=== PATIENT | male | born 1945 | race Caucasian/White ===

== ENCOUNTER 2019-12-07 09:51 | Inpatient (IN) ==
[2019-12-07] MEDS ORDERED: NITROGLYCERIN 2% OINTMENT 30GM TUBE EXT STA (10:19)
[2019-12-07] MEDS ORDERED: MoRPHine SULFATE 2 MG/ML CARP IV STA (10:19)
--- NOTE | 2019-12-07 10:21 | Emergency Department Note ---
Impression & Plan Precordial chest pain, CHF (congestive heart failure), Elevated troponin ED Provider Note NAME: MATILDE HOOKS AGE: 74 SEX: M : 1945 ARRIVES VIA: Ambulance INFORMANT: [Patient] ED PROVIDER(S): [Tesfaye Elizondo MD] CHIEF COMPLAINT: Chest pain HISTORY OF PRESENT ILLNESS: Patient is a 74-year-old male presents to the ER with chest pressure. The patient states that around 2 hours ago during masturbation, he began to have substernal chest pain that he thinks may have gone slightly to his jaw. The pain was a 6/10. He was sweating, nauseated and short of breath. He took 1 nitro which helped some. EMS gave him 3 more additional nitroglycerin and 4 baby aspirin. The patient states the pain is now a 3. There has been no cough or cold or congestion. No urinary complaints. The patient was admitted to [facility] a few weeks ago for heart failure. He was doing well since discharge up until today. REVIEW OF SYSTEMS: See HPI for pertinent positives and negatives. A total of ten systems were reviewed and were otherwise negative. PMHx/PSHx: See Below SOCIAL HISTORY: See Below. PHYSICAL EXAM: GENERAL: Patient is in no acute distress. HEENT: No acute trauma, normocephalic atraumatic, mucous membranes moist, no nasal congestion, no scleral icterus. NECK: No stridor, no adenopathy, no meningismus, trachea is midline. LUNGS: Clear to auscultation bilaterally, no wheeze, no rhonchi, breath sounds equal. Increased respiratory rate. HEART: Without murmurs gallops or rubs, regular rate and rhythm. Chest: Nontender chest wall. ABDOMEN: Soft, nontender, bowel sounds positive, no hernias, no peritonitis. EXTREMITIES: No cyanosis, mild bilateral pedal edema, full range of motion of all the joints without pain or difficulty, no signs for acute trauma. NEUROLOGIC: Oriented x 3, no acute motor or sensory deficits, no focal weakness. SKIN: No rash, no jaundice, no diaphoresis. DIFFERENTIAL DIAGNOSIS: Cardiac ischemia, aortic dissection, pulmonary embolism, pneumothorax, pneumonia, pericarditis, myocarditis, esophageal rupture, GERD, cholecystitis, pancreatitis, musculoskeletal, as well as other pathologies. EMERGENCY DEPARTMENT COURSE/PROCEDURES: ECG: Indication was chest pain. The ECG shows a ventricularly paced rhythm with a rate of 77. There is no ST elevation, no PVCs. The QTc is 527. No old ECGs available for comparison. Continuous Cardiac Monitoring: An order was placed for continuous cardiac monitoring. The monitor shows a rate of 71 with a ventricular pacemaker. MEDICAL DECISION MAKING: There is no leukocytosis. The patient is anemic with a hemoglobin of 11.8. There is a normal platelet count. INR is elevated at 4, he is over anticoagulated on his Coumadin. There is some evidence for renal insufficiency/renal failure with a creatinine of 2.15. I do not really have any baseline creatinines to use for comparison. Glucose was elevated at 231. No concerning liver enzyme elevation. No evidence for pancreatitis. BNP was elevated consistent with fluid overload. Chest film does show some CHF, no pneumonia. ECG shows a ventricular pacemaker, no acute ischemia. Cardiac enzyme testing x1 is elevated. This troponin elevation could indicate some cardiac injury/strain. The patient was given Nitropaste, he received IV morphine, IV Phenergan. The patient was given IV Lasix. The patient is now pain-free. I do think the patient requires a hospital stay. He presents with chest pain concerning for cardiac ischemia. He does have an elevated troponin, he does appear to be in some heart failure. He was just in the hospital about 2 weeks ago with CHF and a non-ST elevation [place]. I spoke to the patient, I spoke with case management. The on-call hospitalist was consulted. Past Med/Surg History Medical History Arrhythmia Atrial fibrillation Chronic kidney disease Diabetes mellitus, type 2 GERD (gastroesophageal reflux disease) Hyperlipidemia Hypertension ICD (implantable cardioverter-defibrillator) in place Surgical History History of cardiac cath History of heart artery stent History of heart valve replacement Social History Smoking Status: Never smoker Second Hand Exposure: No; Hx Alcohol Use: No Hx Substance Use: No Preferred Language: Occitan Communication Ability: Effective Prosthetics Technician Required: No Beliefs That Will Affect Care: None Current Living Situation: Alone current occupation: retired Other Information That Helps Us Care for You: No Feels Safe at Home: Yes Safety Concerns: Feels Safe At This Time Allergies Allergies Allergy/AdvReac Type Severity Reaction Status Date / Time heparin Allergy Unknown Unknown Unverified 12/07/19 11:10 Home Meds Home Medications Medication Instructions Recorded Confirmed albuterol sulfate 2 puff INHALATION QID 12/07/19 12/07/19 amiodarone 200 mg PO QAM 12/07/19 12/07/19 amoxicillin 2,000 mg PO DIRECTED PRN 12/07/19 12/07/19 ascorbic acid (vitamin C) [Vitamin 500 mg PO BID 12/07/19 12/07/19 C] atorvastatin 40 mg PO QAM 12/07/19 12/07/19 clopidogrel 75 mg PO QAM 12/07/19 12/07/19 cyanocobalamin (vitamin B-12) 1,000 mcg PO QAM 12/07/19 12/07/19 [Vitamin B-12] docusate sodium 100 mg PO BID 12/07/19 12/07/19 furosemide 80 mg PO QAM 12/07/19 12/07/19 insulin aspart U-100 [Novolog 0 unit SUBCUT As Directed 12/07/19 12/07/19 Flexpen U-100 Insulin] insulin degludec [Tresiba 36 unit SUBCUT QAM 12/07/19 12/07/19 FlexTouch U-200] isosorbide mononitrate 30 mg PO QAM 12/07/19 12/07/19 lisinopril 5 mg PO QAM 12/07/19 12/07/19 metoprolol succinate 25 mg PO HS 12/07/19 12/07/19 metoprolol succinate 50 mg PO DAILY 12/07/19 12/07/19 nitroglycerin 0.4 mg SUBLINGUAL DIRECTED PRN 12/07/19 12/07/19 omeprazole 20 mg PO QAM PRN 12/07/19 12/07/19 warfarin 1.25 - 2.5 mg PO DAILY 12/07/19 12/07/19 Results & Data (ED) Vital Signs Vital Signs - 24 hr 12/07/19 09:52 12/07/19 10:01 12/07/19 10:47 Temperature 36.4 C L Temperature Source Oral Pulse Rate 76 Pulse Rate [Right] 72 Respiratory Rate 24 24 Blood Pressure 148/62 H Blood Pressure [Right Arm] 148/65 H Blood Pressure Mean 90 Blood Pressure Mean [Right Arm] 92 Pulse Oximetry 94 94 100 Oxygen Delivery Method Room Air Room Air Room Air Sepsis Recent Fever Within 48 Hours No Sepsis New/Unexplained Change in Mental Status N/A Sepsis Action Taken by Nursing No Action Required 12/07/19 11:16 12/07/19 12:20 Temperature Temperature Source Pulse Rate Pulse Rate [Right] 72 72 Respiratory Rate 24 24 Blood Pressure Blood Pressure [Right Arm] 152/65 H 166/72 H Blood Pressure Mean Blood Pressure Mean [Right Arm] 94 103 Pulse Oximetry 99 100 Oxygen Delivery Method Room Air Room Air Sepsis Recent Fever Within 48 Hours Sepsis New/Unexplained Change in Mental Status Sepsis Action Taken by Skilled Nursing Medications Current Medication List: was personally reviewed by me Laboratory Data Attestation: I reviewed the patient's lab results. Result diagrams: 12/07/19 11:14 12/07/19 11:14 Lab Results 12/07/19 12/07/19 12/07/19 Range/Units 11:14 11:14 11:14 WBC 8.56 (4.8-10.8) K/uL RBC 3.82 L (4.7-6.1) M/uL Hgb 11.8 L (14.0-18.0) g/dL Hct 37.2 L (42-52) % MCV 97.4 (80-100) fL MCH 30.9 (25-34) pg MCHC 31.7 L (32-36) g/dL RDW Std Deviation 48.3 H (36.4-46.3) fL RDW Coeff of Rosio 13.6 (11.5-14.5) % Plt Count 235 (130-400) K/uL MPV 10.8 H (7.4-10.4) fL Immature Gran % (Auto) 0.5 % Neut % (Auto) 77.7 % Lymph % (Auto) 12.0 % [place] % (Auto) 8.4 % Eos % (Auto) 1.2 % Baso % (Auto) 0.2 % Neut # (Auto) 6.65 H (1.4-6.5) K/uL Lymph # (Auto) 1.03 L (1.2-3.4) K/uL [place] # (Auto) 0.72 H (0.11-0.59) K/uL Eos # (Auto) 0.10 (0-0.5) K/uL Baso # (Auto) 0.02 (0-0.2) K/uL Immature Gran # (Auto) 0.04 H (0.00-0.02) K/uL PT 39.0 H (9.0-12.0) Seconds INR 4.0 H (0.9-1.1) APTT 47.4 H* (21.0-31.0) Seconds PTT Ratio 1.7 Sodium 139 (136-145) mmol/L Potassium 4.6 (3.5-5.1) mmol/L Chloride 106 (98-107) mmol/L Carbon Dioxide 23 (21-32) mmol/L Anion Gap 10.0 (3-11) BUN 34 H (7-18) mg/dl Creatinine 2.15 H (0.6-1.4) mg/dl Est Cr Clr Drug Dosing Not Reportable Est GFR ( Amer) 34.1 Est GFR (Non-Af Amer) 29.5 BUN/Creatinine Ratio 15.9 (10-20) Glucose 231 H (70-99) mg/dl Calcium 9.0 (8.5-10.1) mg/dl Total Bilirubin 0.4 (0.2-1) mg/dl AST 38 H (15-37) U/L ALT 39 (12-78) U/L Alkaline Phosphatase 100 (45-117) U/L Troponin I 0.409 H* (0-0.045) ng/ml NT-Pro-B Natriuret Pep 1886 H (0-900) pg/ml Total Protein 7.6 (6.4-8.2) gm/dl Albumin 3.5 (3.4-5.0) gm/dl Globulin 4.1 H (2.5-4.0) gm/dl Albumin/Globulin Ratio 0.8 L (0.9-2) Lipase 193 (73-393) U/L Administered Medications Discontinued Medications Furosemide (Furosemide 40 Mg/4 Ml Vial) 60 mg IV NOW STA Stop: 12/07/19 12:38 Last Admin: 12/07/19 12:59 Dose: 60 mg Documented by: [id number] Promethazine HCl (Phenergan) 6.25 mg in 50.25 mls @ 201 mls/hr IV NOW STA Stop: 12/07/19 12:58 Last Admin: 12/07/19 12:59 Dose: 201 mls/hr Documented by: [id number] Morphine Sulfate (Morphine Sulfate 2 Mg/Ml Carp) 2 mg IV NOW STA Stop: 12/07/19 10:20 Last Admin: 12/07/19 10:44 Dose: 2 mg Documented by: [id number] Nitroglycerin (Nitroglycerin 2% Ointment 30gm Tube) 1 inch EXT NOW STA Stop: 12/07/19 10:20 Last Admin: 12/07/19 10:44 Dose: 1 inch Documented by: [id number] Imaging Data Radiologist's Impression: SINGLE VIEW CHEST CLINICAL HISTORY: Atypical chest pain. FINDINGS: 2 AP, portable, upright chest radiographs are obtained. No prior studies are available for comparison at the time of dictation. The examination is degraded by portable technique and patient rotation. The patient is status post midline sternotomy and cardiac valve surgery. A 3-lead cardiac AICD partially obscures the left mid chest. The heart is enlarged noting atherosclerotic calcification of the thoracic aorta. There is pulmonary vascular congestion with mild interstitial edema. There are small pleural effusions with bibasilar atelectasis. No pneumothorax is seen. The skeletal structures are osteopenic. The bony thorax is grossly intact. IMPRESSION: 1. Cardiomegaly and AICD with evidence of congestive failure and interstitial edema. 2. There are small pleural effusions with bibasilar atelectasis. Blood Pressure Blood Pressure Findings: Elevated blood pressure Blood Pressure Disposition: further management by hospitalist Discharge Plan Visit Data Chief Complaint: Chest Pain ED Provider: Tesfaye Elizondo Discharge Problem: Precordial chest pain, CHF (congestive heart failure), Elevated troponin Patient Disposition: Admitted As Inpatient Condition: Good Forms Stand Alone Forms: My [facility] Prescriptions Prescriptions: No Action amoxicillin 500 mg capsule 2,000 mg PO DIRECTED PRN (Reason: premedication for dental appt) RF: 0 atorvastatin 40 mg tablet 40 mg PO QAM RF: 0 amiodarone 200 mg tablet 200 mg PO QAM RF: 0 metoprolol succinate 50 mg tablet extended release 24 hr 50 mg PO DAILY RF: 0 isosorbide mononitrate 30 mg tablet extended release 24 hr 30 mg PO QAM RF: 0 warfarin 2.5 mg tablet 1.25 - 2.5 mg PO DAILY RF: 0 clopidogrel 75 mg tablet 75 mg PO QAM RF: 0 furosemide 80 mg tablet 80 mg PO QAM RF: 0 nitroglycerin 0.4 mg tablet, sublingual 0.4 mg sublingual DIRECTED PRN (Reason: Chest Pain) RF: 0 omeprazole 20 mg capsule,delayed release(DR/EC) 20 mg PO QAM PRN (Reason: upset stomach/heartburn) RF: 0 lisinopril 5 mg tablet 5 mg PO QAM RF: 0 albuterol sulfate 90 mcg/actuation HFA aerosol inhaler 2 puff INHALATION QID RF: 0 insulin aspart U-100 [Novolog Flexpen U-100 Insulin] 100 unit/mL (3 mL) insulin pen 0 unit SUBCUT As Directed RF: 0 Tresiba FlexTouch U-200 200 unit/mL (3 mL) insulin pen 36 unit SUBCUT QAM RF: 0 cyanocobalamin (vitamin B-12) [Vitamin B-12] 1,000 mcg Tablet 1,000 mcg PO QAM RF: 0 ascorbic acid (vitamin C) [Vitamin C] 500 mg Tablet,Chewable 500 mg PO BID RF: 0 docusate sodium 100 mg Capsule 100 mg PO BID RF: 0 metoprolol succinate 50 mg Tablet Extended Release 24 Hr 25 mg PO HS RF: 0 Referrals Referrals: Glenn Payne PA-C [Primary Care Provider] - Discharge Problem: CHF (congestive heart failure) Qualifiers: Heart failure type: unspecified Heart failure chronicity: acute on chronic Qualified Code(s): I50.9 - Heart failure, unspecified
[2019-12-07 11:34] LABS: Basophils # (auto) 0.02 K/uL (0-0.2); Basophils % (auto) 0.2 %; Eosinophils % (auto) 1.2 %; Hematocrit (blood only) 37.2 % (42-52); Hemoglobin 11.8 g/dL (14.0-18.0); Immature Granulocytes # (auto) 0.04 K/uL (0.00-0.02); Immature Granulocytes % (auto) 0.5 %; Lymphocytes # (auto) 1.03 K/uL (1.2-3.4); Mean Corpuscular Hemoglobin 30.9 pg (25-34); Mean Corpuscular Hgb Conc 31.7 g/dL (32-36); Mean Corpuscular Volume 97.4 fL (80-100); Mean Platelet Volume 10.8 fL (7.4-10.4); Monocytes # (auto) 0.72 K/uL (0.11-0.59); Monocytes % (auto) 8.4 %; Neutrophils # (auto) 6.65 K/uL (1.4-6.5); Neutrophils % (auto) 77.7 %; Platelet Count 235 K/uL (130-400); RDW Coefficient of Variation 13.6 % (11.5-14.5); RDW Standard Deviation 48.3 fL (36.4-46.3); Red Blood Count 3.82 M/uL (4.7-6.1); White Blood Count 8.56 K/uL (4.8-10.8)
--- NOTE | 2019-12-07 11:53 | XRay Report ---
SINGLE VIEW CHEST CLINICAL HISTORY: Atypical chest pain. FINDINGS: 2 AP, portable, upright chest radiographs are obtained. No prior studies are available for comparison at the time of dictation. The examination is degraded by portable technique and patient ro tation. The patient is status post midline sternotomy and cardiac valve surgery. A 3-lead cardiac AIC D partially obscures the left mid chest. The heart is enlarged noting atherosclerotic calcification o f the thoracic aorta. There is pulmonary vascular congestion with mild interstitial edema. There are small pleural effusions with bibasilar atelectasis. No pneumothorax is seen. The skeletal structures are osteopenic. The bony thorax is grossly intact. IMPRESSION: 1. Cardiomegaly and AICD with evidence of congestive failure and interstitial edema. 2. There are small pleural effusions with bibasilar atelectasis. ACT 112: Negative or not required by law. Electronically signed by: Tesfaye Lock M.D. 12/07/2019 11:52 AM
[2019-12-07 11:54] LABS: Partial Thromboplastin Ratio 1.7
[2019-12-07 11:56] LABS: Alanine Aminotransferase 39 U/L (12-78); Albumin Level 3.5 gm/dl (3.4-5.0); Aspartate Aminotransferase 38 U/L (15-37); BUN Creatinine Ratio 15.9 (10-20); Blood Urea Nitrogen 34 mg/dl (7-18); Carbon Dioxide 23 mmol/L (21-32); Chloride 106 mmol/L (98-107); Est GFR (African American) 34.1; Est GFR (Non-African American) 29.5; Glucose 231 mg/dl (70-99); Lipase 193 U/L (73-393); Potassium 4.6 mmol/L (3.5-5.1); Sodium 139 mmol/L (136-145)
[2019-12-07 11:57] LABS: Partial Thromboplastin Time 47.4 Seconds (21.0-31.0)
[2019-12-07 12:19] LABS: Albumin Globulin Ratio 0.8 (0.9-2); Alkaline Phosphatase 100 U/L (45-117); Bilirubin,Total 0.4 mg/dl (0.2-1); Globulin 4.1 gm/dl (2.5-4.0); NT Pro B Type Natriuretic Pept 1886 pg/ml (0-900); Total Protein 7.6 gm/dl (6.4-8.2)
[2019-12-07 12:24] LABS: Troponin I 0.409 ng/ml (0-0.045)
[2019-12-07] MEDS ORDERED: FUROSEMIDE 40 MG/4 ML VIAL IV STA ×2 (12:37→15:31)
[2019-12-07] MEDS ORDERED: PROMETHAZINE 6.25 MG/50.25 ML BAG IV STA (12:44)
--- NOTE | 2019-12-07 13:25 | History & Physical Report ---
Date of Service December 07, 2019 Assessment & Plan (1) Precordial chest pain: (2) Elevated troponin: (3) Acute on chronic HFrEF (heart failure with reduced ejection fraction): (4) CAD (coronary artery disease): This is a 74-year-old male who has significant past medical history of Chronic HFrEF 2/2 to ischemic cardiomyopathy with AICD placement, CAD with history of CABG x1 SVG to RCA 2013, history of aortic valve replacement in 2005 with a redo in 2013 and subsequent mitral valve replacement both bioprosthetic in 2013, PCI to LAD 07/2018 secondary to abnormal stress test, insulin-dependent T2DM, HTN, HLD, LBBB, CKD stage IV who presents to ED secondary to acute onset chest pain 2 hours prior to arrival. In ED patient received IV morphine along with 1 inch nitroglycerin paste and 6.25 mg of IV promethazine. His chest pain subsequently completely resolved. Lab work revealed elevated troponin at 0.409, elevated proBNP at 1886, glucose 231, stable renal function at BUN 34, creatinine 2.15, supratherapeutic INR 4.0, H&H 11.8 and 37.2. EKG was paced without any ischemic changes. Chest x-ray consistent with Acute failure interstitial edema, small bilateral pleural effusions and bibasilar atelectasis. admit to PCU Continue IV diuresis Lasix 60mg IV BID strict I and O, daily weights, heart healthy low NA diet consult cardiology cycle troponins, ecg elevated trop possibly in setting of demand ischemia due to CHF - INR is supratherapeutic repeat echocardiogram (apparently done at [facility] 2 weeks ago will try to obtain records) (5) Supratherapeutic INR: INR 4.0, no s/sx of bleeding hold warfarin repeat INR in a.m. goal 2-3 (6) Diabetes mellitus, type 2: Last A1c 6.5 06/12, he is insulin-dependent obtain A1c in a.m. He did not take a.m. dose of tresiba this morning give 14 units lantus x 1 now Lantus SQ BID 0-14 units, Novolog per protocol consult glycemic pharmacy, appreciate their management (7) CKD (chronic kidney disease) stage 4, GFR 15-29 ml/min: baseline cr 2.2-2.7 bun/cr stable at 34 and 2.15 Monitor closely in setting of IV diuresis (8) OBED on CPAP: CPAP at bedtime (9) Hypertension: Blood pressure elevated in ED, 166/72 Continue metoprolol, lisinopril, Imdur Monitor (10) Hyperlipidemia: Continue statin (11) Pernicious anemia: H&H stable at 11.8 and 37.2 Likely anemia of chronic disease component On vitamin B12 injections as outpatient (12) DVT prophylaxis: Warfarin currently supratherapeutic, INR 4.0 no signs or symptoms of bleeding hold warfarin, repeat INR in a.m. Disposition: admit to PCU Follow up: PCP Glenn Payne PA-C upon discharge Pt was seen and examined in collaboration with Dr. Paredes, please see addendum History of Present Illness Chief Complaint: Chest pain 2 hours prior to arrival. Primary Care Provider: Glenn Payne PA-C This is a 74-year-old male who has significant past medical history of Chronic HFrEF 2/2 to ischemic cardiomyopathy with AICD placement, CAD with history of CABG x1 SVG to RCA 2013, history of aortic valve replacement in 2005 with a redo in 2013 and subsequent mitral valve replacement both bioprosthetic in 2013, PCI to LAD 07/2018 secondary to abnormal stress test, insulin-dependent T2DM, HTN, HLD, LBBB, CKD stage IV who presents to ED secondary to acute onset chest pain 2 hours prior to arrival. Patient elicits he was masturbating when he developed substernal chest pain that radiated to his jaw. Pain was 6/10 and was associated with diaphoresis, shortness of breath and nausea. He took 1 nitro with minimal improvement in symptoms. He called EMS and subsequently had 3 additional sublingual nitroglycerin and received 4 baby aspirin. His pain did improve to 3/10 but did not resolve. He describes similar symptoms to angina equivalent in the past. He denies any lightheadedness, dizziness, fever, chills, syncope, palpitations, cough, emesis, abdominal pain, dysuria, increased urgency or frequency with urination, melena, hematochezia. Denies any lower ex tremity swelling, orthopnea or PND. Of significance patient was recently hospitalized at [facility] as a transfer from [facility] for CHF and NSTEMI. Spell stay was 11/23 to 11/25. He did undergo transthoracic echo at that time which revealed EF 55 to 60% per PCP visit. He was treated with IV Lasix during his hospital stay. His hospital course was otherwise uncomplicated and he was discharged to home. He had been doing well until 2 hours prior to arrival today. He admits to not monitoring his weights at home, but he feels his baseline weight is around 316. He has not been doing well with his diet although he has been trying to limit salt intake. He does not monitor his fluid intake. Has been compliant with his 80 mg of Lasix daily. In ED patient received IV morphine along with 1 inch nitroglycerin paste and 6.25 mg of IV promethazine. His chest pain subsequently completely resolved. Lab work revealed elevated troponin at 0.409, elevated proBNP at 1886, glucose 231, stable renal function at BUN 34, creatinine 2.15, supratherapeutic INR 4.0, H&H 11.8 and 37.2. EKG was paced without any ischemic changes. Chest x-ray consistent with Acute failure interstitial edema, small bilateral pleural effusions and bibasilar atelectasis. Allergies Allergy/AdvReac Type Severity Reaction Status Date / Time heparin Allergy Unknown Unknown Unverified 12/07/19 11:10 Home Medications Home Medications Medication Instructions Recorded Confirmed Type albuterol sulfate 2 puff INHALATION QID 12/07/19 12/07/19 History amiodarone 200 mg PO QAM 12/07/19 12/07/19 History amoxicillin 2,000 mg PO DIRECTED PRN 12/07/19 12/07/19 History ascorbic acid (vitamin C) [Vitamin 500 mg PO BID 12/07/19 12/07/19 History C] atorvastatin 40 mg PO QAM 12/07/19 12/07/19 History clopidogrel 75 mg PO QAM 12/07/19 12/07/19 History cyanocobalamin (vitamin B-12) 1,000 mcg PO QAM 12/07/19 12/07/19 History [Vitamin B-12] docusate sodium 100 mg PO BID 12/07/19 12/07/19 History furosemide 80 mg PO QAM 12/07/19 12/07/19 History insulin aspart U-100 [Novolog 0 unit SUBCUT As Directed 12/07/19 12/07/19 History Flexpen U-100 Insulin] insulin degludec [Tresiba 36 unit SUBCUT QAM 12/07/19 12/07/19 History FlexTouch U-200] isosorbide mononitrate 30 mg PO QAM 12/07/19 12/07/19 History lisinopril 5 mg PO QAM 12/07/19 12/07/19 History metoprolol succinate 25 mg PO HS 12/07/19 12/07/19 History metoprolol succinate 50 mg PO DAILY 12/07/19 12/07/19 History nitroglycerin 0.4 mg SUBLINGUAL DIRECTED PRN 12/07/19 12/07/19 History omeprazole 20 mg PO QAM PRN 12/07/19 12/07/19 History warfarin 1.25 - 2.5 mg PO DAILY 12/07/19 12/07/19 History Past Med/Surg History Medical History (Updated 12/07/19 @ 14:14 by Ariela Otero PA-C) Arrhythmia Atrial fibrillation CAD (coronary artery disease) coronary artery bypass grafting x1 with reverse saphenous vein from aorta to right coronary artery via endoscopic saphenous vein harvesting. Chronic HFrEF (heart failure with reduced ejection fraction) Chronic kidney disease CKD (chronic kidney disease) stage 4, GFR 15-29 ml/min Diabetes mellitus, type 2 GERD (gastroesophageal reflux disease) Hyperlipidemia Hypertension OBED on CPAP PAF (paroxysmal atrial fibrillation) Pernicious anemia Surgical History (Updated 12/07/19 @ 14:04 by Ariela Otero PA-C) H/O aortic valve replacement Status post bioprosthetic AVR in 2004 Aortic valve prosthesis stenosis and mitral regurgitation requiring redo sternotomy jul 21 2013 with redo AVR and subsequent MVR. H/O mitral valve replacement History of appendectomy History of cardiac cath History of colonoscopy History of coronary artery bypass graft x 1 coronary artery bypass grafting x1 with reverse saphenous vein from aorta to right coronary artery via endoscopic saphenous vein harvesting. History of heart artery stent History of heart valve replacement ICD (implantable cardioverter-defibrillator) in place Family History Father Heart disease [place] @ age 64 Mother , age 34, stomach ca Cancer Social History Smoking Status: Never smoker Second Hand Exposure: No; Hx Alcohol Use: No Hx Substance Use: No Preferred Language: Taiwanese Communication Ability: Effective Field Counsel Required: No Beliefs That Will Affect Care: None Current Living Situation: Alone current occupation: retired Other Information That Helps Us Care for You: No Feels Safe at Home: Yes Safety Concerns: Feels Safe At This Time Review of Systems Review of Systems: All systems reviewed & are unremarkable except as noted in HPI & below Physical Exam Physical Exam: Constitutional: Morbidly obese, M, lying in bed, WD/WN, vitals as above, NAD, dyspneic with conversation, answers questions appropriately Head: Normocephalic, Atraumatic Eyes: PERRL, conjunctivae normal, anicteric sclerae ENMT: external ear and nose normal, oropharynx normal Neck: trachea midline, no thyromegaly normal visual inspection Respiratory: normal respiratory effort, lungs clear to auscultation, no wheeze, rales, bibasilar rhonchi. Normal insp/exp effort, no accessory muscle use Cardiovascular: RRR, no murmur, trace pretibial edema , b/l pedal pulse +2 Vessels: no JVD or carotid bruit Chest: normal inspection of chest Abdomen: protuberant abd, normal bowel sounds, soft, nontender, no hepatosplenomegaly Musculoskeletal: no cyanosis or clubbing, extremities motor strength 5/5 Skin: no rashes, warm and dry normal turgor Neurologic: PERRL, EOMI, accommodation nl, no face palsy, no dysarthria CN's II-XI intact bilaterally and moves all extremities Psychiatric: A+Ox3, euthymic affect Lymphatic: no cervical or axillary lymphadenopathy : deferred Results & Data Results & Data ([facility]) Vital Signs (Past 12 Hours) Vital Signs Temp Pulse Pulse Resp BP BP Pulse Ox 12/07/19 12:20 72 24 166/72 H 100 12/07/19 11:16 72 24 152/65 H 99 12/07/19 10:47 72 24 148/65 H 100 12/07/19 10:01 94 12/07/19 09:52 36.4 C L 76 24 148/62 H 94 Laboratory Results Short CBC 12/07/19 12/07/19 Range/Units 11:14 11:14 WBC 8.56 (4.8-10.8) K/uL Hgb 11.8 L (14.0-18.0) g/dL Hct 37.2 L (42-52) % Plt Count 235 (130-400) K/uL Creatinine 2.15 H (0.6-1.4) mg/dl NT-Pro-B Natriuret Pep 1886 H (0-900) pg/ml BMP 12/07/19 11:14 Sodium 139 Potassium 4.6 Chloride 106 Carbon Dioxide 23 BUN 34 H Creatinine 2.15 H Glucose 231 H Calcium 9.0 Cardiac Enzymes 12/07/19 Range/Units 11:14 Troponin I 0.409 H* (0-0.045) ng/ml Liver Function 12/07/19 Range/Units 11:14 Total Bilirubin 0.4 (0.2-1) mg/dl AST 38 H (15-37) U/L ALT 39 (12-78) U/L Alkaline Phosphatase 100 (45-117) U/L Albumin 3.5 (3.4-5.0) gm/dl Diagnostic Findings CXR: IMPRESSION: 1. Cardiomegaly and AICD with evidence of congestive failure and interstitial edema. 2. There are small pleural effusions with bibasilar atelectasis. Medications Administered Discontinued Medications Furosemide (Furosemide 40 Mg/4 Ml Vial) 60 mg IV NOW STA Stop: 12/07/19 12:38 Last Admin: 12/07/19 12:59 Dose: 60 mg Documented by: [id number] Promethazine HCl (Phenergan) 6.25 mg in 50.25 mls @ 201 mls/hr IV NOW STA Stop: 12/07/19 12:58 Last Admin: 12/07/19 12:59 Dose: 201 mls/hr Documented by: [id number] Morphine Sulfate (Morphine Sulfate 2 Mg/Ml Carp) 2 mg IV NOW STA Stop: 12/07/19 10:20 Last Admin: 12/07/19 10:44 Dose: 2 mg Documented by: [id number] Nitroglycerin (Nitroglycerin 2% Ointment 30gm Tube) 1 inch EXT NOW STA Stop: 12/07/19 10:20 Last Admin: 12/07/19 10:44 Dose: 1 inch Documented by: [id number] ECG Findings: + paced rhythm Code Status & VTE Plan Code Status Full Code VTE Prophylaxis Plan VTE Prophylaxis will be ordered: Yes Supervising Physician Co-Signing Physician Notes I saw this patient with the physician medical staff assistant, I participated in the history, physical, review of systems, and physical exam. I reviewed the medications with the patient and the physician medical staff assistant and helped reconcile the medications. I helped take a detailed family and social history as well. I formulated the assessment and plan personally with the physician medical staff assistant and went over it with the patient. Physical Exam Gen-AAO x 3, NAD, Afebrile Head-NCAT, EOMI, PERRLA, Anicteric Sclera, No Posterior Pharyngeal Erythema Neck-Supple, No JVD, No Thyromegaly, No Masses, No LAD, No Bruits Lungs-Clear to Auscultation Bilaterally, No Rales, No Rhonchi, No Wheezing, No Crepitus Chest-No S4, +S1, +S2, No S3, No Murmurs, No Rubs, No Gallops, No Ectopy Abdomen-Soft, Bowel Sounds Present, Non Tender, Non Distended, No Hepatomegaly, No Splenomegaly, No Palpable Masses, No Rebound, No Rigidity, No Guarding Musculoskeletal-Full Range of Motion Bilaterally, No CVAT Extremities-No Cyanosis, No Clubbing, No Edema Nuero-Cranial Nerves II-XII grossly intact, Motor WNL, DTRs WNL, Strength WNL, Non Focal Psych-Normal Mood
--- NOTE | 2019-12-07 15:18 | Electrocardiogram Report ---
Test Reason : Blood Pressure : / mmHG Vent. Rate : 077 BPM Atrial Rate : 077 BPM P-R Int : 154 ms QRS Dur : 146 ms QT Int : 466 ms P-R-T Axes : -09 -65 039 degrees QTc Int : 527 ms Atrial-sensed ventricular-paced rhythm Biventricular pacemaker detected Abnormal ECG No previous ECGs available Confirmed by Feliz Alvarado ([id number]) on 12/07/2019 3:18:20 PM Referred By: REFERRED SELF Confirmed By:Feliz Alvarado
[2019-12-07] MEDS ORDERED: DEXTROSE 50% 50 ML SYRINGE IV PRN (15:31)
[2019-12-07] MEDS ORDERED: GLUCOSE 40% GEL 15 GM TUBE PO PRN (15:31)
[2019-12-07] MEDS ORDERED: ONDANSETRON INJ 2 MG/ML 2 ML VIAL IV PRN (15:31)
[2019-12-07] MEDS ORDERED: GLUCOSE 10 TABS/TUBE PO PRN (15:31)
[2019-12-07] MEDS ORDERED: POLYETHYLENE (MIRALAX) 17 GM PACK PO PRN (15:31)
[2019-12-07] MEDS ORDERED: ACETAMINOPHEN 325 MG TAB PO PRN (15:31)
[2019-12-07] MEDS ORDERED: CARBOHYDRATES FOR HYPOGLYCEMIA PO PRN (15:31)
[2019-12-07] MEDS ORDERED: GLUCAGON FOR INJ 1 MG VIAL SQ PRN (15:31)
[2019-12-07] MEDS ORDERED: PHARMACY GLYCEMIC MGMT CONSULT PRN (15:34)
[2019-12-07] MEDS ORDERED: PANTOprazole 40 MG TAB PO PRN (15:38)
[2019-12-07] MEDS ORDERED: INSULIN GLARGINE SOLOSTAR 100 UNITS/ML 3 ML PEN SC ONE ×2 (15:45→16:00)
--- NOTE | 2019-12-07 15:48 | Cardiology Consultation ---
Date of Consultation December 07, 2019 Assessment & Plan (1) Acute on chronic HFrEF (heart failure with reduced ejection fraction): (2) Non-ST elevation (NSTEMI) myocardial infarction: (3) Syncope: (4) CKD (chronic kidney disease) stage 4, GFR 15-29 ml/min: (5) Supratherapeutic INR: (6) H/O mitral valve replacement: (7) H/O aortic valve replacement: (8) PAF (paroxysmal atrial fibrillation): 74-year-old male admitted with chest discomfort and shortness of breath secondary to acute decompensated heart failure. Most recent echocardiogram performed at outside hospital suggested normal systolic function, however, patient's ejection fraction has typically range between 35 -44% over the past 2 years. Evidence of pulmonary edema and pleural effusion on chest x-ray. Agree with IV diuretic therapy, Lasix 60 mg every 12 hours. INR is supratherapeutic. No indication for IV heparin currently. Repeat INR in a.m. Elevated troponin likely secondary to demand ischemia in the setting of acute decompensated heart failure however, plaque rupture event not excluded. Trend cardiac enzymes x3 sets. Repeat resting 2D transthoracic echocardiogram. Follow daily weight, GFR, fluid balance, and electrolytes. ICD interrogation ordered for assessment of paroxysmal dysrhythmias and/or therapies/shocks delivered. Possible syncopal episode noted. Normal biventricular pacing noted on telemetry. Continue other cardiovascular medications including metoprolol succinate, amiodarone, topical nitrates, clopidogrel, and atorvastatin. 40 minutes critical care time spent evaluating patient, reviewing complex medical history, reviewing studies and lab data, formulating plan of care, and discussion with patient at bedside. History of Present Illness Reason for Consultation: CP, CHF, elevated troponin Requesting Physician: Dr. Paredes Attending Physician: Corwin Paredes DO History of Present Illness Complex 74-year-old patient presented to the emergency department via EMS secondary to chest discomfort and shortness of breath. Complex history noted below. Patient recently hospitalized in [facility] and then [place] due to acute decompensated heart failure. Discharge approximately 10 days ago. This morning, patient awoke in his usual state of health. Developed chest discomfort after masturbation. Wearing CPAP. Describes a tightness which was 5/10 in intensity. +associated shortness of breath as well as diaphoresis. Discomfort unrelieved with one sublingual nitroglycerin at home. After taking nitroglycerin, patient laid back on his bed. States he felt quite weak. Unsure if he suffered a syncopal episode. EMS was summoned and he was brought to the emergency department for further evaluation and treatment. Patient treated with IV Lasix, topical nitrates, sublingual and nitroglycerin. Chest discomfort relieved in the ER. 500 cc diuresis recorded. Troponin mildly elevated with supratherapeutic INR. Denies any ICD shocks or therapies, however, asymptomatic with prior ICD shock in 2019. Currently, patient is resting comfortably. Chest pain has resolved. Denies shortness of breath, orthopnea, or PND. No lower extremity today, however, states typically occurs while ambulating and then resolves overnight. No palpitations, lightheadedness, dizziness, syncope, or near syncope. Telemetry monitoring demonstrates ventricular paced rhythm. ECG on admission demonstrates atrial sensed, biventricular paced rhythm. Problem List: 1. Bicuspid aortic valve, severe aortic valve stenosis 2. Status post bioprosthetic AVR in 2004. 3. 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 Status post July 21, 2013 redo sternotomy, redo AVR (23 mm Trifecta), chordal sparing mitral valve replacement with a 31 mm Magna ease valve, and coronary artery bypass grafting x1 with reverse saphenous vein from aorta to right coronary artery via endoscopic saphenous vein harvesting. 5. Postoperative course complicated by a return to the operating room for bleeding which required repair of a hole at the aortic valve suture line, paroxysmal atrial fibrillation postoperatively, and a left bundle branch block 6. Moderate LV systolic dysfunction, NYHA Class III congestive heart failure 7. Status post August 31, 2014 biventricular ICD implantation by Dr. Sorensen. 8. Paroxysmal atrial fibrillation and flutter. [id number] score is 5 points. 9. Chronic coumadin anticoagulation. 10. Ventricular fibrillation leading to ICD discharges on March 30, 2018 and May 21, 2018. 11. Chronic renal insufficiency 12. Obstructive sleep apnea 13. Pernicious anemia 14. Hypertension 15. Dyslipidemia 16. Obesity 17. OBED, CPAP therapy 18. Appendectomy 2D echocardiogram report summary 11/25/2019, [facility]: 1. This study is technically difficult, technically difficult and improved to adequate with the use of Definity. 2. Normal global function of the left ventricle. 3. LV ejection fraction is 55 - 60%. 4. No left ventricular regional wall motion abnormalities. 5. Normal right ventricular size and systolic function. 6. No pericardial effusion is seen. 7. No prior study was available for comparison. July 15, 2018 TTE Interpretation Summary (as per Dr. Iglesias): The qualitative LV ejection fraction is 35-39% (moderately reduced). The LV wall thickness is moderately increased (concentric). The base and mid posterior wall is severely hypokinetic. The inferior wall is severely hypokinetic. The remaining left ventricular myocardial wall segments are mildly hypokinetic. The left atrium is severely enlarged. There is an aortic valve bioprosthetic present. The aortic valve prosthesis systolic gradients are normal for this type prosthesis. There is a mitral valve bioprosthesis present. The mitral valve prosthesis systolic gradients are normal for this type prosthesis. The proximal ascending thoracic aorta is mildly enlarged. Compared to last available study changes are noted as follows: Left ventricular ejection fraction has declined Diagnostic cardiac catheterization at [facility] on August 02, 2018 revealed a culprit lesion in the mid LAD that was successfully treated with one 2.75 x 16 mm Synergy Monorail Everolimuis-eluting Romney Chromium stent. The ostial [place] RCA was occluded. The SVG to RCA was patent and filled anterograde and retrograde back to the ostium of the RCA (with no efflux into aorta) and distally to the distal rPLs and rPDA. The LCx had moderate disease. The LVEDP was 17 mmHg. Allergies Allergy/AdvReac Type Severity Reaction Status Date / Time heparin Allergy Unknown Unknown Unverified 12/07/19 11:10 Home Medications Home Medications Medication Instructions Recorded Confirmed Type albuterol sulfate 2 puff INHALATION QID 12/07/19 12/07/19 History amiodarone 200 mg PO QAM 12/07/19 12/07/19 History amoxicillin 2,000 mg PO DIRECTED PRN 12/07/19 12/07/19 History ascorbic acid (vitamin C) [Vitamin 500 mg PO BID 12/07/19 12/07/19 History C] atorvastatin 40 mg PO QAM 12/07/19 12/07/19 History clopidogrel 75 mg PO QAM 12/07/19 12/07/19 History cyanocobalamin (vitamin B-12) 1,000 mcg PO QAM 12/07/19 12/07/19 History [Vitamin B-12] docusate sodium 100 mg PO BID 12/07/19 12/07/19 History furosemide 80 mg PO QAM 12/07/19 12/07/19 History insulin aspart U-100 [Novolog 0 unit SUBCUT As Directed 12/07/19 12/07/19 History Flexpen U-100 Insulin] insulin degludec [Tresiba 36 unit SUBCUT QAM 12/07/19 12/07/19 History FlexTouch U-200] isosorbide mononitrate 30 mg PO QAM 12/07/19 12/07/19 History lisinopril 5 mg PO QAM 12/07/19 12/07/19 History metoprolol succinate 25 mg PO HS 12/07/19 12/07/19 History metoprolol succinate 50 mg PO DAILY 12/07/19 12/07/19 History nitroglycerin 0.4 mg SUBLINGUAL DIRECTED PRN 12/07/19 12/07/19 History omeprazole 20 mg PO QAM PRN 12/07/19 12/07/19 History warfarin 1.25 - 2.5 mg PO DAILY 12/07/19 12/07/19 History Patient History Medical History (Updated 12/08/19 @ 10:34 by Bryan Iglesias DO) Arrhythmia Atrial fibrillation CAD (coronary artery disease) coronary artery bypass grafting x1 with reverse saphenous vein from aorta to right coronary artery via endoscopic saphenous vein harvesting. Chronic HFrEF (heart failure with reduced ejection fraction) Chronic kidney disease CKD (chronic kidney disease) stage 4, GFR 15-29 ml/min Diabetes mellitus, type 2 GERD (gastroesophageal reflux disease) Hyperlipidemia Hypertension OBED on CPAP PAF (paroxysmal atrial fibrillation) Pernicious anemia Surgical History (Updated 12/07/19 @ 14:04 by Ariela Otero PA-C) H/O aortic valve replacement Status post bioprosthetic AVR in 2004 Aortic valve prosthesis stenosis and mitral regurgitation requiring redo sternotomy jul 21 2013 with redo AVR and subsequent MVR. H/O mitral valve replacement History of appendectomy History of cardiac cath History of colonoscopy History of coronary artery bypass graft x 1 coronary artery bypass grafting x1 with reverse saphenous vein from aorta to right coronary artery via endoscopic saphenous vein harvesting. History of heart artery stent History of heart valve replacement ICD (implantable cardioverter-defibrillator) in place Family History Father Heart disease [place] @ age 64 Mother , age 34, stomach ca Cancer Social History Smoking Status: Never smoker Second Hand Exposure: No; Hx Alcohol Use: No Hx Substance Use: No Preferred Language: Djiboutian Communication Ability: Effective Range Management Specialist Required: No Beliefs That Will Affect Care: None Current Living Situation: Alone current occupation: retired Other Information That Helps Us Care for You: No Feels Safe at Home: Yes Safety Concerns: Feels Safe At This Time Review of Systems Review of Systems: All systems reviewed & are unremarkable except as noted in HPI & below Physical Exam Constitutional: well nourished and + morbidly obese; no acute distress Respiratory: no respiratory distress and no labored breathing Auscultation: + diminished lung sounds (Right base) and + rales (Right base); no rhonchi and no wheezes Cardiovascular: Rate/Rhythm: regular rate and regular rhythm Heart Sounds: normal S1, normal S2 and + murmur (2/6 systolic murmur heard best at the cardiac base.) Vessels: + JVD; + radial pulses abnormal Extremities: no edema Skin: no rashes, warm and dry Neurologic: moves all extremities; no focal motor deficits Speech / Cognition: normal speech Motor/Sensory: no tremor Psychiatric: A+Ox3, euthymic affect Results & Data ([facility]) Vital Signs (Past 12 Hours) Vital Signs Temp Pulse Pulse Resp BP BP Pulse Ox 12/07/19 15:18 36.6 C 87 16 169/80 H 96 12/07/19 15:02 96 12/07/19 14:45 80 20 172/82 H 96 12/07/19 12:20 72 24 166/72 H 100 12/07/19 11:16 72 24 152/65 H 99 12/07/19 10:47 72 24 148/65 H 100 12/07/19 10:01 94 12/07/19 09:52 36.4 C L 76 24 148/62 H 94 (1) Syncope Syncope type: unspecified Qualified Code(s): R55 - Syncope and collapse
[2019-12-07] MEDS: FUROSEMIDE 60 MG in SYRINGE 0 ML IV SCH (16:16)
[2019-12-07] MEDS: INSULIN ASPART 100 UNITS/ML 3 ML PEN SC SCH ×2 (17:54→20:41)
[2019-12-07] MEDS: NITROGLYCERIN 2% OINTMENT 30GM TUBE EXT SCH ×2 (17:57→23:33)
[2019-12-07] MEDS: ALBUTEROL HFA 8 GM INHALER INH SCH (19:18)
[2019-12-07] MEDS: DOCUSATE SODIUM 100 MG CAP PO SCH (20:40)
[2019-12-07] MEDS: ASCORBIC ACID 500 MG TAB PO SCH (20:42)
[2019-12-07] MEDS ORDERED: METOPROLOL SUCC 25MG EXT REL TAB PO SCH (21:00)
[2019-12-08 06:00] LABS: Hematocrit (blood only) 40.4 % (42-52); Hemoglobin 13.1 g/dL (14.0-18.0); Mean Corpuscular Hemoglobin 31.5 pg (25-34); Mean Corpuscular Hgb Conc 32.4 g/dL (32-36); Mean Corpuscular Volume 97.1 fL (80-100); Platelet Count 264 K/uL (130-400); RDW Coefficient of Variation 13.7 % (11.5-14.5); RDW Standard Deviation 49.1 fL (36.4-46.3); Red Blood Count 4.16 M/uL (4.7-6.1); White Blood Count 9.85 K/uL (4.8-10.8)
[2019-12-08 06:06] LABS: INR 3.4 (0.9-1.1)
[2019-12-08 06:34] LABS: Albumin Globulin Ratio 0.8 (0.9-2); Albumin Level 3.7 gm/dl (3.4-5.0); BUN Creatinine Ratio 16.1 (10-20); Bilirubin,Total 0.7 mg/dl (0.2-1); Calcium 9.1 mg/dl (8.5-10.1); Creatinine Clr Calc Pharmacy 37.1 ml/min; Est GFR (Non-African American) 25.9; Globulin 4.5 gm/dl (2.5-4.0); Potassium 4.5 mmol/L (3.5-5.1); Total Protein 8.2 gm/dl (6.4-8.2)
[2019-12-08] MEDS: NITROGLYCERIN 2% OINTMENT 30GM TUBE EXT SCH ×3 (06:40→17:11)
[2019-12-08] MEDS: ALBUTEROL HFA 8 GM INHALER INH SCH ×4 (07:15→19:09)
[2019-12-08 07:45] LABS: Estimated Average Glucose 163 mg/dl; Hemoglobin A1C 7.3 % (4.5-5.6)
[2019-12-08] MEDS: FUROSEMIDE 60 MG in SYRINGE 0 ML IV SCH (07:53)
[2019-12-08] MEDS: INSULIN ASPART 100 UNITS/ML 3 ML PEN SC SCH ×3 (07:53→17:11)
[2019-12-08] MEDS: ASCORBIC ACID 500 MG TAB PO SCH (07:54)
[2019-12-08] MEDS: DOCUSATE SODIUM 100 MG CAP PO SCH (07:55)
[2019-12-08] MEDS ORDERED: AMIODARONE 200 MG TAB PO SCH (09:00)
[2019-12-08] MEDS ORDERED: lisinopriL 5 MG TAB PO SCH (09:00)
[2019-12-08] MEDS ORDERED: METOPROLOL SUCC 50MG EXT REL TAB PO SCH (09:00)
[2019-12-08] MEDS ORDERED: ATORVASTATIN 40 MG TAB PO SCH (09:00)
[2019-12-08] MEDS ORDERED: CYANOCOBALAMIN 500 MCG TABLET (VITAMIN B-12) PO SCH (09:00)
[2019-12-08] MEDS ORDERED: CLOPIDOGREL BISULFATE 75 MG TAB PO SCH (09:00)
[2019-12-08] MEDS ORDERED: ISOSORBIDE MONO EXTENDED REL 30 MG TABCR PO SCH (09:00)
--- NOTE | 2019-12-08 10:43 | Pharmacy Report ---
Glycemic Control Consultation - Date of Service December 08, 2019 - Scope Scope: Glycemic Pharmacist consulted for glycemic control and to write orders per [facility] inpatient glycemic control protocol. - Objective Weight: 139.2 kg Accuchecks BSG (last 24hrs): Laboratory Data (last 24hrs): 12/07/19 12/08/19 11:14 05:17 Potassium 4.6 4.5 Carbon Dioxide 23 30 Anion Gap 10.0 5.0 Creatinine 2.15 H 2.39 H Est Cr Clr Drug Dosing Not Reportable 37.1 HbA1c: Hemoglobin A1c 7.3 % (4.5-5.6) H 12/08/19 05:17 - Recent Pertinent Medications Outpatient Anti-diabetic Regimen: * Tresiba 36 units SQ qAM + Novolog 28 units SQ w/ Breakfast, 50 units SQ w/ lunch, 56 units SQ w/ supper, 7 units SQ at bedtime * A1c = 7.3% (12/08/2019) The patient is currently receiving: * Basal insulin: Lantus 30 units SQ x 1 * Correctional Insulin: Novolog Correction per scale ACHS Goal Range: Low 110 mg/dL - High 140 mg/dL Correction Factor: 20 mg/dL/unit * Prandial insulin: Per carb ratio of 1 unit per 5 grams CHO consumed Risk Factors for Insulin Resistance: * Diet: * T2DM/Heart Healthy/Low Na+ - Assessment & Plan Assessment & Plan: ASSESSMENT: * 74 yo M admitted secondary to chest pain. Pharmacy is consulted for inpatient glycemic management. * BSGs yesterday were uncontrolled: 231-201-174 mg/dL * Received 69 units of insulin yesterday: 30 basal + 39 bolus * Fasting BSG was 187 mg/dL this AM - uncontrolled * Likely due to basal deficiency - will give 30 units of Lantus with lunch today (plan to transition back to qAM tomorrow) * Lunchtime BSG was 207 mg/dL - uncontrolled * Tightened CF with lunch PLAN FOR INPATIENT GLYCEMIC CONTROL: * Basal insulin * Lantus 30 units SQ x 1 with lunch * Bolus insulin - tightened CF * NovoLog per scale ACHS or Q6hrs while NPO * Goal Range: Low 110 mg/dL - High 140 mg/dL * Correction Factor: 15 mg/dL/unit * Nutritional / Prandial insulin per carb ratio of 1 unit per 5 grams CHO consumed * Please note that the plan above was derived based on current level of insulin resistance and hospital stress. These recommendations are appropriate for inpatient admission only. Plan of care upon discharge will need to be reassessed to avoid potential outpatient hypo/hyperglycemia. Thank you.
--- NOTE | 2019-12-08 10:45 | Cardiology Progress Note ---
Date of Service December 08, 2019 Assessment & Plan (1) Cardiac arrest with ventricular fibrillation: (2) Acute on chronic HFrEF (heart failure with reduced ejection fraction): (3) Non-ST elevation (NSTEMI) myocardial infarction: (4) Syncope: (5) CKD (chronic kidney disease) stage 4, GFR 15-29 ml/min: (6) Supratherapeutic INR: (7) H/O mitral valve replacement: (8) H/O aortic valve replacement: (9) PAF (paroxysmal atrial fibrillation): ICD interrogation reviewed revealing ventricular fibrillation arrest with ICD shock x2. In the setting of NSTEMI and ADHF high risk cardiac catheterization recommended. Patient renal function appears stable at baseline (creatinine 2.2-2.7) although stage IV CKD noted. Volume status improved with IV diuretic therapy. Will place IV Lasix on hold at this time. INR remains supratherapeutic, although trending downward. Repeat 2D transthoracic echocardiogram performed 12/07/2019 demonstrates a decline in LV systolic function when compared to most recent study performed at OSH, however, systolic function is consistent with prior echocardiograms available for review in the [facility] medical record. After long discussion with the patient he is agreeable to transfer to [facility] and dental to consider high risk cardiac catheterization. Patient accepted by Dr. Ch for transfer to [facility]. Admission and Anticipated Discharge Date Admission Date: December 07, 2019 Subjective Patient seen and examined at the bedside. Fluid balance -2.6 L overnight. Telemetry demonstrates sinus rhythm with biventricular pacing. Mild chest soreness reported this morning. Denies pressure or tightness. No orthopnea or paroxysmal nocturnal dyspnea overnight. Lower extremity edema controlled. ICD interrogation reveals 2 episodes of ventricular fibrillation treated with ICD shock 12/07/19 in AM. Review of Systems Review of Systems: All systems reviewed & are unremarkable except as noted in HPI & below Physical Exam Constitutional: well nourished and + morbidly obese; no acute distress Respiratory: no respiratory distress and no labored breathing Auscultation: + diminished lung sounds (Right base) and + rales (Scant Rales at the right base); no rhonchi and no wheezes Cardiovascular: Rate/Rhythm: regular rate and regular rhythm Heart Sounds: normal S1, normal S2 and + murmur (2/6 systolic murmur heard best at the cardiac base.) Vessels: + JVD; + radial pulses abnormal Extremities: no edema Gastrointestinal (Abdomen): Inspection/Auscultation: abdomen normal to inspection and normal bowel sounds; abdomen not distended Percussion/Palpation: abdomen soft; abdomen nontender, no guarding and abdomen not rigid Skin: no rashes, warm and dry Neurologic: moves all extremities; no focal motor deficits Speech / Cognition: normal speech Motor/Sensory: no tremor Psychiatric: A+Ox3, euthymic affect Results & Data ([facility]) Vital Signs (Past 12 Hours) Vital Signs Temp Pulse Pulse Resp BP Pulse Ox 12/08/19 09:30 77 12/08/19 08:02 36.8 C 66 18 149/68 H 96 12/08/19 07:15 68 16 98 12/08/19 03:43 36.7 C 66 18 143/82 H 97 12/08/19 03:12 77 18 95 12/07/19 23:27 36.9 C 74 20 161/77 H 94 (1) Syncope Syncope type: unspecified Qualified Code(s): R55 - Syncope and collapse
--- NOTE | 2019-12-08 11:17 | Hospitalist Progress Note ---
Date of Service December 08, 2019 Assessment & Plan (1) Precordial chest pain: (2) Elevated troponin: (3) Acute on chronic HFrEF (heart failure with reduced ejection fraction): (4) CAD (coronary artery disease): Cardiac arrest with ventricular fibrillation: Acute on chronic HFrEF (heart failure with reduced ejection fraction): Non-ST elevation (NSTEMI) myocardial infarction: Syncope: H/O mitral valve replacement: H/O aortic valve replacement: as per admisson notes on 12/07/2019 "This is a 74-year-old male who has significant past medical history of Chronic HFrEF 2/2 to ischemic cardiomyopathy with AICD placement, CAD with history of CABG x1 SVG to RCA 2013, history of aortic valve replacement in 2005 with a redo in 2013 and subsequent mitral valve replacement both bioprosthetic in 2013, PCI to LAD 07/2018 secondary to abnormal stress test, insulin-dependent T2DM, HTN, HLD, LBBB, CKD stage IV who presents to ED secondary to acute onset chest pain 2 hours prior to arrival. In ED patient received IV morphine along with 1 inch nitroglycerin paste and 6.25 mg of IV promethazine. His chest pain subsequently completely resolved. Lab work revealed elevated troponin at 0.409, elevated proBNP at 1886, glucose 231, stable renal function at BUN 34, creatinine 2.15, supratherapeutic INR 4.0, H&H 11.8 and 37.2. EKG was paced without any ischemic changes. Chest x-ray consistent with Acute failure interstitial edema, small bilateral pleural effusions and bibasilar atelectasis. admit to PCU Continue IV diuresis Lasix 60mg IV BID strict I and O, daily weights, heart healthy low NA diet consult cardiology cycle troponins, ecg elevated trop possibly in setting of demand ischemia due to CHF - INR is supratherapeutic repeat echocardiogram (apparently done at [facility] 2 weeks ago will try to obtain records)" 12/08/2019: Patient in no acute distress on 12/08/2019 and is asymptomatic. However, cardiology Dr. Iglesias when reviewing the patient's ICD that patient had VF arrest and ICD shock x 2 before patient came to hospital. Dr. Iglesias called [facility] in [place] to transfer the patient there for high risk cardiac cath. The accepting doctor is Dr. Ch "ICD interrogation reviewed revealing ventricular fibrillation arrest with ICD shock x2. In the setting of NSTEMI and ADHF high risk cardiac catheterization recommended. Patient renal function appears stable at baseline (creatinine 2.2- 2.7) although stage IV CKD noted. Volume status improved with IV diuretic therapy. Will place IV Lasix on hold at this time. INR remains supratherapeutic, although trending downward. Repeat 2D transthoracic echocardiogram performed 12/07/2019 demonstrates a dec line in LV systolic function when compared to most recent study performed at OSH, however, systolic function is consistent with prior echocardiograms available for review in the [facility] medical record. After long discussion with the patient he is agreeable to transfer to [facility] and dental to consider high risk cardiac catheterization." (5) Supratherapeutic INR: PAF (paroxysmal atrial fibrillation) admission INR 4.0 and no signs of symptoms of bleeding, warfarin was held INR is 3.4 in the AM of 12/08/2019 (6) Diabetes mellitus, type 2: HbA1c is 7.3 on this admission on insulin (7) CKD (chronic kidney disease) stage 4, GFR 15-29 ml/min: baseline cr 2.2-2.7 admission bun/cr stable at 34 and 2.15 creatinine is 2.39 on 12/08/2019 (8) OBED on CPAP: CPAP at bedtime (9) Hypertension: on metoprolol, lisinopril, Imdur (10) Hyperlipidemia: on statin (11) Pernicious anemia: admission H&H stable at 11.8 and 37.2 Likely anemia of chronic disease component On vitamin B12 injections as outpatient (12) DVT prophylaxis: -warfarin held because of supratherapeutic INR Admission and Anticipated Discharge Date Admission Date: December 07, 2019 Subjective Patient in no acute distress on 12/08/2019 and is asymptomatic. However, cardiology Dr. Iglesias when reviewing the patient's ICD that patient had VF arrest and ICD shock x 2 before patient came to hospital. Dr. Iglesias called [facility] in [place] to transfer the patient there for high risk cardiac cath. The accepting doctor is Dr. Ch Patient is agreeable for the the transfer to [facility] Review of Systems Review of Systems: All systems reviewed & are unremarkable except as noted in Subjective Physical Exam Constitutional: + obese Eyes: PERRL, conjunctivae normal, anicteric sclerae EOM intact bilaterally ENMT: external ear and nose normal, oropharynx normal Neck: trachea midline, no thyromegaly normal visual inspection Respiratory: normal respiratory effort, lungs clear to auscultation Cardiovascular: Rate/Rhythm: regular rate Gastrointestinal (Abdomen): normal bowel sounds, soft, nontender, no hepatosplenomegaly Musculoskeletal: Head/Neck/Chest: normocephalic and head atraumatic Neurologic: PERRL, EOMI, accommodation nl, no face palsy, no dysarthria CN's II-XI intact bilaterally Psychiatric: A+Ox3, euthymic affect Results & Data Results & Data ([facility]) Vital Signs (Past 12 Hours) Vital Signs Temp Pulse Pulse Resp BP Pulse Ox 12/08/19 09:30 77 12/08/19 08:02 36.8 C 66 18 149/68 H 96 12/08/19 07:15 68 16 98 12/08/19 03:43 36.7 C 66 18 143/82 H 97 12/08/19 03:12 77 18 95 12/07/19 23:27 36.9 C 74 20 161/77 H 94
--- NOTE | 2019-12-08 11:21 | Discharge Summary ---
Date of Service December 08, 2019 Admission HPI Per Admitting Provider This is a 74-year-old male who has significant past medical history of Chronic HFrEF 2/2 to ischemic cardiomyopathy with AICD placement, CAD with history of CABG x1 SVG to RCA 2013, history of aortic valve replacement in 2005 with a redo in 2013 and subsequent mitral valve replacement both bioprosthetic in 2013, PCI to LAD 07/2018 secondary to abnormal stress test, insulin-dependent T2DM, HTN, HLD, LBBB, CKD stage IV who presents to ED secondary to acute onset chest pain 2 hours prior to arrival. Patient elicits he was masturbating when he developed substernal chest pain that radiated to his jaw. Pain was 6/10 and was associated with diaphoresis, shortness of breath and nausea. He took 1 nitro with minimal improvement in symptoms. He called EMS and subsequently had 3 additional sublingual nitroglycerin and received 4 baby aspirin. His pain did improve to 3/10 but did not resolve. He describes similar symptoms to angina equivalent in the past. He denies any lightheadedness, dizziness, fever, chi lls, syncope, palpitations, cough, emesis, abdominal pain, dysuria, increased urgency or frequency with urination, melena, hematochezia. Denies any lower extremity swelling, orthopnea or PND. Of significance patient was recently hospitalized at [facility] as a transfer from [facility] for CHF and NSTEMI. Spell stay was 11/23 to 11/25. He did undergo transthoracic echo at that time which revealed EF 55 to 60% per PCP visit. He was treated with IV Lasix during his hospital stay. His hospital course was otherwise uncomplicated and he was discharged to home. He had been doing well until 2 hours prior to arrival today. He admits to not monitoring his weights at home, but he feels his baseline weight is around 316. He has not been doing well with his diet although he has been trying to limit salt intake. He does not monitor his fluid intake. Has been compliant with his 80 mg of Lasix daily. In ED patient received IV morphine along with 1 inch nitroglycerin paste and 6.25 mg of IV promethazine. His chest pain subsequently completely resolved. Lab work revealed elevated troponin at 0.409, elevated proBNP at 1886, glucose 231, stable renal function at BUN 34, creatinine 2.15, supratherapeutic INR 4.0, H&H 11.8 and 37.2. EKG was paced without any ischemic changes. Chest x-ray consistent with Acute failure interstitial edema, small bilateral pleural effusions and bibasilar atelectasis. Principal Diagnosis Cardiac arrest with ventricular fibrillation: Acute on chronic HFrEF (heart failure with reduced ejection fraction): Non-ST elevation (NSTEMI) myocardial infarction: Syncope: CKD (chronic kidney disease) stage 4, GFR 15-29 ml/min: Supratherapeutic INR H/O mitral valve replacement H/O aortic valve replacement PAF (paroxysmal atrial fibrillation) Diabetes mellitus, type 2 OBED on CPAP: Pernicious anemia Discharge Exam Constitutional + obese Eyes PERRL, conjunctivae normal, anicteric sclerae EOM intact bilaterally ENMT external ear and nose normal, oropharynx normal Neck trachea midline, no thyromegaly normal visual inspection Respiratory normal respiratory effort, lungs clear to auscultation Cardiovascular Rate/Rhythm: regular rate Gastrointestinal (Abdomen) normal bowel sounds, soft, nontender, no hepatosplenomegaly Musculoskeletal Head/Neck/Chest: normocephalic and head atraumatic Neurologic PERRL, EOMI, accommodation nl, no face palsy, no dysarthria CN's II-XI intact bilaterally Psychiatric A+Ox3, euthymic affect Discharge Data Allergies Allergy/AdvReac Type Severity Reaction Status Date / Time heparin Allergy Unknown Unknown Unverified 12/07/19 11:10 Consultations 12/07/19 13:06 ED Decision to Admit Stat 12/07/19 13:22 Consult Cardiology Routine 12/07/19 15:31 Consult Case Management - Discharge Planning Routine Hospital Course (1) Precordial chest pain: (2) Elevated troponin: (3) Acute on chronic HFrEF (heart failure with reduced ejection fraction): (4) CAD (coronary artery disease): Cardiac arrest with ventricular fibrillation: Acute on chronic HFrEF (heart failure with reduced ejection fraction): Non-ST elevation (NSTEMI) myocardial infarction: Syncope: H/O mitral valve replacement: H/O aortic valve replacement: as per admisson notes on 12/07/2019 "This is a 74-year-old male who has significant past medical history of Chronic HFrEF 2/2 to ischemic cardiomyopathy with AICD placement, CAD with history of CABG x1 SVG to RCA 2013, history of aortic valve replacement in 2005 with a redo in 2013 and subsequent mitral valve replacement both bioprosthetic in 2013, PCI to LAD 07/2018 secondary to abnormal stress test, insulin-dependent T2DM, HTN, HLD, LBBB, CKD stage IV who presents to ED secondary to acute onset chest pain 2 hours prior to arrival. In ED patient received IV morphine along with 1 inch nitroglycerin paste and 6.25 mg of IV promethazine. His chest pain subsequently completely resolved. Lab work revealed elevated troponin at 0.409, elevated proBNP at 1886, glucose 231, stable renal function at BUN 34, creatinine 2.15, supratherapeutic INR 4.0, H&H 11.8 and 37.2. EKG was paced without any ischemic changes. Chest x-ray consistent with Acute failure interstitial edema, small bilateral pleural effusions and bibasilar atelectasis. admit to PCU Continue IV diuresis Lasix 60mg IV BID strict I and O, daily weights, heart healthy low NA diet consult cardiology cycle troponins, ecg elevated trop possibly in setting of demand ischemia due to CHF - INR is supratherapeutic repeat echocardiogram (apparently done at [facility] 2 weeks ago will try to obtain records)" 12/08/2019: Patient in no acute distress on 12/08/2019 and is asymptomatic. However, cardiology Dr. Iglesias when reviewing the patient's ICD that patient had VF arrest and ICD shock x 2 before patient came to hospital. Dr. Iglesias called [facility] in [place] to transfer the patient there for high risk cardiac cath. The accepting doctor is Dr. Ch "ICD interrogation reviewed revealing ventricular fibrillation arrest with ICD shock x2. In the setting of NSTEMI and ADHF high risk cardiac catheterization recommended. Patient renal function appears stable at baseline (creatinine 2.2- 2.7) although stage IV CKD noted. Volume status improved with IV diuretic therapy. Will place IV Lasix on hold at this time. INR remains supratherapeutic, although trending downward. Repeat 2D transthoracic echocardiogram performed 12/07/2019 demonstrates a decline in LV systolic function when compared to most recent study performed at OSH, however, systolic function is consistent with prior echocardiograms available for review in the [facility] medical record. After long discussion with the patient he is agreeable to transfer to [facility] and dental to consider high risk cardiac catheterization." (5) Supratherapeutic INR: PAF (paroxysmal atrial fibrillation) admission INR 4.0 and no signs of symptoms of bleeding, warfarin was held INR is 3.4 in the AM of 12/08/2019 (6) Diabetes mellitus, type 2: HbA1c is 7.3 on this admission on insulin (7) CKD (chronic kidney disease) stage 4, GFR 15-29 ml/min: baseline cr 2.2-2.7 admission bun/cr stable at 34 and 2.15 creatinine is 2.39 on 12/08/2019 (8) OBED on CPAP: CPAP at bedtime (9) Hypertension: on metoprolol, lisinopril, Imdur (10) Hyperlipidemia: on statin (11) Pernicious anemia: admission H&H stable at 11.8 and 37.2 Likely anemia of chronic disease component On vitamin B12 injections as outpatient (12) DVT prophylaxis: -warfarin held because of supratherapeutic INR Total Time Total Time Spent Total Time Spent (In Minutes): 40 minutes Total Time Includes: Examination of the Patient, Discharge Planning, Medication Reconciliation and Communication With Other Providers Discharge Plan Discharge Items Patient Disposition: Transfer Acute Care Hospital Reason For Visit: ATYPICAL CHEST PAIN, ACUTE/CHRONIC HFREF Discharge Diagnosis: Cardiac arrest with ventricular fibrillation: Acute on chronic HFrEF (heart failure with reduced ejection fraction): Non-ST elevation (NSTEMI) myocardial infarction: Syncope: CKD (chronic kidney disease) stage 4, GFR 15-29 ml/min: Supratherapeutic INR H/O mitral valve replacement H/O aortic valve replacement PAF (paroxysmal atrial fibrillation) Diabetes mellitus, type 2 OBED on CPAP: Pernicious anemia Condition on Discharge: Good Activity: Per Instructions section Non-emergency contact: Primary Care Provider and 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 However, cardiology Dr. Iglesias when reviewing the patient's ICD that patient had VF arrest and ICD shock x 2 before patient came to hospital. Dr. Iglesias called [facility] in [place] to transfer the patient there for high risk cardiac cath. The accepting doctor is Dr. Ch "ICD interrogation reviewed revealing ventricular fibrillation arrest with ICD shock x2. In the setting of NSTEMI and ADHF high risk cardiac catheterization recommended. Patient renal function appears stable at baseline (creatinine 2.2- 2.7) although stage IV CKD noted. Volume status improved with IV diuretic therapy. Will place IV Lasix on hold at this time. INR remains supratherapeutic, although trending downward. Repeat 2D transthoracic echocardiogram performed 12/07/2019 demonstrates a decline in LV systolic function when compared to most recent study performed at OSH, however, systolic function is consistent with prior echocardiograms available for review in the [facility] medical record. After long discussion with the patient he is agreeable to transfer to [facility] and dental to consider high risk cardiac catheterization." Pending Studies at Discharge: No Stand-Alone Forms: My [facility] Skilled Items Patient informed of condition?: Yes DNR: No Discharge Level of Care: Other Communicable Disease: No Discharge Prognosis: Stable Lines: None Urinary Catheter: No Medications and DC Order Prescriptions: Continued atorvastatin 40 mg tablet 40 mg PO QAM RF: 0 amiodarone 200 mg tablet 200 mg PO QAM RF: 0 metoprolol succinate 50 mg tablet extended release 24 hr 50 mg PO DAILY RF: 0 isosorbide mononitrate 30 mg tablet extended release 24 hr 30 mg PO QAM RF: 0 clopidogrel 75 mg tablet 75 mg PO QAM RF: 0 furosemide 80 mg tablet 80 mg PO QAM RF: 0 nitroglycerin 0.4 mg tablet, sublingual 0.4 mg sublingual DIRECTED PRN (Reason: Chest Pain) RF: 0 omeprazole 20 mg capsule,delayed release(DR/EC) 20 mg PO QAM PRN (Reason: upset stomach/heartburn) RF: 0 lisinopril 5 mg tablet 5 mg PO QAM RF: 0 albuterol sulfate 90 mcg/actuation HFA aerosol inhaler 2 puff INHALATION QID RF: 0 insulin aspart U-100 [Novolog Flexpen U-100 Insulin] 100 unit/mL (3 mL) insulin pen 0 unit SUBCUT As Directed RF: 0 Tresiba FlexTouch U-200 200 unit/mL (3 mL) insulin pen 36 unit SUBCUT QAM RF: 0 cyanocobalamin (vitamin B-12) [Vitamin B-12] 1,000 mcg Tablet 1,000 mcg PO QAM RF: 0 ascorbic acid (vitamin C) [Vitamin C] 500 mg Tablet,Chewable 500 mg PO BID RF: 0 docusate sodium 100 mg Capsule 100 mg PO BID RF: 0 metoprolol succinate 50 mg Tablet Extended Release 24 Hr 25 mg PO HS RF: 0 Discontinued amoxicillin 500 mg capsule 2,000 mg PO DIRECTED PRN (Reason: premedication for dental appt) RF: 0 warfarin 2.5 mg tablet 1.25 - 2.5 mg PO DAILY RF: 0 Discharge Orders: Discharge Order (Routine); Ordered 12/08/19 Ordered By: Corwin Rosenthal/Other Patient Handouts: Managing Type 2 Diabetes Admission Data Admit Date/Time: 12/07/19 13:22 Attending Provider: Corwin Chow Admit Provider: Corwin Paredes Primary Care Provider: Glenn Payne Other Providers: Corwin Paredes ; Bryan Iglesias
[2019-12-08] MEDS ORDERED: INSULIN GLARGINE SOLOSTAR 100 UNITS/ML 3 ML PEN SC ONE (11:30)
--- NOTE | 2019-12-08 20:03 | Electrocardiogram Report ---
Test Reason : Blood Pressure : / mmHG Vent. Rate : 068 BPM Atrial Rate : 068 BPM P-R Int : 188 ms QRS Dur : 144 ms QT Int : 476 ms P-R-T Axes : 041 268 044 degrees QTc Int : 506 ms Atrial-sensed ventricular-paced rhythm Abnormal ECG When compared with ECG of 07-DEC-2019 10:01, Vent. rate has decreased BY 9 BPM Confirmed by Chu Baxter ([id number]) on 12/08/2019 8:03:08 PM Referred By: REFERRED SELF Confirmed By:Chu Baxter
== END 2019-12-08 19:30 | disposition short-term general hospital (02) | DRG 280 ==
LOC: ED 09:51 → SUATTDRO 13:22 → 2S 13:22

== ENCOUNTER 2019-12-30 11:57 | Inpatient (IN) ==
--- NOTE | 2019-12-30 12:42 | Emergency Department Note ---
History of Present Illness General Chief Complaint: Chest Pain Time Seen by Provider: 12/30/19 12:28 Source: patient Mode of arrival: EMS Limitations: no limitations History of Present Illness Maximum Pain Intensity: 8 This is a 74-year-old male who presents to the ED with a chief complaint of chest pain and shortness of breath associated with a little nausea started at 10:30 AM. The patient also reported some sweating. He does report a new cough related to phlegm in his throat. The patient has a history of UT and CABG x1 as well as aortic valve replacement and type 2 diabetes. He describes the chest pain as a dull pain. The patient did take 2 nitroglycerin without improvement. He also states that EMS gave him 3 aspirin and transported him here. Home Medications Home Medications Medication Instructions Recorded Confirmed Type Tresiba FlexTouch U-200 36 unit SUBCUT QAM 12/07/19 12/30/19 History albuterol sulfate 2 puff INHALATION QID 12/07/19 12/30/19 History amiodarone 200 mg PO BID 12/07/19 12/30/19 History ascorbic acid (vitamin C) [Vitamin 500 mg PO BID 12/07/19 12/30/19 History C] clopidogrel 75 mg PO QAM 12/07/19 12/30/19 History cyanocobalamin (vitamin B-12) 1,000 mcg PO QAM 12/07/19 12/30/19 History [Vitamin B-12] docusate sodium 100 mg PO BID 12/07/19 12/30/19 History furosemide 80 mg PO QAM 12/07/19 12/30/19 History insulin aspart U-100 [Novolog 0 unit SUBCUT As Directed 12/07/19 12/30/19 History Flexpen U-100 Insulin] isosorbide mononitrate 30 mg PO QAM 12/07/19 12/30/19 History lisinopril 5 mg PO QAM 12/07/19 12/30/19 History nitroglycerin 0.4 mg SUBLINGUAL DIRECTED PRN 12/07/19 12/30/19 History omeprazole 20 mg PO QAM PRN 12/07/19 12/30/19 History atorvastatin 80 mg PO DAILY 12/30/19 12/30/19 History cyanocobalamin (vitamin B-12) 1,000 mcg IM MO 12/30/19 12/30/19 History [Vitamin B-12] ferrous sulfate 325 mg PO BID 12/30/19 12/30/19 History magnesium oxide 400 mg PO DAILY 12/30/19 12/30/19 History metoprolol succinate 100 mg PO DAILY 12/30/19 12/30/19 History potassium chloride [Klor-Con M10] 10 meq PO DAILY 12/30/19 12/30/19 History warfarin 2.5 mg PO UD 12/30/19 12/30/19 History Allergies Allergy/AdvReac Type Severity Reaction Status Date / Time heparin Allergy Unknown Unknown Unverified 12/30/19 13:19 Past Med/Surg History Medical History Arrhythmia Atrial fibrillation CAD (coronary artery disease) coronary artery bypass grafting x1 with reverse saphenous vein from aorta to right coronary artery via endoscopic saphenous vein harvesting. Chronic HFrEF (heart failure with reduced ejection fraction) Chronic kidney disease CKD (chronic kidney disease) stage 4, GFR 15-29 ml/min Diabetes mellitus, type 2 GERD (gastroesophageal reflux disease) Hyperlipidemia Hypertension OBED on CPAP PAF (paroxysmal atrial fibrillation) Pernicious anemia Surgical History H/O aortic valve replacement Status post bioprosthetic AVR in 2004 Aortic valve prosthesis stenosis and mitral regurgitation requiring redo sternotomy jul 21 2013 with redo AVR and subsequent MVR. H/O mitral valve replacement History of appendectomy History of cardiac cath History of colonoscopy History of coronary artery bypass graft x 1 coronary artery bypass grafting x1 with reverse saphenous vein from aorta to right coronary artery via endoscopic saphenous vein harvesting. History of heart artery stent History of heart valve replacement ICD (implantable cardioverter-defibrillator) in place Family History Father Heart disease UT @ age 64 Mother , age 34, stomach ca Cancer Social History Smoking Status: Never smoker Second Hand Exposure: No; Hx Alcohol Use: No Hx Substance Use: No Preferred Language: [place]ian Communication Ability: Effective Soap Press Feeder Required: No Beliefs That Will Affect Care: None Current Living Situation: Alone current occupation: retired Feels Safe at Home: Yes Assistive Devices: None Review of Systems A total of 10 systems reviewed and were otherwise negative Physical Exam Vital Signs Vital Signs - 24 hr 12/30/19 12:03 12/30/19 12:06 12/30/19 12:14 Temperature 36.8 C Temperature Source Oral Pulse Rate 88 96 H 88 Pulse Rate [Apical] Pulse Rate from SpO2 Sensor 88 96 H 88 Pulse Rhythm Respiratory Rate 27 H 25 H 24 Respiratory Effort / Characteristics Grunting Respiratory Pattern Blood Pressure 122/62 116/61 Blood Pressure [Left Arm] Blood Pressure Mean 76 70 Blood Pressure Mean [Left Arm] Blood Pressure Position Sitting Blood Pressure Position [Left Arm] Pulse Oximetry 97 97 96 Oxygen Delivery Method Room Air Fraction of Inspired Oxygen Sepsis Recent Fever Within 48 Hours No Sepsis New/Unexplained Change in Mental Status No Sepsis Action Taken by Nursing No Action Required 12/30/19 12:20 12/30/19 12:30 12/30/19 12:40 Temperature Temperature Source Pulse Rate 87 83 84 Pulse Rate [Apical] 82 Pulse Rate from SpO2 Sensor 87 84 84 Pulse Rhythm Respiratory Rate 16 26 H 30 H Respiratory Effort / Characteristics Grunting Short of Breath Respiratory Pattern Blood Pressure 121/60 Blood Pressure [Left Arm] 141/75 H Blood Pressure Mean 80 Blood Pressure Mean [Left Arm] 97 Blood Pressure Position Blood Pressure Position [Left Arm] Lying Pulse Oximetry 98 94 93 Oxygen Delivery Method Room Air Fraction of Inspired Oxygen Sepsis Recent Fever Within 48 Hours Sepsis New/Unexplained Change in Mental Status Sepsis Action Taken by Nursing 12/30/19 12:50 12/30/19 13:00 12/30/19 13:10 Temperature Temperature Source Pulse Rate Pulse Rate [Apical] 82 Pulse Rate from SpO2 Sensor 83 81 80 Pulse Rhythm Respiratory Rate 30 H Respiratory Effort / Characteristics Grunting Short of Breath Respiratory Pattern Blood Pressure Blood Pressure [Left Arm] 138/77 Blood Pressure Mean Blood Pressure Mean [Left Arm] 97 Blood Pressure Position Blood Pressure Position [Left Arm] Lying Pulse Oximetry 93 93 94 Oxygen Delivery Method Room Air Fraction of Inspired Oxygen Sepsis Recent Fever Within 48 Hours Sepsis New/Unexplained Change in Mental Status Sepsis Action Taken by Nursing 12/30/19 13:20 12/30/19 13:30 12/30/19 13:31 Temperature Temperature Source Pulse Rate 78 81 80 Pulse Rate [Apical] 86 Pulse Rate from SpO2 Sensor 81 80 81 Pulse Rhythm Regular Respiratory Rate 29 H 30 H Respiratory Effort / Characteristics Grunting Short of Breath Respiratory Pattern Blood Pressure 147/78 H Blood Pressure [Left Arm] 141/77 H Blood Pressure Mean 86 Blood Pressure Mean [Left Arm] 98 Blood Pressure Position Blood Pressure Position [Left Arm] Lying Pulse Oximetry 93 93 94 Oxygen Delivery Method Room Air Fraction of Inspired Oxygen Sepsis Recent Fever Within 48 Hours Sepsis New/Unexplained Change in Mental Status Sepsis Action Taken by Nursing 12/30/19 13:40 12/30/19 13:50 12/30/19 14:00 Temperature Temperature Source Pulse Rate 82 84 85 Pulse Rate [Apical] Pulse Rate from SpO2 Sensor 82 85 84 Pulse Rhythm Respiratory Rate 30 H 22 32 H Respiratory Effort / Characteristics Respiratory Pattern Blood Pressure Blood Pressure [Left Arm] Blood Pressure Mean Blood Pressure Mean [Left Arm] Blood Pressure Position Blood Pressure Position [Left Arm] Pulse Oximetry 94 93 Oxygen Delivery Method Fraction of Inspired Oxygen Sepsis Recent Fever Within 48 Hours Sepsis New/Unexplained Change in Mental Status Sepsis Action Taken by Nursing 12/30/19 14:01 12/30/19 14:02 12/30/19 14:10 Temperature Temperature Source Pulse Rate 88 85 86 Pulse Rate [Apical] Pulse Rate from SpO2 Sensor 85 84 86 Pulse Rhythm Respiratory Rate 33 H 33 H 33 H Respiratory Effort / Characteristics Respiratory Pattern Blood Pressure 148/91 H Blood Pressure [Left Arm] Blood Pressure Mean 97 Blood Pressure Mean [Left Arm] Blood Pressure Position Blood Pressure Position [Left Arm] Pulse Oximetry 94 95 94 Oxygen Delivery Method Fraction of Inspired Oxygen Sepsis Recent Fever Within 48 Hours Sepsis New/Unexplained Change in Mental Status Sepsis Action Taken by Nursing 12/30/19 14:20 12/30/19 14:32 12/30/19 14:34 Temperature Temperature Source Pulse Rate Pulse Rate [Apical] Pulse Rate from SpO2 Sensor 92 H 105 H 105 H Pulse Rhythm Respiratory Rate 24 24 Respiratory Effort / Characteristics Respiratory Pattern Blood Pressure 191/116 H Blood Pressure [Left Arm] Blood Pressure Mean 150 Blood Pressure Mean [Left Arm] Blood Pressure Position Blood Pressure Position [Left Arm] Pulse Oximetry 93 91 93 Oxygen Delivery Method Fraction of Inspired Oxygen Sepsis Recent Fever Within 48 Hours Sepsis New/Unexplained Change in Mental Status Sepsis Action Taken by Nursing 12/30/19 14:40 12/30/19 14:41 12/30/19 14:47 Temperature Temperature Source Pulse Rate 67 96 H 147 H Pulse Rate [Apical] Pulse Rate from SpO2 Sensor 102 H 92 H Pulse Rhythm Respiratory Rate 27 H 34 H 26 H Respiratory Effort / Characteristics Spontaneous Respiratory Pattern Tachypnea Blood Pressure 152/100 H Blood Pressure [Left Arm] Blood Pressure Mean 119 Blood Pressure Mean [Left Arm] Blood Pressure Position Blood Pressure Position [Left Arm] Pulse Oximetry 96 100 99 Oxygen Delivery Method Fraction of Inspired Oxygen 40 Sepsis Recent Fever Within 48 Hours Sepsis New/Unexplained Change in Mental Status Sepsis Action Taken by Nursing 12/30/19 14:50 Temperature Temperature Source Pulse Rate 91 H Pulse Rate [Apical] Pulse Rate from SpO2 Sensor 91 H Pulse Rhythm Respiratory Rate 26 H Respiratory Effort / Characteristics Respiratory Pattern Blood Pressure Blood Pressure [Left Arm] Blood Pressure Mean Blood Pressure Mean [Left Arm] Blood Pressure Position Blood Pressure Position [Left Arm] Pulse Oximetry 99 Oxygen Delivery Method Fraction of Inspired Oxygen Sepsis Recent Fever Within 48 Hours Sepsis New/Unexplained Change in Mental Status Sepsis Action Taken by Nursing CONSTITUTIONAL/VITAL SIGNS: Reviewed / noted above. GENERAL: Non-toxic in appearance. INTEGUMENTARY: Warm, dry, and [place]. HEAD: Normocephalic. EYES: without scleral icterus or trauma. ENT/OROPHARYNX: clear and moist. LYMPHADENOPATHY/NECK: Is supple without lymphadenopathy or meningismus. RESPIRATORY: Lungs reveal minimal scattered wheeze. He does have some upper airway rhonchi related to phlegm in his throat CARDIOVASCULAR: Regular rate and rhythm. GI/ABDOMEN: Soft and nontender. No organomegaly or pulsatile mass. No rebound or guarding. Normal bowel sounds. EXTREMITIES: Warm and well perfused. BACK: No CVA tenderness. NEUROLOGICAL: Intact without focal deficits. PSYCHIATRIC: normal affect. MUSCULOSKELETAL: Normally developed with good muscle tone. TRIAGE NURSING DOCUMENTATION REVIEWED. Course Administered Medications Nitroglycerin/Dextrose (Nitroglycerin/D5w 100 Mcg/Ml) 250 mls @ 3 mls/hr IV . Q24H [facility]; Protocol Stop: 01/29/20 14:44 Last Titration: 12/30/19 15:06 Dose: 10 mcg/min, 6 mls/hr Documented by: [id number] Admin: 12/30/19 14:48 Dose: 5 mcg/min, 3 mls/hr Documented by: [id number] Cosigned by: [id number] Discontinued Medications Furosemide (Furosemide 40 Mg/4 Ml Vial) 40 mg IV NOW STA Stop: 12/30/19 14:33 Last Admin: 12/30/19 14:43 Dose: 40 mg Documented by: [id number] Miscellaneous (Stat Iv Infusion Titration Per Protocol) 1 ea N/A NOW STA Stop: 12/30/19 14:36 Last Admin: 12/30/19 15:15 Dose: Not Given Documented by: [id number] Medical Decision Making Differential Diagnosis + pneumothorax, + unstable angina pectoris, + cardiac ischemia, + myocarditis, + aortic dissection, + pulmonary embolism, + pneumonia, + infections and + cholecystitis Medical Records Attestation: I reviewed the patient's medical records. Home Medications Current Medication List: was personally reviewed by me Laboratory Data Attestation: I reviewed the patient's lab results. Result diagrams: 12/30/19 13:25 12/30/19 13:25 Labs: Lab Results 12/30/19 12/30/19 12/30/19 Range/Units 13:25 13:25 13:25 WBC 11.72 H (4.8-10.8) K/uL RBC 3.89 L (4.7-6.1) M/uL Hgb 12.1 L (14.0-18.0) g/dL Hct 38.3 L (42-52) % MCV 98.5 (80-100) fL MCH 31.1 (25-34) pg MCHC 31.6 L (32-36) g/dL RDW Std Deviation 49.4 H (36.4-46.3) fL RDW Coeff of Rosio 13.9 (11.5-14.5) % Plt Count 182 (130-400) K/uL MPV 11.1 H (7.4-10.4) fL Immature Gran % (Auto) 0.4 % Neut % (Auto) 79.3 % Lymph % (Auto) 11.1 % Woodward % (Auto) 7.8 % Eos % (Auto) 1.1 % Baso % (Auto) 0.3 % Neut # (Auto) 9.29 H (1.4-6.5) K/uL Lymph # (Auto) 1.30 (1.2-3.4) K/uL Woodward # (Auto) 0.92 H (0.11-0.59) K/uL Eos # (Auto) 0.13 (0-0.5) K/uL Baso # (Auto) 0.03 (0-0.2) K/uL Immature Gran # (Auto) 0.05 H (0.00-0.02) K/uL PT 27.7 H (9.0-12.0) Seconds INR 2.8 H (0.9-1.1) APTT 40.7 H (21.0-31.0) Seconds PTT Ratio 1.5 VBG pH (7.36-7.41) VBG pCO2 (38-50) mmHg VBG pO2 mmHg VBG HCO3 mmol/L VBG O2 Saturation % VBG Base Excess mEq/L Barometric Pressure mm/Hg Sodium 138 (136-145) mmol/L Potassium 5.8 H (3.5-5.1) mmol/L Chloride 107 (98-107) mmol/L Carbon Dioxide 24 (21-32) mmol/L Anion Gap 7.0 (3-11) BUN 37 H (7-18) mg/dl Creatinine 2.57 H (0.6-1.4) mg/dl Est Cr Clr Drug Dosing 36.0 ml/min Est GFR ( Amer) 27.5 Est GFR (Non-Af Amer) 23.7 BUN/Creatinine Ratio 14.6 (10-20) Glucose 209 H (70-99) mg/dl Calcium 8.7 (8.5-10.1) mg/dl Total Bilirubin 0.5 (0.2-1) mg/dl AST 400 H (15-37) U/L ALT 53 (12-78) U/L Alkaline Phosphatase 110 (45-117) U/L Troponin I 91.300 H* (0-0.045) ng/ml NT-Pro-B Natriuret Pep 1945 H (0-900) pg/ml Total Protein 7.9 (6.4-8.2) gm/dl Albumin 3.6 (3.4-5.0) gm/dl Globulin 4.3 H (2.5-4.0) gm/dl Albumin/Globulin Ratio 0.8 L (0.9-2) 12/30/19 Range/Units 13:25 WBC (4.8-10.8) K/uL RBC (4.7-6.1) M/uL Hgb (14.0-18.0) g/dL Hct (42-52) % MCV (80-100) fL MCH (25-34) pg MCHC (32-36) g/dL RDW Std Deviation (36.4-46.3) fL RDW Coeff of Rosio (11.5-14.5) % Plt Count (130-400) K/uL MPV (7.4-10.4) fL Immature Gran % (Auto) % Neut % (Auto) % Lymph % (Auto) % Woodward % (Auto) % Eos % (Auto) % Baso % (Auto) % Neut # (Auto) (1.4-6.5) K/uL Lymph # (Auto) (1.2-3.4) K/uL Woodward # (Auto) (0.11-0.59) K/uL Eos # (Auto) (0-0.5) K/uL Baso # (Auto) (0-0.2) K/uL Immature Gran # (Auto) (0.00-0.02) K/uL PT (9.0-12.0) Seconds INR (0.9-1.1) APTT (21.0-31.0) Seconds PTT Ratio VBG pH 7.35 L (7.36-7.41) VBG pCO2 41 (38-50) mmHg VBG pO2 37 mmHg VBG HCO3 22 mmol/L VBG O2 Saturation 65.9 % VBG Base Excess -3.0 mEq/L Barometric Pressure 735.6 mm/Hg Sodium (136-145) mmol/L Potassium (3.5-5.1) mmol/L Chloride (98-107) mmol/L Carbon Dioxide (21-32) mmol/L Anion Gap (3-11) BUN (7-18) mg/dl Creatinine (0.6-1.4) mg/dl Est Cr Clr Drug Dosing ml/min Est GFR ( Amer) Est GFR (Non-Af Amer) BUN/Creatinine Ratio (10-20) Glucose (70-99) mg/dl Calcium (8.5-10.1) mg/dl Total Bilirubin (0.2-1) mg/dl AST (15-37) U/L ALT (12-78) U/L Alkaline Phosphatase (45-117) U/L Troponin I (0-0.045) ng/ml NT-Pro-B Natriuret Pep (0-900) pg/ml Total Protein (6.4-8.2) gm/dl Albumin (3.4-5.0) gm/dl Globulin (2.5-4.0) gm/dl Albumin/Globulin Ratio (0.9-2) Imaging Data Chest x-ray: Radiologist's impression: Chest x-ray: IMPRESSION: 1. Cardiomegaly with pulmonary edema. 2. Small right and trace left pleural effusions. 3. Right lung base opacities suggest atelectasis versus pneumonitis. MDM Narrative This is a 74-year-old male who presents to the ED with a chief complaint of chest pain and shortness of breath associated with a little nausea started at 10:30 AM. The patient also reported some sweating. He does report a new cough related to phlegm in his throat. The patient has a history of UT and CABG x1 as well as aortic valve replacement and type 2 diabetes. He describes the chest pain as a dull pain. The patient did take 2 nitroglycerin without improvement. He also states that EMS gave him 3 aspirin and transported him here.The patient's exam reveals some upper airway rhonchi. His vital signs reveal tachypnea the patient's twelve-lead EKG. This does appear different than a previous EKG dated December 07, 2019. His chest x-ray is suggestive of congestive heart failure and pulmonary edema. His creatinine is 2.57. This appears to be baseline for the patient. The patient was given IV Lasix, IV nitroglycerin as well as placed on BiPAP. He initially was on 3 L saturating in the low to mid 90s. His breathing seems to be getting slightly worse and therefore the BiPAP was used. I did speak with Dr. Harmon about the patient. He will see the patient in the ED. I will speak with the hospitalist about the pat ie as well. Impression & Plan Acute CHF (congestive heart failure), Acute UT Critical Care Time Critical Care Time: Yes Total Critical Care Time: 30 I have personally spent 30 minutes of critical care time in the direct management of this patient. This includes bedside care, interpretation of diagnostic studies, and testing, discussion with consultants, patient, and family members, and other required patient management activities. This 30 breanna alvin is in excess of all separately billable procedures. Discharge Plan Visit Data Chief Complaint: Chest Pain ED Provider: Lauro Florentino Discharge Problem: Acute CHF (congestive heart failure), Acute UT Patient Disposition: Being Evaluated by Hospitalist Forms Stand Alone Forms: My [facility] Prescriptions Prescriptions: No Action amiodarone 200 mg tablet 200 mg PO BID RF: 0 isosorbide mononitrate 30 mg tablet extended release 24 hr 30 mg PO QAM RF: 0 clopidogrel 75 mg tablet 75 mg PO QAM RF: 0 furosemide 80 mg tablet 80 mg PO QAM RF: 0 nitroglycerin 0.4 mg tablet, sublingual 0.4 mg sublingual DIRECTED PRN (Reason: Chest Pain) RF: 0 omeprazole 20 mg capsule,delayed release(DR/EC) 20 mg PO QAM PRN (Reason: upset stomach/heartburn) RF: 0 lisinopril 5 mg tablet 5 mg PO QAM RF: 0 albuterol sulfate 90 mcg/actuation HFA aerosol inhaler 2 puff INHALATION QID RF: 0 insulin aspart U-100 [Novolog Flexpen U-100 Insulin] 100 unit/mL (3 mL) insulin pen 0 unit SUBCUT As Directed RF: 0 Tresiba FlexTouch U-200 200 unit/mL (3 mL) insulin pen 36 unit SUBCUT QAM RF: 0 cyanocobalamin (vitamin B-12) [Vitamin B-12] 1,000 mcg Tablet 1,000 mcg PO QAM RF: 0 ascorbic acid (vitamin C) [Vitamin C] 500 mg Tablet,Chewable 500 mg PO BID RF: 0 docusate sodium 100 mg Capsule 100 mg PO BID RF: 0 atorvastatin 80 mg tablet 80 mg PO DAILY RF: 0 metoprolol succinate 100 mg tablet extended release 24 hr 100 mg PO DAILY RF: 0 warfarin 2.5 mg tablet 2.5 mg PO UD RF: 0 cyanocobalamin (vitamin B-12) [Vitamin B-12] 1,000 mcg/mL Solution 1,000 mcg IM MO RF: 0 ferrous sulfate 325 mg (65 mg iron) Tablet 325 mg PO BID RF: 0 potassium chloride [Klor-Con M10] 10 mEq Tablet,Er Particles/Crystals 10 meq PO DAILY RF: 0 magnesium oxide 400 mg magnesium Tablet 400 mg PO DAILY RF: 0 Referrals Referrals: Glenn Payne PA-C [Primary Care Provider] - Discharge Problem: Acute CHF (congestive heart failure) Qualifiers: Heart failure type: unspecified Qualified Code(s): I50.9 - Heart failure, unspecified Acute UT Qualifiers: Myocardial infarction type: unspecified Involved coronary artery: unspecified coronary artery Qualified Code(s): I21.9 - Acute myocardial infarction, unspecified
--- NOTE | 2019-12-30 13:01 | XRay Report ---
XR chest 1V portable HISTORY: 74 years-old Male Dyspnea acute shortness of breath COMPARISON: Chest radiograph 12/07/2019 TECHNIQUE: Portable AP view of the chest FINDINGS: Cardiac silhouette is enlarged, unchanged. Prior median sternotomy. Left subclavian pacer/AICD. Cardi ac valvular prosthesis. No pneumothorax. Small right pleural effusion is unchanged. Probable trace le ft pleural effusion. Right basilar opacities. Coronary vascular congestion with interstitial coarseni ng. Degenerative changes of the shoulders and spine. Healed remote fracture deformity of the right cl avicle. IMPRESSION: 1. Cardiomegaly with pulmonary edema. 2. Small right and trace left pleural effusions. 3. Right lung base opacities suggest atelectasis versus pneumonitis. ACT 112: Negative or not required by law. The above report was generated using voice recognition software. It may contain grammatical, syntax o r spelling errors. Electronically signed by: Lisandro Dela Cruz M.D. 12/30/2019 12:59 PM
[2019-12-30 13:40] LABS: Basophils # (auto) 0.03 K/uL (0-0.2); Basophils % (auto) 0.3 %; Eosinophils # (auto) 0.13 K/uL (0-0.5); Eosinophils % (auto) 1.1 %; Hematocrit (blood only) 38.3 % (42-52); Hemoglobin 12.1 g/dL (14.0-18.0); Immature Granulocytes # (auto) 0.05 K/uL (0.00-0.02); Immature Granulocytes % (auto) 0.4 %; Lymphocytes % (auto) 11.1 %; Mean Corpuscular Hemoglobin 31.1 pg (25-34); Mean Corpuscular Hgb Conc 31.6 g/dL (32-36); Mean Corpuscular Volume 98.5 fL (80-100); Mean Platelet Volume 11.1 fL (7.4-10.4); Monocytes # (auto) 0.92 K/uL (0.11-0.59); Monocytes % (auto) 7.8 %; Neutrophils # (auto) 9.29 K/uL (1.4-6.5); Neutrophils % (auto) 79.3 %; Platelet Count 182 K/uL (130-400); RDW Coefficient of Variation 13.9 % (11.5-14.5); RDW Standard Deviation 49.4 fL (36.4-46.3); Red Blood Count 3.89 M/uL (4.7-6.1); White Blood Count 11.72 K/uL (4.8-10.8)
[2019-12-30 13:44] LABS: Oxygen Saturation VBG 65.9 %; pH VBG 7.35 (7.36-7.41)
[2019-12-30 13:56] LABS: Albumin Level 3.6 gm/dl (3.4-5.0); BUN Creatinine Ratio 14.6 (10-20); Calcium 8.7 mg/dl (8.5-10.1); Est GFR (African American) 27.5; Est GFR (Non-African American) 23.7; Potassium 5.8 mmol/L (3.5-5.1)
[2019-12-30 13:59] LABS: INR 2.8 (0.9-1.1); Partial Thromboplastin Ratio 1.5; Partial Thromboplastin Time 40.7 Seconds (21.0-31.0); Prothrombin Time 27.7 Seconds (9.0-12.0)
[2019-12-30 14:18] LABS: Albumin Globulin Ratio 0.8 (0.9-2); Bilirubin,Total 0.5 mg/dl (0.2-1); Globulin 4.3 gm/dl (2.5-4.0); Total Protein 7.9 gm/dl (6.4-8.2); Troponin I 91.3 ng/ml (0-0.045)
[2019-12-30] MEDS ORDERED: FUROSEMIDE 40 MG/4 ML VIAL IV STA (14:32)
[2019-12-30] MEDS ORDERED: STAT IV Infusion **Titration per Protocol STA (14:35)
[2019-12-30] MEDS ORDERED: NITROGLYCERIN/D5W 100MCG/ML 250 ML IV SCH (14:45)
--- NOTE | 2019-12-30 15:10 | Cardiology Consultation ---
Date of Consultation December 30, 2019 Assessment & Plan (1) Acute CHF (congestive heart failure): (2) Acute DC: (3) Elevated troponin I level: (4) Acute on chronic HFrEF (heart failure with reduced ejection fraction): (5) CKD (chronic kidney disease) stage 4, GFR 15-29 ml/min: (6) PAF (paroxysmal atrial fibrillation): (7) H/O mitral valve replacement: (8) H/O aortic valve replacement: (9) History of coronary artery bypass graft x 1: This patient has a complex history as outlined. He presented recently after a syncopal event and was noted to have had a ventricular fibrillation arrest rescued by his ICD. He was transferred to [facility] due to his complex heart disease and stage IV kidney disease for cardiac catheterization. He was noted to have nonobstructive coronary disease and his solitary bypass graft was patent. He was started on amiodarone and discharged home. He now presents with congestive heart failure and and chest pain which started sometime this morning. His cardiac troponins have already elevated to 90 which I believe is a combination of both a late presentation and his chronic kidney disease. He is currently hemodynamically stable and found improvement with BiPAP and IV nitroglycerin. He now describes his chest pain as 1/10. I th ink at this time we should continue with medical therapy to improve his congestive heart failure and unless he becomes medically unstable, hold off on an invasive route. I think he is best served with admission to the ICU. If his clinical course changes, then he is also best served with a transfer back to [facility] for evaluation and possible repeat cardiac catheterization. History of Present Illness History of Present Illness This is a very complex cardiac patient, in brief, he is a 74-year-old male with the previous history as listed below but more recently he had a syncopal event while at home and was admitted to the hospital. He had his ICD interrogated that showed an episode of ventricular fibrillation with 2 therapies delivered. The patient has chronic kidney disease and with his complex history was transferred to [facility] where he underwent a cardiac catheterization that showed nonobstructive coronary artery disease and his previous single bypass graft to be patent. He was started on amiodarone and discharged. He was seen in follow-up on December 15 by Bryson Michelle and at that time he was clinically stable. He now presents with chest discomfort that started sometime early this morning and shortness of breath. He is noted to be in congestive heart failure by chest x-ray. His cardiac troponins have already elevated to 90 and suggest a late presentation. The patient's EKG is a paced rhythm unreliable for acute coronary syndrome. He is currently on BiPAP and received IV diuretics as well as IV nitroglycerin. His chest pain is currently at a 1 out of 10. Problem List: 1.Bicuspid aortic valve, severe aortic valve stenosis 2.Status post bioprosthetic AVR in 2004. 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 5.Postoperative course complicated by a return to the operating room for bleeding which required repair of a hole at the aortic valve suture line, paroxysmal atrial fibrillation postoperatively, and a left bundle branch block 6.Moderate LV systolic dysfunction, NYHA Class III congestive heart failure 7.Status post August 31, 2014 bivent[address] ICD implantation by Dr. Sorensen. 8.Paroxysmal atrial fibrillation and flutter. [id number] score is 5 points. 9.Chronic coumadin anticoagulation. 10.Ventricular fibrillation leading to ICD discharges on March 30, 2018, May 21, 2018 and November 2019 11.Chronic renal insufficiency 12.Obstructive sleep apnea 13.Pernicious anemia 14.Hypertension 15.Dyslipidemia 16.Obesity 17.OBED, CPAP therapy 18.Appendectomy Allergies Allergy/AdvReac Type Severity Reaction Status Date / Time heparin Allergy Unknown Unknown Unverified 12/30/19 13:19 Home Medications Home Medications Medication Instructions Recorded Confirmed Type Tresiba FlexTouch U-200 36 unit SUBCUT QAM 12/07/19 12/30/19 History albuterol sulfate 2 puff INHALATION QID 12/07/19 12/30/19 History amiodarone 200 mg PO BID 12/07/19 12/30/19 History ascorbic acid (vitamin C) [Vitamin 500 mg PO BID 12/07/19 12/30/19 History C] clopidogrel 75 mg PO QAM 12/07/19 12/30/19 History cyanocobalamin (vitamin B-12) 1,000 mcg PO QAM 12/07/19 12/30/19 History [Vitamin B-12] docusate sodium 100 mg PO BID 12/07/19 12/30/19 History furosemide 80 mg PO QAM 12/07/19 12/30/19 History insulin aspart U-100 [Novolog 0 unit SUBCUT As Directed 12/07/19 12/30/19 History Flexpen U-100 Insulin] isosorbide mononitrate 30 mg PO QAM 12/07/19 12/30/19 History lisinopril 5 mg PO QAM 12/07/19 12/30/19 History nitroglycerin 0.4 mg SUBLINGUAL DIRECTED PRN 12/07/19 12/30/19 History omeprazole 20 mg PO QAM PRN 12/07/19 12/30/19 History atorvastatin 80 mg PO DAILY 12/30/19 12/30/19 History cyanocobalamin (vitamin B-12) 1,000 mcg IM MO 12/30/19 12/30/19 History [Vitamin B-12] ferrous sulfate 325 mg PO BID 12/30/19 12/30/19 History magnesium oxide 400 mg PO DAILY 12/30/19 12/30/19 History metoprolol succinate 100 mg PO DAILY 12/30/19 12/30/19 History potassium chloride [Klor-Con M10] 10 meq PO DAILY 12/30/19 12/30/19 History warfarin 2.5 mg PO UD 12/30/19 12/30/19 History Patient History Medical History Arrhythmia Atrial fibrillation CAD (coronary artery disease) coronary artery bypass grafting x1 with reverse saphenous vein from aorta to right coronary artery via endoscopic saphenous vein harvesting. Chronic HFrEF (heart failure with reduced ejection fraction) Chronic kidney disease CKD (chronic kidney disease) stage 4, GFR 15-29 ml/min Diabetes mellitus, type 2 GERD (gastroesophageal reflux disease) Hyperlipidemia Hypertension OBED on CPAP PAF (paroxysmal atrial fibrillation) Pernicious anemia Surgical History H/O aortic valve replacement Status post bioprosthetic AVR in 2004 Aortic valve prosthesis stenosis and mitral regurgitation requiring redo sternotomy jul 21 2013 with redo AVR and subsequent MVR. H/O mitral valve replacement History of appendectomy History of cardiac cath History of colonoscopy History of coronary artery bypass graft x 1 coronary artery bypass grafting x1 with reverse saphenous vein from aorta to right coronary artery via endoscopic saphenous vein harvesting. History of heart artery stent History of heart valve replacement ICD (implantable cardioverter-defibrillator) in place Family History Father Heart disease DC @ age 64 Mother , age 34, stomach ca Cancer Social History Smoking Status: Never smoker Second Hand Exposure: No; Hx Alcohol Use: No Hx Substance Use: No Preferred Language: Citizen Of [place] Communication Ability: Effective Section Hand Helper Required: No Beliefs That Will Affect Care: None Current Living Situation: Alone current occupation: retired Feels Safe at Home: Yes Assistive Devices: None Review of Systems Review of Systems: Unobtainable due to endotracheal tube Physical Exam Physical Exam: General: no acute distress and stated age Head: normocephalic, no masses, lesions, tenderness or abnormalities Eyes: conjunctiva are pink and non-injected, sclera clear Neck: supple, no adenopathy, no bruits, normal jugular venous pulse, no hepatojugular reflux Chest: normal shape and normal respiratory effort Lungs: Rales and rhonchi throughout Cardiac Exam: - regular rate & rhythm, no murmurs or rubs - normal S1, normal S2, summation gallop is present. Pulses: 2(+) throughout Abdomen: abdomen soft, non-tender, no abnormal masses and no hepatosplenomegaly Musculoskeletal: no gait disturbance, no joint inflammation, no deforming arthritis Extremities: no edema and no cyanosis Neuro: grossly normal exam Results & Data ([facility]) Vital Signs (Past 12 Hours) Vital Signs Temp Pulse Pulse Resp BP BP Pulse Ox 12/30/19 14:50 91 H 26 H 99 12/30/19 14:47 147 H 26 H 152/100 H 99 12/30/19 14:41 96 H 34 H 100 12/30/19 14:40 67 27 H 96 12/30/19 14:34 24 191/116 H 93 12/30/19 14:32 24 91 12/30/19 14:20 93 12/30/19 14:10 86 33 H 94 12/30/19 14:02 85 33 H 95 12/30/19 14:01 88 33 H 148/91 H 94 12/30/19 14:00 85 32 H 12/30/19 13:50 84 22 93 12/30/19 13:40 82 30 H 94 12/30/19 13:31 80 30 H 147/78 H 94 12/30/19 13:30 81 86 29 H 141/77 H 93 12/30/19 13:20 78 93 12/30/19 13:10 94 12/30/19 13:00 82 30 H 138/77 93 12/30/19 12:50 93 12/30/19 12:40 84 30 H 93 12/30/19 12:30 83 82 26 H 121/60 141/75 H 94 12/30/19 12:20 87 16 98 12/30/19 12:14 88 24 96 12/30/19 12:06 96 H 25 H 116/61 97 12/30/19 12:03 36.8 C 88 27 H 122/62 97 Laboratory Results Laboratory Results - last 24 hr 12/30/19 12/30/19 12/30/19 13:25 13:25 13:25 WBC 11.72 H RBC 3.89 L Hgb 12.1 L Hct 38.3 L MCV 98.5 MCH 31.1 MCHC 31.6 L RDW Std Deviation 49.4 H RDW Coeff of Rosio 13.9 Plt Count 182 MPV 11.1 H Immature Gran % (Auto) 0.4 Neut % (Auto) 79.3 Lymph % (Auto) 11.1 [place] % (Auto) 7.8 Eos % (Auto) 1.1 Baso % (Auto) 0.3 Neut # (Auto) 9.29 H Lymph # (Auto) 1.30 [place] # (Auto) 0.92 H Eos # (Auto) 0.13 Baso # (Auto) 0.03 Immature Gran # (Auto) 0.05 H PT 27.7 H INR 2.8 H APTT 40.7 H PTT Ratio 1.5 VBG pH VBG pCO2 VBG pO2 VBG HCO3 VBG O2 Saturation VBG Base Excess Barometric Pressure Sodium 138 Potassium 5.8 H Chloride 107 Carbon Dioxide 24 Anion Gap 7.0 BUN 37 H Creatinine 2.57 H Est Cr Clr Drug Dosing 36.0 Est GFR ( Amer) 27.5 Est GFR (Non-Af Amer) 23.7 BUN/Creatinine Ratio 14.6 Glucose 209 H Calcium 8.7 Total Bilirubin 0.5 AST 400 H ALT 53 Alkaline Phosphatase 110 Troponin I 91.300 H* NT-Pro-B Natriuret Pep 1945 H Total Protein 7.9 Albumin 3.6 Globulin 4.3 H Albumin/Globulin Ratio 0.8 L 12/30/19 13:25 WBC RBC Hgb Hct MCV MCH MCHC RDW Std Deviation RDW Coeff of Rosio Plt Count MPV Immature Gran % (Auto) Neut % (Auto) Lymph % (Auto) [place] % (Auto) Eos % (Auto) Baso % (Auto) Neut # (Auto) Lymph # (Auto) [place] # (Auto) Eos # (Auto) Baso # (Auto) Immature Gran # (Auto) PT INR APTT PTT Ratio VBG pH 7.35 L VBG pCO2 41 VBG pO2 37 VBG HCO3 22 VBG O2 Saturation 65.9 VBG Base Excess -3.0 Barometric Pressure 735.6 Sodium Potassium Chloride Carbon Dioxide Anion Gap BUN Creatinine Est Cr Clr Drug Dosing Est GFR ( Amer) Est GFR (Non-Af Amer) BUN/Creatinine Ratio Glucose Calcium Total Bilirubin AST ALT Alkaline Phosphatase Troponin I NT-Pro-B Natriuret Pep Total Protein Albumin Globulin Albumin/Globulin Ratio Medications Administered Current Inpatient Medications Nitroglycerin/Dextrose (Nitroglycerin/D5w 100 Mcg/Ml) 250 mls @ 3 mls/hr IV .Q24H [facility]; Protocol Stop: 01/29/20 14:44 Last Titration: 12/30/19 15:06 Dose: 10 mcg/min, 6 mls/hr Documented by: (1) Acute DC Involved coronary artery: unspecified coronary artery Myocardial infarction type: unspecified Qualified Code(s): I21.9 - Acute myocardial infarction, unspecified (2) Acute CHF (congestive heart failure) Heart failure type: unspecified Qualified Code(s): I50.9 - Heart failure, unspecified
--- NOTE | 2019-12-30 16:27 | Critical Care Consultation ---
Date of Consultation December 30, 2019 Assessment & Plan (1) Acute on chronic HFrEF (heart failure with reduced ejection fraction): Reason Critically Ill: 74M with complex medical history presenting with chest pain, SOB, elevated troponin, and signs concerning for acute CHF exacer bation. NEURO: CAM ICU: Negative CARDIAC: Acute on Chronic HFrEF -Last echo on 12/07/19 with EF 35-40% and moderate to severely reduced L ventricular systolic function. -Patient examines with B/L LE edema and crackles in lungs b/l, no JVD at this time. -CXR appearing fluid overloaded with patchy infiltrate on R ?pulmonary edema vs PNA vs atelectasis -Troponin elevated 91 and Pro-BNP 194 -EKG with ventricular paced rhythm -Given 40 IV lasix in the ED -Will continue diuresis as tolerable with IV lasix -Echo pending NSTEMI -Troponin elevated 91, continue to trend -Had 2 nitro at home, currently on nitro gtt and chest pain free -Cardiac cath 12/09/19 nonobstructive CAD and patent bypass graft and stents -No heparin gtt at this time, will continue with Warfarin -If patient should become medically unstable then consider transfer back to [facility] [place] for cardiac catheterization -Continue Lipitor -Continue Metoprolol Succinate -Continue Plavix -Continue nitro gtt -Will attempt aggressive blood pressure control with goal 125/75 -Hydralazine as needed PRN History of Ventricular Fibrillation -Admitted 1 month ago after discharge of ICD x2 for VF arrest and syncopal episode -At that time transferred to [facility] [place] for cardiac cath and found to have nonobstructive CAD and patent solitary bypass graft and started on amiodarone -Continue Amiodarone 200mg BID -Continue to monitor on telemetry -Pacemaker interrogation Paroxysmal Afib, Hx Aortic and Mitral valve replacement -Continue Warfarin 1.25mg , , -Continue Warfarin 2.5mg , , , -Patient therapeutic at INR 2.8 RESPIRATORY: Respiratory Distress -While saturating in the low 90's in the ED, started on Bipap -Patient uses CPAP at home -Will transition to CPAP at this time OBED -CPAP ?PNA -Low suspicion though R sided patchy infiltrates -Will send for biofire and pro calcitonin -Hold on antibiotics at this time GI: -HH diet RENAL/LYTES: CKD stage 4 -Creatinine baseline ~2-2.4 -Continue to monitor while diuresing Hyperkalemia -Elevated at 5.8 -will hold lisinopril at this time -Suspect improvement with aggressive diuresis : -Strict I/O's ENDO: Diabetes Mellitus -ICU hyperglycemia protocol HEME: -No concerns at this time ID: -White count slightly elevated -Low suspicion for PNA, though will run biofire and pro calcitonin -Hold Abx therapy at this time LINES/IV ACCESS: L US guided, R peripheral CODE STATUS: Full DVT PROPHYLAXIS: Therapeutic Warfarin DISPO: ICU Thank you for allowing us to participate in the care of this patient. Please refer to my attending physician's documentation for any further recommendations. (2) Hypertension: (3) Hyperlipidemia: (4) Diabetes mellitus, type 2: (5) OBED on CPAP: (6) H/O mitral valve replacement: (7) H/O aortic valve replacement: (8) CKD (chronic kidney disease) stage 4, GFR 15-29 ml/min: (9) History of coronary artery bypass graft x 1: (10) CAD (coronary artery disease): Supervising Physician Co-Signing Physician Notes Patient seen and examined. EMR reviewed. Films were independently reviewed. Discussed with family practice resident as well as with consulting measurement operator. 74 with complex medical history including reduced ejection fraction, coronary disease, and arrhythmias. Recently admitted for discharge of his AICD. He underwent cardiac cath at [facility] and reportedly had nonobstructive coronary disease that time. He presented to the emergency room with chest discomfort was found to have an elevated troponin. He was placed on nitro. He appears to be in heart failure. Lasix was also ordered. Due to his complexity, cardiology felt he was best served by admission to the ICU. Will plan on continued afterload reduction and diuretics as tolerated. If the patient's kidney function should decline with diuretics would have a low threshold for involving nephrology in his care and consideration for renal replacement therapy. We will check a bio fire as well as pro calcitonin given his elevated white count although certainly his non-ST elevation myocardial infarction could cause the leukocytosis. We will hold on antibiotics pending th at [facility]. Amiodarone could also potentially contribute to the patient's underlying lung disease however risk-benefit ratio appears to favor continuing that medication for now. Pulmonary hemorrhage would also be on the differential especially given his elevated INR however would prefer to see how he does with diuretics rather than pursuing invasive evaluation such as bronchoscopy at this point time. The patient is critically ill with significant possibility of clinical deterioration. We will see how he responds to conservative therapy. Agree with cardiology that if the patient's condition should deteriorate from a cardiac perspective, would have a low threshold for transferring him back to [facility] for additional evaluation. History of Present Illness Reason for Consultation: chest pain History of Present Illness Patient is a 74 year old male with PMHx CAD s/p bypass graft x1, HFrEF EF 35- 40%, s/p AICD, HTN, HLD, OBED on CPAP, CKD stage 4, h/o mitral and aortic valve replacement, DM2, V fib who presented to the ED secondary to chest pain, SOB, and diaphoresis. Patient notes that he was driving around 10:30AM when he experienced sudden onset of chest pain, SOB, diaphoresis, and nausea. He stated that he took 2 nitro at home which did not improve his symptoms. On transport via EMS he was given 4 ASA. Upon arrival to the ED patient was found to have symptoms consistent with an acute exacerbation of congestive heart failure. His cardiac troponins were elevated to 90 and his CXR demonstrated pulmonary edema. He continued to have slight chest pain and hypertension as high as 191/116 and was started on a nitroglycerin drip. He was also given 40mg of lasix. While his O2 saturations remained in the low 90's, he was felt to be working harder for his work of breathing and was placed on BiPAP which improved his saturations and lessened his work of breathing. Upon examining the patient in the room he is currently breathing comfortably on Bipap at 14/5 40%. He notes that he is no longer having chest pain and that it had already started to resolve by the time the nitroglycerin drip was started. He notes that he still is having some shortness of breath, primarily with deep inspiration. He notes that he had been "feeling fine" prior to this current episode, but does note a fairly extensive cardiac history that required hospitalization roughly 1 month ago when his defibrillator went off. He notes that he has not taken any of his home medications today. Allergies Allergy/AdvReac Type Severity Reaction Status Date / Time heparin Allergy Unknown Unknown Unverified 12/30/19 13:19 Home Medications Home Medications Medication Instructions Recorded Confirmed Type Tresiba FlexTouch U-200 36 unit SUBCUT QAM 12/07/19 12/30/19 History albuterol sulfate 2 puff INHALATION QID 12/07/19 12/30/19 History amiodarone 200 mg PO BID 12/07/19 12/30/19 History ascorbic acid (vitamin C) [Vitamin 500 mg PO BID 12/07/19 12/30/19 History C] clopidogrel 75 mg PO QAM 12/07/19 12/30/19 History cyanocobalamin (vitamin B-12) 1,000 mcg PO QAM 12/07/19 12/30/19 History [Vitamin B-12] docusate sodium 100 mg PO BID 12/07/19 12/30/19 History furosemide 80 mg PO QAM 12/07/19 12/30/19 History insulin aspart U-100 [Novolog See Rx Instructions .ROUTE .COMPLEX 12/07/19 12/30/19 History Flexpen U-100 Insulin] isosorbide mononitrate 30 mg PO QAM 12/07/19 12/30/19 History lisinopril 5 mg PO QAM 12/07/19 12/30/19 History nitroglycerin 0.4 mg SUBLINGUAL DIRECTED PRN 12/07/19 12/30/19 History omeprazole 20 mg PO QAM PRN 12/07/19 12/30/19 History atorvastatin 80 mg PO DAILY 12/30/19 12/30/19 History cyanocobalamin (vitamin B-12) 1,000 mcg IM MO 12/30/19 12/30/19 History [Vitamin B-12] ferrous sulfate 325 mg PO BID 12/30/19 12/30/19 History magnesium oxide 400 mg PO DAILY 12/30/19 12/30/19 History metoprolol succinate 100 mg PO DAILY 12/30/19 12/30/19 History potassium chloride [Klor-Con M10] 10 meq PO DAILY 12/30/19 12/30/19 History warfarin 1.25 mg PO MOWEFR 12/30/19 12/30/19 History warfarin 2.5 mg PO SUTUTHSA 12/30/19 12/30/19 History Patient History Medical History (Updated 12/30/19 @ 17:23 by CHARIS Reza) CAD (coronary artery disease) 07/2018: coronary artery bypass grafting x1 with reverse saphenous vein from aorta to right coronary artery via endoscopic saphenous vein harvesting; PCI to mid LAD with RIZWAN Chronic HFrEF (heart failure with reduced ejection fraction) Chronic kidney disease CKD (chronic kidney disease) stage 4, GFR 15-29 ml/min Diabetes mellitus, type 2 GERD (gastroesophageal reflux disease) History of ventricular fibrillation Hyperlipidemia Hypertension OBED on CPAP PAF (paroxysmal atrial fibrillation) Pernicious anemia Surgical History H/O aortic valve replacement Status post bioprosthetic AVR in 2004 Aortic valve prosthesis stenosis and mitral regurgitation requiring redo sternotomy jul 21 2013 with redo AVR and subsequent MVR. H/O mitral valve replacement History of appendectomy History of cardiac cath History of colonoscopy History of coronary artery bypass graft x 1 coronary artery bypass grafting x1 with reverse saphenous vein from aorta to right coronary artery via endoscopic saphenous vein harvesting. History of heart artery stent History of heart valve replacement ICD (implantable cardioverter-defibrillator) in place Family History Father Heart disease [place] @ age 64 Mother , age 34, stomach ca Cancer Social History Smoking Status: Never smoker Second Hand Exposure: No; Hx Alcohol Use: No Hx Substance Use: No Preferred Language: Kinyarwanda Communication Ability: Effective Making Department Preparer Required: No Beliefs That Will Affect Care: None Current Living Situation: Alone current occupation: retired Feels Safe at Home: Yes Assistive Devices: None Review of Systems Constitutional: + weakness; no fever and no chills Eyes: no worsening vision Ear, Nose, Mouth, Throat: no dizziness Respiratory: + chest congestion and + dyspnea; no cough Cardiovascular: + chest pain, + dyspnea, + dyspnea on exertion and + edema; no palpitations and no calf pain Gastrointestinal: no abdominal pain, no nausea and no vomiting Genitourinary: no dysuria Musculoskeletal: + back pain (low back pain ) Neurologic: no headache(s) Physical Exam Constitutional: well developed, well nourished, + ill appearing, + morbidly obese and cooperative Eyes: normal visual [place]roy by confrontation, + conjunctival abnormality (Small R medial conjunctival hemorrhage), PERRL and reactive pupils; no EOM movement deficit ENMT: external ear and nose normal, oropharynx normal Neck: normal visual inspection Respiratory: normal respiratory effort and able to speak in complete sentences ; no respiratory distress and no audible wheezes Auscultation: + crackles (in bases bilateral ); no wheezes On bipap 14/5 40% Cardiovascular: Rate/Rhythm: regular rate and regular rhythm Heart Sounds: no murmur Vessels: no JVD Extremities: + edema (+1); no calf tenderness Chest (Breasts): Chest: + pacemaker Gastrointestinal (Abdomen): Inspection/Auscultation: abdomen normal to inspection and normal bowel sounds; abdomen not distended Percussion/Palpation: abdomen soft; abdomen nontender Musculoskeletal: no cyanosis or clubbing, extremities motor strength 5/5 Head/Neck/Chest: normocephalic and head atraumatic Skin: no jaundice Trauma: + hematoma (RUE ) Neurologic: PERRL, EOMI, accommodation nl, no face palsy, no dysarthria Psychiatric: A+Ox3, euthymic affect Results & Data Results & Data ([place]) Vital Signs (Past 12 Hours) Vital Signs Temp Pulse Pulse Resp BP BP Pulse Ox 12/30/19 16:10 79 28 H 99 12/30/19 16:00 78 28 H 145/76 H 99 12/30/19 15:50 78 27 H 99 12/30/19 15:40 79 10 L 99 12/30/19 15:30 81 28 H 156/75 H 100 12/30/19 15:20 82 29 H 99 12/30/19 15:10 85 97 12/30/19 15:01 89 35 H 155/91 H 100 12/30/19 15:00 90 28 H 98 12/30/19 14:50 91 H 26 H 99 12/30/19 14:47 147 H 26 H 152/100 H 99 12/30/19 14:41 96 H 34 H 100 12/30/19 14:40 67 27 H 96 12/30/19 14:34 24 191/116 H 93 12/30/19 14:32 24 91 12/30/19 14:20 93 12/30/19 14:10 86 33 H 94 12/30/19 14:02 85 33 H 95 12/30/19 14:01 88 33 H 148/91 H 94 12/30/19 14:00 85 32 H 12/30/19 13:50 84 22 93 10/09/20 13:40 82 30 H 94 12/30/19 13:31 80 30 H 147/78 H 94 12/30/19 13:30 81 86 29 H 141/77 H 93 12/30/19 13:20 78 93 12/30/19 13:10 94 12/30/19 13:00 82 30 H 138/77 93 12/30/19 12:50 93 12/30/19 12:40 84 30 H 93 12/30/19 12:30 83 82 26 H 121/60 141/75 H 94 12/30/19 12:20 87 16 98 12/30/19 12:14 88 24 96 12/30/19 12:06 96 H 25 H 116/61 97 12/30/19 12:03 36.8 C 88 27 H 122/62 97 Resident Activity Tracking Resident Involvement: Resident Care Provided Care Provided: Adult [facility]
--- NOTE | 2019-12-30 16:34 | Electrocardiogram Report ---
Test Reason : Blood Pressure : / mmHG Vent. Rate : 086 BPM Atrial Rate : 086 BPM P-R Int : 130 ms QRS Dur : 172 ms QT Int : 450 ms P-R-T Axes : 007 254 077 degrees QTc Int : 538 ms Suspect unspecified pacemaker failure Ventricular paced rhythm Abnormal ECG When compared with ECG of 08-DEC-2019 06:47, Vent. rate has increased BY 18 BPM Confirmed by Justin Fish ([id number]) on 12/30/2019 4:33:56 PM Referred By: Confirmed By:Henry Fish
--- NOTE | 2019-12-30 16:56 | History & Physical Report ---
Date of Service December 30, 2019 Assessment & Plan (1) Acute MS: (2) Acute on chronic HFrEF (heart failure with reduced ejection fraction): -Admit to ICU -Patient presenting from home with reports of chest pain, shortness of breath, diaphoresis, nausea -2 recent hospitalizations as outlined in HPI for decompensated systolic CHF -Cardiac cath 12/09/2019 at [facility] demonstrated nonobstructive CAD and patent bypass graft and stents -Troponin 91.3, EKG demonstrating paced rhythm -CXR showing evidence of pulmonary edema -Placed on BiPAP, nitro drip, Lasix 40 mg IV -Case discussed with cardiology, Dr. Harmon. Given patient's CKD, medical complexity, and recent cardiac cath will treat medically with low threshold for transfer to [facility] if patient deteriorates. -Continue nitro drip, Lasix 80 mg IV twice daily, pulmonary support with BiPAP -On Coumadin with INR 2.8, no role for IV heparin at this time -Continue home medications of metoprolol, atorvastatin, clopidogrel. Holding isosorbide while on nitro drip, holding lisinopril due to hyperkalemia. (3) Hyperkalemia: -K+ 5.8 -Hold lisinopril -Should improve with diuresis, recheck BMP at 1900 (4) CKD (chronic kidney disease) stage 4, GFR 15-29 ml/min: -Baseline creatinine runs in the low 2's, mild elevation today with creatinine being 2.5 -Monitor renal function closely while receiving aggressive diuresis, low threshold for nephrology consult (5) History of ventricular fibrillation: -S/p AICD -On amiodarone (6) PAF (paroxysmal atrial fibrillation): -Rate controlled on metoprolol, rhythm controlled on amiodarone -Anticoagulated on Coumadin, INR 2.8 (7) Diabetes mellitus, type 2: -Hgb A1c 7.3 11/2019 -NovoLog per protocol while hospitalized (8) DVT prophylaxis: -On Coumadin with INR 2.8 History of Present Illness Chief Complaint: Chest pain Primary Care Provider: Glenn Payne PA-C 74-year-old male with complex medical history including DM type II, ischemic cardiomyopathy, paroxysmal atrial fibrillation, ventricular fibrillation s/p AICD, CKD stage IV, aortic and mitral valve replacements, and other problems listed below who presents the ED for evaluation of chest pain. Patient has had 2 hospitalizations recently, 11/23 through 12/02 at [facility] with transfer to [place] for acute systolic CHF and NSTEMI and then [facility] on 12/06 with transfer to [facility] for high risk cardiac cath. Cardiac cath demonstrated nonobstructive CAD. Device interrogation revealed V. fib arrest with ICD discharge x2. Patient was started on amiodarone and metoprolol succinate and atorvastatin were both titrated up. Patient reports he has been feeling well since his discharge until this morning when while he was driving, he developed chest pain. Patient reports the pain was located midsternally and rates the pain #7/10. He describes the pain as a pressure with some radiation to the jaw. He was also diaphoretic, short of breath, nauseated. Patient drove home and took 2 sublingual nitroglycerin without any relief in his symptoms. EMS was then called and patient was brought to the ED for further evaluation. Patient reports he does not weigh himself on a daily basis however denies any worsening lower extremity edema orthopnea. No syncopal events. Denies fevers and chills. No productive cough. Denies abdominal pain, vomiting, diarrhea. No urinary symptoms. In the ED, labs show troponin 91.3, CXR with evidence of pulmonary edema. EKG demonstrates a paced rhythm. Patient was placed on BiPAP. He was also given Lasix 40 mg IV and started on a nitro drip. At the time my exam, patient is resting in bed no acute distress. Currently rates his chest pain #1/10. Allergies Allergy/AdvReac Type Severity Reaction Status Date / Time heparin Allergy Unknown Unknown Unverified 12/30/19 13:19 Home Medications Home Medications Medication Instructions Recorded Confirmed Type Tresiba FlexTouch U-200 36 unit SUBCUT QAM 12/07/19 12/30/19 History albuterol sulfate 2 puff INHALATION QID 12/07/19 12/30/19 History amiodarone 200 mg PO BID 12/07/19 12/30/19 History ascorbic acid (vitamin C) [Vitamin 500 mg PO BID 12/07/19 12/30/19 History C] clopidogrel 75 mg PO QAM 12/07/19 12/30/19 History cyanocobalamin (vitamin B-12) 1,000 mcg PO QAM 12/07/19 12/30/19 History [Vitamin B-12] docusate sodium 100 mg PO BID 12/07/19 12/30/19 History furosemide 80 mg PO QAM 12/07/19 12/30/19 History insulin aspart U-100 [Novolog See Rx Instructions .ROUTE .COMPLEX 12/07/19 12/30/19 History Flexpen U-100 Insulin] isosorbide mononitrate 30 mg PO QAM 12/07/19 12/30/19 History lisinopril 5 mg PO QAM 12/07/19 12/30/19 History nitroglycerin 0.4 mg SUBLINGUAL DIRECTED PRN 12/07/19 12/30/19 History omeprazole 20 mg PO QAM PRN 12/07/19 12/30/19 History atorvastatin 80 mg PO DAILY 12/30/19 12/30/19 History cyanocobalamin (vitamin B-12) 1,000 mcg IM MO 12/30/19 12/30/19 History [Vitamin B-12] ferrous sulfate 325 mg PO BID 12/30/19 12/30/19 History magnesium oxide 400 mg PO DAILY 12/30/19 12/30/19 History metoprolol succinate 100 mg PO DAILY 12/30/19 12/30/19 History potassium chloride [Klor-Con M10] 10 meq PO DAILY 12/30/19 12/30/19 History warfarin 1.25 mg PO MOWEFR 12/30/19 12/30/19 History warfarin 2.5 mg PO SUTUTHSA 12/30/19 12/30/19 History Past Med/Surg History Medical History (Updated 12/30/19 @ 17:23 by CHARIS Reza) CAD (coronary artery disease) 07/2018: coronary artery bypass grafting x1 with reverse saphenous vein from aorta to right coronary artery via endoscopic saphenous vein harvesting; PCI to mid LAD with RIZWAN Chronic HFrEF (heart failure with reduced ejection fraction) Chronic kidney disease CKD (chronic kidney disease) stage 4, GFR 15-29 ml/min Diabetes mellitus, type 2 GERD (gastroesophageal reflux disease) History of ventricular fibrillation Hyperlipidemia Hypertension OBED on CPAP PAF (paroxysmal atrial fibrillation) Pernicious anemia Surgical History H/O aortic valve replacement Status post bioprosthetic AVR in 2004 Aortic valve prosthesis stenosis and mitral regurgitation requiring redo sternotomy jul 21 2013 with redo AVR and subsequent MVR. H/O mitral valve replacement History of appendectomy History of cardiac cath History of colonoscopy History of coronary artery bypass graft x 1 coronary artery bypass grafting x1 with reverse saphenous vein from aorta to right coronary artery via endoscopic saphenous vein harvesting. History of heart artery stent History of heart valve replacement ICD (implantable cardioverter-defibrillator) in place Family History Father Heart disease MS @ age 64 Mother , age 34, stomach ca Cancer Social History Smoking Status: Never smoker Second Hand Exposure: No; Hx Alcohol Use: No Hx Substance Use: No Preferred Language: Turkish Communication Ability: Effective Health Associate Required: No Beliefs That Will Affect Care: None Current Living Situation: Alone current occupation: retired Other Information That Helps Us Care for You: No Feels Safe at Home: Yes Safety Concerns: Feels Safe At This Time Assistive Devices: None Review of Systems Review of Systems: ROS per HPI, all other systems reviewed and negative Physical Exam Constitutional: WD/WN, vitals as above + obese Eyes: PERRL, conjunctivae normal, anicteric sclerae ENMT: external ear and nose normal, oropharynx normal Respiratory: normal respiratory effort; no respiratory distress Auscultation: + crackles (Bilateral) On BiPAP Cardiovascular: Rate/Rhythm: regular rate and regular rhythm Vessels: normal peripheral pulses Extremities: + edema (Trace edema BLE) Gastrointestinal (Abdomen): normal bowel sounds, soft, nontender, no hepatosplenomegaly Musculoskeletal: no cyanosis or clubbing, extremities motor strength 5/5 Skin: no rashes, warm and dry Neurologic: PERRL, EOMI, accommodation nl, no face palsy, no dysarthria Psychiatric: A+Ox3, euthymic affect Results & Data Results & Data ([facility]) Vital Signs (Past 12 Hours) Vital Signs Temp Pulse Pulse Resp BP BP Pulse Ox 12/30/19 16:30 78 24 144/78 H 100 12/30/19 16:10 79 28 H 99 12/30/19 16:00 78 28 H 145/76 H 99 12/30/19 15:50 78 27 H 99 12/30/19 15:40 79 10 L 99 12/30/19 15:30 81 28 H 156/75 H 100 12/30/19 15:20 82 29 H 99 12/30/19 15:10 85 97 12/30/19 15:01 89 35 H 155/91 H 100 12/30/19 15:00 90 28 H 98 12/30/19 14:50 91 H 26 H 99 12/30/19 14:47 147 H 26 H 152/100 H 99 12/30/19 14:41 96 H 34 H 100 12/30/19 14:40 67 27 H 96 12/30/19 14:34 24 191/116 H 93 12/30/19 14:32 24 91 12/30/19 14:20 93 12/30/19 14:10 86 33 H 94 12/30/19 14:02 85 33 H 95 12/30/19 14:01 88 33 H 148/91 H 94 12/30/19 14:00 85 32 H 12/30/19 13:50 84 22 93 12/30/19 13:40 82 30 H 94 12/30/19 13:31 80 30 H 147/78 H 94 12/30/19 13:30 81 86 29 H 141/77 H 93 12/30/19 13:20 78 93 12/30/19 13:10 94 12/30/19 13:00 82 30 H 138/77 93 12/30/19 12:50 93 12/30/19 12:40 84 30 H 93 12/30/19 12:30 83 82 26 H 121/60 141/75 H 94 12/30/19 12:20 87 16 98 12/30/19 12:14 88 24 96 12/30/19 12:06 96 H 25 H 116/61 97 12/30/19 12:03 36.8 C 88 27 H 122/62 97 Laboratory Results Short CBC 12/30/19 12/30/19 Range/Units 13:25 13:25 WBC 11.72 H (4.8-10.8) K/uL Hgb 12.1 L (14.0-18.0) g/dL Hct 38.3 L (42-52) % Plt Count 182 (130-400) K/uL Potassium 5.8 H (3.5-5.1) mmol/L Creatinine 2.57 H (0.6-1.4) mg/dl BMP 12/30/19 13:25 Sodium 138 Potassium 5.8 H Chloride 107 Carbon Dioxide 24 BUN 37 H Creatinine 2.57 H Glucose 209 H Calcium 8.7 Cardiac Enzymes 12/30/19 Range/Units 13:25 Troponin I 91.300 H* (0-0.045) ng/ml Liver Function 12/30/19 Range/Units 13:25 Total Bilirubin 0.5 (0.2-1) mg/dl AST 400 H (15-37) U/L ALT 53 (12-78) U/L Alkaline Phosphatase 110 (45-117) U/L Albumin 3.6 (3.4-5.0) gm/dl Diagnostic Findings CXR IMPRESSION: 1. Cardiomegaly with pulmonary edema. 2. Small right and trace left pleural effusions. 3. Right lung base opacities suggest atelectasis versus pneumonitis. Code Status & VTE Plan Code Status Patient is a full code as per my discussion with him. VTE Prophylaxis Plan VTE Prophylaxis will be ordered: No Supervising Physician Co-Signing Physician Notes Attending Addendum: care coordinated with CHARIS Hitchcock please refer to her notes for full details, I agree with her notes patient seen and examined, records reviewed by myself as well on exam, patient seen resting in bed, sitting up, comfortable on Bipap States breathing has since improved after BiPAP initiated Denies active chest pain, palpitations, nausea no other symptoms VS noted and reviewed oriented x 3, not in distress, speaks in sentences with no effort nor accessory muscle use normal rate, regular rhythm, no murmurs Positive crackles bilateral bases, no wheezing non distended, soft, nontender Positive grade 1 bilateral lower extremity edema, erythema, warmth no neuro deficits WBC 11.7 Hg 12.1 Crea 2.5 ASSESSMENT AND PLAN Acute CHF exacerbation Continue Lasix IV, nitroglycerin drip Market Director consulted Possible non-ST elevation MS Already on Coumadin, with therapeutic INR Also on Plavix, metoprolol Monitor troponin other diagnoses and plan of care as per CHARIS Casas MD
[2019-12-30 18:00] LABS: Adenovirus PCR Not Detected (NotDetected); Bordetella parapertussis PCR Not Detected (NotDetected); Bordetella pertussis PCR Not Detected (NotDetected); Chlamydia pneumoniae PCR Not Detected (NotDetected); Coronavirus 229E PCR Not Detected (NotDetected); Coronavirus CoV-2 (COVID19)PCR Not Detected (NotDetected); Coronavirus HKU1 PCR Not Detected (NotDetected); Coronavirus NL63 PCR Not Detected (NotDetected); Coronavirus OC43PCR Not Detected (NotDetected); Human Metapneumovirus PCR Not Detected (NotDetected); Influenza A PCR Not Detected (NotDetected); Influenza B PCR Not Detected (NotDetected); Mycoplasma pneumoniae PCR Not Detected (NotDetected); Parainfluenza Virus 1 PCR Not Detected (NotDetected); Parainfluenza Virus 2 PCR Not Detected (NotDetected); Parainfluenza Virus 3 PCR Not Detected (NotDetected); Parainfluenza Virus 4 PCR Not Detected (NotDetected); Respiratory Syncytial VirusPCR Not Detected (NotDetected); Rhinovirus/Enterovirus PCR Not Detected (NotDetected)
[2019-12-30] MEDS ORDERED: hydrALAZINE HCL 20 MG/ML VIAL IV PRN (18:12)
[2019-12-30] MEDS ORDERED: ICU PROTOCOL FOR HYPERGLYCEMIA PRN (18:12)
[2019-12-30] MEDS ORDERED: GLUCOSE 10 TABS/TUBE PO PRN (18:12)
[2019-12-30] MEDS ORDERED: GLUCAGON FOR INJ 1 MG VIAL SQ PRN (18:12)
[2019-12-30] MEDS ORDERED: GLUCOSE 40% GEL 15 GM TUBE PO PRN (18:12)
[2019-12-30] MEDS ORDERED: DEXTROSE 50% 50 ML SYRINGE IV PRN (18:12)
[2019-12-30] MEDS ORDERED: CARBOHYDRATES FOR HYPOGLYCEMIA PO PRN (18:12)
[2019-12-30] MEDS ORDERED: ICU ELECTROLYTE REPLACEMENT PROTOCOL PRN (18:56)
[2019-12-30] MEDS ORDERED: FUROSEMIDE 40 MG/4 ML VIAL IV SCH (21:00)
[2019-12-30 21:25] LABS: BUN Creatinine Ratio 16.4 (10-20); Blood Urea Nitrogen 44 mg/dl (7-18); Calcium 8.5 mg/dl (8.5-10.1); Carbon Dioxide 21 mmol/L (21-32); Chloride 110 mmol/L (98-107); Creatinine Clr Calc Pharmacy 33.9 ml/min; Est GFR (African American) 26.5; Est GFR (Non-African American) 22.9; Glucose 151 mg/dl (70-99); Sodium 139 mmol/L (136-145); Troponin I > 200.000 ng/ml (0-0.045)
[2019-12-30] MEDS: FUROSEMIDE 40 MG in SYRINGE 0 ML IV SCH (22:03)
[2019-12-30] MEDS: WARFARIN SOD 1.25 MG TAB PO SCH (22:03)
[2019-12-30] MEDS: INSULIN ASPART 100 UNITS/ML 3 ML PEN SC SCH (22:04)
[2019-12-30] MEDS: FERROUS SULFATE 325 MG TAB PO SCH (22:04)
[2019-12-30] MEDS: AMIODARONE 200 MG TAB PO SCH (22:05)
--- NOTE | 2019-12-30 22:19 | XRay Report ---
SINGLE VIEW CHEST CLINICAL HISTORY: Atypical chest pain. FINDINGS: 2 AP, portable, upright chest radiographs are compared to study performed earlier the same day 12/30/2019. The examination is degraded by portable technique and patient rotation. The patient is status post midline sternotomy and cardiac valve surgery. A 3-lead cardiac AICD is unchanged in posi tion and partially obscures the left mid chest. The heart is enlarged noting atherosclerotic calcific ation of the thoracic aorta. There is pulmonary vascular congestion with mild interstitial edema. The re are small pleural effusions with bibasilar atelectasis. No pneumothorax is seen. The skeletal stru ctures are osteopenic. The bony thorax is grossly intact. IMPRESSION: 1. Cardiomegaly and AICD with evidence of congestive failure and interstitial edema. This is unchange d from today's earlier examination. 2. There are small pleural effusions with bibasilar atelectasis. ACT 112: Negative or not required by law. Electronically signed by: Tesfaye Lock M.D. 12/30/2019 10:17 PM
[2019-12-30] MEDS ORDERED: SODIUM POLYSTYRENE SULFONATE 15G/60ML SUSP PO STA (23:10)
[2019-12-30] MEDS ORDERED: DEXTROSE 50% 50 ML SYRINGE IV ONE (23:49)
[2019-12-30] MEDS ORDERED: CALCIUM GLUCONATE 10% 1,000 MG in SODIUM CHLORIDE 0.9% 50 ML IV STA (23:53)
[2019-12-30] MEDS ORDERED: INSULIN HUMAN REGULAR PER UNIT 10 UNITS in SYRINGE 9.9 ML IV STA (23:54)
[2019-12-31 04:53] LABS: Hematocrit (blood only) 34.9 % (42-52); Hemoglobin 11.2 g/dL (14.0-18.0); Mean Corpuscular Hemoglobin 31.4 pg (25-34); Mean Corpuscular Hgb Conc 32.1 g/dL (32-36); Mean Corpuscular Volume 97.8 fL (80-100); Mean Platelet Volume 11.1 fL (7.4-10.4); Platelet Count 156 K/uL (130-400); RDW Coefficient of Variation 13.6 % (11.5-14.5); RDW Standard Deviation 48.3 fL (36.4-46.3); Red Blood Count 3.57 M/uL (4.7-6.1); White Blood Count 12.72 K/uL (4.8-10.8)
[2019-12-31 05:06] LABS: INR 2.7 (0.9-1.1); Prothrombin Time 26.8 Seconds (9.0-12.0)
[2019-12-31 05:31] LABS: BUN Creatinine Ratio 17.6 (10-20); Blood Urea Nitrogen 45 mg/dl (7-18); Calcium 8.4 mg/dl (8.5-10.1); Carbon Dioxide 24 mmol/L (21-32); Chloride 108 mmol/L (98-107); Creatinine Clr Calc Pharmacy 35.4 ml/min; Est GFR (African American) 27.9; Est GFR (Non-African American) 24.1; Glucose 155 mg/dl (70-99); Magnesium 1.9 mg/dl (1.8-2.4); Potassium 4.9 mmol/L (3.5-5.1); Sodium 138 mmol/L (136-145)
[2019-12-31 05:58] LABS: Phosphorus 4.6 mg/dl (2.5-4.9)
[2019-12-31] MEDS ORDERED: MAGNESIUM SULFATE / D5W 1 GM/100 ML BAG IV ONE (06:19)
[2019-12-31 06:49] LABS: Troponin I > 200.000 ng/ml (0-0.045)
--- NOTE | 2019-12-31 07:16 | Billing Data ---
Date of Service December 30, 2019 Coding Level of Care Code 33663 Inpt Consult Level 4
[2019-12-31] MEDS: FUROSEMIDE 40 MG in SYRINGE 0 ML IV SCH (07:53)
--- NOTE | 2019-12-31 07:57 | XRay Report ---
XR chest 1V portable CLINICAL HISTORY: chf exacerbation COMPARISON STUDY: Chest radiograph December 30, 2019 at 9:53 PM. FINDINGS: Note is made of a left biventricular pacer/AICD, prosthetic cardiac valve and median sterno jaswant wires. Marked cardiomegaly is noted. There is no pneumothorax. Small bilateral pleural effusions persist. Interstitial thickening and bilateral opacities are similar to prior exam. IMPRESSION: 1. No significant change in interstitial thickening and bilateral opacities which favor pulmonary juan daniel ma however an infectious process could appear similar. 2. Small bilateral pleural effusions. ACT 112: Negative or not required by law. Electronically signed by: Ayo Sage M.D. 12/31/2019 7:56 AM
--- NOTE | 2019-12-31 08:21 | Cardiology Progress Note ---
Date of Service December 31, 2019 Assessment & Plan (1) Acute SC: Repeat EKG this morning reveals ventricular paced rhythm. Although J-point elevation is noted in the precordial leads, I am not certain that this is reflective of an SC, as the morphology is not much different than his previous EKG tracings performed at time of presentation last month. Troponin was 90 on presentation yesterday, and trended up to greater than 200 ng/ ml overnight. Fortunately he is free of angina at present. Continue antiplatelet therapy with clopidogrel. Continue warfarin for anticoagulation given SC and his history of PAF. Patient underwent cardiac catheterization after V. fib arrest with successful defibrillation by his AICD last month. Moderate nonobstructive disease noted without coronary culprit. Has known moderate to severe left ventricular systolic dysfunction, LVEF graded as 30 to 35% prior admission a month ago. At present, medical management recommended. We will to reserve cardiac catheterization for if the patient develops recurrent angina refractory to medical therapy, cardiogenic shock (hypotension), or incessant ventricular arrhythmias. Currently nitroglycerin infusion is at 10 mcg/min, a relatively low dose. We will discontinue this and transition him to topical nitroglycerin. (2) Hyperkalemia: Potassium improved this morning. Change diet to low potassium diet. Continue to follow. (3) Acute on chronic HFrEF (heart failure with reduced ejection fraction): Continue cautious diuresis with furosemide 40 mg IV twice daily. Creatinine relatively stable compared to admission. However worse compared to previous baseline. (4) H/O mitral valve replacement: (5) H/O aortic valve replacement: Status post July 21, 2013 redo sternotomy, redo AVR (23 mm Trifecta), chordal sparing mitral valve replacement with a 31 mm Magna ease valve, and coronary artery bypass grafting x1 with reverse saphenous vein from aorta to right coronary artery via endoscopic saphenous vein harvesting. -History of bioprosthetic aortic valve replacement, bioprosthetic mitral valve replacement, with stable function on recent echo performed 12/07/2019. We will repeat echo. (6) CKD (chronic kidney disease) stage 4, GFR 15-29 ml/min: -Continue to follow. Recommend patient remains in the intensive care unit especially because of his history of intraocular arrhythmias. No arrhythmias overnight, no ICD discharges. Admission and Anticipated Discharge Date Admission Date: December 30, 2019 Subjective Patient seen in cardiology follow-up today with initial consultation having been performed in the emergency department by Dr. Harmon yesterday. Patient had been transitioned off of BiPAP to oxygen mask this morning and is tolerating it well. Hyperkalemia noted overnight for which she received calcium gluconate, IV insulin, and Kayexalate with interval improvement. Troponin I has trended up to >200 ng/ml x last two measurements. He denies chest discomfort at present and denies shortness of breath and states he is feeling much improved. He describes that he was feeling well up until in the morning yesterday when he had sudden onset of chest discomfort then developed progressive shortness of breath after arrival in the emergency room. Review of Systems Review of Systems: All systems reviewed & are unremarkable except as noted in HPI & below Physical Exam Physical Exam: Temp Pulse Resp BP Pulse Ox 36.5 C 80 18 156/79 H 92 12/30/19 18:14 12/31/19 05:27 12/31/19 05:27 12/31/19 03:26 12/31/19 05:27 Constitutional: + morbidly obese Chronically ill, no acute distress Respiratory: Mildly decreased breath sounds bilaterally at the bases Cardiovascular: Rate/Rhythm: regular rhythm Heart Sounds: no murmur Vessels: + JVD (JVD is difficult to assess due to his body habitus) Extremities: + edema (Trivial lower extremity edema) Gastrointestinal (Abdomen): normal bowel sounds, soft, nontender, no hepatosplenomegaly Neurologic: PERRL, EOMI, accommodation nl, no face palsy, no dysarthria Results & Data ([facility]) Vital Signs (Past 12 Hours) Vital Signs Pulse Resp BP Pulse Ox 12/31/19 05:27 80 18 92 12/31/19 03:26 70 28 H 156/79 H 95 12/31/19 02:56 80 29 H 151/79 H 95 12/31/19 02:26 77 26 H 149/81 H 96 12/31/19 01:56 76 24 148/76 H 94 12/31/19 01:48 77 16 94 12/31/19 01:26 76 33 H 138/77 95 12/31/19 00:56 75 26 H 139/79 94 12/31/19 00:26 75 30 H 138/91 96 12/30/19 23:56 76 22 141/79 H 95 12/30/19 23:26 72 27 H 146/82 H 95 12/30/19 22:56 76 27 H 138/76 94 12/30/19 22:37 82 22 96 12/30/19 22:26 81 27 H 166/95 H 96 12/30/19 21:56 83 38 H 165/125 H 97 12/30/19 21:26 83 30 H 175/121 H 98 12/30/19 20:56 81 28 H 183/106 H 98 12/30/19 20:26 82 29 H 156/90 H 99 12/30/19 20:23 82 29 H 131/71 99 Laboratory Results INR this morning is 2.7. Cardiac Enzymes 12/30/19 12/30/19 12/30/19 Range/Units 13:25 19:07 20:33 AST 400 H (15-37) U/L Troponin I 91.300 H* Cancelled > 200.000 H* (0-0.045) ng/ml 12/31/19 12/31/19 Range/Units 00:57 04:36 AST (15-37) U/L Troponin I > 200.000 H* > 200.000 H* (0-0.045) ng/ml Coagulation 12/30/19 12/31/19 Range/Units 13:25 04:36 PT 27.7 H 26.8 H (9.0-12.0) Seconds APTT 40.7 H (21.0-31.0) Seconds CBC 12/30/19 12/31/19 Range/Units 13:25 04:36 WBC 11.72 H 12.72 H (4.8-10.8) K/uL RBC 3.89 L 3.57 L (4.7-6.1) M/uL Hgb 12.1 L 11.2 L (14.0-18.0) g/dL Hct 38.3 L 34.9 L (42-52) % Plt Count 182 156 (130-400) K/uL Neut # (Auto) 9.29 H (1.4-6.5) K/uL Lymph # (Auto) 1.30 (1.2-3.4) K/uL [place] # (Auto) 0.92 H (0.11-0.59) K/uL Eos # (Auto) 0.13 (0-0.5) K/uL Baso # (Auto) 0.03 (0-0.2) K/uL Comprehensive Metabolic Panel 12/30/19 12/30/19 12/30/19 Range/Units 13:25 19:07 20:33 Sodium 138 Cancelled 139 (136-145) mmol/L Potassium 5.8 H Cancelled (3.5-5.1) mmol/L Chloride 107 Cancelled 110 H (98-107) mmol/L Carbon Dioxide 24 Cancelled 21 (21-32) mmol/L BUN 37 H Cancelled 44 H (7-18) mg/dl Creatinine 2.57 H Cancelled 2.65 H (0.6-1.4) mg/dl Glucose 209 H Cancelled 151 H (70-99) mg/dl Calcium 8.7 Cancelled 8.5 (8.5-10.1) mg/dl AST 400 H (15-37) U/L ALT 53 (12-78) U/L Alkaline Phosphatase 110 (45-117) U/L Total Protein 7.9 (6.4-8.2) gm/dl Albumin 3.6 (3.4-5.0) gm/dl 12/30/19 12/31/19 Range/Units 21:20 04:36 Sodium 138 (136-145) mmol/L Potassium 6.3 H* 4.9 D (3.5-5.1) mmol/L Chloride 108 H (98-107) mmol/L Carbon Dioxide 24 (21-32) mmol/L BUN 45 H (7-18) mg/dl Creatinine 2.54 H (0.6-1.4) mg/dl Glucose 155 H (70-99) mg/dl Calcium 8.4 L (8.5-10.1) mg/dl AST (15-37) U/L ALT (12-78) U/L Alkaline Phosphatase (45-117) U/L Total Protein (6.4-8.2) gm/dl Albumin (3.4-5.0) gm/dl Intake and Output 12/30/19 12/31/19 12/31/19 22:59 06:59 14:59 Intake Total 240.9 / 350.9 110 / 350.9 96.3 / 96.3 Output Total 450 / 1000 550 / 1000 Balance -209.1 / -649.1 -440 / -649.1 96.3 / 96.3 Intake: IV 0.9 / 60.9 60 / 60.9 96.3 / 96.3 Calcium Gluconate 10% 1,000 mg 60 / 60 In Nss 50 ml @ 240 mls/hr IV NOW [facility] Rx#:[id number] NITROGLYCERIN/D5w 100 Mcg/Ml 0.9 / 0.9 96.3 / 96.3 250 ML @ 10 MCG/MIN 6 mls/hr IV .Q24H [facility] Rx#:[id number] Oral 240 / 290 50 / 290 Output: Urine Amount (Catheter) 450 / 1000 550 / 1000 Matthews/Indwelling 450 / 1000 550 / 1000 Other: Weight 137 kg 139.7 kg Weight Measurement Method Built in [facility]
[2019-12-31] MEDS: NITROGLYCERIN 2% OINTMENT 30GM TUBE EXT SCH ×3 (08:52→19:50)
[2019-12-31] MEDS: CLOPIDOGREL BISULFATE 75 MG TAB PO SCH (08:53)
[2019-12-31] MEDS: CYANOCOBALAMIN 500 MCG TABLET (VITAMIN B-12) PO SCH (08:53)
[2019-12-31] MEDS: AMIODARONE 200 MG TAB PO SCH ×2 (08:53→19:50)
[2019-12-31] MEDS: METOPROLOL SUCC 50MG EXT REL TAB PO SCH (08:54)
[2019-12-31] MEDS: ATORVASTATIN 40 MG TAB PO SCH (08:54)
[2019-12-31] MEDS: FERROUS SULFATE 325 MG TAB PO SCH ×2 (08:54→19:51)
[2019-12-31] MEDS: INSULIN ASPART 100 UNITS/ML 3 ML PEN SC SCH ×4 (09:00→19:56)
--- NOTE | 2019-12-31 11:15 | Critical Care Progress Note ---
Date of Service December 31, 2019 Assessment & Plan (1) Acute MA: Impression: 74-year-old male with extensive cardiac history admitted with chest pain, elevated troponins, and suspicion for acute coronary syndrome. He recently underwent cardiac catheterization in [facility] and has been elected to be managed medically at this point in time. 24-hour events: Patient mated to the ICU. Transitioned off the IV nitroglycerin to Nitropaste. Chest pain-free. No arrhythmias. Patient was diuresed about 700 cc since yesterday Recommendations: 1. Acute MA: Continue medical management per cardiology. The patient is currently receiving beta-varsha, Coumadin, and Plavix as well as Lipitor. Discussed with cardiology again today. Plan to continue medical management in hopes of avoiding cardiac catheterization especially given his kidney function. Chest x-ray consistent with fluid overload and continuing Lasix. Oxygenation improved. 2. History of ventricular fibrillation: AICD in place. Continue amiodarone. 3. History of sleep disordered breathing: Continue nightly CPAP 4. Acute on chronic kidney disease: Nephrology consultation today. Discussed with nephrology. Appreciate their input. Will avoid potassium in patient's diet. Continue diuretics. Follow renal numbers. 5. Morbid obesity: Weight loss recommended. 6. Leukocytosis: Suspect related to the acute MA. Chest x-ray abnormal but likely secondary to pulmonary edema. Cannot exclude pulmonary hemorrhage. Bio fire and procalcitonin negative. No indication for antimicrobial agents currently. 7. Diabetes: Continue glycemic management. 8. Elevated AST likely secondary to acute MA. Other liver function tests unremarkable. No indication for additional work-up. Discussed with cardiology. We will continue to monitor in ICU for today. (2) Acute on chronic HFrEF (heart failure with reduced ejection fraction): (3) OBED on CPAP: (4) Hyperkalemia: Admission and Anticipated Discharge Date Admission Date: December 30, 2019 Subjective Patient seen and examined. EMR reviewed. The patient reports that he is feeli ng reasonably well. He is not having any chest pain. He does complain of a mild headache. He has been transitioned off the nitroglycerin drip and is currently on Nitropaste. He has not had any syncope or presyncope or sustained arrhythmias. His blood pressure is been adequate. Review of Systems Review of Systems: All systems reviewed & are unremarkable except as noted in HPI & below Physical Exam Constitutional: WD/WN, vitals as above + morbidly obese Neck: trachea midline, no thyromegaly Respiratory: normal respiratory effort, lungs clear to auscultation Cardiovascular: RRR, no murmur, no edema Gastrointestinal (Abdomen): normal bowel sounds, soft, nontender, no hepatosplenomegaly Musculoskeletal: Extremities: extremities normal to inspection Skin: no rashes, warm and dry Neurologic: Nonfocal exam Lymphatic: no cervical lymphadenopathy Results & Data Results & Data ([facility]) Vital Signs (Past 12 Hours) Vital Signs Temp Pulse Resp BP Pulse Ox 12/31/19 08:30 78 23 94 12/31/19 08:26 78 23 139/70 94 12/31/19 08:00 36.7 C 78 21 94 12/31/19 07:56 76 26 H 141/71 H 96 12/31/19 07:30 75 24 95 12/31/19 07:26 75 25 H 139/80 95 12/31/19 07:00 76 22 95 12/31/19 06:56 75 20 133/73 95 12/31/19 06:30 77 26 H 94 12/31/19 06:26 77 24 140/74 95 12/31/19 06:00 76 20 95 12/31/19 05:27 80 18 92 12/31/19 03:26 70 28 H 156/79 H 95 12/31/19 02:56 80 29 H 151/79 H 95 12/31/19 02:26 77 26 H 149/81 H 96 12/31/19 01:56 76 24 148/76 H 94 12/31/19 01:48 77 16 94 12/31/19 01:26 76 33 H 138/77 95 12/31/19 00:56 75 26 H 139/79 94 12/31/19 00:26 75 30 H 138/91 96 12/30/19 23:56 76 22 141/79 H 95 12/30/19 23:26 72 27 H 146/82 H 95 Laboratory Results 12/31/19 04:36 12/31/19 04:36 Bio fire negative Procalcitonin negative INR 2.7 Diagnostic Findings No new imaging Coding Level of Care Code 43139 Subseq Hosp Care Lvl 3 Diagnoses Acute MA I21.9 Acute on chronic HFrEF (heart failure with reduced ejection fraction) I50.23 OBED on CPAP G47.33; Z99.89 Hyperkalemia E87.5
--- NOTE | 2019-12-31 11:15 | Nephrology Consultation ---
Date of Consultation December 31, 2019 Assessment & Plan (1) CKD (chronic kidney disease) stage 4, GFR 15-29 ml/min: Patient with acute kidney injury on CKD. Baseline creatinine in the lower twos. Creatinine now 2.5. Electrolytes are stable except for hyperkalemia yesterday. No indication for dialysis. -Continue Lasix for volume management -Monitor input output and daily BMP. (2) Acute on chronic HFrEF (heart failure with reduced ejection fraction): Patient is improving with Lasix 40 mg IV twice daily. He was net -0.5 L yesterday. -Fluid restriction of 1.2 L daily. -Low-sodium diet and monitor daily standing weight. (3) Hyperkalemia: Potassium is better today at 4.9. Patient should be on a low potassium diet when eating. Will monitor potassium daily. No indication for dialysis. History of Present Illness Reason for Consultation: JUAN on CKD Requesting Physician: John Paul Casas MD Attending Physician: John Paul Casas MD History of Present Illness 74-year-old male with complex medical history including DM type II, ischemic cardiomyopathy, paroxysmal atrial fibrillation, ventricular fibrillation s/p AICD, CKD stage IV with baseline creatinine in the lower twos, aortic and mitral valve replacements who was admitted on 12/30/2019 with chest pain. Patient with recent hospitalization for similar symptoms. He was transferred to [facility] and status post cardiac catheterization which showed nonobstructive coronary disease. On admission patient was managed conservatively with nitroglycerin. He denies any chest pain this morning. No shortness of breath. Chest x-ray yesterday showed pulmonary edema. Patient is getting Lasix 40 mg IV twice daily. He was net -500 mL. Creatinine is up to 2.5 today. Patient also had hyperkalemia of 6.3 but has improved 4.9 today. He denies any vomiting or diarrhea. No leg swelling. Allergies Allergy/AdvReac Type Severity Reaction Status Date / Time heparin Allergy Unknown Unknown Unverified 12/30/19 13:19 Home Medications Home Medications Medication Instructions Recorded Confirmed Type Tresiba FlexTouch U-200 36 unit SUBCUT QAM 12/07/19 12/30/19 History albuterol sulfate 2 puff INHALATION QID 12/07/19 12/30/19 History amiodarone 200 mg PO BID 12/07/19 12/30/19 History ascorbic acid (vitamin C) [Vitamin 500 mg PO BID 12/07/19 12/30/19 History C] clopidogrel 75 mg PO QAM 12/07/19 12/30/19 History cyanocobalamin (vitamin B-12) 1,000 mcg PO QAM 12/07/19 12/30/19 History [Vitamin B-12] docusate sodium 100 mg PO BID 12/07/19 12/30/19 History furosemide 80 mg PO QAM 12/07/19 12/30/19 History insulin aspart U-100 [Novolog See Rx Instructions .ROUTE .COMPLEX 12/07/19 12/30/19 History Flexpen U-100 Insulin] isosorbide mononitrate 30 mg PO QAM 12/07/19 12/30/19 History lisinopril 5 mg PO QAM 12/07/19 12/30/19 History nitroglycerin 0.4 mg SUBLINGUAL DIRECTED PRN 12/07/19 12/30/19 History omeprazole 20 mg PO QAM PRN 12/07/19 12/30/19 History atorvastatin 80 mg PO DAILY 12/30/19 12/30/19 History cyanocobalamin (vitamin B-12) 1,000 mcg IM MO 12/30/19 12/30/19 History [Vitamin B-12] ferrous sulfate 325 mg PO BID 12/30/19 12/30/19 History magnesium oxide 400 mg PO DAILY 12/30/19 12/30/19 History metoprolol succinate 100 mg PO DAILY 12/30/19 12/30/19 History potassium chloride [Klor-Con M10] 10 meq PO DAILY 12/30/19 12/30/19 History warfarin 1.25 mg PO MOWEFR 12/30/19 12/30/19 History warfarin 2.5 mg PO SUTUTHSA 12/30/19 12/30/19 History Patient History Medical History (Updated 12/30/19 @ 17:23 by CHARIS Reza) CAD (coronary artery disease) 07/2018: coronary artery bypass grafting x1 with reverse saphenous vein from aorta to right coronary artery via endoscopic saphenous vein harvesting; PCI to mid LAD with RIZWAN Chronic HFrEF (heart failure with reduced ejection fraction) Chronic kidney disease CKD (chronic kidney disease) stage 4, GFR 15-29 ml/min Diabetes mellitus, type 2 GERD (gastroesophageal reflux disease) History of ventricular fibrillation Hyperlipidemia Hypertension OBED on CPAP PAF (paroxysmal atrial fibrillation) Pernicious anemia Surgical History H/O aortic valve replacement Status post bioprosthetic AVR in 2004 Aortic valve prosthesis stenosis and mitral regurgitation requiring redo sternotomy jul 21 2013 with redo AVR and subsequent MVR. H/O mitral valve replacement History of appendectomy History of cardiac cath History of colonoscopy History of coronary artery bypass graft x 1 coronary artery bypass grafting x1 with reverse saphenous vein from aorta to right coronary artery via endoscopic saphenous vein harvesting. History of heart artery stent History of heart valve replacement ICD (implantable cardioverter-defibrillator) in place Family History Father Heart disease [place] @ age 64 Mother , age 34, stomach ca Cancer Social History Smoking Status: Never smoker Second Hand Exposure: No; Hx Alcohol Use: No Hx Substance Use: No Preferred Language: Tajik Communication Ability: Effective Urban Renewal Manager Required: No Beliefs That Will Affect Care: None Current Living Situation: Alone current occupation: retired Other Information That Helps Us Care for You: No Feels Safe at Home: Yes Safety Concerns: Feels Safe At This Time Assistive Devices: None Review of Systems Review of Systems: All systems reviewed & are unremarkable except as noted in HPI & below Physical Exam Physical Exam: General exam: Appears comfortable, no acute distress HEENT: Pupils are equal and reactive to light Neck: No JVD, neck is supple trachea is midline Respiratory system: Clear breath sounds bilaterally. Gastrointestinal: Abdomen is soft, non distended, non tender, bowel sounds are present CVS: Regular rate and rhythm. No murmurs, rubs or gallops Musculoskeletal: No joint or muscle tenderness Extremities: Non tender, no edema, peripheral pulses are present Neuro: Oriented, no tremors, no focal neurological deficits Skin: No rashes Results & Data ([facility]) Vital Signs (Past 12 Hours) Vital Signs Temp Pulse Resp BP Pulse Ox 12/31/19 08:30 78 23 94 12/31/19 08:26 78 23 139/70 94 12/31/19 08:00 36.7 C 78 21 94 12/31/19 07:56 76 26 H 141/71 H 96 12/31/19 07:30 75 24 95 12/31/19 07:26 75 25 H 139/80 95 12/31/19 07:00 76 22 95 12/31/19 06:56 75 20 133/73 95 12/31/19 06:30 77 26 H 94 12/31/19 06:26 77 24 140/74 95 12/31/19 06:00 76 20 95 12/31/19 05:27 80 18 92 12/31/19 03:26 70 28 H 156/79 H 95 12/31/19 02:56 80 29 H 151/79 H 95 12/31/19 02:26 77 26 H 149/81 H 96 12/31/19 01:56 76 24 148/76 H 94 12/31/19 01:48 77 16 94 12/31/19 01:26 76 33 H 138/77 95 12/31/19 00:56 75 26 H 139/79 94 12/31/19 00:26 75 30 H 138/91 96 12/30/19 23:56 76 22 141/79 H 95 12/30/19 23:26 72 27 H 146/82 H 95 Laboratory Results 12/31/19 04:36 12/30/19 12/30/19 12/31/19 13:25 13:25 04:36 WBC 11.72 H 12.72 H RBC 3.89 L 3.57 L MCV 98.5 97.8 MCH 31.1 31.4 MCHC 31.6 L 32.1 RDW Std Deviation 49.4 H 48.3 H RDW Coeff of Rosio 13.9 13.6 Plt Count 182 156 MPV 11.1 H 11.1 H Phosphorus Albumin 3.6 12/31/19 04:36 WBC RBC MCV MCH MCHC RDW Std Deviation RDW Coeff of Rosio Plt Count MPV Phosphorus 4.6 Albumin
--- NOTE | 2019-12-31 12:12 | Electrocardiogram Report ---
Test Reason : Blood Pressure : / mmHG Vent. Rate : 084 BPM Atrial Rate : 084 BPM P-R Int : 130 ms QRS Dur : 152 ms QT Int : 422 ms P-R-T Axes : -09 239 038 degrees QTc Int : 498 ms Atrial-sensed ventricular-paced rhythm Biventricular pacemaker detected Abnormal ECG When compared with ECG of 30-DEC-2019 12:03, No significant change Confirmed by Feliz Alvarado ([id number]) on 12/31/2019 12:12:24 PM Referred By: REFERRED SELF Confirmed By:Feliz Alvarado
[2019-12-31 12:48] LABS: BUN Creatinine Ratio 18.3 (10-20); Blood Urea Nitrogen 49 mg/dl (7-18); Calcium 8.9 mg/dl (8.5-10.1); Carbon Dioxide 26 mmol/L (21-32); Chloride 104 mmol/L (98-107); Creatinine Clr Calc Pharmacy 33.9 ml/min; Est GFR (African American) 26.4; Est GFR (Non-African American) 22.8; Glucose 184 mg/dl (70-99); Potassium 4.2 mmol/L (3.5-5.1); Sodium 137 mmol/L (136-145)
[2019-12-31 13:22] LABS: Troponin I > 200.000 ng/ml (0-0.045)
--- NOTE | 2019-12-31 14:21 | Communication Note ---
Date of Service: December 31, 2019 Patient reassessed. Had troponin at 12:14 pm that remained elevated at > 200 ng/ml. Pt feeling well. He is on 3 L NC oxygen without recent chest pain or shortness of breath. No arrhythmias noted. Echo, LVEF decreased to 25-29% from 35-40% last month. Will repeat troponin in am. Continue supportive care.
[2019-12-31] MEDS ORDERED: WARFARIN SOD 2.5 MG TAB PO SCH (16:00)
--- NOTE | 2019-12-31 17:15 | Hospitalist Progress Note ---
Date of Service December 31, 2019 Assessment & Plan (1) Acute MD: (1) Acute MD: (2) Acute on chronic HFrEF (heart failure with reduced ejection fraction): -Patient presenting from home with reports of chest pain, shortness of breath, diaphoresis, nausea -2 recent hospitalizations as outlined in HPI for decompensated systolic CHF -Cardiac cath 12/09/2019 at [facility] demonstrated nonobstructive CAD and patent bypass graft and stents -Troponin 91.3 --> >200 EKG demonstrating paced rhythm Echo: EF 25 to 30%, basal inferior and basal posterior segments are severely hypokinetic to akinetic -CXR showing evidence of pulmonary edema -Placed on BiPAP, nitro drip, Lasix 40 mg IV -Chest pain-free today Continue Coumadin, Plavix, metoprolol Hold Lasix for increasing creatinine, now 2.6 from 2.1 last month (3) Hyperkalemia: -K+ 5.8 Resolved (4) CKD (chronic kidney disease) stage 4, GFR 15-29 ml/min: -Baseline creatinine runs in the low 2's, mild elevation today with creatinine being 2.6 -[employer] consulted (5) History of ventricular fibrillation: -S/p AICD -On amiodarone (6) PAF (paroxysmal atrial fibrillation): -Rate controlled on metoprolol, rhythm controlled on amiodarone -Anticoagulated on Coumadin, INR 2.7 (7) Diabetes mellitus, type 2: -Hgb A1c 7.3 11/2019 -NovoLog per protocol while hospitalized (8) DVT prophylaxis: -On Coumadin with INR 2.7 Admission and Anticipated Discharge Date Admission Date: December 30, 2019 Subjective Follow-up for acute MD, CHF Seen sitting up in bed, on 2 L of nasal cannula, not in distress Comfortable No chest pain States breathing is better compared to yesterday Has intermittent dry cough No fevers or chills Denies other symptoms Review of Systems Review of Systems: All systems reviewed & are unremarkable except as noted in Subjective Physical Exam Physical Exam: General- oriented x 3, not in distress, speaks in sentences with no effort or accessory muscle use Eyes- anicteric Neck- no JVD Lungs-mild rales bilateral bases, no rales or wheezing Heart- normal rate, regular rhythm; no murmurs Abdomen- normal bowel sounds, nondistended, soft, nontender Extremities- mild lower leg edema, no calf tenderness Neuro- alert, oriented x 3; no gross focal neurologic deficits Skin- warm & dry Results & Data Results & Data ([facility]) Vital Signs (Past 12 Hours) Vital Signs Temp Pulse Resp BP Pulse Ox 12/31/19 08:30 78 23 94 12/31/19 08:26 78 23 139/70 94 12/31/19 08:00 36.7 C 78 21 94 12/31/19 07:56 76 26 H 141/71 H 96 12/31/19 07:30 75 24 95 12/31/19 07:26 75 25 H 139/80 95 12/31/19 07:00 76 22 95 12/31/19 06:56 75 20 133/73 95 12/31/19 06:30 77 26 H 94 12/31/19 06:26 77 24 140/74 95 12/31/19 06:00 76 20 95 12/31/19 05:27 80 18 92 Laboratory Results Laboratory Results - last 24 hr 12/30/19 12/30/19 12/30/19 13:30 16:50 18:00 WBC RBC Hgb Hct MCV MCH MCHC RDW Std Deviation RDW Coeff of Rosio Plt Count MPV PT INR Sodium Potassium Chloride Carbon Dioxide Anion Gap BUN Creatinine Est Cr Clr Drug Dosing Est GFR ( Amer) Est GFR (Non-Af Amer) BUN/Creatinine Ratio Glucose POC Glucose Calcium Phosphorus Magnesium Troponin I Procalcitonin 0.09 Nasal Screen MRSA (PCR) Negative Adenovirus (PCR) Not Detected B. pertussis DNA (PCR) Not Detected B.parapertussis DNA PCR Not Detected C. pneumoniae DNA (PCR) Not Detected Coronavirus OC43 (PCR) Not Detected Coronavirus HKU1 (PCR) Not Detected Coronavirus 229E (PCR) Not Detected COVID-19 PCR Not Detected Coronavirus NL63 (PCR) Not Detected Human Metapneumovir PCR Not Detected Influenza Type A (PCR) Not Detected Influenza Type B (PCR) Not Detected M. pneumoniae (PCR) Not Detected Parainfluenza 1 (PCR) Not Detected Parainfluenza 2 (PCR) Not Detected Parainfluenza 3 (PCR) Not Detected Parainfluenza 4 (PCR) Not Detected RSV (PCR) Not Detected Entero/Rhino (PCR) Not Detected 12/30/19 12/30/19 12/30/19 19:07 20:33 21:20 WBC RBC Hgb Hct MCV MCH MCHC RDW Std Deviation RDW Coeff of Rosio Plt Count MPV PT INR Sodium Cancelled 139 Potassium Cancelled 6.3 H* Chloride Cancelled 110 H Carbon Dioxide Cancelled 21 Anion Gap Cancelled 8.0 BUN Cancelled 44 H Creatinine Cancelled 2.65 H Est Cr Clr Drug Dosing Cancelled 33.9 Est GFR ( Amer) Cancelled 26.5 Est GFR (Non-Af Amer) Cancelled 22.9 BUN/Creatinine Ratio Cancelled 16.4 Glucose Cancelled 151 H POC Glucose Calcium Cancelled 8.5 Phosphorus Magnesium Troponin I Cancelled > 200.000 H* Procalcitonin Nasal Screen MRSA (PCR) Adenovirus (PCR) B. pertussis DNA (PCR) B.parapertussis DNA PCR C. pneumoniae DNA (PCR) Coronavirus OC43 (PCR) Coronavirus HKU1 (PCR) Coronavirus 229E (PCR) COVID-19 PCR Coronavirus NL63 (PCR) Human Metapneumovir PCR Influenza Type A (PCR) Influenza Type B (PCR) M. pneumoniae (PCR) Parainfluenza 1 (PCR) Parainfluenza 2 (PCR) Parainfluenza 3 (PCR) Parainfluenza 4 (PCR) RSV (PCR) Entero/Rhino (PCR) 12/30/19 12/31/19 12/31/19 22:01 00:57 04:36 WBC 12.72 H RBC 3.57 L Hgb 11.2 L Hct 34.9 L MCV 97.8 MCH 31.4 MCHC 32.1 RDW Std Deviation 48.3 H RDW Coeff of Rosio 13.6 Plt Count 156 MPV 11.1 H PT INR Sodium Potassium Chloride Carbon Dioxide Anion Gap BUN Creatinine Est Cr Clr Drug Dosing Est GFR ( Amer) Est GFR (Non-Af Amer) BUN/Creatinine Ratio Glucose POC Glucose 168 H Calcium Phosphorus Magnesium Troponin I > 200.000 H* Procalcitonin Nasal Screen MRSA (PCR) Adenovirus (PCR) B. pertussis DNA (PCR) B.parapertussis DNA PCR C. pneumoniae DNA (PCR) Coronavirus OC43 (PCR) Coronavirus HKU1 (PCR) Coronavirus 229E (PCR) COVID-19 PCR Coronavirus NL63 (PCR) Human Metapneumovir PCR Influenza Type A (PCR) Influenza Type B (PCR) M. pneumoniae (PCR) Parainfluenza 1 (PCR) Parainfluenza 2 (PCR) Parainfluenza 3 (PCR) Parainfluenza 4 (PCR) RSV (PCR) Entero/Rhino (PCR) 12/31/19 12/31/19 12/31/19 04:36 04:36 07:26 WBC RBC Hgb Hct MCV MCH MCHC RDW Std Deviation RDW Coeff of Rosio Plt Count MPV PT 26.8 H INR 2.7 H Sodium 138 Potassium 4.9 D Chloride 108 H Carbon Dioxide 24 Anion Gap 6.0 BUN 45 H Creatinine 2.54 H Est Cr Clr Drug Dosing 35.4 Est GFR ( Amer) 27.9 Est GFR (Non-Af Amer) 24.1 BUN/Creatinine Ratio 17.6 Glucose 155 H POC Glucose 162 H Calcium 8.4 L Phosphorus 4.6 Magnesium 1.9 Troponin I > 200.000 H* Procalcitonin Nasal Screen MRSA (PCR) Adenovirus (PCR) B. pertussis DNA (PCR) B.parapertussis DNA PCR C. pneumoniae DNA (PCR) Coronavirus OC43 (PCR) Coronavirus HKU1 (PCR) Coronavirus 229E (PCR) COVID-19 PCR Coronavirus NL63 (PCR) Human Metapneumovir PCR Influenza Type A (PCR) Influenza Type B (PCR) M. pneumoniae (PCR) Parainfluenza 1 (PCR) Parainfluenza 2 (PCR) Parainfluenza 3 (PCR) Parainfluenza 4 (PCR) RSV (PCR) Entero/Rhino (PCR) 12/31/19 12/31/19 12/31/19 11:48 12:14 16:28 WBC RBC Hgb Hct MCV MCH MCHC RDW Std Deviation RDW Coeff of Rosio Plt Count MPV PT INR Sodium 137 Potassium 4.2 Chloride 104 Carbon Dioxide 26 Anion Gap 7.0 BUN 49 H Creatinine 2.66 H Est Cr Clr Drug Dosing 33.9 Est GFR ( Amer) 26.4 Est GFR (Non-Af Amer) 22.8 BUN/Creatinine Ratio 18.3 Glucose 184 H POC Glucose 183 H 166 H Calcium 8.9 Phosphorus Magnesium Troponin I > 200.000 H* Procalcitonin Nasal Screen MRSA (PCR) Adenovirus (PCR) B. pertussis DNA (PCR) B.parapertussis DNA PCR C. pneumoniae DNA (PCR) Coronavirus OC43 (PCR) Coronavirus HKU1 (PCR) Coronavirus 229E (PCR) COVID-19 PCR Coronavirus NL63 (PCR) Human Metapneumovir PCR Influenza Type A (PCR) Influenza Type B (PCR) M. pneumoniae (PCR) Parainfluenza 1 (PCR) Parainfluenza 2 (PCR) Parainfluenza 3 (PCR) Parainfluenza 4 (PCR) RSV (PCR) Entero/Rhino (PCR)
[2019-12-31] MEDS ORDERED: ACETAMINOPHEN 500 MG TAB PO PRN (18:23)
[2020-01-01] MEDS: NITROGLYCERIN 2% OINTMENT 30GM TUBE EXT SCH ×2 (02:47→09:03)
[2020-01-01 05:14] LABS: Basophils # (auto) 0.02 K/uL (0-0.2); Basophils % (auto) 0.2 %; Eosinophils # (auto) 0.16 K/uL (0-0.5); Eosinophils % (auto) 1.6 %; Hematocrit (blood only) 34.7 % (42-52); Hemoglobin 10.8 g/dL (14.0-18.0); Immature Granulocytes # (auto) 0.02 K/uL (0.00-0.02); Immature Granulocytes % (auto) 0.2 %; Lymphocytes # (auto) 1.61 K/uL (1.2-3.4); Lymphocytes % (auto) 16.5 %; Mean Corpuscular Hemoglobin 30.3 pg (25-34); Mean Corpuscular Hgb Conc 31.1 g/dL (32-36); Mean Corpuscular Volume 97.5 fL (80-100); Mean Platelet Volume 11.1 fL (7.4-10.4); Monocytes # (auto) 1.07 K/uL (0.11-0.59); Neutrophils # (auto) 6.87 K/uL (1.4-6.5); Neutrophils % (auto) 70.5 %; Platelet Count 163 K/uL (130-400); RDW Coefficient of Variation 13.7 % (11.5-14.5); RDW Standard Deviation 49.2 fL (36.4-46.3); Red Blood Count 3.56 M/uL (4.7-6.1); White Blood Count 9.75 K/uL (4.8-10.8)
[2020-01-01 05:26] LABS: INR 2.7 (0.9-1.1); Prothrombin Time 27.2 Seconds (9.0-12.0)
[2020-01-01 05:40] LABS: BUN Creatinine Ratio 21.3 (10-20); Calcium 8.6 mg/dl (8.5-10.1); Creatinine Clr Calc Pharmacy 37.6 ml/min; Est GFR (African American) 29.9; Est GFR (Non-African American) 25.8; Potassium 3.9 mmol/L (3.5-5.1)
[2020-01-01 06:29] LABS: Phosphorus 3.9 mg/dl (2.5-4.9)
--- NOTE | 2020-01-01 07:25 | XRay Report ---
XR chest 1V portable CLINICAL HISTORY: chf exacerbation COMPARISON STUDY: Chest radiograph December 31, 2019. FINDINGS: Left subclavian biventricular pacer/AICD, median sternotomy wires and prosthetic cardiac va lve are noted. Marked cardiomegaly is unchanged. There is no pneumothorax. Small bilateral pleural ef fusions are unchanged. Interstitial thickening and bilateral opacities persist. IMPRESSION: 1. Persistent interstitial thickening and bilateral opacities which favor pulmonary edema. An infecti ous process could appear similar although is considered less likely. 2. Small bilateral pleural effusions. ACT 112: Negative or not required by law. Electronically signed by: Ayo Sage M.D. 01/01/2020 7:24 AM
--- NOTE | 2020-01-01 07:52 | Critical Care Progress Note ---
Date of Service January 01, 2020 Assessment & Plan (1) Acute NC: Impression: 74-year-old male with extensive cardiac history admitted with chest pain, elevated troponins, and suspicion for acute coronary syndrome. He recently underwent cardiac catheterization in [facility] and has been elected to be managed medically at this point in time. 24-hour events: Patient continues to improve. He was transitioned off nitro to Nitropaste. He is remained pain-free. No palpitations or arrhythmias noted. He is tolerating a diet. He has been hemodynamically stable. Low-grade fever overnight. Recommendations: 1. Acute NC: Continue medical management per cardiology. The patient is currently receiving beta-varsha, Coumadin, and Plavix as well as Lipitor. Discussed with cardiology again today. Plan to continue medical management in hopes of avoiding cardiac catheterization especially given his kidney function. Chest x-ray consistent with fluid overload and continuing Lasix. Oxygenation improved. Do not see much utility in continuing to measure troponins but will defer to cardiology 2. History of ventricular fibrillation: AICD in place. Continue amiodarone. 3. History of sleep disordered breathing: Continue nightly CPAP 4. Acute on chronic kidney disease: Nephrology consultation today. Discussed with nephrology. Appreciate their input. Will avoid potassium in patient's diet. Continue diuretics. Follow renal numbers. 5. Morbid obesity: Weight loss recommended. 6. Leukocytosis: Resolving today 7. Diabetes: Continue glycemic management. 8. Elevated AST likely secondary to acute NC. Other liver function tests unremarkable. No indication for additional work-up. 9. Pulmonary edema: Much better. X-ray improving. Continue gentle diuresis as tolerated by renal 10. Low-grade fever: May be related to NC. No obvious signs of infection. Hold antibiotics and follow clinically at this point time. Okay to transfer to the floor from my perspective. Ultimate disposition per cardiology and primary service. We will sign off when leaves the ICU (2) Acute on chronic HFrEF (heart failure with reduced ejection fraction): (3) OBED on CPAP: (4) Hyperkalemia: Admission and Anticipated Discharge Date Admission Date: December 30, 2019 Subjective Patient seen and examined. He sitting up at the bedside eating breakfast. He reports that he feels well. No chest pain or palpitations. Has been hemodynamically stable. He is tolerating the Nitropaste. His headache is resolved. Review of Systems Review of Systems: All systems reviewed & are unremarkable except as noted in HPI & below Physical Exam Constitutional: WD/WN, vitals as above + morbidly obese Neck: trachea midline, no thyromegaly Respiratory: normal respiratory effort, lungs clear to auscultation Cardiovascular: RRR, no murmur, no edema Gastrointestinal (Abdomen): normal bowel sounds, soft, nontender, no hepatosplenomegaly Musculoskeletal: Extremities: extremities normal to inspection Skin: no rashes, warm and dry Lymphatic: no cervical lymphadenopathy Results & Data Results & Data ([facility]) Vital Signs (Past 12 Hours) Vital Signs Temp Pulse Resp BP Pulse Ox 01/01/20 07:41 74 01/01/20 06:27 36.7 C 74 15 126/77 94 01/01/20 05:57 74 14 129/65 94 01/01/20 05:27 76 24 130/76 94 01/01/20 05:21 72 16 94 01/01/20 04:57 73 12 137/77 94 01/01/20 04:27 36.7 C 73 21 138/70 94 01/01/20 03:57 78 23 143/73 H 96 01/01/20 03:27 71 23 139/69 93 01/01/20 02:57 67 22 122/65 94 01/01/20 02:27 68 21 117/60 95 01/01/20 01:57 70 23 126/68 96 01/01/20 01:27 70 22 127/65 92 01/01/20 00:57 71 16 131/65 95 01/01/20 00:27 72 13 122/65 93 12/31/19 23:57 37.2 C 73 19 122/65 95 12/31/19 23:27 73 15 131/59 L 95 12/31/19 22:57 74 22 126/62 95 12/31/19 22:27 75 17 116/58 L 94 12/31/19 21:57 77 18 121/59 L 94 12/31/19 21:39 84 20 93 12/31/19 21:27 84 29 H 119/71 90 12/31/19 20:57 37.6 C H 85 20 116/68 91 12/31/19 20:27 87 18 125/63 91 12/31/19 19:57 38.4 C H 87 19 121/66 91 Laboratory Results 01/01/20 04:39 01/01/20 04:39 Intake and output last 24 hours: -622 mL's Diagnostic Findings Chest x-ray from today was independently reviewed. Cardiomegaly again noted. There is some mild persistent pulmonary edema but overall it appears better from presentation. Continued clearing of the left lung field compared to yesterday. Coding Level of Care Code [address] [facility] 2 Diagnoses Acute NC I21.9 Acute on chronic HFrEF (heart failure with reduced ejection fraction) I50.23 OBED on CPAP G47.33; Z99.89 Hyperkalemia E87.5
[2020-01-01] MEDS: INSULIN ASPART 100 UNITS/ML 3 ML PEN SC SCH ×4 (08:53→20:14)
[2020-01-01] MEDS: AMIODARONE 200 MG TAB PO SCH ×2 (08:55→20:13)
[2020-01-01] MEDS: CLOPIDOGREL BISULFATE 75 MG TAB PO SCH (08:55)
[2020-01-01] MEDS: CYANOCOBALAMIN 500 MCG TABLET (VITAMIN B-12) PO SCH (08:55)
[2020-01-01] MEDS: FERROUS SULFATE 325 MG TAB PO SCH ×2 (08:55→20:14)
[2020-01-01] MEDS: METOPROLOL SUCC 50MG EXT REL TAB PO SCH (08:55)
[2020-01-01] MEDS: ATORVASTATIN 40 MG TAB PO SCH (08:55)
[2020-01-01] MEDS: FUROSEMIDE 40 MG in SYRINGE 0 ML IV SCH ×2 (10:11→20:13)
--- NOTE | 2020-01-01 10:16 | Nephrology Progress Note ---
Date of Service January 01, 2020 Assessment & Plan (1) CKD (chronic kidney disease) stage 4, GFR 15-29 ml/min: Patient with acute kidney injury on CKD. Baseline creatinine in the lower twos. Creatinine now 2.4. Electrolytes are stable. No indication for dialysis. -Continue Lasix for volume management -Monitor input output and daily BMP. (2) Acute on chronic HFrEF (heart failure with reduced ejection fraction): Patient with worsening CHF likely due to ischemic cardiomyopathy. Cardiology planning cardiac cath after optimizing volume status. Patient is improving with Lasix 40 mg IV twice daily. He was net -0.8 L yesterday. -Fluid restriction of 1.2 L daily. -Low-sodium diet and monitor daily standing weight. -Continue Lasix (3) Hyperkalemia: Potassium is better today at 3.9. Patient should be on a low potassium diet when eating. Will monitor potassium daily. Admission and Anticipated Discharge Date Admission Date: December 30, 2019 Subjective . Breathing is improved.Patient feels better today He was net -800 mL. Chest x-ray still showing pulmonary edema. Creatinine 2.4 today. Review of Systems Review of Systems: All systems reviewed & are unremarkable except as noted in HPI & below Physical Exam Physical Exam: General exam: Appears comfortable on oxygen nasal cannula, no acute distress HEENT: Pupils are equal and reactive to light Neck: No JVD, neck is supple trachea is midline Respiratory system: Clear breath sounds bilaterally. Gastrointestinal: Abdomen is soft, non distended, non tender, bowel sounds are present CVS: Regular rate and rhythm. No murmurs, rubs or gallops Musculoskeletal: No joint or muscle tenderness Extremities: Non tender, no edema, peripheral pulses are present Neuro: Oriented, no tremors, no focal neurological deficits Skin: No rashes Results & Data ([facility]) Vital Signs (Past 12 Hours) Vital Signs Temp Pulse Resp BP Pulse Ox 01/01/20 07:41 74 01/01/20 06:27 36.7 C 74 15 126/77 94 01/01/20 05:57 74 14 129/65 94 01/01/20 05:27 76 24 130/76 94 01/01/20 05:21 72 16 94 01/01/20 04:57 73 12 137/77 94 01/01/20 04:27 36.7 C 73 21 138/70 94 01/01/20 03:57 78 23 143/73 H 96 01/01/20 03:27 71 23 139/69 93 01/01/20 02:57 67 22 122/65 94 01/01/20 02:27 68 21 117/60 95 01/01/20 01:57 70 23 126/68 96 01/01/20 01:27 70 22 127/65 92 01/01/20 00:57 71 16 131/65 95 01/01/20 00:27 72 13 122/65 93 12/31/19 23:57 37.2 C 73 19 122/65 95 12/31/19 23:27 73 15 131/59 L 95 12/31/19 22:57 74 22 126/62 95 12/31/19 22:27 75 17 116/58 L 94 Laboratory Results 01/01/20 04:39 01/01/20 01/01/20 04:39 04:39 WBC 9.75 RBC 3.56 L MCV 97.5 MCH 30.3 MCHC 31.1 L RDW Std Deviation 49.2 H RDW Coeff of Rosio 13.7 Plt Count 163 MPV 11.1 H Phosphorus 3.9
[2020-01-01] MEDS: ISOSORBIDE MONO EXTENDED REL 60 MG TABCR PO SCH (12:12)
--- NOTE | 2020-01-01 12:16 | Cardiology Progress Note ---
Date of Service January 01, 2020 Assessment & Plan (1) Acute PA: EKG remains of limited diagnostic utility due to ventricular paced rhythm. Patient free of angina, troponin I has trended down to 101 ng/ml has been greater than 200 ng/ml on several measurements. Echocardiogram performed 12/31/2019 with findings of severe left ventricular systolic dysfunction, LVEF in the range of 25 to 29%, compared to 35 to 40% in November 2019 with suggestion of new apical wall motion abnormality. No LV thrombus. Continue medical therapy with clopidogrel plus warfarin, metoprolol, isosorbide mononitrate 60 mg daily added, had been on 30 mg as an outpatient. Glycerin infusion and he successfully weaned. Patient is not on aspirin due to coexistent anemia, hemoglobin relatively stable at 10.8. Remains on iron supplement. (2) Hyperkalemia: Hyperkalemia noted on admission, down to 3.9 today. (3) Acute on chronic HFrEF (heart failure with reduced ejection fraction): Furosemide held last evening due to creatinine of 2.6, creatinine was down to 2.4 this morning, he is now back on furosemide 40 mg IV twice a day. Not on ASIA / ARB or Entresto due to renal insufficiency. (4) H/O mitral valve replacement: (5) H/O aortic valve replacement: Status post July 21, 2013 redo sternotomy, redo AVR (23 mm Trifecta), chordal sparing mitral valve replacement with a 31 mm Magna ease valve, and coronary artery bypass grafting x1 with reverse saphenous vein from aorta to right coronary artery via endoscopic saphenous vein harvesting. -Stable prosthetic valve function noted on echocardiogram. (6) CKD (chronic kidney disease) stage 4, GFR 15-29 ml/min: -Creatinine down to 2.4. Continue to monitor (7) History of ventricular fibrillation: Recent appropriate ICD discharge November, for ventricular fibrillation. Patient remains on metoprolol and amiodarone. No arrhythmias noted thus far on telemetry. Stable from a cardiology standpoint for transfer from the first floor intensive care unit, to second floor, PCU. Admission and Anticipated Discharge Date Admission Date: December 30, 2019 Subjective Patient seen in follow-up. He was still in ICU room 103. He had done well yesterday and overnight and thus far today. He is on nasal cannula oxygen, and has not required any additional BiPAP support. He denies chest pressure or shor tness of breath with rest. Telemetry reveals sinus rhythm with atrial ventricular pacing. Physical Exam Physical Exam: Temp Pulse Resp BP Pulse Ox 36.7 C 74 15 126/77 94 01/01/20 06:27 01/01/20 07:41 01/01/20 06:27 01/01/20 06:27 01/01/20 06:27 Constitutional: WD/WN, vitals as above Respiratory: normal respiratory effort, lungs clear to auscultation Cardiovascular: RRR, no murmur, no edema Vessels: + JVD (Jugular venous distention difficult to assess given body habitus) Extremities: no edema Gastrointestinal (Abdomen): normal bowel sounds, soft, nontender, no hepatosplenomegaly Neurologic: PERRL, EOMI, accommodation nl, no face palsy, no dysarthria Results & Data ([facility]) Vital Signs (Past 12 Hours) Vital Signs Temp Pulse Resp BP Pulse Ox 01/01/20 07:41 74 01/01/20 06:27 36.7 C 74 15 126/77 94 01/01/20 05:57 74 14 129/65 94 01/01/20 05:27 76 24 130/76 94 01/01/20 05:21 72 16 94 01/01/20 04:57 73 12 137/77 94 01/01/20 04:27 36.7 C 73 21 138/70 94 01/01/20 03:57 78 23 143/73 H 96 01/01/20 03:27 71 23 139/69 93 01/01/20 02:57 67 22 122/65 94 01/01/20 02:27 68 21 117/60 95 01/01/20 01:57 70 23 126/68 96 01/01/20 01:27 70 22 127/65 92 01/01/20 00:57 71 16 131/65 95 01/01/20 00:27 72 13 122/65 93 Laboratory Results Cardiac Enzymes 12/31/19 01/01/20 Range/Units 12:14 04:39 Troponin I > 200.000 H* 101.000 H* (0-0.045) ng/ml Coagulation: INR today 01/01/2020 is 2.7 01/01/20 Range/Units 04:39 PT 27.2 H (9.0-12.0) Seconds CBC 01/01/20 Range/Units 04:39 WBC 9.75 (4.8-10.8) K/uL RBC 3.56 L (4.7-6.1) M/uL Hgb 10.8 L (14.0-18.0) g/dL Hct 34.7 L (42-52) % Plt Count 163 (130-400) K/uL Neut # (Auto) 6.87 H (1.4-6.5) K/uL Lymph # (Auto) 1.61 (1.2-3.4) K/uL Mckinley # (Auto) 1.07 H (0.11-0.59) K/uL Eos # (Auto) 0.16 (0-0.5) K/uL Baso # (Auto) 0.02 (0-0.2) K/uL Comprehensive Metabolic Panel 12/31/19 01/01/20 Range/Units 12:14 04:39 Sodium 137 138 (136-145) mmol/L Potassium 4.2 3.9 (3.5-5.1) mmol/L Chloride 104 103 (98-107) mmol/L Carbon Dioxide 26 27 (21-32) mmol/L BUN 49 H 51 H (7-18) mg/dl Creatinine 2.66 H 2.40 H (0.6-1.4) mg/dl Glucose 184 H 140 H (70-99) mg/dl Calcium 8.9 8.6 (8.5-10.1) mg/dl Intake and Output 12/31/19 01/01/20 01/01/20 22:59 06:59 14:59 Intake Total 330 / 1137.3 420 / 420 Output Total 310 / 1760 350 / 1760 Balance 20 / -622.7 -350 / -622.7 420 / 420 Intake: Oral 330 / 930 420 / 420 Output: Urine Amount (Catheter) 310 1760 350 / 1760 Matthews/Indwelling 310 176 350 / 1760 Other: Weight 142.4 kg 142.4 kg Weight Measurement Method Built in [facility] Patient Weight 01/02/20 06:59 Weight 142.4 kg
[2020-01-01] MEDS ORDERED: NITROGLYCERIN SL 0.4 MG/TAB TAB SL PRN (12:27)
--- NOTE | 2020-01-01 12:28 | Electrocardiogram Report ---
Test Reason : Blood Pressure : / mmHG Vent. Rate : 081 BPM Atrial Rate : 081 BPM P-R Int : 096 ms QRS Dur : 080 ms QT Int : 370 ms P-R-T Axes : 000 269 055 degrees QTc Int : 429 ms Atrial-sensed ventricular-paced rhythm Biventricular pacemaker detected Abnormal ECG When compared with ECG of 30-DEC-2019 22:10, Vent. rate has decreased BY 3 BPM Confirmed by Feliz Alvarado ([id number]) on 01/01/2020 12:27:42 PM Referred By: REFERRED SELF Confirmed By:Feliz Alvarado
[2020-01-01] MEDS: WARFARIN SOD 2.5 MG TAB PO SCH (17:34)
--- NOTE | 2020-01-01 20:15 | Hospitalist Progress Note ---
Date of Service January 01, 2020 Assessment & Plan (1) Acute NJ: (1) Acute NJ: (2) Acute on chronic systolic CHF (heart failure with reduced ejection fraction): -Patient presenting from home with reports of chest pain, shortness of breath, diaphoresis, nausea -2 recent hospitalizations as outlined in HPI for decompensated systolic CHF -Cardiac cath 12/09/2019 at [facility] [place] demonstrated nonobstructive CAD and patent bypass graft and stents -Troponin 91.3 --> >200 EKG demonstrating paced rhythm Echo: EF 25 to 30%, basal inferior and basal posterior segments are severely hypokinetic to akinetic -CXR showing evidence of pulmonary edema -Placed on BiPAP, nitro drip, Lasix 40 mg IV -Remains chest pain-free Troponin now 100 from more than 200 Continue Coumadin, Plavix, metoprolol Lasix resumed Monitor creatinine (3) Hyperkalemia: Resolved (4) CKD (chronic kidney disease) stage 4, GFR 15-29 ml/min: -Baseline creatinine runs in the low 2's - crea 2.4 monitor while on Lasix -[employer] Experience Expert consulted (5) History of ventricular fibrillation: -S/p AICD -On amiodarone (6) PAF (paroxysmal atrial fibrillation): -Rate controlled on metoprolol, rhythm controlled on amiodarone -Anticoagulated on Coumadin, INR 2.7 (7) Diabetes mellitus, type 2: -Hgb A1c 7.3 11/2019 -NovoLog per protocol while hospitalized (8) DVT prophylaxis: -On Coumadin with INR 2.7 Admission and Anticipated Discharge Date Admission Date: December 30, 2019 Subjective Follow-up for acute NJ, CHF exacerbation Seen resting in bedside chair, comfortable, not in distress States breathing continues to improve Currently on 3 L of oxygen via nasal cannula Denies chest pain since admission No other symptoms Review of Systems Review of Systems: All systems reviewed & are unremarkable except as noted in Subjective Physical Exam Physical Exam: General- oriented x 3, not in distress, speaks in sentences with no effort or accessory muscle use Eyes- anicteric Neck- no JVD Lungs-decreased breath sounds at the bases bilaterally, no crackles or wheezing Heart- normal rate, regular rhythm; no murmurs Abdomen- normal bowel sounds, nondistended, soft, nontender Extremities-mild lower leg edema, no calf tenderness Neuro- alert, oriented x 3; no gross focal neurologic deficits Skin- warm & dry Results & Data Results & Data ([facility]) Vital Signs (Past 12 Hours) Vital Signs Temp Pulse Resp BP Pulse Ox 01/01/20 17:30 79 18 01/01/20 17:00 79 24 01/01/20 16:30 73 20 94 01/01/20 16:28 73 22 123/67 94 01/01/20 16:00 37.3 C 73 25 H 96 01/01/20 15:57 72 25 H 134/75 95 01/01/20 15:30 72 24 96 01/01/20 15:28 72 24 117/69 96 01/01/20 15:00 74 26 H 95 01/01/20 14:58 75 21 124/65 95 01/01/20 14:30 74 26 H 95 01/01/20 14:27 73 24 133/69 94 01/01/20 14:00 72 18 94 01/01/20 13:57 72 25 H 129/65 95 01/01/20 13:30 72 25 H 95 01/01/20 13:27 72 26 H 119/65 95 01/01/20 13:00 77 23 93 01/01/20 12:58 82 25 H 122/60 93 01/01/20 12:30 75 14 93 01/01/20 12:28 74 18 132/75 96 01/01/20 12:00 78 16 93 01/01/20 11:58 78 24 136/71 94 01/01/20 11:30 83 24 91 01/01/20 11:28 76 25 H 132/78 92 01/01/20 11:00 75 28 H 94 01/01/20 10:57 74 20 131/76 93 01/01/20 10:30 73 23 93 01/01/20 10:27 73 26 H 129/67 93 01/01/20 10:00 79 29 H 95 01/01/20 09:57 78 27 H 137/65 96 01/01/20 09:30 78 24 94 01/01/20 09:27 77 26 H 134/65 94 01/01/20 09:00 79 26 H 94 01/01/20 08:57 80 21 137/70 94 01/01/20 08:30 80 23 94 01/01/20 08:27 81 28 H 132/66 94 Laboratory Results Laboratory Results - last 24 hr 01/01/20 01/01/20 01/01/20 04:39 04:39 04:39 WBC 9.75 RBC 3.56 L Hgb 10.8 L Hct 34.7 L MCV 97.5 MCH 30.3 MCHC 31.1 L RDW Std Deviation 49.2 H RDW Coeff of Rosio 13.7 Plt Count 163 MPV 11.1 H Immature Gran % (Auto) 0.2 Neut % (Auto) 70.5 Lymph % (Auto) 16.5 Childress % (Auto) 11.0 Eos % (Auto) 1.6 Baso % (Auto) 0.2 Neut # (Auto) 6.87 H Lymph # (Auto) 1.61 Childress # (Auto) 1.07 H Eos # (Auto) 0.16 Baso # (Auto) 0.02 Immature Gran # (Auto) 0.02 PT 27.2 H INR 2.7 H Sodium 138 Potassium 3.9 Chloride 103 Carbon Dioxide 27 Anion Gap 8.0 BUN 51 H Creatinine 2.40 H Est Cr Clr Drug Dosing 37.6 Est GFR ( Amer) 29.9 Est GFR (Non-Af Amer) 25.8 BUN/Creatinine Ratio 21.3 H Glucose 140 H POC Glucose Calcium 8.6 Phosphorus 3.9 Magnesium 2.0 Troponin I 101.000 H* 01/01/20 01/01/20 01/01/20 07:30 11:26 16:08 WBC RBC Hgb Hct MCV MCH MCHC RDW Std Deviation RDW Coeff of Rosio Plt Count MPV Immature Gran % (Auto) Neut % (Auto) Lymph % (Auto) Childress % (Auto) Eos % (Auto) Baso % (Auto) Neut # (Auto) Lymph # (Auto) Childress # (Auto) Eos # (Auto) Baso # (Auto) Immature Gran # (Auto) PT INR Sodium Potassium Chloride Carbon Dioxide Anion Gap BUN Creatinine Est Cr Clr Drug Dosing Est GFR ( Amer) Est GFR (Non-Af Amer) BUN/Creatinine Ratio Glucose POC Glucose 156 H 214 H 163 H Calcium Phosphorus Magnesium Troponin I
--- NOTE | 2020-01-02 07:57 | XRay Report ---
XR chest 1V portable HISTORY: Shortness of breath. chf exacerbation COMPARISON: Chest 1120. FINDINGS: No pneumothorax. Small bilateral pleural effusions and bibasilar densities persist. Mild in terstitial pulmonary edema has slightly improved. The heart remains enlarged. Poststernotomy changes, left-sided pacemaker, and a cardiac valve prosthesis are again noted. IMPRESSION: 1. Slight improvement in the mild pulmonary edema. 2. Cardiomegaly, small bilateral pleural effusions, and bibasilar densities persist. ACT 112: Negative or not required by law. Electronically signed by: Everett Bell M.D. 01/02/2020 7:55 AM
[2020-01-02] MEDS: INSULIN ASPART 100 UNITS/ML 3 ML PEN SC SCH ×4 (08:24→20:54)
[2020-01-02] MEDS: FERROUS SULFATE 325 MG TAB PO SCH ×2 (08:27→20:53)
[2020-01-02] MEDS: ATORVASTATIN 40 MG TAB PO SCH (08:28)
[2020-01-02] MEDS: METOPROLOL SUCC 50MG EXT REL TAB PO SCH (08:28)
[2020-01-02] MEDS: CLOPIDOGREL BISULFATE 75 MG TAB PO SCH (08:28)
[2020-01-02] MEDS: CYANOCOBALAMIN 500 MCG TABLET (VITAMIN B-12) PO SCH (08:28)
[2020-01-02] MEDS: ISOSORBIDE MONO EXTENDED REL 60 MG TABCR PO SCH (08:29)
[2020-01-02] MEDS: AMIODARONE 200 MG TAB PO SCH ×2 (08:29→20:53)
[2020-01-02] MEDS: CYANOCOBALAMIN 1000 MCG/ML VIAL IM SCH (08:30)
[2020-01-02] MEDS: FUROSEMIDE 40 MG in SYRINGE 0 ML IV SCH ×2 (09:14→16:19)
[2020-01-02 09:58] LABS: INR 3.1 (0.9-1.1); Prothrombin Time 30.8 Seconds (9.0-12.0)
[2020-01-02 10:09] LABS: BUN Creatinine Ratio 21.9 (10-20); Calcium 8.5 mg/dl (8.5-10.1); Creatinine Clr Calc Pharmacy 38.5 ml/min; Est GFR (African American) 30.8; Est GFR (Non-African American) 26.6; Potassium 3.7 mmol/L (3.5-5.1)
--- NOTE | 2020-01-02 12:37 | Cardiology Progress Note ---
Date of Service January 02, 2020 Assessment & Plan (1) Acute MO: Continue Coumadin, Plavix, metoprolol, atorvastatin, isosorbide mononitrate. (2) Acute on chronic HFrEF (heart failure with reduced ejection fraction): 2.1 L of urine output noted yesterday. Remove Matthews catheter today, change IV furosemide dose to 40 mg twice daily, with afternoon dose at 1700 as compared to 2100 since the catheter will be removed. Creatinine has trended down to 2.3. Potassium 3.7, stable having had hyperkalemia earlier this hospital stay. Continue metoprolol. Entresto on hold at present given JUAN. (3) History of ventricular fibrillation: Continue amiodarone 200 mg p.o. twice daily, metoprolol succinate 100 mg daily. Admission and Anticipated Discharge Date Admission Date: December 30, 2019 Subjective Patient seen and examined in follow-up. He feels well. Denies chest discomfort or shortness of breath. He was eating his noontime meal at the time of my assessment. He had been out of bed to the chair yesterday and has been using the commode without any symptoms. Telemetry reveals sinus rhythm with ventricular pacing, no significant arrhythmias. Review of Systems Review of Systems: All systems reviewed & are unremarkable except as noted in HPI & below Physical Exam Physical Exam: Temp Pulse Resp BP Pulse Ox 36.9 C 75 24 124/65 92 01/02/20 11:50 01/02/20 11:50 01/02/20 11:50 01/02/20 11:50 01/02/20 11:50 Constitutional: WD/WN, vitals as above Respiratory: normal respiratory effort, lungs clear to auscultation Cardiovascular: RRR, no murmur, no edema Gastrointestinal (Abdomen): normal bowel sounds, soft, nontender, no hepatosplenomegaly Neurologic: PERRL, EOMI, accommodation nl, no face palsy, no dysarthria Results & Data ([facility]) Vital Signs (Past 12 Hours) Vital Signs Temp Pulse Pulse Resp BP Pulse Ox 01/02/20 11:50 36.9 C 75 24 124/65 92 01/02/20 11:03 94 01/02/20 07:48 37.1 C 82 20 170/76 H 97 01/02/20 05:35 71 22 98 01/02/20 04:00 36.8 C 70 16 141/69 H 97 01/02/20 01:54 72 17 97 Laboratory Results Coagulation INR : 3.1 01/02/20 Range/Units 09:10 PT 30.8 H (9.0-12.0) Seconds Comprehensive Metabolic Panel 01/02/20 Range/Units 09:10 Sodium 136 (136-145) mmol/L Potassium 3.7 (3.5-5.1) mmol/L Chloride 102 (98-107) mmol/L Carbon Dioxide 26 (21-32) mmol/L BUN 51 H (7-18) mg/dl Creatinine 2.34 H (0.6-1.4) mg/dl Glucose 204 H (70-99) mg/dl Calcium 8.5 (8.5-10.1) mg/dl Intake and Output 01/01/20 01/02/20 01/02/20 22:59 06:59 14:59 Intake Total 620 / 1190 150 / 1190 Output Total 600 / 2100 800 / 2100 Balance - / -91 Intake: Oral 620 / 1190 150 / 1190 Output: Urine Amount (Catheter) 600 / 2099 800 / 2100 Matthews/Indwelling 600 / 2099 800 / 2100 Other: Weight 139.7 kg Weight Measurement Method Built in [facility]
[2020-01-02] MEDS: WARFARIN SOD 1.25 MG TAB PO SCH (16:19)
--- NOTE | 2020-01-02 20:24 | Nephrology Progress Note ---
Date of Service January 02, 2020 Assessment & Plan (1) CKD (chronic kidney disease) stage 4, GFR 15-29 ml/min: improving acute kidney injury on CKD4. Baseline creatinine in the lower twos. Creatinine now 2.3, slight improvement from yesterday. Electrolytes are stable. No indication for dialysis. hyperkalemia improved/resolved w/ dialysis diet and diuresis -Continue Lasix for volume management > agree w/ plan to change to po, to remove cordova -Monitor input output and daily BMP. (2) Acute on chronic HFrEF (heart failure with reduced ejection fraction): Patient with worsening CHF likely due to ischemic cardiomyopathy. Cardiology planning cardiac cath after optimizing volume status. Patient is improving with Lasix 40 mg IV twice daily. He was net -2 L yesterday. -Fluid restriction of 1.5 L daily ordered -Low-sodium diet and monitor daily standing weight. -lasix changd to po Admission and Anticipated Discharge Date Admission Date: December 30, 2019 Subjective pt seen on rounds this am at 0915; on 02nc; had been out of bed and walked to commode this am per nursing; no sob, no uncontrolled pain Review of Systems Review of Systems: All systems reviewed & are unremarkable except as noted in HPI & below Physical Exam Constitutional: well developed, well nourished and + obese; no acute distress Eyes: EOM intact bilaterally ENMT: Ears: no external ear abnormality Nose: no external nose abnormality Mouth: + dry oral mucous membranes Neck: no nuchal rigidity Respiratory: normal respiratory effort Auscultation: + diminished lung soun ds and + crackles (bibasilar) Cardiovascular: Rate/Rhythm: regular rate and regular rhythm Extremities: + edema (trace) Gastrointestinal (Abdomen): Inspection/Auscultation: normal bowel sounds Percussion/Palpation: abdomen soft; abdomen nontender Musculoskeletal: Extremities: strength 5/5 throughout Skin: no rashes, warm and dry Neurologic: rivera, fluent speech, no tremor Genitourinary: cordova w/ some urine Results & Data ([facility]) Vital Signs (Past 12 Hours) Vital Signs Temp Pulse Resp BP Pulse Ox 01/02/20 16:29 37.1 C 82 18 122/69 92 01/02/20 11:50 36.9 C 75 24 124/65 92 01/02/20 11:03 94 Laboratory Results 01/01/20 04:39 10/12/20 09:10
--- NOTE | 2020-01-02 21:45 | Hospitalist Progress Note ---
Date of Service Delayed entry Date of service noted below January 02, 2020 Assessment & Plan (1) Acute MO: (1) Acute MO: (2) Acute on chronic systolic CHF (heart failure with reduced ejection fraction): -Patient presenting from home with reports of chest pain, shortness of breath, diaphoresis, nausea -2 recent hospitalizations as outlined in HPI for decompensated systolic CHF -Cardiac cath 12/09/2019 at [facility] [place] demonstrated nonobstructive CAD and patent bypass graft and stents -Troponin 91.3 --> >200 EKG demonstrating paced rhythm Echo: EF 25 to 30%, basal inferior and basal posterior segments are severely hypokinetic to akinetic -CXR showing evidence of pulmonary edema -Placed on BiPAP, nitro drip, Lasix 40 mg IV -Remains chest pain-free Troponin now 100 from more than 200 Remains stable overall Continue Coumadin, Plavix, metoprolol Plan Lasix IV, diuresing well Monitor creatinine (3) Hyperkalemia: Resolved (4) CKD (chronic kidney disease) stage 4, GFR 15-29 ml/min: -Baseline creatinine runs in the low 2's - crea 2.4 monitor while on Lasix -General Production Laborer consulted (5) History of ventricular fibrillation: -S/p AICD -On amiodarone (6) PAF (paroxysmal atrial fibrillation): -Rate controlled on metoprolol, rhythm controlled on amiodarone -Anticoagulated on Coumadin, INR 2.7 (7) Diabetes mellitus, type 2: -Hgb A1c 7.3 11/2019 -NovoLog per protocol while hospitalized (8) DVT prophylaxis: -On Coumadin with INR 2.7 Admission and Anticipated Discharge Date Admission Date: December 30, 2019 Subjective Follow-up for ST elevation MO, CHF exacerbation Seen resting in bed, sitting up, comfortable, not in distress States breathing is okay, on 2 L of nasal cannula Denies recurrence of chest pain No abdominal pain, nausea vomiting, palpitations, dizziness No other symptoms Review of Systems Review of Systems: All systems reviewed & are unremarkable except as noted in Subjective Physical Exam Physical Exam: General- oriented x 3, not in distress, speaks in sentences wit h no effort or accessory muscle use Eyes- anicteric Neck- no JVD Lungs-mild crackles bilateral bases, no wheezing Heart- normal rate, regular rhythm; no murmurs Abdomen- normal bowel sounds, nondistended, soft, nontender Extremities-grade 1-2 lower leg edema, no calf tenderness Neuro- alert, oriented x 3; no gross focal neurologic deficits Skin- warm & dry Results & Data Results & Data ([facility]) Vital Signs (Past 12 Hours) Vital Signs Temp Pulse Resp BP Pulse Ox 01/02/20 21:01 36.9 C 80 20 126/61 98 01/02/20 16:29 37.1 C 82 18 122/69 92 01/02/20 11:50 36.9 C 75 24 124/65 92 01/02/20 11:03 94 Laboratory Results Coagulation 01/03/20 Range/Units 04:06 PT 31.4 H (9.0-12.0) Seconds Comprehensive Metabolic Panel 01/03/20 Range/Units 04:06 Sodium 135 L (136-145) mmol/L Potassium 3.8 (3.5-5.1) mmol/L Chloride 101 (98-107) mmol/L Carbon Dioxide 27 (21-32) mmol/L BUN 56 H (7-18) mg/dl Creatinine 2.36 H (0.6-1.4) mg/dl Glucose 154 H (70-99) mg/dl Calcium 8.4 L (8.5-10.1) mg/dl Intake and Output 01/03/20 01/03/20 01/03/20 06:59 14:59 22:59 Intake Total 100 / 700 395 / 695 300 / 695 Output Total 475 / 1850 300 / 300 Balance -375 / -1150 395 / 395 0 / 395 Intake: Oral 100 / 700 395 / 695 300 / 695 Output: Urine 475 / 675 300 / 300 Other: Weight 137.1 kg Weight Measurement Method Built in [facility]
[2020-01-03 05:01] LABS: INR 3.2 (0.9-1.1); Prothrombin Time 31.4 Seconds (9.0-12.0)
[2020-01-03 05:04] LABS: BUN Creatinine Ratio 23.7 (10-20); Calcium 8.4 mg/dl (8.5-10.1); Creatinine Clr Calc Pharmacy 38.2 ml/min; Est GFR (African American) 30.5; Est GFR (Non-African American) 26.3; Potassium 3.8 mmol/L (3.5-5.1)
--- NOTE | 2020-01-03 08:12 | Nephrology Progress Note ---
Date of Service January 03, 2020 Assessment & Plan (1) CKD (chronic kidney disease) stage 4, GFR 15-29 ml/min: improving/resolving acute kidney injury on CKD4. Baseline creatinine in the lower twos. Creatinine now 2.4, plateau'd for several days. Electrolytes are stable. No indication for dialysis. hyperkalemia improved/resolved w/ dialysis diet and diuresis -Continue current po Lasix for volume management -Monitor input output and daily BMP. (2) Acute on chronic HFrEF (heart failure with reduced ejection fraction): Patient with worsening CHF likely due to ischemic cardiomyopathy. Cardiology planning cardiac cath after optimizing volume status. Patient is improving with Lasix 40 mg IV twice daily. He was net -2 L yesterday. -Fluid restriction of 1.5 L daily to cont -Low-sodium diet and monitor daily standing weight. -lasix now to cont po Admission and Anticipated Discharge Date Admission Date: December 30, 2019 Subjective 1.2 L negative on the day yesterday. sitting up in chair on RA this am at 0845 on rounds. tolerating po; edema ok; marked exertional sob; c/o L knee and BL foot pain Review of Systems Review of Systems: All systems reviewed & are unremarkable except as noted in HPI & below Physical Exam Constitutional: well developed, well nourished and + obese; no acute distress Eyes: EOM intact bilaterally ENMT: Ears: no external ear abnormality Nose: no external nose abnormality Mouth: + dry oral mucous membranes Neck: no nuchal rigidity Respiratory: normal respiratory effort Auscultation: lungs clear to auscult ation bilaterally and + diminished lung sounds Cardiovascular: Rate/Rhythm: regular rate and regular rhythm Extremities: + edema (trace) Gastrointestinal (Abdomen): Inspection/Auscultation: normal bowel sounds Percussion/Palpation: abdomen soft; abdomen nontender Musculoskeletal: Extremities: strength 5/5 throughout Skin: no rashes, warm and dry Neurologic: no tremor, rivera, fluent speech Psychiatric: Orientation: alert and oriented x 3 Speech: normal rate/rhythm/volume of speech Results & Data ([facility]) Vital Signs (Past 12 Hours) Vital Signs Temp Pulse Pulse Resp BP BP Pulse Ox 01/03/20 07:55 36.7 C 83 20 130/72 94 01/03/20 05:58 77 24 156/64 H 91 01/03/20 04:55 82 22 93 10/13/20 04:00 36.8 C 80 20 154/76 H 95 01/03/20 02:16 77 14 96 01/03/20 00:26 78 19 146/68 H 92 01/03/20 00:15 36.9 C 78 18 140/70 96 01/02/20 21:49 81 24 93 01/02/20 21:01 36.9 C 80 20 126/61 98 01/02/20 20:59 80 25 H 126/61 95 Laboratory Results 01/01/20 04:39 01/03/20 04:06 Diagnostic Findings cxr 1. Slight improvement in the mild pulmonary edema. 2. Cardiomegaly, small bilateral pleural effusions, and bibasilar densities persist.
[2020-01-03] MEDS: CYANOCOBALAMIN 500 MCG TABLET (VITAMIN B-12) PO SCH (08:18)
[2020-01-03] MEDS: ATORVASTATIN 40 MG TAB PO SCH (08:18)
[2020-01-03] MEDS: METOPROLOL SUCC 50MG EXT REL TAB PO SCH (08:18)
[2020-01-03] MEDS: CLOPIDOGREL BISULFATE 75 MG TAB PO SCH (08:19)
[2020-01-03] MEDS: ISOSORBIDE MONO EXTENDED REL 60 MG TABCR PO SCH (08:19)
[2020-01-03] MEDS: FUROSEMIDE 40 MG in SYRINGE 0 ML IV SCH ×2 (08:20→16:06)
[2020-01-03] MEDS: INSULIN ASPART 100 UNITS/ML 3 ML PEN SC SCH ×4 (08:27→20:30)
[2020-01-03] MEDS: AMIODARONE 200 MG TAB PO SCH ×2 (08:45→20:30)
[2020-01-03] MEDS: FERROUS SULFATE 325 MG TAB PO SCH ×2 (08:45→20:30)
--- NOTE | 2020-01-03 15:06 | Cardiology Progress Note ---
Date of Service January 03, 2020 Assessment & Plan (1) Acute [place]: (2) History of ventricular fibrillation: (3) Acute on chronic HFrEF (heart failure with reduced ejection fraction): Continue current medication, continue current dose of furosemide. Agree with physical therapy, Occupational Therapy assessment. INR acceptable 3.2. Admission and Anticipated Discharge Date Admission Date: December 30, 2019 Subjective Patient seen in follow-up. He denies any chest discomfort or shortness of breath. His most significant complaint is pain in his feet and ankles when he tries to stand and he feels unsteady. Telemetry reveals stable sinus rhythm with ventricular paced QRS complexes, no ventricular arrhythmias. Review of Systems Review of Systems: All systems reviewed & are unremarkable except as noted in HPI & below Physical Exam Physical Exam: Temp Pulse Resp BP Pulse Ox 37.7 C H 80 16 133/61 95 01/03/20 12:04 01/03/20 12:04 01/03/20 12:04 01/03/20 12:04 01/03/20 12:04 Constitutional: WD/WN, vitals as above Respiratory: normal respiratory effort, lungs clear to auscultation Chest (Breasts): Additional Comments: Left infraclavicular pacemaker pocket clean dry and intact Gastrointestinal (Abdomen): normal bowel sounds, soft, nontender, no hepatosplenomegaly Neurologic: PERRL, EOMI, accommodation nl, no face palsy, no dysarthria Results & Data ([facility]) Vital Signs (Past 12 Hours) Vital Signs Temp Pulse Pulse Resp BP BP Pulse Ox 01/03/20 12:04 37.7 C H 80 16 133/61 95 01/03/20 09:00 77 01/03/20 08:00 77 01/03/20 07:55 36.7 C 83 20 130/72 94 01/03/20 05:58 77 24 156/64 H 91 01/03/20 04:55 82 22 93 01/03/20 04:00 36.8 C 80 20 154/76 H 95 Laboratory Results Coagulation 01/03/20 Range/Units 04:06 PT 31.4 H (9.0-12.0) Seconds Comprehensive Metabolic Panel 01/03/20 Range/Units 04:06 Sodium 135 L (136-145) mmol/L Potassium 3.8 (3.5-5.1) mmol/L Chloride 101 (98-107) mmol/L Carbon Dioxide 27 (21-32) mmol/L BUN 56 H (7-18) mg/dl Creatinine 2.36 H (0.6-1.4) mg/dl Glucose 154 H (70-99) mg/dl Calcium 8.4 L (8.5-10.1) mg/dl Intake and Output 01/03/20 01/03/20 01/03/20 06:59 14:59 22:59 Intake Total 100 / 700 395 / 395 Output Total 475 / 1850 Balance -375 / -1150 395 / 395 Intake: Oral 100 / 700 395 / 395 Output: Urine 475 / 675 Other: Weight 137.1 kg [facility]
[2020-01-03] MEDS: WARFARIN SOD 2.5 MG TAB PO SCH (15:20)
--- NOTE | 2020-01-03 21:32 | Hospitalist Progress Note ---
Date of Service January 03, 2020 Assessment & Plan (1) Acute OR: (1) Acute OR: (2) Acute on chronic systolic CHF (heart failure with reduced ejection fraction): -Patient presenting from home with reports of chest pain, shortness of breath, diaphoresis, nausea -2 recent hospitalizations as outlined in HPI for decompensated systolic CHF -[place] [facility] [place] nonobstructive CAD and patent bypass graft and stents -Troponin 91.3 --> >200 EKG demonstrating paced rhythm Echo: EF 25 to 30%, basal inferior and basal posterior segments are severely hypokinetic to akinetic -CXR showing evidence of pulmonary edema -Placed on BiPAP, nitro drip, Lasix 40 mg IV -Remains chest pain-free since admission Troponin now 100 from more than 200 Continue Coumadin, Plavix, metoprolol diuresing well now off O2 supplement continue IV Lasix Monitor creatinine (3) Hyperkalemia: Resolved (4) CKD (chronic kidney disease) stage 4, GFR 15-29 ml/min: -Baseline creatinine runs in the low 2's - crea 2.4 monitor while on Lasix -School Laboratory Technician consulted (5) History of ventricular fibrillation: -S/p AICD -On amiodarone (6) PAF (paroxysmal atrial fibrillation): -Rate controlled on metoprolol, rhythm controlled on amiodarone -Anticoagulated on Coumadin, INR 3.2 (7) Diabetes mellitus, type 2: -Hgb A1c 7.3 11/2019 -NovoLog per protocol while hospitalized (8) DVT prophylaxis: -On Coumadin with INR 3.2 Disposition lives alone continue PT/OT may need Rehab Admission and Anticipated Discharge Date Admission Date: December 30, 2019 Subjective ff up for acute OR, CHF exacerbation seen sitting up in bed, comfortable, watching TV, in good spirits States he continues to feel improved Off oxygen supplement, comfortable Had sharp left chest wall pain, localized with one finger near the axillary region No other symptoms Review of Systems Review of Systems: All systems reviewed & are unremarkable except as noted in Subjective Physical Exam Physical Exam: General- oriented x 3, not in distress, speaks in sentences with no effort or accessory muscle use Eyes- anicteric Neck- no JVD Lungs-mild crackles at the bases, no wheezing Heart- normal rate, regular rhythm; no murmurs Abdomen- normal bowel sounds, nondistended, soft, nontender Extremities-grade 1 lower leg edema, no erythema or tenderness Neuro- alert, oriented x 3; no gross focal neurologic deficits Skin- warm & dry Results & Data Results & Data ([facility]) Vital Signs (Past 12 Hours) Vital Signs Temp Pulse Pulse Resp BP BP Pulse Ox 01/03/20 20:21 37.1 C 77 18 100/68 95 01/03/20 16:00 77 01/03/20 15:42 37.0 C 76 23 134/76 94 01/03/20 12:04 37.7 C H 80 16 133/61 95 Laboratory Results Laboratory Results - last 24 hr 01/03/20 01/03/20 01/03/20 04:06 04:06 07:28 PT 31.4 H INR 3.2 H Sodium 135 L Potassium 3.8 Chloride 101 Carbon Dioxide 27 Anion Gap 7.0 BUN 56 H Creatinine 2.36 H Est Cr Clr Drug Dosing 38.2 Est GFR ( Amer) 30.5 Est GFR (Non-Af Amer) 26.3 BUN/Creatinine Ratio 23.7 H Glucose 154 H POC Glucose 168 H Calcium 8.4 L 01/03/20 01/03/20 01/03/20 11:16 16:14 20:28 PT INR Sodium Potassium Chloride Carbon Dioxide Anion Gap BUN Creatinine Est Cr Clr Drug Dosing Est GFR ( Amer) Est GFR (Non-Af Amer) BUN/Creatinine Ratio Glucose POC Glucose 222 H 206 H 183 H Calcium
[2020-01-04 05:25] LABS: INR 3.5 (0.9-1.1); Prothrombin Time 34.5 Seconds (9.0-12.0)
[2020-01-04 05:31] LABS: BUN Creatinine Ratio 23.8 (10-20); Calcium 8.5 mg/dl (8.5-10.1); Creatinine Clr Calc Pharmacy 40.2 ml/min; Est GFR (African American) 32.9; Est GFR (Non-African American) 28.3; Potassium 3.5 mmol/L (3.5-5.1)
--- NOTE | 2020-01-04 07:42 | Nephrology Progress Note ---
Date of Service January 04, 2020 Assessment & Plan (1) CKD (chronic kidney disease) stage 4, GFR 15-29 ml/min: improving/resolving acute kidney injury on CKD4. Baseline creatinine in the lower twos, now back to baseline after had been plateau'd for several days. Electrolytes are stable though K on lower side and will replete. No indication for dialysis. hyperkalemia improved/resolved w/ dialysis diet and diuresis -Continue current IV Lasix for volume management >K supplemented >> started standing K 40 mEq po daily -Monitor input output and daily BMP. (2) Acute on chronic HFrEF (heart failure with reduced ejection fraction): acute on chronic HFrEF after recent ischemic VT and with concern for/hx of v fib. no current plan for cardiac cath but follow for this changing plan. Patient is stable with Lasix 40 mg IV twice daily. He was net -1.2 L yesterday (and again reading incomplete). -Fluid restriction of 1.5 L daily to cont -Low-sodium diet and monitor daily standing weight. -lasix now to cont iv -01/03 was first STANDING wt recently > 138.3 kg Admission and Anticipated Discharge Date Admission Date: December 30, 2019 Subjective some incontinence, so I/O incomplete. no acute interval events. c/o ongoing foot/knee pain, worse w/ getting up to ambulate; no sob worsening; no cp; pt denies voiding concerns to me though nursing comments that pt may have some retention Review of Systems Review of Systems: All systems reviewed & are unremarkable except as noted in HPI & below Physical Exam Constitutional: well developed, well nourished and + obese; no acute distress resting comfortably in bed Eyes: EOM intact bilaterally ENMT: Ears: no external ear abnormality Nose: no external nose abnormality Mouth: + dry oral mucous membranes Neck: no nuchal rigidity Respiratory: normal respiratory effort Auscultation: lungs clear to auscultation bilaterally and + diminished lung sounds Cardiovascular: Rate/Rhythm: regular rate and regular rhythm Extremities: no edema Gastrointestinal (Abdomen): Inspection/Auscultation: normal bowel sounds Percussion/Palpation: abdomen soft; abdomen nontender Musculoskeletal: Extremities: strength 5/5 throughout Skin: no rashes, warm and dry Neurologic: rivera, fluent speech, no tremor Psychiatric: Orientation: alert and oriented x 3 Speech: normal rate/rhythm/volume of speech Results & Data ([facility]) Vital Signs (Past 12 Hours) Vital Signs Temp Pulse Pulse Resp BP BP Pulse Ox 01/04/20 04:00 36.9 C 73 20 135/68 96 01/04/20 03:05 75 18 96 01/04/20 00:16 36.8 C 72 20 132/65 97 01/03/20 23:00 77 18 96 01/03/20 20:21 37.1 C 77 18 100/68 95 Laboratory Results 01/01/20 04:39 01/04/20 04:46
[2020-01-04] MEDS: INSULIN ASPART 100 UNITS/ML 3 ML PEN SC SCH ×4 (08:00→20:33)
[2020-01-04] MEDS: ISOSORBIDE MONO EXTENDED REL 60 MG TABCR PO SCH (08:01)
[2020-01-04] MEDS: AMIODARONE 200 MG TAB PO SCH ×2 (08:01→21:06)
[2020-01-04] MEDS: FERROUS SULFATE 325 MG TAB PO SCH ×2 (08:01→20:32)
[2020-01-04] MEDS: ATORVASTATIN 40 MG TAB PO SCH (08:02)
[2020-01-04] MEDS: CLOPIDOGREL BISULFATE 75 MG TAB PO SCH (08:02)
[2020-01-04] MEDS: CYANOCOBALAMIN 500 MCG TABLET (VITAMIN B-12) PO SCH (08:02)
[2020-01-04] MEDS: METOPROLOL SUCC 50MG EXT REL TAB PO SCH (08:02)
[2020-01-04] MEDS: FUROSEMIDE 40 MG in SYRINGE 0 ML IV SCH ×2 (08:04→17:55)
[2020-01-04] MEDS: POTASSIUM CHLORIDE 20 MEQ TABCR PO SCH (08:04)
[2020-01-04] MEDS ORDERED: POLYETHYLENE (MIRALAX) 17 GM PACK PO PRN (11:55)
--- NOTE | 2020-01-04 12:07 | Cardiology Progress Note ---
Date of Service January 04, 2020 Assessment & Plan (1) Acute on chronic HFrEF (heart failure with reduced ejection fraction): (2) Acute [place]: (3) PAF (paroxysmal atrial fibrillation): Coumadin for INR of 3.5 today. Potassium level of 3.5 today, creatinine 2.2. Agree with cautious potassium supplementation, with noted hyperkalemia earlier this hospital stay. Continue current dose of IV diuretics. Continue physical therapy advance activity as tolerated. Admission and Anticipated Discharge Date Admission Date: December 30, 2019 Subjective Patient seen in follow-up. Denies chest discomfort or shortness of breath, ongoing foot pain. Progressing with therapy. Telemetry reveals sinus rhythm with ventricular pacing. Review of Systems Review of Systems: All systems reviewed & are unremarkable except as noted in HPI & below Physical Exam 2 Physical Exam: Temp Pulse Resp BP Pulse Ox 37.6 C H 77 25 H 157/77 H 95 01/04/20 07:39 01/04/20 09:54 01/04/20 07:39 01/04/20 07:39 01/04/20 09:29 Constitutional: WD/WN, vitals as above Respiratory: Mildly decreased breath sounds at the bases bilaterally Cardiovascular: RRR, no murmur, no edema Gastrointestinal (Abdomen): normal bowel sounds, soft, nontender, no hepatosplenomegaly Neurologic: PERRL, EOMI, accommodation nl, no face palsy, no dysarthria Results & Data ([facility]) Vital Signs (Past 12 Hours) Vital Signs Temp Pulse Pulse Resp BP BP BP 01/04/20 09:54 77 01/04/20 09:29 01/04/20 07:39 37.6 C H 77 25 H 157/77 H 01/04/20 04:00 36.9 C 73 20 135/68 01/04/20 03:05 75 18 01/04/20 00:16 36.8 C 72 20 132/65 Pulse Ox Pulse Ox Pulse Ox 01/04/20 09:54 01/04/20 09:29 91 95 01/04/20 07:39 100 01/04/20 04:00 96 01/04/20 03:05 96 01/04/20 00:16 97 Laboratory Results Coagulation 01/04/20 Range/Units 04:46 PT 34.5 H (9.0-12.0) Seconds Comprehensive Metabolic Panel 01/04/20 Range/Units 04:46 Sodium 137 (136-145) mmol/L Potassium 3.5 (3.5-5.1) mmol/L Chloride 102 (98-107) mmol/L Carbon Dioxide 28 (21-32) mmol/L BUN 53 H (7-18) mg/dl Creatinine 2.22 H (0.6-1.4) mg/dl Glucose 148 H (70-99) mg/dl Calcium 8.5 (8.5-10.1) mg/dl Intake and Output 01/03/20 01/04/20 01/04/20 22:59 06:59 14:59 Intake Total 300 / 695 Output Total 300 / 300 Balance 0 / 395 Intake: Oral 300 / 695 Output: Urine 300 / 300 Other: Weight 138.3 kg Weight Measurement Method Standing Scale
[2020-01-04] MEDS: DOCUSATE SODIUM 100 MG CAP PO SCH (12:18)
[2020-01-04] MEDS ORDERED: INSULIN GLARGINE SOLOSTAR 100 UNITS/ML 3 ML PEN SC ONE (12:30)
--- NOTE | 2020-01-04 20:56 | Hospitalist Progress Note ---
Date of Service January 04, 2020 Assessment & Plan (1) Acute UT: (1) Acute UT: (2) Acute on chronic systolic CHF (heart failure with reduced ejection fraction): -admitted with complain of chest pain, shortness of breath, diaphoresis, nausea -Cardiac cath 12/09/2019 at [facility] [place] demonstrated nonobstructive CAD and patent bypass graft and stents -Troponin 91.3 --> >200 EKG demonstrating paced rhythm Echo: EF 25 to 30%, basal inferior and basal posterior segments are severely hypokinetic to akinetic cardiology following , appreciate input -Remains chest pain-free since admission Troponin now 100 from more than 200 Continue Coumadin, Plavix, metoprolol (4) CKD (chronic kidney disease) stage 4, GFR 15-29 ml/min: -Baseline creatinine runs in the low 2's - crea 2.4 monitor while on Lasix -Ceo [employer] consulted (5) History of ventricular fibrillation: -S/p AICD -On amiodarone (6) PAF (paroxysmal atrial fibrillation): -Rate controlled on metoprolol, rhythm controlled on amiodarone -Anticoagulated on Coumadin, (7) Diabetes mellitus, type 2: -Hgb A1c 7.3 11/2019 -NovoLog per protocol while hospitalized (8) DVT prophylaxis: -On Coumadin Disposition lives alone Pt/OT eval Admission and Anticipated Discharge Date Admission Date: December 30, 2019 Subjective Patient seen in follow-up. Denies chest discomfort or shortness of breath, appears comfortable Physical Exam Constitutional: WD/WN, vitals as above Eyes: PERRL, conjunctivae normal, anicteric sclerae ENMT: external ear and nose normal, oropharynx normal Neck: trachea midline, no thyromegaly Respiratory: normal respiratory effort, lungs clear to auscultation Cardiovascular: RRR, no murmur, no edema Gastrointestinal (Abdomen): normal bowel sounds, soft, nontender, no hepatosplenomegaly Musculoskeletal: no cyanosis or clubbing, extremities motor strength 5/5 Skin: no rashes, warm and dry Neurologic: PERRL, EOMI, accommodation nl, no face palsy, no dysarthria Psychiatric: A+Ox3, euthymic affect Results & Data Results & Data ([facility]) Vital Signs (Past 12 Hours) Vital Signs Temp Pulse Resp BP Pulse Ox Pulse Ox Pulse Ox 01/04/20 16:27 36.9 C 69 24 126/68 97 01/04/20 15:56 77 01/04/20 12:26 36.7 C 80 22 131/73 94 01/04/20 09:54 77 01/04/20 09:29 91 95
[2020-01-05 07:44] LABS: INR 4.4 (0.9-1.1); Prothrombin Time 42.7 Seconds (9.0-12.0)
[2020-01-05 08:00] LABS: Calcium 9.2 mg/dl (8.5-10.1); Creatinine Clr Calc Pharmacy 41.6 ml/min; Est GFR (African American) 33.8; Est GFR (Non-African American) 29.1; Potassium 3.8 mmol/L (3.5-5.1)
[2020-01-05] MEDS: AMIODARONE 200 MG TAB PO SCH ×2 (08:02→20:30)
[2020-01-05] MEDS: METOPROLOL SUCC 50MG EXT REL TAB PO SCH (08:02)
[2020-01-05] MEDS: FERROUS SULFATE 325 MG TAB PO SCH ×2 (08:02→20:30)
[2020-01-05] MEDS: CLOPIDOGREL BISULFATE 75 MG TAB PO SCH (08:02)
[2020-01-05] MEDS: ISOSORBIDE MONO EXTENDED REL 60 MG TABCR PO SCH (08:02)
[2020-01-05] MEDS: INSULIN GLARGINE SOLOSTAR 100 UNITS/ML 3 ML PEN SC SCH (08:02)
[2020-01-05] MEDS: POTASSIUM CHLORIDE 20 MEQ TABCR PO SCH (08:02)
[2020-01-05] MEDS: DOCUSATE SODIUM 100 MG CAP PO SCH (08:02)
[2020-01-05] MEDS: FUROSEMIDE 40 MG in SYRINGE 0 ML IV SCH ×2 (08:03→17:20)
[2020-01-05] MEDS: ATORVASTATIN 40 MG TAB PO SCH (08:03)
[2020-01-05] MEDS: CYANOCOBALAMIN 500 MCG TABLET (VITAMIN B-12) PO SCH (08:04)
[2020-01-05] MEDS: INSULIN ASPART 100 UNITS/ML 3 ML PEN SC SCH ×4 (08:05→20:32)
--- NOTE | 2020-01-05 10:17 | Nephrology Progress Note ---
Date of Service January 05, 2020 Assessment & Plan (1) CKD (chronic kidney disease) stage 4, GFR 15-29 ml/min: improving/resolving acute kidney injury on CKD4. Baseline creatinine in the lower twos, remains at baseline after had been plateau'd for several days. Electrolytes are stable though K on lower side and will replete. No indication for dialysis. hyperkalemia improved/resolved w/ dialysis diet and diuresis -Continue current IV Lasix for volume management >> cont standing K 40 mEq po daily -Monitor input output and daily BMP. (2) Acute on chronic HFrEF (heart failure with reduced ejection fraction): acute on chronic HFrEF after recent ischemic PA and with concern for/hx of v fib. no current plan for cardiac cath but follow for this changing plan. Patient is stable with Lasix 40 mg IV twice daily. He was net -1.2 L yesterday (and again reading incomplete). -Fluid restriction of 1.5 L daily to cont -Low-sodium diet and monitor daily standing weight. -lasix now to cont iv -01/03 was first STANDING wt recently > 138.3 kg; will ask again for standing wts; I and o incomplete Admission and Anticipated Discharge Date Admission Date: December 30, 2019 Subjective moved out of ICU; seen on rounds 0720; no worsening sob but still much exertional sob; tolerating po Review of Systems Review of Systems: All systems reviewed & are unremarkable except as noted in HPI & below Physical Exam Constitutional: well developed, well nourished and + obese; no acute distress sitting on side of bed on RA Eyes: EOM intact bilaterally ENMT: Ears: no external ear abnormality Nose: no external nose abnormality Mouth: + dry oral mucous membranes Neck: no nuchal rigidity Respiratory: normal respiratory effort Auscultation: lungs clear to auscultation bilaterally and + diminished lung sounds Cardiovascular: Rate/Rhythm: regular rate and regular rhythm Extremities: + edema (trace BL edema) Gastrointestinal (Abdomen): Inspection/Auscultation: normal bowel sounds Percussion/Palpation: abdomen soft; abdomen nontender Musculoskeletal: Extremities: strength 5/5 throughout Skin: no rashes, warm and dry Psychiatric: Orientation: alert and oriented x 3 Speech: normal rate/rhythm/volume of speech Genitourinary: no cordova Results & Data ([facility]) Vital Signs (Past 12 Hours) Vital Signs Temp Pulse Pulse Resp BP BP Pulse Ox 01/05/20 07:07 36.7 C 73 19 127/79 95 01/05/20 03:53 36.4 C L 70 18 129/77 96 01/05/20 03:08 71 20 98 01/05/20 00:15 36.6 C 71 18 140/84 96 01/04/20 23:23 74 16 96 01/04/20 23:00 71 01/04/20 22:47 82 Laboratory Results 01/01/20 04:39 01/05/20 07:09
--- NOTE | 2020-01-05 12:27 | Cardiology Progress Note ---
Date of Service January 05, 2020 Assessment & Plan (1) Acute HI: (2) Acute on chronic HFrEF (heart failure with reduced ejection fraction): (3) PAF (paroxysmal atrial fibrillation): (4) History of ventricular fibrillation: Creatinine improved to 2.17, potassium 3.8, INR 4.4 today. Discontinue IV furosemide after this afternoon's dose, and transition him to his outpatient dose of furosemide 80 mg daily in the morning to start tomorrow. Continue cautious potassium supplementation given presentation with hyperkalemia earlier this hospital stay. We will consider reinitiating his lisinopril tomorrow. Continue clopidogrel. Coumadin on hold for elevated INR. Start Cymbalta 20 mg daily for suspected neuropathic/neuropathy foot pain. This does not interact with his amiodarone or other cardiac medications, it is typically not implicated in fluid retention to the degree that gabapentin is associated with fluid retention. Admission and Anticipated Discharge Date Admission Date: December 30, 2019 Subjective Patient seen in cardiology follow-up. He denies chest discomfort or shortness of breath. Telemetry reveals sinus rhythm with ventricular pacing in the range of 67 bpm. No ventricular arrhythmias noted. Review of Systems Review of Systems: All systems reviewed & are unremarkable except as noted in HPI & below Physical Exam Physical Exam: Temp Pulse Resp BP Pulse Ox 37.0 C 75 18 125/77 97 01/05/20 11:50 01/05/20 11:50 01/05/20 11:50 01/05/20 11:50 01/05/20 11:50 Constitutional: WD/WN, vitals as above Respiratory: normal respiratory effort, lungs clear to auscultation Cardiovascular: RRR, no murmur, no edema Neurologic: PERRL, EOMI, accommodation nl, no face palsy, no dysarthria Results & Data ([facility]) Vital Signs (Past 12 Hours) Vital Signs Temp Pulse Pulse Resp BP BP Pulse Ox 01/05/20 11:50 37.0 C 75 18 125/77 97 01/05/20 07:07 36.7 C 73 19 127/79 95 01/05/20 03:53 36.4 C L 70 18 129/77 96 01/05/20 03:08 71 20 98
[2020-01-05] MEDS: DULoxetine HCL 20 MG CAP PO SCH (13:39)
--- NOTE | 2020-01-05 19:27 | Hospitalist Progress Note ---
Date of Service January 05, 2020 Assessment & Plan (1) Acute WV: (1) Acute WV: (2) Acute on chronic systolic CHF (heart failure with reduced ejection fraction): -admitted with complain of chest pain, shortness of breath, diaphoresis, nausea -Cardiac cath 12/09/2019 at [facility] [place] demonstrated nonobstructive CAD and patent bypass graft and stents -Troponin 91.3 --> >200 EKG demonstrating paced rhythm Echo: EF 25 to 30%, basal inferior and basal posterior segments are severely hypokinetic to akinetic cardiology following , appreciate input pt is continued with Aspirin , Plavix , beta varsha coumadin on hold for elevated INR (4) CKD (chronic kidney disease) stage 4, GFR 15-29 ml/min: cr improved to approx baseline -Nephrology recommends : -continue lasix 80 mg daily and potassium 10 mEQ daily at discharge -hold lisinopril at discharge -bmp within a week of hospital discharge -continue fluid limit 1.5L/50 oz daily at discharge (5) History of ventricular fibrillation: -S/p AICD -On amiodarone (6) PAF (paroxysmal atrial fibrillation): -Rate controlled on metoprolol, rhythm controlled on amiodarone -Anticoagulated on Coumadin-on hold for elevated INR (7) Diabetes mellitus, type 2: -Hgb A1c 7.3 11/2019 -NovoLog per protocol while hospitalized (8) DVT prophylaxis: -INR elevated Admission and Anticipated Discharge Date Admission Date: December 30, 2019 Subjective doing very well sitting up on edge of bed ambulating independently , no complain of sob , no fever or chills Physical Exam Constitutional: WD/WN, vitals as above Eyes: PERRL, conjunctivae normal, anicteric sclerae ENMT: external ear and nose normal, oropharynx normal Neck: trachea midline, no thyromegaly Respiratory: normal respiratory effort, lungs clear to auscultation Cardiovascular: RRR, no murmur, no edema Gastrointestinal (Abdomen): normal bowel sounds, soft, nontender, no hepatosplenomegaly Musculoskeletal: no cyanosis or clubbing, extremities motor strength 5/5 Skin: no rashes, warm and dry Neurologic: PERRL, EOMI, accommodation nl, no face palsy, no dysarthria Psychiatric: A+Ox3, euthymic affect Results & Data Results & Data ([facility]) Vital Signs (Past 12 Hours) Vital Signs Temp Pulse Pulse Resp BP Pulse Ox 01/05/20 16:00 36.5 C 78 01/05/20 15:35 36.6 C 75 24 127/78 96 01/05/20 11:50 37.0 C 75 18 125/77 97
[2020-01-06 07:58] LABS: INR 3.9 (0.9-1.1); Prothrombin Time 37.9 Seconds (9.0-12.0)
[2020-01-06 08:11] LABS: BUN Creatinine Ratio 28.1 (10-20); Calcium 9.4 mg/dl (8.5-10.1); Creatinine Clr Calc Pharmacy 42.9 ml/min; Est GFR (African American) 35.5; Est GFR (Non-African American) 30.7; Potassium 3.8 mmol/L (3.5-5.1)
[2020-01-06] MEDS: AMIODARONE 200 MG TAB PO SCH ×2 (08:15→20:20)
[2020-01-06] MEDS: ISOSORBIDE MONO EXTENDED REL 60 MG TABCR PO SCH (08:15)
[2020-01-06] MEDS: FERROUS SULFATE 325 MG TAB PO SCH ×2 (08:15→20:21)
[2020-01-06] MEDS: FUROSEMIDE 80 MG TAB PO SCH (08:16)
[2020-01-06] MEDS: CYANOCOBALAMIN 500 MCG TABLET (VITAMIN B-12) PO SCH (08:16)
[2020-01-06] MEDS: INSULIN GLARGINE SOLOSTAR 100 UNITS/ML 3 ML PEN SC SCH (08:16)
[2020-01-06] MEDS: DULoxetine HCL 20 MG CAP PO SCH (08:16)
[2020-01-06] MEDS: METOPROLOL SUCC 50MG EXT REL TAB PO SCH (08:16)
[2020-01-06] MEDS: ATORVASTATIN 40 MG TAB PO SCH (08:16)
[2020-01-06] MEDS: CLOPIDOGREL BISULFATE 75 MG TAB PO SCH (08:16)
[2020-01-06] MEDS: POTASSIUM CHLORIDE 20 MEQ TABCR PO SCH (08:16)
[2020-01-06] MEDS: INSULIN ASPART 100 UNITS/ML 3 ML PEN SC SCH ×4 (08:26→21:45)
[2020-01-06] MEDS: DOCUSATE SODIUM 100 MG CAP PO SCH (08:37)
--- NOTE | 2020-01-06 09:31 | Nephrology Progress Note ---
Date of Service January 06, 2020 Assessment & Plan (1) CKD (chronic kidney disease) stage 4, GFR 15-29 ml/min: h/o acute kidney injury on CKD4, now resolved. Baseline creatinine in the lower twos, remains at baseline after had been plateau'd for several days; peak creatinine 2.7 on 12/28-12/30. Electrolytes remain acceptable. No indication for dialysis. hyperkalemia improved/resolved w/ dialysis diet and diuresis -pt starting today on po lasix 80 mg daily, his prior OP dose >now that he's on lower dose lasix, lowered K to prior OP dose as well 10 mEq daily >will sign off; pls call if ? DISCHARGE RECS -keep kidney clinic appt with BALJEET Fong in [place] on 01/19/20 -continue lasix 80 mg daily and potassium 10 mEQ daily at discharge -hold lisinopril at discharge -bmp within a week of hospital discharge -continue fluid limit 1.5L/50 oz daily at discharge (2) Acute on chronic HFrEF (heart failure with reduced ejection fraction): acute on chronic HFrEF after recent ischemic AK and with concern for/hx of v fib. no current plan for cardiac cath but follow for this changing plan. Patient is stable with Lasix 40 mg IV twice daily. He was net -1.2 L yesterday (and again reading incomplete). -Fluid restriction of 1.5 L daily to cont -Low-sodium diet and monitor daily standing weight. -lasix now to cont iv -01/03 was first STANDING wt recently > 138.3 kg; 137 kg today Admission and Anticipated Discharge Date Admission Date: December 30, 2019 Subjective seen on rounds this am at approx 1015. he was in bed, tired out from walking on unit w/ walker. else no cc/o. change dot po diuretics today; feels edema remains controlled Review of Systems Review of Systems: All systems reviewed & are unremarkable except as noted in HPI & below Physical Exam Constitutional: well developed, well nourished and + obese; no acute distress lying near flat on RA slightly increased wob Eyes: EOM intact bilaterally ENMT: Ears: no external ear abnormality Nose: no external nose abnormality Mouth: + dry oral mucous membranes Neck: no nuchal rigidity Respiratory: normal respiratory effort Auscultation: lungs clear to auscultation bilaterally and + diminished lung sounds Cardiovascular: Rate/Rhythm: regular rate and regular rhythm Extremities: + edema (trace BL edema) Gastrointestinal (Abdomen): Inspection/Auscultation: normal bowel sounds Percussion/Palpation: abdomen soft; abdomen nontender Musculoskeletal: Extremities: strength 5/5 throughout Skin: no rashes, warm and dry Psychiatric: Orientation: alert and oriented x 3 Speech: normal rate/rhythm/volume of speech Results & Data ([facility]) Vital Signs (Past 12 Hours) Vital Signs Temp Pulse Pulse Resp BP BP Pulse Ox 01/06/20 08:04 36.3 C L 81 20 138/82 93 01/06/20 03:49 36.4 C L 79 19 150/79 H 94 01/06/20 03:20 70 18 96 01/06/20 00:00 80 01/05/20 23:36 36.4 C L 73 18 128/66 96 01/05/20 23:07 73 18 96 Laboratory Results 01/01/20 04:39 01/06/20 07:17
--- NOTE | 2020-01-06 16:08 | Cardiology Progress Note ---
Date of Service January 06, 2020 Assessment & Plan (1) Acute [place]: (2) Acute on chronic HFrEF (heart failure with reduced ejection fraction): (3) History of ventricular fibrillation: (4) PAF (paroxysmal atrial fibrillation): (5) H/O mitral valve replacement: (6) H/O aortic valve replacement: Volume status stable, creatinine improved. History of coronary heart disease, with single-vessel CABG to the RCA territory, no culprit stenosis found on recent cardiac catheterization 12/09/2019, subsequently presented with an acute myocardial infarction, significant troponin elevation greater than 200 NG per mL, worsening LV systolic dysfunction. He has a history of past bioprosthetic aortic valve replacement bioprosthetic mitral valve replacement, and ventricular arrhythmias with past appropriate ICD discharges most recently in November 2019. Continue clopidogrel plus Coumadin (Coumadin currently on hold for INR 3.9, on Coumadin due to history of paroxysmal atrial fibrillation). He is not on aspirin due to chronic iron deficiency anemia. Continue metoprolol, furosemide 80 mg daily, amiodarone 200 mg twice daily, atorvastatin. Increase activity as tolerated. Await rehab bed. Admission and Anticipated Discharge Date Admission Date: December 30, 2019 Subjective Patient seen in follow-up today. Denies chest discomfort. It is first dose of duloxetine yesterday, and has not had a chance to do a great deal of walking, but did walk a little bit in the hallway yesterday. Review of Systems Review of Systems: All systems reviewed & are unremarkable except as noted in HPI & below Physical Exam Physical Exam: Temp Pulse Resp BP Pulse Ox 36.5 C 76 20 121/72 94 01/06/20 11:05 01/06/20 11:05 01/06/20 11:05 01/06/20 11:05 01/06/20 11:05 Constitutional: WD/WN, vitals as above Respiratory: normal respiratory effort, lungs clear to auscultation Cardiovascular: RRR, no murmur, no edema Gastrointestinal (Abdomen): normal bowel sounds, soft, nontender, no hepatosplenomegaly Neurologic: PERRL, EOMI, accommodation nl, no face palsy, no dysarthria Results & Data ([facility]) Vital Signs (Past 12 Hours) Vital Signs Temp Pulse Resp BP Pulse Ox 01/06/20 11:05 36.5 C 76 20 121/72 94 01/06/20 08:04 36.3 C L 81 20 138/82 93 Laboratory Results Coagulation 01/06/20 Range/Units 07:17 PT 37.9 H (9.0-12.0) Seconds Comprehensive Metabolic Panel 01/06/20 Range/Units 07:17 Sodium 137 (136-145) mmol/L Potassium 3.8 (3.5-5.1) mmol/L Chloride 104 (98-107) mmol/L Carbon Dioxide 25 (21-32) mmol/L BUN 59 H (7-18) mg/dl Creatinine 2.08 H (0.6-1.4) mg/dl Glucose 140 H (70-99) mg/dl Calcium 9.4 (8.5-10.1) mg/dl Intake and Output 01/06/20 01/06/20 01/06/20 06:59 14:59 22:59 Intake Total 50 / 1365 475 / 475 Output Total 200 / 200 Balance 50 / 1365 275 / 275 Intake: Oral 50 / 1365 475 / 475 Output: Urine 200 / 200 Other: Other Intake Source NPO Weight 137 kg 137 kg Weight Measurement Method Standing Scale Patient Weight 01/07/20 06:59 Weight 137 kg
[2020-01-06] MEDS ORDERED: ONDANSETRON INJ 2 MG/ML 2 ML VIAL IV PRN (20:27)
[2020-01-06] MEDS ORDERED: ACETAMINOPHEN 500 MG TAB PO PRN (20:28)
--- NOTE | 2020-01-06 21:32 | Hospitalist Progress Note ---
Date of Service January 06, 2020 Assessment & Plan (1) Acute AR: (1) Acute AR: (2) Acute on chronic systolic CHF (heart failure with reduced ejection fraction): -admitted with complain of chest pain, shortness of breath, diaphoresis, nausea -Cardiac cath 12/09/2019 [place] [facility] [place] demonstrated nonobstructive CAD and patent bypass graft and stents -Troponin 91.3 --> >200 EKG demonstrating paced rhythm Echo: EF 25 to 30%, basal inferior and basal posterior segments are severely hypokinetic to akinetic cardiology following , appreciate input pt is continued with Aspirin , Plavix , beta varsha coumadin on hold for elevated INR (4) CKD (chronic kidney disease) stage 4, GFR 15-29 ml/min: cr improved to approx baseline -Nephrology recommends : -pt is started on lasix 80 mg daily and potassium 10 mEQ daily at discharge -hold lisinopril at discharge -bmp within a week of hospital discharge -continue fluid limit 1.5L/50 oz daily at discharge (5) History of ventricular fibrillation: -S/p AICD -On amiodarone (6) PAF (paroxysmal atrial fibrillation): -Rate controlled on metoprolol, rhythm controlled on amiodarone -Anticoagulated on Coumadin-on hold for elevated INR (7) Diabetes mellitus, type 2: -Hgb A1c 7.3 11/2019 -NovoLog per protocol while hospitalized (8) DVT prophylaxis: -INR elevated apptreciate PT OT rehab recommends [facility] will be discharged to rehab when bed available Admission and Anticipated Discharge Date Admission Date: December 30, 2019 Subjective no recurrence of chest pain no sob Physical Exam Constitutional: WD/WN, vitals as above Eyes: PERRL, conjunctivae normal, anicteric sclerae ENMT: external ear and nose normal, oropharynx normal Neck: trachea midline, no thyromegaly Respiratory: normal respiratory effort, lungs clear to auscultation Cardiovascular: RRR, no murmur, no edema Gastrointestinal (Abdomen): normal bowel sounds, soft, nontender, no hepatosplenomegaly Musculoskeletal: no cyanosis or clubbing, extremities motor strength 5/5 Skin: no rashes, warm and dry Neurologic: PERRL, EOMI, accommodation nl, no face palsy, no dysarthria Psychiatric: A+Ox3, euthymic affect Results & Data Results & Data ([facility]) Vital Signs (Past 12 Hours) Vital Signs Temp Pulse Resp BP Pulse Ox 01/06/20 20:06 36.6 C 74 18 139/83 95 01/06/20 16:30 36.4 C L 71 16 128/74 95 01/06/20 11:05 36.5 C 76 20 121/72 94
[2020-01-07] MEDS: DULoxetine HCL 20 MG CAP PO SCH (07:35)
[2020-01-07] MEDS: ATORVASTATIN 40 MG TAB PO SCH (07:35)
[2020-01-07] MEDS: FUROSEMIDE 80 MG TAB PO SCH (07:35)
[2020-01-07] MEDS: CLOPIDOGREL BISULFATE 75 MG TAB PO SCH (07:35)
[2020-01-07] MEDS: POTASSIUM CHLORIDE 10 MEQ TABCR PO SCH (07:36)
[2020-01-07] MEDS: ISOSORBIDE MONO EXTENDED REL 60 MG TABCR PO SCH (07:36)
[2020-01-07] MEDS: METOPROLOL SUCC 50MG EXT REL TAB PO SCH (07:36)
[2020-01-07] MEDS: AMIODARONE 200 MG TAB PO SCH ×2 (07:37→21:49)
[2020-01-07] MEDS: CYANOCOBALAMIN 500 MCG TABLET (VITAMIN B-12) PO SCH (07:37)
[2020-01-07] MEDS: FERROUS SULFATE 325 MG TAB PO SCH ×2 (07:37→21:50)
[2020-01-07 07:50] LABS: INR 3.5 (0.9-1.1); Prothrombin Time 34.6 Seconds (9.0-12.0)
[2020-01-07 07:53] LABS: BUN Creatinine Ratio 26.6 (10-20); Creatinine Clr Calc Pharmacy 42.1 ml/min; Est GFR (African American) 34.9; Est GFR (Non-African American) 30.1; Potassium 4.1 mmol/L (3.5-5.1)
[2020-01-07] MEDS: DOCUSATE SODIUM 100 MG CAP PO SCH (08:05)
[2020-01-07] MEDS: INSULIN GLARGINE SOLOSTAR 100 UNITS/ML 3 ML PEN SC SCH (08:06)
[2020-01-07] MEDS: INSULIN ASPART 100 UNITS/ML 3 ML PEN SC SCH ×4 (08:06→21:49)
--- NOTE | 2020-01-07 17:17 | Hospitalist Progress Note ---
Date of Service January 07, 2020 Assessment & Plan (1) Acute CO: (1) Acute CO: (2) Acute on chronic systolic CHF (heart failure with reduced ejection fraction): -admitted with complain of chest pain, shortness of breath, diaphoresis, nausea -Cardiac cath 12/09/2019 at [facility] [place] demonstrated nonobstructive CAD and patent bypass graft and stents -Troponin 91.3 --> >200 EKG demonstrating paced rhythm Echo: EF 25 to 30%, basal inferior and basal posterior segments are severely hypokinetic to akinetic cardiology following , appreciate input pt is continued with Aspirin , Plavix , beta varsha coumadin on hold for elevated INR Will be resumed as INR less than 3 (4) CKD (chronic kidney disease) stage 4, GFR 15-29 ml/min: cr improved to approx baseline - -pt is started on lasix 80 mg daily and potassium 10 mEQ daily at discharge As per nephrology recommendation -hold lisinopril at discharge -bmp within a week of hospital discharge -continue fluid limit 1.5L/50 oz daily at discharge (5) History of ventricular fibrillation: -S/p AICD -On amiodarone (6) PAF (paroxysmal atrial fibrillation): -Rate controlled on metoprolol, rhythm controlled on amiodarone -Anticoagulated on Coumadin-on hold for elevated INR (7) Diabetes mellitus, type 2: -Hgb A1c 7.3 11/2019 -NovoLog per protocol while hospitalized (8) DVT prophylaxis: -INR elevated apptreciate PT OT rehab recommends [facility] will be discharged to rehab when bed available Admission and Anticipated Discharge Date Admission Date: December 30, 2019 Subjective Feeling fine, no complaint of shortness of breath no chest pain No fever or chills Physical Exam Constitutional: WD/WN, vitals as above Eyes: PERRL, conjunctivae normal, anicteric sclerae ENMT: external ear and nose normal, oropharynx normal Neck: trachea midline, no thyromegaly Respiratory: normal respiratory effort, lungs clear to auscultation Cardiovascular: RRR, no murmur, no edema Gastrointestinal (Abdomen): normal bowel sounds, soft, nontender, no hepatosplenomegaly Musculoskeletal: no cyanosis or clubbing, extremities motor strength 5/5 Skin: no rashes, warm and dry Neurologic: PERRL, EOMI, accommodation nl, no face palsy, no dysarthria Psychiatric: A+Ox3, euthymic affect Results & Data Results & Data ([facility]) Vital Signs (Past 12 Hours) Vital Signs Temp Pulse Resp BP Pulse Ox 01/07/20 11:07 36.5 C 74 121/74 98 01/07/20 08:16 36.7 C 70 16 127/77 95
[2020-01-08 07:07] LABS: INR 3.7 (0.9-1.1); Prothrombin Time 36.2 Seconds (9.0-12.0)
[2020-01-08 07:17] LABS: BUN Creatinine Ratio 28.2 (10-20); Calcium 8.9 mg/dl (8.5-10.1); Creatinine Clr Calc Pharmacy 41.4 ml/min; Est GFR (African American) 37.3; Est GFR (Non-African American) 32.2; Potassium 4.2 mmol/L (3.5-5.1)
[2020-01-08] MEDS: ISOSORBIDE MONO EXTENDED REL 60 MG TABCR PO SCH (08:40)
[2020-01-08] MEDS: CLOPIDOGREL BISULFATE 75 MG TAB PO SCH (08:40)
[2020-01-08] MEDS: AMIODARONE 200 MG TAB PO SCH ×2 (08:40→20:12)
[2020-01-08] MEDS: POTASSIUM CHLORIDE 10 MEQ TABCR PO SCH (08:40)
[2020-01-08] MEDS: FUROSEMIDE 80 MG TAB PO SCH (08:40)
[2020-01-08] MEDS: FERROUS SULFATE 325 MG TAB PO SCH ×2 (08:40→20:12)
[2020-01-08] MEDS: METOPROLOL SUCC 50MG EXT REL TAB PO SCH (08:40)
[2020-01-08] MEDS: DULoxetine HCL 20 MG CAP PO SCH (08:40)
[2020-01-08] MEDS: ATORVASTATIN 40 MG TAB PO SCH (08:40)
[2020-01-08] MEDS: INSULIN GLARGINE SOLOSTAR 100 UNITS/ML 3 ML PEN SC SCH (08:41)
[2020-01-08] MEDS: INSULIN ASPART 100 UNITS/ML 3 ML PEN SC SCH ×4 (08:41→20:12)
[2020-01-08] MEDS: CYANOCOBALAMIN 500 MCG TABLET (VITAMIN B-12) PO SCH (08:44)
[2020-01-08] MEDS: DOCUSATE SODIUM 100 MG CAP PO SCH (08:59)
--- NOTE | 2020-01-08 17:01 | Hospitalist Progress Note ---
Date of Service January 08, 2020 Assessment & Plan (1) Acute MS: (1) Acute MS: (2) Acute on chronic systolic CHF (heart failure with reduced ejection fraction): -admitted with complain of chest pain, shortness of breath, diaphoresis, nausea -Cardiac cath 12/09/2019 at [facility] [place] demonstrated nonobstructive CAD and patent bypass graft and stents -Troponin 91.3 --> >200 EKG demonstrating paced rhythm Echo: EF 25 to 30%, basal inferior and basal posterior segments are severely hypokinetic to akinetic cardiology following , appreciate input pt is continued with Aspirin , Plavix , beta varsha coumadin on hold for elevated INR Will be resumed as INR less than 3 (4) CKD (chronic kidney disease) stage 4, GFR 15-29 ml/min: cr improved to approx baseline - -pt is started on lasix 80 mg daily and potassium 10 mEQ daily at discharge As per nephrology recommendation -hold lisinopril at discharge -bmp within a week of hospital discharge -continue fluid limit 1.5L/50 oz daily at discharge (5) History of ventricular fibrillation: -S/p AICD -On amiodarone (6) PAF (paroxysmal atrial fibrillation): -Rate controlled on metoprolol, rhythm controlled on amiodarone -Anticoagulated on Coumadin-on hold for elevated INR (7) Diabetes mellitus, type 2: -Hgb A1c 7.3 11/2019 -NovoLog per protocol while hospitalized (8) DVT prophylaxis: -INR elevated apptreciate PT OT rehab recommends [facility] will be discharged to rehab when bed available Admission and Anticipated Discharge Date Admission Date: December 30, 2019 Subjective offers no new complain waiting to be transferred to rehab Physical Exam Constitutional: WD/WN, vitals as above Eyes: PERRL, conjunctivae normal, anicteric sclerae ENMT: external ear and nose normal, oropharynx normal Neck: trachea midline, no thyromegaly Respiratory: normal respiratory effort, lungs clear to auscultation Cardiovascular: RRR, no murmur, no edema Gastrointestinal (Abdomen): normal bowel sounds, soft, nontender, no hepatosplenomegaly Musculoskeletal: no cyanosis or clubbing, extremities motor strength 5/5 Skin: no rashes, warm and dry Neurologic: PERRL, EOMI, accommodation nl, no face palsy, no dysarthria Psychiatric: A+Ox3, euthymic affect Results & Data Results & Data ([facility]) Vital Signs (Past 12 Hours) Vital Signs Temp Pulse Pulse Resp BP BP Pulse Ox 01/08/20 15:09 37.2 C 66 18 121/69 94 01/08/20 11:39 36.8 C 70 18 114/67 91 01/08/20 07:45 36.8 C 69 18 128/76 95 01/08/20 07:26 74
[2020-01-09] MEDS: ISOSORBIDE MONO EXTENDED REL 60 MG TABCR PO SCH (08:33)
[2020-01-09] MEDS: CLOPIDOGREL BISULFATE 75 MG TAB PO SCH (08:33)
[2020-01-09] MEDS: DULoxetine HCL 20 MG CAP PO SCH (08:33)
[2020-01-09] MEDS: POTASSIUM CHLORIDE 10 MEQ TABCR PO SCH (08:33)
[2020-01-09] MEDS: METOPROLOL SUCC 50MG EXT REL TAB PO SCH (08:33)
[2020-01-09] MEDS: CYANOCOBALAMIN 500 MCG TABLET (VITAMIN B-12) PO SCH (08:33)
[2020-01-09] MEDS: FUROSEMIDE 80 MG TAB PO SCH (08:33)
[2020-01-09] MEDS: FERROUS SULFATE 325 MG TAB PO SCH ×2 (08:33→21:06)
[2020-01-09] MEDS: ATORVASTATIN 40 MG TAB PO SCH (08:33)
[2020-01-09] MEDS: AMIODARONE 200 MG TAB PO SCH ×2 (08:33→21:06)
[2020-01-09] MEDS: INSULIN ASPART 100 UNITS/ML 3 ML PEN SC SCH ×4 (08:34→21:06)
[2020-01-09] MEDS: INSULIN GLARGINE SOLOSTAR 100 UNITS/ML 3 ML PEN SC SCH (08:36)
[2020-01-09] MEDS: CYANOCOBALAMIN 1000 MCG/ML VIAL IM SCH (08:45)
[2020-01-09] MEDS: DOCUSATE SODIUM 100 MG CAP PO SCH (08:46)
[2020-01-09 11:04] LABS: INR 3.5 (0.9-1.1); Prothrombin Time 34.7 Seconds (9.0-12.0)
--- NOTE | 2020-01-09 18:44 | Hospitalist Progress Note ---
Date of Service January 09, 2020 Assessment & Plan (1) Acute [place]: (1) Acute [place]: (2) Acute on chronic systolic CHF (heart failure with reduced ejection fraction): -admitted with complain of chest pain, shortness of breath, diaphoresis, nausea -Cardiac cath 12/09/2019 at [facility] [place] demonstrated nonobstructive CAD and patent bypass graft and stents -Troponin 91.3 --> >200 EKG demonstrating paced rhythm Echo: EF 25 to 30%, basal inferior and basal posterior segments are severely hypokinetic to akinetic cardiology following , appreciate input pt is continued with Aspirin , Plavix , beta varhsa coumadin on hold for elevated INR Will be resumed as INR less than 3 (4) CKD (chronic kidney disease) stage 4, GFR 15-29 ml/min: cr improved to approx baseline - -Continue on lasix 80 mg daily and potassium 10 mEQ daily at discharge As per nephrology recommendation -hold lisinopril at discharge -bmp within a week of hospital discharge Follow-up as scheduled with nephrology clinic already -continue fluid limit 1.5L/50 oz daily at discharge (5) History of ventricular fibrillation: -S/p AICD -On amiodarone (6) PAF (paroxysmal atrial fibrillation): -Rate controlled on metoprolol, rhythm controlled on amiodarone -Anticoagulated on Coumadin-on hold for elevated INR (7) Diabetes mellitus, type 2: -Hgb A1c 7.3 11/2019 -NovoLog per protocol while hospitalized (8) DVT prophylaxis: -INR elevated apptreciate PT OT rehab recommends rehab referral made to [facility] Plan to discharge to rehab tomorrow if bed available Admission and Anticipated Discharge Date Admission Date: December 30, 2019 Subjective no chest pain no shortness of breath no cough no fever or chills No new complaint, waiting to be discharged to rehab, Physical Exam Constitutional: WD/WN, vitals as above Eyes: PERRL, conjunctivae normal, anicteric sclerae ENMT: external ear and nose normal, oropharynx normal Neck: trachea midline, no thyromegaly Respiratory: normal respiratory effort, lungs clear to auscultation Cardiovascular: RRR, no murmur, no edema Gastrointestinal (Abdomen): normal bowel sounds, soft, nontender, no hepatosplenomegaly Musculoskeletal: no cyanosis or clubbing, extremities motor strength 5/5 Skin: no rashes, warm and dry Neurologic: PERRL, EOMI, accommodation nl, no face palsy, no dysarthria Psychiatric: A+Ox3, euthymic affect Results & Data Results & Data ([facility]) Vital Signs (Past 12 Hours) Vital Signs Temp Pulse Pulse Resp BP BP Pulse Ox 01/09/20 15:55 36.4 C L 67 18 127/80 95 01/09/20 11:30 36.9 C 69 18 123/66 94 01/09/20 08:00 71 01/09/20 07:36 36.6 C 67 16 122/69 95
[2020-01-10] MEDS: FUROSEMIDE 80 MG TAB PO SCH (08:02)
[2020-01-10] MEDS: ATORVASTATIN 40 MG TAB PO SCH (08:02)
[2020-01-10] MEDS: FERROUS SULFATE 325 MG TAB PO SCH (08:02)
[2020-01-10] MEDS: AMIODARONE 200 MG TAB PO SCH (08:02)
[2020-01-10] MEDS: POTASSIUM CHLORIDE 10 MEQ TABCR PO SCH (08:03)
[2020-01-10] MEDS: METOPROLOL SUCC 50MG EXT REL TAB PO SCH (08:03)
[2020-01-10] MEDS: CYANOCOBALAMIN 500 MCG TABLET (VITAMIN B-12) PO SCH (08:03)
[2020-01-10] MEDS: ISOSORBIDE MONO EXTENDED REL 60 MG TABCR PO SCH (08:03)
[2020-01-10] MEDS: DULoxetine HCL 20 MG CAP PO SCH (08:04)
[2020-01-10] MEDS: CLOPIDOGREL BISULFATE 75 MG TAB PO SCH (08:04)
[2020-01-10] MEDS: DOCUSATE SODIUM 100 MG CAP PO SCH (08:05)
[2020-01-10] MEDS: INSULIN GLARGINE SOLOSTAR 100 UNITS/ML 3 ML PEN SC SCH (08:37)
[2020-01-10] MEDS: INSULIN ASPART 100 UNITS/ML 3 ML PEN SC SCH ×2 (08:38→13:04)
--- NOTE | 2020-01-10 13:10 | Discharge Summary ---
Date of Service January 10, 2020 Admission HPI Per Admitting Provider 74-year-old male with complex medical history including DM type II, ischemic cardiomyopathy, paroxysmal atrial fibrillation, ventricular fibrillation s/p AICD, CKD stage IV, aortic and mitral valve replacements, and other problems listed below who presents the ED for evaluation of chest pain. Patient has had 2 hospitalizations recently, 11/23 through 12/02 at [facility] with transfer to [place] for acute systolic CHF and NSTEMI and then [facility] on 12/06 with transfer to [facility] for high risk cardiac cath. Cardiac cath demonstrated nonobstructive CAD. Device interrogation revealed V. fib arrest with ICD di scharge x2. Patient was started on amiodarone and metoprolol succinate and atorvastatin were both titrated up. Patient reports he has been feeling well since his discharge until this morning when while he was driving, he developed chest pain. Patient reports the pain was located midsternally and rates the pain #7/10. He describes the pain as a pressure with some radiation to the jaw. He was also diaphoretic, short of breath, nauseated. Patient drove home and took 2 sublingual nitroglycerin without any relief in his symptoms. EMS was then called and patient was brought to the ED for further evaluation. Patient reports he does not weigh himself on a daily basis however denies any worsening lower extremity edema orthopnea. No syncopal events. Denies fevers and chills. No productive cough. Denies abdominal pain, vomiting, diarrhea. No urinary symptoms. In the ED, labs show troponin 91.3, CXR with evidence of pulmonary edema. EKG demonstrates a paced rhythm. Patient was placed on BiPAP. He was also given Lasix 40 mg IV and started on a nitro drip. At the time my exam, patient is resting in bed no acute distress. Currently rates his chest pain #1/10. Principal Diagnosis ACUTE MD HYPERKALEMIA ACUTE RENAL FAILURE ON CKD STAGE 3 RESOLVED ATRIAL FIBRILLATION Discharge Exam Constitutional WD/WN, vitals as above Eyes PERRL, conjunctivae normal, anicteric sclerae ENMT external ear and nose normal, oropharynx normal Neck trachea midline, no thyromegaly Respiratory normal respiratory effort, lungs clear to auscultation Cardiovascular RRR, no murmur, no edema Gastrointestinal (Abdomen) normal bowel sounds, soft, nontender, no hepatosplenomegaly Musculoskeletal no cyanosis or clubbing, extremities motor strength 5/5 Skin no rashes, warm and dry Neurologic PERRL, EOMI, accommodation nl, no face palsy, no dysarthria Psychiatric A+Ox3, euthymic affect Discharge Data Allergies Allergy/AdvReac Type Severity Reaction Status Date / Time heparin Allergy Unknown Unknown Unverified 12/30/19 13:19 Consultations 12/30/19 15:25 ED Decision to Admit Stat 12/30/19 18:12 Consult Case Management - Discharge Planning Routine Consult Asphalt Machine Operator Routine 12/31/19 06:42 Consult Nephrology Routine 12/31/19 14:21 Consult Cardiology Routine Hospital Course (1) Acute MD: (1) Acute MD: (2) Acute on chronic systolic CHF (heart failure with reduced ejection fraction): -admitted with complain of chest pain, shortness of breath, diaphoresis, nausea -Cardiac cath 12/09/2019 at [facility] demonstrated nonobstructive CAD and patent bypass graft and stents -Troponin 91.3 --> >200 EKG demonstrating paced rhythm Echo: EF 25 to 30%, basal inferior and basal posterior segments are severely hypokinetic to akinetic cardiology following , appreciate input pt is continued with Aspirin , Plavix , beta varsha coumadin on hold for elevated INR Will be resumed as INR less than 3 (4) CKD (chronic kidney disease) stage 4, GFR 15-29 ml/min: cr improved to approx baseline - -Continue on lasix 80 mg daily and potassium 10 mEQ daily at discharge As per nephrology recommendation -hold lisinopril at discharge -bmp within a week of hospital discharge Follow-up as scheduled with nephrology clinic already -continue fluid limit 1.5L/50 oz daily at discharge (5) History of ventricular fibrillation: -S/p AICD -On amiodarone (6) PAF (paroxysmal atrial fibrillation): -Rate controlled on metoprolol, rhythm controlled on amiodarone -Anticoagulated on Coumadin-on hold for elevated INR (7) Diabetes mellitus, type 2: -Hgb A1c 7.3 11/2019 -NovoLog per protocol while hospitalized (8) DVT prophylaxis: -INR elevated apptreciate PT OT rehab recommends [facility] Plan to discharge to rehab tomorrow if bed available Total Time Total Time Spent Total Time Spent (In Minutes): 3 5 minutes Total Time Includes: Discharge Planning Discharge Plan Discharge Items Patient Disposition: Transfer [facility] Reason For Visit: CHF, NSTEMI Discharge Diagnosis: ACUTE MD HYPERKALEMIA ACUTE RENAL FAILURE ON CKD STAGE 3 RESOLVED ATRIAL FIBRILLATION Activity: Resume your previous activity Non-emergency contact: Primary Care Provider Call non-emergency contact if: you have any medication questions Follow-up/Referrals: Arya Isaacs DO [Chief Hydroelectric Station Operator] - Glenn Payne PA-C [Primary Care Provider] - Diet: Heart Healthy Fluids: 1500ml (6 cups) Dalytl Attending Provider Instructions: Call your Primary Care doctor if any of the following symptoms or problems start or get worse: * Shortness of breath or difficulty breathing * Wake up at night short of breath * Chest pain * Cough * Swelling of your hands, feet, or legs * More fatigued or tired with your normal activity * Palpitations - sudden fast heart beats WEIGHT * Weigh yourself every morning after using the bathroom. * Use the same scale. * Wear the same amount of clothing. * Write your weight down on a chart. * Call your Primary Care doctor if you gain more than 2-3 pounds in 1-2 days. MEDICATIONS * Use this discharge instruction sheet for medication instructions. * Take your medications at the time your doctor ordered. * Do not skip a dose of your medicines. * If you miss a dose of medicine, take it as soon as possible, but DO NOT DOUBLE A DOSE. * Read your medicine information when you get home. * Know all of the side effects of your medicine. If in doubt, ask your pharmacist * Call your Primary Care doctor's office if you have any side effects. * Be sure all of your doctors know what medicine and herbs you take (including cold, flu, and herbal medicine). Take the following with you to your follow-up doctor appointments: * Weight Chart * Medication List * List of questions Do not drink excessive alcohol, beer or wine. Add Molder Operator Provider Instructions: -keep kidney clinic appointment with BALJEET Fong in [place] on 01/19/20 -continue lasix 80 mg daily and potassium 10 mEQ daily at discharge -hold lisinopril at discharge -bmp within a week of hospital discharge -continue fluid limit 1.5L/50 oz daily at discharge HOLD COUMADIN DOSE FOR TOMORROW CHECK PT /INR ON THURSDAY , RESUME COUMADIN IF INR LESS THAN 3 Pending Studies at Discharge: Yes Studies:: LAB : BASIC METABOLIC PANEL IN A WEEK PT/INR ON FRIDAY 01/12 Stand-Alone Forms: Smoking Cessation Skilled Items Patient informed of condition?: Yes DNR: No Discharge Level of Care: Skilled Communicable Disease: No Discharge Prognosis: Stable Lines: None Urinary Catheter: No Medications and DC Order Prescriptions: New duloxetine 20 mg Capsule,Delayed Release(Dr/Ec) 20 mg PO QAM 30 Days Qty: 30 RF: 0 Continued amiodarone 200 mg tablet 200 mg PO BID RF: 0 clopidogrel 75 mg tablet 75 mg PO QAM RF: 0 furosemide 80 mg tablet 80 mg PO QAM RF: 0 nitroglycerin 0.4 mg tablet, sublingual 0.4 mg sublingual DIRECTED PRN (Reason: Chest Pain) RF: 0 omeprazole 20 mg capsule,delayed release(DR/EC) 20 mg PO QAM PRN (Reason: upset stomach/heartburn) RF: 0 albuterol sulfate 90 mcg/actuation HFA aerosol inhaler 2 puff INHALATION QID RF: 0 insulin aspart U-100 [Novolog Flexpen U-100 Insulin] 100 unit/mL (3 mL) insulin pen See Rx Instructions .ROUTE .COMPLEX RF: 0 Tresiba FlexTouch U-200 200 unit/mL (3 mL) insulin pen 36 unit SUBCUT QAM RF: 0 cyanocobalamin (vitamin B-12) [Vitamin B-12] 1,000 mcg Tablet 1,000 mcg PO QAM RF: 0 ascorbic acid (vitamin C) [Vitamin C] 500 mg Tablet,Chewable 500 mg PO BID RF: 0 docusate sodium 100 mg Capsule 100 mg PO BID RF: 0 atorvastatin 80 mg tablet 80 mg PO DAILY RF: 0 metoprolol succinate 100 mg tablet extended release 24 hr 100 mg PO DAILY RF: 0 warfarin 2.5 mg tablet 2.5 mg PO SUTUTHSA RF: 0 cyanocobalamin (vitamin B-12) [Vitamin B-12] 1,000 mcg/mL Solution 1,000 mcg IM MO RF: 0 ferrous sulfate 325 mg (65 mg iron) Tablet 325 mg PO BID RF: 0 potassium chloride [Klor-Con M10] 10 mEq Tablet,Er Particles/Crystals 10 meq PO DAILY RF: 0 magnesium oxide 400 mg magnesium Tablet 400 mg PO DAILY RF: 0 warfarin 2.5 mg tablet 1.25 mg PO MOWEFR RF: 0 Changed isosorbide mononitrate 30 mg tablet extended release 24 hr 60 mg PO QAM 30 Days Qty: 60 RF: 0 Discontinued lisinopril 5 mg tablet 5 mg PO QAM RF: 0 Discharge Orders: Discharge Order (Routine); Ordered 01/10/20 Ordered By: Rocio Steel Admission Data Admit Date/Time: 12/30/19 15:34 Attending Provider: Rocio Steel Admit Provider: John Paul Casas Primary Care Provider: Glenn Payne Other Providers: [place] ; Fabricio Aj at [place] ; John Paul Casas ; Bubba Barreto ; Khalif Lomeli ; Arya Isaacs
[2020-01-10 13:40] LABS: INR 3.3 (0.9-1.1); Prothrombin Time 32.7 Seconds (9.0-12.0)
== END 2020-01-10 14:46 | DRG 280 ==
LOC: ED 11:57 → 1E 15:34 → SUATTDRO 15:34 → 1E 17:24 → 2S 01-04 20:11 → 2N 01-07 13:09

== ENCOUNTER 2020-02-12 14:34 | Observation (INO) ==
[2020-02-12] MEDS ORDERED: SODIUM CHLORIDE 0.9% 1000ML 500 ML IV ONE (14:43)
--- NOTE | 2020-02-12 14:47 | Emergency Department Note ---
Impression & Plan CHF (congestive heart failure), Pacemaker malfunction, Elevated troponin ED Provider Note NAME: MATILDE HOOKS AGE: 74 SEX: M : 1945 ARRIVES VIA: Ambulance INFORMANT: Patient ED PROVIDER(S): Aaron Jaffe DO CHIEF COMPLAINT: Pacemaker beeping HPI: Patient is a 74-year-old male who presents to the ER for pacemaker beeping. Beeped twice today. Consequently called EMS. He was feeling fine otherwise. Just shortly after he arrived he felt dizzy and a little nauseated. He was unable to walk and was lowered to the ground by nursing staff due to weakness. He questions if riding in the back at the ambulance because of this. He denies any headache, change in vision, chest pain, shortness of breath, vomiting, diarrhea, dysuria, urgency or frequency. ROS: See above HPI for pertinent positives & negatives. A total of 10 systems reviewed and were otherwise negative. PAST MEDICAL HISTORY:See Below PAST SURGICAL HISTORY:See Below FAMILY HISTORY:See Below SOCIAL HISTORY:See Below HOME MEDICATIONS:See Below ALLERGIES:See Below VITALS:See Below PHYSICAL EXAMINATION: GENERAL: Sitting up in bed, alert, well appearing, well nourished, no distress, non-toxic EYE EXAM: normal conjunctiva. PERRL and EOM's intact. OROPHARYNX: no exudate, no erythema, lips, buccal mucosa, and tongue normal and mucous membranes are moist NECK: supple, no nuchal rigidity, no adenopathy, non-tender LUNGS: Clear to auscultation. Normal chest wall mechanics HEART: no murmurs, S1 normal and S2 normal ABDOMEN: abdomen soft, non-tender, normo-active bowel sounds, no masses, no rebound or guarding. BACK: Back is symmetrical on inspection and there is no deformity, no midline tenderness, no CVA tenderness. SKIN: no rashes and no bruising UPPER EXTREMITIES: upper extremities are grossly normal. LOWER EXTREMITIES: Pitting edema in the lower extremities NEURO EXAM: Normal sensorium, cranial nerves II-XII intact, normal speech, no weakness of arms, no weakness of legs. No drift. Finger to nose intact. Gross sensation intact. MEDICAL DECISION MAKING: Patient is a 74-year-old gentleman that presents ER as his pacemaker was beeping today. IV was established blood work was obtained. Labs show mild anemia at 10. No significant leukocytosis. INR was significantly elevated 6.5. BMP with a creatinine of 1.8 which is actually better than previous. LFTs bilirubin was unremarkable. Troponin was elevated 0.087. Previous troponins were above 100. Uncertain if this is his new baseline or not. He denies any chest pain shortness of breath at this time. Lipase was unremarkable. Pulse ox was about 91 to 92%. Covid was negative. He does have pitting edema in the lower extremities. CT of the head was negative. Pacemaker was interrogated by [employer] rep who notes he is uncertain of the malfunction at this point but will come in to evaluate. He does appear to be pacing on EKG. Patient was given Lasix and discussed with the hospitalist for further evaluation. Chest x- ray does support pleural effusions. Triage Nursing notes reviewed. Prior medical records reviewed Vital Signs: reviewed and remarkable for HTN Differential diagnosis: Differential diagnoses includes but is not limited to acute coronary syndrome, myocardial infarction, pericarditis, pulmonary embolus, aortic dissection, pneumonia, pneumothorax, musculoskeletal, shingles, esophageal. ER treatment provided: See below Diagnostics interpreted by me: ECG: Ventricularly paced rate of [address] segment elevations in the septal leads Depressions in the septal leads No significant change from EKG performed in December Cardiac Monitoring: An order was placed for continuous cardiac monitoring. The monitor shows a rate of 70 with sinus rhythm. Laboratory studies: As stated above and show below. Imaging studies: CT head was negative Portable AP upright 1 view of the chest shows bilateral pleural effusions with cephalization Consultation(s): Discussed with hospitalist for further evaluation Discussed with Allen from [employer] will evaluate the patient from the inpatient standpoint. ED COURSE: Procedures: none Critical Care: None Past Med/Surg History Medical History (Updated 02/12/20 @ 19:54 by Aaron Jaffe DO) CAD (coronary artery disease) 07/2018: coronary artery bypass grafting x1 with reverse saphenous vein from aorta to right coronary artery via endoscopic saphenous vein harvesting; PCI to mid LAD with RIZWAN Chronic HFrEF (heart failure with reduced ejection fraction) Chronic kidney disease CKD (chronic kidney disease) stage 4, GFR 15-29 ml/min Diabetes mellitus, type 2 GERD (gastroesophageal reflux disease) History of ventricular fibrillation Hyperlipidemia Hypertension OBED on CPAP PAF (paroxysmal atrial fibrillation) Pernicious anemia Surgical History H/O aortic valve replacement Status post bioprosthetic AVR in 2004 Aortic valve prosthesis stenosis and mitral regurgitation requiring redo sternotomy jul 21 2013 with redo AVR and subsequent MVR. H/O mitral valve replacement History of appendectomy History of cardiac cath History of colonoscopy History of coronary artery bypass graft x 1 coronary artery bypass grafting x1 with reverse saphenous vein from aorta to right coronary artery via endoscopic saphenous vein harvesting. History of heart artery stent History of heart valve replacement ICD (implantable cardioverter-defibrillator) in place Family History Father Heart disease [place] @ age 64 Mother , age 34, stomach ca Cancer Social History Smoking Status: Never smoker Second Hand Exposure: No; Hx Alcohol Use: No Hx Substance Use: No Preferred Language: Romansh Communication Ability: Effective Terrazzo Grinder Required: No Beliefs That Will Affect Care: None Current Living Situation: Alone current occupation: retired Other Information That Helps Us Care for You: No Feels Safe at Home: Yes Safety Concerns: Feels Safe At This Time Assistive Devices: Glasses and Walker Allergies Allergies Allergy/AdvReac Type Severity Reaction Status Date / Time No Known Allergies Allergy Unverified 02/12/20 18:24 Home Meds Home Medications Medication Instructions Recorded Confirmed Tresiba FlexTouch U-200 36 unit SUBCUT QAM 12/07/19 02/12/20 albuterol sulfate 2 puff INHALATION QID PRN 12/07/19 02/12/20 amiodarone 200 mg PO BID 12/07/19 02/12/20 ascorbic acid (vitamin C) [Vitamin 500 mg PO BID 12/07/19 02/12/20 C] clopidogrel 75 mg PO QAM 12/07/19 02/12/20 cyanocobalamin (vitamin B-12) 1,000 mcg PO QAM 12/07/19 02/12/20 [Vitamin B-12] docusate sodium 100 mg PO BID 12/07/19 02/12/20 furosemide 80 mg PO QAM 12/07/19 02/12/20 insulin aspart U-100 [Novolog 0 unit SUBCUT AC 12/07/19 02/12/20 Flexpen U-100 Insulin] nitroglycerin 0.4 mg SUBLINGUAL DIRECTED PRN 12/07/19 02/12/20 omeprazole 20 mg PO QAM PRN 12/07/19 02/12/20 atorvastatin 80 mg PO QPM 12/30/19 02/12/20 cyanocobalamin (vitamin B-12) 1,000 mcg IM MO 12/30/19 02/12/20 ferrous sulfate 325 mg PO BID 12/30/19 02/12/20 magnesium oxide 400 mg PO DAILY 12/30/19 02/12/20 metoprolol succinate 100 mg PO DAILY 12/30/19 02/12/20 warfarin 1.25 mg PO 3XWK 12/30/19 02/12/20 warfarin 2.5 mg PO 4XWK 12/30/19 02/12/20 duloxetine 20 mg PO QAM 02/12/20 02/12/20 lisinopril 5 mg PO DAILY 02/12/20 02/12/20 Previous Rx's Medication Instructions Recorded isosorbide mononitrate 60 mg PO QAM 30 Days #60 tab 01/06/20 Results & Data (ED) Vital Signs Vital Signs - 24 hr 02/12/20 15:01 02/12/20 15:02 02/12/20 15:30 Temperature 36.4 C L Temperature Source Oral Pulse Rate 68 67 66 Pulse Rate from SpO2 Sensor 68 65 Respiratory Rate 20 15 24 Respiratory Effort / Characteristics Non-Labored Spontaneous Respiratory Depth Normal Blood Pressure 150/85 H Blood Pressure Mean 106 Pulse Oximetry 95 95 95 Oxygen Delivery Method Room Air Sepsis Recent Fever Within 48 Hours No Sepsis New/Unexplained Change in Mental Status N/A Sepsis Action Taken by Nursing No Action Required 02/12/20 15:31 02/12/20 16:00 02/12/20 16:01 Temperature Temperature Source Pulse Rate 66 67 67 Pulse Rate from SpO2 Sensor 66 67 67 Respiratory Rate 22 21 26 H Respiratory Effort / Characteristics Respiratory Depth Blood Pressure 163/80 H 167/79 H Blood Pressure Mean 118 101 Pulse Oximetry 95 94 Oxygen Delivery Method Sepsis Recent Fever Within 48 Hours Sepsis New/Unexplained Change in Mental Status Sepsis Action Taken by Nursing 02/12/20 16:33 02/12/20 16:34 02/12/20 17:00 Temperature Temperature Source Pulse Rate 72 70 68 Pulse Rate from SpO2 Sensor 71 70 68 Respiratory Rate 19 21 22 Respiratory Effort / Characteristics Respiratory Depth Blood Pressure 150/83 H 143/79 H Blood Pressure Mean 123 100 Pulse Oximetry 95 95 95 Oxygen Delivery Method Sepsis Recent Fever Within 48 Hours Sepsis New/Unexplained Change in Mental Status Sepsis Action Taken by Nursing 02/12/20 17:01 02/12/20 17:30 02/12/20 18:00 Temperature Temperature Source Pulse Rate 68 68 73 Pulse Rate from SpO2 Sensor 68 69 73 Respiratory Rate 21 21 25 H Respiratory Effort / Characteristics Respiratory Depth Blood Pressure 155/85 H Blood Pressure Mean 115 Pulse Oximetry 96 95 94 Oxygen Delivery Method Sepsis Recent Fever Within 48 Hours Sepsis New/Unexplained Change in Mental Status Sepsis Action Taken by Nursing 02/12/20 18:01 02/12/20 18:30 02/12/20 18:31 Temperature Temperature Source Pulse Rate 72 68 69 Pulse Rate from SpO2 Sensor 72 68 69 Respiratory Rate 24 22 25 H Respiratory Effort / Characteristics Respiratory Depth Blood Pressure 148/106 H 165/82 H Blood Pressure Mean 129 112 Pulse Oximetry 95 95 94 Oxygen Delivery Method Sepsis Recent Fever Within 48 Hours Sepsis New/Unexplained Change in Mental Status Sepsis Action Taken by Nursing 02/12/20 19:00 02/12/20 19:01 02/12/20 19:10 Temperature Temperature Source Pulse Rate 75 75 68 Pulse Rate from SpO2 Sensor Respiratory Rate 24 29 H 22 Respiratory Effort / Characteristics Respiratory Depth Blood Pressure 125/71 Blood Pressure Mean 96 Pulse Oximetry Oxygen Delivery Method Sepsis Recent Fever Within 48 Hours Sepsis New/Unexplained Change in Mental Status Sepsis Action Taken by Nursing 02/12/20 19:32 Temperature Temperature Source Pulse Rate 68 Pulse Rate from SpO2 Sensor Respiratory Rate 22 Respiratory Effort / Characteristics Respiratory Depth Blood Pressure 150/79 H Blood Pressure Mean Pulse Oximetry 98 Oxygen Delivery Method Room Air Sepsis Recent Fever Within 48 Hours Sepsis New/Unexplained Change in Mental Status Sepsis Action Taken by Nursing Laboratory Data Result diagrams: 02/12/20 14:53 02/12/20 14:53 Lab Results 02/12/20 02/12/20 02/12/20 Range/Units 14:53 14:53 14:53 WBC 8.44 (4.8-10.8) K/uL RBC 3.29 L (4.7-6.1) M/uL Hgb 10.2 L (14.0-18.0) g/dL Hct 32.2 L (42-52) % MCV 97.9 (80-100) fL MCH 31.0 (25-34) pg MCHC 31.7 L (32-36) g/dL RDW Std Deviation 51.5 H (36.4-46.3) fL RDW Coeff of Rosio 14.3 (11.5-14.5) % Plt Count 221 (130-400) K/uL MPV 11.9 H (7.4-10.4) fL Immature Gran % (Auto) 0.2 % Neut % (Auto) 69.5 % Lymph % (Auto) 19.1 % [place] % (Auto) 7.7 % Eos % (Auto) 3.1 % Baso % (Auto) 0.4 % Neut # (Auto) 5.87 (1.4-6.5) K/uL Lymph # (Auto) 1.61 (1.2-3.4) K/uL [place] # (Auto) 0.65 H (0.11-0.59) K/uL Eos # (Auto) 0.26 (0-0.5) K/uL Baso # (Auto) 0.03 (0-0.2) K/uL Immature Gran # (Auto) 0.02 (0.00-0.02) K/uL PT 62.0 H (9.0-12.0) Seconds INR 6.5 H* (0.9-1.1) APTT 56.0 H* (21.0-31.0) Seconds PTT Ratio 2.0 Sodium 142 (136-145) mmol/L Potassium 3.5 (3.5-5.1) mmol/L Chloride 106 (98-107) mmol/L Carbon Dioxide 28 (21-32) mmol/L Anion Gap 8.0 (3-11) BUN 18 (7-18) mg/dl Creatinine 1.87 H (0.6-1.4) mg/dl Est Cr Clr Drug Dosing 48.2 ml/min Est GFR ( Amer) 40.4 Est GFR (Non-Af Amer) 34.9 BUN/Creatinine Ratio 9.7 L (10-20) Glucose 167 H (70-99) mg/dl Calcium 8.6 (8.5-10.1) mg/dl Total Bilirubin 0.5 (0.2-1) mg/dl AST 17 (15-37) U/L ALT 19 (12-78) U/L Alkaline Phosphatase 86 (45-117) U/L Troponin I 0.087 H* (0-0.045) ng/ml Total Protein 7.2 (6.4-8.2) gm/dl Albumin 3.2 L (3.4-5.0) gm/dl Globulin 4.0 (2.5-4.0) gm/dl Albumin/Globulin Ratio 0.8 L (0.9-2) Lipase 93 (73-393) U/L SARS-CoV-2 Ag (Rapid) (Negative) 02/12/20 Range/Units 17:07 WBC (4.8-10.8) K/uL RBC (4.7-6.1) M/uL Hgb (14.0-18.0) g/dL Hct (42-52) % MCV (80-100) fL MCH (25-34) pg MCHC (32-36) g/dL RDW Std Deviation (36.4-46.3) fL RDW Coeff of Rosio (11.5-14.5) % Plt Count (130-400) K/uL MPV (7.4-10.4) fL Immature Gran % (Auto) % Neut % (Auto) % Lymph % (Auto) % [place] % (Auto) % Eos % (Auto) % Baso % (Auto) % Neut # (Auto) (1.4-6.5) K/uL Lymph # (Auto) (1.2-3.4) K/uL [place] # (Auto) (0.11-0.59) K/uL Eos # (Auto) (0-0.5) K/uL Baso # (Auto) (0-0.2) K/uL Immature Gran # (Auto) (0.00-0.02) K/uL PT (9.0-12.0) Seconds INR (0.9-1.1) APTT (21.0-31.0) Seconds PTT Ratio Sodium (136-145) mmol/L Potassium (3.5-5.1) mmol/L Chloride (98-107) mmol/L Carbon Dioxide (21-32) mmol/L Anion Gap (3-11) BUN (7-18) mg/dl Creatinine (0.6-1.4) mg/dl Est Cr Clr Drug Dosing ml/min Est GFR ( Amer) Est GFR (Non-Af Amer) BUN/Creatinine Ratio (10-20) Glucose (70-99) mg/dl Calcium (8.5-10.1) mg/dl Total Bilirubin (0.2-1) mg/dl AST (15-37) U/L ALT (12-78) U/L Alkaline Phosphatase (45-117) U/L Troponin I (0-0.045) ng/ml Total Protein (6.4-8.2) gm/dl Albumin (3.4-5.0) gm/dl Globulin (2.5-4.0) gm/dl Albumin/Globulin Ratio (0.9-2) Lipase (73-393) U/L SARS-CoV-2 Ag (Rapid) Negative (Negative) Administered Medications Discontinued Medications Furosemide (Furosemide 40 Mg/4 Ml Vial) 40 mg IV NOW STA Stop: 02/12/20 17:21 Last Admin: 02/12/20 18:02 Dose: 40 mg Documented by: [id number] Sodium Chloride (Nss 1000ml) 500 mls @ 999 mls/hr IV .Q31M ONE Stop: 02/12/20 15:13 Last Admin: 02/12/20 15:32 Dose: 999 mls/hr Documented by: [id number] Discharge Plan Visit Data Chief Complaint: Cardiac Assessment ED Provider: Aaron Jaffe Discharge Problem: CHF (congestive heart failure), Pacemaker malfunction, Elevated troponin Discharge Instructions Interventions: ED Discharge Assessment Last Done: 02/12/20 19:32 Forms Stand Alone Forms: My [facility] Prescriptions Prescriptions: No Action amiodarone 200 mg tablet 200 mg PO BID RF: 0 clopidogrel 75 mg tablet 75 mg PO QAM RF: 0 furosemide 80 mg tablet 80 mg PO QAM RF: 0 nitroglycerin 0.4 mg tablet, sublingual 0.4 mg sublingual DIRECTED PRN (Reason: Chest Pain) RF: 0 omeprazole 20 mg capsule,delayed release(DR/EC) 20 mg PO QAM PRN (Reason: Gi Upset) RF: 0 albuterol sulfate 90 mcg/actuation HFA aerosol inhaler 2 puff INHALATION QID PRN (Reason: Shortness Of Breath Or Wheezing) RF: 0 insulin aspart U-100 [Novolog Flexpen U-100 Insulin] 100 unit/mL (3 mL) insulin pen 0 unit subcut AC RF: 0 Tresiba FlexTouch U-200 200 unit/mL (3 mL) insulin pen 36 unit SUBCUT QAM RF: 0 cyanocobalamin (vitamin B-12) [Vitamin B-12] 1,000 mcg Tablet 1,000 mcg PO QAM RF: 0 ascorbic acid (vitamin C) [Vitamin C] 500 mg Tablet,Chewable 500 mg PO BID RF: 0 docusate sodium 100 mg Capsule 100 mg PO BID RF: 0 atorvastatin 80 mg tablet 80 mg PO QPM RF: 0 metoprolol succinate 100 mg tablet extended release 24 hr 100 mg PO DAILY RF: 0 warfarin 2.5 mg tablet 2.5 mg PO 4XWK RF: 0 cyanocobalamin (vitamin B-12) 1,000 mcg/mL Solution 1,000 mcg IM MO RF: 0 ferrous sulfate 325 mg (65 mg iron) Tablet 325 mg PO BID RF: 0 magnesium oxide 400 mg magnesium Tablet 400 mg PO DAILY RF: 0 warfarin 2.5 mg tablet 1.25 mg PO 3XWK RF: 0 isosorbide mononitrate 30 mg tablet extended release 24 hr 60 mg PO QAM 30 Days Qty: 60 RF: 0 duloxetine 20 mg capsule,delayed release(DR/EC) 20 mg PO QAM RF: 0 lisinopril 5 mg tablet 5 mg PO DAILY RF: 0 Discharge Problem: CHF (congestive heart failure) Qualifiers: Heart failure type: unspecified Heart failure chronicity: unspecified Qualified Code(s): I50.9 - Heart failure, unspecified Pacemaker malfunction Qualifiers: Encounter type: initial encounter Qualified Code(s): T82.111A - Breakdown (mechanical) of cardiac pulse generator (battery), initial encounter
[2020-02-12 15:04] LABS: Basophils # (auto) 0.03 K/uL (0-0.2); Basophils % (auto) 0.4 %; Eosinophils # (auto) 0.26 K/uL (0-0.5); Eosinophils % (auto) 3.1 %; Hematocrit (blood only) 32.2 % (42-52); Hemoglobin 10.2 g/dL (14.0-18.0); Immature Granulocytes # (auto) 0.02 K/uL (0.00-0.02); Immature Granulocytes % (auto) 0.2 %; Lymphocytes # (auto) 1.61 K/uL (1.2-3.4); Lymphocytes % (auto) 19.1 %; Mean Corpuscular Hgb Conc 31.7 g/dL (32-36); Mean Corpuscular Volume 97.9 fL (80-100); Mean Platelet Volume 11.9 fL (7.4-10.4); Monocytes # (auto) 0.65 K/uL (0.11-0.59); Monocytes % (auto) 7.7 %; Neutrophils # (auto) 5.87 K/uL (1.4-6.5); Neutrophils % (auto) 69.5 %; Platelet Count 221 K/uL (130-400); RDW Coefficient of Variation 14.3 % (11.5-14.5); RDW Standard Deviation 51.5 fL (36.4-46.3); Red Blood Count 3.29 M/uL (4.7-6.1); White Blood Count 8.44 K/uL (4.8-10.8)
[2020-02-12 15:26] LABS: Albumin Level 3.2 gm/dl (3.4-5.0); BUN Creatinine Ratio 9.7 (10-20); Calcium 8.6 mg/dl (8.5-10.1); Creatinine Clr Calc Pharmacy 48.2 ml/min; Est GFR (African American) 40.4; Est GFR (Non-African American) 34.9; Potassium 3.5 mmol/L (3.5-5.1)
--- NOTE | 2020-02-12 15:28 | XRay Report ---
XR chest 1V portable CLINICAL HISTORY: Atypical chest pain COMPARISON STUDY: 01/02/2020 FINDINGS: The heart is enlarged. There are postsurgical changes of midline sternotomy and valvular re placement. There is a left subclavian pacer/defibrillator. There are bilateral pleural effusions. The re is radiographic evidence of congestive failure with interstitial edema. There is no lobar consolid ation.[ IMPRESSION: 1. Radiographic evidence of congestive failure with cardiomegaly, bilateral pleural effusions, and in terstitial edema 2. No evidence of lobar consolidation ACT 112: Negative or not required by law. Electronically signed by: Adrien Cruz M.D. 02/12/2020 3:27 PM
[2020-02-12 15:29] LABS: INR 6.5 (0.9-1.1)
[2020-02-12 15:46] LABS: Albumin Globulin Ratio 0.8 (0.9-2); Bilirubin,Total 0.5 mg/dl (0.2-1); Total Protein 7.2 gm/dl (6.4-8.2); Troponin I 0.087 ng/ml (0-0.045)
--- NOTE | 2020-02-12 16:34 | CT Scan Report ---
CT head/brain wo con CLINICAL HISTORY: Dizziness COMPARISON STUDY: No previous studies for comparison. TECHNIQUE: Axial CT of the brain is performed from the vertex to the skull base. IV contrast was not administered for this examination. A dose lowering technique was utilized adhering to the principles of ALARA. CT DOSE: 846.15 mGy.cm FINDINGS: No intra or extra-axial mass lesions are visualized. There is no CT evidence of acute cortical infarc tion. There is no evidence of midline shift. There is no acute hemorrhage. No calvarial fractures ar e visualized. There are patchy white matter hypodensities likely on a small vessel basis. 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 There is no evidence of pathologic ventricular dilatation. There is no evidence of acute sinusitis IMPRESSION: No acute intracranial findings ACT 112: Negative or not required by law. Electronically signed by: Adrien Cruz M.D. 02/12/2020 4:33 PM
[2020-02-12] MEDS ORDERED: FUROSEMIDE 40 MG/4 ML VIAL IV STA (17:20)
--- NOTE | 2020-02-12 17:20 | History & Physical Report ---
Date of Service February 12, 2020 Assessment & Plan (1) CHF (congestive heart failure): 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 Hold PO diuretics Start IV Lasix 40mg BID Daily weight, I/Os, fluid restriction Oxygen support PRN Monitor renal function/electrolytes Cardiology consulted Continue lisinopril, metoprolol Pacemaker malfunction Pacemaker interrogation requested Cardiology consulted Monitor on Tele Supratherapeutic INR Secondary to Coumadin use No acute bleeding issues INR 6.4 Home Coumadin Chronic anemia Baseline hemoglobin ~10 Monitor CBC Mild troponin elevation Likely secondary to type II NE in setting of acute CHF/CKD Trend cardiac enzymes Repeat EKG in a.m. Denies chest pain CKD stage IV Baseline creatinine 2.2-2.4 Creatinine 1.87 Monitor renal function while on diuretics Avoid nephrotoxic agents as able Valvular heart disease S/P aortic, mitral valve replacement ventricular fibrillation S/P AICD Continue home medication Paroxysmal atrial fibrillation Coumadin on hold secondary to supratherapeutic INR Continue amiodarone, metoprolol CAD S/P CABG Continue Plavix, atorvastatin, metoprolol GERD Continue PPI Morbid obesity BMI 45 DVT prophylaxis SCDs Supratherapeutic INR CODE STATUS Full code Disposition PT OT prior to discharge History of Present Illness Chief Complaint: Pacemaker Beeping Primary Care Provider: Glenn Payne PA-C Patient is a 74-year-old male with history of valvular heart disease S/P aortic, mitral valve replacement, CKD stage IV, DM II, paroxysmal atrial fibrillation, CAD S/P CABG, ventricular fibrillation S/P AICD, anemia of chronic disease, GERD, morbid obesity, hypertension, dyslipidemia, pernicious anemia, obstructive sleep apnea and other medical problems presents with history of pacemaker problem. Patient states he noticed his pacemaker to be beeping at about 9 AM this morning and again at about 11:15 AM. Patient is a poor historian. He states having nausea and dizziness but no vomiting while in ED. Pacemaker interrogation was done in ED which is suggestive of RV lead problem and consistent with volume overload. He had difficulty ambulation while in ED. Denies any history of chest pain, SOB, palpitations, orthopnea, diaphoresis, cough, wheezing, hemoptysis, fever, chills, fall, head trauma, LOC, headache, change in vision, vomiting, abdominal pain, blood in stools, diarrhea, dysuria, hematuria. Admits to taking his medications regularly. Chest x-ray showed findings suggestive of congestive heart failure with cardiomegaly, bilateral pleural effusions and interstitial edema. Allergies Allergy/AdvReac Type Severity Reaction Status Date / Time No Known Allergies Allergy Unverified 02/12/20 18:24 Home Medications Medication Instructions Recorded Confirmed Type Tresiba FlexTouch U-200 36 unit SUBCUT QAM 12/07/19 02/12/20 History albuterol sulfate 2 puff INHALATION QID PRN 12/07/19 02/12/20 History amiodarone 200 mg PO BID 12/07/19 02/12/20 History ascorbic acid (vitamin C) [Vitamin 500 mg PO BID 12/07/19 02/12/20 History C] clopidogrel 75 mg PO QAM 12/07/19 02/12/20 History cyanocobalamin (vitamin B-12) 1,000 mcg PO QAM 12/07/19 02/12/20 History [Vitamin B-12] docusate sodium 100 mg PO BID 12/07/19 02/12/20 History furosemide 80 mg PO QAM 12/07/19 02/12/20 History insulin aspart U-100 [Novolog 0 unit SUBCUT AC 12/07/19 02/12/20 History Flexpen U-100 Insulin] nitroglycerin 0.4 mg SUBLINGUAL DIRECTED PRN 12/07/19 02/12/20 History omeprazole 20 mg PO QAM PRN 12/07/19 02/12/20 History atorvastatin 80 mg PO QPM 12/30/19 02/12/20 History cyanocobalamin (vitamin B-12) 1,000 mcg IM MO 12/30/19 02/12/20 History ferrous sulfate 325 mg PO BID 12/30/19 02/12/20 History magnesium oxide 400 mg PO DAILY 12/30/19 02/12/20 History metoprolol succinate 100 mg PO DAILY 12/30/19 02/12/20 History warfarin 1.25 mg PO 3XWK 12/30/19 02/12/20 History warfarin 2.5 mg PO 4XWK 12/30/19 02/12/20 History isosorbide mononitrate 60 mg PO QAM 30 Days #60 tab 01/06/20 02/12/20 Rx duloxetine 20 mg PO QAM 02/12/20 02/12/20 History lisinopril 5 mg PO DAILY 02/12/20 02/12/20 History Past Med/Surg History Medical History CAD (coronary artery disease) 07/2018: coronary artery bypass grafting x1 with reverse saphenous vein from aorta to right coronary artery via endoscopic saphenous vein harvesting; PCI to mid LAD with RIZWAN Chronic HFrEF (heart failure with reduced ejection fraction) Chronic kidney disease CKD (chronic kidney disease) stage 4, GFR 15-29 ml/min Diabetes mellitus, type 2 GERD (gastroesophageal reflux disease) History of ventricular fibrillation Hyperlipidemia Hypertension OBED on CPAP PAF (paroxysmal atrial fibrillation) Pernicious anemia Surgical History H/O aortic valve replacement Status post bioprosthetic AVR in 2004 Aortic valve prosthesis stenosis and mitral regurgitation requiring redo sternotomy jul 21 2013 with redo AVR and subsequent MVR. H/O mitral valve replacement History of appendectomy History of cardiac cath History of colonoscopy History of coronary artery bypass graft x 1 coronary artery bypass grafting x1 with reverse saphenous vein from aorta to right coronary artery via endoscopic saphenous vein harvesting. 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 Beliefs That Will Affect Care: None Current Living Situation: Alone current occupation: retired Other Information That Helps Us Care for You: No Feels Safe at Home: Yes Safety Concerns: Feels Safe At This Time Assistive Devices: Glasses and Walker Review of Systems Review of Systems: All systems reviewed & are unremarkable except as noted in HPI & below Physical Exam Physical Exam: Physical Exam: Vitals signs as noted above General Appearance:Morbid Obesity, no apparent distress Head: normocephalic, Atraumatic Eyes: normal inspection, EOMI Neck: supple, Trachea midline Respiratory/Chest: Decreased breath sounds, + Basal Crackles, No accessory muscle use Cardiovascular: S1, S2, No murmur, +Pacer Abdomen/GI:Soft, Non tender, Bowel sounds present Extremities/Musculoskelatal:normal inspection, + B/L LE edema Neurologic/Psych:AAOX3, grossly no focal neurological deficits Skin: normal color, warm Results & Data Results & Data ([facility]) Vital Signs (Past 12 Hours) Vital Signs Temp Pulse Resp BP Pulse Ox 02/12/20 17:01 68 21 96 02/12/20 17:00 68 22 143/79 H 95 02/12/20 16:34 70 21 150/83 H 95 02/12/20 16:33 72 19 95 02/12/20 16:01 67 26 H 167/79 H 94 02/12/20 16:00 67 21 02/12/20 15:31 66 22 163/80 H 95 02/12/20 15:30 66 24 95 02/12/20 15:02 67 15 95 02/12/20 15:01 36.4 C L 68 20 150/85 H 95 Laboratory Results Short CBC 02/12/20 Range/Units 14:53 WBC 8.44 (4.8-10.8) K/uL Hgb 10.2 L (14.0-18.0) g/dL Hct 32.2 L (42-52) % Plt Count 221 (130-400) K/uL BMP 02/12/20 14:53 Sodium 142 Potassium 3.5 Chloride 106 Carbon Dioxide 28 BUN 18 Creatinine 1.87 H Glucose 167 H Calcium 8.6 Cardiac Enzymes 02/12/20 Range/Units 14:53 Troponin I 0.087 H* (0-0.045) ng/ml Liver Function 02/12/20 Range/Units 14:53 Total Bilirubin 0.5 (0.2-1) mg/dl AST 17 (15-37) U/L ALT 19 (12-78) U/L Alkaline Phosphatase 86 (45-117) U/L Albumin 3.2 L (3.4-5.0) gm/dl Diagnostic Findings CT head: No acute intracranial findings CXR: Radiographic evidence of congestive failure with cardiomegaly, bilateral pleural effusions, and interstitial edema No evidence of lobar consolidation ECG Additional Comments: EKG: Ventricular paced rhythm QTC 444 ? Unspecified pacemaker failure (1) CHF (congestive heart failure) Heart failure chronicity: unspecified Heart failure type: unspecified Qualified Code(s): I50.9 - Heart failure, unspecified
[2020-02-12] MEDS ORDERED: CARBOHYDRATES FOR HYPOGLYCEMIA PO PRN (20:24)
[2020-02-12] MEDS ORDERED: ALBUTEROL HFA 8 GM INHALER INH PRN (20:24)
[2020-02-12] MEDS ORDERED: ACETAMINOPHEN 325 MG TAB PO PRN (20:24)
[2020-02-12] MEDS ORDERED: GLUCOSE 40% GEL 15 GM TUBE PO PRN (20:24)
[2020-02-12] MEDS ORDERED: GLUCAGON FOR INJ 1 MG VIAL SQ PRN (20:24)
[2020-02-12] MEDS ORDERED: POLYETHYLENE (MIRALAX) 17 GM PACK PO PRN (20:24)
[2020-02-12] MEDS ORDERED: GLUCOSE 10 TABS/TUBE PO PRN (20:24)
[2020-02-12] MEDS ORDERED: PROMETHAZINE HCL 6.25 MG in SODIUM CHLORIDE 0.9% 50 ML IV PRN (20:24)
[2020-02-12] MEDS ORDERED: DEXTROSE 50% 50 ML SYRINGE IV PRN (20:24)
[2020-02-12] MEDS ORDERED: PANTOprazole 40 MG TAB PO PRN (20:36)
[2020-02-12] MEDS ORDERED: POTASSIUM CHLORIDE CRTAB 20 MEQ TABCR PO ONE (20:45)
[2020-02-12] MEDS ORDERED: FUROSEMIDE 40 MG/4 ML VIAL IV SCH (21:00)
[2020-02-12] MEDS: INSULIN ASPART 100 UNITS/ML 3 ML PEN SC SCH (21:20)
[2020-02-12] MEDS: DOCUSATE SODIUM 100 MG CAP PO SCH (21:24)
[2020-02-12] MEDS: AMIODARONE 200 MG TAB PO SCH (21:25)
[2020-02-12] MEDS: FERROUS SULFATE 325 MG TAB PO SCH (21:25)
[2020-02-12] MEDS: ATORVASTATIN 40 MG TAB PO SCH (21:26)
[2020-02-12] MEDS: FUROSEMIDE 40 MG in SYRINGE 0 ML IV SCH (21:26)
[2020-02-12] MEDS: ASCORBIC ACID 500 MG TAB PO SCH (21:27)
[2020-02-12] MEDS: INSULIN GLARGINE SOLOSTAR 100 UNITS/ML 3 ML PEN SC SCH (21:29)
[2020-02-12] MEDS ORDERED: ALUMINUM/MAGNESIUM/SIMETH (MAALOX MAX) 30 ML UDC PO PRN (22:26)
--- NOTE | 2020-02-12 22:45 | Electrocardiogram Report ---
Test Reason : Blood Pressure : / mmHG Vent. Rate : 070 BPM Atrial Rate : 070 BPM P-R Int : 000 ms QRS Dur : 144 ms QT Int : 504 ms P-R-T Axes : 019 -79 041 degrees QTc Int : 544 ms Ventricular-paced rhythm Abnormal ECG When compared with ECG of 01-JAN-2020 08:29, Vent. rate has decreased BY 11 BPM Confirmed by Chu Baxter ([id number]) on 02/12/2020 10:45:12 PM Referred By: REFERRED SELF Confirmed By:Chu Baxter
[2020-02-13 06:53] LABS: Basophils # (auto) 0.03 K/uL (0-0.2); Basophils % (auto) 0.4 %; Eosinophils # (auto) 0.28 K/uL (0-0.5); Eosinophils % (auto) 3.6 %; Hematocrit (blood only) 32.5 % (42-52); Hemoglobin 10.1 g/dL (14.0-18.0); Immature Granulocytes # (auto) 0.01 K/uL (0.00-0.02); Immature Granulocytes % (auto) 0.1 %; Lymphocytes # (auto) 1.58 K/uL (1.2-3.4); Lymphocytes % (auto) 20.2 %; Mean Corpuscular Hgb Conc 31.1 g/dL (32-36); Mean Corpuscular Volume 96.4 fL (80-100); Monocytes # (auto) 0.63 K/uL (0.11-0.59); Monocytes % (auto) 8.1 %; Neutrophils # (auto) 5.28 K/uL (1.4-6.5); Neutrophils % (auto) 67.6 %; Platelet Count 204 K/uL (130-400); RDW Coefficient of Variation 14.4 % (11.5-14.5); Red Blood Count 3.37 M/uL (4.7-6.1); White Blood Count 7.81 K/uL (4.8-10.8)
[2020-02-13 07:23] LABS: Prothrombin Time 65.3 Seconds (9.0-12.0)
[2020-02-13 07:28] LABS: BUN Creatinine Ratio 10.3 (10-20); Calcium 8.3 mg/dl (8.5-10.1); Creatinine Clr Calc Pharmacy 52.4 ml/min; Est GFR (Non-African American) 39.7; Magnesium 1.9 mg/dl (1.8-2.4); Potassium 3.4 mmol/L (3.5-5.1)
[2020-02-13 07:31] LABS: INR 6.9 (0.9-1.1)
[2020-02-13 07:34] LABS: Troponin I 0.095 ng/ml (0-0.045)
[2020-02-13 07:35] LABS: Estimated Average Glucose 163 mg/dl; Hemoglobin A1C 7.3 % (4.5-5.6)
[2020-02-13] MEDS ORDERED: POTASSIUM CHLORIDE CRTAB 20 MEQ TABCR PO STA (07:50)
--- NOTE | 2020-02-13 07:50 | Hospitalist Progress Note ---
Date of Service February 13, 2020 Assessment & Plan (1) CHF (congestive heart failure): 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 Held PO diuretics while inpt IV Lasix 40mg BID while inpt Daily weight, I/Os, fluid restriction Oxygen support PRN, pt is on RA Monitor renal function/electrolytes Cardiology consulted Continue lisinopril, metoprolol Concern for pacemaker malfunction Pacemaker interrogation requested - ICD interrogation reveals a transient elevation of lead impedance. Currently within normal limits. Cardiology consulted, recommend No further intervention at this time. Continue ICD interrogations as scheduled. Monitored on Tele while inpt Supratherapeutic INR Secondary to Coumadin use No acute bleeding issues INR 6.9 Hold Coumadin and have INR re-checked in 2-3 days Chronic anemia Baseline hemoglobin ~10 Monitor CBC Mild troponin elevation Likely secondary to type II PA in setting of acute CHF/CKD Trend cardiac enzymes Repeat EKG in a.m. Denies chest pain Cardiology consulted CKD stage IV Baseline creatinine 2.2-2.4 Creatinine 1.87 Monitor renal function while on diuretics Avoid nephrotoxic agents as able Valvular heart disease S/P aortic, mitral valve replacement ventricular fibrillation S/P AICD Continue home medication Paroxysmal atrial fibrillation Coumadin on hold secondary to supratherapeutic INR INR 6.9 Continue amiodarone, metoprolol CAD S/P CABG Continue Plavix, atorvastatin, metoprolol GERD: Continue PPI Morbid obesity BMI 45, counseling on lifestyle modification, diet DVT prophylaxis SCDs Supratherapeutic INR CODE STATUS: Full code Disposition: PT OT prior to discharge Admission and Anticipated Discharge Date Admission Date: February 12, 2020 Subjective Patient is seen in follow-up for possible ICD malfunction, mild CHF. Pt is laying in bed, in NAD. Denies any chest pain, palpitations, shortness of breath. Although feels comfortable right now. Review of Systems Review of Systems: All systems reviewed & are unremarkable except as noted in HPI & below Constitutional: no fever and no chills Respiratory: no cough and no dyspnea Cardiovascular: no chest pain and no palpitations Gastrointestinal: no abdominal pain, no nausea and no vomiting Physical Exam Physical Exam: General Appearance: Morbid Obesity, laying in bed, no apparent distress Head: normocephalic, atraumatic Eyes: normal inspection, EOMI Neck: supple, Trachea midline Respiratory/Chest: Decreased breath sounds, no crackles, no wheezing, no rhonchi, No accessory muscle use Cardiovascular: S1, S2, No murmur, +Pacer Abdomen/GI:Soft, Non tender, Bowel sounds present Extremities/MSK:normal inspection, + trace b/l LE edema Neurologic/Psych:AAOX3, speech fluent, no facial asymmetry, moves extremities spontaneously Skin: normal color, warm Results & Data Results & Data ([facility]) Vital Signs (Past 12 Hours) Vital Signs Temp Pulse Pulse Resp BP Pulse Ox 02/13/20 04:00 36.7 C 65 18 118/73 93 02/13/20 03:46 66 18 93 02/12/20 23:38 36.9 C 67 19 131/78 92 02/12/20 22:43 71 16 92 02/12/20 20:10 37.1 C 70 19 144/83 H 94 Laboratory Results 02/13/20 02/13/20 02/13/20 Range/Units 07:43 06:34 06:34 WBC (4.8-10.8) K/uL RBC (4.7-6.1) M/uL Hgb (14.0-18.0) g/dL Hct (42-52) % MCV (80-100) fL MCH (25-34) pg MCHC (32-36) g/dL RDW Std Deviation (36.4-46.3) fL RDW Coeff of Rosio (11.5-14.5) % Plt Count (130-400) K/uL MPV (7.4-10.4) fL Immature Gran % (Auto) % Neut % (Auto) % Lymph % (Auto) % [place] % (Auto) % Eos % (Auto) % Baso % (Auto) % Neut # (Auto) (1.4-6.5) K/uL Lymph # (Auto) (1.2-3.4) K/uL [place] # (Auto) (0.11-0.59) K/uL Eos # (Auto) (0-0.5) K/uL Baso # (Auto) (0-0.2) K/uL Immature Gran # (Auto) (0.00-0.02) K/uL PT (9.0-12.0) Seconds INR (0.9-1.1) APTT (21.0-31.0) Seconds PTT Ratio Sodium 143 (136-145) mmol/L Potassium 3.4 L (3.5-5.1) mmol/L Chloride 106 (98-107) mmol/L Carbon Dioxide 33 H (21-32) mmol/L Anion Gap 4.0 (3-11) BUN 17 (7-18) mg/dl Creatinine 1.68 H (0.6-1.4) mg/dl Est Cr Clr Drug Dosing 52.4 ml/min Est GFR ( Amer) 46.0 Est GFR (Non-Af Amer) 39.7 BUN/Creatinine Ratio 10.3 (10-20) Glucose 96 (70-99) mg/dl POC Glucose 110 H (70-99) mg/dl Estimat Average Glucose mg/dl Hemoglobin A1c (4.5-5.6) % Calcium 8.3 L (8.5-10.1) mg/dl Magnesium 1.9 (1.8-2.4) mg/dl Total Bilirubin (0.2-1) mg/dl AST (15-37) U/L ALT (12-78) U/L Alkaline Phosphatase (45-117) U/L Troponin I 0.095 H* Cancelled (0-0.045) ng/ml Total Protein (6.4-8.2) gm/dl Albumin (3.4-5.0) gm/dl Globulin (2.5-4.0) gm/dl Albumin/Globulin Ratio (0.9-2) Lipase (73-393) U/L SARS-CoV-2 Ag (Rapid) (Negative) 02/13/20 02/13/20 02/13/20 Range/Units 06:34 06:34 06:34 WBC 7.81 (4.8-10.8) K/uL RBC 3.37 L (4.7-6.1) M/uL Hgb 10.1 L (14.0-18.0) g/dL Hct 32.5 L (42-52) % MCV 96.4 (80-100) fL MCH 30.0 (25-34) pg MCHC 31.1 L (32-36) g/dL RDW Std Deviation 51.0 H (36.4-46.3) fL RDW Coeff of Rosio 14.4 (11.5-14.5) % Plt Count 204 (130-400) K/uL MPV 12.0 H (7.4-10.4) fL Immature Gran % (Auto) 0.1 % Neut % (Auto) 67.6 % Lymph % (Auto) 20.2 % [place] % (Auto) 8.1 % Eos % (Auto) 3.6 % Baso % (Auto) 0.4 % Neut # (Auto) 5.28 (1.4-6.5) K/uL Lymph # (Auto) 1.58 (1.2-3.4) K/uL [place] # (Auto) 0.63 H (0.11-0.59) K/uL Eos # (Auto) 0.28 (0-0.5) K/uL Baso # (Auto) 0.03 (0-0.2) K/uL Immature Gran # (Auto) 0.01 (0.00-0.02) K/uL PT 65.3 H (9.0-12.0) Seconds INR 6.9 H* (0.9-1.1) APTT (21.0-31.0) Seconds PTT Ratio Sodium (136-145) mmol/L Potassium (3.5-5.1) mmol/L Chloride (98-107) mmol/L Carbon Dioxide (21-32) mmol/L Anion Gap (3-11) BUN (7-18) mg/dl Creatinine (0.6-1.4) mg/dl Est Cr Clr Drug Dosing ml/min Est GFR ( Amer) Est GFR (Non-Af Amer) BUN/Creatinine Ratio (10-20) Glucose (70-99) mg/dl POC Glucose (70-99) mg/dl Estimat Average Glucose 163 mg/dl Hemoglobin A1c 7.3 H (4.5-5.6) % Calcium (8.5-10.1) mg/dl Magnesium (1.8-2.4) mg/dl Total Bilirubin (0.2-1) mg/dl AST (15-37) U/L ALT (12-78) U/L Alkaline Phosphatase (45-117) U/L Troponin I (0-0.045) ng/ml Total Protein (6.4-8.2) gm/dl Albumin (3.4-5.0) gm/dl Globulin (2.5-4.0) gm/dl Albumin/Globulin Ratio (0.9-2) Lipase (73-393) U/L SARS-CoV-2 Ag (Rapid) (Negative) 02/12/20 02/12/20 02/12/20 Range/Units 21:36 20:54 17:07 WBC (4.8-10.8) K/uL RBC (4.7-6.1) M/uL Hgb (14.0-18.0) g/dL Hct (42-52) % MCV (80-100) fL MCH (25-34) pg MCHC (32-36) g/dL RDW Std Deviation (36.4-46.3) fL RDW Coeff of Rosio (11.5-14.5) % Plt Count (130-400) K/uL MPV (7.4-10.4) fL Immature Gran % (Auto) % Neut % (Auto) % Lymph % (Auto) % [place] % (Auto) % Eos % (Auto) % Baso % (Auto) % Neut # (Auto) (1.4-6.5) K/uL Lymph # (Auto) (1.2-3.4) K/uL [place] # (Auto) (0.11-0.59) K/uL Eos # (Auto) (0-0.5) K/uL Baso # (Auto) (0-0.2) K/uL Immature Gran # (Auto) (0.00-0.02) K/uL PT (9.0-12.0) Seconds INR (0.9-1.1) APTT (21.0-31.0) Seconds PTT Ratio Sodium (136-145) mmol/L Potassium (3.5-5.1) mmol/L Chloride (98-107) mmol/L Carbon Dioxide (21-32) mmol/L Anion Gap (3-11) BUN (7-18) mg/dl Creatinine (0.6-1.4) mg/dl Est Cr Clr Drug Dosing ml/min Est GFR ( Amer) Est GFR (Non-Af Amer) BUN/Creatinine Ratio (10-20) Glucose (70-99) mg/dl POC Glucose 110 H (70-99) mg/dl Estimat Average Glucose mg/dl Hemoglobin A1c (4.5-5.6) % Calcium (8.5-10.1) mg/dl Magnesium (1.8-2.4) mg/dl Total Bilirubin (0.2-1) mg/dl AST (15-37) U/L ALT (12-78) U/L Alkaline Phosphatase (45-117) U/L Troponin I 0.119 H* (0-0.045) ng/ml Total Protein (6.4-8.2) gm/dl Albumin (3.4-5.0) gm/dl Globulin (2.5-4.0) gm/dl Albumin/Globulin Ratio (0.9-2) Lipase (73-393) U/L SARS-CoV-2 Ag (Rapid) Negative (Negative) 02/12/20 02/12/20 02/12/20 Range/Units 14:53 14:53 14:53 WBC 8.44 (4.8-10.8) K/uL RBC 3.29 L (4.7-6.1) M/uL Hgb 10.2 L (14.0-18.0) g/dL Hct 32.2 L (42-52) % MCV 97.9 (80-100) fL MCH 31.0 (25-34) pg MCHC 31.7 L (32-36) g/dL RDW Std Deviation 51.5 H (36.4-46.3) fL RDW Coeff of Rosio 14.3 (11.5-14.5) % Plt Count 221 (130-400) K/uL MPV 11.9 H (7.4-10.4) fL Immature Gran % (Auto) 0.2 % Neut % (Auto) 69.5 % Lymph % (Auto) 19.1 % [place] % (Auto) 7.7 % Eos % (Auto) 3.1 % Baso % (Auto) 0.4 % Neut # (Auto) 5.87 (1.4-6.5) K/uL Lymph # (Auto) 1.61 (1.2-3.4) K/uL [place] # (Auto) 0.65 H (0.11-0.59) K/uL Eos # (Auto) 0.26 (0-0.5) K/uL Baso # (Auto) 0.03 (0-0.2) K/uL Immature Gran # (Auto) 0.02 (0.00-0.02) K/uL PT 62.0 H (9.0-12.0) Seconds INR 6.5 H* (0.9-1.1) APTT 56.0 H* (21.0-31.0) Seconds PTT Ratio 2.0 Sodium 142 (136-145) mmol/L Potassium 3.5 (3.5-5.1) mmol/L Chloride 106 (98-107) mmol/L Carbon Dioxide 28 (21-32) mmol/L Anion Gap 8.0 (3-11) BUN 18 (7-18) mg/dl Creatinine 1.87 H (0.6-1.4) mg/dl Est Cr Clr Drug Dosing 48.2 ml/min Est GFR ( Amer) 40.4 Est GFR (Non-Af Amer) 34.9 BUN/Creatinine Ratio 9.7 L (10-20) Glucose 167 H (70-99) mg/dl POC Glucose (70-99) mg/dl Estimat Average Glucose mg/dl Hemoglobin A1c (4.5-5.6) % Calcium 8.6 (8.5-10.1) mg/dl Magnesium (1.8-2.4) mg/dl Total Bilirubin 0.5 (0.2-1) mg/dl AST 17 (15-37) U/L ALT 19 (12-78) U/L Alkaline Phosphatase 86 (45-117) U/L Troponin I 0.087 H* (0-0.045) ng/ml Total Protein 7.2 (6.4-8.2) gm/dl Albumin 3.2 L (3.4-5.0) gm/dl Globulin 4.0 (2.5-4.0) gm/dl Albumin/Globulin Ratio 0.8 L (0.9-2) Lipase 93 (73-393) U/L SARS-CoV-2 Ag (Rapid) (Negative) Medications Administered Current Inpatient Medications Acetaminophen (Acetaminophen 325 Mg Tab) 650 mg PO Q4H PRN PRN Reason: Pain or Fever Stop: 03/13/20 20:23 Al Hydrox/Mg Hydrox/Simethicone (Aluminum/Magnesium/Simeth (Maalox Max) 30 Ml Udc) 15 ml PO Q6H PRN PRN Reason: Dyspepsia Stop: 03/13/20 22:25 Last Admin: 02/12/20 22:37 Dose: 15 ml Documented by: Albuterol (Albuterol Hfa 8 Gm Inhaler) 2 puffs INH QIDR PRN PRN Reason: Shortness Of Breath Or Wheezin Stop: 03/13/20 20:23 Amiodarone HCl (Amiodarone 200 Mg Tab) 200 mg PO BID DYLAN Stop: 03/13/20 20:59 Last Admin: 02/12/20 21:25 Dose: 200 mg Documented by: Ascorbic Acid (Ascorbic Acid 500 Mg Tab) 500 mg PO BID DYLAN Stop: 03/13/20 20:59 Last Admin: 02/12/20 21:27 Dose: 500 mg Documented by: Atorvastatin Calcium (Atorvastatin 40 Mg Tab) 80 mg PO QPM DYLAN Stop: 03/13/20 20:59 Last Admin: 02/12/20 21:26 Dose: 80 mg Documented by: Clopidogrel Bisulfate (Clopidogrel Bisulfate 75 Mg Tab) 75 mg PO QAM [facility] Stop: 03/14/20 08:59 Cyanocobalamin (Cyanocobalamin 500 Mcg Tablet (Vitamin B-12)) 1,000 mcg PO QAM [facility] Stop: 03/14/20 08:59 Dextrose (Dextrose 50% 50 Ml Syringe) 25 - 50 ml IV UD PRN; Protocol PRN Reason: Hypoglycemia Protocol Stop: 03/13/20 20:23 Docusate Sodium (Docusate Sodium 100 Mg Cap) 100 mg PO BID DYLAN Stop: 03/13/20 20:59 Last Admin: 02/12/20 21:24 Dose: 100 mg Documented by: Duloxetine HCl (Duloxetine Hcl 20 Mg Cap) 20 mg PO QAM [facility] Stop: 03/14/20 08:59 Ferrous Sulfate (Ferrous Sulfate 325 Mg Tab) 325 mg PO BID DYLAN Stop: 03/13/20 20:59 Last Admin: 02/12/20 21:25 Dose: 325 mg Documented by: Glucagon (Glucagon For Inj 1 Mg Vial) 1 mg SQ UD PRN; Protocol PRN Reason: Hypoglycemia Protocol Stop: 03/13/20 20:23 Glucose (Glucose 10 Tabs/Tube) 4 - 8 tabs PO UD PRN; Protocol PRN Reason: Hypoglycemia Protocol Stop: 03/13/20 20:23 Glucose (Glucose 40% Gel 15 Gm Tube) 15 - 30 gm PO UD PRN; Protocol PRN Reason: Hypoglycemia Protocol Stop: 03/13/20 20:23 Promethazine HCl 6.25 mg/ (Sodium Chloride) 50.25 mls @ 201 mls/hr IV Q6H PRN PRN Reason: Nausea And Vomiting Stop: 03/13/20 20:23 Furosemide 40 mg/ Syringe 4 mls @ 4 mls/min IV BID DYLAN Stop: 03/13/20 20:59 Last Admin: 02/12/20 21:26 Dose: 4 mls/min Documented by: Insulin Aspart (Insulin Aspart 100 Units/Ml 3 Ml Pen) 0 units SC ACHS DYLAN Stop: 03/13/20 20:59 Last Admin: 02/12/20 21:20 Dose: 1 units Documented by: Insulin Glargine (Insulin Glargine Solostar 100 Units/Ml 3 Ml Pen) 10 units SC BID DYLAN Stop: 03/13/20 20:59 Last Admin: 02/12/20 21:29 Dose: 10 units Documented by: Isosorbide Mononitrate (Isosorbide [place] Extended Rel 60 Mg Tabcr) 60 mg PO QAM DYLAN Stop: 03/14/20 08:59 Lisinopril (Lisinopril 5 Mg Tab) 5 mg PO DAILY DYLAN Stop: 03/14/20 08:59 Magnesium Oxide (Magnesium Oxide 400 Mg Tab) 400 mg PO DAILY DYLAN Stop: 03/14/20 08:59 Metoprolol Succinate (Metoprolol Succ 50mg Ext Rel Tab) 100 mg PO DAILY DYLAN Stop: 03/14/20 08:59 Miscellaneous (Carbohydrates For Hypoglycemia ) 15 - 30 gm PO UD PRN PRN Reason: Hypoglycemia Protocol Stop: 03/13/20 20:23 Pantoprazole Sodium (Pantoprazole 40 Mg Tab) 40 mg PO QAM PRN; Protocol PRN Reason: Gi Upset Stop: 03/13/20 20:35 Polyethylene Glycol (Polyethylene (Miralax) 17 Gm Pack) 17 gm PO DAILY PRN PRN Reason: Constipation Stop: 03/13/20 20:23 (1) CHF (congestive heart failure) Heart failure chronicity: unspecified Heart failure type: unspecified Qualified Code(s): I50.9 - Heart failure, unspecified
[2020-02-13] MEDS: DULoxetine HCL 20 MG CAP PO SCH (08:27)
[2020-02-13] MEDS: FUROSEMIDE 40 MG in SYRINGE 0 ML IV SCH ×2 (08:27→21:42)
[2020-02-13] MEDS: FERROUS SULFATE 325 MG TAB PO SCH ×2 (08:27→20:30)
[2020-02-13] MEDS: lisinopril 5 MG TAB PO SCH (08:28)
[2020-02-13] MEDS: MAGNESIUM OXIDE 400 MG TAB PO SCH (08:28)
[2020-02-13] MEDS: CLOPIDOGREL BISULFATE 75 MG TAB PO SCH (08:28)
[2020-02-13] MEDS: ISOSORBIDE MONO EXTENDED REL 60 MG TABCR PO SCH (08:28)
[2020-02-13] MEDS: METOPROLOL SUCC 50MG EXT REL TAB PO SCH (08:29)
[2020-02-13] MEDS: DOCUSATE SODIUM 100 MG CAP PO SCH ×2 (08:29→20:30)
[2020-02-13] MEDS: CYANOCOBALAMIN 500 MCG TABLET (VITAMIN B-12) PO SCH (08:29)
[2020-02-13] MEDS: ASCORBIC ACID 500 MG TAB PO SCH ×2 (08:29→20:32)
[2020-02-13] MEDS: AMIODARONE 200 MG TAB PO SCH ×2 (08:29→20:29)
[2020-02-13] MEDS: INSULIN GLARGINE SOLOSTAR 100 UNITS/ML 3 ML PEN SC SCH ×2 (08:30→20:33)
[2020-02-13] MEDS: INSULIN ASPART 100 UNITS/ML 3 ML PEN SC SCH ×4 (08:31→20:33)
--- NOTE | 2020-02-13 11:09 | Cardiology Consultation ---
Date of Consultation February 13, 2020 Assessment & Plan (1) Malfunction of implantable defibrillator ventricular (ICD) lead: (2) Acute on chronic HFrEF (heart failure with reduced ejection fraction): (3) Supratherapeutic INR: ICD interrogation pending for assessment of RV lead malfunction. Further recommendations pending review. Warfarin will remain on hold at this time. In regard to patient's elevated OptiVol fluid index. I will continue IV Lasix today with plans to transition back to oral diuretic therapy in the next 24 to 48 hours. Other cardiovascular medications will be continued as previously ordered. Addendum: ICD interrogation reveals a transient elevation of lead impedance. Currently within normal limits. No further intervention recommended at this time. Continue ICD interrogations as scheduled. Patient may be discharged to home and resume his regular oral diuretic regimen. History of Present Illness Reason for Consultation: ICD lead malfunction Requesting Physician: Dr. Espinoza Attending Physician: Isidoro Espinoza MD History of Present Illness 74-year-old patient presented to the ER due to "abnormal tone" coming from ICD. Initial interrogation suggesting possible RV lead elevated impedance. Patient denies chest pain or shortness of breath. OptiVol fluid index suggest mild volume overload. He was subsequently prescribed 40 mg IV Lasix twice daily. Fluid balance -150 cc since admission. Weight loss noted. Denies any recent noncompliance with diuretic therapy. Telemetry reveals ventricular paced rhythm. No sustained dysrhythmias. Patient denies any recent chest discomfort, lightheadedness, dizziness, syncope, near syncope, or ICD shocks. Recent history significant for acute myocardial infarction 12/2019 with worsening LV systolic function and troponin greater than 200. Other pertinent history includes a bioprosthetic aortic and mitral valve replacement with ventricular arrhythmias requiring ICD discharges most recently 11/2019. Allergies Allergy/AdvReac Type Severity Reaction Status Date / Time No Known Allergies Allergy Unverified 02/12/20 18:24 Home Medications Medication Instructions Recorded Confirmed Type Tresiba FlexTouch U-200 36 unit SUBCUT QAM 12/07/19 02/12/20 History albuterol sulfate 2 puff INHALATION QID PRN 12/07/19 02/12/20 History amiodarone 200 mg PO BID 12/07/19 02/12/20 History ascorbic acid (vitamin C) [Vitamin 500 mg PO BID 12/07/19 02/12/20 History C] clopidogrel 75 mg PO QAM 12/07/19 02/12/20 History cyanocobalamin (vitamin B-12) 1,000 mcg PO QAM 12/07/19 02/12/20 History [Vitamin B-12] docusate sodium 100 mg PO BID 12/07/19 02/12/20 History furosemide 80 mg PO QAM 12/07/19 02/12/20 History insulin aspart U-100 [Novolog 0 unit SUBCUT AC 12/07/19 02/12/20 History Flexpen U-100 Insulin] nitroglycerin 0.4 mg SUBLINGUAL DIRECTED PRN 12/07/19 02/12/20 History omeprazole 20 mg PO QAM PRN 12/07/19 02/12/20 History atorvastatin 80 mg PO QPM 12/30/19 02/12/20 History cyanocobalamin (vitamin B-12) 1,000 mcg IM MO 12/30/19 02/12/20 History ferrous sulfate 325 mg PO BID 12/30/19 02/12/20 History magnesium oxide 400 mg PO DAILY 12/30/19 02/12/20 History metoprolol succinate 100 mg PO DAILY 12/30/19 02/12/20 History warfarin 1.25 mg PO 3XWK 12/30/19 02/12/20 History warfarin 2.5 mg PO 4XWK 12/30/19 02/12/20 History isosorbide mononitrate 60 mg PO QAM 30 Days #60 tab 01/06/20 02/12/20 Rx duloxetine 20 mg PO QAM 02/12/20 02/12/20 History lisinopril 5 mg PO DAILY 02/12/20 02/12/20 History Patient History Medical History CAD (coronary artery disease) 07/2018: coronary artery bypass grafting x1 with reverse saphenous vein from aorta to right coronary artery via endoscopic saphenous vein harvesting; PCI to mid LAD with RIZWAN Chronic HFrEF (heart failure with reduced ejection fraction) Chronic kidney disease CKD (chronic kidney disease) stage 4, GFR 15-29 ml/min Diabetes mellitus, type 2 GERD (gastroesophageal reflux disease) History of ventricular fibrillation Hyperlipidemia Hypertension OBED on CPAP PAF (paroxysmal atrial fibrillation) Pernicious anemia Surgical History H/O aortic valve replacement Status post bioprosthetic AVR in 2004 Aortic valve prosthesis stenosis and mitral regurgitation requiring redo sternotomy jul 21 2013 with redo AVR and subsequent MVR. H/O mitral valve replacement History of appendectomy History of cardiac cath History of colonoscopy History of coronary artery bypass graft x 1 coronary artery bypass grafting x1 with reverse saphenous vein from aorta to right coronary artery via endoscopic saphenous vein harvesting. History of heart artery stent History of heart valve replacement ICD (implantable cardioverter-defibrillator) in place Family History Father Heart disease [place] @ age 64 Mother , age 34, stomach ca Cancer Social History Smoking Status: Never smoker Second Hand Exposure: No; Hx Alcohol Use: No Hx Substance Use: No Preferred Language: Setswana Communication Ability: Effective Recoverer Required: No Beliefs That Will Affect Care: None Current Living Situation: Alone current occupation: retired Other Information That Helps Us Care for You: No Feels Safe at Home: Yes Safety Concerns: Feels Safe At This Time Assistive Devices: Glasses and Walker Review of Systems Review of Systems: All systems reviewed & are unremarkable except as noted in HPI & below Physical Exam Constitutional: well developed, well nourished and + obese Respiratory: normal respiratory effort; no respiratory distress, no labored breathing and no retractions Auscultation: lungs clear to auscultation bilaterally; no crackles, no rales, no rhonchi and no wheezes Cardiovascular: Rate/Rhythm: regular rate and regular rhythm Heart Sounds: normal S1 and normal S2; no murmur Vessels: no JVD and no carotid bruit Extremities: no edema Gastrointestinal (Abdomen): Inspection/Auscultation: abdomen normal to inspection and normal bowel sounds; abdomen not distended Percussion/Palpation: abdomen soft; abdomen nontender, no guarding and abdomen not rigid Skin: no rashes, warm and dry Neurologic: CN's II-XI intact bilaterally and moves all extremities; no focal motor deficits Psychiatric: A+Ox3, euthymic affect Results & Data ([facility]) Vital Signs (Past 12 Hours) Vital Signs Temp Pulse Pulse Resp BP Pulse Ox 02/13/20 08:13 36.4 C L 63 18 149/84 H 92 02/13/20 04:00 36.7 C 65 18 118/73 93 02/13/20 03:46 66 18 93 02/12/20 23:38 36.9 C 67 19 131/78 92
[2020-02-13] MEDS: ATORVASTATIN 40 MG TAB PO SCH (20:32)
--- NOTE | 2020-02-14 05:45 | Electrocardiogram Report ---
Test Reason : Blood Pressure : / mmHG Vent. Rate : 067 BPM Atrial Rate : 067 BPM P-R Int : 000 ms QRS Dur : 140 ms QT Int : 466 ms P-R-T Axes : 069 -63 044 degrees QTc Int : 492 ms Ventricular-paced rhythm Abnormal ECG When compared with ECG of 12-FEB-2020 14:49, Vent. rate has decreased BY 3 BPM Confirmed by Chu Baxter ([id number]) on 02/14/2020 5:45:00 AM Referred By: REFERRED SELF Confirmed By:Chu Baxter
[2020-02-14 06:52] LABS: Mean Corpuscular Hemoglobin 30.5 pg (25-34); Mean Corpuscular Hgb Conc 31.3 g/dL (32-36); Mean Corpuscular Volume 97.6 fL (80-100); Platelet Count 194 K/uL (130-400); RDW Coefficient of Variation 14.4 % (11.5-14.5); RDW Standard Deviation 51.1 fL (36.4-46.3); Red Blood Count 3.28 M/uL (4.7-6.1)
[2020-02-14 07:09] LABS: Prothrombin Time 56.3 Seconds (9.0-12.0)
[2020-02-14 07:18] LABS: BUN Creatinine Ratio 10.4 (10-20); Calcium 8.5 mg/dl (8.5-10.1); Creatinine Clr Calc Pharmacy 50.4 ml/min; Est GFR (African American) 44.4; Est GFR (Non-African American) 38.3; Potassium 3.4 mmol/L (3.5-5.1)
[2020-02-14] MEDS: DOCUSATE SODIUM 100 MG CAP PO SCH (08:02)
[2020-02-14] MEDS: ASCORBIC ACID 500 MG TAB PO SCH (08:02)
[2020-02-14] MEDS: CLOPIDOGREL BISULFATE 75 MG TAB PO SCH (08:02)
[2020-02-14] MEDS: FERROUS SULFATE 325 MG TAB PO SCH (08:02)
[2020-02-14] MEDS: ISOSORBIDE MONO EXTENDED REL 60 MG TABCR PO SCH (08:02)
[2020-02-14] MEDS: AMIODARONE 200 MG TAB PO SCH (08:02)
[2020-02-14] MEDS: CYANOCOBALAMIN 500 MCG TABLET (VITAMIN B-12) PO SCH (08:03)
[2020-02-14] MEDS: lisinopril 5 MG TAB PO SCH (08:03)
[2020-02-14] MEDS: MAGNESIUM OXIDE 400 MG TAB PO SCH (08:03)
[2020-02-14] MEDS: FUROSEMIDE 40 MG in SYRINGE 0 ML IV SCH (08:03)
[2020-02-14] MEDS: METOPROLOL SUCC 50MG EXT REL TAB PO SCH (08:03)
[2020-02-14] MEDS: DULoxetine HCL 20 MG CAP PO SCH (08:03)
[2020-02-14] MEDS: INSULIN ASPART 100 UNITS/ML 3 ML PEN SC SCH ×2 (08:31→12:12)
[2020-02-14] MEDS: INSULIN GLARGINE SOLOSTAR 100 UNITS/ML 3 ML PEN SC SCH (08:32)
[2020-02-14 08:37] LABS: INR 5.9 (0.9-1.1)
--- NOTE | 2020-02-14 09:25 | Hospitalist Progress Note ---
Date of Service February 14, 2020 Assessment & Plan (1) CHF (congestive heart failure): 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 Held PO diuretics while inpt IV Lasix 40mg BID while inpt Daily weight, I/Os, fluid restriction Oxygen support PRN, pt is on RA Monitor renal function/electrolytes Cardiology consulted - ok to dc home and resume home po lasix Continue lisinopril, metoprolol Concern for pacemaker malfunction Pacemaker interrogation requested - ICD interrogation reveals a transient elevation of lead impedance. Currently within normal limits. Cardiology consulted, recommend No further intervention at this time. Continue ICD interrogations as scheduled. Monitored on Tele while inpt Supratherapeutic INR Secondary to Coumadin use No acute bleeding issues INR 5.9 Hold Coumadin and have INR re-checked in 2-3 days Chronic anemia Baseline hemoglobin ~10 Monitor CBC Mild troponin elevation Likely secondary to type II MN in setting of acute CHF/CKD Trend cardiac enzymes Denies chest pain Cardiology consulted CKD stage IV Baseline creatinine 2.2-2.4 Creatinine 1.7-1.8 now Monitor renal function while on diuretics Avoid nephrotoxic agents as able Valvular heart disease S/P aortic, mitral valve replacement ventricular fibrillation S/P AICD Continue home medication Paroxysmal atrial fibrillation Coumadin on hold secondary to supratherapeutic INR INR 5.9 Continue amiodarone, metoprolol CAD S/P CABG Continue Plavix, atorvastatin, metoprolol GERD: Continue PPI Morbid obesity BMI 45, counseling on lifestyle modification, diet DVT prophylaxis SCDs Supratherapeutic INR CODE STATUS: Full code Disposition: home Admission and Anticipated Discharge Date Admission Date: February 12, 2020 Subjective Patient is seen in follow-up for possible ICD malfunction, mild CHF exacerbation. Pt is sitting up in bed, in NAD. Denies any chest pain, palpitations, shortness of breath. Feels comfortable right now. Planned to dc yesterday evening but there was a problem w/ transportation. INR still elevated - discussed with pt to hold warfarin and have INR re-checked - pt reports that he has anticoagulation clinic appointment for Thursday, will confirm. Review of Systems Review of Systems: All systems reviewed & are unremarkable except as noted in HPI & below Constitutional: no fever and no chills Respiratory: no cough and no dyspnea Cardiovascular: no chest pain and no palpitations Gastrointestinal: no abdominal pain, no nausea and no vomiting Physical Exam Physical Exam: General Appearance: Morbid Obesity, laying in bed, no apparent distress Head: normocephalic, atraumatic Eyes: normal inspection, EOMI Neck: supple, Trachea midline Respiratory/Chest: Decreased breath sounds, no crackles, no wheezing, no rhonchi, No accessory muscle use Cardiovascular: S1, S2, No murmur, +Pacer Abdomen/GI:Soft, Non tender, Bowel sounds present Extremities/MSK:normal inspection, + trace b/l LE edema Neurologic/Psych:AAOX3, speech fluent, no facial asymmetry, moves extremities spontaneously Skin: normal color, warm Results & Data Results & Data ([facility]) Vital Signs (Past 12 Hours) Vital Signs Temp Pulse Pulse Resp BP Pulse Ox 02/14/20 07:22 64 02/14/20 07:16 36.9 C 67 18 128/76 93 02/14/20 02:57 37 C 67 16 145/75 H 92 02/14/20 02:15 70 18 92 02/13/20 22:15 74 18 90 02/13/20 22:00 37 C 68 16 130/64 91 Laboratory Results 02/14/20 02/14/20 02/14/20 Range/Units 07:34 06:22 06:22 WBC 6.90 (4.8-10.8) K/uL RBC 3.28 L (4.7-6.1) M/uL Hgb 10.0 L (14.0-18.0) g/dL Hct 32.0 L (42-52) % MCV 97.6 (80-100) fL MCH 30.5 (25-34) pg MCHC 31.3 L (32-36) g/dL RDW Std Deviation 51.1 H (36.4-46.3) fL RDW Coeff of Rosio 14.4 (11.5-14.5) % Plt Count 194 (130-400) K/uL MPV 12.0 H (7.4-10.4) fL PT (9.0-12.0) Seconds INR (0.9-1.1) Sodium 142 (136-145) mmol/L Potassium 3.4 L (3.5-5.1) mmol/L Chloride 106 (98-107) mmol/L Carbon Dioxide 33 H (21-32) mmol/L Anion Gap 4.0 (3-11) BUN 18 (7-18) mg/dl Creatinine 1.73 H (0.6-1.4) mg/dl Est Cr Clr Drug Dosing 50.4 ml/min Est GFR ( Amer) 44.4 Est GFR (Non-Af Amer) 38.3 BUN/Creatinine Ratio 10.4 (10-20) Glucose 72 (70-99) mg/dl POC Glucose 90 (70-99) mg/dl Calcium 8.5 (8.5-10.1) mg/dl Troponin I (0-0.045) ng/ml 02/14/20 02/13/20 02/13/20 Range/Units 06:22 20:31 16:38 WBC (4.8-10.8) K/uL RBC (4.7-6.1) M/uL Hgb (14.0-18.0) g/dL Hct (42-52) % MCV (80-100) fL MCH (25-34) pg MCHC (32-36) g/dL RDW Std Deviation (36.4-46.3) fL RDW Coeff of Rosio (11.5-14.5) % Plt Count (130-400) K/uL MPV (7.4-10.4) fL PT 56.3 H (9.0-12.0) Seconds INR 5.9 H* (0.9-1.1) Sodium (136-145) mmol/L Potassium (3.5-5.1) mmol/L Chloride (98-107) mmol/L Carbon Dioxide (21-32) mmol/L Anion Gap (3-11) BUN (7-18) mg/dl Creatinine (0.6-1.4) mg/dl Est Cr Clr Drug Dosing ml/min Est GFR ( Amer) Est GFR (Non-Af Amer) BUN/Creatinine Ratio (10-20) Glucose (70-99) mg/dl POC Glucose 119 H 131 H (70-99) mg/dl Calcium (8.5-10.1) mg/dl Troponin I (0-0.045) ng/ml 02/13/20 02/13/20 Range/Units 13:55 11:42 WBC (4.8-10.8) K/uL RBC (4.7-6.1) M/uL Hgb (14.0-18.0) g/dL Hct (42-52) % MCV (80-100) fL MCH (25-34) pg MCHC (32-36) g/dL RDW Std Deviation (36.4-46.3) fL RDW Coeff of Rosio (11.5-14.5) % Plt Count (130-400) K/uL MPV (7.4-10.4) fL PT (9.0-12.0) Seconds INR (0.9-1.1) Sodium (136-145) mmol/L Potassium (3.5-5.1) mmol/L Chloride (98-107) mmol/L Carbon Dioxide (21-32) mmol/L Anion Gap (3-11) BUN (7-18) mg/dl Creatinine (0.6-1.4) mg/dl Est Cr Clr Drug Dosing ml/min Est GFR ( Amer) Est GFR (Non-Af Amer) BUN/Creatinine Ratio (10-20) Glucose (70-99) mg/dl POC Glucose 105 H (70-99) mg/dl Calcium (8.5-10.1) mg/dl Troponin I 0.075 H* (0-0.045) ng/ml Medications Administered Current Inpatient Medications Acetaminophen (Acetaminophen 325 Mg Tab) 650 mg PO Q4H PRN PRN Reason: Pain or Fever Stop: 03/13/20 20:23 Al Hydrox/Mg Hydrox/Simethicone (Aluminum/Magnesium/Simeth (Maalox Max) 30 Ml Udc) 15 ml PO Q6H PRN PRN Reason: Dyspepsia Stop: 03/13/20 22:25 Last Admin: 02/12/20 22:37 Dose: 15 ml Documented by: Albuterol (Albuterol Hfa 8 Gm Inhaler) 2 puffs INH QIDR PRN PRN Reason: Shortness Of Breath Or Wheezin Stop: 03/13/20 20:23 Amiodarone HCl (Amiodarone 200 Mg Tab) 200 mg PO BID DYLAN Stop: 03/13/20 20:59 Last Admin: 02/14/20 08:02 Dose: 200 mg Documented by: Ascorbic Acid (Ascorbic Acid 500 Mg Tab) 500 mg PO BID [facility] Stop: 03/13/20 20:59 Last Admin: 02/14/20 08:02 Dose: 500 mg Documented by: Atorvastatin Calcium (Atorvastatin 40 Mg Tab) 80 mg PO QPM [facility] Stop: 03/13/20 20:59 Last Admin: 02/13/20 20:32 Dose: 80 mg Documented by: Clopidogrel Bisulfate (Clopidogrel Bisulfate 75 Mg Tab) 75 mg PO QAM [facility] Stop: 03/14/20 08:59 Last Admin: 02/14/20 08:02 Dose: 75 mg Documented by: Cyanocobalamin (Cyanocobalamin 500 Mcg Tablet (Vitamin B-12)) 1,000 mcg PO QAM [facility] Stop: 03/14/20 08:59 Last Admin: 02/14/20 08:03 Dose: 1,000 mcg Documented by: Dextrose (Dextrose 50% 50 Ml Syringe) 25 - 50 ml IV UD PRN; Protocol PRN Reason: Hypoglycemia Protocol Stop: 03/13/20 20:23 Docusate Sodium (Docusate Sodium 100 Mg Cap) 100 mg PO BID [facility] Stop: 03/13/20 20:59 Last Admin: 02/14/20 08:02 Dose: 100 mg Documented by: Duloxetine HCl (Duloxetine Hcl 20 Mg Cap) 20 mg PO QAM [facility] Stop: 03/14/20 08:59 Last Admin: 02/14/20 08:03 Dose: 20 mg Documented by: Ferrous Sulfate (Ferrous Sulfate 325 Mg Tab) 325 mg PO BID [facility] Stop: 03/13/20 20:59 Last Admin: 02/14/20 08:02 Dose: 325 mg Documented by: Glucagon (Glucagon For Inj 1 Mg Vial) 1 mg SQ UD PRN; Protocol PRN Reason: Hypoglycemia Protocol Stop: 03/13/20 20:23 Glucose (Glucose 10 Tabs/Tube) 4 - 8 tabs PO UD PRN; Protocol PRN Reason: Hypoglycemia Protocol Stop: 03/13/20 20:23 Glucose (Glucose 40% Gel 15 Gm Tube) 15 - 30 gm PO UD PRN; Protocol PRN Reason: Hypoglycemia Protocol Stop: 03/13/20 20:23 Promethazine HCl 6.25 mg/ (Sodium Chloride) 50.25 mls @ 201 mls/hr IV Q6H PRN PRN Reason: Nausea And Vomiting Stop: 03/13/20 20:23 Furosemide 40 mg/ Syringe 4 mls @ 4 mls/min IV BID DYLAN Stop: 03/13/20 20:59 Last Admin: 02/14/20 08:03 Dose: 4 mls/min Documented by: Insulin Aspart (Insulin Aspart 100 Units/Ml 3 Ml Pen) 0 units SC ACHS [facility]YLAN Stop: 03/13/20 20:59 Last Admin: 02/14/20 08:31 Dose: 2 units Documented by: Insulin Glargine (Insulin Glargine Solostar 100 Units/Ml 3 Ml Pen) 10 units SC BID [facility] Stop: 03/13/20 20:59 Last Admin: 02/14/20 08:32 Dose: 10 units Documented by: Isosorbide Mononitrate (Isosorbide Martin Extended Rel 60 Mg Tabcr) 60 mg PO QAM [facility] Stop: 03/14/20 08:59 Last Admin: 02/14/20 08:02 Dose: 60 mg Documented by: Lisinopril (Lisinopril 5 Mg Tab) 5 mg PO DAILY [facility] Stop: 03/14/20 08:59 Last Admin: 02/14/20 08:03 Dose: 5 mg Documented by: Magnesium Oxide (Magnesium Oxide 400 Mg Tab) 400 mg PO DAILY [facility] Stop: 03/14/20 08:59 Last Admin: 02/14/20 08:03 Dose: 400 mg Documented by: Metoprolol Succinate (Metoprolol Succ 50mg Ext Rel Tab) 100 mg PO DAILY [facility] Stop: 03/14/20 08:59 Last Admin: 02/14/20 08:03 Dose: 100 mg Documented by: Miscellaneous (Carbohydrates For Hypoglycemia ) 15 - 30 gm PO UD PRN PRN Reason: Hypoglycemia Protocol Stop: 03/13/20 20:23 Pantoprazole Sodium (Pantoprazole 40 Mg Tab) 40 mg PO QAM PRN; Protocol PRN Reason: Gi Upset Stop: 03/13/20 20:35 Last Admin: 02/13/20 08:28 Dose: 40 mg Documented by: Polyethylene Glycol (Polyethylene (Miralax) 17 Gm Pack) 17 gm PO DAILY PRN PRN Reason: Constipation Stop: 03/13/20 20:23 (1) CHF (congestive heart failure) Heart failure chronicity: unspecified Heart failure type: unspecified Qualified Code(s): I50.9 - Heart failure, unspecified
[2020-02-14] MEDS ORDERED: POTASSIUM CHLORIDE CRTAB 20 MEQ TABCR PO STA (09:33)
--- NOTE | 2020-02-14 09:41 | Discharge Summary ---
Date of Service February 14, 2020 Admission HPI Per Admitting Provider Patient is a 74-year-old male with history of valvular heart disease S/P aortic, mitral valve replacement, CKD stage IV, DM II, paroxysmal atrial fibrillation, CAD S/P CABG, ventricular fibrillation S/P AICD, anemia of chronic disease, GERD, morbid obesity, hypertension, dyslipidemia, pernicious anemia, obstructive sleep apnea and other medical problems presents with history of pacemaker problem. Patient states he noticed his pacemaker to be beeping at about 9 AM this morning and again at about 11:15 AM. Patient is a poor historian. He states having nausea and dizziness but no vomiting while in ED. Pacemaker interrogation was done in ED which is suggestive of RV lead problem and consistent with volume overload. He had difficulty ambulation while in ED. Denies any history of chest pain, SOB, palpitations, orthopnea, diaphoresis, cough, wheezing, hemoptysis, fever, chills, fall, head trauma, LOC, headache, change in vision, vomiting, abdominal pain, blood in stools, diarrhea, dysuria, hematuria. Admits to taking his medications regularly. Chest x-ray showed findings suggestive of congestive heart failure with cardiomegaly, bilateral pleural effusions and interstitial edema. Admission Exam Per Admitting Provider General Appearance:Morbid Obesity, no apparent distress Head: normocephalic, Atraumatic Eyes: normal inspection, EOMI Neck: supple, Trachea midline Respiratory/Chest: Decreased breath sounds, + Basal Crackles, No accessory muscle use Cardiovascular: S1, S2, No murmur, +Pacer Abdomen/GI:Soft, Non tender, Bowel sounds present Extremities/Musculoskelatal:normal inspection, + B/L LE edema Neurologic/Psych:AAOX3, grossly no focal neurological deficits Skin: normal color, warm Principal Diagnosis Mild acute on chronic heart failure with reduced ejection fraction Concern for malfunction of ICD Supratherapeutic INR Discharge Exam General Appearance: Morbid Obesity, laying in bed, no apparent distress Head: normocephalic, atraumatic Eyes: normal inspection, EOMI Neck: supple, Trachea midline Respiratory/Chest: Decreased breath sounds, no crackles, no wheezing, no rhonchi, No accessory muscle use Cardiovascular: S1, S2, No murmur, +Pacer Abdomen/GI:Soft, Non tender, Bowel sounds present Extremities/MSK:normal inspection, + trace b/l LE edema Neurologic/Psych:AAOX3, speech fluent, no facial asymmetry, moves extremities spontaneously Skin: normal color, warm Discharge Data Allergies Allergy/AdvReac Type Severity Reaction Status Date / Time No Known Allergies Allergy Unverified 02/12/20 18:24 Consultations 02/12/20 17:19 ED Decision to Admit Stat 02/12/20 20:24 Consult Cardiology Routine Consult Case Management - Discharge Planning Routine Ordered Studies 02/12/20 14:43 CT head/brain wo con Stat IMPRESSION: No acute intracranial findings Hospital Course (1) CHF (congestive heart failure): 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 Held PO diuretics while inpt IV Lasix 40mg BID while inpt Daily weight, I/Os, fluid restriction Oxygen support PRN, pt is on RA Monitor renal function/electrolytes Cardiology consulted - ok to dc home and resume home po lasix Continue lisinopril, metoprolol Concern for pacemaker malfunction Pacemaker interrogation requested - ICD interrogation reveals a transient elevation of lead impedance. Currently within normal limits. Cardiology consulted, recommend No further intervention at this time. Continue ICD interrogations as scheduled. Monitored on Tele while inpt Supratherapeutic INR Secondary to Coumadin use No acute bleeding issues INR 5.9 Hold Coumadin and have INR re-checked in 2-3 days Chronic anemia Baseline hemoglobin ~10 Monitor CBC Mild troponin elevation Likely secondary to type II WA in setting of acute CHF/CKD Trend cardiac enzymes Denies chest pain Cardiology consulted CKD stage IV Baseline creatinine 2.2-2.4 Creatinine 1.7-1.8 now Monitor renal function while on diuretics Avoid nephrotoxic agents as able Valvular heart disease S/P aortic, mitral valve replacement ventricular fibrillation S/P AICD Continue home medication Paroxysmal atrial fibrillation Coumadin on hold secondary to supratherapeutic INR INR 5.9 Continue amiodarone, metoprolol CAD S/P CABG Continue Plavix, atorvastatin, metoprolol GERD: Continue PPI Morbid obesity BMI 45, counseling on lifestyle modification, diet Dispo: home Follow up w/ PCP on 02/16 INR check in 2-3 days Total Time Total Time Spent Total Time Spent (In Minutes): 40 Total Time Includes: Examination of the Patient, Discharge Planning, Medication Reconciliation and Communication With Other Providers Discharge Plan Discharge Items Patient Disposition: Home - Self-Care Reason For Visit: PACEMAKER MALFUNCTION Discharge Diagnosis: Mild acute on chronic heart failure with reduced ejection fraction Concern for malfunction of ICD Supratherapeutic INR Activity: Per Instructions section Non-emergency contact: Primary Care Provider and Copywriter Call non-emergency contact if: you have any medication questions and your symptoms worsen Follow-up/Referrals: Glenn Payne PA-C [Primary Care Provider] - (Date & Time 02/17/2020 9:00 AM Provider Miguel Ángel Norris PA-C Department [facility] ) Diet: Low Sodium (2gm) Fluids: 1800ml (7 cups) Addtl Attending Provider Instructions: Your ICD was checked, and revealed transient elevation of lead impedance, which is within normal limits, and so you are safe to go home. Do not take your warfarin today or tomorrow as your INR is elevated. You should have your INR checked by the end of this week. This can either be done with the pharmacy/anticoagulation clinic, or your primary care doctor. Follow-up with primary care provider is recommended, the appointment was scheduled for you for February 16. Addtl [employer] Provider Instructions: Call your Primary Care doctor if any of the following symptoms or problems start or get worse: * Shortness of breath or difficulty breathing * Wake up at night short of breath * Chest pain * Cough * Swelling of your hands, feet, or legs * More fatigued or tired with your normal activity * Palpitations - sudden fast heart beats WEIGHT * Weigh yourself every morning after using the bathroom. * Use the same scale. * Wear the same amount of clothing. * Write your weight down on a chart. * Call your Primary Care doctor if you gain more than 2-3 pounds in 1-2 days. MEDICATIONS * Use this discharge instruction sheet for medication instructions. * Take your medications at the time your doctor ordered. * Do not skip a dose of your medicines. * If you miss a dose of medicine, take it as soon as possible, but DO NOT DOUBLE A DOSE. * Read your medicine information when you get home. * Know all of the side effects of your medicine. If in doubt, ask your pharmacist * Call your Primary Care doctor's office if you have any side effects. * Be sure all of your doctors know what medicine and herbs you take (including cold, flu, and herbal medicine). Take the following with you to your follow-up doctor appointments: * Weight Chart * Medication List * List of questions Do not drink excessive alcohol, beer or wine. Pending Studies at Discharge: No Stand-Alone Forms: My [facility] [address], Smoking Cessation Medications and DC Order Prescriptions: Continued amiodarone 200 mg tablet 200 mg PO BID RF: 0 clopidogrel 75 mg tablet 75 mg PO QAM RF: 0 furosemide 80 mg tablet 80 mg PO QAM RF: 0 nitroglycerin 0.4 mg tablet, sublingual 0.4 mg sublingual DIRECTED PRN (Reason: Chest Pain) RF: 0 omeprazole 20 mg capsule,delayed release(DR/EC) 20 mg PO QAM PRN (Reason: Gi Upset) RF: 0 albuterol sulfate 90 mcg/actuation HFA aerosol inhaler 2 puff INHALATION QID PRN (Reason: Shortness Of Breath Or Wheezing) RF: 0 insulin aspart U-100 [Novolog Flexpen U-100 Insulin] 100 unit/mL (3 mL) insulin pen 0 unit subcut AC RF: 0 Tresiba FlexTouch U-200 200 unit/mL (3 mL) insulin pen 36 unit SUBCUT QAM RF: 0 cyanocobalamin (vitamin B-12) [Vitamin B-12] 1,000 mcg Tablet 1,000 mcg PO QAM RF: 0 ascorbic acid (vitamin C) [Vitamin C] 500 mg Tablet,Chewable 500 mg PO BID RF: 0 docusate sodium 100 mg Capsule 100 mg PO BID RF: 0 atorvastatin 80 mg tablet 80 mg PO QPM RF: 0 metoprolol succinate 100 mg tablet extended release 24 hr 100 mg PO DAILY RF: 0 cyanocobalamin (vitamin B-12) 1,000 mcg/mL Solution 1,000 mcg IM MO RF: 0 ferrous sulfate 325 mg (65 mg iron) Tablet 325 mg PO BID RF: 0 magnesium oxide 400 mg magnesium Tablet 400 mg PO DAILY RF: 0 isosorbide mononitrate 30 mg tablet extended release 24 hr 60 mg PO QAM 30 Days Qty: 60 RF: 0 duloxetine 20 mg capsule,delayed release(DR/EC) 20 mg PO QAM RF: 0 lisinopril 5 mg tablet 5 mg PO DAILY RF: 0 Discontinued warfarin 2.5 mg tablet 2.5 mg PO 4XWK RF: 0 warfarin 2.5 mg tablet 1.25 mg PO 3XWK RF: 0 Discharge Orders: Discharge Order (Routine); Ordered 02/14/20 Ordered By: Isidoro Rosenthal/Other Patient Handouts: Managing Type 2 Diabetes Admission Data Admit Date/Time: 02/12/20 18:50 Attending Provider: Isidoro Espinoza Admit Provider: Delta Benedict Primary Care Provider: Glenn Payne Other Providers: Arya Isaacs ; Delta Benedict
--- NOTE | 2020-02-15 04:54 | Electrocardiogram Report ---
Test Reason : Blood Pressure : / mmHG Vent. Rate : 068 BPM Atrial Rate : 068 BPM P-R Int : 112 ms QRS Dur : 140 ms QT Int : 490 ms P-R-T Axes : -19 -81 040 degrees QTc Int : 521 ms Atrial-sensed ventricular-paced rhythm Abnormal ECG When compared with ECG of 13-FEB-2020 06:34, No significant change was found Confirmed by Chu Baxter ([id number]) on 02/15/2020 4:53:58 AM Referred By: REFERRED SELF Confirmed By:Chu Baxter
== END 2020-02-14 13:26 | disposition home health service (06) ==
LOC: ED 14:34 → INTOOBSV 18:50 → SUATTDRO 18:50 → 2S 18:50 → 2N 02-13 20:18

== ENCOUNTER 2020-07-14 11:32 | Inpatient (IN) ==
[2020-07-14 12:23] LABS: Basophils # (auto) 0.02 K/uL (0-0.2); Basophils % (auto) 0.2 %; Eosinophils # (auto) 0.19 K/uL (0-0.5); Eosinophils % (auto) 1.9 %; Hematocrit (blood only) 29.9 % (42-52); Immature Granulocytes # (auto) 0.01 K/uL (0.00-0.02); Immature Granulocytes % (auto) 0.1 %; Lymphocytes # (auto) 1.11 K/uL (1.2-3.4); Lymphocytes % (auto) 11.2 %; Mean Corpuscular Hemoglobin 31.3 pg (25-34); Mean Corpuscular Hgb Conc 33.4 g/dL (32-36); Mean Corpuscular Volume 93.4 fL (80-100); Mean Platelet Volume 12.1 fL (7.4-10.4); Monocytes # (auto) 0.75 K/uL (0.11-0.59); Monocytes % (auto) 7.6 %; Neutrophils # (auto) 7.81 K/uL (1.4-6.5); Platelet Count 301 K/uL (130-400); RDW Coefficient of Variation 14.5 % (11.5-14.5); RDW Standard Deviation 49.9 fL (36.4-46.3); White Blood Count 9.89 K/uL (4.8-10.8)
--- NOTE | 2020-07-14 12:39 | Emergency Department Note ---
Impression & Plan Hypoxia, CHF (congestive heart failure), SOB (shortness of breath), Cardiomegaly ED Provider Note NAME: MATILDE HOOKS AGE: 74 SEX: M : 1945 ARRIVES VIA: Ambulance INFORMANT: [Patient] ED PROVIDER(S): [Tesfaye Elizonod MD] CHIEF COMPLAINT: Shortness of breath HISTORY OF PRESENT ILLNESS: The patient is a 74-year-old male who has had a few days of shortness of breath that worsened significantly this morning. The patient was noted to be 85% on room air and was placed on oxygen by EMS. The patient does not wear oxygen typically. He has inhalers that he uses o ccasionally. He has noticed some slight increased cough. He has not had any chest pain. The patient states that he has had issues like this with his breathing before. The patient does have a pacer/defibrillator. He has a history of heart failure. He is on diuretics. No known Covid exposures, no fever. No vomiting or diarrhea. REVIEW OF SYSTEMS: See HPI for pertinent positives and negatives. A total of ten systems were reviewed and were otherwise negative. PMHx/PSHx: See Below SOCIAL HISTORY: See Below. PHYSICAL EXAM: GENERAL: Patient is in no acute distress. HEENT: No acute trauma, normocephalic atraumatic, mucous membranes moist, no nasal congestion, no scleral icterus. NECK: No stridor, no adenopathy, no meningismus, trachea is midline. LUNGS: He has some scattered crackles throughout the lung [place] bilaterally, especially at the bases. There is no wheezing. No respiratory distress. Breath sounds are diminished bilaterally. HEART: Heart tones are distant, the rhythm does seem regular. I hear no obvious murmur. ABDOMEN: Soft, nontender, bowel sounds positive, no hernias, no peritonitis. EXTREMITIES: No cyanosis, mild bilateral pedal edema, full range of motion of all the joints without pain or difficulty, no signs for acute trauma. NEUROLOGIC: Oriented x 3, no acute motor or sensory deficits, no focal weakness. SKIN: No rash, no jaundice, no diaphoresis. DIFFERENTIAL DIAGNOSIS: Reactive airway disease, pneumonia, pneumothorax, COPD, CHF, COVID-19, infection, cardiac ischemia, pulmonary embolism, bronchitis, musculoskeletal, gastrointestinal, as well as other pathologies. EMERGENCY DEPARTMENT COURSE/PROCEDURES: ECG: Indication was shortness of breath. The ECG shows an AV pacemaker. The rate is 77. There are no PVCs. No ST elevation. The QTc is 674. Continuous Cardiac Monitoring: An order was placed for continuous cardiac monitoring. The monitor shows a rate of 76 with an AV pacemaker. Critical Care Note: I have personally spent 52 minutes of critical care time in the direct management of this patient. This includes bedside care, interpretation of diagnostic studies, and testing, discussion with consultants, patient, and family members, and other required patient management activities. This 52 minutes is in excess of all separately billable procedures. MEDICAL DECISION MAKING: There is no leukocytosis. The patient is anemic however, he has a history of the same. There is a normal platelet count. INR is elevated at 6.6, he is over anticoagulated however, not actively bleeding. ABG shows a mild alkalosis. No significant CO2 retention. A mild hypoxia was noted. Renal panel testing shows some renal insufficiency with a creatinine of 1.81. His creatinine elevation is consistent with the patient's previous values. There was no worrisome liver enzyme elevation. BNP was significantly elevated at over 21,000, consistent with fluid overload/CHF. Chest film shows cardiomegaly and CHF. Covid testing and influenza testing were negative. ECG shows an AV pacemaker, no acute ischemia. Cardiac enzyme testing x1 is not consistent with acute cardiac injury. The patient presented hypoxic. He was maintained on nasal cannula O2 with an adequate saturation. He received IV Lasix, 80 mg while here in the ED. The patient presents with dyspnea. He was hypoxic. He has a history of CHF and is in heart failure again today. Hospitalization is warranted. I spoke to the patient and case management. The on-call hospitalist was consulted. Past Med/Surg History Medical History CAD (coronary artery disease) 07/2018: coronary artery bypass grafting x1 with reverse saphenous vein from aorta to right coronary artery via endoscopic saphenous vein harvesting; PCI to mid LAD with RIZWAN Chronic HFrEF (heart failure with reduced ejection fraction) Chronic kidney disease CKD (chronic kidney disease) stage 4, GFR 15-29 ml/min Diabetes mellitus, type 2 GERD (gastroesophageal reflux disease) History of ventricular fibrillation Hyperlipidemia Hypertension OBED on CPAP PAF (paroxysmal atrial fibrillation) Pernicious anemia Surgical History H/O aortic valve replacement Status post bioprosthetic AVR in 2004 Aortic valve prosthesis stenosis and mitral regurgitation requiring redo sternotomy jul 21 2013 with redo AVR and subsequent MVR. H/O mitral valve replacement History of appendectomy History of cardiac cath History of colonoscopy History of coronary artery bypass graft x 1 coronary artery bypass grafting x1 with reverse saphenous vein from aorta to right coronary artery via endoscopic saphenous vein harvesting. History of heart artery stent History of heart valve replacement ICD (implantable cardioverter-defibrillator) in place Family History Father Heart disease PA @ age 64 Mother , age 34, stomach ca Cancer Social History Smoking Status: Never smoker Second Hand Exposure: No; Do You Dip or Chew Tobacco: No; Tobacco Cessation Education Requested by Patient: No Hx Alcohol Use: No Hx Substance Use: No Preferred Language: Citizen Of [place] Communication Ability: Effective Transition Assistant Required: No Beliefs That Will Affect Care: None Current Living Situation: Alone current occupation: retired Other Information That Helps Us Care for You: No Feels Safe at Home: Yes Safety Concerns: Feels Safe At This Time Assistive Devices: None Allergies Allergies Allergy/AdvReac Type Severity Reaction Status Date / Time No Known Allergies Allergy Unverified 02/12/20 18:24 Home Meds Home Medications Medication Instructions Recorded Confirmed Tresiba FlexTouch U-200 36 unit SUBCUT QAM 12/07/19 07/14/20 albuterol sulfate 2 puff INHALATION QID PRN 12/07/19 07/14/20 amiodarone 200 mg PO DAILY 12/07/19 07/14/20 ascorbic acid (vitamin C) [Vitamin 500 mg PO BID 12/07/19 07/14/20 C] clopidogrel 75 mg PO QAM 12/07/19 07/14/20 docusate sodium 100 mg PO BID 12/07/19 07/14/20 furosemide 80 mg PO QAM 12/07/19 07/14/20 insulin aspart U-100 [Novolog 0 unit SUBCUT AC 12/07/19 07/14/20 Flexpen U-100 Insulin] nitroglycerin 0.4 mg SUBLINGUAL DIRECTED PRN 12/07/19 07/14/20 omeprazole 20 mg PO QAM PRN 12/07/19 07/14/20 atorvastatin 80 mg PO QPM 12/30/19 07/14/20 cyanocobalamin (vitamin B-12) 1,000 mcg IM MO 12/30/19 07/14/20 magnesium oxide 400 mg PO DAILY 12/30/19 07/14/20 metoprolol succinate 100 mg PO DAILY 12/30/19 07/14/20 duloxetine 20 mg PO QAM 02/12/20 07/14/20 amoxicillin 2,000 mg PO UD 07/14/20 07/14/20 cholecalciferol (vitamin D3) 125 mcg PO Q2D 07/14/20 07/14/20 [Vitamin D3] furosemide 40 mg PO DAILY@1300 07/14/20 07/14/20 warfarin 1.25 mg PO SUMOTUTHFRSA@1600 07/14/20 07/14/20 warfarin 2.5 mg PO We@1600 07/14/20 07/14/20 Previous Rx's Medication Instructions Recorded isosorbide mononitrate 60 mg PO QAM 30 Days #60 tab 01/06/20 Results & Data (ED) Vital Signs Vital Signs - 24 hr 07/14/20 11:40 07/14/20 11:41 07/14/20 11:50 Temperature Temperature Source Pulse Rate 73 73 70 Pulse Rate from SpO2 Sensor 73 73 70 Pulse Rhythm Pulse Strength Respiratory Rate 23 31 H 23 Respiratory Effort / Characteristics Respiratory Depth Respiratory Pattern Blood Pressure 122/69 Blood Pressure Mean 86 Blood Pressure Position Pulse Oximetry 99 99 99 Oxygen Delivery Method Nasal Cannula Nasal Cannula Nasal Cannula Oxygen Flow Rate 4 4 4 Sepsis Recent Fever Within 48 Hours Sepsis New/Unexplained Change in Mental Status Sepsis Action Taken by Nursing 07/14/20 11:53 07/14/20 12:00 07/14/20 12:01 Temperature 36.4 C L Temperature Source Oral Pulse Rate 76 69 69 Pulse Rate from SpO2 Sensor 69 Pulse Rhythm Regular Pulse Strength Normal Respiratory Rate 14 18 5 L Respiratory Effort / Characteristics Non-Labored Spontaneous Respiratory Depth Normal Respiratory Pattern Regular Blood Pressure 122/69 121/56 L Blood Pressure Mean 86 77 Blood Pressure Position Lying Pulse Oximetry 85 L 100 Oxygen Delivery Method Nasal Cannula Nasal Cannula Nasal Cannula Oxygen Flow Rate 4 4 4 Sepsis Recent Fever Within 48 Hours No Sepsis New/Unexplained Change in Mental Status N/A Sepsis Action Taken by Nursing No Action Required 07/14/20 12:10 07/14/20 12:15 07/14/20 12:20 Temperature Temperature Source Pulse Rate 70 68 Pulse Rate from SpO2 Sensor 70 69 Pulse Rhythm Pulse Strength Respiratory Rate 21 26 H Respiratory Effort / Characteristics Respiratory Depth Respiratory Pattern Blood Pressure Blood Pressure Mean Blood Pressure Position Pulse Oximetry 96 100 Oxygen Delivery Method Nasal Cannula Room Air Nasal Cannula Oxygen Flow Rate 4 4 Sepsis Recent Fever Within 48 Hours Sepsis New/Unexplained Change in Mental Status Sepsis Action Taken by Nursing 07/14/20 12:30 07/14/20 12:31 07/14/20 12:32 Temperature Temperature Source Pulse Rate 69 68 68 Pulse Rate from SpO2 Sensor 73 69 Pulse Rhythm Pulse Strength Respiratory Rate 18 17 25 H Respiratory Effort / Characteristics Respiratory Depth Respiratory Pattern Blood Pressure 109/72 Blood Pressure Mean 84 Blood Pressure Position Pulse Oximetry 92 91 Oxygen Delivery Method Nasal Cannula Nasal Cannula Nasal Cannula Oxygen Flow Rate 4 4 4 Sepsis Recent Fever Within 48 Hours Sepsis New/Unexplained Change in Mental Status Sepsis Action Taken by Nursing 07/14/20 12:40 07/14/20 12:50 07/14/20 13:00 Temperature Temperature Source Pulse Rate 69 69 67 Pulse Rate from SpO2 Sensor Pulse Rhythm Pulse Strength Respiratory Rate 31 H 23 15 Respiratory Effort / Characteristics Respiratory Depth Respiratory Pattern Blood Pressure Blood Pressure Mean Blood Pressure Position Pulse Oximetry Oxygen Delivery Method Nasal Cannula Nasal Cannula Nasal Cannula Oxygen Flow Rate 4 4 4 Sepsis Recent Fever Within 48 Hours Sepsis New/Unexplained Change in Mental Status Sepsis Action Taken by Nursing 07/14/20 13:01 07/14/20 13:10 07/14/20 13:20 Temperature Temperature Source Pulse Rate 68 75 67 Pulse Rate from SpO2 Sensor 179 H Pulse Rhythm Pulse Strength Respiratory Rate 17 24 24 Respiratory Effort / Characteristics Respiratory Depth Respiratory Pattern Blood Pressure 111/58 L Blood Pressure Mean 75 Blood Pressure Position Pulse Oximetry Oxygen Delivery Method Nasal Cannula Nasal Cannula Nasal Cannula Oxygen Flow Rate 4 4 4 Sepsis Recent Fever Within 48 Hours Sepsis New/Unexplained Change in Mental Status Sepsis Action Taken by Nursing 07/14/20 13:30 07/14/20 13:31 07/14/20 13:32 Temperature Temperature Source Pulse Rate 67 67 67 Pulse Rate from SpO2 Sensor Pulse Rhythm Pulse Strength Respiratory Rate 27 H 27 H 27 H Respiratory Effort / Characteristics Respiratory Depth Respiratory Pattern Blood Pressure 102/59 L Blood Pressure Mean 73 Blood Pressure Position Pulse Oximetry Oxygen Delivery Method Nasal Cannula Nasal Cannula Nasal Cannula Oxygen Flow Rate 4 4 4 Sepsis Recent Fever Within 48 Hours Sepsis New/Unexplained Change in Mental Status Sepsis Action Taken by Nursing 07/14/20 13:40 Temperature Temperature Source Pulse Rate 73 Pulse Rate from SpO2 Sensor Pulse Rhythm Pulse Strength Respiratory Rate 21 Respiratory Effort / Characteristics Respiratory Depth Respiratory Pattern Blood Pressure Blood Pressure Mean Blood Pressure Position Pulse Oximetry Oxygen Delivery Method Nasal Cannula Oxygen Flow Rate 4 Sepsis Recent Fever Within 48 Hours Sepsis New/Unexplained Change in Mental Status Sepsis Action Taken by [facility] Medications Current Medication List: was personally reviewed by me Laboratory Data Attestation: I reviewed the patient's lab results. Result diagrams: 07/14/20 11:45 07/14/20 11:45 Lab Results 07/14/20 07/14/20 07/14/20 Range/Units 11:45 11:45 11:45 WBC 9.89 (4.8-10.8) K/uL RBC 3.20 L (4.7-6.1) M/uL Hgb 10.0 L (14.0-18.0) g/dL Hct 29.9 L (42-52) % MCV 93.4 (80-100) fL MCH 31.3 (25-34) pg MCHC 33.4 (32-36) g/dL RDW Std Deviation 49.9 H (36.4-46.3) fL RDW Coeff of Rosio 14.5 (11.5-14.5) % Plt Count 301 (130-400) K/uL MPV 12.1 H (7.4-10.4) fL Immature Gran % (Auto) 0.1 % Neut % (Auto) 79.0 % Lymph % (Auto) 11.2 % [place] % (Auto) 7.6 % Eos % (Auto) 1.9 % Baso % (Auto) 0.2 % Neut # (Auto) 7.81 H (1.4-6.5) K/uL Lymph # (Auto) 1.11 L (1.2-3.4) K/uL [place] # (Auto) 0.75 H (0.11-0.59) K/uL Eos # (Auto) 0.19 (0-0.5) K/uL Baso # (Auto) 0.02 (0-0.2) K/uL Immature Gran # (Auto) 0.01 (0.00-0.02) K/uL PT 57.4 H (9.0-12.0) Seconds INR 6.6 H* (0.9-1.1) APTT 50.9 H* (21.0-31.0) Seconds PTT Ratio 1.9 ABG pH (7.35-7.45) ABG pCO2 (35-46) mmHg ABG pO2 (80-95) mmHg ABG HCO3 (19-24) mmol/L ABG O2 Saturation (90-95) % ABG Base Excess (-9-1.8) mEq/L Pedro Test (Pos) Barometric Pressure mm/Hg Oxygen Given Sodium 140 (136-145) mmol/L Potassium 3.3 L (3.5-5.1) mmol/L Chloride 104 (98-107) mmol/L Carbon Dioxide 29 (21-32) mmol/L Anion Gap 7.0 (3-11) BUN 24 H (7-18) mg/dl Creatinine 1.81 H (0.6-1.4) mg/dl Est Cr Clr Drug Dosing 45.9 ml/min Est GFR ( Amer) 42.0 Est GFR (Non-Af Amer) 36.3 BUN/Creatinine Ratio 13.3 (10-20) Glucose 148 H (70-99) mg/dl Calcium 8.6 (8.5-10.1) mg/dl Magnesium 2.2 (1.8-2.4) mg/dl Total Bilirubin 0.9 (0.2-1) mg/dl AST 23 (15-37) U/L ALT 18 (12-78) U/L Alkaline Phosphatase 77 (45-117) U/L Troponin I 0.035 (0-0.045) ng/ml NT-Pro-B Natriuret Pep 71672 H (0-900) pg/ml Total Protein 7.3 (6.4-8.2) gm/dl Albumin 2.7 L (3.4-5.0) gm/dl Globulin 4.6 H (2.5-4.0) gm/dl Albumin/Globulin Ratio 0.6 L (0.9-2) Specimen Hemolysis COVID-19 Eval Order SARS-CoV-2 (PCR) (Negative) Influenza Type A (PCR) (Neg) Influenza Type B (PCR) (Neg) RSV (RT-PCR) (Neg) 07/14/20 07/14/20 07/14/20 Range/Units 11:45 11:45 12:47 WBC (4.8-10.8) K/uL RBC (4.7-6.1) M/uL Hgb (14.0-18.0) g/dL Hct (42-52) % MCV (80-100) fL MCH (25-34) pg MCHC (32-36) g/dL RDW Std Deviation (36.4-46.3) fL RDW Coeff of Rosio (11.5-14.5) % Plt Count (130-400) K/uL MPV (7.4-10.4) fL Immature Gran % (Auto) % Neut % (Auto) % Lymph % (Auto) % [place] % (Auto) % Eos % (Auto) % Baso % (Auto) % Neut # (Auto) (1.4-6.5) K/uL Lymph # (Auto) (1.2-3.4) K/uL [place] # (Auto) (0.11-0.59) K/uL Eos # (Auto) (0-0.5) K/uL Baso # (Auto) (0-0.2) K/uL Immature Gran # (Auto) (0.00-0.02) K/uL PT (9.0-12.0) Seconds INR (0.9-1.1) APTT (21.0-31.0) Seconds PTT Ratio ABG pH 7.49 H (7.35-7.45) ABG pCO2 34 L (35-46) mmHg ABG pO2 78 L (80-95) mmHg ABG HCO3 25 H (19-24) mmol/L ABG O2 Saturation 96.0 H (90-95) % ABG Base Excess 1.9 H (-9-1.8) mEq/L Pedro Test Pos (Pos) Barometric Pressure 730.5 mm/Hg Oxygen Given 4L Sodium (136-145) mmol/L Potassium (3.5-5.1) mmol/L Chloride (98-107) mmol/L Carbon Dioxide (21-32) mmol/L Anion Gap (3-11) BUN (7-18) mg/dl Creatinine (0.6-1.4) mg/dl Est Cr Clr Drug Dosing ml/min Est GFR ( Amer) Est GFR (Non-Af Amer) BUN/Creatinine Ratio (10-20) Glucose (70-99) mg/dl Calcium (8.5-10.1) mg/dl Magnesium (1.8-2.4) mg/dl Total Bilirubin (0.2-1) mg/dl AST (15-37) U/L ALT (12-78) U/L Alkaline Phosphatase (45-117) U/L Troponin I (0-0.045) ng/ml NT-Pro-B Natriuret Pep (0-900) pg/ml Total Protein (6.4-8.2) gm/dl Albumin (3.4-5.0) gm/dl Globulin (2.5-4.0) gm/dl Albumin/Globulin Ratio (0.9-2) Specimen Hemolysis COVID-19 Eval Order CovFluRsv at [facility] SARS-CoV-2 (PCR) NEGATIVE (Negative) Influenza Type A (PCR) Negative (Neg) Influenza Type B (PCR) Negative (Neg) RSV (RT-PCR) Negative (Neg) Administered Medications Amiodarone HCl (Amiodarone 200 Mg Tab) 200 mg PO DAILY DYLAN Stop: 08/13/20 15:30 Last Admin: 07/14/20 16:40 Dose: 200 mg Documented by: [id number] Clopidogrel Bisulfate (Clopidogrel Bisulfate 75 Mg Tab) 75 mg PO QAM DYLAN Stop: 08/13/20 15:30 Last Admin: 07/14/20 16:40 Dose: 75 mg Documented by: [id number] Insulin Aspart (Insulin Aspart 100 Units/Ml 3 Ml Pen) 0 units SC ACHS DYLAN Stop: 08/13/20 16:29 Last Admin: 07/14/20 16:44 Dose: 8 units Documented by: [id number] Cosigned by: [id number] Metoprolol Succinate (Metoprolol Succ 50mg Ext Rel Tab) 100 mg PO DAILY DYLAN Stop: 08/13/20 15:30 Last Admin: 07/14/20 16:40 Dose: 100 mg Documented by: [id number] Discontinued Medications Furosemide (Furosemide 40 Mg/4 Ml Vial) 80 mg IV NOW STA Stop: 07/14/20 13:17 Last Admin: 07/14/20 13:38 Dose: 80 mg Documented by: [id number] Potassium Chloride (Potassium Chloride Crtab 20 Meq Tabcr) 40 meq PO ONE ONE Stop: 07/14/20 15:01 Last Admin: 07/14/20 15:08 Dose: 40 meq Documented by: [id number] Imaging Data Radiologist's Impression: Chest X-Ray 07/14/20 12:11 SINGLE VIEW CHEST CLINICAL HISTORY: Dyspnea. FINDINGS: An AP, portable, upright chest radiograph is compared to study performed dated 02/12/2020. The patient is status post midline sternotomy and cardiac valve surgery. A 3-lead cardiac AICD is unchanged in position and partially obscures the left mid chest. The heart is enlarged noting atherosclerotic calcification of the thoracic aorta. There is pulmonary vascular congestion. Asymmetric bilateral airspace opacities are noted, greatest in the left midlung. There are small pleural effusions with bibasilar consolidation. No pneumothorax is seen. The skeletal structures are osteopenic. The bony thorax is grossly intact. IMPRESSION: 1. Cardiomegaly and AICD with evidence of congestive failure. 2. Asymmetric bilateral airspace likely represent pulmonary edema. Correlate clinically for evidence of a superimposed infectious/inflammatory pneumonitis. 3. There are small pleural effusions with bibasilar consolidation. ACT 112: Negative or not required by law. Electronically signed by: Tesfaye Lock M.D. 07/14/2020 12:53 PM Discharge Plan Visit Data Chief Complaint: Shortness of Breath/Dyspnea ED Provider: Tesfaye Elizondo Discharge Problem: Hypoxia, CHF (congestive heart failure), SOB (shortness of breath), Cardiomegaly Patient Disposition: Admitted As Inpatient Condition: Fair Discharge Instructions Interventions: ED Discharge Assessment Last Done: 07/14/20 15:10 Discharge Problem: CHF (congestive heart failure) Qualifiers: Heart failure type: unspecified Heart failure chronicity: acute on chronic Qualified Code(s): I50.9 - Heart failure, unspecified
[2020-07-14 12:45] LABS: Albumin Globulin Ratio 0.6 (0.9-2); Albumin Level 2.7 gm/dl (3.4-5.0); BUN Creatinine Ratio 13.3 (10-20); Bilirubin,Total 0.9 mg/dl (0.2-1); Calcium 8.6 mg/dl (8.5-10.1); Creatinine Clr Calc Pharmacy 45.9 ml/min; Est GFR (Non-African American) 36.3; Globulin 4.6 gm/dl (2.5-4.0); Magnesium 2.2 mg/dl (1.8-2.4); Potassium 3.3 mmol/L (3.5-5.1); Total Protein 7.3 gm/dl (6.4-8.2); Troponin I 0.035 ng/ml (0-0.045)
[2020-07-14 12:47] LABS: Partial Thromboplastin Ratio 1.9; Prothrombin Time 57.4 Seconds (9.0-12.0)
[2020-07-14 12:52] LABS: INR 6.6 (0.9-1.1); Partial Thromboplastin Time 50.9 Seconds (21.0-31.0)
--- NOTE | 2020-07-14 12:54 | XRay Report ---
SINGLE VIEW CHEST CLINICAL HISTORY: Dyspnea. FINDINGS: An AP, portable, upright chest radiograph is compared to study performed dated 02/12/2020. The patient is status post midline sternotomy and cardiac valve surgery. A 3-lead cardiac AICD is unc hanged in position and partially obscures the left mid chest. The heart is enlarged noting atheroscle rotic calcification of the thoracic aorta. There is pulmonary vascular congestion. Asymmetric bilater al airspace opacities are noted, greatest in the left midlung. There are small pleural effusions with bibasilar consolidation. No pneumothorax is seen. The skeletal structures are osteopenic. The bony t horax is grossly intact. IMPRESSION: 1. Cardiomegaly and AICD with evidence of congestive failure. 2. Asymmetric bilateral airspace likely represent pulmonary edema. Correlate clinically for evidence of a superimposed infectious/inflammatory pneumonitis. 3. There are small pleural effusions with bibasilar consolidation. ACT 112: Negative or not required by law. Electronically signed by: Tesfaye Lock M.D. 07/14/2020 12:53 PM
[2020-07-14 13:01] LABS: Base Excess ABG 1.9 mEq/L (-9-1.8); HCO3 ABG 25 mmol/L (19-24); PCO2 ABG 34 mmHg (35-46); PO2 ABG 78 mmHg (80-95); pH ABG 7.49 (7.35-7.45)
[2020-07-14 13:02] LABS: Allen Test Pos (Pos)
[2020-07-14 13:10] LABS: Influenza A virus by PCR Negative (Neg); Influenza B virus by PCR Negative (Neg); RSV by PCR Negative (Neg); SARS CoV2 RNA(COVID-19) InHosp NEGATIVE (Negative)
[2020-07-14] MEDS ORDERED: FUROSEMIDE 40 MG/4 ML VIAL IV STA (13:16)
--- NOTE | 2020-07-14 14:31 | History & Physical Report ---
Date of Service July 14, 2020 Assessment & Plan (1) Acute on chronic HFrEF (heart failure with reduced ejection fraction): (2) Hypoxia: (3) Supratherapeutic INR: (4) Diabetes mellitus, type 2: (5) CAD (coronary artery disease): (6) H/O mitral valve replacement: (7) PAF (paroxysmal atrial fibrillation): (8) CKD (chronic kidney disease) stage 4, GFR 15-29 ml/min: (9) OBED on CPAP: This is a 74-year-old male who has significant past medical history of ischemic cardiomyopathy, CAD with history of CABG x1 and angioplasty, biventricular AICD in place, chronic HFrEF with diastolic dysfunction, history of aortic valve and mitral valve replacements, PAF anticoagulated on warfarin, HTN, HLD, OBED on CPAP, insulin-dependent T2DM, CKD stage IIIb4, depression, GERD who presents to ED secondary to shortness of breath x1 week. Acute on chronic systolic and diastolic CHF exacerbation CXR showed: 1. Cardiomegaly and AICD with evidence of congestive failure. 2. Asymmetric bilateral airspace likely represent pulmonary edema. 3. Small effusions proBNP elevated to 21,156, previously was 1945 on 12/30/2019 Last ECHO: EF 25 to 30%, grade 2 diastolic dysfunction 12/31/2019 Hold PO diuretics, received 80 mg oral as well as 80 mg IV Continue with 60 mg IV Lasix twice daily Daily weight, I/Os, fluid restriction Oxygen support Monitor renal function/electrolytes Cardiology consulted Obtain echocardiogram Recent pacemaker interrogation on 06/20/2020 Continue metoprolol, lisinopril recently discontinued Hypokalemia Replete, monitor closely with aggressive diuresis Biventricular AICD/pacemaker Last interrogated 06/20/2020 revealed normal functioning pacemaker, battery nearing elective replacement Following with Dr. Sorensen for possible exchange in near future Supratherapeutic INR Secondary to Coumadin use No acute bleeding issues INR 6.6 Home Coumadin Chronic anemia secondary to renal disease Baseline hemoglobin ~10 Monitor CBC CKD stage IV Baseline creatinine 2.2-2.4 Creatinine 1.81 Monitor renal function while on diuretics Avoid nephrotoxic agents as able Valvular heart disease S/P aortic, mitral valve replacement ventricular fibrillation S/P AICD Continue home medication Paroxysmal atrial fibrillation Coumadin on hold secondary to supratherapeutic INR Continue amiodarone, metoprolol CAD S/P CABG Continue Plavix, atorvastatin, metoprolol, Imdur IDDM 2 Last A1c 05/22/2020 6.9 Lantus/NovoLog per protocol Consult glycemic pharmacist in setting of high doses of NovoLog OBED CPAP @ HS GERD Continue PPI Morbid obesity BMI 40 DVT prophylaxis None in setting of Supratherapeutic INR CODE STATUS Full code Disposition PT OT prior to discharge History of Present Illness Chief Complaint: Shortness of breath x1 week. Primary Care Provider: Glenn Payne PA-C This is a 74-year-old male who has significant past medical history of ischemic cardiomyopathy, CAD with history of CABG x1 and angioplasty, biventricular AICD in place, chronic HFrEF with diastolic dysfunction, history of aortic valve and mitral valve replacements, PAF anticoagulated on warfarin, HTN, HLD, OBED on CPAP, insulin-dependent T2DM, CKD stage IIIb4, depression, GERD who presents to ED secondary to shortness of breath x1 week. He elicits over the past week he has been exhibiting increasing shortness of breath with exertion and when he woke up this morning developed shortness of breath at rest. This prompted him to seek ER evaluation. He admits to not being compliant with 1800 mL fluid restriction but is unsure how much he has been drinking. He does not feel he has had a change in diet and denies any increase in salt intake. He has been compliant with his Lasix and last took 80 mg first thing this morning. When he a rrived to ED he was noted to be 85% on room air requiring oxygen supplementation at 4 L to maintain good saturation. He does have history of decompensation of CHF in the past. He lives by himself and denies any recent illness. Denies any known Covid exposure. He denies any fever, chills, sweats, lightheadedness, chest pain, palpitations, hemoptysis, orthopnea, PND, abdominal pain, dysuria, increased urgency or frequency with urination, hematuria, melena or hematochezia. He does elicit to a dry cough that is worse with recumbency. He has been able to tolerate CPAP at bedtime without orthopnea. He does complain of occasional dull epigastric and right upper quadrant ache over the past week but currently this is absent. He denies any josh chest pain with exertion or at rest. His weight this morning was 263. He denies any lower extremity swelling except for his left foot. In ER patient remained hemodynamically stable. He was administered 80 mg of IV Lasix prior to my evaluation. He was noted to have a supratherapeutic INR at 6.6, respiratory alkalosis with a pH of 7.49 and PCO2 of 34. His BUN and his creatinine were stable at 24 and 1.81, potassium low at 3.3, troponin WNL, proBNP 21,156 which is a substantial increase from prior which was 1945. Chest x-ray consistent with pulmonary edema. Allergies Allergy/AdvReac Type Severity Reaction Status Date / Time No Known Allergies Allergy Unverified 02/12/20 18:24 Home Medications Medication Instructions Recorded Confirmed Type Tresiba FlexTouch U-200 36 unit SUBCUT QAM 12/07/19 07/14/20 History albuterol sulfate 2 puff INHALATION QID PRN 12/07/19 07/14/20 History amiodarone 200 mg PO DAILY 12/07/19 07/14/20 History ascorbic acid (vitamin C) [Vitamin 500 mg PO BID 12/07/19 07/14/20 History C] clopidogrel 75 mg PO QAM 12/07/19 07/14/20 History docusate sodium 100 mg PO BID 12/07/19 07/14/20 History furosemide 80 mg PO QAM 12/07/19 07/14/20 History insulin aspart U-100 [Novolog 0 unit SUBCUT AC 12/07/19 07/14/20 History Flexpen U-100 Insulin] nitroglycerin 0.4 mg SUBLINGUAL DIRECTED PRN 12/07/19 07/14/20 History omeprazole 20 mg PO QAM PRN 12/07/19 07/14/20 History atorvastatin 80 mg PO QPM 12/30/19 07/14/20 History cyanocobalamin (vitamin B-12) 1,000 mcg IM MO 12/30/19 07/14/20 History magnesium oxide 400 mg PO DAILY 12/30/19 07/14/20 History metoprolol succinate 100 mg PO DAILY 12/30/19 07/14/20 History isosorbide mononitrate 60 mg PO QAM 30 Days #60 tab 01/06/20 07/14/20 Rx duloxetine 20 mg PO QAM 02/12/20 07/14/20 History amoxicillin 2,000 mg PO UD 07/14/20 07/14/20 History cholecalciferol (vitamin D3) 125 mcg PO Q2D 07/14/20 07/14/20 History [Vitamin D3] furosemide 40 mg PO DAILY@1300 07/14/20 07/14/20 History warfarin 1.25 mg PO SUMOTUTHFRSA@1600 07/14/20 07/14/20 History warfarin 2.5 mg PO We@1600 07/14/20 07/14/20 History Past Med/Surg History Medical History CAD (coronary artery disease) 07/2018: coronary artery bypass grafting x1 with reverse saphenous vein from aorta to right coronary artery via endoscopic saphenous vein harvesting; PCI to mid LAD with RIZWAN Chronic HFrEF (heart failure with reduced ejection fraction) Chronic kidney disease CKD (chronic kidney disease) stage 4, GFR 15-29 ml/min Diabetes mellitus, type 2 GERD (gastroesophageal reflux disease) History of ventricular fibrillation Hyperlipidemia Hypertension OBED on CPAP PAF (paroxysmal atrial fibrillation) Pernicious anemia Surgical History H/O aortic valve replacement Status post bioprosthetic AVR in 2004 Aortic valve prosthesis stenosis and mitral regurgitation requiring redo sternotomy jul 21 2013 with redo AVR and subsequent MVR. H/O mitral valve replacement History of appendectomy History of cardiac cath History of colonoscopy History of coronary artery bypass graft x 1 coronary artery bypass grafting x1 with reverse saphenous vein from aorta to right coronary artery via endoscopic saphenous vein harvesting. 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 Beliefs That Will Affect Care: None Current Living Situation: Alone current occupation: retired Other Information That Helps Us Care for You: No Feels Safe at Home: Yes Safety Concerns: Feels Safe At This Time Assistive Devices: None Review of Systems Review of Systems: All systems reviewed & are unremarkable except as noted in HPI & below Physical Exam Physical Exam: Constitutional: WD/WN, appears older than stated age, vitals as above, NAD, sitting up in bed, pleasant, conversing easily Head: Normocephalic, Atraumatic Eyes: PERRL, conjunctivae normal, anicteric sclerae ENMT: external ear and nose normal, oropharynx normal Neck: trachea midline, no thyromegaly normal visual inspection Respiratory:On 4 L of O2, normal respiratory effort, lungs clear to auscultation, bibasilar rales noted, no wheeze or rhonchi. Normal insp/exp effort, no accessory muscle use Cardiovascular: RRR, aortic valve click noted, pacer site noted, trace lower extremity pretibial edema Vessels: no JVD or carotid bruit Chest: normal inspection of chest Abdomen: normal bowel sounds, soft, nontender, no hepatosplenomegaly Musculoskeletal: no cyanosis or clubbing, extremities motor strength 5/5 Skin: no rashes, warm and dry normal turgor Neurologic: PERRL, EOMI, accommodation nl, no face palsy, no dysarthria CN's II-XI intact bilaterally and moves all extremities Psychiatric: A+Ox3, euthymic affect Lymphatic: no cervical or axillary lymphadenopathy : deferred Results & Data Results & Data ([facility]) Vital Signs (Past 12 Hours) Vital Signs Temp Pulse Resp BP Pulse Ox 07/14/20 13:31 67 27 H 102/59 L 07/14/20 13:30 67 27 H 07/14/20 13:20 67 24 07/14/20 13:10 75 24 07/14/20 13:01 68 17 111/58 L 07/14/20 13:00 67 15 07/14/20 12:50 69 23 07/14/20 12:40 69 31 H 07/14/20 12:32 68 25 H 07/14/20 12:31 68 17 109/72 91 07/14/20 12:30 69 18 92 07/14/20 12:20 68 26 H 100 07/14/20 12:10 70 21 96 07/14/20 12:01 69 5 L 121/56 L 100 07/14/20 12:00 36.4 C L 69 18 07/14/20 11:53 76 14 122/69 85 L 07/14/20 11:50 70 23 99 07/14/20 11:41 73 31 H 99 07/14/20 11:40 73 23 122/69 99 Diagnostic Findings Chest X-Ray 07/14/20 12:11 SINGLE VIEW CHEST CLINICAL HISTORY: Dyspnea. FINDINGS: An AP, portable, upright chest radiograph is compared to study performed dated 02/12/2020. The patient is status post midline sternotomy and cardiac valve surgery. A 3-lead cardiac AICD is unchanged in position and partially obscures the left mid chest. The heart is enlarged noting atherosclerotic calcification of the thoracic aorta. There is pulmonary vascular congestion. Asymmetric bilateral airspace opacities are noted, greatest in the left midlung. There are small pleural effusions with bibasilar consolidation. No pneumothorax is seen. The skeletal structures are osteopenic. The bony thorax is grossly intact. IMPRESSION: 1. Cardiomegaly and AICD with evidence of congestive failure. 2. Asymmetric bilateral airspace likely represent pulmonary edema. Correlate clinically for evidence of a superimposed infectious/inflammatory pneumonitis. 3. There are small pleural effusions with bibasilar consolidation. ACT 112: Negative or not required by law. Electronically signed by: Tesfaye Lock M.D. 07/14/2020 12:53 PM Medications Administered Discontinued Medications Furosemide (Furosemide 40 Mg/4 Ml Vial) 80 mg IV NOW STA Stop: 07/14/20 13:17 Last Admin: 07/14/20 13:38 Dose: 80 mg Documented by: [id number] ECG Rate (beats per minute): 77 Findings: + paced rhythm COVID-19 Results Results COVID-19 Adm Lab Results: RBC 3.20 M/uL (4.7-6.1) L 07/14/20 WBC 9.89 K/uL (4.8-10.8) 07/14/20 Hgb 10.0 g/dL (14.0-18.0) L 07/14/20 Hct 29.9 % (42-52) L 07/14/20 Plt Count 301 K/uL (130-400) 07/14/20 Neutrophils (%) (Auto) 79.0 % 07/14/20 Lymphocytes (%) (Auto) 11.2 % 07/14/20 Monocytes # (Auto) 0.75 K/uL (0.11-0.59) H 07/14/20 Eosinophils # (Auto) 0.19 K/uL (0-0.5) 07/14/20 Immature Granulocyte % (Auto) 0.1 % 07/14/20 Neutrophils # (Auto) 7.81 K/uL (1.4-6.5) H 07/14/20 Lymphocytes # (Auto) 1.11 K/uL (1.2-3.4) L 07/14/20 Monocytes # (Auto) 0.75 K/uL (0.11-0.59) H 07/14/20 Eosinophils # (Auto) 0.19 K/uL (0-0.5) 07/14/20 Basophils # (Auto) 0.02 K/uL (0-0.2) 07/14/20 Immature Granulocyte # (Auto) 0.01 K/uL (0.00-0.02) 07/14/20 Na 140 mmol/L (136-145) 07/14/20 K 3.3 mmol/L (3.5-5.1) L 07/14/20 Cl 104 mmol/L (98-107) 07/14/20 CO2 29 mmol/L (21-32) 07/14/20 Anion Gap 7.0 (3-11) 07/14/20 BUN 24 mg/dl (7-18) H 07/14/20 Creatinine 1.81 mg/dl (0.6-1.4) H 07/14/20 BUN/Creatinine Ratio 13.3 (10-20) 07/14/20 Glucose Level 148 mg/dl (70-99) H 07/14/20 Ca 8.6 mg/dl (8.5-10.1) 07/14/20 Total Bilirubin 0.9 mg/dl (0.2-1) 07/14/20 AST/SGOT 23 U/L (15-37) 07/14/20 ALT/SGPT 18 U/L (12-78) 07/14/20 Alkaline Phosphatase 77 U/L (45-117) 07/14/20 Total Protein 7.3 gm/dl (6.4-8.2) 07/14/20 Albumin 2.7 gm/dl (3.4-5.0) L 07/14/20 Globulin 4.6 gm/dl (2.5-4.0) H 07/14/20 Albumin/Globulin Ratio 0.6 (0.9-2) L 07/14/20 Troponin I 0.035 ng/ml (0-0.045) 07/14/20 ZR-Lgl-Y-Type Natriuretic Pep 11384 pg/ml (0-900) H 07/14/20 PTT 50.9 Seconds (21.0-31.0) H* 07/14/20 INR 6.6 (0.9-1.1) H* 07/14/20 COVID-19 PCR NEGATIVE (Negative) 07/14/20 Influenza Virus Type A (PCR) Negative (Neg) 07/14/20 Influenza Virus Type B (PCR) Negative (Neg) 07/14/20 ABG pH 7.49 (7.35-7.45) H 07/14/20 ABG pCO2 34 mmHg (35-46) L 07/14/20 ABG pO2 78 mmHg (80-95) L 07/14/20 ABG HCO3 25 mmol/L (19-24) H 07/14/20 ABG O2 Saturation 96.0 % (90-95) H 07/14/20 ABG Base Excess 1.9 mEq/L (-9-1.8) H 07/14/20 Chest X-Ray 07/14/20 Code Status & VTE Plan Code Status Full code VTE Prophylaxis Plan VTE Prophylaxis will be ordered: No Reason for no VTE drug order: Contraindicated (Secondary to supratherapeutic INR) Supervising Physician Co-Signing Physician Notes Patient is a 74-year-old male with multiple comorbidities presents with history of worsening shortness of breath since 1 week duration. He admits to not following fluid restriction secondary to oral dryness. Has been taking his diuretics regularly. This found to be hypoxic in the 80s while in ED. Please review HPI for complete details of presentation. Found to have supratherapeutic INR at 6.6. Saturating well on 4 L of supplemental oxygen while in ED. Also has hypokalemia 3.3. Renal function at baseline. On exam patient is obese, no apparent distress, normocephalic atraumatic, lungs normal breath sounds, tyrell ateral crackles, no accessory muscle use, S1-S2, articulate, 1+ peripheral edema, no audible murmur, abdomen soft, nontender, normal bowel sounds, alert, awake, oriented, grossly no focal neurological deficits. Patient is admitted for management of acute respiratory failure with hypoxia secondary to acute systolic and diastolic CHF exacerbation. Will start on IV diuretics. Monitor I's and O's, daily weight, renal function, electrolytes. Cardiology consulted. Replace electrolytes as needed. Agree with holding Coumadin. No intervention needed currently for supratherapeutic INR unless patient develops bleeding. I personally reviewed the record. Patient is interviewed and examined at bedside. Patient's care is coordinated with Ariela Otero PA-C. Please refer to the documentation above for details of patient's presentation and for discussion of other issues.
[2020-07-14] MEDS ORDERED: POTASSIUM CHLORIDE CRTAB 20 MEQ TABCR PO ONE ×2 (15:00→20:00)
[2020-07-14] MEDS ORDERED: GLUCOSE 40% GEL 15 GM TUBE PO PRN (15:31)
[2020-07-14] MEDS ORDERED: ONDANSETRON INJ 2 MG/ML 2 ML VIAL IV PRN (15:31)
[2020-07-14] MEDS ORDERED: GLUCAGON FOR INJ 1 MG VIAL SQ PRN (15:31)
[2020-07-14] MEDS ORDERED: POLYETHYLENE (MIRALAX) 17 GM PACK PO PRN (15:31)
[2020-07-14] MEDS ORDERED: DEXTROSE 50% 50 ML SYRINGE IV PRN (15:31)
[2020-07-14] MEDS ORDERED: CARBOHYDRATES FOR HYPOGLYCEMIA PO PRN (15:31)
[2020-07-14] MEDS ORDERED: GLUCOSE 10 TABS/TUBE PO PRN (15:31)
[2020-07-14] MEDS ORDERED: ALBUTEROL HFA 8 GM INHALER INH PRN (15:31)
[2020-07-14] MEDS ORDERED: ACETAMINOPHEN 325 MG TAB PO PRN (15:31)
[2020-07-14] MEDS ORDERED: PANTOprazole 40 MG TAB PO PRN (15:44)
[2020-07-14] MEDS ORDERED: PHARMACY GLYCEMIC MGMT CONSULT PRN (15:47)
--- NOTE | 2020-07-14 16:19 | Pharmacy Report ---
Pharmacy Glycemic Short Note 2 - Date of Service July 14, 2020 - Glycemic Short BSG Results (Last 24 hours): 07/14/20 07/14/20 11:45 16:06 Glucose 148 H POC Glucose 129 H OUTPATIENT ANTIDIABETIC REGIMEN: * Tresiba (insulin degludec) 36 units SQ AM * NovoLog with meals: 28 units with breakfast + 50 units with lunch + 56 units with dinner + 7 units at HS * Total daily dose = 177 units/day * A1c = 7.3% on 02/13/20 ASSESSMENT: * 74yo T2DM male with unknown degree of outpatient control - last A1c in January was in range but now outdated * Pt is maintained on high dose SQ basal bolus insulin regimen. Regimen is heavily weighted towards prandial insulin * BSG on admit is 148 mg/dl. * Will continue outpatient dosing of basal insulin as long as fasting BSG is in range; slightl decrease or increase for above or below range * Will set aggressive CF/CR per outpatient regimen. Likely, CHO intake will be less inpatient as compared to outpatient so dosing per CHO ratio is preferred to set bolus dosing (outpatient dosing) PLAN FOR INPATIENT GLYCEMIC CONTROL: * Basal insulin * Use Lantus instead of non-formulary Tresiba; Lantus 26-36 units SQ Daily in AM; dose based on BSG (see MAR) * Bolus insulin * NovoLog per scale ACHS or Q6hrs while NPO * Goal Range: Low 110 mg/dL - High 140 mg/dL * Correction Factor: 10 mg/dL/unit * Nutritional / Prandial insulin per carb ratio of 1 unit per 3 grams CHO consumed PLAN FOR DISCHARGE: * A1c pending for 07/15/20. Recs to follow.
[2020-07-14] MEDS: AMIODARONE 200 MG TAB PO SCH (16:40)
[2020-07-14] MEDS: METOPROLOL SUCC 50MG EXT REL TAB PO SCH (16:40)
[2020-07-14] MEDS: CLOPIDOGREL BISULFATE 75 MG TAB PO SCH (16:40)
[2020-07-14] MEDS: INSULIN ASPART 100 UNITS/ML 3 ML PEN SC SCH ×2 (16:44→20:56)
[2020-07-14] MEDS ORDERED: INFLUENZA VACCINE HIGH DOSE 65+ 0.7 ML SYR IM ONE (18:15)
[2020-07-14] MEDS: DOCUSATE SODIUM 100 MG CAP PO SCH (19:33)
[2020-07-14] MEDS: ATORVASTATIN 40 MG TAB PO SCH (19:33)
[2020-07-14] MEDS: ASCORBIC ACID 500 MG TAB PO SCH (19:33)
[2020-07-15 06:04] LABS: Hematocrit (blood only) 30.2 % (42-52); Hemoglobin 9.7 g/dL (14.0-18.0); Mean Corpuscular Hemoglobin 30.3 pg (25-34); Mean Corpuscular Hgb Conc 32.1 g/dL (32-36); Mean Corpuscular Volume 94.4 fL (80-100); Mean Platelet Volume 11.7 fL (7.4-10.4); Platelet Count 307 K/uL (130-400); RDW Coefficient of Variation 14.7 % (11.5-14.5); RDW Standard Deviation 50.4 fL (36.4-46.3); White Blood Count 10.31 K/uL (4.8-10.8)
[2020-07-15 06:23] LABS: Prothrombin Time 58.3 Seconds (9.0-12.0)
[2020-07-15 06:34] LABS: INR 6.7 (0.9-1.1)
[2020-07-15] MEDS ORDERED: PHYTONADIONE 5 MG TAB PO STA (06:39)
[2020-07-15 06:41] LABS: BUN Creatinine Ratio 14.9 (10-20); Calcium 8.8 mg/dl (8.5-10.1); Creatinine Clr Calc Pharmacy 47.4 ml/min; Est GFR (African American) 44.4; Est GFR (Non-African American) 38.3; Magnesium 2.3 mg/dl (1.8-2.4); Potassium 3.3 mmol/L (3.5-5.1)
--- NOTE | 2020-07-15 07:47 | Electrocardiogram Report ---
Test Reason : Blood Pressure : / mmHG Vent. Rate : 077 BPM Atrial Rate : 077 BPM P-R Int : 216 ms QRS Dur : 156 ms QT Int : 596 ms P-R-T Axes : 000 -80 055 degrees QTc Int : 674 ms AV dual-paced rhythm with prolonged AV conduction Abnormal ECG When compared with ECG of 14-FEB-2020 07:00, Vent. rate has increased BY 9 BPM Confirmed by Chu Baxter ([id number]) on 07/15/2020 7:47:30 AM Referred By: REFERRED SELF Confirmed By:Chu Baxter
[2020-07-15] MEDS ORDERED: FUROSEMIDE 40 MG/4 ML VIAL IV SCH (08:00)
[2020-07-15] MEDS: ASCORBIC ACID 500 MG TAB PO SCH ×2 (08:25→19:35)
[2020-07-15] MEDS: DOCUSATE SODIUM 100 MG CAP PO SCH ×2 (08:25→19:35)
[2020-07-15] MEDS: AMIODARONE 200 MG TAB PO SCH (08:26)
[2020-07-15] MEDS: METOPROLOL SUCC 50MG EXT REL TAB PO SCH (08:26)
[2020-07-15] MEDS: CHOLECALCIFEROL 1,000 UNITS 25 MCG TAB PO SCH (08:26)
[2020-07-15] MEDS: ISOSORBIDE MONO EXTENDED REL 60 MG TABCR PO SCH (08:27)
[2020-07-15] MEDS: MAGNESIUM OXIDE 400 MG TAB PO SCH (08:27)
[2020-07-15] MEDS: DULoxetine HCL 20 MG CAP PO SCH (08:32)
[2020-07-15] MEDS: CLOPIDOGREL BISULFATE 75 MG TAB PO SCH (08:32)
[2020-07-15] MEDS: INSULIN ASPART 100 UNITS/ML 3 ML PEN SC SCH ×4 (08:55→21:09)
[2020-07-15] MEDS: INSULIN GLARGINE SOLOSTAR 100 UNITS/ML 3 ML PEN SC SCH (08:56)
[2020-07-15] MEDS ORDERED: FUROSEMIDE 60 MG in SYRINGE 0 ML IV SCH (09:00)
[2020-07-15] MEDS ORDERED: POTASSIUM CHLORIDE CRTAB 20 MEQ TABCR PO ONE (10:00)
[2020-07-15] MEDS: FAMOTIDINE 20 MG TAB PO PRN (11:31)
--- NOTE | 2020-07-15 12:44 | Cardiology Consultation ---
Date of Consultation July 15, 2020 Assessment & Plan (1) Hypoxia: (2) Acute on chronic HFrEF (heart failure with reduced ejection fraction): (3) Malfunction of implantable defibrillator ventricular (ICD) lead: (4) History of ventricular fibrillation: (5) Diabetes mellitus, type 2: (6) Hypertension: (7) OBED on CPAP: (8) CKD (chronic kidney disease) stage 4, GFR 15-29 ml/min: (9) PAF (paroxysmal atrial fibrillation): (10) H/O mitral valve replacement: (11) H/O aortic valve replacement: (12) CAD (coronary artery disease): (13) Pacemaker at end of battery life: Patient presents with 3 weeks of worsening dyspnea with exertion. Upon arrival did examine his volume overloaded with significant asymmetric bilateral airspace likely representing pulmonary edema with small effusions. Has been started on Lasix 60 mg IV twice daily due to renal function, will now increase to 80 mg twice daily. INR elevation likely due to passive congestion, no signs of active bleeding and Coumadin has held. Patient's creatinine currently below baseline with further supports of volume overload. We will start spironolactone 25 mg p.o. daily. Continue to follow electrolytes and replete as necessary. We will have his device interrogated in the a.m., most recent device check of June 20 at approximately 3 months of battery life. History of Present Illness Reason for Consultation: acute on chronic decompensated LV ischemic cardiomyopathy Requesting Physician: Dr. Benedict Attending Physician: Delta Benedict MD History of Present Illness It was my pleasure to see Mr. Durham in cardiac consultation today 07/15/2020. He is a very pleasant yet cardiovascularly complex 74-year-old gentleman who routinely follows with Dr. Sorensen and Bryson Michelle of our cardiology practice. He presented to the emergency department last p.m. at the advice of his neighbor after appearing significantly dyspneic. The patient states he has been having shortness of breath progressively for the last 3 weeks. He states he noted that he would be getting significantly short of breath with any activity and would then take several minutes to recover with rest. He denied any chest pain, palpitations, lightheadedness or dizziness. He states he has been compliant with his medical regimen including recent changes made by nephrology. He has had some abdominal bloating but denies lower extremity swelling. He states he has been compliant with his diet. Upon presentation he was found to be significantly volume overloaded and started on IV diuresis. Since admission he states he is feeling a little bit better but not significantly so. He states he has been actively diuresing. Past medical history as per most recent outpatient cardiology visit:1. Valvular heart disease 1. Bicuspid aortic valve, severe aortic valve stenosis, Status post bioprosthetic AVR in 2004. 2. Aortic valve prosthesis stenosis and significant mitral regurgitation (flail A2 segment of the anterior mitral valve leaflet), status post July 21, 2013 redo sternotomy, redo AVR (23 mm Trifecta), chordal sparing mitral valve replacement with a 31 mm Magna ease valve, and coronary artery bypass grafting x1 with reverse saphenous vein from aorta to right coronary artery via endoscopic saphenous vein harvesting. 3. Postoperative course complicated by bleeding requiring repair of a hole at the aortic valve suture line, paroxysmal atrial fibrillation, and a left bundle branch block 2. Moderately severe LV systolic dysfunction, NYHA Class III congestive heart failure 1. Status post August 31, 2014 biventricular ICD implantation by Dr. Sorensen. 2. Recurrent symptomatic ventricular fibrillation arrests 3. Paroxysmal atrial fibrillation and flutter. 4. [id number] score is 5 points.Chronic coumadin anticoagulation. 5. Chronic renal insufficiency 6. Obstructive sleep apnea 7. Pernicious anemia 8. Hypertension 9. Dyslipidemia 10. Obesity 11. OBED, CPAP therapy Allergies Allergy/AdvReac Type Severity Reaction Status Date / Time No Known Allergies Allergy Unverified 02/12/20 18:24 Home Medications Medication Instructions Recorded Confirmed Type Tresiba FlexTouch U-200 36 unit SUBCUT QAM 12/07/19 07/14/20 History albuterol sulfate 2 puff INHALATION QID PRN 12/07/19 07/14/20 History amiodarone 200 mg PO DAILY 12/07/19 07/14/20 History ascorbic acid (vitamin C) [Vitamin 500 mg PO BID 12/07/19 07/14/20 History C] clopidogrel 75 mg PO QAM 12/07/19 07/14/20 History docusate sodium 100 mg PO BID 12/07/19 07/14/20 History furosemide 80 mg PO QAM 12/07/19 07/14/20 History insulin aspart U-100 [Novolog 0 unit SUBCUT AC 12/07/19 07/14/20 History Flexpen U-100 Insulin] nitroglycerin 0.4 mg SUBLINGUAL DIRECTED PRN 12/07/19 07/14/20 History omeprazole 20 mg PO QAM PRN 12/07/19 07/14/20 History atorvastatin 80 mg PO QPM 12/30/19 07/14/20 History cyanocobalamin (vitamin B-12) 1,000 mcg IM MO 12/30/19 07/14/20 History magnesium oxide 400 mg PO DAILY 12/30/19 07/14/20 History metoprolol succinate 100 mg PO DAILY 12/30/19 07/14/20 History isosorbide mononitrate 60 mg PO QAM 30 Days #60 tab 01/06/20 07/14/20 Rx duloxetine 20 mg PO QAM 02/12/20 07/14/20 History amoxicillin 2,000 mg PO UD 07/14/20 07/14/20 History cholecalciferol (vitamin D3) 125 mcg PO Q2D 07/14/20 07/14/20 History [Vitamin D3] furosemide 40 mg PO DAILY@1300 07/14/20 07/14/20 History warfarin 1.25 mg PO SUMOTUTHFRSA@1600 07/14/20 07/14/20 History warfarin 2.5 mg PO We@1600 07/14/20 07/14/20 History Patient History Medical History CAD (coronary artery disease) 07/2018: coronary artery bypass grafting x1 with reverse saphenous vein from aorta to right coronary artery via endoscopic saphenous vein harvesting; PCI to mid LAD with RIZWAN Chronic HFrEF (heart failure with reduced ejection fraction) Chronic kidney disease CKD (chronic kidney disease) stage 4, GFR 15-29 ml/min Diabetes mellitus, type 2 GERD (gastroesophageal reflux disease) History of ventricular fibrillation Hyperlipidemia Hypertension OBED on CPAP PAF (paroxysmal atrial fibrillation) Pernicious anemia Surgical History H/O aortic valve replacement Status post bioprosthetic AVR in 2004 Aortic valve prosthesis stenosis and mitral regurgitation requiring redo sternotomy jul 21 2013 with redo AVR and subsequent MVR. H/O mitral valve replacement History of appendectomy History of cardiac cath History of colonoscopy History of coronary artery bypass graft x 1 coronary artery bypass grafting x1 with reverse saphenous vein from aorta to right coronary artery via endoscopic saphenous vein harvesting. History of heart artery stent History of heart valve replacement ICD (implantable cardioverter-defibrillator) in place Family History Father Heart disease [place] @ age 64 Mother , age 34, stomach ca Cancer Social History Smoking Status: Never smoker Second Hand Exposure: No; Do You Dip or Chew Tobacco: No; Tobacco Cessation Education Requested by Patient: No Hx Alcohol Use: No Hx Substance Use: No Preferred Language: Slovak Communication Ability: Effective Headstart Teacher Required: No Beliefs That Will Affect Care: None Current Living Situation: Alone current occupation: retired Other Information That Helps Us Care for You: No Feels Safe at Home: Yes Safety Concerns: Feels Safe At This Time Assistive Devices: Glasses, Oxygen - Continuous and Walker Review of Systems Review of Systems: All systems reviewed & are unremarkable except as noted in HPI & below Physical Exam Physical Exam: General: Awake, alert and oriented x 3. No acute distress. HEENT: Normocephalic, atraumatic. Pupils equal, round and reactive to light and accommodation. Extraocular muscles are intact. Anicteric sclera. Moist mucous membranes. Neck: No JVD. No bruit. Cardiovascular: Regular. Positive S-4. Normal S-1 and S-2. No S-3. 3/6 mid to late systolic ejection murmur, greatest at the right sternal border, second intercostal space with radiation to the bilateral carotids. No rubs. Pulmonary: Clear to auscultation bilaterally. No rales, rhonchi, or wheezing. Abdomen: Bowel sounds x 4, soft. No rebound, guarding or tenderness. No organomegaly. Extremities: No clubbing, cyanosis or edema. +2 pedal pulses bilaterally. Skin: Warm and dry. Results & Data ([facility]) Vital Signs (Past 12 Hours) Vital Signs Temp Pulse Pulse Resp BP BP Pulse Ox 07/15/20 10:48 36.4 C L 68 19 128/72 96 07/15/20 08:00 65 07/15/20 07:32 36.7 C 67 20 117/76 98 07/15/20 04:00 36.5 C 67 22 135/79 95 07/15/20 02:15 69 18 91
[2020-07-15] MEDS ORDERED: bisacodyL 10 MG SUPP PR PRN (16:12)
[2020-07-15] MEDS ORDERED: bisacodyL 10 MG SUPP PR ONE (16:13)
[2020-07-15] MEDS: SPIRONOLACTONE 25 MG TAB PO SCH (16:48)
[2020-07-15] MEDS ORDERED: FUROSEMIDE 80 MG in SYRINGE 0 ML IV SCH (17:00)
--- NOTE | 2020-07-15 18:40 | Hospitalist Progress Note ---
Date of Service July 15, 2020 Assessment & Plan (1) Acute on chronic HFrEF (heart failure with reduced ejection fraction): (2) Hypoxia: (3) Supratherapeutic INR: (4) Diabetes mellitus, type 2: (5) CAD (coronary artery disease): (6) H/O mitral valve replacement: (7) PAF (paroxysmal atrial fibrillation): (8) CKD (chronic kidney disease) stage 4, GFR 15-29 ml/min: (9) OBED on CPAP: This is a 74-year-old male who has significant past medical history of ischemic cardiomyopathy, CAD with history of CABG x1 and angioplasty, biventricular AICD in place, chronic HFrEF with diastolic dysfunction, history of aortic valve and mitral valve replacements, PAF anticoagulated on warfarin, HTN, HLD, OBED on CPAP, insulin-dependent T2DM, CKD stage IIIb4, depression, GERD who presents to ED secondary to shortness of breath x1 week. Acute respiratory failure with hypoxia Acute on chronic systolic and diastolic CHF exacerbation CXR: Cardiomegaly and AICD with evidence of congestive failure. Asymmetric bilateral airspace likely represent pulmonary edema. Small effusions -ECHO: EF 25 to 30%, grade 2 diastolic dysfunction based on inferior and posterior segments are severely hypokinetic to akinetic. The apex is severely hypokinetic to akinetic. Otherwise moderate global hypokinesis. Appropriately functioning aortic and mitral valve bioprosthesis. Significant pulmonary hypertension is present. -Continue Lasix 80 mg IV twice daily Started on spironolactone 25 mg daily Monitor Daily weight, I/Os Continue fluid restriction Oxygen support PRN Monitor renal function/electrolytes Appreciate Cardiology Input Plan for device interrogation tomorrow Hypokalemia Replete electrolytes as needed Biventricular AICD/pacemaker Planned for device interrogation tomorrow Supratherapeutic INR Secondary to Coumadin/Hepatic congestion No acute bleeding issues INR 6.6>6.7 Hold Coumadin Chronic anemia secondary to renal disease Baseline hemoglobin ~10 Monitor CBC CKD stage IV Baseline creatinine 2.2-2.4 Creatinine 1.73 Monitor renal function while on diuretics Avoid nephrotoxic agents as able Valvular heart disease S/P aortic, mitral valve replacement ventricular fibrillation S/P AICD Continue home medications Paroxysmal atrial fibrillation Coumadin on hold secondary to supratherapeutic INR Continue amiodarone, metoprolol CAD S/P CABG Continue Plavix, atorvastatin, metoprolol, Imdur IDDM 2 Last A1c 05/22/2020 6.9 Lantus/NovoLog per protocol Consult glycemic pharmacist in setting of high doses of NovoLog OBED CPAP @ HS GERD Continue PPI Morbid obesity BMI 40 DVT Px: Supratherapeutic INR CODE STATUS Full code Disposition PT OT prior to discharge Admission and Anticipated Discharge Date Admission Date: July 14, 2020 Subjective Patient is seen and examined at bedside Shortness of breath about the same as yesterday Reports nausea associated with constipation Denies chest pain, dizziness, abdominal pain Offers no other complaints Review of Systems Review of Systems: All systems reviewed & are unremarkable except as noted in HPI & below Physical Exam Physical Exam: Physical Exam: Vitals signs as noted above General Appearance:Obese, no apparent distress Head: normocephalic, Atraumatic Eyes: normal inspection, EOMI Neck: supple, Trachea midline Respiratory/Chest: Normal breath sounds, B/L scattered crackles Cardiovascular: S1, S2, + murmur Abdomen/GI:Soft, Non tender, Bowel sounds present Extremities/Musculoskeletal:normal inspection, Trace pedal edema Neurologic/Psych:AAOX3, grossly no focal neurological deficits Skin: normal color, warm Results & Data Results & Data ([facility]) Vital Signs (Past 12 Hours) Vital Signs Temp Pulse Pulse Resp BP BP Pulse Ox 07/15/20 10:48 36.4 C L 68 19 128/72 96 07/15/20 08:00 65 07/15/20 07:32 36.7 C 67 20 117/76 98 Laboratory Results Short CBC 07/15/20 Range/Units 05:26 WBC 10.31 (4.8-10.8) K/uL Hgb 9.7 L (14.0-18.0) g/dL Hct 30.2 L (42-52) % Plt Count 307 (130-400) K/uL BMP 07/15/20 05:26 Sodium 142 Potassium 3.3 L Chloride 106 Carbon Dioxide 30 BUN 26 H Creatinine 1.73 H Glucose 85 Calcium 8.8
[2020-07-15] MEDS: ATORVASTATIN 40 MG TAB PO SCH (19:34)
[2020-07-15] MEDS: POTASSIUM CHLORIDE 10 MEQ TABCR PO SCH (19:34)
[2020-07-16] MEDS ORDERED: ALBUT/IPRATROP 3MG/0.5MG NEB 3 ML VIAL NEB STA (05:04)
[2020-07-16] MEDS ORDERED: FUROSEMIDE 80 MG in SYRINGE 0 ML IV ONE (06:15)
[2020-07-16] MEDS ORDERED: ALBUMIN 25% 12.5 GM/50 ML VIAL IV ONE (06:15)
[2020-07-16 06:27] LABS: Base Excess ABG 2.5 mEq/L (-9-1.8); HCO3 ABG 26 mmol/L (19-24); Oxygen Saturation ABG 95.7 % (90-95); PCO2 ABG 35 mmHg (35-46); PO2 ABG 74 mmHg (80-95); pH ABG 7.49 (7.35-7.45)
[2020-07-16 06:31] LABS: Allen Test Pos (Pos)
[2020-07-16 06:40] LABS: INR 2.4 (0.9-1.1); Partial Thromboplastin Ratio 1.4; Prothrombin Time 22.8 Seconds (9.0-12.0)
[2020-07-16 06:43] LABS: Estimated Average Glucose 148 mg/dl; Hemoglobin A1C 6.8 % (4.5-5.6)
[2020-07-16 06:49] LABS: Hematocrit (blood only) 28.8 % (42-52); Hemoglobin 9.4 g/dL (14.0-18.0); Mean Corpuscular Hemoglobin 30.3 pg (25-34); Mean Corpuscular Hgb Conc 32.6 g/dL (32-36); Mean Corpuscular Volume 92.9 fL (80-100); Platelet Count 323 K/uL (130-400); White Blood Count 11.96 K/uL (4.8-10.8)
[2020-07-16 06:58] LABS: BUN Creatinine Ratio 15.6 (10-20); Calcium 8.5 mg/dl (8.5-10.1); Creatinine Clr Calc Pharmacy 46.9 ml/min; Est GFR (African American) 43.5; Est GFR (Non-African American) 37.5; Magnesium 2.2 mg/dl (1.8-2.4); Potassium 3.7 mmol/L (3.5-5.1)
--- NOTE | 2020-07-16 08:22 | XRay Report ---
XR chest 1V portable CLINICAL HISTORY: low o2 COMPARISON STUDY: Chest radiograph July 14, 2020. FINDINGS: A left subclavian biventricular pacer/AICD, median sternotomy wires and prosthetic cardiac valve are noted. Marked cardiomegaly is unchanged. Small bilateral pleural effusions are unchanged. T here is persistent pulmonary edema and asymmetric left lung airspace opacities. Findings slightly imp roved. There is no pneumothorax. IMPRESSION: 1. Interstitial thickening in bilateral airspace opacities which are slightly improved. The findings suggest pulmonary edema. Left lung and right basilar airspace opacity may reflect alveolar edema or a superimposed infectious process. 2. Small bilateral pleural effusions ACT 112: Negative or not required by law. Electronically signed by: Ayo Sage M.D. 07/16/2020 8:21 AM
[2020-07-16] MEDS: FAMOTIDINE 20 MG TAB PO PRN (08:37)
[2020-07-16] MEDS: SPIRONOLACTONE 25 MG TAB PO SCH (08:37)
[2020-07-16] MEDS: ASCORBIC ACID 500 MG TAB PO SCH ×2 (08:37→21:00)
[2020-07-16] MEDS: POTASSIUM CHLORIDE 10 MEQ TABCR PO SCH ×2 (08:37→21:00)
[2020-07-16] MEDS: METOPROLOL SUCC 50MG EXT REL TAB PO SCH (08:37)
[2020-07-16] MEDS: AMIODARONE 200 MG TAB PO SCH (08:37)
[2020-07-16] MEDS: DULoxetine HCL 20 MG CAP PO SCH (08:37)
[2020-07-16] MEDS: MAGNESIUM OXIDE 400 MG TAB PO SCH (08:37)
[2020-07-16] MEDS: DOCUSATE SODIUM 100 MG CAP PO SCH ×2 (08:37→21:32)
[2020-07-16] MEDS: CLOPIDOGREL BISULFATE 75 MG TAB PO SCH (08:38)
[2020-07-16] MEDS: ISOSORBIDE MONO EXTENDED REL 60 MG TABCR PO SCH (08:38)
[2020-07-16] MEDS: INSULIN GLARGINE SOLOSTAR 100 UNITS/ML 3 ML PEN SC SCH (08:38)
[2020-07-16] MEDS: INSULIN ASPART 100 UNITS/ML 3 ML PEN SC SCH ×4 (08:38→21:00)
--- NOTE | 2020-07-16 10:29 | Pharmacy Report ---
Pharmacy Glycemic Short Note 2 - Date of Service July 16, 2020 - Glycemic Short BSG Results (Last 24 hours): 07/15/20 07/15/20 07/15/20 11:20 16:02 20:26 Glucose POC Glucose 108 H 105 H 107 H 07/16/20 07/16/20 07/16/20 03:44 06:08 08:33 Glucose 95 POC Glucose 111 H 174 H OUTPATIENT ANTIDIABETIC REGIMEN: * Tresiba 36 units SQ AM * NovoLog with meals: 28 units with breakfast + 50 units with lunch + 56 units with dinner + 7 units at HS * Total daily dose = 177 units/day * A1c = 6.8% on 07/16/20 ASSESSMENT: 07/16: * Mr. Durham received a total of 35 units of insulin yesterday * 20 units basal + 15 units bolus * BSGs were well controlled: 23-175-481-107 mg/dL * Fasting BSG has increased to 174 mg/dL this AM * Will get double the dose of Lantus that he received yesterday per scale (likely basal deficient from not receiving enough Lantus yesterday) * No changes to Novolog as of now 07/14: * 74yo T2DM male with unknown degree of outpatient control - last A1c in January was in range but now outdated * Pt is maintained on high dose SQ basal bolus insulin regimen. Regimen is heavily weighted towards prandial insulin * BSG on admit is 148 mg/dl. * Will continue outpatient dosing of basal insulin as long as fasting BSG is in range; slightl decrease or increase for above or below range * Will set aggressive CF/CR per outpatient regimen. Likely, CHO intake will be less inpatient as compared to outpatient so dosing per CHO ratio is preferred to set bolus dosing (outpatient dosing) PLAN FOR INPATIENT GLYCEMIC CONTROL: * Basal insulin * Lantus 20-40 units SC AM * BSG < 110 mg/dL = 20 units; BSG 110-160 mg/dL = 30 units; BSG > 160 mg/dL = 40 units * Bolus insulin * NovoLog per scale ACHS or Q6hrs while NPO * Goal Range: Low 110 mg/dL - High 140 mg/dL * Correction Factor: 15 mg/dL/unit * Nutritional / Prandial insulin per carb ratio of 1 unit per 5 grams CHO consumed PLAN FOR DISCHARGE: * HbA1c = 6.8% from this admission. This is at goal for this patient. * Recommend continuing outpatient insulin regimen as long as patient is not experiencing any hypoglycemia at home.
[2020-07-16] MEDS ORDERED: CALCIUM CARBONATE 500 MG CHEWABLE TAB PO PRN (10:33)
[2020-07-16] MEDS: FAMOTIDINE 20 MG TAB PO SCH (11:59)
[2020-07-16] MEDS ORDERED: Nursing to Pharmacy Communication SCH (12:00)
--- NOTE | 2020-07-16 13:41 | Cardiology Progress Note ---
Date of Service July 16, 2020 Assessment & Plan (1) Hypoxia: (2) Acute on chronic HFrEF (heart failure with reduced ejection fraction): (3) Malfunction of implantable defibrillator ventricular (ICD) lead: (4) History of ventricular fibrillation: (5) Diabetes mellitus, type 2: (6) Hypertension: (7) OBED on CPAP: (8) CKD (chronic kidney disease) stage 4, GFR 15-29 ml/min: (9) PAF (paroxysmal atrial fibrillation): (10) H/O mitral valve replacement: (11) H/O aortic valve replacement: (12) CAD (coronary artery disease): (13) Pacemaker at end of battery life: Patient presents with 3 weeks of worsening dyspnea with exertion. Upon arrival did examine his volume overloaded with significant asymmetric bilateral airspace likely representing pulmonary edema with small effusions. To facilitate further diuresis we will change Lasix to 60 mg IV every 8 hours. Continue spironolactone 25 mg p.o. daily. Consideration may also be given to addition of metolazone for diuresis pending electrolytes. Continue to follow electrolytes and replete as necessary. We will have his device interrogated Admission and Anticipated Discharge Date Admission Date: July 14, 2020 Subjective Patient seen and examined, chart reviewed. States that he does not notice any improvement of his breathing since admission. Denies chest pain, palpitations, lightheadedness or dizziness. Telemetry reviewed: Normal sinus rhythm without arrhythmia. Review of Systems Review of Systems: All systems reviewed & are unremarkable except as noted in HPI & below Physical Exam Physical Exam: General: Awake, alert and oriented x 3. No acute distress. HEENT: Normocephalic, atraumatic. Pupils equal, round and reactive to light and accommodation. Extraocular muscles are intact. Anicteric sclera. Moist mucous membranes. Neck: No JVD. No bruit. Cardiovascular: Regular. Positive S-4. Normal S-1 and S-2. No S-3. 3/6 mid to late systolic ejection murmur, greatest at the right sternal border, second intercostal space with radiation to the bilateral carotids. No rubs. Pulmonary: Clear to auscultation bilaterally. No rales, rhonchi, or wheezing. Abdomen: Bowel sounds x 4, soft. No rebound, guarding or tenderness. No organomegaly. Extremities: No clubbing, cyanosis or edema. +2 pedal pulses bilaterally. Skin: Warm and dry. Results & Data ([facility]) Vital Signs (Past 12 Hours) Vital Signs Temp Pulse Resp BP BP Pulse Ox 07/16/20 11:09 36.9 C 73 18 119/77 92 07/16/20 08:08 36.7 C 75 22 138/73 92 07/16/20 05:23 78 18 87 L 07/16/20 03:38 36.4 C L 72 19 132/71 91
[2020-07-16] MEDS ORDERED: SODIUM CHLORIDE 0.65% NA SOLN 45 ML (OCEAN) PRN (14:16)
[2020-07-16] MEDS: FUROSEMIDE 60 MG in SYRINGE 0 ML IV SCH ×2 (14:18→20:58)
[2020-07-16] MEDS ORDERED: FUROSEMIDE 80 MG in SYRINGE 0 ML IV SCH (17:00)
--- NOTE | 2020-07-16 17:36 | Hospitalist Progress Note ---
Date of Service July 16, 2020 Assessment & Plan (1) Acute on chronic HFrEF (heart failure with reduced ejection fraction): (2) Hypoxia: (3) Supratherapeutic INR: (4) Diabetes mellitus, type 2: (5) CAD (coronary artery disease): (6) H/O mitral valve replacement: (7) PAF (paroxysmal atrial fibrillation): (8) CKD (chronic kidney disease) stage 4, GFR 15-29 ml/min: (9) OBED on CPAP: This is a 74-year-old male who has significant past medical history of ischemic cardiomyopathy, CAD with history of CABG x1 and angioplasty, biventricular AICD in place, chronic HFrEF with diastolic dysfunction, history of aortic valve and mitral valve replacements, PAF anticoagulated on warfarin, HTN, HLD, OBED on CPAP, insulin-dependent T2DM, CKD stage IIIb4, depression, GERD who presents to ED secondary to shortness of breath x1 week. Acute respiratory failure with hypoxia Acute on chronic systolic and diastolic CHF exacerbation CXR: Cardiomegaly and AICD with evidence of congestive failure. Asymmetric bilateral airspace likely represent pulmonary edema. Small effusions -ECHO: EF 25 to 30%, grade 2 diastolic dysfunction based on inferior and posterior segments are severely hypokinetic to akinetic. The apex is severely hypokinetic to akinetic. Otherwise moderate global hypokinesis. Appropriately functioning aortic and mitral valve bioprosthesis. Significant pulmonary hypertension is present. -Device interrogation completed Continue spironolactone 25 mg daily Monitor Daily weight, I/Os Continue fluid restriction Oxygen support PRN Monitor renal function/electrolytes Appreciate Cardiology Input IV Lasix increased to 60 mg every 8 hours Continue supplemental oxygen as needed Hypokalemia Replete electrolytes as needed Normal Mag levels Biventricular AICD/pacemaker Device interrogation done Supratherapeutic INR Secondary to Coumadin/Hepatic congestion No acute bleeding issues INR 6.6>6.7>2.4 Hold Coumadin today Plan to resume Coumadin tomorrow if INR remains in therapeutic range Chronic anemia secondary to renal disease Baseline hemoglobin ~10 Monitor CBC CKD stage IV Baseline creatinine 2.2-2.4 Creatinine 1.76 Monitor renal function while on diuretics Avoid nephrotoxic agents as able Valvular heart disease S/P aortic, mitral valve replacement ventricular fibrillation S/P AICD Continue home medications Paroxysmal atrial fibrillation Coumadin on hold secondary to supratherapeutic INR Continue amiodarone, metoprolol CAD S/P CABG Continue Plavix, atorvastatin, metoprolol, Imdur IDDM 2 Last A1c 05/22/2020 6.9 Lantus/NovoLog per protocol Consult glycemic pharmacist in setting of high doses of NovoLog OBED CPAP @ HS GERD Continue PPI Morbid obesity BMI 40 DVT Px: Therapeutic INR CODE STATUS Full code Disposition PT OT prior to discharge Admission and Anticipated Discharge Date Admission Date: July 14, 2020 Subjective Patient is seen and examined at bedside Dyspnea about the same as yesterday Less cough today States having some heartburn earlier today No other complaints Denies chest pain, dizziness, abdominal pain Review of Systems Review of Systems: All systems reviewed & are unremarkable except as noted in HPI & below Physical Exam Physical Exam: Physical Exam: Vitals signs as noted above General Appearance:Obese, no apparent distress Head: normocephalic, Atraumatic Eyes: normal inspection, EOMI Neck: supple, Trachea midline Respiratory/Chest: Normal breath sounds, B/L scattered crackles Cardiovascular: S1, S2, + murmur Abdomen/GI:Soft, Non tender, Bowel sounds present Extremities/Musculoskeletal:normal inspection, Trace pedal edema Neurologic/Psych:AAOX3, grossly no focal neurological deficits Skin: normal color, warm Results & Data Results & Data ([facility]) Vital Signs (Past 12 Hours) Vital Signs Temp Pulse Resp BP BP Pulse Ox 07/16/20 15:13 36.8 C 75 19 137/75 94 07/16/20 11:09 36.9 C 73 18 119/77 92 07/16/20 08:08 36.7 C 75 22 138/73 92 Laboratory Results Short CBC 07/16/20 Range/Units 06:08 WBC 11.96 H (4.8-10.8) K/uL Hgb 9.4 L (14.0-18.0) g/dL Hct 28.8 L (42-52) % Plt Count 323 (130-400) K/uL BMP 07/16/20 06:08 Sodium 143 Potassium 3.7 Chloride 107 Carbon Dioxide 28 BUN 28 H Creatinine 1.76 H Glucose 95 Calcium 8.5
[2020-07-16] MEDS ORDERED: ALBUTEROL 0.083% NEBU SOLN 3 ML VIAL NEB PRN (18:21)
--- NOTE | 2020-07-16 18:51 | XRay Report ---
XR chest 1V portable HISTORY: 74 years-old Male SOB acute shortness of breath COMPARISON: Chest radiograph of same day at 5:06 AM TECHNIQUE: Direct portable AP view the chest FINDINGS: Cardiac silhouette is enlarged. Prior median sternotomy with cardiac valvular prosthesis and pacer/AI CD. Calcified plaque of the thoracic aorta. No pneumothorax. Interstitial coarsening with bilateral a irspace opacities, left greater than right redemonstrated not really changed from comparison. Small b ilateral pleural effusions. Degenerative changes of the shoulders and spine. IMPRESSION: 1. Cardiomegaly with pulmonary edema and small pleural effusions. 2. Left greater than right bilateral airspace opacities are stable from comparison and may reflect as ymmetric alveolar pulmonary edema versus superimposed pneumonia. ACT 112: Negative or not required by law. The above report was generated using voice recognition software. It may contain grammatical, syntax o r spelling errors. Electronically signed by: Liasndro Dela Cruz M.D. 07/16/2020 6:50 PM
[2020-07-16] MEDS ORDERED: MICONAZOLE NITRATE POWDER 43 GM EXT PRN (18:54)
[2020-07-16 18:55] LABS: HCO3 ABG 26 mmol/L (19-24); Oxygen Saturation ABG 95.5 % (90-95); PCO2 ABG 30 mmHg (35-46); PO2 ABG 71 mmHg (80-95)
[2020-07-16 19:03] LABS: Allen Test Pos (Pos); pH ABG 7.55 (7.35-7.45)
[2020-07-16] MEDS: ATORVASTATIN 40 MG TAB PO SCH (21:00)
[2020-07-17 07:01] LABS: Basophils # (auto) 0.02 K/uL (0-0.2); Basophils % (auto) 0.1 %; Eosinophils # (auto) 0.02 K/uL (0-0.5); Eosinophils % (auto) 0.1 %; Hematocrit (blood only) 28.9 % (42-52); Hemoglobin 9.4 g/dL (14.0-18.0); Immature Granulocytes # (auto) 0.04 K/uL (0.00-0.02); Immature Granulocytes % (auto) 0.3 %; Lymphocytes # (auto) 1.42 K/uL (1.2-3.4); Lymphocytes % (auto) 10.3 %; Mean Corpuscular Hemoglobin 30.1 pg (25-34); Mean Corpuscular Hgb Conc 32.5 g/dL (32-36); Mean Corpuscular Volume 92.6 fL (80-100); Mean Platelet Volume 11.5 fL (7.4-10.4); Monocytes # (auto) 1.26 K/uL (0.11-0.59); Monocytes % (auto) 9.2 %; Platelet Count 342 K/uL (130-400); RDW Coefficient of Variation 14.7 % (11.5-14.5); RDW Standard Deviation 50.1 fL (36.4-46.3); Red Blood Count 3.12 M/uL (4.7-6.1); White Blood Count 13.76 K/uL (4.8-10.8)
[2020-07-17 07:03] LABS: Base Excess ABG 2.6 mEq/L (-9-1.8); HCO3 ABG 26 mmol/L (19-24); Oxygen Saturation ABG 96.1 % (90-95); PCO2 ABG 33 mmHg (35-46); PO2 ABG 78 mmHg (80-95)
[2020-07-17 07:08] LABS: Allen Test Pos (Pos)
[2020-07-17 07:10] LABS: INR 2.1 (0.9-1.1)
[2020-07-17 07:30] LABS: BUN Creatinine Ratio 15.1 (10-20); Calcium 9.1 mg/dl (8.5-10.1); Creatinine Clr Calc Pharmacy 34.4 ml/min; Est GFR (African American) 30.2; Est GFR (Non-African American) 26.1; Magnesium 2.1 mg/dl (1.8-2.4); Potassium 4.5 mmol/L (3.5-5.1)
[2020-07-17] MEDS: FUROSEMIDE 60 MG in SYRINGE 0 ML IV SCH ×3 (08:45→22:29)
[2020-07-17] MEDS: METOPROLOL SUCC 50MG EXT REL TAB PO SCH (08:53)
[2020-07-17] MEDS: DULoxetine HCL 20 MG CAP PO SCH (08:53)
[2020-07-17] MEDS: POTASSIUM CHLORIDE 10 MEQ TABCR PO SCH ×2 (08:53→21:38)
[2020-07-17] MEDS: ASCORBIC ACID 500 MG TAB PO SCH ×2 (08:53→21:37)
[2020-07-17] MEDS: CLOPIDOGREL BISULFATE 75 MG TAB PO SCH (08:53)
[2020-07-17] MEDS: ISOSORBIDE MONO EXTENDED REL 60 MG TABCR PO SCH (08:54)
[2020-07-17] MEDS: SPIRONOLACTONE 25 MG TAB PO SCH (08:54)
[2020-07-17] MEDS: CHOLECALCIFEROL 1,000 UNITS 25 MCG TAB PO SCH (08:54)
[2020-07-17] MEDS: FAMOTIDINE 20 MG TAB PO SCH (08:54)
[2020-07-17] MEDS: MAGNESIUM OXIDE 400 MG TAB PO SCH (08:54)
[2020-07-17] MEDS: AMIODARONE 200 MG TAB PO SCH (08:54)
[2020-07-17] MEDS: DOCUSATE SODIUM 100 MG CAP PO SCH ×2 (09:04→21:37)
[2020-07-17] MEDS: INSULIN GLARGINE SOLOSTAR 100 UNITS/ML 3 ML PEN SC SCH (09:10)
[2020-07-17] MEDS: INSULIN ASPART 100 UNITS/ML 3 ML PEN SC SCH ×4 (09:12→21:27)
--- NOTE | 2020-07-17 09:57 | XRay Report ---
XR chest 1V portable CLINICAL HISTORY: Congestive heart failure COMPARISON STUDY: 07/16/2020 FINDINGS: The heart remains enlarged. There are bilateral pleural effusions. There are bilateral pulm onary airspace opacities consistent with pulmonary edema. There are postsurgical changes of midline s ternotomy and valvular replacement. There is a left subclavian pacer/defibrillator present.[ IMPRESSION: No significant change from the preceding study. Continued radiographic evidence of pulmon carin edema with bilateral pleural effusions ACT 112: Negative or not required by law. Electronically signed by: Adrien Cruz M.D. 07/17/2020 9:55 AM
[2020-07-17] MEDS ORDERED: DOXYCYCLINE HYCLATE 100 MG CAP PO SCH (10:00)
[2020-07-17] MEDS ORDERED: FUROSEMIDE 80 MG in SYRINGE 0 ML IV ONE (10:09)
[2020-07-17] MEDS ORDERED: FUROSEMIDE 40 MG/4 ML VIAL IV ONE ×2 (10:15→14:05)
--- NOTE | 2020-07-17 10:20 | Cardiology Progress Note ---
Date of Service July 17, 2020 Assessment & Plan (1) Hypoxia: (2) Acute on chronic HFrEF (heart failure with reduced ejection fraction): (3) Malfunction of implantable defibrillator ventricular (ICD) lead: (4) History of ventricular fibrillation: (5) Diabetes mellitus, type 2: (6) Hypertension: (7) OBED on CPAP: (8) CKD (chronic kidney disease) stage 4, GFR 15-29 ml/min: (9) PAF (paroxysmal atrial fibrillation): (10) H/O mitral valve replacement: (11) H/O aortic valve replacement: (12) CAD (coronary artery disease): (13) Pacemaker at end of battery life: Patient presents with 3 weeks of worsening dyspnea with exertion. Upon arrival did examine his volume overloaded with significant asymmetric bilateral airspace likely representing pulmonary edema with small effusions. Unfortunately, his respiratory status has declined despite aggressive diuresis. He does not examine his volume overloaded at this time. His white count is now elevated with a left shift and pro calcitonin level is positive as well suggestive of infectious disease. Appreciate recommendations from our critical care team and will obviously defer oxygenation recommendations. I do not believe he is significantly volume overloaded at this point and his renal function is starting to bump, consideration can be given to decreasing Lasix to either 60 mg twice daily or daily depending on his course throughout the rest of the day. Device interrogation shows an appropriately performing BiV ICD with 100% BiV pacing which is obviously our goal of therapy. Continue current doses of aspirin, amiodarone, atorvastatin, Plavix, metoprolol Imdur, spironolactone and warfarin. There is a significant suspicion that he will lapse into atrial fibrillation during this event but we can deal with that medically once his pulmonary status improves. Admission and Anticipated Discharge Date Admission Date: July 14, 2020 Subjective Patient seen and examined, chart reviewed and case discussed with nursing, hospitalist service and critical care. Patient became significantly hypoxic overnight and required placement of BiPAP with significant amount of supplemental O2. Currently states he is feeling more comfortable on BiPAP but with moderate conversational dyspnea. Denies chest pain, palpitations, lightheadedness, or dizziness. States that he has been urinating overnight but not as much as he expected. Telemetry reviewed: AV sequential pacing in the 80s overnight. Remote device check reveals an appropriately functioning biventricular ICD, RV lead impedance is mildly impaired. Adequate battery life. 100% BiV pacing. No arrhythmias. Review of Systems Review of Systems: All systems reviewed & are unremarkable except as noted in HPI & below Physical Exam Physical Exam: General: Awake, alert and oriented x 3. Moderate respiratory distress on BiPAP. HEENT: Normocephalic, atraumatic. Pupils equal, round and reactive to light and accommodation. Extraocular muscles are intact. Anicteric sclera. Moist mucous membranes. Neck: No JVD. No bruit. Cardiovascular: Regular. Positive S-4. Normal S-1 and S-2. No S-3. 3/6 mid to late systolic ejection murmur, greatest at the right sternal border, second i ntercostal space with radiation to the bilateral carotids. No rubs. Pulmonary: Clear to auscultation bilaterally. No rales, rhonchi, or wheezing. Abdomen: Bowel sounds x 4, soft. No rebound, guarding or tenderness. No organomegaly. Extremities: No clubbing, cyanosis or edema. +2 pedal pulses bilaterally. Skin: Warm and dry. Results & Data ([facility]) Vital Signs (Past 12 Hours) Vital Signs Temp Pulse Pulse Resp BP Pulse Ox 07/17/20 09:28 77 77 36 H 94 07/17/20 07:06 36.8 C 81 20 112/66 90 07/17/20 04:35 37.3 C 86 24 117/70 90 07/17/20 02:47 88 35 H 94 07/16/20 23:47 37.3 C 95 H 18 137/82 90 07/16/20 22:36 95 H 36 H 88 L
[2020-07-17] MEDS ORDERED: FUROSEMIDE 40 MG in SYRINGE 0 ML IV ONE (10:30)
--- NOTE | 2020-07-17 12:43 | Ultrasound Report ---
RENAL ULTRASOUND CLINICAL HISTORY: Acute kidney injury. COMPARISON STUDY: None. TECHNIQUE: Sonography of the kidneys and the urinary bladder was performed. FINDINGS: There is no hydronephrosis. Left kidney is partially obscured. Right kidney measures 9.9 x 5.5 x 4.6 cm and the left kidney measures 9.6 x 5 x 5 cm. Moderate bilateral renal cortical thinning is noted. Bladder is collapsed, containing a Matthews balloon. There are gallstones and sludge within th e gallbladder. There is no gallbladder wall thickening. No pericholecystic fluid is present. IMPRESSION: 1. No hydronephrosis. 2. Moderate bilateral renal cortical thinning. 3. Cholelithiasis and sludge within the gallbladder. No gallbladder wall thickening. No pericholecyst ic fluid. ACT 112: Negative or not required by law. Electronically signed by: Ayo Sage M.D. 07/17/2020 12:42 PM
[2020-07-17 12:58] LABS: Appearance Urine Clear (Clear); Bacteria Urine Automated Negative (Negative); Bilirubin Urine Negative (Negative); Blood Urine 2+ (Negative); Color Urine Yellow; Glucose Urine UA Negative (Negative); Ketones Urine Negative (Negative); Leukocyte Esterase Urine 1+ (Negative); Nitrite Urine Negative (Negative); Protein Urine Negative (Negative); Specific Gravity Urine 1.011 (1.000-1.030); Urobilinogen Urine Negative (Negative)
[2020-07-17] MEDS: cefTRIAXone SODIUM 2,000 MG in DEXTROSE 5% 50 ML IV SCH (12:59)
[2020-07-17 13:10] LABS: Albumin Level 2.7 gm/dl (3.4-5.0); BUN Creatinine Ratio 16.9 (10-20); Calcium 9.1 mg/dl (8.5-10.1); Creatinine Clr Calc Pharmacy 33.5 ml/min; Est GFR (African American) 29.3; Est GFR (Non-African American) 25.3; Potassium 4.4 mmol/L (3.5-5.1)
[2020-07-17 13:12] LABS: Albumin Globulin Ratio 0.7 (0.9-2); Bilirubin,Total 1.5 mg/dl (0.2-1); Globulin 3.8 gm/dl (2.5-4.0); Total Protein 6.5 gm/dl (6.4-8.2)
--- NOTE | 2020-07-17 13:28 | Critical Care Consultation ---
Date of Consultation July 17, 2020 Assessment & Plan (1) Acute respiratory failure with hypoxia: Reason critically ill: Acute respiratory failure with hypoxia in the setting of congestive heart failure Neuro: - Patient currently A/O x3 - Delirium precautions Cardiac/Vascular: - Continue diuresis with Lasix 60mg IV q8h - Will hold spironolactone Respiratory: - Advanced patient to CPAP - Confirmed with patient that he would like to proceed with intubation if necessary - Respiratory status tenuous consider intubation GI/Nutrition: - Continue famotidine - NPO at this time as he is on CPAP - LFTs elevated, possibly related to hepatic congestion hepatopathy; will trend LFTs Renal/Lytes: - JUAN likely mutifactorial secondary to lasix use and cardiorenal syndrome - Avoid nephrotoxic agents - Renal US ordered - Continue to monitor and replete electrolytes as needed Genitourinary: - Cordova catheter in place - UA ordered as noted below - Monitor strict Is/Os Endo: - Hx of DM2 - Continue ICU glycemic protocol per pharmacy Heme: - Hgb and Hct 9.4 and 28.9 today - No current concerns of blood loss - Anticoagulated on warfarin at home; on admission, patient with supratherapeutic INR at 6.6; INR is 2.1 today - Continue to monitor ID: - Septic work up started - Labs pending including blood cultures, sputum cultures, UA, legionella antigen, mycoplasma, and MRSA nasal swab - Procal is elevated at 0.63 today; plan to repeat procal level in 48 hours - Continue doxycycline; started Rocephin as well Lines/IV Access: - 2 PIVs established DVT Prophylaxis: SCDs; Anticoagulated on Warfarin (2) CHF (congestive heart failure): (3) Diabetes mellitus, type 2: (4) Hypertension: (5) Hyperlipidemia: (6) CKD (chronic kidney disease) stage 4, GFR 15-29 ml/min: Supervising Physician Co-Signing Physician Notes Dr. Jay Was the resident-physician during care of patient. I separately evaluated patient for link portions of the history and the exam. I was present during the critical portion of medical decision making, and I discussed the case with the resident. I generally agree with the findings and plan except for any additions/exceptions noted. 74-year-old male with ischemic cardiomyopathy presenting with acute hypoxemic respiratory failure increased work of breathing. Patient was placed was intubated and placed on mechanical ventilator due to increased work of breathing and increasing lethargy. Continue lung protective ventilation strategy. Will obtain ABG 1 hour. Continue with IV diuresis with Lasix. Hold metoprolol, spironolactone and Imdur at this time. Sedation with propofol and fentanyl. Patient's niece was updated. Patient consented to the intubation verbally prior to intubation and understood the risks and benefits. He has severe cardiomyopathy. He may need inotropic support if he becomes hypotensive. He has ongoing JUAN likely due to cardiorenal disease. He also has elevated LFTs likely related to congestive hepatopathy. We will trend the LFTs. We will obtain a renal ultrasound. Prognosis is guarded at this time. I discussed the case with the patient's customer supply chain analyst, Dr. Guzmán. I have personally spent 63 minutes of critical care time in the direct management of this patient. This is a life/limb threatening event. This includes time spent evaluating patient, direct bedside care, chart review, placing orders, interpretation of diagnostic studies, discussion with consultants, patient, and/or family members regarding treatment decisions, as well as other required patient management activities. This time is exclusive of all separately billable procedures, and teaching time and separate from and in addition to any other critical care service time. History of Present Illness Reason for Consultation: acute hypoxic respiratory failure Attending Physician: Delta Benedict MD History of Present Illness Mynor Hooks is a 74 yo M with a significant PMHx including ischemic cardiomyopathy, CAD with history of CABG x1 and angioplasty, biventricular AICD in place, chronic HFrEF with diastolic dysfunction, history of aortic valve and mitral valve replacements, paroxysmal atrial fibrillation anticoagulated on warfarin, HTN, HLD, OBED on CPAP, insulin-dependent T2DM, CKD, depression, and GERD who was admitted for acute on chronic systolic and diastolic CHF exacerbation. Patient states that he has had progressively worsening SOB since Thursday (3 days ago). He denies any specific precipitating factors prior to this illness. Patient states that prior to Thursday, he overall felt well. He denies a significant pulmonary history but states that he does "use a puffer" at home as needed for SOB. Since admission, patient has had continued acute hypoxic respiratory failure in the setting of acute on chronic diastolic CHF. Patient do es report increased work of breathing, SOB, and some abdominal pain which he attributes to the increased work of breathing/accessory muscle use. He denies fever, chills, chest pain, nausea, vomiting, leg pain, or headache. Per chart review, it is noted that patient had been receiving lasix 80mg BID but this was increased to lasix 60mg TID yesterday. His oxygen requirement has increased from 4L via NC to currently with BiPap at 14 L/min, FiO2 8%. Patient continues to be tachypneic and with increased work of breathing. Patient denies a hx of tobacco use. Allergies Allergy/AdvReac Type Severity Reaction Status Date / Time No Known Allergies Allergy Unverified 02/12/20 18:24 Home Medications Medication Instructions Recorded Confirmed Type Tresiba FlexTouch U-200 36 unit SUBCUT QAM 12/07/19 07/14/20 History albuterol sulfate 2 puff INHALATION QID PRN 12/07/19 07/14/20 History amiodarone 200 mg PO DAILY 12/07/19 07/14/20 History ascorbic acid (vitamin C) [Vitamin 500 mg PO BID 12/07/19 07/14/20 History C] clopidogrel 75 mg PO QAM 12/07/19 07/14/20 History docusate sodium 100 mg PO BID 12/07/19 07/14/20 History furosemide 80 mg PO QAM 12/07/19 07/14/20 History insulin aspart U-100 [Novolog 0 unit SUBCUT AC 12/07/19 07/14/20 History Flexpen U-100 Insulin] nitroglycerin 0.4 mg SUBLINGUAL DIRECTED PRN 12/07/19 07/14/20 History omeprazole 20 mg PO QAM PRN 12/07/19 07/14/20 History atorvastatin 80 mg PO QPM 12/30/19 07/14/20 History cyanocobalamin (vitamin B-12) 1,000 mcg IM MO 12/30/19 07/14/20 History magnesium oxide 400 mg PO DAILY 12/30/19 07/14/20 History metoprolol succinate 100 mg PO DAILY 12/30/19 07/14/20 History isosorbide mononitrate 60 mg PO QAM 30 Days #60 tab 01/06/20 07/14/20 Rx duloxetine 20 mg PO QAM 02/12/20 07/14/20 History amoxicillin 2,000 mg PO UD 07/14/20 07/14/20 History cholecalciferol (vitamin D3) 125 mcg PO Q2D 07/14/20 07/14/20 History [Vitamin D3] furosemide 40 mg PO DAILY@1300 07/14/20 07/14/20 History warfarin 1.25 mg PO SUMOTUTHFRSA@1600 07/14/20 07/14/20 History warfarin 2.5 mg PO We@1600 07/14/20 07/14/20 History Patient History Medical History (Updated 07/17/20 @ 13:54 by Debi Jay DO) Acute respiratory failure with hypoxia CAD (coronary artery disease) 07/2018: coronary artery bypass grafting x1 with reverse saphenous vein from aorta to right coronary artery via endoscopic saphenous vein harvesting; PCI to mid LAD with RIZWAN Chronic HFrEF (heart failure with reduced ejection fraction) Chronic kidney disease CKD (chronic kidney disease) stage 4, GFR 15-29 ml/min Diabetes mellitus, type 2 GERD (gastroesophageal reflux disease) History of ventricular fibrillation Hyperlipidemia Hypertension OBED on CPAP PAF (paroxysmal atrial fibrillation) Pernicious anemia Surgical History H/O aortic valve replacement Status post bioprosthetic AVR in 2004 Aortic valve prosthesis stenosis and mitral regurgitation requiring redo sternotomy jul 21 2013 with redo AVR and subsequent MVR. H/O mitral valve replacement History of appendectomy History of cardiac cath History of colonoscopy History of coronary artery bypass graft x 1 coronary artery bypass grafting x1 with reverse saphenous vein from aorta to right coronary artery via endoscopic saphenous vein harvesting. History of heart artery stent History of heart valve replacement ICD (implantable cardioverter-defibrillator) in place Family History Father Heart disease VT @ age 64 Mother , age 34, stomach ca Cancer Social History Smoking Status: Never smoker Second Hand Exposure: No; Do You Dip or Chew Tobacco: No; Tobacco Cessation Education Requested by Patient: No Hx Alcohol Use: No Hx Substance Use: No Preferred Language: Nepali Communication Ability: Effective Roustabout Supervisor Required: No Beliefs That Will Affect Care: None marital status: Single Current Living Situation: Alone current occupation: retired Other Information That Helps Us Care for You: No Feels Safe at Home: Yes Safety Concerns: Feels Safe At This Time Assistive Devices: Oxygen - Continuous Review of Systems Constitutional: + fatigue; no fever and no chills Eyes: no problem reported Ear, Nose, Mouth, Throat: no nasal congestion and no sore throat Respiratory: + dyspnea Cardiovascular: + dyspnea and + orthopnea; no chest pain Gastrointestinal: + abdominal pain; no nausea and no vomiting Genitourinary: + problem reported (+ cordova) Musculoskeletal: Denies leg pain Integumentary: no rash Neurologic: no headache(s) Physical Exam Physical Exam: GENERAL: Mild distress secondary to increased respiratory effort. Obese. Appears stated age. EYES: PERRLA. EOMI. Anicteric sclerae. HENT: BiPap mask in place. RESPIRATORY: Tachypneic. Increased respiratory effort. Chest wall motion symmetric. Lungs with scattered crackles bilaterally, most prominent in lower lobes. + accessory muscle use. CARDIOVASCULAR: Regular rate and rhythm. 3/6 RUBY. ABDOMEN: Obese abdomen that is soft and non-tender. No palpable masses. Normal bowel sounds. EXTREMITIES: Non-tender. 1+ b/l LE edema. SKIN: Warm, dry. No rashes noted. NEUROLOGIC: Appears fatigued but A/O x3. PSYCHIATRIC: Cooperative. Appropriate mood and affect. Results & Data Results & Data ([facility]) Vital Signs (Past 12 Hours) Vital Signs Temp Pulse Pulse Resp BP BP Pulse Ox 07/17/20 12:34 36.9 C 07/17/20 12:30 78 35 H 94 07/17/20 12:05 79 31 H 103/76 94 07/17/20 12:00 79 30 H 91 07/17/20 11:48 80 38 H 95 07/17/20 11:36 79 35 H 106/69 92 07/17/20 11:35 82 39 H 94 07/17/20 10:57 79 40 H 99 07/17/20 10:22 118/46 L 07/17/20 09:28 77 77 36 H 94 07/17/20 07:06 36.8 C 81 20 112/66 90 07/17/20 04:35 37.3 C 86 24 117/70 90 07/17/20 02:47 88 35 H 94 Laboratory Results 07/17/20 07/17/20 07/17/20 Range/Units 12:35 12:35 12:33 WBC (4.8-10.8) K/uL RBC (4.7-6.1) M/uL Hgb (14.0-18.0) g/dL Hct (42-52) % MCV (80-100) fL MCH (25-34) pg MCHC (32-36) g/dL RDW Std Deviation (36.4-46.3) fL RDW Coeff of Rosio (11.5-14.5) % Plt Count (130-400) K/uL MPV (7.4-10.4) fL Immature Gran % (Auto) % Neut % (Auto) % Lymph % (Auto) % Sumner % (Auto) % Eos % (Auto) % Baso % (Auto) % Neut # (Auto) (1.4-6.5) K/uL Lymph # (Auto) (1.2-3.4) K/uL Sumner # (Auto) (0.11-0.59) K/uL Eos # (Auto) (0-0.5) K/uL Baso # (Auto) (0-0.2) K/uL Immature Gran # (Auto) (0.00-0.02) K/uL PT (9.0-12.0) Seconds INR (0.9-1.1) ABG pH (7.35-7.45) ABG pCO2 (35-46) mmHg ABG pO2 (80-95) mmHg ABG HCO3 (19-24) mmol/L ABG O2 Saturation (90-95) % ABG Base Excess (-9-1.8) mEq/L Pedro Test (Pos) Barometric Pressure mm/Hg Oxygen Given Sodium 138 (136-145) mmol/L Potassium 4.4 (3.5-5.1) mmol/L Chloride 102 (98-107) mmol/L Carbon Dioxide 24 (21-32) mmol/L Anion Gap 12.0 H (3-11) BUN 41 H (7-18) mg/dl Creatinine 2.44 H (0.6-1.4) mg/dl Est Cr Clr Drug Dosing 33.5 ml/min Est GFR ( Amer) 29.3 Est GFR (Non-Af Amer) 25.3 BUN/Creatinine Ratio 16.9 (10-20) Glucose 89 (70-99) mg/dl POC Glucose (70-99) mg/dl Lactate (0.4-2.0) mmol/L Calcium 9.1 (8.5-10.1) mg/dl Magnesium (1.8-2.4) mg/dl Total Bilirubin 1.5 H (0.2-1) mg/dl AST 344 H (15-37) U/L ALT 146 H (12-78) U/L Alkaline Phosphatase 136 H (45-117) U/L Total Protein 6.5 (6.4-8.2) gm/dl Albumin 2.7 L (3.4-5.0) gm/dl Globulin 3.8 (2.5-4.0) gm/dl Albumin/Globulin Ratio 0.7 L (0.9-2) Procalcitonin (0-0.5) ng/ml Urine Color Yellow Urine Appearance Clear (Clear) Urine pH 5.0 (4.5-7.5) Ur Specific [place] 1.011 (1.000-1.030) Urine Protein Negative (Negative) Urine Glucose (UA) Negative (Negative) Urine Ketones Negative (Negative) Urine Blood 2+ H (Negative) Urine Nitrite Negative (Negative) Urine Bilirubin Negative (Negative) Urine Urobilinogen Negative (Negative) Ur Leukocyte Esterase 1+ H (Negative) Urine WBC (Auto) 5-10 H (0-5) /hpf Urine RBC (Auto) 5-10 H (0-4) /hpf U Hyaline Cast (Auto) 5-10 H (0-5) /lpf U Epithel Cells (Auto) 5-10 H (0-5) /lpf Urine Bacteria (Auto) Negative (Negative) Urine Legionella Ag Pending Mycoplasma pneumon IgG Mycoplasma pneumon IgM 07/17/20 07/17/20 07/17/20 Range/Units 12:33 12:21 12:04 WBC (4.8-10.8) K/uL RBC (4.7-6.1) M/uL Hgb (14.0-18.0) g/dL Hct (42-52) % MCV (80-100) fL MCH (25-34) pg MCHC (32-36) g/dL RDW Std Deviation (36.4-46.3) fL RDW Coeff of Rosio (11.5-14.5) % Plt Count (130-400) K/uL MPV (7.4-10.4) fL Immature Gran % (Auto) % Neut % (Auto) % Lymph % (Auto) % Sumner % (Auto) % Eos % (Auto) % Baso % (Auto) % Neut # (Auto) (1.4-6.5) K/uL Lymph # (Auto) (1.2-3.4) K/uL Sumner # (Auto) (0.11-0.59) K/uL Eos # (Auto) (0-0.5) K/uL Baso # (Auto) (0-0.2) K/uL Immature Gran # (Auto) (0.00-0.02) K/uL PT (9.0-12.0) Seconds INR (0.9-1.1) ABG pH (7.35-7.45) ABG pCO2 (35-46) mmHg ABG pO2 (80-95) mmHg ABG HCO3 (19-24) mmol/L ABG O2 Saturation (90-95) % ABG Base Excess (-9-1.8) mEq/L Pedro Test (Pos) Barometric Pressure mm/Hg Oxygen Given Sodium (136-145) mmol/L Potassium (3.5-5.1) mmol/L Chloride (98-107) mmol/L Carbon Dioxide (21-32) mmol/L Anion Gap (3-11) BUN (7-18) mg/dl Creatinine (0.6-1.4) mg/dl Est Cr Clr Drug Dosing ml/min Est GFR ( Amer) Est GFR (Non-Af Amer) BUN/Creatinine Ratio (10-20) Glucose (70-99) mg/dl POC Glucose 127 H (70-99) mg/dl Lactate 1.7 (0.4-2.0) mmol/L Calcium (8.5-10.1) mg/dl Magnesium (1.8-2.4) mg/dl Total Bilirubin (0.2-1) mg/dl AST (15-37) U/L ALT (12-78) U/L Alkaline Phosphatase (45-117) U/L Total Protein (6.4-8.2) gm/dl Albumin (3.4-5.0) gm/dl Globulin (2.5-4.0) gm/dl Albumin/Globulin Ratio (0.9-2) Procalcitonin (0-0.5) ng/ml Urine Color Urine Appearance (Clear) Urine pH (4.5-7.5) Ur Specific [place] (1.000-1.030) Urine Protein (Negative) Urine Glucose (UA) (Negative) Urine Ketones (Negative) Urine Blood (Negative) Urine Nitrite (Negative) Urine Bilirubin (Negative) Urine Urobilinogen (Negative) Ur Leukocyte Esterase (Negative) Urine WBC (Auto) (0-5) /hpf Urine RBC (Auto) (0-4) /hpf U Hyaline Cast (Auto) (0-5) /lpf U Epithel Cells (Auto) (0-5) /lpf Urine Bacteria (Auto) (Negative) Urine Legionella Ag Mycoplasma pneumon IgG Pending Mycoplasma pneumon IgM Pending 07/17/20 07/17/20 07/17/20 Range/Units 07:38 06:51 06:51 WBC (4.8-10.8) K/uL RBC (4.7-6.1) M/uL Hgb (14.0-18.0) g/dL Hct (42-52) % MCV (80-100) fL MCH (25-34) pg MCHC (32-36) g/dL RDW Std Deviation (36.4-46.3) fL RDW Coeff of Rosio (11.5-14.5) % Plt Count (130-400) K/uL MPV (7.4-10.4) fL Immature Gran % (Auto) % Neut % (Auto) % Lymph % (Auto) % Sumner % (Auto) % Eos % (Auto) % Baso % (Auto) % Neut # (Auto) (1.4-6.5) K/uL Lymph # (Auto) (1.2-3.4) K/uL Sumner # (Auto) (0.11-0.59) K/uL Eos # (Auto) (0-0.5) K/uL Baso # (Auto) (0-0.2) K/uL Immature Gran # (Auto) (0.00-0.02) K/uL PT (9.0-12.0) Seconds INR (0.9-1.1) ABG pH (7.35-7.45) ABG pCO2 (35-46) mmHg ABG pO2 (80-95) mmHg ABG HCO3 (19-24) mmol/L ABG O2 Saturation (90-95) % ABG Base Excess (-9-1.8) mEq/L Pedro Test (Pos) Barometric Pressure mm/Hg Oxygen Given Sodium 139 (136-145) mmol/L Potassium 4.5 D (3.5-5.1) mmol/L Chloride 105 (98-107) mmol/L Carbon Dioxide 26 (21-32) mmol/L Anion Gap 9.0 (3-11) BUN 36 H (7-18) mg/dl Creatinine 2.38 H D (0.6-1.4) mg/dl Est Cr Clr Drug Dosing 34.4 ml/min Est GFR ( Amer) 30.2 Est GFR (Non-Af Amer) 26.1 BUN/Creatinine Ratio 15.1 (10-20) Glucose 77 (70-99) mg/dl POC Glucose 112 H (70-99) mg/dl Lactate (0.4-2.0) mmol/L Calcium 9.1 (8.5-10.1) mg/dl Magnesium 2.1 (1.8-2.4) mg/dl Total Bilirubin (0.2-1) mg/dl AST (15-37) U/L ALT (12-78) U/L Alkaline Phosphatase (45-117) U/L Total Protein (6.4-8.2) gm/dl Albumin (3.4-5.0) gm/dl Globulin (2.5-4.0) gm/dl Albumin/Globulin Ratio (0.9-2) Procalcitonin 0.63 H (0-0.5) ng/ml Urine Color Urine Appearance (Clear) Urine pH (4.5-7.5) Ur Specific [place] (1.000-1.030) Urine Protein (Negative) Urine Glucose (UA) (Negative) Urine Ketones (Negative) Urine Blood (Negative) Urine Nitrite (Negative) Urine Bilirubin (Negative) Urine Urobilinogen (Negative) Ur Leukocyte Esterase (Negative) Urine WBC (Auto) (0-5) /hpf Urine RBC (Auto) (0-4) /hpf U Hyaline Cast (Auto) (0-5) /lpf U Epithel Cells (Auto) (0-5) /lpf Urine Bacteria (Auto) (Negative) Urine Legionella Ag Mycoplasma pneumon IgG Mycoplasma pneumon IgM 07/17/20 07/17/20 07/17/20 Range/Units 06:51 06:51 06:51 WBC 13.76 H (4.8-10.8) K/uL RBC 3.12 L (4.7-6.1) M/uL Hgb 9.4 L (14.0-18.0) g/dL Hct 28.9 L (42-52) % MCV 92.6 (80-100) fL MCH 30.1 (25-34) pg MCHC 32.5 (32-36) g/dL RDW Std Deviation 50.1 H (36.4-46.3) fL RDW Coeff of Rosio 14.7 H (11.5-14.5) % Plt Count 342 (130-400) K/uL MPV 11.5 H (7.4-10.4) fL Immature Gran % (Auto) 0.3 % Neut % (Auto) 80.0 % Lymph % (Auto) 10.3 % Sumner % (Auto) 9.2 % Eos % (Auto) 0.1 % Baso % (Auto) 0.1 % Neut # (Auto) 11.00 H (1.4-6.5) K/uL Lymph # (Auto) 1.42 (1.2-3.4) K/uL Sumner # (Auto) 1.26 H (0.11-0.59) K/uL Eos # (Auto) 0.02 (0-0.5) K/uL Baso # (Auto) 0.02 (0-0.2) K/uL Immature Gran # (Auto) 0.04 H (0.00-0.02) K/uL PT 20.0 H (9.0-12.0) Seconds INR 2.1 H (0.9-1.1) ABG pH 7.50 H (7.35-7.45) ABG pCO2 33 L (35-46) mmHg ABG pO2 78 L (80-95) mmHg ABG HCO3 26 H (19-24) mmol/L ABG O2 Saturation 96.1 H (90-95) % ABG Base Excess 2.6 H (-9-1.8) mEq/L Pedro Test Pos (Pos) Barometric Pressure 733.3 mm/Hg Oxygen Given 10L Sodium (136-145) mmol/L Potassium (3.5-5.1) mmol/L Chloride (98-107) mmol/L Carbon Dioxide (21-32) mmol/L Anion Gap (3-11) BUN (7-18) mg/dl Creatinine (0.6-1.4) mg/dl Est Cr Clr Drug Dosing ml/min Est GFR ( Amer) Est GFR (Non-Af Amer) BUN/Creatinine Ratio (10-20) Glucose (70-99) mg/dl POC Glucose (70-99) mg/dl Lactate (0.4-2.0) mmol/L Calcium (8.5-10.1) mg/dl Magnesium (1.8-2.4) mg/dl Total Bilirubin (0.2-1) mg/dl AST (15-37) U/L ALT (12-78) U/L Alkaline Phosphatase (45-117) U/L Total Protein (6.4-8.2) gm/dl Albumin (3.4-5.0) gm/dl Globulin (2.5-4.0) gm/dl Albumin/Globulin Ratio (0.9-2) Procalcitonin (0-0.5) ng/ml Urine Color Urine Appearance (Clear) Urine pH (4.5-7.5) Ur Specific [place] (1.000-1.030) Urine Protein (Negative) Urine Glucose (UA) (Negative) Urine Ketones (Negative) Urine Blood (Negative) Urine Nitrite (Negative) Urine Bilirubin (Negative) Urine Urobilinogen (Negative) Ur Leukocyte Esterase (Negative) Urine WBC (Auto) (0-5) /hpf Urine RBC (Auto) (0-4) /hpf U Hyaline Cast (Auto) (0-5) /lpf U Epithel Cells (Auto) (0-5) /lpf Urine Bacteria (Auto) (Negative) Urine Legionella Ag Mycoplasma pneumon IgG Mycoplasma pneumon IgM 07/16/20 07/16/20 07/16/20 Range/Units 20:29 18:37 17:53 WBC (4.8-10.8) K/uL RBC (4.7-6.1) M/uL Hgb (14.0-18.0) g/dL Hct (42-52) % MCV (80-100) fL MCH (25-34) pg MCHC (32-36) g/dL RDW Std Deviation (36.4-46.3) fL RDW Coeff of Rosio (11.5-14.5) % Plt Count (130-400) K/uL MPV (7.4-10.4) fL Immature Gran % (Auto) % Neut % (Auto) % Lymph % (Auto) % Sumner % (Auto) % Eos % (Auto) % Baso % (Auto) % Neut # (Auto) (1.4-6.5) K/uL Lymph # (Auto) (1.2-3.4) K/uL Sumner # (Auto) (0.11-0.59) K/uL Eos # (Auto) (0-0.5) K/uL Baso # (Auto) (0-0.2) K/uL Immature Gran # (Auto) (0.00-0.02) K/uL PT (9.0-12.0) Seconds INR (0.9-1.1) ABG pH 7.55 H* (7.35-7.45) ABG pCO2 30 L (35-46) mmHg ABG pO2 71 L (80-95) mmHg ABG HCO3 26 H (19-24) mmol/L ABG O2 Saturation 95.5 H (90-95) % ABG Base Excess 4.0 H (-9-1.8) mEq/L Pedro Test Pos (Pos) Barometric Pressure 733.7 mm/Hg Oxygen Given 5 LITERS Sodium (136-145) mmol/L Potassium (3.5-5.1) mmol/L Chloride (98-107) mmol/L Carbon Dioxide (21-32) mmol/L Anion Gap (3-11) BUN (7-18) mg/dl Creatinine (0.6-1.4) mg/dl Est Cr Clr Drug Dosing ml/min Est GFR ( Amer) Est GFR (Non-Af Amer) BUN/Creatinine Ratio (10-20) Glucose (70-99) mg/dl POC Glucose 98 108 H (70-99) mg/dl Lactate (0.4-2.0) mmol/L Calcium (8.5-10.1) mg/dl Magnesium (1.8-2.4) mg/dl Total Bilirubin (0.2-1) mg/dl AST (15-37) U/L ALT (12-78) U/L Alkaline Phosphatase (45-117) U/L Total Protein (6.4-8.2) gm/dl Albumin (3.4-5.0) gm/dl Globulin (2.5-4.0) gm/dl Albumin/Globulin Ratio (0.9-2) Procalcitonin (0-0.5) ng/ml Urine Color Urine Appearance (Clear) Urine pH (4.5-7.5) Ur Specific [place] (1.000-1.030) Urine Protein (Negative) Urine Glucose (UA) (Negative) Urine Ketones (Negative) Urine Blood (Negative) Urine Nitrite (Negative) Urine Bilirubin (Negative) Urine Urobilinogen (Negative) Ur Leukocyte Esterase (Negative) Urine WBC (Auto) (0-5) /hpf Urine RBC (Auto) (0-4) /hpf U Hyaline Cast (Auto) (0-5) /lpf U Epithel Cells (Auto) (0-5) /lpf Urine Bacteria (Auto) (Negative) Urine Legionella Ag Mycoplasma pneumon IgG Mycoplasma pneumon IgM Diagnostic Findings CXR 07/17/20: [facility], [phone] XRay Report Patient: MYNOR HOOKSAdmit Date: 07/14/20MR#: [id number]: [id number] ID:[id number]: Date: 1945[facility] Zip: [place] [id number]: 74Location: 2SSex: MRoom/Bed: [id number] Phy: Delta Benedict, MDDiagnosis: ACUTE DECOMPENSATED SYSTOLIC CHFPri Phy: Glenn Payne PA-CService Date: 07/17/20Fam Phy:Interpreting Phy: Adrien Cruz MDAdmit Phy: Delta Benedict MD Ordering Phy: Delta Benedict MD cc: ~ XR chest 1V portable CLINICAL HISTORY: Congestive heart failure COMPARISON STUDY: 07/16/2020 FINDINGS: The heart remains enlarged. There are bilateral pleural effusions. There are bilateral pulmonary airspace opacities consistent with pulmonary edema. There are postsurgical changes of midline sternotomy and valvular replacement. There is a left subclavian pacer/defibrillator present.[ IMPRESSION: No significant change from the preceding study. Continued radiograp hic evidence of pulmonary edema with bilateral pleural effusions Renal US 07/17/20 [facility], [phone] Ultrasound Report Patient: MYNOR HOOKSAdmit Date: 07/14/20MR#: [id number]: [id number] ID:[id number]: Date: 1945ty Zip: [place] [id number]: 74Location: 1ESex: MRoom/Bed: [id number] Phy: Delta Benedict, HERNANDEZiagnosis: ACUTE DECOMPENSATED SYSTOLIC CHFPri Phy: Glenn Payne PA-CService Date: 07/17/20Fam Phy:Interpreting Phy: Ayo Sage MDAdmit Phy: Delta Benedict MD Ordering Phy: Owen Kelley MD cc: ~ RENAL ULTRASOUND CLINICAL HISTORY: Acute kidney injury. COMPARISON STUDY: None. TECHNIQUE: Sonography of the kidneys and the urinary bladder was performed. FINDINGS: There is no hydronephrosis. Left kidney is partially obscured. Right kidney measures 9.9 x 5.5 x 4.6 cm and the left kidney measures 9.6 x 5 x 5 cm. Moderate bilateral renal cortical thinning is noted. Bladder is collapsed, containing a Cordova balloon. There are gallstones and sludge within the gallbladder. There is no gallbladder wall thickening. No pericholecystic fluid is present. IMPRESSION: 1. No hydronephrosis. 2. Moderate bilateral renal cortical thinning. 3. Cholelithiasis and sludge within the gallbladder. No gallbladder wall thickening. No pericholecystic fluid. Resident Activity Tracking Resident Involvement: Resident Care Provided Care Provided: Adult Hospital Medicine (1) CHF (congestive heart failure) Heart failure chronicity: acute on chronic Heart failure type: unspecified Qualified Code(s): I50.9 - Heart failure, unspecified
[2020-07-17] MEDS ORDERED: metOLazone 2.5 MG TABLET PO ONE (13:49)
[2020-07-17] MEDS ORDERED: hydrALAZINE HCL 20 MG/ML VIAL IV ONE (14:03)
[2020-07-17] MEDS ORDERED: hydrALAZINE HCL 20 MG/ML VIAL ONE (14:05)
[2020-07-17] MEDS ORDERED: FUROSEMIDE 60 MG in SYRINGE 0 ML IV ONE (14:30)
--- NOTE | 2020-07-17 14:59 | Hospitalist Progress Note ---
Date of Service July 17, 2020 Assessment & Plan (1) Acute on chronic HFrEF (heart failure with reduced ejection fraction): (2) Hypoxia: (3) Supratherapeutic INR: (4) Diabetes mellitus, type 2: (5) CAD (coronary artery disease): (6) H/O mitral valve replacement: (7) PAF (paroxysmal atrial fibrillation): (8) CKD (chronic kidney disease) stage 4, GFR 15-29 ml/min: (9) OBED on CPAP: This is a 74-year-old male who has significant past medical history of ischemic cardiomyopathy, CAD with history of CABG x1 and angioplasty, biventricular AICD in place, chronic HFrEF with diastolic dysfunction, history of aortic valve and mitral valve replacements, PAF anticoagulated on warfarin, HTN, HLD, OBED on CPAP, insulin-dependent T2DM, CKD stage IIIb4, depression, GERD who presents to ED secondary to shortness of breath x1 week. Acute respiratory failure with hypoxia Acute on chronic systolic and diastolic CHF exacerbation CXR: Cardiomegaly and AICD with evidence of congestive failure. Asymmetric bilateral airspace likely represent pulmonary edema. Small effusions -ECHO: EF 25 to 30%, grade 2 diastolic dysfunction based on inferior and posterior segments are severely hypokinetic to akinetic. The apex is severely hypokinetic to akinetic. Otherwise moderate global hypokinesis. Appropriately functioning aortic and mitral valve bioprosthesis. Significant pulmonary hypertension is present. -Device interrogation completed Continue spironolactone 25 mg daily Monitor Daily weight, I/Os Continue fluid restriction Oxygen support PRN Monitor renal function/electrolytes Appreciate Cardiology/Critical Care Input Continue IV Lasix as per Cardiology Continue BiPAP Low threshold for intubation Consulted critical care Transfer to ICU for further care Possible HCAP Minimal elevation of procalcitonin Started on Rocephin, doxycycline empirically Hypokalemia Replete electrolytes as needed Normal Mag levels Biventricular AICD/pacemaker Device interrogation done Supratherapeutic INR Secondary to Coumadin/Hepatic congestion No acute bleeding issues INR 6.6>6.7>2.4>2.1 Resume Coumadin today Chronic anemia secondary to renal disease Baseline hemoglobin ~10 Monitor CBC CKD stage IV Baseline creatinine 2.2-2.4 Creatinine 2.4 Monitor renal function while on diuretics Avoid nephrotoxic agents as able Valvular heart disease S/P aortic, mitral valve replacement ventricular fibrillation S/P AICD Continue home medications Paroxysmal atrial fibrillation Coumadin on hold secondary to supratherapeutic INR Continue amiodarone, metoprolol CAD S/P CABG Continue Plavix, atorvastatin, metoprolol, Imdur IDDM 2 Last A1c 05/22/2020 6.9 Lantus/NovoLog per protocol Consult glycemic pharmacist in setting of high doses of NovoLog OBED CPAP @ HS GERD Continue PPI Morbid obesity BMI 40 DVT Px: Therapeutic INR Coumadin CODE STATUS Full code Disposition PT OT prior to discharge Admission and Anticipated Discharge Date Admission Date: July 14, 2020 Subjective Patient is seen and examined at bedside Patient was placed on BiPAP overnight for respiratory failure He continues to complain of shortness of breath while on BiPAP Chest x-ray showed pulmonary edema with bilateral pleural effusions Discussed with pulmonology today Patient will be transferred to ICU for further care Patient states having intermittent right upper quadrant discomfort Noted leukocytosis Also states having minimal cough Denies chest pain, dizziness, nausea, vomiting Review of Systems Review of Systems: All systems reviewed & are unremarkable except as noted in HPI & below Physical Exam Physical Exam: Physical Exam: Vitals signs as noted above General Appearance:Obese, no apparent distress Head: normocephalic, Atraumatic Eyes: normal inspection, EOMI Neck: supple, Trachea midline Respiratory/Chest: Normal breath sounds, B/L scattered crackles,+ accessory muscle use Cardiovascular: S1, S2, + murmur Abdomen/GI:Soft, Non tender, Bowel sounds present Extremities/Musculoskeletal:normal inspection, B/L LE Edema Neurologic/Psych:AAOX3, grossly no focal neurological deficits Skin: normal color, warm Results & Data Results & Data ([facility]) Vital Signs (Past 12 Hours) Vital Signs Temp Pulse Pulse Resp BP BP Pulse Ox 07/17/20 14:20 83 41 H 84 L 07/17/20 14:10 80 34 H 94 07/17/20 14:05 26 H 165/103 H 95 07/17/20 14:00 83 33 H 95 07/17/20 13:50 52 H 95 07/17/20 13:49 56 H 155/94 H 95 07/17/20 13:40 36 H 95 07/17/20 13:36 45 H 180/100 H 96 07/17/20 13:30 33 H 92 07/17/20 13:20 81 34 H 94 07/17/20 13:10 79 33 H 94 07/17/20 13:06 79 31 H 107/66 94 07/17/20 13:00 78 34 H 95 07/17/20 12:50 79 26 H 94 07/17/20 12:40 80 35 H 93 07/17/20 12:35 79 37 H 116/64 93 07/17/20 12:34 36.9 C 07/17/20 12:30 78 35 H 94 07/17/20 12:05 79 31 H 103/76 94 07/17/20 12:00 79 30 H 91 07/17/20 11:48 80 38 H 95 07/17/20 11:36 79 35 H 106/69 92 07/17/20 11:35 82 39 H 94 07/17/20 10:57 79 40 H 99 07/17/20 10:22 118/46 L 07/17/20 09:28 77 77 36 H 94 07/17/20 07:06 36.8 C 81 20 112/66 90 07/17/20 04:35 37.3 C 86 24 117/70 90 Laboratory Results Short CBC 07/17/20 Range/Units 06:51 WBC 13.76 H (4.8-10.8) K/uL Hgb 9.4 L (14.0-18.0) g/dL Hct 28.9 L (42-52) % Plt Count 342 (130-400) K/uL BMP 07/17/20 07/17/20 06:51 12:33 Sodium 139 138 Potassium 4.5 D 4.4 Chloride 105 102 Carbon Dioxide 26 24 BUN 36 H 41 H Creatinine 2.38 H D 2.44 H Glucose 77 89 Calcium 9.1 9.1 Liver Function 07/17/20 Range/Units 12:33 Total Bilirubin 1.5 H (0.2-1) mg/dl AST 344 H (15-37) U/L ALT 146 H (12-78) U/L Alkaline Phosphatase 136 H (45-117) U/L Albumin 2.7 L (3.4-5.0) gm/dl Urine 07/17/20 Range/Units 12:35 Urine Color Yellow Urine Appearance Clear (Clear) Urine pH 5.0 (4.5-7.5) Ur Specific [place] 1.011 (1.000-1.030) Urine Protein Negative (Negative) Urine Glucose (UA) Negative (Negative)
[2020-07-17] MEDS ORDERED: RAPID SEQUENCE INDUCTION BAG ONE (15:21)
[2020-07-17] MEDS ORDERED: PROPOFOL IV EMULSION 10 MG/ML 100 ML VIAL IV ONE (15:26)
[2020-07-17] MEDS: WARFARIN SOD 1.25 MG TAB PO SCH (16:28)
--- NOTE | 2020-07-17 16:31 | Billing Data ---
Date of Service July 17, 2020 Coding Level of Care Code Critical Care 1st 30-74 mins Time Spent (min) 63
[2020-07-17] MEDS ORDERED: STAT IV Infusion **Titration per Protocol STA (16:33)
[2020-07-17] MEDS ORDERED: PROPOFOL BOLUS FROM BAG IV PRN (16:33)
--- NOTE | 2020-07-17 16:33 | Procedure Note ---
Procedure Note Date of Service July 17, 2020 Note INTUBATION PROCEDURE NOTE: Dr. Owen Kelley A time-out was completed verifying correct patient, procedure, site, positioning. Patient was evaluated and required intubation for hypoxemic respiratory failure and increased work of breathing. Sedative agent used: 30 mg of etomidate Paralysis agent used: 75 mg of rocuronium Emergent consent was implied given patients rapidly declining clinical status and need for airway protection. Number of attempts: 1 The patient was prepared in the appropriate fashion. Sedation was achieved utilizing 20 mg of etomidate and and 75 mg rocuronium. The patient was easily ventilated using [id number] to achieve adequate oxygenation. A 8 [place] endotracheal tube was placed under glide scope guidance to 23 cm at the lip. The stylette was removed and balloon was inflated with 10mL of air. Appropriate Colorimetric change was appreciated. Bilateral breath sounds were heard without air sounds in the abdomen. Post Intubation Chest X-ray ordered Patient tolerated the procedure well and there were no immediate complications. Coding CPT Codes Resuscitation - Resuscitation: 82518 Endotracheal Intubation, emergency ([id number]) [facility] [place] Procedure Codes (Charges) Resuscitation Resuscitation: 21677 Endotracheal Intubation, emergency
[2020-07-17] MEDS ORDERED: fentaNYL DRIP 1,250 MCG/250 ML BAG IV SCH (16:45)
[2020-07-17] MEDS ORDERED: propofoL 1,000 MG/100 ML VIAL IV SCH (16:45)
[2020-07-17 16:56] LABS: iSTAT Arterial Blood Gas HCO3 27 meg/L (19-24); iSTAT Arterial Blood Gas pCO2 36 mmHg (35-46); iSTAT Arterial Blood Gas pH 7.49 (7.35-7.45); iSTAT Arterial Blood Gas pO2 115 mmHg (80-95); iSTAT Carbon Dioxide 28 mmol/L (24-31)
--- NOTE | 2020-07-17 17:07 | XRay Report ---
XR chest 1V portable HISTORY: Check tube placement. Postintubation. COMPARISON: Chest 07/17/2020. FINDINGS: The endotracheal tube terminates 3.1 cm and the myah. Left-sided pacemaker/defibrillator is again noted. The heart is enlarged. Interstitial and vascular thickening with bilateral hazy airsp naa opacities persist. There are small bilateral pleural fusions, unchanged. The heart is enlarged. T here are poststernotomy changes and a cardiac valve prosthesis. No pneumothorax. IMPRESSION: 1. The endotracheal tube terminates 3.1 cm from the myah. 2. No change in the moderate pulmonary edema and small bilateral pleural effusions. ACT 112: Negative or not required by law. Electronically signed by: Everett Bell M.D. 07/17/2020 5:05 PM
[2020-07-17] MEDS ORDERED: ETOMIDATE 2 MG/ML 20 ML VIAL IV ONE (18:53)
[2020-07-17] MEDS ORDERED: ROCURONIUM BROMIDE 10 MG/ML 5 ML VIAL IV ONE (18:53)
[2020-07-17] MEDS: ATORVASTATIN 40 MG TAB PO SCH (21:37)
[2020-07-17] MEDS: FAMOTIDINE 20 MG in SYRINGE 3 ML IV SCH (22:25)
[2020-07-17] MEDS: DOXYCYCLINE HYCLATE 100 MG in DEXTROSE 5% 100 ML IV SCH (22:25)
[2020-07-18] MEDS: INSULIN ASPART 100 UNITS/ML 3 ML PEN SC SCH ×6 (00:09→20:57)
[2020-07-18 04:50] LABS: iSTAT Arterial Blood Gas HCO3 29 meg/L (19-24); iSTAT Arterial Blood Gas pCO2 39 mmHg (35-46); iSTAT Arterial Blood Gas pH 7.48 (7.35-7.45); iSTAT Arterial Blood Gas pO2 103 mmHg (80-95); iSTAT Carbon Dioxide 30 mmol/L (24-31); iSTAT Hematocrit 35 % (42-52); iSTAT Hemoglobin 11.9 g/dl (14.0-18.0); iSTAT Potassium 4.2 mmol/L (3.3-5.0); iSTAT Sodium 138 mmol/L (135-144)
[2020-07-18 05:26] LABS: Hematocrit (blood only) 27.2 % (42-52); Mean Corpuscular Hemoglobin 30.6 pg (25-34); Mean Corpuscular Hgb Conc 33.1 g/dL (32-36); Mean Corpuscular Volume 92.5 fL (80-100); Mean Platelet Volume 11.6 fL (7.4-10.4); Platelet Count 324 K/uL (130-400); RDW Coefficient of Variation 14.7 % (11.5-14.5); Red Blood Count 2.94 M/uL (4.7-6.1); White Blood Count 10.18 K/uL (4.8-10.8)
[2020-07-18 05:38] LABS: INR 2.1 (0.9-1.1); Prothrombin Time 20.4 Seconds (9.0-12.0)
[2020-07-18 05:53] LABS: BUN Creatinine Ratio 20.4 (10-20); Calcium 8.4 mg/dl (8.5-10.1); Creatinine Clr Calc Pharmacy 32.2 ml/min; Est GFR (African American) 27.9; Est GFR (Non-African American) 24.1; Magnesium 2.4 mg/dl (1.8-2.4); Potassium 4.2 mmol/L (3.5-5.1)
[2020-07-18 05:54] LABS: Phosphorus 4.9 mg/dl (2.5-4.9)
--- NOTE | 2020-07-18 07:17 | XRay Report ---
XR chest 1V portable CLINICAL HISTORY: Infiltrates RESPIRATORY FAILURE COMPARISON STUDY: 07/17/2020 FINDINGS: The heart remains enlarged. There is an endotracheal tube positioned 32 mm above the myah . There are postsurgical changes of midline sternotomy and aortic valve replacement. There is a left subclavian pacer/defibrillator. There is continued radiographic evidence of congestive failure/fluid overload with bilateral pleural effusions airspace opacities, likely representing pulmonary edema. Th ro are equivocally improved.[ IMPRESSION: Equivocal slight improvement in the pulmonary edema pattern. ACT 112: Negative or not required by law. Electronically signed by: Adrien Cruz M.D. 07/18/2020 7:16 AM
[2020-07-18] MEDS: cefTRIAXone SODIUM 2,000 MG in DEXTROSE 5% 50 ML IV SCH (08:52)
[2020-07-18] MEDS: FUROSEMIDE 60 MG in SYRINGE 0 ML IV SCH ×2 (08:53→09:04)
[2020-07-18] MEDS: FAMOTIDINE 20 MG in SYRINGE 3 ML IV SCH (08:53)
[2020-07-18] MEDS: INSULIN GLARGINE SOLOSTAR 100 UNITS/ML 3 ML PEN SC SCH ×2 (08:54→20:58)
--- NOTE | 2020-07-18 09:08 | Hospitalist Progress Note ---
Date of Service July 18, 2020 Assessment & Plan (1) Acute on chronic HFrEF (heart failure with reduced ejection fraction): (2) Hypoxia: (3) Supratherapeutic INR: (4) Diabetes mellitus, type 2: (5) CAD (coronary artery disease): (6) H/O mitral valve replacement: (7) PAF (paroxysmal atrial fibrillation): (8) CKD (chronic kidney disease) stage 4, GFR 15-29 ml/min: (9) OBED on CPAP: This is a 74-year-old male who has significant past medical history of ischemic cardiomyopathy, CAD with history of CABG x1 and angioplasty, biventricular AICD in place, chronic HFrEF with diastolic dysfunction, history of aortic valve and mitral valve replacements, PAF anticoagulated on warfarin, HTN, HLD, OBED on CPAP, insulin-dependent T2DM, CKD stage IIIb4, depression, GERD who presents to ED secondary to shortness of breath x1 week. Acute Vent Dependent respiratory failure with hypoxia Acute on chronic systolic and diastolic CHF exacerbation CXR: Cardiomegaly and AICD with evidence of congestive failure. Asymmetric bilateral airspace likely represent pulmonary edema. Small effusions -ECHO: EF 25 to 30%, grade 2 diastolic dysfunction based on inferior and posterior segments are severely hypokinetic to akinetic. The apex is severely hypokinetic to akinetic. Otherwise moderate global hypokinesis. Appropriately functioning aortic and mitral valve bioprosthesis. Significant pulmonary hypertension is present. Device interrogation completed Continue spironolactone 25 mg daily Monitor Daily weight, I/Os Continue fluid restriction Monitor renal function/electrolytes Continue IV Lasix as per Cardiology Currently intubated Continue ICU, on CPAP now and Propofol at 5, possible extubation today Possible HCAP On Rocephin, doxycycline empirically Hypokalemia Replete electrolytes as needed Normal Mag levels Biventricular AICD/pacemaker Device interrogation done Supratherapeutic INR Secondary to Coumadin/Hepatic congestion No acute bleeding issues INR 6.6>6.7>2.4>2.1>2.1 Resumed Coumadin Chronic anemia secondary to renal disease Baseline hemoglobin ~10 Monitor CBC CKD stage IV Monitor renal function while on diuretics Avoid nephrotoxic agents as able Valvular heart disease S/P aortic, mitral valve replacement ventricular fibrillation S/P AICD Continue home medications Paroxysmal atrial fibrillation Coumadin on hold secondary to supratherapeutic INR Continue amiodarone, metoprolol CAD S/P CABG Continue Plavix, atorvastatin, metoprolol, Imdur IDDM 2 Last A1c 05/22/2020 6.9 Lantus/NovoLog per protocol Consult glycemic pharmacist in setting of high doses of NovoLog OBED On CPAP @ Home GERD Continue PPI Morbid obesity BMI 40 DVT Px: Therapeutic INR Coumadin CODE STATUS Full code Disposition PT OT prior to discharge labs Checked ROS-Sedated and vented Physical Exam Gen-NAD, Afebrile, VSS Head-NCAT, EOMI, PERRLA, Anicteric Sclera, +ETT Neck-Supple, No JVD, No Thyromegaly, No Masses, No LAD, No Bruits Lungs-Clear to Auscultation Bilaterally, No Rales, No Rhonchi, No Wheezing, No Crepitus Chest-No S4, +S1, +S2, No S3, No Murmurs, No Rubs, No Gallops, No Ectopy Abdomen-Soft, Bowel Sounds Present, Non Tender, Non Distended, Obese, No Hepatomegaly, No Splenomegaly, No Palpable Masses, No Rebound, No Rigidity, No Guarding Musculoskeletal-Nor assessed today Extremities-No Cyanosis, No Clubbing, No Edema Nuero-Not examined today Psych-Vented and sedated Admission and Anticipated Discharge Date Admission Date: July 14, 2020 Results & Data Results & Data ([facility]) Vital Signs (Past 12 Hours) Vital Signs Temp Pulse Resp BP Pulse Ox 07/18/20 08:30 37.3 C 65 96 07/18/20 08:20 37.3 C 63 96 07/18/20 08:10 37.3 C 63 07/18/20 08:00 37.2 C 62 07/18/20 07:58 37.2 C 63 111/66 07/18/20 07:50 37.2 C 62 07/18/20 07:40 37.2 C 63 96 07/18/20 07:30 37.2 C 62 07/18/20 07:20 37.2 C 62 07/18/20 07:15 53 L 21 07/18/20 07:10 37.2 C 63 07/18/20 07:00 37.3 C 63 07/18/20 06:58 37.3 C 64 120/69 95 07/18/20 06:50 37.3 C 64 95 07/18/20 06:40 37.3 C 64 95 07/18/20 06:30 37.3 C 63 95 07/18/20 06:20 37.3 C 62 96 07/18/20 06:10 37.3 C 62 95 07/18/20 06:00 37.3 C 61 95 07/18/20 05:58 37.3 C 61 111/62 95 07/18/20 05:50 37.3 C 61 94 07/18/20 05:40 37.3 C 62 95 07/18/20 05:30 37.3 C 63 94 07/18/20 05:20 37.3 C 61 95 07/18/20 05:10 37.3 C 62 95 07/18/20 05:00 37.3 C 62 93 07/18/20 04:58 37.3 C 62 102/60 94 07/18/20 04:50 37.4 C 62 95 07/18/20 04:40 37.4 C 63 95 07/18/20 04:31 37.4 C 62 95 07/18/20 04:29 37.4 C 63 107/78 95 07/18/20 04:22 63 20 97 07/18/20 04:20 37.4 C 62 97 07/18/20 04:10 37.4 C 62 98 07/18/20 04:00 37.4 C 61 97 07/18/20 03:58 37.4 C 61 102/61 98 07/18/20 03:50 37.3 C 61 97 07/18/20 03:40 37.4 C 61 97 07/18/20 03:30 37.3 C 61 97 07/18/20 03:20 37.3 C 61 98 07/18/20 03:10 37.3 C 62 98 07/18/20 03:00 37.3 C 63 99 07/18/20 02:57 37.3 C 62 110/64 98 07/18/20 02:50 37.3 C 62 98 07/18/20 02:40 37.3 C 61 98 07/18/20 02:34 60 07/18/20 02:30 37.3 C 60 98 07/18/20 02:20 37.3 C 60 98 07/18/20 02:10 37.3 C 60 98 07/18/20 02:00 37.3 C 61 97 07/18/20 01:58 37.3 C 60 103/61 97 07/18/20 01:50 37.3 C 60 97 07/18/20 01:40 37.3 C 60 97 07/18/20 01:30 37.3 C 61 97 07/18/20 01:20 37.3 C 61 97 07/18/20 01:10 37.3 C 62 97 07/18/20 01:00 37.3 C 62 97 07/18/20 00:57 37.3 C 62 102/62 97 07/18/20 00:50 37.3 C 63 97 07/18/20 00:45 62 17 98 07/18/20 00:40 37.3 C 63 98 07/18/20 00:30 37.3 C 62 98 07/18/20 00:20 37.3 C 62 98 07/18/20 00:10 37.3 C 62 98 07/18/20 00:00 37.3 C 62 98 07/17/20 23:58 37.3 C 62 100/63 98 07/17/20 23:50 37.3 C 63 97 07/17/20 23:40 37.3 C 65 98 07/17/20 23:30 37.3 C 61 98 07/17/20 23:20 37.3 C 63 98 07/17/20 23:10 37.3 C 64 98 07/17/20 23:00 37.3 C 64 98 07/17/20 22:57 37.3 C 64 120/73 98 07/17/20 22:50 37.3 C 64 99 07/17/20 22:40 37.3 C 64 99 07/17/20 22:30 37.4 C 64 99 07/17/20 22:20 37.4 C 64 99 07/17/20 22:10 37.5 C 65 99 07/17/20 22:00 37.4 C 65 99 07/17/20 21:57 37.4 C 65 121/68 99 07/17/20 21:50 37.5 C 65 99 07/17/20 21:40 37.5 C 65 99 07/17/20 21:30 37.5 C 66 99 07/17/20 21:20 37.5 C 65 98 07/17/20 21:10 37.5 C 66 98 07/17/20 21:00 37.5 C 60 18 98
[2020-07-18] MEDS: DOXYCYCLINE HYCLATE 100 MG in DEXTROSE 5% 100 ML IV SCH ×2 (09:40→21:19)
--- NOTE | 2020-07-18 10:41 | Critical Care Progress Note ---
Date of Service July 18, 2020 Assessment & Plan (1) Acute respiratory failure with hypoxia: Reason critically ill: Acute respiratory failure with hypoxia in the setting of congestive heart failure Neuro: - Delirium precautions Cardiac/Vascular: - ECHO 07/15: EF 25 to 30%. Basal inferior and posterior segments are severely hypokinetic to akinetic. [place] is severely hypokinetic to akinetic. Otherwise moderate global hypokinesis. Grade 2 diastolic dysfunction. Appropriately functioning aortic and mitral valve bioprosthesis. Significant pulmonary hypertension is present. Mildly dilated LV chamber size with mild concentric LVH. - CXR today (07/18): Equivocal slight improvement in the pulmonary edema pattern. - Will discontinue lasix diuresis - Continue to hold spironolactone, metoprolol, and Imdur Respiratory: - Patient intubated yesterday afternoon; successful SBT this AM. Extubated this morning and currently on CPAP - Will continue to monitor GI/Nutrition: - Continue famotidine - NPO at this time as he is on CPAP - Ongoing elevated LFTs elevated, possibly related to congestive hepatopathy; will continue to trend LFTs Renal/Lytes: - JUAN likely multifactorial secondary to lasix use and cardiorenal syndrome - Avoid nephrotoxic agents - Renal US 07/17/20: No hydronephrosis. Moderate bilateral renal cortical thinning. Cholelithiasis and sludge within the gallbladder. No gallbladder wall thickening. No pericholecystic fluid. - Continue to monitor and replete electrolytes as needed Genitourinary: - Matthews catheter in place - Monitor strict Is/Os Endo: - Hx of DM2 - Continue ICU glycemic protocol per pharmacy Heme: - No current concerns of blood loss - H&H 9.0/27.2 today (down slightly from yesterday but likely secondary to repeat blood draws) - Anticoagulated on warfarin at home; on admission, patient with supratherapeutic INR at 6.6; INR is 2.1 today (unchanged from yesterday) - Warfarin restarted yesterday afternoon - Continue to monitor ID: - Leukocytosis from yesterday has resolved; current WBC 10.18 - Labs pending including blood cultures, sputum cultures, UA, legionella antigen, mycoplasma - MRSA nasal screen negative 07/17/20 - Procal elevated at 0.63 on 07/17/20; plan to repeat procal level tomorrow AM (07/19/20) - Continue doxycycline and Rocephin Lines/IV Access: - 2 PIVs established DVT Prophylaxis: SCDs; Anticoagulated on Warfarin (2) CHF (congestive heart failure): (3) Diabetes mellitus, type 2: (4) Hypertension: (5) Hyperlipidemia: (6) CKD (chronic kidney disease) stage 4, GFR 15-29 ml/min: Admission and Anticipated Discharge Date Admission Date: July 14, 2020 Supervising Physician Co-Signing Physician Notes Dr. Jay Was the resident-physician during care of patient. I separately evaluated patient for link portions of the history and the exam. I was present during the critical portion of medical decision making, and I discussed the case with the resident. I generally agree with the findings and plan except for any additions/exceptions noted. Patient markedly improved today from a respiratory standpoint he was successfully extubated directly to BiPAP and now is currently on nasal cannula. We will hold Lasix and spironolactone due to his JUAN. Continue with Rocephin and doxycycline for possible community-acquired pneumonia. Blood cultures are pending. Recommend repeat procalcitonin tomorrow. Stable for transfer to the floor with telemetry. Subjective Patient seen and evaluated at bedside this morning. On initial evaluation, patient still intubated but undergoing SBT. He was responsive to verbal stimuli and followed commands. Denied any pain at this time. On re-evaluation, patient is now extubated and is on CPAP. He complains of a mild sore throat s/p extubation. States that he still feels as if he is SOB but that his SOB is slightly improved from yesterday. No cough. No specific pain including CP or abd pain. Review of Systems Constitutional: no chills and no sweats Ear, Nose, Mouth, Throat: + sore throat Respiratory: + dyspnea; no cough Cardiovascular: no chest pain Gastrointestinal: no abdominal pain, no nausea and no vomiting Neurologic: no headache(s) Physical Exam Physical Exam: GENERAL: No acute distress. Obese. Appears stated age. EYES: PERRLA. EOMI. Anicteric sclerae. HENT: Normocephalic. Atraumatic. Dry mucous membranes. CPAP mask in place. RESPIRATORY: Chest wall motion symmetric. Lungs CTAB. No wheezing. No crackles. + some accessory muscle use. CARDIOVASCULAR: Regular rate and rhythm. 3/6 RUBY. ABDOMEN: Obese abdomen that is soft and non-tender. No palpable masses. Hypoactive bowel sounds. EXTREMITIES: Non-tender. No edema. SKIN: Warm, dry. No rashes noted. NEUROLOGIC: A/O x3. 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 No focal neurological deficits appreciated. PSYCHIATRIC: Cooperative. Appropriate mood and affect. Results & Data Results & Data ([facility]) Vital Signs (Past 12 Hours) Vital Signs Temp Pulse Resp BP Pulse Ox 07/18/20 08:30 37.3 C 65 96 07/18/20 08:20 37.3 C 63 96 07/18/20 08:10 37.3 C 63 07/18/20 08:00 37.2 C 62 07/18/20 07:58 37.2 C 63 111/66 07/18/20 07:50 37.2 C 62 07/18/20 07:40 37.2 C 63 96 07/18/20 07:30 37.2 C 62 07/18/20 07:20 37.2 C 62 07/18/20 07:15 53 L 21 07/18/20 07:10 37.2 C 63 07/18/20 07:00 37.3 C 63 07/18/20 06:58 37.3 C 64 120/69 07/18/20 06:50 37.3 C 64 07/18/20 06:40 37.3 C 64 07/18/20 06:30 37.3 C 63 07/18/20 06:20 37.3 C 62 96 07/18/20 06:10 37.3 C 62 07/18/20 06:00 37.3 C 61 07/18/20 05:58 37.3 C 61 111/62 07/18/20 05:50 37.3 C 61 94 07/18/20 05:40 37.3 C 62 07/18/20 05:30 37.3 C 63 07/18/20 05:20 37.3 C 61 07/18/20 05:10 37.3 C 62 07/18/20 05:00 37.3 C 62 93 07/18/20 04:58 37.3 C 62 102/60 07/18/20 04:50 37.4 C 62 07/18/20 04:40 37.4 C 63 95 07/18/20 04:31 37.4 C 62 95 07/18/20 04:29 37.4 C 63 107/78 95 07/18/20 04:22 63 20 97 07/18/20 04:20 37.4 C 62 97 07/18/20 04:10 37.4 C 62 98 07/18/20 04:00 37.4 C 61 97 07/18/20 03:58 37.4 C 61 102/61 98 07/18/20 03:50 37.3 C 61 97 07/18/20 03:40 37.4 C 61 97 07/18/20 03:30 37.3 C 61 97 07/18/20 03:20 37.3 C 61 98 07/18/20 03:10 37.3 C 62 98 07/18/20 03:00 37.3 C 63 99 07/18/20 02:57 37.3 C 62 110/64 98 07/18/20 02:50 37.3 C 62 98 07/18/20 02:40 37.3 C 61 98 07/18/20 02:34 60 07/18/20 02:30 37.3 C 60 98 07/18/20 02:20 37.3 C 60 98 07/18/20 02:10 37.3 C 60 98 07/18/20 02:00 37.3 C 61 97 07/18/20 01:58 37.3 C 60 103/61 97 07/18/20 01:50 37.3 C 60 97 07/18/20 01:40 37.3 C 60 97 07/18/20 01:30 37.3 C 61 97 07/18/20 01:20 37.3 C 61 97 07/18/20 01:10 37.3 C 62 97 07/18/20 01:00 37.3 C 62 97 07/18/20 00:57 37.3 C 62 102/62 97 07/18/20 00:50 37.3 C 63 97 07/18/20 00:45 62 17 98 07/18/20 00:40 37.3 C 63 98 07/18/20 00:30 37.3 C 62 98 07/18/20 00:20 37.3 C 62 98 07/18/20 00:10 37.3 C 62 98 07/18/20 00:00 37.3 C 62 98 07/17/20 23:58 37.3 C 62 100/63 98 07/17/20 23:50 37.3 C 63 97 07/17/20 23:40 37.3 C 65 98 07/17/20 23:30 37.3 C 61 98 07/17/20 23:20 37.3 C 63 98 07/17/20 23:10 37.3 C 64 98 07/17/20 23:00 37.3 C 64 98 07/17/20 22:57 37.3 C 64 120/73 98 07/17/20 22:50 37.3 C 64 99 07/17/20 22:40 37.3 C 64 99 07/17/20 22:30 37.4 C 64 99 Resident Activity Tracking Resident Involvement: Resident Care Provided Care Provided: Adult Hospital Medicine (1) CHF (congestive heart failure) Heart failure chronicity: acute on chronic Heart failure type: unspecified Qualified Code(s): I50.9 - Heart failure, unspecified
[2020-07-18 10:44] LABS: Albumin Level 2.3 gm/dl (3.4-5.0); Bilirubin Direct 0.3 mg/dl (0-0.2); Bilirubin,Total 0.8 mg/dl (0.2-1); Total Protein 6.5 gm/dl (6.4-8.2)
[2020-07-18] MEDS: CLOPIDOGREL BISULFATE 75 MG TAB PO SCH (11:38)
[2020-07-18] MEDS: ASCORBIC ACID 500 MG TAB PO SCH ×2 (11:38→20:48)
[2020-07-18] MEDS: DULoxetine HCL 20 MG CAP PO SCH (11:38)
[2020-07-18] MEDS: ISOSORBIDE MONO EXTENDED REL 60 MG TABCR PO SCH (11:38)
[2020-07-18] MEDS: MAGNESIUM OXIDE 400 MG TAB PO SCH (11:40)
[2020-07-18] MEDS: POTASSIUM CHLORIDE 10 MEQ TABCR PO SCH ×2 (11:40→20:50)
[2020-07-18] MEDS: DOCUSATE SODIUM 100 MG CAP PO SCH ×2 (11:42→20:50)
--- NOTE | 2020-07-18 11:44 | Billing Data ---
Date of Service July 18, 2020 Coding Level of Care Code 22799 Subseq Hosp Care Lvl 3
[2020-07-18] MEDS: AMIODARONE 200 MG TAB PO SCH (11:45)
--- NOTE | 2020-07-18 11:56 | Pharmacy Report ---
Pharmacy Glycemic Short Note 2 - Date of Service July 18, 2020 - Glycemic Short BSG Results (Last 24 hours): 07/17/20 07/17/20 07/17/20 12:04 12:33 15:47 Glucose 89 POC Glucose 127 H 115 H 07/17/20 07/17/20 07/18/20 21:23 23:47 04:50 Glucose 109 H POC Glucose 145 H 137 H 07/18/20 07/18/20 07/18/20 05:29 07:50 11:33 Glucose POC Glucose 119 H 116 H 125 H OUTPATIENT ANTIDIABETIC REGIMEN: * Tresiba 36 units SQ AM * NovoLog with meals: 28 units with breakfast + 50 units with lunch + 56 units with dinner + 7 units at HS * Total daily dose = 177 units/day * A1c = 6.8% on 07/16/20 ASSESSMENT: 07/17 * Only 32 units SQ insulin given in last 24 hrs despite significant stressors. * Patient was transferred to ICU yesterday and was intubated * This AM patient passed SBT and was extubated * Swallow eval is pending, uncertain when this will be performed - could possibly be NPO until tomorrow AM * Will scale and divide Lantus dose BID given reduced PO intake and above NPO concerns * Novolog CF and CR will be based roughly on patient's reported out-pt total daily insulin dose 07/16: * Mr. Durham received a total of 35 units of insulin yesterday * 20 units basal + 15 units bolus * BSGs were well controlled: 44-431-840-107 mg/dL * Fasting BSG has increased to 174 mg/dL this AM * Will get double the dose of Lantus that he received yesterday per scale (likely basal deficient from not receiving enough Lantus yesterday) * No changes to Novolog as of now 07/14: * 74yo T2DM male with unknown degree of outpatient control - last A1c in January was in range but now outdated * Pt is maintained on high dose SQ basal bolus insulin regimen. Regimen is heavily weighted towards prandial insulin * BSG on admit is 148 mg/dl. * Will continue outpatient dosing of basal insulin as long as fasting BSG is in range; slightl decrease or increase for above or below range * Will set aggressive CF/CR per outpatient regimen. Likely, CHO intake will be less inpatient as compared to outpatient so dosing per CHO ratio is preferred to set bolus dosing (outpatient dosing) PLAN FOR INPATIENT GLYCEMIC CONTROL: * Basal insulin * Lantus BID per scale: * 0 units if BSG less than 110 * 10 units if BSG 110-180 * 18 units if BSG above 180 * Bolus insulin * NovoLog per scale ACHS or Q6hrs while NPO * Goal Range: Low 110 mg/dL - High 140 mg/dL * Correction Factor: 20 mg/dL/unit * Nutritional / Prandial insulin per carb ratio of 1 unit per 5 grams CHO consumed PLAN FOR DISCHARGE: * HbA1c = 6.8% from this admission. This is at goal for this patient. * Recommend continuing outpatient insulin regimen as long as patient is not experiencing any hypoglycemia at home.
--- NOTE | 2020-07-18 13:16 | Cardiology Progress Note ---
Date of Service July 18, 2020 Assessment & Plan (1) Hypoxia: (2) Acute on chronic HFrEF (heart failure with reduced ejection fraction): (3) Malfunction of implantable defibrillator ventricular (ICD) lead: (4) History of ventricular fibrillation: (5) Diabetes mellitus, type 2: (6) Hypertension: (7) OBED on CPAP: (8) CKD (chronic kidney disease) stage 4, GFR 15-29 ml/min: (9) PAF (paroxysmal atrial fibrillation): (10) H/O mitral valve replacement: (11) H/O aortic valve replacement: (12) CAD (coronary artery disease): (13) Pacemaker at end of battery life: Patient presents with 3 weeks of worsening dyspnea with exertion. Upon arrival did examine his volume overloaded with significant asymmetric bilateral airspace likely representing pulmonary edema with small effusions. Unfortunately, his respiratory status has declined despite aggressive diuresis. He does not examine his volume overloaded at this time. He is only diuresed 1800 mL despite aggressive diuresis. IV Lasix will not be restarted. We will continue to follow his volume status clinically prior to reinstituting his oral diuretics. His white count is now elevated with a left shift and pro calcitonin level is positive as well suggestive of infectious disease. Appreciate recommendations from our critical care team and will obviously defer oxygenation recommendations. Device interrogation shows an appropriately performing BiV ICD with 100% BiV pacing which is obviously our goal of therapy. Continue current doses of aspirin, amiodarone, atorvastatin, Plavix, metoprolol Imdur, spironolactone and warfarin. There is a significant suspicion that he will lapse into atrial fibrillation during this event but we can deal with that medically once his pulmonary status improves. Admission and Anticipated Discharge Date Admission Date: July 14, 2020 Subjective Patient seen and examined, chart reviewed. Patient was successfully extubated this a.m. and is currently tolerating BiPAP well. Clinically, appears more comfortable today on BiPAP. Little to no respiratory distress. States his breathing is better but his throat is a little sore. Denies chest pain, palpitations, lightheadedness or dizziness. Telemetry reviewed: AV paced rhythm without arrhythmias. Review of Systems Review of Systems: All systems reviewed & are unremarkable except as noted in HPI & below Physical Exam Physical Exam: General: Awake, alert and oriented x 3. No acute distress on BiPAP. HEENT: Normocephalic, atraumatic. Pupils equal, round and reactive to light and accommodation. Extraocular muscles are intact. Anicteric sclera. Moist mucous membranes. Neck: No JVD. No bruit. Cardiovascular: Regular. Positive S-4. Normal S-1 and S-2. No S-3. 3/6 mid to late systolic ejection murmur, greatest at the right sternal border, second intercostal space with radiation to the bilateral carotids. No rubs. Pulmonary: Clear to auscultation bilaterally. No rales, rhonchi, or wheezing. Abdomen: Bowel sounds x 4, soft. No rebound, guarding or tenderness. No organomegaly. Extremities: No clubbing, cyanosis or edema. +2 pedal pulses bilaterally. Skin: Warm and dry. Results & Data ([facility]) Vital Signs (Past 12 Hours) Vital Signs Temp Pulse Pulse Resp BP BP Pulse Ox 07/18/20 11:37 36.4 C L 66 18 99/62 L 98 07/18/20 11:20 37.2 C 64 100 07/18/20 11:10 37.3 C 65 99 07/18/20 11:00 37.3 C 65 99 07/18/20 10:58 37.3 C 65 115/63 99 07/18/20 10:50 37.3 C 65 99 07/18/20 10:40 37.3 C 65 100 07/18/20 10:30 37.2 C 65 98 07/18/20 10:20 37.2 C 66 100 07/18/20 10:10 37.3 C 65 98 07/18/20 10:00 37.3 C 65 98 07/18/20 09:58 37.3 C 65 99/69 L 99 07/18/20 09:50 37.2 C 66 100 07/18/20 09:40 37.3 C 65 98 07/18/20 09:30 37.3 C 64 19 100 07/18/20 09:20 37.3 C 66 95 07/18/20 09:10 37.3 C 66 96 07/18/20 09:00 37.3 C 66 96 07/18/20 08:58 37.3 C 66 120/68 96 07/18/20 08:50 37.3 C 66 96 07/18/20 08:40 37.3 C 66 07/18/20 08:30 37.3 C 65 96 07/18/20 08:20 37.3 C 63 96 07/18/20 08:10 37.3 C 63 95 07/18/20 08:00 37.2 C 62 95 07/18/20 07:58 37.2 C 63 111/66 07/18/20 07:50 37.2 C 62 95 07/18/20 07:40 37.2 C 63 96 07/18/20 07:30 37.2 C 62 07/18/20 07:20 37.2 C 62 95 07/18/20 07:15 53 L 21 07/18/20 07:10 37.2 C 63 07/18/20 07:00 37.3 C 63 95 07/18/20 06:58 37.3 C 64 120/69 07/18/20 06:50 37.3 C 64 07/18/20 06:40 37.3 C 64 07/18/20 06:30 37.3 C 63 07/18/20 06:20 37.3 C 62 96 07/18/20 06:10 37.3 C 62 07/18/20 06:00 37.3 C 61 95 07/18/20 05:58 37.3 C 61 111/62 07/18/20 05:50 37.3 C 61 94 07/18/20 05:40 37.3 C 62 95 07/18/20 05:30 37.3 C 63 94 07/18/20 05:20 37.3 C 61 07/18/20 05:10 37.3 C 62 95 07/18/20 05:00 37.3 C 62 93 07/18/20 04:58 37.3 C 62 102/60 94 07/18/20 04:50 37.4 C 62 95 07/18/20 04:40 37.4 C 63 95 07/18/20 04:31 37.4 C 62 95 07/18/20 04:29 37.4 C 63 107/78 95 07/18/20 04:22 63 20 97 07/18/20 04:20 37.4 C 62 97 07/18/20 04:10 37.4 C 62 98 07/18/20 04:00 37.4 C 61 97 07/18/20 03:58 37.4 C 61 102/61 98 07/18/20 03:50 37.3 C 61 97 07/18/20 03:40 37.4 C 61 97 07/18/20 03:30 37.3 C 61 97 07/18/20 03:20 37.3 C 61 98 07/18/20 03:10 37.3 C 62 98 07/18/20 03:00 37.3 C 63 99 07/18/20 02:57 37.3 C 62 110/64 98 07/18/20 02:50 37.3 C 62 98 07/18/20 02:40 37.3 C 61 98 07/18/20 02:34 60 07/18/20 02:30 37.3 C 60 98 07/18/20 02:20 37.3 C 60 98 07/18/20 02:10 37.3 C 60 98 07/18/20 02:00 37.3 C 61 97 07/18/20 01:58 37.3 C 60 103/61 97 07/18/20 01:50 37.3 C 60 97 07/18/20 01:40 37.3 C 60 97 07/18/20 01:30 37.3 C 61 97 07/18/20 01:20 37.3 C 61 97
[2020-07-18] MEDS: WARFARIN SOD 1.25 MG TAB PO SCH (17:03)
[2020-07-18] MEDS ORDERED: NITROGLYCERIN SL 0.4 MG/TAB TAB SL PRN (17:33)
[2020-07-18] MEDS: ATORVASTATIN 40 MG TAB PO SCH (20:48)
[2020-07-19] MEDS: INSULIN ASPART 100 UNITS/ML 3 ML PEN SC SCH ×6 (00:29→20:32)
[2020-07-19 05:52] LABS: INR 3.3 (0.9-1.1); Prothrombin Time 30.2 Seconds (9.0-12.0)
--- NOTE | 2020-07-19 08:27 | Hospitalist Progress Note ---
Date of Service July 19, 2020 Assessment & Plan (1) Acute on chronic HFrEF (heart failure with reduced ejection fraction): (2) Hypoxia: (3) Supratherapeutic INR: (4) Diabetes mellitus, type 2: (5) CAD (coronary artery disease): (6) H/O mitral valve replacement: (7) PAF (paroxysmal atrial fibrillation): (8) CKD (chronic kidney disease) stage 4, GFR 15-29 ml/min: (9) OBED on CPAP: This is a 74-year-old male who has significant past medical history of ischemic cardiomyopathy, CAD with history of CABG x1 and angioplasty, biventricular AICD in place, chronic HFrEF with diastolic dysfunction, history of aortic valve and mitral valve replacements, PAF anticoagulated on warfarin, HTN, HLD, OBED on CPAP, insulin-dependent T2DM, CKD stage IIIb4, depression, GERD who presents to ED secondary to shortness of breath x1 week. Acute Vent Dependent respiratory failure with hypoxia-Now Extubated Acute on chronic systolic and diastolic CHF exacerbation CXR: Cardiomegaly and AICD with evidence of congestive failure. Asymmetric bilateral airspace likely represent pulmonary edema. Small effusions -ECHO: EF 25 to 30%, grade 2 diastolic dysfunction based on inferior and posterior segments are severely hypokinetic to akinetic. The apex is severely hypokinetic to akinetic. Otherwise moderate global hypokinesis. Appropriately functioning aortic and mitral valve bioprosthesis. Significant pulmonary hypertension is present. Device interrogation completed Continue spironolactone 25 mg daily Monitor Daily weight, I/Os Continue fluid restriction Monitor renal function/electrolytes Continue IV Lasix as per Cardiology PCU status Possible HCAP On Rocephin, doxycycline empirically Hypokalemia Replete electrolytes as needed Normal Mag levels Biventricular AICD/pacemaker Device interrogation done Supratherapeutic INR Secondary to Coumadin/Hepatic congestion No acute bleeding issues INR 6.6>6.7>2.4>2.1>2.1>3.3 Coumadin Resumed Chronic anemia secondary to renal disease Baseline hemoglobin ~10 Monitor CBC CKD stage IV Monitor renal function while on diuretics Avoid nephrotoxic agents as able Valvular heart disease S/P aortic, mitral valve replacement ventricular fibrillation S/P AICD Continue home medications Paroxysmal atrial fibrillation Coumadin on hold secondary to supratherapeutic INR Continue amiodarone, metoprolol CAD S/P CABG Continue Plavix, atorvastatin, metoprolol, Imdur IDDM 2 Last A1c 05/22/2020 6.9 Lantus/NovoLog per protocol Consult glycemic pharmacist in setting of high doses of NovoLog OBED On CPAP @ Home GERD Continue PPI Morbid obesity BMI 40 DVT Px: Therapeutic INR Coumadin CODE STATUS Full code Disposition PT/OT labs Checked ROS-No Headache, No Visual Changes, No Nausea, No Vomiting, No Fever, No Chills, No Neck Pain or Stiffness, No Chest Pain, No Palpitations, No SOB, No SIERRA, No Cough, No Sputum, No Wheezing, No Abdominal Pain, No Diarrhea, No Hematemesis, No Hemoptysis, No Unexpected Weight Loss, No Flank pain, No Melena, No Hematochezia, No Frequency, No Urgency, No Burning, No Hematuria, No Rashes, No Diaphoresis. Appetite is Normal Physical Exam Gen-AAO x 3, NAD, Afebrile, obese Head-NCAT, EOMI, PERRLA, Anicteric Sclera, No Posterior Pharyngeal Erythema Neck-Supple, No JVD, No Thyromegaly, No Masses, No LAD, No Bruits Lungs-Clear to Auscultation Bilaterally, No Rales, No Rhonchi, No Wheezing, No Crepitus Chest-No S4, +S1, +S2, No S3, No Murmurs, No Rubs, No Gallops, No Ectopy Abdomen-Soft, Bowel Sounds Present, obese, Non Tender, Non Distended, No Hepatomegaly, No Splenomegaly, No Palpable Masses, No Rebound, No Rigidity, No Guarding Musculoskeletal-Full Range of Motion Bilaterally, No CVAT Extremities-No Cyanosis, No Clubbing, No Edema Nuero-Cranial Nerves II-XII grossly intact, Motor WNL, DTRs WNL, Strength WNL, Non Focal Psych-Normal Mood Admission and Anticipated Discharge Date Admission Date: July 14, 2020 Results & Data Results & Data ([facility]) Vital Signs (Past 12 Hours) Vital Signs Temp Pulse Pulse Resp BP Pulse Ox 07/19/20 08:08 36.6 C 77 16 122/61 95 07/19/20 06:02 69 21 95 07/19/20 04:00 36.4 C L 68 21 124/59 L 98 07/19/20 00:28 36.5 C 73 21 123/66 95 07/19/20 00:10 72 19 95
[2020-07-19] MEDS: CHOLECALCIFEROL 1,000 UNITS 25 MCG TAB PO SCH (08:31)
[2020-07-19] MEDS: cefTRIAXone SODIUM 2,000 MG in DEXTROSE 5% 50 ML IV SCH (08:31)
[2020-07-19] MEDS: CLOPIDOGREL BISULFATE 75 MG TAB PO SCH (08:31)
[2020-07-19] MEDS: ASCORBIC ACID 500 MG TAB PO SCH ×2 (08:31→20:38)
[2020-07-19] MEDS: DOCUSATE SODIUM 100 MG CAP PO SCH ×2 (08:32→20:38)
[2020-07-19] MEDS: DULoxetine HCL 20 MG CAP PO SCH (08:32)
[2020-07-19] MEDS: FAMOTIDINE 20 MG in SYRINGE 3 ML IV SCH (08:32)
[2020-07-19] MEDS: INSULIN GLARGINE SOLOSTAR 100 UNITS/ML 3 ML PEN SC SCH ×2 (08:32→20:33)
[2020-07-19] MEDS: POTASSIUM CHLORIDE 10 MEQ TABCR PO SCH ×2 (08:33→20:37)
[2020-07-19] MEDS: ISOSORBIDE MONO EXTENDED REL 60 MG TABCR PO SCH (08:33)
[2020-07-19] MEDS: MAGNESIUM OXIDE 400 MG TAB PO SCH (08:33)
[2020-07-19] MEDS: SPIRONOLACTONE 25 MG TAB PO SCH (09:12)
[2020-07-19] MEDS: METOPROLOL SUCC 50MG EXT REL TAB PO SCH (09:12)
[2020-07-19] MEDS: DOXYCYCLINE HYCLATE 100 MG in DEXTROSE 5% 100 ML IV SCH ×2 (09:18→21:49)
--- NOTE | 2020-07-19 12:40 | Pharmacy Report ---
Pharmacy Glycemic Short Note 2 - Date of Service July 19, 2020 - Glycemic Short BSG Results (Last 24 hours): 07/18/20 07/18/20 07/19/20 16:35 20:56 00:23 POC Glucose 155 H 161 H 134 H 07/19/20 07/19/20 07/19/20 03:55 07:30 11:21 POC Glucose 127 H 141 H 221 H OUTPATIENT ANTIDIABETIC REGIMEN: * Tresiba 36 units SQ AM * NovoLog with meals: 28 units with breakfast + 50 units with lunch + 56 units with dinner + 7 units at HS * Total daily dose = 177 units/day * A1c = 6.8% on 07/16/20 ASSESSMENT: 07/18 * 24 units SQ insulin given over last 24 hrs * BSGs at goal most of this time with the exception of pre-lunch hyperglycemia noted today * Fasting BSG 141 this AM with 20 units Lantus on board; will adjust dosing scale to allow for larger basal dose if elevated * Will not react to first post-prandial BSG elevation as the current CR had produced desirable results earlier this admission, that being said he requires substantial prandial insulin doses per his outpt med list - thus we may need to titrate the Novolog dose upwards if post-prandial hyperglycemia continues 07/17 * Only 32 units SQ insulin given in last 24 hrs despite significant stressors. * Patient was transferred to ICU yesterday and was intubated * This AM patient passed SBT and was extubated * Swallow eval is pending, uncertain when this will be performed - could possibly be NPO until tomorrow AM * Will scale and divide Lantus dose BID given reduced PO intake and above NPO concerns * Novolog CF and CR will be based roughly on patient's reported out-pt total daily insulin dose 07/16: * Mr. Durham received a total of 35 units of insulin yesterday * 20 units basal + 15 units bolus * BSGs were well controlled: 14-821-117-107 mg/dL * Fasting BSG has increased to 174 mg/dL this AM * Will get double the dose of Lantus that he received yesterday per scale (likely basal deficient from not receiving enough Lantus yesterday) * No changes to Novolog as of now PLAN FOR INPATIENT GLYCEMIC CONTROL: * Basal insulin * Lantus BID per scale: * 0 units if BSG less than 110 * 10 units if BSG 110-130 * 18 units if BSG above 130 * Bolus insulin * NovoLog per scale ACHS or Q6hrs while NPO * Goal Range: Low 110 mg/dL - High 140 mg/dL * Correction Factor: 20 mg/dL/unit * Nutritional / Prandial insulin per carb ratio of 1 unit per 5 grams CHO consumed PLAN FOR DISCHARGE: * HbA1c = 6.8% from this admission. This is at goal for this patient. * Recommend continuing outpatient insulin regimen as long as patient is not experiencing any hypoglycemia at home.
[2020-07-19] MEDS: WARFARIN SOD 1.25 MG TAB PO SCH (15:09)
[2020-07-19] MEDS: ATORVASTATIN 40 MG TAB PO SCH (20:38)
[2020-07-20 06:50] LABS: Hematocrit (blood only) 30.6 % (42-52); Hemoglobin 9.8 g/dL (14.0-18.0); Mean Corpuscular Hemoglobin 29.9 pg (25-34); Mean Corpuscular Volume 93.3 fL (80-100); Mean Platelet Volume 11.7 fL (7.4-10.4); Platelet Count 332 K/uL (130-400); RDW Coefficient of Variation 14.6 % (11.5-14.5); RDW Standard Deviation 49.6 fL (36.4-46.3); Red Blood Count 3.28 M/uL (4.7-6.1); White Blood Count 8.06 K/uL (4.8-10.8)
[2020-07-20 07:13] LABS: INR 4.2 (0.9-1.1); Prothrombin Time 37.7 Seconds (9.0-12.0)
[2020-07-20 07:16] LABS: BUN Creatinine Ratio 25.7 (10-20); Calcium 8.3 mg/dl (8.5-10.1); Creatinine Clr Calc Pharmacy 36.5 ml/min; Est GFR (Non-African American) 29.3; Potassium 3.9 mmol/L (3.5-5.1)
[2020-07-20] MEDS: ASCORBIC ACID 500 MG TAB PO SCH ×2 (07:43→20:05)
[2020-07-20] MEDS: CLOPIDOGREL BISULFATE 75 MG TAB PO SCH (07:43)
[2020-07-20] MEDS: DULoxetine HCL 20 MG CAP PO SCH (07:44)
[2020-07-20] MEDS: METOPROLOL SUCC 50MG EXT REL TAB PO SCH (07:45)
[2020-07-20] MEDS: ISOSORBIDE MONO EXTENDED REL 60 MG TABCR PO SCH (07:45)
[2020-07-20] MEDS: SPIRONOLACTONE 25 MG TAB PO SCH (07:46)
[2020-07-20] MEDS: POTASSIUM CHLORIDE 10 MEQ TABCR PO SCH ×2 (07:46→20:06)
[2020-07-20] MEDS: DOCUSATE SODIUM 100 MG CAP PO SCH ×2 (07:48→20:05)
[2020-07-20] MEDS: FAMOTIDINE 20 MG in SYRINGE 3 ML IV SCH (07:51)
[2020-07-20] MEDS: cefTRIAXone SODIUM 2,000 MG in DEXTROSE 5% 50 ML IV SCH (07:52)
[2020-07-20] MEDS: INSULIN ASPART 100 UNITS/ML 3 ML PEN SC SCH ×4 (08:00→20:42)
[2020-07-20] MEDS: INSULIN GLARGINE SOLOSTAR 100 UNITS/ML 3 ML PEN SC SCH (08:01)
[2020-07-20] MEDS: MAGNESIUM OXIDE 400 MG TAB PO SCH (08:16)
--- NOTE | 2020-07-20 08:53 | Hospitalist Progress Note ---
Date of Service July 20, 2020 Assessment & Plan (1) Acute on chronic HFrEF (heart failure with reduced ejection fraction): (2) Hypoxia: (3) Supratherapeutic INR: (4) Diabetes mellitus, type 2: (5) CAD (coronary artery disease): (6) H/O mitral valve replacement: (7) PAF (paroxysmal atrial fibrillation): (8) CKD (chronic kidney disease) stage 4, GFR 15-29 ml/min: (9) OBED on CPAP: This is a 74-year-old male who has significant past medical history of ischemic cardiomyopathy, CAD with history of CABG x1 and angioplasty, biventricular AICD in place, chronic HFrEF with diastolic dysfunction, history of aortic valve and mitral valve replacements, PAF anticoagulated on warfarin, HTN, HLD, OBED on CPAP, insulin-dependent T2DM, CKD stage IIIb4, depression, GERD who presents to ED secondary to shortness of breath x1 week. Acute Vent Dependent respiratory failure with hypoxia-Now Extubated Acute on chronic systolic and diastolic CHF exacerbation CXR: Cardiomegaly and AICD with evidence of congestive failure. Asymmetric bilateral airspace likely represent pulmonary edema. Small effusions -ECHO: EF 25 to 30%, grade 2 diastolic dysfunction based on inferior and posterior segments are severely hypokinetic to akinetic. The apex is severely hypokinetic to akinetic. Otherwise moderate global hypokinesis. Appropriately functioning aortic and mitral valve bioprosthesis. Significant pulmonary hypertension is present. Device interrogation completed Continue spironolactone 25 mg daily Monitor Daily weight, I/Os Continue fluid restriction Monitor renal function/electrolytes Continue IV Lasix as per Cardiology PCU status Possible HCAP On Rocephin, doxycycline Hypokalemia Replete electrolytes as needed Normal Mag levels Biventricular AICD/pacemaker Device interrogation done Supratherapeutic INR Secondary to Coumadin/Hepatic congestion No acute bleeding issues Coumadin Resumed Chronic anemia secondary to renal disease Baseline hemoglobin ~10 Monitor CBC CKD stage IV Monitor renal function while on diuretics Avoid nephrotoxic agents as able Valvular heart disease S/P aortic, mitral valve replacement ventricular fibrillation S/P AICD Continue home medications Paroxysmal atrial fibrillation Coumadin on hold secondary to supratherapeutic INR Continue amiodarone, metoprolol CAD S/P CABG Continue Plavix, atorvastatin, metoprolol, Imdur IDDM 2 Last A1c 05/22/2020 6.9 Lantus/NovoLog per protocol Consult glycemic pharmacist in setting of high doses of NovoLog OBED On CPAP @ Home GERD Continue PPI Morbid obesity BMI 40 DVT Px: Therapeutic INR Coumadin CODE STATUS Full code Disposition PT/OT labs Checked Feeling better each day ROS-No Headache, No Visual Changes, No Nausea, No Vomiting, No Fever, No Chills, No Neck Pain or Stiffness, No Chest Pain, No Palpitations, No SOB, No SIERRA, No Cough, No Sputum, No Wheezing, No Abdominal Pain, No Diarrhea, No Hematemesis, No Hemoptysis, No Unexpected Weight Loss, No Flank pain, No Melena, No Hematochezia, No Frequency, No Urgency, No Burning, No Hematuria, No Rashes, No Diaphoresis. Appetite is Normal Physical Exam Gen-AAO x 3, NAD, Afebrile, obese Head-NCAT, EOMI, PERRLA, Anicteric Sclera, No Posterior Pharyngeal Erythema Neck-Supple, No JVD, No Thyromegaly, No Masses, No LAD, No Bruits Lungs-Clear to Auscultation Bilaterally, No Rales, No Rhonchi, No Wheezing, No Crepitus Chest-No S4, +S1, +S2, No S3, No Murmurs, No Rubs, No Gallops, No Ectopy Abdomen-Soft, Bowel Sounds Present, obese, Non Tender, Non Distended, No Hepatomegaly, No Splenomegaly, No Palpable Masses, No Rebound, No Rigidity, No Guarding Musculoskeletal-Full Range of Motion Bilaterally, No CVAT Extremities-No Cyanosis, No Clubbing, No Edema Nuero-Cranial Nerves II-XII grossly intact, Motor WNL, DTRs WNL, Strength WNL, Non Focal Psych-Normal Mood Admission and Anticipated Discharge Date Admission Date: July 14, 2020 Results & Data Results & Data ([facility]) Vital Signs (Past 12 Hours) Vital Signs Temp Pulse Pulse Resp BP Pulse Ox 07/20/20 08:47 36.5 C 69 16 120/73 92 07/20/20 04:13 36.4 C L 68 16 110/73 94 07/19/20 23:52 36.8 C 69 14 119/68 97 07/19/20 23:15 70 20 97
[2020-07-20] MEDS ORDERED: INSULIN GLARGINE SOLOSTAR 100 UNITS/ML 3 ML PEN SC SCH ×2 (09:00→16:00)
[2020-07-20] MEDS: DOXYCYCLINE HYCLATE 100 MG in DEXTROSE 5% 100 ML IV SCH ×2 (09:09→22:08)
--- NOTE | 2020-07-20 10:09 | Pharmacy Report ---
Pharmacy Glycemic Short Note 2 - Date of Service July 20, 2020 - Glycemic Short BSG Results (Last 24 hours): 07/19/20 07/19/20 07/19/20 11:21 16:20 20:31 Glucose POC Glucose 221 H 185 H 180 H 07/20/20 07/20/20 06:22 07:23 Glucose 137 H POC Glucose 166 H OUTPATIENT ANTIDIABETIC REGIMEN: * Tresiba 36 units SQ AM * NovoLog with meals: 28 units with breakfast + 50 units with lunch + 56 units with dinner + 7 units at HS * Total daily dose = 177 units/day * A1c = 6.8% on 07/16/20 ASSESSMENT: 07/20: * Pt has received 55 units of insulin over the past 24hrs * 28 units of basal with Lantus * 27 units of bolus with NovoLog * BSGs [id number] mg/dl * Lantus is currently ordered as BID dosing but patient takes Lantus daily in AM as an outpatient. Lantus when changed to BID when patient intubated. Will work dosing back to Q24hrs in the AM * Post-prandial BSGs elevated yesterday - will tighten CF/CR. 07/18 * 24 units SQ insulin given over last 24 hrs * BSGs at goal most of this time with the exception of pre-lunch hyperglycemia noted today * Fasting BSG 141 this AM with 20 units Lantus on board; will adjust dosing scale to allow for larger basal dose if elevated * Will not react to first post-prandial BSG elevation as the current CR had produced desirable results earlier this admission, that being said he requires substantial prandial insulin doses per his outpt med list - thus we may need to titrate the Novolog dose upwards if post-prandial hyperglycemia continues 07/17 * Only 32 units SQ insulin given in last 24 hrs despite significant stressors. * Patient was transferred to ICU yesterday and was intubated * This AM patient passed SBT and was extubated * Swallow eval is pending, uncertain when this will be performed - could possibly be NPO until tomorrow AM * Will scale and divide Lantus dose BID given reduced PO intake and above NPO concerns * Novolog CF and CR will be based roughly on patient's reported out-pt total daily insulin dose 07/16: * Mr. Durham received a total of 35 units of insulin yesterday * 20 units basal + 15 units bolus * BSGs were well controlled: 35-325-774-107 mg/dL * Fasting BSG has increased to 174 mg/dL this AM * Will get double the dose of Lantus that he received yesterday per scale (likely basal deficient from not receiving enough Lantus yesterday) * No changes to Novolog as of now PLAN FOR INPATIENT GLYCEMIC CONTROL: * Basal insulin * Lantus change back to Q24hrs in AM dosing * Lantus 20 units SQ x 1 dose this AM then per scale starting 5 AM : * 20 units if BSG less than 140 * 30 units if BSG 140-180 * 40 units if BSG above 180 * Bolus insulin: tighten CF/CR * NovoLog per scale ACHS or Q6hrs while NPO * Goal Range: Low 110 mg/dL - High 140 mg/dL * Correction Factor: 15 mg/dL/unit * Nutritional / Prandial insulin per carb ratio of 1 unit per 4 grams CHO consumed PLAN FOR DISCHARGE: * HbA1c = 6.8% from this admission. This is at goal for this patient. * Recommend continuing outpatient insulin regimen as long as patient is not experiencing any hypoglycemia at home.
--- NOTE | 2020-07-20 15:00 | Cardiology Progress Note ---
Date of Service July 20, 2020 Assessment & Plan (1) Hypoxia: (2) Acute on chronic HFrEF (heart failure with reduced ejection fraction): (3) Malfunction of implantable defibrillator ventricular (ICD) lead: (4) History of ventricular fibrillation: (5) Diabetes mellitus, type 2: (6) Hypertension: (7) OBED on CPAP: (8) CKD (chronic kidney disease) stage 4, GFR 15-29 ml/min: (9) PAF (paroxysmal atrial fibrillation): (10) H/O mitral valve replacement: (11) H/O aortic valve replacement: (12) CAD (coronary artery disease): (13) Pacemaker at end of battery life: Patient presents with 3 weeks of worsening dyspnea with exertion. Upon arrival did examine his volume overloaded with significant asymmetric bilateral airspace likely representing pulmonary edema with small effusions. Unfortunately, his respiratory status has declined despite aggressive diuresis. Improved with antibiotic treatment for possible community-acquired pneumonia. Diuretics were held due to acute kidney injury and lack of volume overload. Renal function remains a little low and will continue to hold diuretics at this time and follow volume status clinically as an outpatient. Okay to DC to rehab from a cardiac standpoint. Device interrogation shows an appropriately performing BiV ICD with 100% BiV pa cing which is obviously our goal of therapy. Continue current doses of aspirin, amiodarone, atorvastatin, Plavix, metoprolol Imdur and warfarin. There is a significant suspicion that he will lapse into atrial fibrillation during this event but we can deal with that medically once his pulmonary status improves. Admission and Anticipated Discharge Date Admission Date: July 14, 2020 Subjective Patient seen and examined, out of bed in chair, chart reviewed. States his breathing is feeling much better today but feels very weak and tired. Denies any cardiac complaints of chest pain, palpitations, lightheadedness, dizziness or syncope. Telemetry reviewed: AV paced Review of Systems Review of Systems: All systems reviewed & are unremarkable except as noted in HPI & below Results & Data ([facility]) Vital Signs (Past 12 Hours) Vital Signs Temp Pulse Resp BP Pulse Ox Pulse Ox Pulse Ox 07/20/20 11:56 36.5 C 65 16 117/73 95 07/20/20 11:02 92 89 L 07/20/20 08:47 36.5 C 69 16 120/73 92 07/20/20 04:13 36.4 C L 68 16 110/73 94 Pulse Ox 07/20/20 11:56 07/20/20 11:02 87 L 07/20/20 08:47 07/20/20 04:13
[2020-07-20 18:33] LABS: Mycoplasma pneumoniae Ab, IgG 2.43 (<=0.90)
[2020-07-20] MEDS ORDERED: guaiFENesin/CODEINE 100MG/10MG 5ML UDC PO PRN (19:53)
[2020-07-20] MEDS: ATORVASTATIN 40 MG TAB PO SCH (20:05)
[2020-07-21] MEDS: INSULIN ASPART 100 UNITS/ML 3 ML PEN SC SCH ×6 (00:14→21:21)
[2020-07-21 07:15] LABS: Hematocrit (blood only) 30.7 % (42-52); Hemoglobin 9.7 g/dL (14.0-18.0); Mean Corpuscular Hemoglobin 29.8 pg (25-34); Mean Corpuscular Hgb Conc 31.6 g/dL (32-36); Mean Corpuscular Volume 94.5 fL (80-100); Mean Platelet Volume 11.5 fL (7.4-10.4); Platelet Count 302 K/uL (130-400); RDW Coefficient of Variation 14.5 % (11.5-14.5); RDW Standard Deviation 49.9 fL (36.4-46.3); Red Blood Count 3.25 M/uL (4.7-6.1)
[2020-07-21 07:31] LABS: BUN Creatinine Ratio 27.2 (10-20); Calcium 8.7 mg/dl (8.5-10.1); Creatinine Clr Calc Pharmacy 40.7 ml/min; Est GFR (African American) 39.4; Potassium 4.5 mmol/L (3.5-5.1)
[2020-07-21 07:37] LABS: INR 4.7 (0.9-1.1); Prothrombin Time 42.3 Seconds (9.0-12.0)
[2020-07-21] MEDS: CHOLECALCIFEROL 1,000 UNITS 25 MCG TAB PO SCH (07:50)
[2020-07-21] MEDS: ASCORBIC ACID 500 MG TAB PO SCH ×2 (07:50→20:23)
[2020-07-21] MEDS: CLOPIDOGREL BISULFATE 75 MG TAB PO SCH (07:51)
[2020-07-21] MEDS: DULoxetine HCL 20 MG CAP PO SCH (07:51)
[2020-07-21] MEDS: MAGNESIUM OXIDE 400 MG TAB PO SCH (07:52)
[2020-07-21] MEDS: ISOSORBIDE MONO EXTENDED REL 60 MG TABCR PO SCH (07:52)
[2020-07-21] MEDS: METOPROLOL SUCC 50MG EXT REL TAB PO SCH (07:52)
[2020-07-21] MEDS: SPIRONOLACTONE 25 MG TAB PO SCH (07:53)
[2020-07-21] MEDS: POTASSIUM CHLORIDE 10 MEQ TABCR PO SCH ×2 (07:53→20:26)
[2020-07-21] MEDS: cefTRIAXone SODIUM 2,000 MG in DEXTROSE 5% 50 ML IV SCH (07:58)
[2020-07-21] MEDS: DOCUSATE SODIUM 100 MG CAP PO SCH ×2 (07:58→20:30)
[2020-07-21] MEDS: FAMOTIDINE 20 MG in SYRINGE 3 ML IV SCH (07:59)
[2020-07-21] MEDS: INSULIN GLARGINE SOLOSTAR 100 UNITS/ML 3 ML PEN SC SCH (08:03)
[2020-07-21] MEDS: DOXYCYCLINE HYCLATE 100 MG in DEXTROSE 5% 100 ML IV SCH ×2 (08:47→20:30)
--- NOTE | 2020-07-21 09:15 | Hospitalist Progress Note ---
Date of Service July 21, 2020 Assessment & Plan (1) Acute on chronic HFrEF (heart failure with reduced ejection fraction): (2) Hypoxia: (3) Supratherapeutic INR: (4) Diabetes mellitus, type 2: (5) CAD (coronary artery disease): (6) H/O mitral valve replacement: (7) PAF (paroxysmal atrial fibrillation): (8) CKD (chronic kidney disease) stage 4, GFR 15-29 ml/min: (9) OBED on CPAP: This is a 74-year-old male who has significant past medical history of ischemic cardiomyopathy, CAD with history of CABG x1 and angioplasty, biventricular AICD in place, chronic HFrEF with diastolic dysfunction, history of aortic valve and mitral valve replacements, PAF anticoagulated on warfarin, HTN, HLD, OBED on CPAP, insulin-dependent T2DM, CKD stage IIIb4, depression, GERD who presents to ED secondary to shortness of breath x1 week. S/P Acute Vent Dependent respiratory failure with hypoxia Acute on chronic systolic and diastolic CHF exacerbation CXR: Cardiomegaly and AICD with evidence of congestive failure. Asymmetric bilateral airspace likely represent pulmonary edema. Small effusions -ECHO: EF 25 to 30%, grade 2 diastolic dysfunction based on inferior and posterior segments are severely hypokinetic to akinetic. The apex is severely hypokinetic to akinetic. Otherwise moderate global hypokinesis. Appropriately functioning aortic and mitral valve bioprosthesis. Significant pulmonary hypertension is present. Device interrogation completed Continue spironolactone 25 mg daily Monitor Daily weight, I/Os Continue fluid restriction Monitor renal function/electrolytes Continue IV Lasix as per Cardiology PCU status Possible HCAP On Rocephin, doxycycline Hypokalemia Replete electrolytes as needed Normal Mag levels Biventricular AICD/pacemaker Device interrogation done Supratherapeutic INR Secondary to Coumadin/Hepatic congestion No acute bleeding issues Coumadin Resumed Chronic anemia secondary to renal disease Baseline hemoglobin ~10 Monitor CBC CKD stage IV Monitor renal function while on diuretics Avoid nephrotoxic agents as able Valvular heart disease S/P aortic, mitral valve replacement ventricular fibrillation S/P AICD Continue home medications Paroxysmal atrial fibrillation Coumadin on hold secondary to supratherapeutic INR Continue amiodarone, metoprolol CAD S/P CABG Continue Plavix, atorvastatin, metoprolol, Imdur IDDM 2 Last A1c 05/22/2020 6.9 Lantus/NovoLog per protocol Consult glycemic pharmacist in setting of high doses of NovoLog OBED On CPAP @ Home GERD Continue PPI Morbid obesity BMI 40 DVT Px: Therapeutic INR Coumadin CODE STATUS Full code Disposition PT/OT labs Checked Feeling better each day, awaiting SNF bed ROS-No Headache, No Visual Changes, No Nausea, No Vomiting, No Fever, No Chills, No Neck Pain or Stiffness, No Chest Pain, No Palpitations, No SOB, No SIERRA, No Cough, No Sputum, No Wheezing, No Abdominal Pain, No Diarrhea, No Hematemesis, No Hemoptysis, No Unexpected Weight Loss, No Flank pain, No Melena, No Hematochezia, No Frequency, No Urgency, No Burning, No Hematuria, No Rashes, No Diaphoresis. Appetite is Normal Physical Exam Gen-AAO x 3, NAD, Afebrile, obese Head-NCAT, EOMI, PERRLA, Anicteric Sclera, No Posterior Pharyngeal Erythema Neck-Supple, No JVD, No Thyromegaly, No Masses, No LAD, No Bruits Lungs-Clear to Auscultation Bilaterally, No Rales, No Rhonchi, No Wheezing, No Crepitus Chest-No S4, +S1, +S2, No S3, No Murmurs, No Rubs, No Gallops, No Ectopy Abdomen-Soft, Bowel Sounds Present, obese, Non Tender, Non Distended, No Hepatomegaly, No Splenomegaly, No Palpable Masses, No Rebound, No Rigidity, No Guarding Musculoskeletal-Full Range of Motion Bilaterally, No CVAT Extremities-No Cyanosis, No Clubbing, No Edema Nuero-Cranial Nerves II-XII grossly intact, Motor WNL, DTRs WNL, Strength WNL, Non Focal Psych-Normal Mood Admission and Anticipated Discharge Date Admission Date: July 14, 2020 Results & Data Results & Data ([facility]) Vital Signs (Past 12 Hours) Vital Signs Temp Pulse Pulse Resp BP BP Pulse Ox 07/21/20 08:46 37.2 C 74 18 142/63 H 94 07/21/20 07:27 67 07/21/20 03:44 37.1 C 65 16 131/72 97 07/21/20 00:00 64 07/20/20 23:14 36.9 C 63 19 112/70 96
[2020-07-21] MEDS: ATORVASTATIN 40 MG TAB PO SCH (20:24)
[2020-07-22 07:13] LABS: Hematocrit (blood only) 31.2 % (42-52); Hemoglobin 9.8 g/dL (14.0-18.0); Mean Corpuscular Hemoglobin 29.9 pg (25-34); Mean Corpuscular Hgb Conc 31.4 g/dL (32-36); Mean Corpuscular Volume 95.1 fL (80-100); Mean Platelet Volume 11.8 fL (7.4-10.4); Platelet Count 325 K/uL (130-400); RDW Coefficient of Variation 14.8 % (11.5-14.5); RDW Standard Deviation 50.1 fL (36.4-46.3); Red Blood Count 3.28 M/uL (4.7-6.1); White Blood Count 8.83 K/uL (4.8-10.8)
[2020-07-22 07:35] LABS: Albumin Level 2.5 gm/dl (3.4-5.0); BUN Creatinine Ratio 24.2 (10-20); Calcium 8.9 mg/dl (8.5-10.1); Creatinine Clr Calc Pharmacy 42.1 ml/min; Est GFR (African American) 38.4; Est GFR (Non-African American) 33.2; Potassium 5.1 mmol/L (3.5-5.1)
[2020-07-22 07:37] LABS: Albumin Globulin Ratio 0.6 (0.9-2); Bilirubin,Total 0.6 mg/dl (0.2-1); Globulin 4.4 gm/dl (2.5-4.0); Total Protein 6.9 gm/dl (6.4-8.2)
[2020-07-22 07:39] LABS: Prothrombin Time 44.3 Seconds (9.0-12.0)
[2020-07-22] MEDS: INSULIN ASPART 100 UNITS/ML 3 ML PEN SC SCH ×4 (07:39→20:53)
[2020-07-22] MEDS: MAGNESIUM OXIDE 400 MG TAB PO SCH (07:40)
[2020-07-22] MEDS: SPIRONOLACTONE 25 MG TAB PO SCH (07:41)
[2020-07-22] MEDS: CLOPIDOGREL BISULFATE 75 MG TAB PO SCH (07:41)
[2020-07-22] MEDS: ISOSORBIDE MONO EXTENDED REL 60 MG TABCR PO SCH (07:41)
[2020-07-22] MEDS: DULoxetine HCL 20 MG CAP PO SCH (07:41)
[2020-07-22] MEDS: METOPROLOL SUCC 50MG EXT REL TAB PO SCH (07:41)
[2020-07-22] MEDS: ASCORBIC ACID 500 MG TAB PO SCH ×2 (07:42→21:20)
[2020-07-22] MEDS: POTASSIUM CHLORIDE 10 MEQ TABCR PO SCH ×2 (07:42→21:20)
[2020-07-22] MEDS: FAMOTIDINE 20 MG in SYRINGE 3 ML IV SCH (07:45)
[2020-07-22] MEDS: cefTRIAXone SODIUM 2,000 MG in DEXTROSE 5% 50 ML IV SCH (07:45)
[2020-07-22] MEDS: DOCUSATE SODIUM 100 MG CAP PO SCH ×2 (07:45→21:20)
--- NOTE | 2020-07-22 07:47 | Hospitalist Progress Note ---
Date of Service July 22, 2020 Assessment & Plan (1) Acute on chronic HFrEF (heart failure with reduced ejection fraction): (2) Hypoxia: (3) Supratherapeutic INR: (4) Diabetes mellitus, type 2: (5) CAD (coronary artery disease): (6) H/O mitral valve replacement: (7) PAF (paroxysmal atrial fibrillation): (8) CKD (chronic kidney disease) stage 4, GFR 15-29 ml/min: (9) OBED on CPAP: This is a 74-year-old male who has significant past medical history of ischemic cardiomyopathy, CAD with history of CABG x1 and angioplasty, biventricular AICD in place, chronic HFrEF with diastolic dysfunction, history of aortic valve and mitral valve replacements, PAF anticoagulated on warfarin, HTN, HLD, OBED on CPAP, insulin-dependent T2DM, CKD stage IIIb4, depression, GERD who presents to ED secondary to shortness of breath x1 week. S/P Acute Vent Dependent respiratory failure with hypoxia Acute on chronic systolic and diastolic CHF exacerbation CXR: Cardiomegaly and AICD with evidence of congestive failure. Asymmetric bilateral airspace likely represent pulmonary edema. Small effusions -ECHO: EF 25 to 30%, grade 2 diastolic dysfunction based on inferior and posterior segments are severely hypokinetic to akinetic. The apex is severely hypokinetic to akinetic. Otherwise moderate global hypokinesis. Appropriately functioning aortic and mitral valve bioprosthesis. Significant pulmonary hypertension is present. Device interrogation completed Continue spironolactone 25 mg daily Monitor Daily weight, I/Os Continue fluid restriction Monitor renal function/electrolytes Continue IV Lasix as per Cardiology PCU status Possible HCAP On Rocephin, Doxycycline Hypokalemia Replete electrolytes as needed Normal Mag levels Biventricular AICD/pacemaker Device interrogation done Supratherapeutic INR Secondary to Coumadin/Hepatic congestion No acute bleeding issues Coumadin Resumed Chronic anemia secondary to renal disease Baseline hemoglobin ~10 Monitor CBC CKD stage IV Monitor renal function while on diuretics Avoid nephrotoxic agents as able Valvular heart disease S/P aortic, mitral valve replacement ventricular fibrillation S/P AICD Continue home medications Paroxysmal atrial fibrillation Coumadin on hold secondary to supratherapeutic INR Continue amiodarone, metoprolol CAD S/P CABG Continue Plavix, atorvastatin, metoprolol, Imdur IDDM 2 Last A1c 05/22/2020 6.9 Lantus/NovoLog per protocol Consult glycemic pharmacist in setting of high doses of NovoLog OBED On CPAP @ Home GERD Continue PPI Morbid obesity BMI 40 DVT Px: Therapeutic INR Coumadin CODE STATUS Full code Disposition PT/OT labs Checked Feeling better each day, awaiting SNF bed, transfer to med/surg ROS-No Headache, No Visual Changes, No Nausea, No Vomiting, No Fever, No Chills, No Neck Pain or Stiffness, No Chest Pain, No Palpitations, No SOB, No SIERRA, No Cough, No Sputum, No Wheezing, No Abdominal Pain, No Diarrhea, No Hematemesis, No Hemoptysis, No Unexpected Weight Loss, No Flank pain, No Melena, No Hematochezia, No Frequency, No Urgency, No Burning, No Hematuria, No Rashes, No Diaphoresis. Appetite is Normal Physical Exam Gen-AAO x 3, NAD, Afebrile, obese Head-NCAT, EOMI, PERRLA, Anicteric Sclera, No Posterior Pharyngeal Erythema Neck-Supple, No JVD, No Thyromegaly, No Masses, No LAD, No Bruits Lungs-Clear to Auscultation Bilaterally, No Rales, No Rhonchi, No Wheezing, No Crepitus Chest-No S4, +S1, +S2, No S3, No Murmurs, No Rubs, No Gallops, No Ectopy Abdomen-Soft, Bowel Sounds Present, obese, Non Tender, Non Distended, No Hepatomegaly, No Splenomegaly, No Palpable Masses, No Rebound, No Rigidity, No Guarding Musculoskeletal-Full Range of Motion Bilaterally, No CVAT Extremities-No Cyanosis, No Clubbing, No Edema Nuero-Cranial Nerves II-XII grossly intact, Motor WNL, DTRs WNL, Strength WNL, Non Focal Psych-Normal Mood Admission and Anticipated Discharge Date Admission Date: July 14, 2020 Results & Data Results & Data ([facility]) Vital Signs (Past 12 Hours) Vital Signs Temp Pulse Pulse Resp BP Pulse Ox 07/22/20 07:25 36.6 C 67 20 129/79 95 07/22/20 03:36 36.7 C 69 19 117/89 98 07/22/20 03:05 64 22 94 07/22/20 00:00 60 07/21/20 22:51 36.5 C 63 19 149/77 H 95 07/21/20 22:19 90 20 95
[2020-07-22] MEDS: INSULIN GLARGINE SOLOSTAR 100 UNITS/ML 3 ML PEN SC SCH (09:50)
[2020-07-22] MEDS: DOXYCYCLINE HYCLATE 100 MG in DEXTROSE 5% 100 ML IV SCH ×2 (10:28→21:25)
--- NOTE | 2020-07-22 11:29 | Pharmacy Report ---
Pharmacy Glycemic Short Note 2 - Date of Service July 22, 2020 - Glycemic Short BSG Results (Last 24 hours): 07/21/20 07/21/20 07/22/20 16:35 21:02 07:00 Glucose 103 H POC Glucose 109 H 115 H 07/22/20 07:30 Glucose POC Glucose 109 H OUTPATIENT ANTIDIABETIC REGIMEN: * Tresiba 36 units SQ AM * NovoLog with meals: 28 units with breakfast + 50 units with lunch + 56 units with dinner + 7 units at HS * Total daily dose = 177 units/day * A1c = 6.8% on 07/16/20 ASSESSMENT: 07/22: * Pt has received 39 units of insulin over the past 24hrs * 20 units of basal with Lantus * 19 units of bolus with NovoLog * BSGs 109-159 mg/dl * No changes needed at this time 07/20: * Pt has received 55 units of insulin over the past 24hrs * 28 units of basal with Lantus * 27 units of bolus with NovoLog * BSGs [id number] mg/dl * Lantus is currently ordered as BID dosing but patient takes Lantus daily in AM as an outpatient. Lantus when changed to BID when patient intubated. Will work dosing back to Q24hrs in the AM * Post-prandial BSGs elevated yesterday - will tighten CF/CR. 07/18 * 24 units SQ insulin given over last 24 hrs * BSGs at goal most of this time with the exception of pre-lunch hyperglycemia noted today * Fasting BSG 141 this AM with 20 units Lantus on board; will adjust dosing scale to allow for larger basal dose if elevated * Will not react to first post-prandial BSG elevation as the current CR had produced desirable results earlier this admission, that being said he requires substantial prandial insulin doses per his outpt med list - thus we may need to titrate the Novolog dose upwards if post-prandial hyperglycemia continues 07/17 * Only 32 units SQ insulin given in last 24 hrs despite significant stressors. * Patient was transferred to ICU yesterday and was intubated * This AM patient passed SBT and was extubated * Swallow eval is pending, uncertain when this will be performed - could possibly be NPO until tomorrow AM * Will scale and divide Lantus dose BID given reduced PO intake and above NPO concerns * Novolog CF and CR will be based roughly on patient's reported out-pt total daily insulin dose 07/16: * Mr. Durham received a total of 35 units of insulin yesterday * 20 units basal + 15 units bolus * BSGs were well controlled: [id number] mg/dL * Fasting BSG has increased to 174 mg/dL this AM * Will get double the dose of Lantus that he received yesterday per scale (likely basal deficient from not receiving enough Lantus yesterday) * No changes to Novolog as of now PLAN FOR INPATIENT GLYCEMIC CONTROL: * Basal insulin * Lantus SQ QAM * 20 units if BSG less than 140 * 30 units if BSG 140-180 * 40 units if BSG above 180 * Bolus insulin: * NovoLog per scale ACHS or Q6hrs while NPO * Goal Range: Low 110 mg/dL - High 140 mg/dL * Correction Factor: 15 mg/dL/unit * Nutritional / Prandial insulin per carb ratio of 1 unit per 4 grams CHO consumed PLAN FOR DISCHARGE: * HbA1c = 6.8% from this admission. This is at goal for this patient. * Recommend continuing outpatient insulin regimen as long as patient is not experiencing any hypoglycemia at home.
[2020-07-22] MEDS: ATORVASTATIN 40 MG TAB PO SCH (21:20)
[2020-07-23 06:00] LABS: Hematocrit (blood only) 28.5 % (42-52); Hemoglobin 9.2 g/dL (14.0-18.0); Mean Corpuscular Hemoglobin 30.5 pg (25-34); Mean Corpuscular Hgb Conc 32.3 g/dL (32-36); Mean Corpuscular Volume 94.4 fL (80-100); Mean Platelet Volume 11.7 fL (7.4-10.4); Platelet Count 295 K/uL (130-400); RDW Standard Deviation 50.8 fL (36.4-46.3); Red Blood Count 3.02 M/uL (4.7-6.1); White Blood Count 8.77 K/uL (4.8-10.8)
[2020-07-23 06:17] LABS: INR 4.8 (0.9-1.1)
[2020-07-23 06:40] LABS: Albumin Level 2.4 gm/dl (3.4-5.0); BUN Creatinine Ratio 24.4 (10-20); Calcium 8.7 mg/dl (8.5-10.1); Creatinine Clr Calc Pharmacy 42.7 ml/min; Est GFR (African American) 39.2; Est GFR (Non-African American) 33.8; Potassium 4.8 mmol/L (3.5-5.1)
[2020-07-23 06:43] LABS: Albumin Globulin Ratio 0.6 (0.9-2); Bilirubin,Total 0.6 mg/dl (0.2-1); Globulin 3.8 gm/dl (2.5-4.0); Total Protein 6.2 gm/dl (6.4-8.2)
[2020-07-23] MEDS: MAGNESIUM OXIDE 400 MG TAB PO SCH (08:15)
[2020-07-23] MEDS: DULoxetine HCL 20 MG CAP PO SCH (08:15)
[2020-07-23] MEDS: ISOSORBIDE MONO EXTENDED REL 60 MG TABCR PO SCH (08:15)
[2020-07-23] MEDS: ASCORBIC ACID 500 MG TAB PO SCH ×2 (08:15→20:56)
[2020-07-23] MEDS: CHOLECALCIFEROL 1,000 UNITS 25 MCG TAB PO SCH (08:16)
[2020-07-23] MEDS: CLOPIDOGREL BISULFATE 75 MG TAB PO SCH (08:16)
[2020-07-23] MEDS: SPIRONOLACTONE 25 MG TAB PO SCH (08:17)
[2020-07-23] MEDS: METOPROLOL SUCC 50MG EXT REL TAB PO SCH (08:17)
[2020-07-23] MEDS: POTASSIUM CHLORIDE 10 MEQ TABCR PO SCH ×2 (08:17→20:57)
[2020-07-23] MEDS: DOCUSATE SODIUM 100 MG CAP PO SCH ×2 (08:18→20:56)
[2020-07-23] MEDS: FAMOTIDINE 20 MG in SYRINGE 3 ML IV SCH (08:21)
[2020-07-23] MEDS: INSULIN ASPART 100 UNITS/ML 3 ML PEN SC SCH ×4 (08:22→20:54)
[2020-07-23] MEDS: cefTRIAXone SODIUM 2,000 MG in DEXTROSE 5% 50 ML IV SCH (08:31)
[2020-07-23] MEDS ORDERED: INSULIN GLARGINE SOLOSTAR 100 UNITS/ML 3 ML PEN SC SCH (09:00)
[2020-07-23] MEDS: DOXYCYCLINE HYCLATE 100 MG in DEXTROSE 5% 100 ML IV SCH ×2 (09:03→22:47)
--- NOTE | 2020-07-23 09:34 | Hospitalist Progress Note ---
Date of Service July 23, 2020 Assessment & Plan (1) Acute on chronic HFrEF (heart failure with reduced ejection fraction): (2) Hypoxia: (3) Supratherapeutic INR: (4) Diabetes mellitus, type 2: (5) CAD (coronary artery disease): (6) H/O mitral valve replacement: (7) PAF (paroxysmal atrial fibrillation): (8) CKD (chronic kidney disease) stage 4, GFR 15-29 ml/min: (9) OBED on CPAP: This is a 74-year-old male who has significant past medical history of ischemic cardiomyopathy, CAD with history of CABG x1 and angioplasty, biventricular AICD in place, chronic HFrEF with diastolic dysfunction, history of aortic valve and mitral valve replacements, PAF anticoagulated on warfarin, HTN, HLD, OBED on CPAP, insulin-dependent T2DM, CKD stage IIIb4, depression, GERD who presents to ED secondary to shortness of breath x1 week. S/P Acute Vent Dependent respiratory failure with hypoxia Acute on chronic systolic and diastolic CHF exacerbation CXR: Cardiomegaly and AICD with evidence of congestive failure. Asymmetric bilateral airspace likely represent pulmonary edema. Small effusions -ECHO: EF 25 to 30%, grade 2 diastolic dysfunction based on inferior and posterior segments are severely hypokinetic to akinetic. The apex is severely hypokinetic to akinetic. Otherwise moderate global hypokinesis. Appropriately functioning aortic and mitral valve bioprosthesis. Significant pulmonary hypertension is present. Device interrogation completed Continue spironolactone 25 mg daily Monitor Daily weight, I/Os Continue fluid restriction Monitor renal function/electrolytes IV Lasix 80 mg x 1 dose GMF On Rocephin, Doxycycline SNF when accepted Hypokalemia Replete electrolytes as needed Normal Mag levels Biventricular AICD/pacemaker Device interrogation done Supratherapeutic INR Secondary to Coumadin/Hepatic congestion No acute bleeding issues Coumadin held Chronic anemia secondary to renal disease Baseline hemoglobin ~10 Monitor CBC CKD stage IV Monitor renal function while on diuretics Avoid nephrotoxic agents as able Valvular heart disease S/P aortic, mitral valve replacement ventricular fibrillation S/P AICD Continue home medications Paroxysmal atrial fibrillation Coumadin on hold secondary to supratherapeutic INR Continue amiodarone, metoprolol CAD S/P CABG Continue Plavix, atorvastatin, metoprolol, Imdur IDDM 2 Last A1c 05/22/2020 6.9 Lantus/NovoLog per protocol Consult glycemic pharmacist in setting of high doses of NovoLog OBED On CPAP @ Home GERD Continue PPI Morbid obesity BMI 40 DVT Px: Therapeutic INR Coumadin held CODE STATUS Full code Disposition PT/OT labs Checked Feeling better each day, awaiting SNF bed, on med/surg, one dose of lasix today, bladder training and DC cordova later today ROS-No Headache, No Visual Changes, No Nausea, No Vomiting, No Fever, No Chills, No Neck Pain or Stiffness, No Chest Pain, No Palpitations, No SOB, No SIERRA, No Cough, No Sputum, No Wheezing, No Abdominal Pain, No Diarrhea, No Hematemesis, No Hemoptysis, No Unexpected Weight Loss, No Flank pain, No Melena, No Hematochezia, No Frequency, No Urgency, No Burning, No Hematuria, No Rashes, No Diaphoresis. Appetite is Normal Physical Exam Gen-AAO x 3, NAD, Afebrile, obese Head-NCAT, EOMI, PERRLA, Anicteric Sclera, No Posterior Pharyngeal Erythema Neck-Supple, No JVD, No Thyromegaly, No Masses, No LAD, No Bruits Lungs-Clear to Auscultation Bilaterally, + Rales, No Rhonchi, No Wheezing, No Crepitus Chest-No S4, +S1, +S2, No S3, No Murmurs, No Rubs, No Gallops, No Ectopy Abdomen-Soft, Bowel Sounds Present, obese, Non Tender, Non Distended, No Hepatomegaly, No Splenomegaly, No Palpable Masses, No Rebound, No Rigidity, No Guarding Musculoskeletal-Full Range of Motion Bilaterally, No CVAT Extremities-No Cyanosis, No Clubbing, No Edema Nuero-Cranial Nerves II-XII grossly intact, Motor WNL, DTRs WNL, Strength WNL, Non Focal Psych-Normal Mood Admission and Anticipated Discharge Date Admission Date: July 14, 2020 Results & Data Results & Data ([facility]) Vital Signs (Past 12 Hours) Vital Signs Temp Pulse Pulse Resp BP Pulse Ox 07/23/20 06:57 18 108/62 98 07/22/20 22:10 36.8 C 64 20 130/79 93 07/22/20 22:05 66 22 96
--- NOTE | 2020-07-23 09:39 | Discharge Summary ---
Date of Service July 23, 2020 Admission HPI Per Admitting Provider This is a 74-year-old male who has significant past medical history of ischemic cardiomyopathy, CAD with history of CABG x1 and angioplasty, biventricular AICD in place, chronic HFrEF with diastolic dysfunction, history of aortic valve and mitral valve replacements, PAF anticoagulated on warfarin, HTN, HLD, OBED on CPAP, insulin-dependent T2DM, CKD stage IIIb4, depression, GERD who presents to ED secondary to shortness of breath x1 week. He elicits over the past week he has been exhibiting increasing shortness of breath with exertion and when he woke up this morning developed shortness of breath at rest. This prompted him to seek ER evaluation. He admits to not being compliant with 1800 mL fluid restriction but is unsure how much he has been drinking. He does not feel he has had a change in diet and denies any increase in salt intake. He has been compliant with his Lasix and last took 80 mg first thing this morning. When he arrived to ED he was noted to be 85% on room air requiring oxygen supplementation at 4 L to maintain good saturation. He does have history of decompensation of CHF in the past. He lives by himself and denies any recent illness. Denies any known Covid exposure. He denies any fever, chills, sweats, lightheadedness, chest pain, palpitations, hemoptysis, orthopnea, PND, abdominal pain, dysuria, increased urgency or frequency with urination, hematuria, melena or hematochezia. He does elicit to a dry cough that is worse with recumbency. He has been able to tolerate CPAP at bedtime without orthopnea. He does complain of occasional dull epigastric and right upper quadrant ache over the past week but currently this is absent. He denies any josh chest pain with exertion or at rest. His weight this morning was 263. He denies any lower extremity swelling except for his left foot. In ER patient remained hemodynamically stable. He was administered 80 mg of IV Lasix prior to my evaluation. He was noted to have a supratherapeutic INR at 6.6, respiratory alkalosis with a pH of 7.49 and PCO2 of 34. His BUN and his creatinine were stable at 24 and 1.81, potassium low at 3.3, troponin WNL, proBNP 21,156 which is a substantial increase from prior which was 1945. Chest x-ray consistent with pulmonary edema. Discharge Data Allergies Allergy/AdvReac Type Severity Reaction Status Date / Time No Known Allergies Allergy Unverified 02/12/20 18:24 Consultations 07/14/20 13:38 ED Decision to Admit Stat 07/14/20 13:44 Consult Cardiology Routine 07/17/20 09:09 Consult Pulmonology Routine 07/17/20 11:45 Consult Wellness Consultant Routine Ordered Studies 07/17/20 12:00 US renal/blad retro comp Urgent Hospital Course (1) Acute on chronic HFrEF (heart failure with reduced ejection fraction): (2) Hypoxia: (3) Supratherapeutic INR: (4) Diabetes mellitus, type 2: (5) CAD (coronary artery disease): (6) H/O mitral valve replacement: (7) PAF (paroxysmal atrial fibrillation): (8) CKD (chronic kidney disease) stage 4, GFR 15-29 ml/min: (9) OBED on CPAP: This is a 74-year-old male who has significant past medical history of ischemic cardiomyopathy, CAD with history of CABG x1 and angioplasty, biventricular AICD in place, chronic HFrEF with diastolic dysfunction, history of aortic valve and mitral valve replacements, PAF anticoagulated on warfarin, HTN, HLD, OBED on CPAP, insulin-dependent T2DM, CKD stage IIIb4, depression, GERD who presents to ED secondary to shortness of breath x1 week. S/P Acute Vent Dependent respiratory failure with hypoxia Acute on chronic systolic and diastolic CHF exacerbation CXR: Cardiomegaly and AICD with evidence of congestive failure. Asymmetric bilateral airspace likely represent pulmonary edema. Small effusions -ECHO: EF 25 to 30%, grade 2 diastolic dysfunction based on inferior and posterior segments are severely hypokinetic to akinetic. The apex is severely hypokinetic to akinetic. Otherwise moderate global hypokinesis. Appropriately functioning aortic and mitral valve bioprosthesis. Significant pulmonary hypertension is present. Device interrogation completed Continue spironolactone 25 mg daily Monitor Daily weight, I/Os Continue fluid restriction Monitor renal function/electrolytes IV Lasix 80 mg x 1 dose GMF On Rocephin, Doxycycline SNF when accepted Hypokalemia Replete electrolytes as needed Normal Mag levels Biventricular AICD/pacemaker Device interrogation done Supratherapeutic INR Secondary to Coumadin/Hepatic congestion No acute bleeding issues Coumadin held Chronic anemia secondary to renal disease Baseline hemoglobin ~10 Monitor CBC CKD stage IV Monitor renal function while on diuretics Avoid nephrotoxic agents as able Valvular heart disease S/P aortic, mitral valve replacement ventricular fibrillation S/P AICD Continue home medications Paroxysmal atrial fibrillation Coumadin on hold secondary to supratherapeutic INR Continue amiodarone, metoprolol CAD S/P CABG Continue Plavix, atorvastatin, metoprolol, Imdur IDDM 2 Last A1c 05/22/2020 6.9 Lantus/NovoLog per protocol Consult glycemic pharmacist in setting of high doses of NovoLog OBED On CPAP @ Home GERD Continue PPI Morbid obesity BMI 40 DVT Px: Therapeutic INR Coumadin held CODE STATUS Full code Disposition PT/OT labs Checked Feeling better each day, awaiting SNF bed, on med/surg, one dose of lasix today, bladder training and DC cordova later today ROS-No Headache, No Visual Changes, No Nausea, No Vomiting, No Fever, No Chills, No Neck Pain or Stiffness, No Chest Pain, No Palpitations, No SOB, No SIERRA, No Cough, No Sputum, No Wheezing, No Abdominal Pain, No Diarrhea, No Hematemesis, No Hemoptysis, No Unexpected Weight Loss, No Flank pain, No Melena, No Hematochezia, No Frequency, No Urgency, No Burning, No Hematuria, No Rashes, No Diaphoresis. Appetite is Normal Physical Exam Gen-AAO x 3, NAD, Afebrile, obese Head-NCAT, EOMI, PERRLA, Anicteric Sclera, No Posterior Pharyngeal Erythema Neck-Supple, No JVD, No Thyromegaly, No Masses, No LAD, No Bruits Lungs-Clear to Auscultation Bilaterally, + Rales, No Rhonchi, No Wheezing, No Crepitus Chest-No S4, +S1, +S2, No S3, No Murmurs, No Rubs, No Gallops, No Ectopy Abdomen-Soft, Bowel Sounds Present, obese, Non Tender, Non Distended, No Hepatomegaly, No Splenomegaly, No Palpable Masses, No Rebound, No Rigidity, No Guarding Musculoskeletal-Full Range of Motion Bilaterally, No CVAT Extremities-No Cyanosis, No Clubbing, No Edema Nuero-Cranial Nerves II-XII grossly intact, Motor WNL, DTRs WNL, Strength WNL, Non Focal Psych-Normal Mood Discharge Plan Discharge Items Reason For Visit: ACUTE DECOMPENSATED SYSTOLIC CHF Condition on Discharge: Fair Follow-up/Referrals: Glenn Payne PA-C [Primary Care Provider] - Medications and DC Order Prescriptions: No Action amiodarone 200 mg tablet 200 mg PO DAILY RF: 0 clopidogrel 75 mg tablet 75 mg PO QAM RF: 0 furosemide 80 mg tablet 80 mg PO QAM RF: 0 nitroglycerin 0.4 mg tablet, sublingual 0.4 mg sublingual DIRECTED PRN (Reason: Chest Pain) RF: 0 omeprazole 20 mg capsule,delayed release(DR/EC) 20 mg PO QAM PRN (Reason: Gi Upset) RF: 0 albuterol sulfate 90 mcg/actuation HFA aerosol inhaler 2 puff INHALATION QID PRN (Reason: Shortness Of Breath Or Wheezing) RF: 0 insulin aspart U-100 [Novolog Flexpen U-100 Insulin] 100 unit/mL (3 mL) insulin pen 0 unit subcut AC RF: 0 Tresiba FlexTouch U-200 200 unit/mL (3 mL) insulin pen 36 unit SUBCUT QAM RF: 0 ascorbic acid (vitamin C) [Vitamin C] 500 mg Tablet,Chewable 500 mg PO BID RF: 0 docusate sodium 100 mg Capsule 100 mg PO BID RF: 0 atorvastatin 80 mg tablet 80 mg PO QPM RF: 0 metoprolol succinate 100 mg tablet extended release 24 hr 100 mg PO DAILY RF: 0 cyanocobalamin (vitamin B-12) 1,000 mcg/mL Solution 1,000 mcg IM MO RF: 0 magnesium oxide 400 mg magnesium Tablet 400 mg PO DAILY RF: 0 isosorbide mononitrate 30 mg tablet extended release 24 hr 60 mg PO QAM 30 Days Qty: 60 RF: 0 duloxetine 20 mg capsule,delayed release(DR/EC) 20 mg PO QAM RF: 0 amoxicillin 500 mg Capsule 2,000 mg PO UD RF: 0 warfarin 2.5 mg Tablet 2.5 mg PO We@1600 RF: 0 warfarin 2.5 mg Tablet 1.25 mg PO SUMOTUTHFRSA@1600 RF: 0 furosemide 80 mg Tablet 40 mg PO DAILY@1300 RF: 0 cholecalciferol (vitamin D3) [Vitamin D3] 125 mcg (5,000 unit) Tablet 125 mcg PO Q2D RF: 0 Krames/Other Patient Handouts: Managing Type 2 Diabetes, Managing Diabetes: The A1C Test Admission Data Admit Date/Time: 07/14/20 13:44 Attending Provider: Corwin Paredes Admit Provider: Delta Benedict Primary Care Provider: Glenn Payne Other Providers: Owen Kelley ; [place] ; [facility] ; Delta Benedict ; Martell Guzmán
--- NOTE | 2020-07-23 10:31 | Pharmacy Report ---
Pharmacy Glycemic Short Note 2 - Date of Service July 23, 2020 - Glycemic Short BSG Results (Last 24 hours): 07/22/20 07/22/20 07/22/20 11:46 16:58 20:28 Glucose POC Glucose 123 H 129 H 104 H 07/23/20 07/23/20 05:28 07:47 Glucose 74 POC Glucose 108 H OUTPATIENT ANTIDIABETIC REGIMEN: * Tresiba 36 units SQ AM * NovoLog with meals: 28 units with breakfast + 50 units with lunch + 56 units with dinner + 7 units at HS * Total daily dose = 177 units/day * A1c = 6.8% on 07/16/20 ASSESSMENT: 07/23: * BSGs well controlled over last 24 hrs * 44 units SQ administered over last 24 hrs while tolerating diet * Fasting BSG 74-108 this AM w/ 20 units basal on board - will titrate down Lantus and follow fasting trend * Post-prandial BSGs well controlled w/ current Novolog CF/CR - no change 07/22: * Pt has received 39 units of insulin over the past 24hrs * 20 units of basal with Lantus * 19 units of bolus with NovoLog * BSGs 109-159 mg/dl * No changes needed at this time 07/20: * Pt has received 55 units of insulin over the past 24hrs * 28 units of basal with Lantus * 27 units of bolus with NovoLog * BSGs [phone] mg/dl * Lantus is currently ordered as BID dosing but patient takes Lantus daily in AM as an outpatient. Lantus when changed to BID when patient intubated. Will work dosing back to Q24hrs in the AM * Post-prandial BSGs elevated yesterday - will tighten CF/CR. PLAN FOR INPATIENT GLYCEMIC CONTROL: * Basal insulin * Lantus 15 units SQ QAM * Bolus insulin: * NovoLog per scale ACHS or Q6hrs while NPO * Goal Range: Low 110 mg/dL - High 140 mg/dL * Correction Factor: 15 mg/dL/unit * Nutritional / Prandial insulin per carb ratio of 1 unit per 4 grams CHO consumed
--- NOTE | 2020-07-23 10:45 | Cardiology Progress Note ---
Date of Service July 23, 2020 Assessment & Plan (1) Acute on chronic HFrEF (heart failure with reduced ejection fraction): Agree with transfer to rehab on [employer] furosemide 80 mg daily in am, 40 mg daily in pm. Hold coumadin today for INR of 4.8 Admission and Anticipated Discharge Date Admission Date: July 14, 2020 Subjective Pt seen in cardiology follow up. Well known to the undersigned. He was not utilizing supplemental O2 at the time of my evaluation. Notes generalized weakness with PT / OT on Thursday. Review of Systems Review of Systems: All systems reviewed & are unremarkable except as noted in HPI & below Physical Exam Physical Exam: Temp Pulse Resp BP Pulse Ox 36.8 C 64 18 108/62 98 07/22/20 22:10 07/22/20 22:10 07/23/20 06:57 07/23/20 06:57 07/23/20 06:57 Constitutional: WD/WN, vitals as above Respiratory: normal respiratory effort, lungs clear to auscultation Cardiovascular: RRR, no murmur, no edema Chest (Breasts): Additional Comments: left infraclavicular device site, clean , dry and intact. Gastrointestinal (Abdomen): normal bowel sounds, soft, nontender, no hepatosplenomegaly Neurologic: PERRL, EOMI, accommodation nl, no face palsy, no dysarthria Results & Data ([facility]) Vital Signs (Past 12 Hours) Vital Signs Resp BP Pulse Ox 07/23/20 06:57 18 108/62 98 Laboratory Results Cardiac Enzymes 07/23/20 Range/Units 05:28 AST 26 (15-37) U/L Coagulation 07/23/20 Range/Units 05:28 PT 43.0 H (9.0-12.0) Seconds CBC 07/23/20 Range/Units 05:28 WBC 8.77 (4.8-10.8) K/uL RBC 3.02 L (4.7-6.1) M/uL Hgb 9.2 L (14.0-18.0) g/dL Hct 28.5 L (42-52) % Plt Count 295 (130-400) K/uL Comprehensive Metabolic Panel 07/23/20 Range/Units 05:28 Sodium 138 (136-145) mmol/L Potassium 4.8 (3.5-5.1) mmol/L Chloride 106 (98-107) mmol/L Carbon Dioxide 27 (21-32) mmol/L BUN 47 H (7-18) mg/dl Creatinine 1.92 H (0.6-1.4) mg/dl Glucose 74 (70-99) mg/dl Calcium 8.7 (8.5-10.1) mg/dl AST 26 (15-37) U/L ALT 44 (12-78) U/L Alkaline Phosphatase 85 (45-117) U/L Total Protein 6.2 L (6.4-8.2) gm/dl Albumin 2.4 L (3.4-5.0) gm/dl Intake and Output 07/22/20 07/23/20 07/23/20 22:59 06:59 14:59 Intake Total 300 / 1290 110 / 1290 70 / 70 Output Total 450 / 675 225 / 675 100 / 100 Balance -150 / 615 -115 / 615 -30 / -30 Intake: IV 110 / 290 70 / 70 Doxycycline Hyclate 100 mg In 110 / 220 Dextrose 5% 100 ml @ 50 mls/hr IV Q12H [facility] Rx#:[id number] cefTRIAXone SODIUM 2,000 mg In 70 / 70 Dextrose 5% 50 ml @ 140 mls/hr IV DAILY [facility] Rx#:[id number] Oral 300 / 1000 Output: Urine Amount (Catheter) 450 / 675 225 / 675 100 / 100 Matthews/Indwelling 450 / 675 225 / 675 100 / 100 Other: Other Intake Source sips Diagnostic Findings Echo this admission: regional wall motion abnormalities compatible with known ischemic CM , LVEF 20-30%, aortic and mitral bioprosthetic valve function normal.
[2020-07-23] MEDS: ATORVASTATIN 40 MG TAB PO SCH (20:57)
[2020-07-24 07:03] LABS: Hematocrit (blood only) 30.2 % (42-52); Hemoglobin 9.5 g/dL (14.0-18.0); Mean Corpuscular Hemoglobin 29.9 pg (25-34); Mean Corpuscular Hgb Conc 31.5 g/dL (32-36); Mean Platelet Volume 11.8 fL (7.4-10.4); Platelet Count 333 K/uL (130-400); RDW Coefficient of Variation 15.3 % (11.5-14.5); RDW Standard Deviation 51.1 fL (36.4-46.3); Red Blood Count 3.18 M/uL (4.7-6.1); White Blood Count 9.02 K/uL (4.8-10.8)
[2020-07-24 07:29] LABS: INR 3.9 (0.9-1.1); Prothrombin Time 35.7 Seconds (9.0-12.0)
[2020-07-24 07:33] LABS: BUN Creatinine Ratio 23.1 (10-20); Creatinine Clr Calc Pharmacy 40.8 ml/min; Potassium 5.3 mmol/L (3.5-5.1)
[2020-07-24] MEDS: ASCORBIC ACID 500 MG TAB PO SCH ×2 (08:26→21:16)
[2020-07-24] MEDS: CLOPIDOGREL BISULFATE 75 MG TAB PO SCH (08:27)
[2020-07-24] MEDS: METOPROLOL SUCC 50MG EXT REL TAB PO SCH (08:27)
[2020-07-24] MEDS: MAGNESIUM OXIDE 400 MG TAB PO SCH (08:27)
[2020-07-24] MEDS: ISOSORBIDE MONO EXTENDED REL 60 MG TABCR PO SCH (08:27)
[2020-07-24] MEDS: SPIRONOLACTONE 25 MG TAB PO SCH (08:27)
[2020-07-24] MEDS: DULoxetine HCL 20 MG CAP PO SCH (08:27)
[2020-07-24] MEDS: FAMOTIDINE 20 MG in SYRINGE 3 ML IV SCH (08:39)
[2020-07-24] MEDS: cefTRIAXone SODIUM 2,000 MG in DEXTROSE 5% 50 ML IV SCH (08:39)
[2020-07-24] MEDS: DOCUSATE SODIUM 100 MG CAP PO SCH ×2 (08:39→21:16)
--- NOTE | 2020-07-24 09:00 | Pharmacy Report ---
Pharmacy Glycemic Short Note 2 - Date of Service July 24, 2020 - Glycemic Short BSG Results (Last 24 hours): 07/23/20 07/23/20 07/23/20 12:12 15:19 17:29 Glucose POC Glucose 127 H 75 141 H 07/23/20 07/24/20 07/24/20 20:35 06:35 08:17 Glucose 95 POC Glucose 171 H 121 H OUTPATIENT ANTIDIABETIC REGIMEN: * Tresiba 36 units SQ AM * NovoLog with meals: 28 units with breakfast + 50 units with lunch + 56 units with dinner + 7 units at HS * Total daily dose = 177 units/day * A1c = 6.8% on 07/16/20 ASSESSMENT: 07/24: * Pt has received 45 units of insulin over the past 24hrs * 15 units of basal with Lantus * 30 units of bolus with NovoLog * BSGs [phone]/121 mg/dl * AM fasting is slightly below goal range at 95 mg/dl - will decrease basal insulin slightly * Post-prandial BSGs are in goal range- no changes needed to CF/CR. * Regimen is weighted towards prandial insulin but this is acceptable; do not want to increase basal insulin to even out regimen because it would be covering CHO putting pt at risk for hypo when PO intake decreases. 07/23: * BSGs well controlled over last 24 hrs * 44 units SQ administered over last 24 hrs while tolerating diet * Fasting BSG 74-108 this AM w/ 20 units basal on board - will titrate down Lantus and follow fasting trend * Post-prandial BSGs well controlled w/ current Novolog CF/CR - no change 07/22: * Pt has received 39 units of insulin over the past 24hrs * 20 units of basal with Lantus * 19 units of bolus with NovoLog * BSGs 109-159 mg/dl * No changes needed at this time 07/20: * Pt has received 55 units of insulin over the past 24hrs * 28 units of basal with Lantus * 27 units of bolus with NovoLog * BSGs [id number] mg/dl * Lantus is currently ordered as BID dosing but patient takes Lantus daily in AM as an outpatient. Lantus when changed to BID when patient intubated. Will work dosing back to Q24hrs in the AM * Post-prandial BSGs elevated yesterday - will tighten CF/CR. PLAN FOR INPATIENT GLYCEMIC CONTROL: * Basal insulin: * Decrease Lantus from 15 to 12 units SQ QAM * Bolus insulin: no change * NovoLog per scale ACHS or Q6hrs while NPO * Goal Range: Low 110 mg/dL - High 140 mg/dL * Correction Factor: 15 mg/dL/unit * Nutritional / Prandial insulin per carb ratio of 1 unit per 4 grams CHO consumed
[2020-07-24] MEDS: INSULIN GLARGINE SOLOSTAR 100 UNITS/ML 3 ML PEN SC SCH (09:27)
[2020-07-24] MEDS: INSULIN ASPART 100 UNITS/ML 3 ML PEN SC SCH ×4 (09:29→21:19)
[2020-07-24] MEDS ORDERED: FUROSEMIDE 80 MG in SYRINGE 0 ML IV SCH (09:30)
--- NOTE | 2020-07-24 09:37 | Cardiology Progress Note ---
Date of Service July 24, 2020 Assessment & Plan (1) Acute on chronic HFrEF (heart failure with reduced ejection fraction): Hold spironolactone and potassium chloride for potassium level of 5.4 today. Consider transition to oral antibiotics and oral famotidine if ongoing treatment indicated. DC on furosemide 80 mg PO q am, 40 mg PO q pm. Continue chronic clopidogrel. INR remains supratherapeutic , 3.9 today down from 4.8 yesterday. Admission and Anticipated Discharge Date Admission Date: July 14, 2020 Subjective Patient without acute complaints. Eating breakfast. He is not on telemetry. Review of Systems Review of Systems: All systems reviewed & are unremarkable except as noted in HPI & below Physical Exam Physical Exam: Temp Pulse Resp BP Pulse Ox 36.5 C 64 16 105/66 97 07/24/20 07:38 07/24/20 07:38 07/24/20 07:38 07/24/20 07:38 07/24/20 07:38 Constitutional: WD/WN, vitals as above Cardiovascular: RRR, no murmur, no edema Neurologic: PERRL, EOMI, accommodation nl, no face palsy, no dysarthria Results & Data ([facility]) Vital Signs (Past 12 Hours) Vital Signs Temp Pulse Pulse Resp BP BP Pulse Ox 07/24/20 07:38 36.5 C 64 16 105/66 97 07/23/20 23:04 36.1 C L 66 18 103/69 94 07/23/20 22:22 65 19 98 Laboratory Results Coagulation 07/24/20 Range/Units 06:35 PT 35.7 H (9.0-12.0) Seconds CBC 07/24/20 Range/Units 06:35 WBC 9.02 (4.8-10.8) K/uL RBC 3.18 L (4.7-6.1) M/uL Hgb 9.5 L (14.0-18.0) g/dL Hct 30.2 L (42-52) % Plt Count 333 (130-400) K/uL Comprehensive Metabolic Panel 07/24/20 Range/Units 06:35 Sodium 138 (136-145) mmol/L Potassium 5.3 H (3.5-5.1) mmol/L Chloride 106 (98-107) mmol/L Carbon Dioxide 25 (21-32) mmol/L BUN 46 H (7-18) mg/dl Creatinine 2.01 H (0.6-1.4) mg/dl Glucose 95 (70-99) mg/dl Calcium 9.0 (8.5-10.1) mg/dl Intake and Output 07/23/20 07/24/20 07/24/20 22:59 06:59 14:59 Intake Total 375 / 1015 460 / 1015 70 / 70 Output Total 150 / 525 275 / 525 Balance 225 / 490 185 / 490 70 / 70 Intake: IV 110 / 290 70 / 70 Doxycycline Hyclate 100 mg In 110 / 220 Dextrose 5% 100 ml @ 50 mls/hr IV Q12H [facility] Rx#:[id number] cefTRIAXone SODIUM 2,000 mg In 70 / 70 Dextrose 5% 50 ml @ 140 mls/hr IV DAILY [facility] Rx#:[id number] Oral 375 / 725 350 / 725 Output: Urine 150 / 425 275 / 425 Other: # Unmeasured Voids 1 Weight 117.9 kg
[2020-07-24] MEDS: POTASSIUM CHLORIDE 10 MEQ TABCR PO SCH (09:42)
[2020-07-24] MEDS: DOXYCYCLINE HYCLATE 100 MG in DEXTROSE 5% 100 ML IV SCH (10:46)
--- NOTE | 2020-07-24 11:35 | Discharge Summary ---
Date of Service July 24, 2020 Admission HPI Per Admitting Provider 74-year-old male who has significant past medical history of ischemic cardiomyopathy, CAD with history of CABG x1 and angioplasty, biventricular AICD in place, chronic HFrEF with diastolic dysfunction, history of aortic valve and mitral valve replacements, PAF anticoagulated on warfarin, HTN, HLD, OBED on CPAP, insulin-dependent T2DM, CKD stage IIIb4, depression, GERD who presents to ED secondary to shortness of breath x1 week. He elicits over the past week he has been exhibiting increasing shortness of breath with exertion and when he woke up this morning developed shortness of breath at rest. This prompted him to seek ER evaluation. He admits to not being compliant with 1800 mL fluid restriction but is unsure how much he has been drinking. He does not feel he has had a change in diet and denies any increase in salt intake. He has been compliant with his Lasix and last took 80 mg first thing this morning. When he arrived to ED he was noted to be 85% on room air requiring oxygen supplementation at 4 L to maintain good saturation. He does have history of decompensation of CHF in the past. He lives by himself and denies any recent illness. Denies any known Covid exposure. He denies any fever, chills, sweats, lightheadedness, chest pain, palpitations, hemoptysis, orthopnea, PND, abdominal pain, dysuria, increased urgency or frequency with urination, hematuria, melena or hematochezia. He does elicit to a dry cough that is worse with recumbency. He has been able to tolerate CPAP at bedtime without orthopnea. He does complain of occasional dull epigastric and right upper quadrant ache over the past week but currently this is absent. He denies any josh chest pain with exertion or at rest. His weight this morning was 263. He denies any lower extremity swelling except for his left foot. In ER patient remained hemodynamically stable. He was administered 80 mg of IV Lasix prior to my evaluation. He was noted to have a supratherapeutic INR at 6.6, respiratory alkalosis with a pH of 7.49 and PCO2 of 34. His BUN and his creatinine were stable at 24 and 1.81, potassium low at 3.3, troponin WNL, proBNP 21,156 which is a substantial increase from prior which was 1945. Chest x-ray consistent with pulmonary edema. Admission Exam Per Admitting Provider Constitutional: WD/WN, appears older than stated age, vitals as above, NAD, sitting up in bed, pleasant, conversing easily Head: Normocephalic, Atraumatic Eyes: PERRL, conjunctivae normal, anicteric sclerae ENMT: external ear and nose normal, oropharynx normal Neck: trachea midline, no thyromegaly normal visual inspection Respiratory:On 4 L of O2, normal respiratory effort, lungs clear to auscultation, bibasilar rales noted, no wheeze or rhonchi. Normal insp/exp effort, no accessory muscle use Cardiovascular: RRR, aortic valve click noted, pacer site noted, trace lower extremity pretibial edema Vessels: no JVD or carotid bruit Chest: normal inspection of chest Abdomen: normal bowel sounds, soft, nontender, no hepatosplenomegaly Musculoskeletal: no cyanosis or clubbing, extremities motor strength 5/5 Skin: no rashes, warm and dry normal turgor Neurologic: PERRL, EOMI, accommodation nl, no face palsy, no dysarthria CN's II-XI intact bilaterally and moves all extremities Psychiatric: A+Ox3, euthymic affect Lymphatic: no cervical or axillary lymphadenopathy : deferred Principal Diagnosis (1) Acute on chronic HFrEF (heart failure with reduced ejection fraction): (2) Hypoxia: (3) Supratherapeutic INR: (4) Diabetes mellitus, type 2: (5) CAD (coronary artery disease): (6) H/O mitral valve replacement: (7) PAF (paroxysmal atrial fibrillation): (8) CKD (chronic kidney disease) stage 4, GFR 15-29 ml/min: (9) OBED on CPAP: Discharge Exam see below Discharge Data Allergies Allergy/AdvReac Type Severity Reaction Status Date / Time No Known Allergies Allergy Unverified 02/12/20 18:24 Consultations 07/14/20 13:38 ED Decision to Admit Stat 07/14/20 13:44 Consult Cardiology Routine 07/17/20 09:09 Consult Pulmonology Routine 07/17/20 11:45 Consult [employer] Services In[employer] Routine Ordered Studies 07/17/20 12:00 US renal/blad retro comp Urgent Current Diagnoses Type 2 diabetes mellitus without complications (07/14/20) Hyperlipidemia, unspecified (07/14/20) Obstructive sleep apnea (adult) (pediatric) (07/14/20) Essential (primary) hypertension (07/14/20) Atherosclerotic heart disease of [place] coronary artery without angina pectoris (07/14/20) Paroxysmal atrial fibrillation (07/14/20) Acute on chronic systolic (congestive) heart failure (07/14/20) Heart failure, unspecified (07/14/20) Acute respiratory failure with hypoxia (07/14/20) Chronic kidney disease, stage 4 (severe) (07/14/20) Hypoxemia (07/14/20) Abnormal coagulation profile (07/14/20) Other mechanical complication of other cardiac electronic device, initial encounter (07/14/20) Encounter for checking and testing of cardiac pacemaker pulse generator [battery] (07/14/20) Personal history of other diseases of the circulatory system (07/14/20) Presence of prosthetic heart valve (07/14/20) Dependence on other enabling machines and devices (07/14/20) Allergies No Known Allergies Allergy (Unverified 02/12/20 18:24) Height/Weight/Isolation Height 5 ft 8 in Weight 117.9 kg Chemistry 07/23/20 07/24/20 05:28 06:35 Sodium 138 138 Potassium 4.8 5.3 H Chloride 106 106 Carbon Dioxide 27 25 Anion Gap 5.0 7.0 BUN 47 H 46 H Creatinine 1.92 H 2.01 H Glucose 74 95 Microbiology 07/17/20 12:21 Blood Aerobic Blood Culture - Final No growth in Aerobic bottle after 5 days. 07/17/20 12:21 Blood Anaerobic Blood Culture - Final No growth in Anaerobic bottle after 5 days. 07/17/20 12:33 Blood Aerobic Blood Culture - Final No growth in Aerobic bottle after 5 days. 07/17/20 12:33 Blood Anaerobic Blood Culture - Final Hospital Course (1) Acute on chronic HFrEF (heart failure with reduced ejection fraction): (2) Hypoxia: (3) Supratherapeutic INR: (4) Diabetes mellitus, type 2: (5) CAD (coronary artery disease): (6) H/O mitral valve replacement: (7) PAF (paroxysmal atrial fibrillation): (8) CKD (chronic kidney disease) stage 4, GFR 15-29 ml/min: (9) OBED on CPAP: This is a 74-year-old male who has significant past medical history of ischemic cardiomyopathy, CAD with history of CABG x1 and angioplasty, biventricular AICD in place, chronic HFrEF with diastolic dysfunction, history of aortic valve and mitral valve replacements, PAF anticoagulated on warfarin, HTN, HLD, OBED on CPAP, insulin-dependent T2DM, CKD stage IIIb4, depression, GERD who presents to ED secondary to shortness of breath x1 week. S/P Acute Vent Dependent respiratory failure with hypoxia Acute on chronic systolic and diastolic CHF exacerbation CXR: Cardiomegaly and AICD with evidence of congestive failure. Asymmetric bilateral airspace likely represent pulmonary edema. Small effusions -ECHO: EF 25 to 30%, grade 2 diastolic dysfunction based on inferior and posterior segments are severely hypokinetic to akinetic. The apex is severely hypokinetic to akinetic. Otherwise moderate global hypokinesis. Appropriately functioning aortic and mitral valve bioprosthesis. Significant pulmonary hypertension is present. Device interrogation completed Continue spironolactone 25 mg daily Monitor Daily weight, I/Os Continue fluid restriction Monitor renal function/electrolytes Resume PO Lasix on DC DC abx SNF when accepted Hypokalemia Replete electrolytes as needed Normal Mag levels Biventricular AICD/pacemaker Device interrogation done Supratherapeutic INR Secondary to Coumadin/Hepatic congestion No acute bleeding issues Coumadin held Chronic anemia secondary to renal disease Baseline hemoglobin ~10 Monitor CBC CKD stage IV Monitor renal function while on diuretics Avoid nephrotoxic agents as able Valvular heart disease S/P aortic, mitral valve replacement ventricular fibrillation S/P AICD Continue home medications Paroxysmal atrial fibrillation Coumadin on hold secondary to supratherapeutic INR Continue amiodarone, metoprolol CAD S/P CABG Continue Plavix, atorvastatin, metoprolol, Imdur IDDM 2 Last A1c 05/22/2020 6.9 Lantus/NovoLog per protocol Consult glycemic pharmacist in setting of high doses of NovoLog OBED On CPAP @ Home GERD Continue PPI Morbid obesity BMI 40 DVT Px: Therapeutic INR Coumadin held CODE STATUS Full code Disposition PT/OT labs Checked Feeling better each day, SNF today, [facility] out ROS-No Headache, No Visual Changes, No Nausea, No Vomiting, No Fever, No Chills, No Neck Pain or Stiffness, No Chest Pain, No Palpitations, No SOB, No SIERRA, No Cough, No Sputum, No Wheezing, No Abdominal Pain, No Diarrhea, No Hematemesis, No Hemoptysis, No Unexpected Weight Loss, No Flank pain, No Melena, No Hematochezia, No Frequency, No Urgency, No Burning, No Hematuria, No Rashes, No Diaphoresis. Appetite is Normal Physical Exam Gen-AAO x 3, NAD, Afebrile, obese Head-NCAT, EOMI, PERRLA, Anicteric Sclera, No Posterior Pharyngeal Erythema Neck-Supple, No JVD, No Thyromegaly, No Masses, No LAD, No Bruits Lungs-Clear to Auscultation Bilaterally, Rales improved very faint, clear p cough, No Rhonchi, No Wheezing, No Crepitus Chest-No S4, +S1, +S2, No S3, No Murmurs, No Rubs, No Gallops, No Ectopy Abdomen-Soft, Bowel Sounds Present, obese, Non Tender, Non Distended, No Hepatomegaly, No Splenomegaly, No Palpable Masses, No Rebound, No Rigidity, No Guarding Musculoskeletal-Full Range of Motion Bilaterally, No CVAT Extremities-No Cyanosis, No Clubbing, No Edema Nuero-Cranial Nerves II-XII grossly intact, Motor WNL, DTRs WNL, Strength WNL, Non Focal Psych-Normal Mood Total Time Total Time Spent Total Time Spent (In Minutes): 45 min Total Time Includes: Examination of the Patient, Discharge Planning, Medication Reconciliation and Communication With Other Providers Discharge Plan Discharge Items Patient Disposition: Transfer Detention Fac Reason For Visit: ACUTE DECOMPENSATED SYSTOLIC CHF Discharge Diagnosis: (1) Acute on chronic HFrEF (heart failure with reduced ejection fraction): (2) Hypoxia: (3) Supratherapeutic INR: (4) Diabetes mellitus, type 2: (5) CAD (coronary artery disease): (6) H/O mitral valve replacement: (7) PAF (paroxysmal atrial fibrillation): (8) CKD (chronic kidney disease) stage 4, GFR 15-29 ml/min: (9) OBED on CPAP: Condition on Discharge: Fair Health Concerns: Renal function and INR Activity: Per Instructions section Activity Comment: Per SNF PT/OT evals Lifting: None Bathing: No limitations Exercise/Sports: Gradually increase as tolerated Weightbearing: Full weightbearing Non-emergency contact: Primary Care Provider and Director Of Rehabilitation Call non-emergency contact if: you have any medication questions Follow-up/Referrals: Martell Guzmán DO [Physician] - (4 weeks) Fabricio Aj [facility] [Non-Staff] - Glenn Payne PA-C [Primary Care Provider] - Diet: Carb Consistent or DM2 Fluids: 1500ml (6 cups) Addtl Attending Provider Instructions: Check PT/INR daily, Dose Warfarin per INR see home med doses Pending Studies at Discharge: No Stand-Alone Forms: My [facility] Skilled Items Patient informed of condition?: Yes DNR: No Discharge Level of Care: Skilled Communicable Disease: No Discharge Prognosis: Improving Lines: None Urinary Catheter: No Medications and DC Order Prescriptions: New Lantus Solostar U-100 Insulin 100 unit/mL (3 mL) Insulin Pen 12 unit SC DAILY Qty: 15 RF: 0 Continued clopidogrel 75 mg tablet 75 mg PO QAM RF: 0 furosemide 80 mg tablet 80 mg PO QAM RF: 0 nitroglycerin 0.4 mg tablet, sublingual 0.4 mg sublingual DIRECTED PRN (Reason: Chest Pain) RF: 0 omeprazole 20 mg capsule,delayed release(DR/EC) 20 mg PO QAM PRN (Reason: Gi Upset) RF: 0 albuterol sulfate 90 mcg/actuation HFA aerosol inhaler 2 puff INHALATION QID PRN (Reason: Shortness Of Breath Or Wheezing) RF: 0 insulin aspart U-100 [Novolog Flexpen U-100 Insulin] 100 unit/mL (3 mL) insulin pen 0 unit subcut AC RF: 0 ascorbic acid (vitamin C) [Vitamin C] 500 mg Tablet,Chewable 500 mg PO BID RF: 0 docusate sodium 100 mg Capsule 100 mg PO BID RF: 0 atorvastatin 80 mg tablet 80 mg PO QPM RF: 0 metoprolol succinate 100 mg tablet extended release 24 hr 100 mg PO DAILY RF: 0 cyanocobalamin (vitamin B-12) 1,000 mcg/mL Solution 1,000 mcg IM MO RF: 0 magnesium oxide 400 mg magnesium Tablet 400 mg PO DAILY RF: 0 isosorbide mononitrate 30 mg tablet extended release 24 hr 60 mg PO QAM 30 Days Qty: 60 RF: 0 duloxetine 20 mg capsule,delayed release(DR/EC) 20 mg PO QAM RF: 0 furosemide 80 mg Tablet 40 mg PO DAILY@1300 RF: 0 cholecalciferol (vitamin D3) [Vitamin D3] 125 mcg (5,000 unit) Tablet 125 mcg PO Q2D RF: 0 Discontinued amiodarone 200 mg tablet 200 mg PO DAILY RF: 0 Tresiba FlexTouch U-200 200 unit/mL (3 mL) insulin pen 36 unit SUBCUT QAM RF: 0 amoxicillin 500 mg Capsule 2,000 mg PO UD RF: 0 warfarin 2.5 mg Tablet 2.5 mg PO We@1600 RF: 0 warfarin 2.5 mg Tablet 1.25 mg PO SUMOTUTHFRSA@1600 RF: 0 Discharge Orders: Discharge Order (Routine); Ordered 07/24/20 Ordered By: Corwin Rosenthal/Other Patient Handouts: Managing Type 2 Diabetes, Managing Diabetes: The A1C Test Admission Data Admit Date/Time: 07/14/20 13:44 Attending Provider: Corwin Paredes Admit Provider: Delta Benedict Primary Care Provider: Glenn Payne Other Providers: Owen Kelley ; [place] ; Fabricio Aj at [facility] ; Delta Benedict ; Martell Guzmán
[2020-07-24] MEDS: ATORVASTATIN 40 MG TAB PO SCH (21:16)
[2020-07-25 07:08] LABS: BUN Creatinine Ratio 22.4 (10-20); Calcium 8.8 mg/dl (8.5-10.1); Est GFR (African American) 36.2; Est GFR (Non-African American) 31.2
--- NOTE | 2020-07-25 08:42 | Pharmacy Report ---
Pharmacy Glycemic Short Note 2 - Date of Service July 25, 2020 - Glycemic Short BSG Results (Last 24 hours): 07/24/20 07/24/20 07/24/20 12:19 17:41 21:00 Glucose POC Glucose 171 H 143 H 123 H 07/25/20 07/25/20 05:50 08:20 Glucose 86 POC Glucose 112 H OUTPATIENT ANTIDIABETIC REGIMEN: * Tresiba 36 units SQ AM * NovoLog with meals: 28 units with breakfast + 50 units with lunch + 56 units with dinner + 7 units at HS * Total daily dose = 177 units/day * A1c = 6.8% on 07/16/20 ASSESSMENT: 07/24: * Pt has received 45 units of insulin over the past 24hrs * 15 units of basal with Lantus * 30 units of bolus with NovoLog * BSGs 582-937-128-171-95/121 mg/dl * AM fasting is slightly below goal range at 95 mg/dl - will decrease basal insulin slightly * Post-prandial BSGs are in goal range- no changes needed to CF/CR. * Regimen is weighted towards prandial insulin but this is acceptable; do not want to increase basal insulin to even out regimen because it would be covering CHO putting pt at risk for hypo when PO intake decreases. 07/25: * BSGs again well controlled with current insulin orders * 37 units SQ given over last 24 hrs while tolerating a diet * Fasting BSG 86-112 w/ 12 units Lantus on board - no change * Post-prandial BSGs less than 180 with current Novolog CF/CR - no change 07/23: * BSGs well controlled over last 24 hrs * 44 units SQ administered over last 24 hrs while tolerating diet * Fasting BSG 74-108 this AM w/ 20 units basal on board - will titrate down Lantus and follow fasting trend * Post-prandial BSGs well controlled w/ current Novolog CF/CR - no change 07/22: * Pt has received 39 units of insulin over the past 24hrs * 20 units of basal with Lantus * 19 units of bolus with NovoLog * BSGs 109-159 mg/dl * No changes needed at this time 07/20: * Pt has received 55 units of insulin over the past 24hrs * 28 units of basal with Lantus * 27 units of bolus with NovoLog * BSGs [id number] mg/dl * Lantus is currently ordered as BID dosing but patient takes Lantus daily in AM as an outpatient. Lantus when changed to BID when patient intubated. Will work dosing back to Q24hrs in the AM * Post-prandial BSGs elevated yesterday - will tighten CF/CR. PLAN FOR INPATIENT GLYCEMIC CONTROL: * Basal insulin: no change * Lantus 12 units SQ QAM * Bolus insulin: no change * NovoLog per scale ACHS or Q6hrs while NPO * Goal Range: Low 110 mg/dL - High 140 mg/dL * Correction Factor: 15 mg/dL/unit * Nutritional / Prandial insulin per carb ratio of 1 unit per 4 grams CHO consumed
[2020-07-25] MEDS: INSULIN ASPART 100 UNITS/ML 3 ML PEN SC SCH (09:12)
[2020-07-25] MEDS: INSULIN GLARGINE SOLOSTAR 100 UNITS/ML 3 ML PEN SC SCH (09:13)
[2020-07-25] MEDS: DULoxetine HCL 20 MG CAP PO SCH (09:15)
[2020-07-25] MEDS: MAGNESIUM OXIDE 400 MG TAB PO SCH (09:16)
[2020-07-25] MEDS: ASCORBIC ACID 500 MG TAB PO SCH (09:16)
[2020-07-25] MEDS: CHOLECALCIFEROL 1,000 UNITS 25 MCG TAB PO SCH (09:16)
[2020-07-25] MEDS: CLOPIDOGREL BISULFATE 75 MG TAB PO SCH (09:16)
[2020-07-25] MEDS: ISOSORBIDE MONO EXTENDED REL 60 MG TABCR PO SCH (09:19)
[2020-07-25] MEDS: METOPROLOL SUCC 50MG EXT REL TAB PO SCH (09:19)
[2020-07-25] MEDS: FAMOTIDINE 20 MG in SYRINGE 3 ML IV SCH (09:22)
[2020-07-25] MEDS: DOCUSATE SODIUM 100 MG CAP PO SCH (09:22)
--- NOTE | 2020-07-25 11:08 | Cardiology Progress Note ---
Date of Service July 25, 2020 Assessment & Plan (1) Acute on chronic HFrEF (heart failure with reduced ejection fraction): INR 3.9 yesterday, repeat today. Potassium down to 4.7, from 5.3. Spironolactone and KCL on hold again today. Creatinine of 2 mg/dl is recent baseline. Antibiotics have been stopped. Stop oral pepcid. At time of DC resume [employer] furosemide 80 mg daily in am, 40 mg q pm. Admission and Anticipated Discharge Date Admission Date: July 14, 2020 Subjective Pt seen in cardiology follow up. He is sitting in bedside chair. PT provider reports pt walked more today. Physical Exam Physical Exam: Temp Pulse Resp BP Pulse Ox 36 C L 63 20 111/71 96 07/25/20 07:03 07/25/20 09:18 07/25/20 07:03 07/25/20 09:18 07/25/20 07:03 Constitutional: WD/WN, vitals as above Respiratory: normal respiratory effort, lungs clear to auscultation Cardiovascular: RRR, no murmur, no edema Neurologic: PERRL, EOMI, accommodation nl, no face palsy, no dysarthria Results & Data ([facility]) Vital Signs (Past 12 Hours) Vital Signs Temp Pulse Resp BP Pulse Ox 07/25/20 09:18 63 111/71 07/25/20 07:03 36 C L 62 20 98/61 L 96 07/24/20 23:09 36.4 C L 62 18 113/71 92
--- NOTE | 2020-07-25 12:36 | Discharge Summary ---
Date of Service July 25, 2020 Admission HPI Per Admitting Provider 74-year-old male who has significant past medical history of ischemic cardiomyopathy, CAD with history of CABG x1 and angioplasty, biventricular AICD in place, chronic HFrEF with diastolic dysfunction, history of aortic valve and mitral valve replacements, PAF anticoagulated on warfarin, HTN, HLD, OBED on CPAP, insulin-dependent T2DM, CKD stage IIIb4, depression, GERD who presents to ED secondary to shortness of breath x1 week. He elicits over the past week he has been exhibiting increasing shortness of breath with exertion and when he woke up this morning developed shortness of breath at rest. This prompted him to seek ER evaluation. He admits to not being compliant with 1800 mL fluid restriction but is unsure how much he has been drinking. He does not feel he has had a change in diet and denies any increase in salt intake. He has been compliant with his Lasix and last took 80 mg first thing this morning. When he arrived to ED he was noted to be 85% on room air requiring oxygen supplementation at 4 L to maintain good saturation. He does have history of decompensation of CHF in the past. He lives by himself and denies any recent illness. Denies any known Covid exposure. He denies any fever, chills, sweats, lightheadedness, chest pain, palpitations, hemoptysis, orthopnea, PND, abdominal pain, dysuria, increased urgency or frequency with urination, hematuria, melena or hematochezia. He does elicit to a dry cough that is worse with recumbency. He has been able to tolerate CPAP at bedtime without orthopnea. He does complain of occasional dull epigastric and right upper quadrant ache over the past week but currently this is absent. He denies any josh chest pain with exertion or at rest. His weight this morning was 263. He denies any lower extremity swelling except for his left foot. In ER patient remained hemodynamically stable. He was administered 80 mg of IV Lasix prior to my evaluation. He was noted to have a supratherapeutic INR at 6.6, respiratory alkalosis with a pH of 7.49 and PCO2 of 34. His BUN and his creatinine were stable at 24 and 1.81, potassium low at 3.3, troponin WNL, proBNP 21,156 which is a substantial increase from prior which was 1945. Chest x-ray consistent with pulmonary edema. Admission Exam Per Admitting Provider Constitutional: WD/WN, appears older than stated age, vitals as above, NAD, sitting up in bed, pleasant, conversing easily Head: Normocephalic, Atraumatic Eyes: PERRL, conjunctivae normal, anicteric sclerae ENMT: external ear and nose normal, oropharynx normal Neck: trachea midline, no thyromegaly normal visual inspection Respiratory:On 4 L of O2, normal respiratory effort, lungs clear to auscultation, bibasilar rales noted, no wheeze or rhonchi. Normal insp/exp effort, no accessory muscle use Cardiovascular: RRR, aortic valve click noted, pacer site noted, trace lower extremity pretibial edema Vessels: no JVD or carotid bruit Chest: normal inspection of chest Abdomen: normal bowel sounds, soft, nontender, no hepatosplenomegaly Musculoskeletal: no cyanosis or clubbing, extremities motor strength 5/5 Skin: no rashes, warm and dry normal turgor Neurologic: PERRL, EOMI, accommodation nl, no face palsy, no dysarthria CN's II-XI intact bilaterally and moves all extremities Psychiatric: A+Ox3, euthymic affect Lymphatic: no cervical or axillary lymphadenopathy : deferred Principal Diagnosis (1) Acute on chronic HFrEF (heart failure with reduced ejection fraction): (2) Hypoxia: (3) Supratherapeutic INR: (4) Diabetes mellitus, type 2: (5) CAD (coronary artery disease): (6) H/O mitral valve replacement: (7) PAF (paroxysmal atrial fibrillation): (8) CKD (chronic kidney disease) stage 4, GFR 15-29 ml/min: (9) OBED on CPAP: (10) community acquired pneumonia Discharge Exam CONSTITUTIONAL: obese, deconditioned, NAD, no conversational dyspnea or increased work of breathing. EYES: normal conjunctivae, no scleral icterus ENT: external ear and nose normal, MMM RESPIRATORY: clear to auscultation bilaterally, no crackles, rales or wheezes, normal respiratory effort CARDIOVASCULAR: regular rate and rhythm, S1 and 2 heard without murmurs, gallops or rubs, no JVD, no peripheral edema CHEST: inspection of chest was normal (+pacemaker, +port) GASTROINTESTINAL: normal bowel sounds, soft, nontender, no hepatomegaly, no guarding MUSCULOSKELETAL: generalized weakness SKIN: warm and dry NEUROLOGIC: CN 2-12 grossly intact, no sensory deficit, normal cognition, normal speech, no tremor PSYCHIATRIC: alert cooperative and oriented to person, place and time. Discharge Data Allergies Allergy/AdvReac Type Severity Reaction Status Date / Time No Known Allergies Allergy Unverified 02/12/20 18:24 Consultations 07/14/20 13:38 ED Decision to Admit Stat 07/14/20 13:44 Consult Cardiology Routine 07/17/20 09:09 Consult Pulmonology Routine 07/17/20 11:45 Consult Golf Course Superintendent Routine Ordered Studies Laboratory Results WBC 9.02 K/uL (4.8-10.8) 07/24/20 06:35 RBC 3.18 M/uL (4.7-6.1) L 07/24/20 06:35 Hgb 9.5 g/dL (14.0-18.0) L 07/24/20 06:35 POC Hgb 11.9 g/dl (14.0-18.0) L 07/18/20 04:36 Hct 30.2 % (42-52) L 07/24/20 06:35 POC Hct 35 % (42-52) L 07/18/20 04:36 MCV 95.0 fL (80-100) 07/24/20 06:35 MCH 29.9 pg (25-34) 07/24/20 06:35 MCHC 31.5 g/dL (32-36) L 07/24/20 06:35 RDW Std Deviation 51.1 fL (36.4-46.3) H 07/24/20 06:35 RDW Coeff of Rosio 15.3 % (11.5-14.5) H 07/24/20 06:35 Plt Count 333 K/uL (130-400) 07/24/20 06:35 MPV 11.8 fL (7.4-10.4) H 07/24/20 06:35 Immature Gran % (Auto) 0.3 % 07/17/20 06:51 Neut % (Auto) 80.0 % 07/17/20 06:51 Lymph % (Auto) 10.3 % 07/17/20 06:51 [place] % (Auto) 9.2 % 07/17/20 06:51 Eos % (Auto) 0.1 % 07/17/20 06:51 Baso % (Auto) 0.1 % 07/17/20 06:51 Neut # (Auto) 11.00 K/uL (1.4-6.5) H 07/17/20 06:51 Lymph # (Auto) 1.42 K/uL (1.2-3.4) 07/17/20 06:51 [place] # (Auto) 1.26 K/uL (0.11-0.59) H 07/17/20 06:51 Eos # (Auto) 0.02 K/uL (0-0.5) 07/17/20 06:51 Baso # (Auto) 0.02 K/uL (0-0.2) 07/17/20 06:51 Immature Gran # (Auto) 0.04 K/uL (0.00-0.02) H 07/17/20 06:51 PT 30.3 Seconds (9.0-12.0) H 07/25/20 12:15 INR 3.3 (0.9-1.1) H 07/25/20 12:15 APTT 36.0 Seconds (21.0-31.0) H 07/16/20 06:08 PTT Ratio 1.4 07/16/20 06:08 POC pH 7.48 (7.35-7.45) H 07/18/20 04:36 POC pCO2 39 mmHg (35-46) 07/18/20 04:36 POC pO2 103 mmHg (80-95) H 07/18/20 04:36 POC HCO3 29 harris/L (19-24) H 07/18/20 04:36 POC Total CO2 30 mmol/L (24-31) 07/18/20 04:36 POC Base Excess 5.0 harris/L (-9-1.8) H 07/18/20 04:36 ABG pH 7.50 (7.35-7.45) H 07/17/20 06:51 ABG pCO2 33 mmHg (35-46) L 07/17/20 06:51 ABG pO2 78 mmHg (80-95) L 07/17/20 06:51 ABG HCO3 26 mmol/L (19-24) H 07/17/20 06:51 POC ABG O2 Sat 98.0 % (90-95) H 07/18/20 04:36 ABG O2 Saturation 96.1 % (90-95) H 07/17/20 06:51 ABG Base Excess 2.6 mEq/L (-9-1.8) H 07/17/20 06:51 Pedro Test Pos (Pos) 07/17/20 06:51 Barometric Pressure 733.3 mm/Hg 07/17/20 06:51 Oxygen Given 10L 07/17/20 06:51 POC Sodium 138 mmol/L (135-144) 07/18/20 04:36 Sodium 135 mmol/L (136-145) L 07/25/20 05:50 POC Potassium 4.2 mmol/L (3.3-5.0) 07/18/20 04:36 Potassium 4.7 mmol/L (3.5-5.1) 07/25/20 07:20 Chloride 105 mmol/L (98-107) 07/25/20 05:50 Carbon Dioxide 25 mmol/L (21-32) 07/25/20 05:50 Anion Gap 5.0 (3-11) 07/25/20 05:50 BUN 46 mg/dl (7-18) H 07/25/20 05:50 Creatinine 2.05 mg/dl (0.6-1.4) H 07/25/20 05:50 Est Cr Clr Drug Dosing 40.0 ml/min 07/25/20 05:50 Est GFR ( Amer) 36.2 07/25/20 05:50 Est GFR (Non-Af Amer) 31.2 07/25/20 05:50 BUN/Creatinine Ratio 22.4 (10-20) H 07/25/20 05:50 Glucose 86 mg/dl (70-99) 07/25/20 05:50 POC Glucose 112 mg/dl (70-99) H 07/25/20 08:20 Estimat Average Glucose 148 mg/dl 07/15/20 05:26 Hemoglobin A1c 6.8 % (4.5-5.6) H 07/15/20 05:26 Lactate 1.7 mmol/L (0.4-2.0) 07/17/20 12:33 Calcium 8.8 mg/dl (8.5-10.1) 07/25/20 05:50 Phosphorus 4.9 mg/dl (2.5-4.9) 07/18/20 04:50 Magnesium 2.4 mg/dl (1.8-2.4) 07/18/20 04:50 Total Bilirubin 0.6 mg/dl (0.2-1) 07/23/20 05:28 Direct Bilirubin 0.3 mg/dl (0-0.2) H 07/18/20 04:50 AST 26 U/L (15-37) 07/23/20 05:28 ALT 44 U/L (12-78) 07/23/20 05:28 Alkaline Phosphatase 85 U/L (45-117) 07/23/20 05:28 Troponin I 0.035 ng/ml (0-0.045) 07/14/20 11:45 NT-Pro-B Natriuret Pep 25889 pg/ml (0-900) H 07/14/20 11:45 Total Protein 6.2 gm/dl (6.4-8.2) L 07/23/20 05:28 Albumin 2.4 gm/dl (3.4-5.0) L 07/23/20 05:28 Globulin 3.8 gm/dl (2.5-4.0) 07/23/20 05:28 Albumin/Globulin Ratio 0.6 (0.9-2) L 07/23/20 05:28 Procalcitonin 0.83 ng/ml (0-0.5) H 07/19/20 04:58 Specimen Hemolysis 07/14/20 11:45 Urine Color Yellow 07/17/20 12:35 Urine Appearance Clear (Clear) 07/17/20 12:35 Urine pH 5.0 (4.5-7.5) 07/17/20 12:35 Ur Specific [place] 1.011 (1.000-1.030) 07/17/20 12:35 Urine Protein Negative (Negative) 07/17/20 12:35 Urine Glucose (UA) Negative (Negative) 07/17/20 12:35 Urine Ketones Negative (Negative) 07/17/20 12:35 Urine Blood 2+ (Negative) H 07/17/20 12:35 Urine Nitrite Negative (Negative) 07/17/20 12:35 Urine Bilirubin Negative (Negative) 07/17/20 12:35 Urine Urobilinogen Negative (Negative) 07/17/20 12:35 Ur Leukocyte Esterase 1+ (Negative) H 07/17/20 12:35 Urine WBC (Auto) 5-10 /hpf (0-5) H 07/17/20 12:35 Urine RBC (Auto) 5-10 /hpf (0-4) H 07/17/20 12:35 U Hyaline Cast (Auto) 5-10 /lpf (0-5) H 07/17/20 12:35 U Epithel Cells (Auto) 5-10 /lpf (0-5) H 07/17/20 12:35 Urine Bacteria (Auto) Negative (Negative) 07/17/20 12:35 Nasal Screen MRSA (PCR) Negative (Negative) 07/17/20 11:50 COVID-19 Eval Order [facility]19 [facility] 07/25/20 11:33 SARS-CoV-2 (PCR) NEGATIVE (Negative) 07/14/20 11:45 Influenza Type A (PCR) Negative (Neg) 07/14/20 11:45 Influenza Type B (PCR) Negative (Neg) 07/14/20 11:45 Urine Legionella Ag SEE NOTE 07/17/20 12:35 Mycoplasma pneumon IgG 2.43 (<=0.90) H 07/17/20 12:21 Mycoplasma pneumon IgM 57 U/mL (<770) 07/17/20 12:21 RSV (RT-PCR) Negative (Neg) 07/14/20 11:45 SARS-CoV-2, RNA, NAAT NEGATIVE (NEGATIVE) 07/25/20 11:33 Impressions Renal Ultrasound 07/17/20 12:00 RENAL ULTRASOUND CLINICAL HISTORY: Acute kidney injury. COMPARISON STUDY: None. TECHNIQUE: Sonography of the kidneys and the urinary bladder was performed. FINDINGS: There is no hydronephrosis. Left kidney is partially obscured. Right kidney measures 9.9 x 5.5 x 4.6 cm and the left kidney measures 9.6 x 5 x 5 cm. Moderate bilateral renal cortical thinning is noted. Bladder is collapsed, containing a Matthews balloon. There are gallstones and sludge within the gallbladder. There is no gallbladder wall thickening. No pericholecystic fluid is present. IMPRESSION: 1. No hydronephrosis. 2. Moderate bilateral renal cortical thinning. 3. Cholelithiasis and sludge within the gallbladder. No gallbladder wall thickening. No pericholecystic fluid. ACT 112: Negative or not required by law. Electronically signed by: Ayo Sage M.D. 07/17/2020 12:42 PM Chest X-Ray 07/18/20 06:49 XR chest 1V portable CLINICAL HISTORY: Infiltrates RESPIRATORY FAILURE COMPARISON STUDY: 07/17/2020 FINDINGS: The heart remains enlarged. There is an endotracheal tube positioned 32 mm above the myah. There are postsurgical changes of midline sternotomy and aortic valve replacement. There is a left subclavian pacer/defibrillator. There is continued radiographic evidence of congestive failure/fluid overload with bilateral pleural effusions airspace opacities, likely representing pulmonary edema. These are equivocally improved.[ IMPRESSION: Equivocal slight improvement in the pulmonary edema pattern. ACT 112: Negative or not required by law. Electronically signed by: Adrien Cruz M.D. 07/18/2020 7:16 AM Hospital Course (1) Acute on chronic HFrEF (heart failure with reduced ejection fraction): (2) Hypoxia: (3) Supratherapeutic INR: (4) Diabetes mellitus, type 2: (5) CAD (coronary artery disease): (6) H/O mitral valve replacement: (7) PAF (paroxysmal atrial fibrillation): (8) CKD (chronic kidney disease) stage 4, GFR 15-29 ml/min: (9) CAP (community acquired pneumonia): (10) OBED on CPAP: The patient is a 74-year-old man who presented to the ER with worsening shortness of breath. On arrival he was 85% oxygenation on room air which improved on supplemental oxygen. He typically does not wear oxygen at home. His INR was elevated to 6.6, however, he was not actively bleeding. ABG revealed a mild alkalosis with no significant CO2 retention. Renal insufficiency was noted with a creatinine of 1.81, consistent with his baseline. BNP was significantly elevated at over 21,000 consistent with the clinical picture of acute CHF exacerbation. A chest x-ray revealed pulmonary vascular congestion. Covid and influenza testing were negative. No evidence of ACS was noted. He received 80 mg of Lasix IV while in the ER and was admitted to the hospitalist service. Cardiology was consulted noting the patient had 3 weeks of worsening dyspnea with exertion. INR elevation was thought secondary to passive congestion and Coumadin continue to be held. Spironolactone was started at 25 mg p.o. daily and echocardiogram was performed revealing no significant change compared to his most recent echocardiogram on 12/31/2019. Results included mildly dilated LV chamber size with mild concentric LVH, severely reduced LV systolic function with an EF of 25 to 30%. Basal inferior and posterior segments are severely hypokinetic to akinetic. The apex was severely hypokinetic to akinetic otherwise moderate global hypokinesis was seen. Grade 2 diastolic dysfunction was present. Appropriately functioning aortic and mitral valve bioprosthesis were seen. And significant pulmonary hypertension was present with a PA systolic pressure of 62 mm Hg. on hospital day 4 was noted his respiratory status have declined despite aggressive diuresis. His white count was elevated with a left shift and a pro calcitonin level was positive suggestive of an infection. Pacemaker interrogation reveals an appropriately performing BiV ICD with 100% BiV pacing which is the goal of therapy. On 07/17 he was placed in the ICU for acute respiratory failure with hypoxia. Diuresis was continued with furosemide 60 mg IV every 8 hours. Spironolactone was placed on hold. He was intubated and placed on mechanical ventilator due to increased work of breathing and increased lethargy. The following day he was successfully extubated directly to BiPAP and then downgraded to nasal cannula shortly thereafter. Based on worsened renal function Lasix and spironolactone were held. Rocephin and doxycycline were given for possible community-acquired pneumonia and he completed the course of antibiotics during the hospital stay. A follow-up chest xray is recommended in 4-6 weeks to ensure complete resolution of pneumonia. Importantly, this patient will need to continue current dose of diuretics to ensure he doesn't go back into heart failure. Daily standing weights are also advised as well as a low salt diet. Repeat BMP in one week to check potassium and renal function is recommended with current medication regimen and recent hospital stay. Aldactone was recommended initially 2/2 systolic heart failure but was not continued at discharge because of elevated potassium. Insulin (both long and short acting) was also decreased while in the hospital from home values, which should be followed up by primary care provider. He is also now needing supplemental oxygen 2/2 physical deconditioning and multiple insults to his cardiac status. He will be transferred to rehab at a SNF for further conditioning and monitoring as a transition to home. Off antibiotics, his INR is now 3.3. Warfarin was held prior to discharge but should be restarted now. Rechecking INR is also recommended 1-2 times over the next week with adjustments as needed for goal INR 2-3. Total Time Total Time Spent Total Time Spent (In Minutes): 60 Total Time Includes: Examination of the Patient, Discharge Planning, Medication Reconciliation and Communication With Other Providers Discharge Plan Discharge Items Patient Disposition: Transfer Senior Living Fac Reason For Visit: ACUTE DECOMPENSATED SYSTOLIC CHF Discharge Diagnosis: (1) Acute on chronic HFrEF (heart failure with reduced ejection fraction): (2) Hypoxia: (3) Supratherapeutic INR: (4) Diabetes mellitus, type 2: (5) CAD (coronary artery disease): (6) H/O mitral valve replacement: (7) PAF (paroxysmal atrial fibrillation): (8) CKD (chronic kidney disease) stage 4, GFR 15-29 ml/min: (9) OBED on CPAP: (10) community acquired pneumonia Condition on Discharge: [facility] Concerns: follow INR which was supratherapeutic close to discharge follow potassium within the week which was elevated close to discharge Activity: Per Instructions section Activity Comment: Per SNF PT/OT evals Lifting: None Bathing: No limitations Exercise/Sports: Gradually increase as tolerated Weightbearing: Full weightbearing Non-emergency contact: Primary Care Provider and Service Advisor Call non-emergency contact if: you have any medication questions Follow-up/Referrals: Martell Guzmán DO [Physician] - (4 weeks) Fabricio Aj [facility] [Non-Staff] - Glenn Payne PA-C [Primary Care Provider] - Diet: Carb Consistent or DM2 Fluids: 1500ml (6 cups) Addtl Attending Provider Instructions: Please take all medications as instructed on discharge list below. As INR returned on 07/25 (day of discharge) at 3/3, you may now resume your warfarin at 1.25mg daily. A repeat INR check is recommended in 2 days to ensure you are at goal 2-3. You will eventually need a medication called spironolactone to help with your heart, however, your potassium level was too high to continue that medication (given in the hospital) at discharge. Please follow-up wtih your primary care provider in one week of discharge to discuss adding this medication to your regimen. It is also recommended that you have a BMP (nonfasting bloodwork) in one week to ensure your kidney function and electrolytes are stable after multiple adjustments of medications here in the hospital. You received a course of antibiotics for pneumonia during this hospital stay. It is recommended that you consider follow-up imaging in 4-6 weeks to ensure complete resolution of pneumonia. This may be ordered by your primary care doctor. Your insulin (both kinds) has been decreased during your stay in the hospital. This will need to be followed closely by your primary care provider, also. You will need to continue using supplemental oxygen for now, and will receive a prescription for this when you leave the rehab facility. Please follow closely with your sawmill tally clerk upon discharge from rehab. It was a pleasure taking care of you! Please call if you have any questions or problems. You can reach a [facility] hospitalist on duty at [facility] 24 hours a day by calling [phone]. Take care of yourself. Park Kulkarni, DO [facility] Pending Studies at Discharge: No Stand-Alone Forms: My [facility] Skilled Items Patient informed of condition?: Yes DNR: No Discharge Level of Care: Skilled Communicable Disease: No Discharge Prognosis: Improving Lines: None Urinary Catheter: No Medications and DC Order Prescriptions: New warfarin 2.5 mg tablet 1.25 mg PO DAILY Qty: 20 RF: 0 Tresiba FlexTouch U-100 100 unit/mL (3 mL) insulin pen 15 unit subcut QAM Qty: 15 RF: 0 insulin aspart U-100 [Novolog Flexpen U-100 Insulin] 100 unit/mL (3 mL) insulin pen 8 unit subcut AC Qty: 15 RF: 0 Continued clopidogrel 75 mg tablet 75 mg PO QAM RF: 0 furosemide 80 mg tablet 80 mg PO QAM RF: 0 nitroglycerin 0.4 mg tablet, sublingual 0.4 mg sublingual DIRECTED PRN (Reason: Chest Pain) RF: 0 omeprazole 20 mg capsule,delayed release(DR/EC) 20 mg PO QAM PRN (Reason: Gi Upset) RF: 0 albuterol sulfate 90 mcg/actuation HFA aerosol inhaler 2 puff INHALATION QID PRN (Reason: Shortness Of Breath Or Wheezing) RF: 0 ascorbic acid (vitamin C) [Vitamin C] 500 mg Tablet,Chewable 500 mg PO BID RF: 0 docusate sodium 100 mg Capsule 100 mg PO BID RF: 0 atorvastatin 80 mg tablet 80 mg PO QPM RF: 0 metoprolol succinate 100 mg tablet extended release 24 hr 100 mg PO DAILY RF: 0 cyanocobalamin (vitamin B-12) 1,000 mcg/mL Solution 1,000 mcg IM MO RF: 0 magnesium oxide 400 mg magnesium Tablet 400 mg PO DAILY RF: 0 isosorbide mononitrate 30 mg tablet extended release 24 hr 60 mg PO QAM 30 Days Qty: 60 RF: 0 duloxetine 20 mg capsule,delayed release(DR/EC) 20 mg PO QAM RF: 0 furosemide 80 mg Tablet 40 mg PO DAILY@1300 RF: 0 cholecalciferol (vitamin D3) [Vitamin D3] 125 mcg (5,000 unit) Tablet 125 mcg PO Q2D RF: 0 Discontinued amiodarone 200 mg tablet 200 mg PO DAILY RF: 0 insulin aspart U-100 [Novolog Flexpen U-100 Insulin] 100 unit/mL (3 mL) insulin pen 0 unit subcut AC RF: 0 Tresiba FlexTouch U-200 200 unit/mL (3 mL) insulin pen 36 unit SUBCUT QAM RF: 0 amoxicillin 500 mg Capsule 2,000 mg PO UD RF: 0 warfarin 2.5 mg Tablet 2.5 mg PO We@1600 RF: 0 warfarin 2.5 mg Tablet 1.25 mg PO SUMOTUTHFRSA@1600 RF: 0 Discharge Orders: Discharge Order (Routine); Ordered 07/25/20 Ordered By: Park Rosenthal/Other Patient Handouts: Managing Type 2 Diabetes, Managing Diabetes: The A1C Test Admission Data Admit Date/Time: 07/14/20 13:44 Attending Provider: Park Kulkarni Admit Provider: Delta Benedict Primary Care Provider: Glenn Payne Other Providers: Owen Kelley ; [place],[facility] ; Fabricio Aj [facility] ; Delta Benedict ; Martell Guzmán Other Interventions: Discharge Summary Assessment (RN) Last Done: 07/25/20 11:51
[2020-07-25 12:48] LABS: INR 3.3 (0.9-1.1); Prothrombin Time 30.3 Seconds (9.0-12.0)
== END 2020-07-25 12:30 | DRG 291 ==
LOC: ED 11:32 → SUATTDRO 13:44 → 2S 13:44 → 1E 07-17 11:37 → 2S 07-19 17:43 → 3N 07-22 09:37

== ENCOUNTER 2020-08-16 05:25 | Inpatient (IN) ==
--- NOTE | 2020-08-16 05:45 | Emergency Department Note ---
Impression & Plan Hypoxia, Pulmonary edema, Non-ST elevation (NSTEMI) myocardial infarction ED Provider Note NAME: MATILDE HOOKS AGE: 74 SEX: M ARRIVES VIA: Ambulance INFORMANT: Patient ED PROVIDER(S): Tammi Serna DO CHIEF COMPLAINT: Chest tightness and shortness of breath PLAN: Disposition: Admitted to the [facility] [place] service Condition: Stable MEDICAL DECISION MAKING: This is a 74-year-old male patient who presents to the emergency department with chest tightness and shortness of breath. Chest x-ray shows evidence of pulmonary edema. Patient was significantly hypoxic without supplemental oxygen. Patient was given IV Lasix here in the emergency department. He was stable on 2 L of supplemental oxygen. The patient does have an elevated troponin. I discussed the case with Dr. Steel who is willing to admit the patient for inpatient care. Triage Nursing notes reviewed and agree them. Additional history obtained from EMS Prior medical records reviewed Vital Signs: reviewed and unremarkable Differential diagnosis: CHF, STEMI, NSTEMI, pneumonia, pneumothorax ER treatment provided: IV Lasix Diagnostics interpreted by me: ECG: Ventricular paced rhythm at a rate of [address] segment elevation or signs of ischemia and no ectopy Cardiac Monitoring: None Laboratory studies: See below Imaging studies: As per my interpretation Chest x-ray: Cardiomegaly with pulmonary edema HPI: 74/M arrives for evaluation of shortness of breath. The patient explains that he was discharged from [facility] without any home oxygen over the past 5 days. He has been having intermittent chest discomfort that he rates as a 2/10. He was sleeping normally tonight when his pacer alarmed and woke him up.(His pacer has been malfunctioning.) When the patient got up to move around, he was significantly short of breath. EMS was called and they found his O2 saturations to be in the 70s. He was placed on supplemental oxygen and this relieved the substernal chest discomfort. The patient has lower extremity swelling. He has received his Covid vaccines. ROS: See above HPI for pertinent positives & negatives. A total of 10 systems reviewed and were otherwise negative. PAST MEDICAL HISTORY:See Below PAST SURGICAL HISTORY:See Below FAMILY HISTORY:See Below SOCIAL HISTORY:See Below HOME MEDICATIONS:See list ALLERGIES:None VITALS:See Below PHYSICAL EXAMINATION: HEENT: Head - normocephalic and atraumatic. Pupils are equal, round, and reactive to light. Extraocular eye muscles are intact, and sclera are anicteric. Nose - moist nasal mucosa without discharge. Mouth - moist buccal mucosa. Oropharynx is nonerythematous and there is no tonsillar exudate or e wanda noted. Neck: Supple; no JVD, nuchal rigidity, cervical lymphadenopathy, or auscultated bruits. Heart: Regular rate and rhythm. There is a normal S1 and S2 with no murmurs, clicks, or gallops appreciated. Lungs: Diminished breath sounds in all lung monroy with rales at the bases. Abdomen: Soft, completely nontender, nondistended, with good bowel sounds. There are no palpable pulsatile masses or hepatosplenomegaly. There is no guarding, rigidity, or rebound noted. Extremities: No evidence of cyanosis, clubbing, or edema. There are easily palpable peripheral pulses. Skin: Pale, warm and dry with good turgor and no rashes. ED COURSE: Times/Reassessments: 0530: Patient was evaluated in room a 10. A complete history and physical was performed. Previous electronic medical records were reviewed. An order was placed for continuous cardiac monitoring. The patient was in a paced ventricular rhythm at a rate of 73. A twelve-lead EKG was obtained. A portable chest x-ray was performed and showed pulmonary edema. The patient was able to maintain O2 saturations at 98% on 2 L of oxygen by nasal cannula. Patient was given a bolus of 40 mg of IV Lasix. O2 saturations remained stable. I reviewed with him the results of the laboratory studies and x-rays. I discussed the case with the [facility] and they will evaluate for further management. I have personally spent greater than 30 minutes of critical care time in the direct management of this patient. This includes bedside care, interpretation of diagnostic studies, and testing, discussion with consultants, patient, and family members, and other required patient management activities. This 30 minutes is in excess of all separately billable procedures. Tammi Serna DO Past Med/Surg History Medical History Acute respiratory failure with hypoxia CAD (coronary artery disease) 07/2018: coronary artery bypass grafting x1 with reverse saphenous vein from aorta to right coronary artery via endoscopic saphenous vein harvesting; PCI to mid LAD with RIZWAN Chronic HFrEF (heart failure with reduced ejection fraction) Chronic kidney disease CKD (chronic kidney disease) stage 4, GFR 15-29 ml/min Diabetes mellitus, type 2 GERD (gastroesophageal reflux disease) History of ventricular fibrillation Hyperlipidemia Hypertension OBED on CPAP PAF (paroxysmal atrial fibrillation) Pernicious anemia Surgical History H/O aortic valve replacement Status post bioprosthetic AVR in 2004 Aortic valve prosthesis stenosis and mitral regurgitation requiring redo sternotomy jul 21 2013 with redo AVR and subsequent MVR. H/O mitral valve replacement History of appendectomy History of cardiac cath History of colonoscopy History of coronary artery bypass graft x 1 coronary artery bypass grafting x1 with reverse saphenous vein from aorta to right coronary artery via endoscopic saphenous vein harvesting. History of heart artery stent History of heart valve replacement ICD (implantable cardioverter-defibrillator) in place Family History Father Heart disease [place] @ age 64 Mother , age 34, stomach ca Cancer Social History Smoking Status: Never smoker Second Hand Exposure: No; Hx Alcohol Use: Yes Hx Substance Use: No Preferred Language: Bulgarian Communication Ability: Effective Cylinder Press Feeder Required: No Beliefs That Will Affect Care: None marital status: Single Current Living Situation: Alone current occupation: retired Other Information That Helps Us Care for You: No Feels Safe at Home: Yes Safety Concerns: Feels Safe At This Time Assistive Devices: CPAP and Oxygen - Continuous Allergies Allergies Allergy/AdvReac Type Severity Reaction Status Date / Time No Known Allergies Allergy Unverified 02/12/20 18:24 Home Meds Home Medications Medication Instructions Recorded Confirmed albuterol sulfate 2 puff INHALATION QID PRN 12/07/19 08/16/20 ascorbic acid (vitamin C) [Vitamin 500 mg PO BID 12/07/19 08/16/20 C] clopidogrel 75 mg PO QAM 12/07/19 08/16/20 docusate sodium 100 mg PO BID 12/07/19 08/16/20 furosemide 80 mg PO QAM 12/07/19 08/16/20 nitroglycerin 0.4 mg SUBLINGUAL DIRECTED PRN 12/07/19 08/16/20 omeprazole 20 mg PO QAM PRN 12/07/19 08/16/20 atorvastatin 80 mg PO QPM 12/30/19 08/16/20 cyanocobalamin (vitamin B-12) 1,000 mcg IM MO 12/30/19 08/16/20 magnesium oxide 400 mg PO DAILY 12/30/19 08/16/20 metoprolol succinate 100 mg PO DAILY 12/30/19 08/16/20 duloxetine 20 mg PO QAM 02/12/20 08/16/20 cholecalciferol (vitamin D3) 125 mcg PO Q2D 07/14/20 08/16/20 [Vitamin D3] furosemide 40 mg PO DAILY@1300 07/14/20 08/16/20 amiodarone 200 mg PO DAILY 08/16/20 08/16/20 Previous Rx's Medication Instructions Recorded isosorbide mononitrate 60 mg PO QAM 30 Days #60 tab 01/06/20 insulin aspart U-100 [Novolog 8 unit SUBCUT AC #15 ml 07/25/20 Flexpen U-100 Insulin] insulin degludec [Tresiba 15 unit SUBCUT QAM #15 ml 07/25/20 FlexTouch U-100] warfarin 1.25 mg PO DAILY #20 tab 07/25/20 Results & Data (ED) Vital Signs Vital Signs - 24 hr 08/16/20 05:32 08/16/20 05:34 08/16/20 05:39 Temperature 37.0 C Temperature Source Oral Pulse Rate 74 74 85 Pulse Rate [Apical] Pulse Rate from SpO2 Sensor 75 74 Respiratory Rate 28 H 31 H 24 Respiratory Effort / Characteristics Respiratory Depth Normal Respiratory Pattern Regular Blood Pressure 120/59 L 120/59 L Blood Pressure [Right Arm] Blood Pressure Mean 79 79 Blood Pressure Mean [Right Arm] Pulse Oximetry 94 97 93 Oxygen Delivery Method Nasal Cannula Oxygen Flow Rate 2 Sepsis Recent Fever Within 48 Hours No Sepsis New/Unexplained Change in Mental Status N/A Sepsis Action Taken by Nursing No Action Required 08/16/20 05:45 08/16/20 06:00 08/16/20 06:15 Temperature Temperature Source Pulse Rate 71 71 70 Pulse Rate [Apical] Pulse Rate from SpO2 Sensor 72 71 69 Respiratory Rate 28 H 34 H 31 H Respiratory Effort / Characteristics Respiratory Depth Respiratory Pattern Blood Pressure Blood Pressure [Right Arm] Blood Pressure Mean Blood Pressure Mean [Right Arm] Pulse Oximetry 98 98 97 Oxygen Delivery Method Nasal Cannula Oxygen Flow Rate 2 Sepsis Recent Fever Within 48 Hours Sepsis New/Unexplained Change in Mental Status Sepsis Action Taken by Nursing 08/16/20 06:30 08/16/20 06:31 08/16/20 07:06 Temperature Temperature Source Pulse Rate 70 70 Pulse Rate [Apical] 69 Pulse Rate from SpO2 Sensor 67 70 Respiratory Rate 30 H 29 H 26 H Respiratory Effort / Characteristics Short of Breath Respiratory Depth Respiratory Pattern Tachypnea Blood Pressure 111/66 Blood Pressure [Right Arm] 122/77 Blood Pressure Mean 81 Blood Pressure Mean [Right Arm] 92 Pulse Oximetry 91 94 93 Oxygen Delivery Method Nasal Cannula Nasal Cannula Oxygen Flow Rate 2 2 Sepsis Recent Fever Within 48 Hours Sepsis New/Unexplained Change in Mental Status Sepsis Action Taken by Nursing Laboratory Data Result diagrams: 08/17/20 05:43 08/17/20 05:43 Lab Results 08/16/20 08/16/20 08/16/20 Range/Units 05:41 05:52 05:52 WBC 9.08 (4.8-10.8) K/uL RBC 2.98 L (4.7-6.1) M/uL Hgb 8.9 L (14.0-18.0) g/dL Hct 27.4 L (42-52) % MCV 91.9 (80-100) fL MCH 29.9 (25-34) pg MCHC 32.5 (32-36) g/dL RDW Std Deviation 53.2 H (36.4-46.3) fL RDW Coeff of Rosio 15.6 H (11.5-14.5) % Plt Count 247 (130-400) K/uL MPV 11.4 H (7.4-10.4) fL Immature Gran % (Auto) 0.2 % Neut % (Auto) 75.2 % Lymph % (Auto) 12.1 % [place] % (Auto) 9.9 % Eos % (Auto) 2.5 % Baso % (Auto) 0.1 % Neut # (Auto) 6.82 H (1.4-6.5) K/uL Lymph # (Auto) 1.10 L (1.2-3.4) K/uL [place] # (Auto) 0.90 H (0.11-0.59) K/uL Eos # (Auto) 0.23 (0-0.5) K/uL Baso # (Auto) 0.01 (0-0.2) K/uL Immature Gran # (Auto) 0.02 (0.00-0.02) K/uL PT 23.3 H (9.0-12.0) Seconds INR 2.5 H (0.9-1.1) APTT 40.4 H (21.0-31.0) Seconds PTT Ratio 1.5 Sodium (136-145) mmol/L Potassium (3.5-5.1) mmol/L Chloride (98-107) mmol/L Carbon Dioxide (21-32) mmol/L Anion Gap (3-11) BUN (7-18) mg/dl Creatinine (0.6-1.4) mg/dl Est Cr Clr Drug Dosing ml/min Est GFR ( Amer) ml/min Est GFR (Non-Af Amer) ml/min BUN/Creatinine Ratio (10-20) Glucose (70-99) mg/dl Calcium (8.5-10.1) mg/dl Magnesium 1.9 (1.8-2.4) mg/dl Total Bilirubin (0.2-1) mg/dl AST (15-37) U/L ALT (12-78) U/L Alkaline Phosphatase (45-117) U/L Troponin I (0-0.045) ng/ml NT-Pro-B Natriuret Pep 40053 H (0-900) pg/ml Total Protein (6.4-8.2) gm/dl Albumin (3.4-5.0) gm/dl Globulin (2.5-4.0) gm/dl Albumin/Globulin Ratio (0.9-2) COVID-19 Eval Order SARS-CoV-2 (PCR) (Negative) 08/16/20 08/16/20 08/16/20 Range/Units 05:52 05:52 07:25 WBC (4.8-10.8) K/uL RBC (4.7-6.1) M/uL Hgb (14.0-18.0) g/dL Hct (42-52) % MCV (80-100) fL MCH (25-34) pg MCHC (32-36) g/dL RDW Std Deviation (36.4-46.3) fL RDW Coeff of Rosio (11.5-14.5) % Plt Count (130-400) K/uL MPV (7.4-10.4) fL Immature Gran % (Auto) % Neut % (Auto) % Lymph % (Auto) % [place] % (Auto) % Eos % (Auto) % Baso % (Auto) % Neut # (Auto) (1.4-6.5) K/uL Lymph # (Auto) (1.2-3.4) K/uL [place] # (Auto) (0.11-0.59) K/uL Eos # (Auto) (0-0.5) K/uL Baso # (Auto) (0-0.2) K/uL Immature Gran # (Auto) (0.00-0.02) K/uL PT Cancelled (9.0-12.0) Seconds INR Cancelled (0.9-1.1) APTT (21.0-31.0) Seconds PTT Ratio Sodium 138 (136-145) mmol/L Potassium 3.1 L (3.5-5.1) mmol/L Chloride 104 (98-107) mmol/L Carbon Dioxide 26 (21-32) mmol/L Anion Gap 8.0 (3-11) BUN 27 H (7-18) mg/dl Creatinine 1.72 H (0.6-1.4) mg/dl Est Cr Clr Drug Dosing 48.1 ml/min Est GFR ( Amer) 44.7 ml/min Est GFR (Non-Af Amer) 38.6 ml/min BUN/Creatinine Ratio 15.5 (10-20) Glucose 166 H (70-99) mg/dl Calcium 8.2 L (8.5-10.1) mg/dl Magnesium (1.8-2.4) mg/dl Total Bilirubin 1.0 (0.2-1) mg/dl AST 19 (15-37) U/L ALT 19 (12-78) U/L Alkaline Phosphatase 77 (45-117) U/L Troponin I 0.053 H* (0-0.045) ng/ml NT-Pro-B Natriuret Pep (0-900) pg/ml Total Protein 6.9 (6.4-8.2) gm/dl Albumin 2.6 L (3.4-5.0) gm/dl Globulin 4.3 H (2.5-4.0) gm/dl Albumin/Globulin Ratio 0.6 L (0.9-2) COVID-19 Eval Order Covid19 at [facility] SARS-CoV-2 (PCR) (Negative) 08/16/20 Range/Units 07:25 WBC (4.8-10.8) K/uL RBC (4.7-6.1) M/uL Hgb (14.0-18.0) g/dL Hct (42-52) % MCV (80-100) fL MCH (25-34) pg MCHC (32-36) g/dL RDW Std Deviation (36.4-46.3) fL RDW Coeff of Rosio (11.5-14.5) % Plt Count (130-400) K/uL MPV (7.4-10.4) fL Immature Gran % (Auto) % Neut % (Auto) % Lymph % (Auto) % [place] % (Auto) % Eos % (Auto) % Baso % (Auto) % Neut # (Auto) (1.4-6.5) K/uL Lymph # (Auto) (1.2-3.4) K/uL [place] # (Auto) (0.11-0.59) K/uL Eos # (Auto) (0-0.5) K/uL Baso # (Auto) (0-0.2) K/uL Immature Gran # (Auto) (0.00-0.02) K/uL PT (9.0-12.0) Seconds INR (0.9-1.1) APTT (21.0-31.0) Seconds PTT Ratio Sodium (136-145) mmol/L Potassium (3.5-5.1) mmol/L Chloride (98-107) mmol/L Carbon Dioxide (21-32) mmol/L Anion Gap (3-11) BUN (7-18) mg/dl Creatinine (0.6-1.4) mg/dl Est Cr Clr Drug Dosing ml/min Est GFR ( Amer) ml/min Est GFR (Non-Af Amer) ml/min BUN/Creatinine Ratio (10-20) Glucose (70-99) mg/dl Calcium (8.5-10.1) mg/dl Magnesium (1.8-2.4) mg/dl Total Bilirubin (0.2-1) mg/dl AST (15-37) U/L ALT (12-78) U/L Alkaline Phosphatase (45-117) U/L Troponin I (0-0.045) ng/ml NT-Pro-B Natriuret Pep (0-900) pg/ml Total Protein (6.4-8.2) gm/dl Albumin (3.4-5.0) gm/dl Globulin (2.5-4.0) gm/dl Albumin/Globulin Ratio (0.9-2) COVID-19 Eval Order SARS-CoV-2 (PCR) NEGATIVE (Negative) Administered Medications Amiodarone HCl (Amiodarone 200 Mg Tab) 200 mg PO DAILY [facility] Stop: 09/15/20 10:36 Last Admin: 08/16/20 12:19 Dose: 200 mg Documented by: [id number] Ascorbic Acid (Ascorbic Acid 500 Mg Tab) 500 mg PO BID [facility] Stop: 09/15/20 10:36 Last Admin: 08/16/20 20:47 Dose: 500 mg Documented by: [id number] Admin: 08/16/20 12:18 Dose: 500 mg Documented by: [id number] Aspirin (Aspirin 81 Mg Ectab) 81 mg PO [facility] Stop: 09/15/20 08:59 Last Admin: 08/16/20 12:19 Dose: Not Given Documented by: [id number] Atorvastatin Calcium (Atorvastatin 40 Mg Tab) 80 mg PO QPM [facility] Stop: 09/15/20 20:59 Last Admin: 08/16/20 20:47 Dose: 80 mg Documented by: [id number] Clopidogrel Bisulfate (Clopidogrel Bisulfate 75 Mg Tab) 75 mg PO QAM [facility] Stop: 09/15/20 10:36 Last Admin: 08/16/20 12:18 Dose: 75 mg Documented by: [id number] Docusate Sodium (Docusate Sodium 100 Mg Cap) 100 mg PO BID [facility] Stop: 09/15/20 10:36 Last Admin: 08/16/20 20:47 Dose: 100 mg Documented by: [id number] Admin: 08/16/20 12:18 Dose: 100 mg Documented by: [id number] Duloxetine HCl (Duloxetine Hcl 20 Mg Cap) [facility] [place] Stop: 09/15/20 10:36 Last Admin: 08/16/20 12:19 Dose: 20 mg Documented by: [id number] Furosemide 80 mg/ Syringe 8 mls @ 4 mls/min IV [id number] [facility] Stop: 09/15/20 11:59 Last Admin: 08/17/20 07:39 Dose: 4 mls/min Documented by: [id number] Admin: 08/16/20 17:18 Dose: 4 mls/min Documented by: [id number] Admin: 08/16/20 12:19 Dose: 4 mls/min Documented by: [id number] Insulin Aspart (Insulin Aspart 100 Units/Ml 3 Ml Pen) 0 units SC ACHS [facility] Stop: 09/15/20 11:59 Last Admin: 08/16/20 20:56 Dose: Not Given Documented by: [id number] Cosigned by: [id number] Admin: 08/16/20 17:22 Dose: 14 units Documented by: [id number] Cosigned by: [id number] Admin: 08/16/20 12:24 Dose: Not Given Documented by: [id number] Cosigned by: [id number] Insulin Glargine (Insulin Glargine Solostar 100 Units/Ml 3 Ml Pen) 15 units SC DAILY [facility] Stop: 09/15/20 11:59 Last Admin: 08/16/20 12:20 Dose: 15 units Documented by: [id number] Cosigned by: [id number] Isosorbide Mononitrate (Isosorbide [place] Extended Rel 60 Mg Tabcr) 60 mg PO QAM [facility] Stop: 09/15/20 10:36 Last Admin: 08/16/20 12:18 Dose: 60 mg Documented by: [id number] Magnesium Oxide (Magnesium Oxide 400 Mg Tab) 400 mg PO DAILY [facility] Stop: 09/15/20 10:36 Last Admin: 08/16/20 12:18 Dose: 400 mg Documented by: [id number] Metoprolol Succinate (Metoprolol Succ 50mg Ext Rel Tab) 100 mg PO DAILY [facility] Stop: 09/15/20 10:36 Last Admin: 08/16/20 12:18 Dose: 100 mg Documented by: [id number] Miconazole Nitrate (Miconazole Nitrate Powder 43 Gm) 1 appln EXT BID [facility] Stop: 09/15/20 12:53 Last Admin: 08/16/20 20:48 Dose: 1 appln Documented by: [id number] Warfarin Sodium (Warfarin Sod 1.25 Mg Tab) 1.25 mg PO DAILY@1600 [facility] Stop: 09/15/20 15:59 Last Admin: 08/16/20 17:18 Dose: 1.25 mg Documented by: [id number] Discontinued Medications Furosemide (Furosemide 40 Mg/4 Ml Vial) 40 mg IV NOW STA Stop: 08/16/20 07:06 Last Admin: 08/16/20 07:19 Dose: 40 mg Documented by: [id number] Potassium Chloride (Potassium Chloride Crtab 20 Meq Tabcr) 40 meq PO NOW STA Stop: 08/16/20 07:59 Last Admin: 08/16/20 08:41 Dose: 40 meq Documented by: [id number] Imaging Data Radiologist's Impression: Chest X-Ray 08/16/20 05:41 XR chest 1V portable CLINICAL HISTORY: Atypical chest pain COMPARISON STUDY: 07/10/2020 FINDINGS: The endotracheal tube is been removed. The heart is enlarged. A valvular replacement is visualized. There is a left subclavian pacer/defibrillator present. There are bilateral pleural effusions. There are aggressive bilateral pulmonary airspace opacities. The findings likely represent progressive pulmonary edema although a bilateral infectious process could appear similar. IMPRESSION: Worsening pulmonary edema pattern. ACT 112: Negative or not required by law. Electronically signed by: Adrien Cruz M.D. 08/16/2020 6:51 AM Discharge Plan Visit Data Chief Complaint: Shortness of Breath/Dyspnea Stated Complaint: SOB ED Provider: Tammi Serna Discharge Problem: Hypoxia, Pulmonary edema, Non-ST elevation (NSTEMI) myocardial infarction Patient Disposition: Admitted As Inpatient Discharge Instructions Interventions: ED Discharge Assessment Last Done: 08/16/20 10:28 Discharge Problem: Pulmonary edema Qualifiers: Chronicity: acute Qualified Code(s): J81.0 - Acute pulmonary edema
[2020-08-16 06:02] LABS: Basophils # (auto) 0.01 K/uL (0-0.2); Basophils % (auto) 0.1 %; Eosinophils # (auto) 0.23 K/uL (0-0.5); Eosinophils % (auto) 2.5 %; Hematocrit (blood only) 27.4 % (42-52); Hemoglobin 8.9 g/dL (14.0-18.0); Immature Granulocytes # (auto) 0.02 K/uL (0.00-0.02); Immature Granulocytes % (auto) 0.2 %; Lymphocytes % (auto) 12.1 %; Mean Corpuscular Hemoglobin 29.9 pg (25-34); Mean Corpuscular Hgb Conc 32.5 g/dL (32-36); Mean Corpuscular Volume 91.9 fL (80-100); Mean Platelet Volume 11.4 fL (7.4-10.4); Monocytes % (auto) 9.9 %; Neutrophils # (auto) 6.82 K/uL (1.4-6.5); Neutrophils % (auto) 75.2 %; Platelet Count 247 K/uL (130-400); RDW Coefficient of Variation 15.6 % (11.5-14.5); RDW Standard Deviation 53.2 fL (36.4-46.3); Red Blood Count 2.98 M/uL (4.7-6.1); White Blood Count 9.08 K/uL (4.8-10.8)
[2020-08-16 06:21] LABS: Albumin Level 2.6 gm/dl (3.4-5.0); BUN Creatinine Ratio 15.5 (10-20); Calcium 8.2 mg/dl (8.5-10.1); Creatinine Clr Calc Pharmacy 48.1 ml/min; Est GFR (African American) 44.7 ml/min; Est GFR (Non-African American) 38.6 ml/min; Potassium 3.1 mmol/L (3.5-5.1)
[2020-08-16 06:27] LABS: Partial Thromboplastin Ratio 1.5; Partial Thromboplastin Time 40.4 Seconds (21.0-31.0)
[2020-08-16 06:37] LABS: Albumin Globulin Ratio 0.6 (0.9-2); Globulin 4.3 gm/dl (2.5-4.0); Total Protein 6.9 gm/dl (6.4-8.2); Troponin I 0.053 ng/ml (0-0.045)
--- NOTE | 2020-08-16 06:52 | XRay Report ---
XR chest 1V portable CLINICAL HISTORY: Atypical chest pain COMPARISON STUDY: 07/10/2020 FINDINGS: The endotracheal tube is been removed. The heart is enlarged. A valvular replacement is vis ualized. There is a left subclavian pacer/defibrillator present. There are bilateral pleural effusion s. There are aggressive bilateral pulmonary airspace opacities. The findings likely represent progres sive pulmonary edema although a bilateral infectious process could appear similar. IMPRESSION: Worsening pulmonary edema pattern. ACT 112: Negative or not required by law. Electronically signed by: Adrien Cruz M.D. 08/16/2020 6:51 AM
[2020-08-16] MEDS ORDERED: FUROSEMIDE 40 MG/4 ML VIAL IV STA (07:05)
[2020-08-16] MEDS ORDERED: POLYETHYLENE (MIRALAX) 17 GM PACK PO PRN (07:35)
[2020-08-16] MEDS ORDERED: NITROGLYCERIN SL 0.4 MG/TAB TAB SL PRN ×2 (07:35→10:37)
[2020-08-16] MEDS ORDERED: MAGNESIUM HYDROXIDE SUSP 30 ML UDC PO PRN (07:35)
[2020-08-16] MEDS ORDERED: ACETAMINOPHEN 325 MG TAB PO PRN (07:35)
[2020-08-16 07:41] LABS: INR 2.5 (0.9-1.1); Prothrombin Time 23.3 Seconds (9.0-12.0)
[2020-08-16] MEDS ORDERED: POTASSIUM CHLORIDE CRTAB 20 MEQ TABCR PO STA (07:58)
--- NOTE | 2020-08-16 08:38 | History & Physical Report ---
Date of Service August 16, 2020 Assessment & Plan (1) CHF (congestive heart failure): - Acute on chronic systolic and diastolic dysfunction - Last echo - during last admission, mildly dilated LV chamber size with mild concentric LVH, severely reduced LV systolic function with an EF 25-30%. Basal inferior and posterior segments are severely hypokinetic to akinetic. The apex was severely hypokinetic to akinetic otherwise moderate global hypokinesis was seen. Grade 2 diastolic dysfunction was present. Appropriately functioning aortic and mitral valve bioprosthesis were seen. Significant pulmonary hypertension was present with a PA systolic pressure of 62 mm Hg. - Baseline weight of 250-255 lbs, states weighed 255lbs at home 2 days ago --> currently 263.34 lbs on admission - Daily weights, strict I/Os, fluid restriction of 1800 mL, insert cordova cath - On lasix 80 mg QAM and 40 mg QPM at home-continue Lasix IV 80 mg twice daily - BNP >27,000, increased compared to numbers on last admission - CXR showing progressive pulmonary edema with bilateral pleural effusions - Continue Imdur 60 mg daily, metoprolol 100 mg daily, atorvastatin, Coumadin - Interrogate pacemaker - noted battery replacement in the near future. - Cardiology consulted- follows with Dr. Isaacs and Bryson Michelle PA-C as outpatient. (2) Pulmonary edema: -History of such, CXR reviewed -Elevated BNP -Diurese as above (3) CAD (coronary artery disease): -History of coronary bypass completed in 2014 -Continue beta-varsha, atorvastatin, Plavix (4) Elevated troponin: -Elevated at 0.053, trend x2 more set -Patient notes history of 3 weeks of waxing and waning chest pain over the left chest wall, rated currently as a 2/10 nonradiating. He has not used nitroglycerin tablets anytime recently. - EKG reviewed, no signs of ST wave inversions or signs of ischemia, ventricularly paced, prolonged QTC of 515. (5) Hypertension: -Continue antihypertensive medications above, BP is stable at 120s over 70s - missed morning meds so will resume for today. (6) Hyperlipidemia: -Statin therapy (7) PAF (paroxysmal atrial fibrillation): - Anticoagulated on coumadin, INR 2.5, takes 1.25 mg daily at home, continue, daily INRs (8) H/O mitral valve replacement: - s/p replacement in 2014 (9) H/O aortic valve replacement: - s/p replacement in 2014 (10) History of coronary artery bypass graft x 1: - As above, competed in 2013 (11) Pernicious anemia: - Hx of such, hgb 8.9, no signs of bleed, no needs for transfusion - Continue iron supplementation (12) CKD (chronic kidney disease) stage 4, GFR 15-29 ml/min: - Baseline of 1.7-1.8, currently 1.72 - Follow am BMP and monitor with aggressive diuresis as above (13) Diabetes mellitus, type 2: - uses insulin NovoLog 8 units subcu AC and Tresiba 15 units daily -Continue ISS with Accu-Cheks ACHS - A1C = 6.8 on 07/15/20 -Allow diabetic/HH diet (14) Hypokalemia: -Potassium of 3.1, given 40 meq PO in ER -History of hyperkalemia during last hospital stay, monitor (15) DVT prophylaxis: - teds, scds, Coumadin and Plavix CODE: Full code Dispo: From home, likely to remain in the hospital x 2 days. History of Present Illness Primary Care Provider: Glenn Payne PA-C This is a 74 yo M with PMHx significant for ischemic cardiomyopathy, CAD with history of CABG x1 and angioplasty, biventricular AICD in place, chronic HFrEF with diastolic dysfunction, history of aortic valve and mitral valve replacements, PAF anticoagulated on warfarin, HTN, HLD, OBED on CPAP, insulin- dependent T2DM, CKD stage IIIb4, depression, GERD who presents to ED secondary to shortness of breath. Patient was recently admitted to [facility] from 07/14/2020 to 07/25/2020 and then transferred to [facility] for rehab on 07/25/2020 to 08/10/2020. Patient arrived home last Thursday. Since then he reports progressive shortness of breath. He is unable to ambulate with walker more than 8-10 feet without significant dyspnea. He reports that his pacemaker went off in the middle the night around 3 AM, as well as early this morning again while in the ER. He notes his pacemaker will require battery replacement later this fall. He admits to having mild waxing and waning left-sided chest pain, rated as 2/10 for the past 3 weeks. He feels it is worse whenever he sleeps on his right side and his arm is laying against the pacemaker. Denies any radiation. Patient denies any changes in diet or fluid intake. Meals on Wheels did start coming back to his house, therefore ate 1 of those meals yesterday. His baseline weight is around 255 pounds, last weighed himself 2 days ago which was 255. At baseline he has some trace swelling in the right leg, however reports swelling has increased slightly in both his feet, and more so in the left. Denies bloating, abdominal swelling, or swelling in fingers. He has been taking all his routinely scheduled medications including Lasix 80 mg p.QAM and 40 mg QPM. He missed his medications today, other than potassium replacement, due to shortness of breath. Of note he was supposed to get home oxygen delivered to his house today, which has been somewhat of a struggle due to paperwork issues, and was supposed to be delivered soon after his discharge from [facility]. He does wear CPAP mask at night. Patient notes he was supposed to follow-up with cardiology as an outpatient tomorrow in the office. He follows with Dr. Isaacs and Bryson Michelle PA-C. Patient lives at home by himself. He has a neighbor who checks in on him once a day. No history of drinking or smoking. In the ER the patient is found to have troponin of 0.053, BNP of 27,000, CXR showing progress pulmonary edema. He has trace edema in his feet and ankles. Allergies Allergy/AdvReac Type Severity Reaction Status Date / Time No Known Allergies Allergy Unverified 02/12/20 18:24 Home Medications Medication Instructions Recorded Confirmed Type albuterol sulfate 2 puff INHALATION QID PRN 12/07/19 08/16/20 History ascorbic acid (vitamin C) [Vitamin 500 mg PO BID 12/07/19 08/16/20 History C] clopidogrel 75 mg PO QAM 12/07/19 08/16/20 History docusate sodium 100 mg PO BID 12/07/19 08/16/20 History furosemide 80 mg PO QAM 12/07/19 08/16/20 History nitroglycerin 0.4 mg SUBLINGUAL DIRECTED PRN 12/07/19 08/16/20 History omeprazole 20 mg PO QAM PRN 12/07/19 08/16/20 History atorvastatin 80 mg PO QPM 12/30/19 08/16/20 History cyanocobalamin (vitamin B-12) 1,000 mcg IM MO 12/30/19 08/16/20 History magnesium oxide 400 mg PO DAILY 12/30/19 08/16/20 History metoprolol succinate 100 mg PO DAILY 12/30/19 08/16/20 History isosorbide mononitrate 60 mg PO QAM 30 Days #60 tab 01/06/20 08/16/20 Rx duloxetine 20 mg PO QAM 02/12/20 08/16/20 History cholecalciferol (vitamin D3) 125 mcg PO Q2D 07/14/20 08/16/20 History [Vitamin D3] furosemide 40 mg PO DAILY@1300 07/14/20 08/16/20 History insulin aspart U-100 [Novolog 8 unit SUBCUT AC #15 ml 07/25/20 08/16/20 Rx Flexpen U-100 Insulin] insulin degludec [Tresiba 15 unit SUBCUT QAM #15 ml 07/25/20 08/16/20 Rx FlexTouch U-100] warfarin 1.25 mg PO DAILY #20 tab 07/25/20 08/16/20 Rx amiodarone 200 mg PO DAILY 08/16/20 08/16/20 History Past Med/Surg History Medical History Acute respiratory failure with hypoxia CAD (coronary artery disease) 07/2018: coronary artery bypass grafting x1 with reverse saphenous vein from aorta to right coronary artery via endoscopic saphenous vein harvesting; PCI to mid LAD with RIZWAN Chronic HFrEF (heart failure with reduced ejection fraction) Chronic kidney disease CKD (chronic kidney disease) stage 4, GFR 15-29 ml/min Diabetes mellitus, type 2 GERD (gastroesophageal reflux disease) History of ventricular fibrillation Hyperlipidemia Hypertension OBED on CPAP PAF (paroxysmal atrial fibrillation) Pernicious anemia Surgical History H/O aortic valve replacement Status post bioprosthetic AVR in 2004 Aortic valve prosthesis stenosis and mitral regurgitation requiring redo sternotomy jul 21 2013 with redo AVR and subsequent MVR. H/O mitral valve replacement History of appendectomy History of cardiac cath History of colonoscopy History of coronary artery bypass graft x 1 coronary artery bypass grafting x1 with reverse saphenous vein from aorta to right coronary artery via endoscopic saphenous vein harvesting. History of heart artery stent History of heart valve replacement ICD (implantable cardioverter-defibrillator) in place Family History Father Heart disease [place] @ age 64 Mother , age 34, stomach ca Cancer Social History Smoking Status: Never smoker Second Hand Exposure: No; Hx Alcohol Use: Yes Hx Substance Use: No Preferred Language: Malian Communication Ability: Effective Air Surveillance Operator Required: No Beliefs That Will Affect Care: None marital status: Single Current Living Situation: Alone current occupation: retired Other Information That Helps Us Care for You: No Feels Safe at Home: Yes Safety Concerns: Feels Safe At This Time Assistive Devices: CPAP, Oxygen - at Night and Walker Review of Systems Review of Systems: Constitutional: No fever, sweats or chills Eyes: No diplopia, no worsening or blurred vision ENT: normal hearing, no trouble swallowing, + dry mouth Respiratory: As per HPI Cardiovascular: As per HPI, + chest pain rated 2/10, waxing and waning, no tightness or palpitations Abdomen: No pain, + nausea earlier this morning, no vomiting, no diarrhea, + constipation, last BM 3 days ago. Musculoskeletal: No joint pain, calf pain, + swelling feet and ankles as per HPI Neurologic: No weakness, numbness/tingling, or balance problems, uses walker base Psychiatric: No anxiety or depression Skin: No rash or itch Physical Exam Physical Exam: General: awake, alert, no apparent distress, + obese with BMI 40.1 Head: Normocephalic, atraumatic ENT: PERRL, EOMI, no pharyngeal exudate, mucous membranes slightly dry Chest: Diminished with + faint crackles throughout, absent sounds at bases bilaterally, on 2L via NC with O2 sats at 93%. No rales or wheeze. Cardiac: Regular rate and rhythm, paced, no murmur, JVD unable to be assessed due to body habitus and leonardo on chin/neck, normal peripheral pulses, good capillary refill Abdominal: NABS x 4 quadrants, + obese, soft, nondistended, nontender to palpation, no rebound or guarding Extremities: Normal inspection, 1+ peripheral edema BLE in feet and ankles, no erythema, calfs nontender to palpation Psych: Normal mood and affect Neuro: AAO x 3, strength intact bilaterally and rated 5/5, no motor deficits, speech is clear, no peripheral sensory deficits Results & Data Results & Data ([facility]) Vital Signs (Past 12 Hours) Vital Signs Temp Pulse Pulse Resp BP BP Pulse Ox 08/16/20 07:06 69 26 H 122/77 93 08/16/20 06:31 70 29 H 111/66 94 08/16/20 06:30 70 30 H 91 08/16/20 06:15 70 31 H 97 08/16/20 06:00 71 34 H 98 08/16/20 05:45 71 28 H 98 08/16/20 05:39 37.0 C 85 24 120/59 L 93 08/16/20 05:34 74 31 H 97 08/16/20 05:32 74 28 H 120/59 L 94 Diagnostic Findings Chest X-Ray 08/16/20 05:41 XR chest 1V portable CLINICAL HISTORY: Atypical chest pain COMPARISON STUDY: 07/10/2020 FINDINGS: The endotracheal tube is been removed. The heart is enlarged. A valvular replacement is visualized. There is a left subclavian pacer/defibrillator present. There are bilateral pleural effusions. There are aggressive bilateral pulmonary airspace opacities. The findings likely represent progressive pulmonary edema although a bilateral infectious process could appear similar. IMPRESSION: Worsening pulmonary edema pattern. ACT 112: Negative or not required by law. Electronically signed by: Adrien Cruz M.D. 08/16/2020 6:51 AM ECG Additional Comments: 16-AUG-2020 05:39:18 [facility]-EDSTAT ROUTINE RETRIEVAL Poor data quality, interpretation may be adversely affected Suspect unspecified pacemaker failure Ventricular-paced rhythm Abnormal ECG When compared with ECG of 14-JUL-2020 11:36, Vent. rate has decreased BY 4 BPM 25mm/s 10mm/mV 150Hz 9.0.9 12SL 241 KARLA: 3 Referred by: REFERRED SELF Unconfirmed Vent. rate 73 BPM [place] interval * ms QRS duration 166 ms QT/QTc 468/515 ms Code Status & VTE Plan Code Status Full code-discussed with the patient at bedside VTE Prophylaxis Plan VTE Prophylaxis will be ordered: Yes Supervising Physician Co-Signing Physician Notes Attending addendum:, patient seen and examined in the ER, This is 74-year-old male with complex cardiac history with severe biventricular combined systolic and diastolic heart failure/CKD stage IV Multiple admissions in hospital secondary to decompensated CHF Presented with volume overload, increased weight gain, significant orthopnea dyspnea on exertion, in the ER noted to be hypoxemic, Chest x-ray shows extensive pulmonary vascular congestion Patient was given IV Lasix, Reports some improvement of respiratory symptoms, No complaint of chest pain or chest heaviness Has continued cough with whitish sputum Physical exam: General, chronically ill-appearing, obese. HEENT, difficult to assess JVP, Neck is supple Lungs auscultation, diffuse rales by laterally Abdomen: Soft distended Extremity: +1/2 bilateral pitting edema Neuro: No focal neurological deficit Acute hypoxemic respiratory failure: Secondary to decompensated CHF, recent echo showed ejection fraction of 30% with grade 2 diastolic dysfunction Started on supplemental O2, IV diuresis, patient reports improvement of shortness of breath after getting IV Lasix Acute decompensation of chronic biventricular respiratory failure Continue IV Lasix diuresis, Cordova catheter placed for accurate measurement for intake and output Patient had very recent echocardiogram, Cardiology consult requested Elevation of troponin Possible secondary to type II non-ST elevated WI/stress-induced secondary to hypoxemia decompensated CHF Serial cardiac marker orders, monitoring telemetry cardiology eval CKD stage IV Renal function at baseline, continue to monitor while getting IV diuresis CODE STATUS: Full code Patient referred to further documentation by Zonia Reed PA-C for discussion of other medical issues: Rocio Steel MD (1) CHF (congestive heart failure) Heart failure chronicity: acute on chronic Heart failure type: unspecified Qualified Code(s): I50.9 - Heart failure, unspecified (2) Pulmonary edema Chronicity: acute Qualified Code(s): J81.0 - Acute pulmonary edema
[2020-08-16 08:42] LABS: Magnesium 1.9 mg/dl (1.8-2.4)
[2020-08-16] MEDS ORDERED: DEXTROSE 50% 50 ML SYRINGE IV PRN (10:37)
[2020-08-16] MEDS ORDERED: CARBOHYDRATES FOR HYPOGLYCEMIA PO PRN (10:37)
[2020-08-16] MEDS ORDERED: GLUCOSE 10 TABS/TUBE PO PRN (10:37)
[2020-08-16] MEDS ORDERED: PANTOprazole 40 MG TAB PO PRN (10:37)
[2020-08-16] MEDS ORDERED: ALBUTEROL HFA 8 GM INHALER INH PRN (10:37)
[2020-08-16] MEDS ORDERED: GLUCOSE 40% GEL 15 GM TUBE PO PRN (10:37)
[2020-08-16] MEDS ORDERED: FUROSEMIDE 40 MG/4 ML VIAL IV SCH (10:37)
[2020-08-16] MEDS ORDERED: GLUCAGON FOR INJ 1 MG VIAL SQ PRN (10:37)
--- NOTE | 2020-08-16 11:24 | Cardiology Consultation ---
Date of Consultation August 16, 2020 Assessment & Plan (1) Hypokalemia: (2) Pulmonary edema: (3) CHF (congestive heart failure): (4) Elevated troponin: (5) History of ventricular fibrillation: (6) PAF (paroxysmal atrial fibrillation): (7) H/O mitral valve replacement: (8) H/O aortic valve replacement: (9) History of coronary artery bypass graft x 1: (10) CAD (coronary artery disease): RECOMMENDATIONS: IV furosemide 80 mg twice a day to start Supplement potassium orally Add hydralazine if blood pressure permits. No ACEI/ARB/Entresto/Aldactone, RE: Hyperkalemia with past use of both lisinopril and spironolactone, plus his degree of renal impairment. Device interrogation. He is aware that he may require replacement of the RV lead at the time of generator replacement. ? terminal superintendent placement. Further recommendations pending the above, evaluation by Dr. Guzmán, and his ongoing hospitalization. Supervising Physician Co-Signing Physician Notes Patient seen and examined with Bryson Michelle PA-C. Agree with findings and assessment as above. Again patient presents with worsening shortness of breath. He states this is very similar to his most recent admission approximately 4 weeks ago. Notes that he did not have oxygen supplied at home due to red tape with insurance company. We will diurese for now but should his breathing not significantly improved may require pulmonary treatment as well. History of Present Illness Reason for Consultation: Congestive heart failure Requesting Physician: Damián Attending Physician: Damián History of Present Illness Mr. Mynor Durham is a very pleasant yet extremely medically complex 74-year-old male who was recently admitted to [facility] with acute decompensated congestive heart failure and pneumonia. Following his most recent hospitalization at [facility] he was transferred to [facility] ([place] for rehabilitation where he stayed until August 10, 2020. After discharge from the [facility] he returned to his home environment where he struggled. He describes generalized weakness, acute on chronic dyspnea, decreased appetite. Notes device alarm x 2. Notes atypical chest discomfort, worse when sleeping on the right side. No overt angina. No tachypalpitations. Stable orthopnea. Stable abdominal bloating and lower extremity peripheral edema. No abrupt weight change noted at home though weight is elevated on presentation here. EKG on presentation to the ER revealed a ventricular paced rhythm. Chest x-ray showed progressive pulmonary edema with bilateral pleural effusions. Patient administered suppleme ntal oxygen therapy as well as IV furosemide with mild improvement noted. INR therapeutic, 2.5. Hypokalemia noted and supplemented orally. Stable renal dysfunction. NT proBNP elevated to 27,193. Initial troponin elevated at 0.053 ng/mL. Telemetry with a ventricular paced rhythm. Problem List: Valvular heart disease Bicuspid aortic valve, severe aortic valve stenosis, Status post bioprosthetic AVR in 2004. Aortic valve prosthesis stenosis and significant mitral regurgitation (flail A2 segment of the anterior mitral valve leaflet), status post July 21, 2013 redo sternotomy, redo AVR (23 mm Trifecta), chordal sparing mitral valve replacement with a 31 mm Magna ease valve, and coronary artery bypass grafting x1 with reverse saphenous vein from aorta to right coronary artery via endoscopic saphenous vein harvesting. Postoperative course complicated by bleeding requiring repair of a hole at the aortic valve suture line, paroxysmal atrial fibrillation, and a left bundle branch block Moderately severe LV systolic dysfunction, NYHA Class III congestive heart failure Status post August 31, 2014 biventricular ICD implantation by Dr. Sorensen. Recurrent symptomatic ventricular fibrillation arrests Paroxysmal atrial fibrillation and flutter. Chronic coumadin anticoagulation. Chronic renal insufficiency Obstructive sleep apnea Type II diabetes mellitus Monoallelic mutation of BRCA1 gene Gastroesophageal reflux disease without esophagitis Anemia of chronic disease Pernicious anemia Osteoarthritis Hypertension Dyslipidemia Obesity OBED, CPAP therapy Psoriasis Appendectomy Hospitalized at [facility] with transfer to [place] with acute decompensated systolic heart failure as while as NSTEMI November 24, 2019 to December 03, 2019. Hospitalized at [facility] ([facility]) on December 07, 2019 with chest discomfort and acute on chronic dyspnea attributed to acute decompensated systolic heart failure. He was treated with IV furosemide. Device interrogation revealed ventricular fibrillation arrest with resultant ICD discharge x2. He was transferred to [facility] for high risk cardiac catheterization. Technically difficult coronary angiography, summarized below, showed no obstructive coronary lesion to account for the patient's recent episodes of ventricular fibrillation. Medication recommendations/changes made at [facility] included titration of amiodarone to 400 mg 3 times per day x 2 weeks, titration of Toprol XL from 75 mg/day to 100 mg/day, and titration of atorvastatin from 40 mg/day to 80 mg/day. Hospitalized at [facility] December 30, 2019 to January 10, 2020 with an acute [place], significant troponin elevation to greater than 200 ng/mL, worsening LV systolic dysfunction (EF now 25 to 29%), acute decompensated systolic heart failure, acute renal dysfunction, hyperkalemia. Lisinopril 5 mg/day was held on discharge. Isosorbide was changed to 60 mg/day. Cymbalta 20 mg/day was added. All other prior to arrival medications were continued as prescribed. Discharge to [facility] 01/09 to 01/21/2020. Hospitalized at [facility] February 12, 2020 to February 14, 2020 after hearing and audible tone from his device. Interrogation revealed transient elevation in RV lead impedance. No further intervention was recommended by Dr. Iglesias. Patient discharged to home on his regular medication regimen. Hospitalized at [facility] July 14, 2020 to July 25, 2020, presenting with acute on chronic dyspnea felt to be secondary to community-acquired pneumonia and acute decompensated systolic congestive heart failure Family History: Father wtih an [place] at 64. Mother had stomach cancer. Social History: Nonsmoker. No smokeless tobacco use. No alcohol. No illegal drug use. Retired [employer]. Single. No children. Complete Review of Systems is as stated above, negative, or noncontributory. Allergies Allergy/AdvReac Type Severity Reaction Status Date / Time No Known Allergies Allergy Unverified 02/12/20 18:24 Home Medications Medication Instructions Recorded Confirmed Type albuterol sulfate 2 puff INHALATION QID PRN 12/07/19 08/16/20 History ascorbic acid (vitamin C) [Vitamin 500 mg PO BID 12/07/19 08/16/20 History C] clopidogrel 75 mg PO QAM 12/07/19 08/16/20 History docusate sodium 100 mg PO BID 12/07/19 08/16/20 History furosemide 80 mg PO QAM 12/07/19 08/16/20 History nitroglycerin 0.4 mg SUBLINGUAL DIRECTED PRN 12/07/19 08/16/20 History omeprazole 20 mg PO QAM PRN 12/07/19 08/16/20 History atorvastatin 80 mg PO QPM 12/30/19 08/16/20 History cyanocobalamin (vitamin B-12) 1,000 mcg IM MO 12/30/19 08/16/20 History magnesium oxide 400 mg PO DAILY 12/30/19 08/16/20 History metoprolol succinate 100 mg PO DAILY 12/30/19 08/16/20 History isosorbide mononitrate 60 mg PO QAM 30 Days #60 tab 01/06/20 08/16/20 Rx duloxetine 20 mg PO QAM 02/12/20 08/16/20 History cholecalciferol (vitamin D3) 125 mcg PO Q2D 07/14/20 08/16/20 History [Vitamin D3] furosemide 40 mg PO DAILY@1300 07/14/20 08/16/20 History insulin aspart U-100 [Novolog 8 unit SUBCUT AC #15 ml 07/25/20 08/16/20 Rx Flexpen U-100 Insulin] insulin degludec [Tresiba 15 unit SUBCUT QAM #15 ml 07/25/20 08/16/20 Rx FlexTouch U-100] warfarin 1.25 mg PO DAILY #20 tab 07/25/20 08/16/20 Rx amiodarone 200 mg PO DAILY 08/16/20 08/16/20 History Patient History Medical History Acute respiratory failure with hypoxia CAD (coronary artery disease) 07/2018: coronary artery bypass grafting x1 with reverse saphenous vein from aorta to right coronary artery via endoscopic saphenous vein harvesting; PCI to mid LAD with RIZWAN Chronic HFrEF (heart failure with reduced ejection fraction) Chronic kidney disease CKD (chronic kidney disease) stage 4, GFR 15-29 ml/min Diabetes mellitus, type 2 GERD (gastroesophageal reflux disease) History of ventricular fibrillation Hyperlipidemia Hypertension OBED on CPAP PAF (paroxysmal atrial fibrillation) Pernicious anemia Surgical History H/O aortic valve replacement Status post bioprosthetic AVR in 2004 Aortic valve prosthesis stenosis and mitral regurgitation requiring redo sternotomy jul 21 2013 with redo AVR and subsequent MVR. H/O mitral valve replacement History of appendectomy History of cardiac cath History of colonoscopy History of coronary artery bypass graft x 1 coronary artery bypass grafting x1 with reverse saphenous vein from aorta to right coronary artery via endoscopic saphenous vein harvesting. 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 Tachypneic. Pale. Skin: Pallor. Diffuse ecchymosis on upper extremities. HENT: Normocephalic. Atraumatic. Eyes: PER. Conjunctiva pink, sclera clear. Neck: No carotid bruits. + JVD. Heart: Regular at 76 bpm. Soft systolic murmur. PMI was not found. Lungs: Bibasilar rales. Diminished. Decreased. Abdomen: Obese. +BS. Soft. Nontender. No masses or organomegaly. Extremities: 1+ edema. No clubbing. No cyanosis. Limited neurological examination is without focal deficits. Pulses: radial=2/4, posterior tibial=1/4. Results & Data ([facility]) Vital Signs (Past 12 Hours) Vital Signs Temp Pulse Pulse Resp BP BP Pulse Ox 08/16/20 08:50 72 24 115/67 93 08/16/20 07:06 69 26 H 122/77 93 08/16/20 06:31 70 29 H 111/66 94 08/16/20 06:30 70 30 H 91 08/16/20 06:15 70 31 H 97 08/16/20 06:00 71 34 H 98 08/16/20 05:45 71 28 H 98 08/16/20 05:39 37.0 C 85 24 120/59 L 93 08/16/20 05:34 74 31 H 97 08/16/20 05:32 74 28 H 120/59 L 94 Laboratory Results Laboratory Results - last 24 hr 08/16/20 08/16/20 08/16/20 05:41 05:52 05:52 WBC 9.08 RBC 2.98 L Hgb 8.9 L Hct 27.4 L MCV 91.9 MCH 29.9 MCHC 32.5 RDW Std Deviation 53.2 H RDW Coeff of Rosio 15.6 H Plt Count 247 MPV 11.4 H Immature Gran % (Auto) 0.2 Neut % (Auto) 75.2 Lymph % (Auto) 12.1 [place] % (Auto) 9.9 Eos % (Auto) 2.5 Baso % (Auto) 0.1 Neut # (Auto) 6.82 H Lymph # (Auto) 1.10 L [place] # (Auto) 0.90 H Eos # (Auto) 0.23 Baso # (Auto) 0.01 Immature Gran # (Auto) 0.02 PT 23.3 H INR 2.5 H APTT 40.4 H PTT Ratio 1.5 Sodium Potassium Chloride Carbon Dioxide Anion Gap BUN Creatinine Est Cr Clr Drug Dosing Est GFR ( Amer) Est GFR (Non-Af Amer) BUN/Creatinine Ratio Glucose Calcium Magnesium 1.9 Total Bilirubin AST ALT Alkaline Phosphatase Troponin I NT-Pro-B Natriuret Pep 16812 H Total Protein Albumin Globulin Albumin/Globulin Ratio COVID-19 Eval Order SARS-CoV-2 (PCR) 08/16/20 08/16/20 08/16/20 05:52 05:52 07:25 WBC RBC Hgb Hct MCV MCH MCHC RDW Std Deviation RDW Coeff of Rosio Plt Count MPV Immature Gran % (Auto) Neut % (Auto) Lymph % (Auto) [place] % (Auto) Eos % (Auto) Baso % (Auto) Neut # (Auto) Lymph # (Auto) [place] # (Auto) Eos # (Auto) Baso # (Auto) Immature Gran # (Auto) PT Cancelled INR Cancelled APTT PTT Ratio Sodium 138 Potassium 3.1 L Chloride 104 Carbon Dioxide 26 Anion Gap 8.0 BUN 27 H Creatinine 1.72 H Est Cr Clr Drug Dosing 48.1 Est GFR ( Amer) 44.7 Est GFR (Non-Af Amer) 38.6 BUN/Creatinine Ratio 15.5 Glucose 166 H Calcium 8.2 L Magnesium Total Bilirubin 1.0 AST 19 ALT 19 Alkaline Phosphatase 77 Troponin I 0.053 H* NT-Pro-B Natriuret Pep Total Protein 6.9 Albumin 2.6 L Globulin 4.3 H Albumin/Globulin Ratio 0.6 L COVID-19 Eval Order Covid19 at [facility] SARS-CoV-2 (PCR) 08/16/20 07:25 WBC RBC Hgb Hct MCV MCH MCHC RDW Std Deviation RDW Coeff of Rosio Plt Count MPV Immature Gran % (Auto) Neut % (Auto) Lymph % (Auto) [place] % (Auto) Eos % (Auto) Baso % (Auto) Neut # (Auto) Lymph # (Auto) [place] # (Auto) Eos # (Auto) Baso # (Auto) Immature Gran # (Auto) PT INR APTT PTT Ratio Sodium Potassium Chloride Carbon Dioxide Anion Gap BUN Creatinine Est Cr Clr Drug Dosing Est GFR ( Amer) Est GFR (Non-Af Amer) BUN/Creatinine Ratio Glucose Calcium Magnesium Total Bilirubin AST ALT Alkaline Phosphatase Troponin I NT-Pro-B Natriuret Pep Total Protein Albumin Globulin Albumin/Globulin Ratio COVID-19 Eval Order SARS-CoV-2 (PCR) NEGATIVE Diagnostic Findings December 09, 2019 [place] [place] Short aortic root and b/l SC tortuosity made coronary arteriography by radial access very difficult. Could not engage via right radial access and had to switch to left radial access. Left system engaged with JL4 and SVG to RCA with MP-2. Prior LAD stents with mild ISR, prox segment with 40%, apical LAD with 40% stenosis .LCx has 30% mid stenosis. LMCA is normal. [place] RCA was not imaged due to contrast issues but ostially severely diseases (99%). SVG to RCA is patent. RCA is mildly disease No obstructive coronary lesion to account for the patient's recent episode of ventricular fibrillation. RCA chronically occluded at its ostium with the distal sizeable branches filling via a patent SVG. Left main, circumflex with mild diffuse disease. Patent stents in the proximal and mid LAD without significant restenosis. Technically difficult procedure from the right radial approach; less difficult from the left radial artery. July 15, 2020 TTE Interpretation Summary ([facility], Dr. Guzmán): No significant change compared to the most recent echo of December 31, 2019. Mildly dilated LV chamber size. Mild concentric LVH. Severely reduced LV systolic function. EF 25 to 30%. Basal inferior and posterior segments are severely hypokinetic to akinetic. [place] severely hypokinetic to akinetic. Otherwise, moderate global hypokinesis. Grade 2 diastolic dysfunction. Appropriately functioning aortic and mitral valve bioprosthesis. Significant pulmonary hypertension present; PA systolic pressure 62 mmHg assuming a right atrial pressure 3 mmHg. July 17, 2020 Device Interrogation: Appropriate function. Remaining longevity: 2 months. No atrial or ventricular arrhythmias. BiV paced 98.8%. OptiVol 2.0 fluid index above threshold. (1) CHF (congestive heart failure) Heart failure chronicity: acute on chronic Heart failure type: unspecified Qualified Code(s): I50.9 - Heart failure, unspecified (2) Pulmonary edema Chronicity: acute Qualified Code(s): J81.0 - Acute pulmonary edema
[2020-08-16] MEDS ORDERED: INSULIN ASPART 100 UNITS/ML 3 ML PEN SQ SCH (11:30)
[2020-08-16] MEDS: ASCORBIC ACID 500 MG TAB PO SCH ×2 (12:18→20:47)
[2020-08-16] MEDS: ISOSORBIDE MONO EXTENDED REL 60 MG TABCR PO SCH (12:18)
[2020-08-16] MEDS: MAGNESIUM OXIDE 400 MG TAB PO SCH (12:18)
[2020-08-16] MEDS: DOCUSATE SODIUM 100 MG CAP PO SCH ×2 (12:18→20:47)
[2020-08-16] MEDS: CLOPIDOGREL BISULFATE 75 MG TAB PO SCH (12:18)
[2020-08-16] MEDS: METOPROLOL SUCC 50MG EXT REL TAB PO SCH (12:18)
[2020-08-16] MEDS: AMIODARONE 200 MG TAB PO SCH (12:19)
[2020-08-16] MEDS: ASPIRIN 81 MG ECTAB PO SCH (12:19)
[2020-08-16] MEDS: FUROSEMIDE 80 MG in SYRINGE 0 ML IV SCH ×2 (12:19→17:18)
[2020-08-16] MEDS: DULoxetine HCL 20 MG CAP PO SCH (12:19)
[2020-08-16] MEDS: INSULIN GLARGINE SOLOSTAR 100 UNITS/ML 3 ML PEN SC SCH (12:20)
[2020-08-16] MEDS: INSULIN ASPART 100 UNITS/ML 3 ML PEN SC SCH ×3 (12:24→20:56)
[2020-08-16] MEDS ORDERED: MICONAZOLE NITRATE POWDER 43 GM EXT PRN (12:54)
[2020-08-16] MEDS ORDERED: Nursing to Pharmacy Communication SCH (13:00)
--- NOTE | 2020-08-16 15:30 | Electrocardiogram Report ---
Test Reason : Blood Pressure : / mmHG Vent. Rate : 073 BPM Atrial Rate : 234 BPM P-R Int : 000 ms QRS Dur : 166 ms QT Int : 468 ms P-R-T Axes : 049 262 062 degrees QTc Int : 515 ms Poor data quality, interpretation may be adversely affected Ventricular-paced rhythm Biventricular pacemaker detected Abnormal ECG When compared with ECG of 14-JUL-2020 11:36, Vent. rate has decreased BY 4 BPM Confirmed by Feliz Alvarado ([id number]) on 08/16/2020 3:30:43 PM Referred By: REFERRED SELF Confirmed By:Feliz Alvarado
[2020-08-16] MEDS: WARFARIN SOD 1.25 MG TAB PO SCH (17:18)
[2020-08-16] MEDS: ATORVASTATIN 40 MG TAB PO SCH (20:47)
[2020-08-16] MEDS: MICONAZOLE NITRATE POWDER 43 GM EXT SCH (20:48)
[2020-08-17 06:16] LABS: Hematocrit (blood only) 27.4 % (42-52); Hemoglobin 8.8 g/dL (14.0-18.0); Mean Corpuscular Hemoglobin 29.7 pg (25-34); Mean Corpuscular Hgb Conc 32.1 g/dL (32-36); Mean Corpuscular Volume 92.6 fL (80-100); Mean Platelet Volume 11.5 fL (7.4-10.4); Platelet Count 270 K/uL (130-400); RDW Coefficient of Variation 15.7 % (11.5-14.5); RDW Standard Deviation 53.2 fL (36.4-46.3); Red Blood Count 2.96 M/uL (4.7-6.1)
[2020-08-17 06:49] LABS: INR 2.7 (0.9-1.1); Prothrombin Time 25.4 Seconds (9.0-12.0)
[2020-08-17 06:51] LABS: Albumin Level 2.4 gm/dl (3.4-5.0); BUN Creatinine Ratio 17.1 (10-20); Calcium 8.5 mg/dl (8.5-10.1); Creatinine Clr Calc Pharmacy 43.8 ml/min; Est GFR (Non-African American) 35.3 ml/min; Potassium 3.5 mmol/L (3.5-5.1)
[2020-08-17 06:54] LABS: Albumin Globulin Ratio 0.5 (0.9-2); Globulin 4.4 gm/dl (2.5-4.0); Total Protein 6.8 gm/dl (6.4-8.2)
[2020-08-17] MEDS: FUROSEMIDE 80 MG in SYRINGE 0 ML IV SCH ×2 (07:39→17:17)
--- NOTE | 2020-08-17 08:13 | XRay Report ---
XR chest 1V portable CLINICAL HISTORY: Shortness of breath COMPARISON STUDY: 08/16/2020 FINDINGS: The heart is enlarged. There is a left subclavian pacer/defibrillator. There are postsurgic al changes of a midline sternotomy and valvular replacement. There is radiographic evidence of pulmon carin edema with bilateral pleural effusions.[ IMPRESSION: Persistent pulmonary edema pattern with cardiomegaly and bilateral pleural effusions ACT 112: Negative or not required by law. Electronically signed by: Adrien Cruz M.D. 08/17/2020 8:12 AM
[2020-08-17] MEDS: INSULIN ASPART 100 UNITS/ML 3 ML PEN SC SCH ×4 (08:48→21:05)
[2020-08-17] MEDS: INSULIN GLARGINE SOLOSTAR 100 UNITS/ML 3 ML PEN SC SCH (08:49)
[2020-08-17] MEDS: AMIODARONE 200 MG TAB PO SCH (08:51)
[2020-08-17] MEDS: CHOLECALCIFEROL 1,000 UNITS 25 MCG TAB PO SCH (08:51)
[2020-08-17] MEDS: ASPIRIN 81 MG ECTAB PO SCH (08:51)
[2020-08-17] MEDS: ASCORBIC ACID 500 MG TAB PO SCH ×2 (08:51→21:00)
[2020-08-17] MEDS: METOPROLOL SUCC 50MG EXT REL TAB PO SCH (08:52)
[2020-08-17] MEDS: MAGNESIUM OXIDE 400 MG TAB PO SCH (08:52)
[2020-08-17] MEDS: DOCUSATE SODIUM 100 MG CAP PO SCH ×2 (08:52→21:00)
[2020-08-17] MEDS: DULoxetine HCL 20 MG CAP PO SCH (08:52)
[2020-08-17] MEDS: CLOPIDOGREL BISULFATE 75 MG TAB PO SCH (08:52)
[2020-08-17] MEDS: ISOSORBIDE MONO EXTENDED REL 60 MG TABCR PO SCH (08:52)
[2020-08-17] MEDS: MICONAZOLE NITRATE POWDER 43 GM EXT SCH ×2 (08:53→21:00)
--- NOTE | 2020-08-17 15:43 | Electrocardiogram Report ---
Test Reason : Blood Pressure : / mmHG Vent. Rate : 070 BPM Atrial Rate : 070 BPM P-R Int : 100 ms QRS Dur : 156 ms QT Int : 494 ms P-R-T Axes : -16 -80 030 degrees QTc Int : 533 ms Atrial-sensed ventricular-paced rhythm Biventricular pacemaker detected Abnormal ECG When compared with ECG of 16-AUG-2020 05:39, Vent. rate has decreased BY 3 BPM Confirmed by Feliz Alvarado ([id number]) on 08/17/2020 3:43:10 PM Referred By: REFERRED SELF Confirmed By:Feliz Alvarado
--- NOTE | 2020-08-17 16:25 | Hospitalist Progress Note ---
Date of Service August 17, 2020 Assessment & Plan (1) Acute respiratory failure with hypoxemia: Presented with acute hypoxemic respiratory failure secondary to pulmonary edema caused by decompensated CHF with ischemic cardiomyopathy biventricular heart failure. Patient requiring supplemental O2, currently on BiPAP, started on aggressive diuresis with 80 mg IV twice daily, Monitor intake and outtake very closely, cardiology following closely Acute decompensated CHF with combined systolic and diastolic dysfunction: Presented with volume overload, hypoxemia with's severe pulmonary congestion, elevated proBNP volume overload Recent admission with similar symptoms, recent echo shows EF of 30-35% with ischemic cardiomyopathy. 1 diastolic dysfunction Cardiology input appreciated, recommends to continue with IV Lasix Not a candidate for ASIA or ARB or Aldactone for history of hyperkalemia. Continue to monitor volume status (2) CAD (coronary artery disease): -History of coronary bypass completed in 2014 -Continue beta-varsha, atorvastatin, Plavix Presents with acute hypoxemic respiratory failure secondary to decompensated CHF No evidence of acute coronary event, mild elevation of troponin could be secondary to demand ischemia/ Does not appear to be an acute coronary event, cardiology eval appreciated (3) Elevated troponin: Possible type II non-ST elevated SD/demand ischemia Intermittent chest pain chest discomfort possibly secondary to decompensated CHF No evidence of acute coronary event or plaque rupture, cardiology eval appreciated Management of decompensated CHF with aggressive diuresis as outlined above (4) Hypertension: -On Lasix 80 mg IV twice daily, continue Imdur (5) Hyperlipidemia: -Statin therapy (6) PAF (paroxysmal atrial fibrillation): -Remains rate controlled, continue with amiodarone, On Coumadin for chronic anticoagulation (7) H/O mitral valve replacement: - s/p replacement in 2013 Recent echo showed normal functioning bioprosthetic mitral valve (8) H/O aortic valve replacement: - s/p replacement in 2013 Recent echo showed normal functioning bioprosthetic mitral valve (9) History of coronary artery bypass graft x 1: Present with mild elevation troponin, intermittent chest discomfort secondary to decompensated CHF Chest heaviness discomfort resolved after continue diuresis No cardiac intervention needed, outpatient cardiac meds continued (10) Pernicious anemia: -Hemoglobin appears to be at baseline - Continue iron supplementation (11) CKD (chronic kidney disease) stage 4, GFR 15-29 ml/min: - Baseline of 1.7-1.8, creatinine remains baseline, continue to monitor daily BMP as patient is receiving diuresis (12) Diabetes mellitus, type 2: - uses insulin NovoLog 8 units subcu AC and Tresiba 15 units daily -Continue ISS with Accu-Chemegan MINS - A1C = 6.8 on 07/15/20 -Allow diabetic/HH diet (13) Hypokalemia: Potassium replaced, Follow BMP (14) DVT prophylaxis: -On Coumadin INR therapeutic CODE: Full code Dispo: Patient was recently discharged from rehab, readmitted to [facility] within 48 hours for decompensated CHF, acute hypoxemic respiratory failure due to pulmonary edema. PT OT evaluation requested Patient was not on home oxygen in the past, will need home oxygen arrangement/evaluation prior to discharge Patient's given update over phone Admission and Anticipated Discharge Date Admission Date: August 16, 2020 Subjective Follow-up visit for acute hypoxemic respiratory failure secondary to pulmonary edema caused by acute on chronic decompensated CHF/biventricular heart failure. Patient reports shortness of breath still remains the same, persistent orthopnea, was hypoxic earlier this morning placed on BiPAP Cough has improved no fever or chills denies of any chest pain or chest heavin ess Review of Systems Review of Systems: All systems reviewed & are unremarkable except as noted in Subjective Physical Exam Constitutional: WD/WN, vitals as above + obese Eyes: + anicteric sclerae ENMT: external ear and nose normal, oropharynx normal Neck: normal visual inspection Respiratory: Auscultation: + diminished lung sounds, + crackles and + rales; no wheezes Cardiovascular: Rate/Rhythm: regular rate and regular rhythm Extremities: + pedal edema and + edema Gastrointestinal (Abdomen): Percussion/Palpation: abdomen soft; abdomen nontender and no ascites Skin: no rashes, warm and dry Neurologic: PERRL, EOMI, accommodation nl, no face palsy, no dysarthria Psychiatric: A+Ox3, euthymic affect Results & Data Results & Data ([facility]) Vital Signs (Past 12 Hours) Vital Signs Temp Pulse Resp BP Pulse Ox 08/17/20 15:18 36.9 C 69 28 H 127/70 99 08/17/20 11:14 37.0 C 67 26 H 137/66 94 08/17/20 07:25 37.0 C 70 26 H 119/94 89 L
--- NOTE | 2020-08-17 16:58 | Cardiology Progress Note ---
Date of Service August 17, 2020 Assessment & Plan (1) Hypokalemia: (2) Pulmonary edema: (3) CHF (congestive heart failure): (4) Elevated troponin: (5) History of ventricular fibrillation: (6) PAF (paroxysmal atrial fibrillation): (7) H/O mitral valve replacement: (8) H/O aortic valve replacement: (9) History of coronary artery bypass graft x 1: (10) CAD (coronary artery disease): DiarrheaGiven his lack of clinical improvement since I believe there is an active pulmonary process. Recommend asking our pulmonary colleagues to evaluate the patient. Would continue with IV diuretics for another 24 hours and follow. Supplement potassium orally Add hydralazine if blood pressure permits. No ACEI/ARB/Entresto/Aldactone, RE: Hyperkalemia with past use of both lisinopril and spironolactone, plus his degree of renal impairment. Device interrogation. He is aware that he may require replacement of the RV lead at the time of generator replacement. ? snf placement. Admission and Anticipated Discharge Date Admission Date: August 16, 2020 Subjective Patient seen and examined, chart reviewed. States his breathing is not improved at all since admission despite diuresis. Denies chest pain, palpitations or lightheadedness. Telemetry reviewed: Ventricularly paced rhythm. Review of Systems Review of Systems: All systems reviewed & are unremarkable except as noted in HPI & below Physical Exam Physical Exam: General: Awake, alert and oriented x 3. No acute distress. HEENT: Normocephalic, atraumatic. Pupils equal, round and reactive to light and accommodation. Extraocular muscles are intact. Anicteric sclera. Moist mucous membranes. Neck: No JVD. No bruit. Cardiovascular: Regular. Positive S-4. Normal S-1 and S-2. No S-3. 3/6 mid to late systolic ejection murmur, greatest at the right sternal border, second intercostal space with radiation to the bilateral carotids. No rubs. Pulmonary: Coarse breath sounds diffusely with scattered rhonchi and wheezing. Abdomen: Bowel sounds x 4, soft. No rebound, guarding or tenderness. No organomegaly. Extremities: No clubbing, cyanosis or edema. +2 pedal pulses bilaterally. Skin: Warm and dry. Results & Data ([facility]) Vital Signs (Past 12 Hours) Vital Signs Temp Pulse Resp BP Pulse Ox 08/17/20 15:18 36.9 C 69 28 H 127/70 99 08/17/20 11:14 37.0 C 67 26 H 137/66 94 08/17/20 07:25 37.0 C 70 26 H 119/94 89 L (1) Pulmonary edema Chronicity: acute Qualified Code(s): J81.0 - Acute pulmonary edema (2) CHF (congestive heart failure) Heart failure chronicity: acute on chronic Heart failure type: unspecified Qualified Code(s): I50.9 - Heart failure, unspecified
[2020-08-17] MEDS: WARFARIN SOD 1.25 MG TAB PO SCH (17:17)
[2020-08-17] MEDS: ATORVASTATIN 40 MG TAB PO SCH (21:00)
[2020-08-18 07:10] LABS: Hematocrit (blood only) 27.3 % (42-52); Hemoglobin 8.7 g/dL (14.0-18.0); Mean Corpuscular Hemoglobin 29.8 pg (25-34); Mean Corpuscular Hgb Conc 31.9 g/dL (32-36); Mean Corpuscular Volume 93.5 fL (80-100); Mean Platelet Volume 11.4 fL (7.4-10.4); Platelet Count 252 K/uL (130-400); RDW Coefficient of Variation 15.8 % (11.5-14.5); RDW Standard Deviation 53.7 fL (36.4-46.3); Red Blood Count 2.92 M/uL (4.7-6.1); White Blood Count 11.73 K/uL (4.8-10.8)
[2020-08-18 07:27] LABS: Albumin Level 2.3 gm/dl (3.4-5.0); BUN Creatinine Ratio 20.4 (10-20); Calcium 8.5 mg/dl (8.5-10.1); Creatinine Clr Calc Pharmacy 42.8 ml/min; Est GFR (African American) 39.9 ml/min; Est GFR (Non-African American) 34.4 ml/min; INR 3.8 (0.9-1.1); Potassium 3.6 mmol/L (3.5-5.1); Prothrombin Time 34.6 Seconds (9.0-12.0)
[2020-08-18 07:31] LABS: Albumin Globulin Ratio 0.5 (0.9-2); Bilirubin,Total 0.9 mg/dl (0.2-1); Globulin 4.3 gm/dl (2.5-4.0); Total Protein 6.6 gm/dl (6.4-8.2)
[2020-08-18] MEDS: ISOSORBIDE MONO EXTENDED REL 60 MG TABCR PO SCH (08:07)
[2020-08-18] MEDS: CLOPIDOGREL BISULFATE 75 MG TAB PO SCH (08:07)
[2020-08-18] MEDS: METOPROLOL SUCC 50MG EXT REL TAB PO SCH (08:08)
[2020-08-18] MEDS: MAGNESIUM OXIDE 400 MG TAB PO SCH (08:08)
[2020-08-18] MEDS: ASPIRIN 81 MG ECTAB PO SCH (08:08)
[2020-08-18] MEDS: ASCORBIC ACID 500 MG TAB PO SCH ×2 (08:08→20:53)
[2020-08-18] MEDS: DOCUSATE SODIUM 100 MG CAP PO SCH ×2 (08:08→20:53)
[2020-08-18] MEDS: AMIODARONE 200 MG TAB PO SCH (08:08)
[2020-08-18] MEDS: DULoxetine HCL 20 MG CAP PO SCH (08:08)
[2020-08-18] MEDS: INSULIN ASPART 100 UNITS/ML 3 ML PEN SC SCH ×4 (08:08→21:00)
[2020-08-18] MEDS: INSULIN GLARGINE SOLOSTAR 100 UNITS/ML 3 ML PEN SC SCH (08:09)
[2020-08-18] MEDS: MICONAZOLE NITRATE POWDER 43 GM EXT SCH ×2 (08:09→20:54)
[2020-08-18] MEDS: FUROSEMIDE 80 MG in SYRINGE 0 ML IV SCH (09:53)
--- NOTE | 2020-08-18 13:12 | Pulmonary Consultation ---
Date of Consultation August 18, 2020 Assessment & Plan (1) Acute and chronic respiratory failure with hypoxia: Chest x-ray 08/17/2020 personally reviewed: Portable film, bilateral costophrenic and cardiophrenic angles are blunted, increased cardiac silhouette, AICD appreciated. Patchy opacities of the lower bilaterally. Increase pulmonary vascular congestion 2D echo July 15, 2020: EF 25-30%, grade 2 diastolic dysfunction, PASP 62. Moderate global hypokinesis --Acute on chronic hypoxic respiratory failure Likely secondary to systolic but diastolic CHF on top of CKD BNP 27,000 COVID-19 negative Continue with diuretics Continue with O2 supplementation to keep O2 saturation between 88-92% Recommend BiPAP 14/8 40% when he short of breath. Patient is on amiodarone 200 mg on a daily basis. Amiodarone induced lung toxicity can be seen in patients, but with BNP of greater than 27,000 I would recommend diuresis first and if there is no response then will think about CT chest --OBED Continue with CPAP at night --Pulmonary hypertension Type II Treatment as above Plan: Continue with aggressive diuretics. Keep the patient negative balance. Patient is currently on Lasix 80 mg twice daily. Consideration for metolazone should be thought of Patient is on CPAP at home. Patient who are in CHF exacerbation, BiPAP might be beneficial as it will increase the transmural myocardial pressure and help with EF as well No indication for steroids looking at current clinical picture. Case was discussed with Dr. Guzmán and Dr. Steel Please note the above document was generated using voice recognition software. It may contain grammatical, syntax or spelling errors.Any formal questions or concerns about the content, text or information contained within the body of this dictation should be directly addressed to the provider for clarification. (2) OBED (obstructive sleep apnea): (3) Pulmonary edema: Chronicity: acute Qualified Code(s): J81.0 - Acute pulmonary edema (4) CHF (congestive heart failure): Heart failure chronicity: acute on chronic Heart failure type: unspecified Qualified Code(s): I50.9 - Heart failure, unspecified (5) Pulmonary hypertension: History of Present Illness Attending Physician: Rocio Steel MD History of Present Illness 74-year-old male past medical history of ischemic cardiomyopathy, chronic hypoxic respiratory failure on 2 L nasal cannula, coronary artery disease s/p CABG and angioplasty, biventricular AICD, systolic CHF, paroxysmal A. fib on warfarin, hypertension, OBED on CPAP,, CKD stage III GERD was admitted to the hospital because of shortness of breath gettin worse since last couple of weeks. Patient was supposed to get oxygen at home but it was not delivered when he was discharged from the rehab. Patient has had recent admission at [facility] last being 07/14/20 - 07/25/20 At the time of examination patient was saturating 93-94% on 4 liters nasal cannula She was getting he was getting short of breath on talking at the end of the sentence. He denies any fever or chills. No dysuria, no diarrhea. He denies any chest pain. States that he is compliant with his medications. Does complain of cough which is dry. Not bringing up any phlegm. Denies any recent upper respirator tract infections. Patient denies any personal history of asthma. Social history: Non-smoker. Allergies Allergy/AdvReac Type Severity Reaction Status Date / Time No Known Allergies Allergy Unverified 02/12/20 18:24 Home Medications Medication Instructions Recorded Confirmed Type albuterol sulfate 2 puff INHALATION QID PRN 12/07/19 08/16/20 History ascorbic acid (vitamin C) [Vitamin 500 mg PO BID 12/07/19 08/16/20 History C] clopidogrel 75 mg PO QAM 12/07/19 08/16/20 History docusate sodium 100 mg PO BID 12/07/19 08/16/20 History furosemide 80 mg PO QAM 12/07/19 08/16/20 History nitroglycerin 0.4 mg SUBLINGUAL DIRECTED PRN 12/07/19 08/16/20 History omeprazole 20 mg PO QAM PRN 12/07/19 08/16/20 History atorvastatin 80 mg PO QPM 12/30/19 08/16/20 History cyanocobalamin (vitamin B-12) 1,000 mcg IM MO 12/30/19 08/16/20 History magnesium oxide 400 mg PO DAILY 12/30/19 08/16/20 History metoprolol succinate 100 mg PO DAILY 12/30/19 08/16/20 History isosorbide mononitrate 60 mg PO QAM 30 Days #60 tab 01/06/20 08/16/20 Rx duloxetine 20 mg PO QAM 02/12/20 08/16/20 History cholecalciferol (vitamin D3) 125 mcg PO Q2D 07/14/20 08/16/20 History [Vitamin D3] furosemide 40 mg PO DAILY@1300 07/14/20 08/16/20 History insulin aspart U-100 [Novolog 8 unit SUBCUT AC #15 ml 07/25/20 08/16/20 Rx Flexpen U-100 Insulin] insulin degludec [Tresiba 15 unit SUBCUT QAM #15 ml 07/25/20 08/16/20 Rx FlexTouch U-100] warfarin 1.25 mg PO DAILY #20 tab 07/25/20 08/16/20 Rx amiodarone 200 mg PO DAILY 08/16/20 08/16/20 History Patient History Medical History Acute respiratory failure with hypoxia CAD (coronary artery disease) 07/2018: coronary artery bypass grafting x1 with reverse saphenous vein from aorta to right coronary artery via endoscopic saphenous vein harvesting; PCI to mid LAD with RIZWAN Chronic HFrEF (heart failure with reduced ejection fraction) Chronic kidney disease CKD (chronic kidney disease) stage 4, GFR 15-29 ml/min Diabetes mellitus, type 2 GERD (gastroesophageal reflux disease) History of ventricular fibrillation Hyperlipidemia Hypertension OBED on CPAP PAF (paroxysmal atrial fibrillation) Pernicious anemia Surgical History H/O aortic valve replacement Status post bioprosthetic AVR in 2004 Aortic valve prosthesis stenosis and mitral regurgitation requiring redo sternotomy jul 21 2013 with redo AVR and subsequent MVR. H/O mitral valve replacement History of appendectomy History of cardiac cath History of colonoscopy History of coronary artery bypass graft x 1 coronary artery bypass grafting x1 with reverse saphenous vein from aorta to right coronary artery via endoscopic saphenous vein harvesting. History of heart artery stent History of heart valve replacement ICD (implantable cardioverter-defibrillator) in place Family History Father Heart disease HI @ age 64 Mother , age 34, stomach ca Cancer Social History Smoking Status: Never smoker Second Hand Exposure: No; Hx Alcohol Use: Yes Hx Substance Use: No Preferred Language: Austrian Communication Ability: Effective Marketing Team Lead Required: No Beliefs That Will Affect Care: None marital status: Single Current Living Situation: Alone current occupation: retired Other Information That Helps Us Care for You: No Feels Safe at Home: Yes Safety Concerns: Feels Safe At This Time Assistive Devices: Oxygen - Continuous Review of Systems Review of Systems: All systems reviewed & are unremarkable except as noted in HPI & below Physical Exam Physical Exam: Constitutional: Mild respiratory distress HEENT: EOMI, PERRLA Respiratory system: Decreased air entry bilaterally, no wheeze, no rhonchi, positive crackles bilaterally CVS: S1-S2 positive, positive AICD Abdomen: Soft, nontender, nondistended, positive bowel sounds x4, obese Extremities: +2 pulses bilaterally radialis/ dorsalis pedis, no cyanosis, +1 pitting edema bilateral lower extremity Neuro: Awake alert oriented x3 Psych: Normal mood and affect G/U: Positive Matthews Skin: no rashes, warm and dry Lymphatic: no cervical or axillary lymphadenopathy Results & Data Results & Data ([facility]) Vital Signs (Past 12 Hours) Vital Signs Temp Pulse Pulse Resp BP Pulse Ox 08/18/20 11:18 36.5 C 72 22 102/59 L 91 08/18/20 08:04 26 H 91 08/18/20 08:00 73 08/18/20 07:15 36.4 C L 68 18 126/86 99 08/18/20 02:40 36.8 C 66 18 150/97 H 96 08/18/20 06:26 08/18/20 06:26 PG Care Time/CCT Total # of Minutes Spent Total Time Spent with Patient: Total time spent is greater than 50% in coordination of care (as documented) at patient's floor/unit and/or counseling patient: Coding Level of Care Code 89990 Initial Inpt Care Lvl 3 Diagnoses Acute and chronic respiratory failure with hypoxia J96.21 OBED (obstructive sleep apnea) G47.33 Pulmonary edema J81.0 Chronicity: acute CHF (congestive heart failure) I50.9 Heart failure chronicity: acute on chronic Heart failure type: unspecified Pulmonary hypertension I27.20
--- NOTE | 2020-08-18 13:36 | Hospitalist Progress Note ---
Date of Service August 18, 2020 Assessment & Plan (1) Acute respiratory failure with hypoxemia: Presented with acute hypoxemic respiratory failure secondary to pulmonary edema caused by decompensated CHF with ischemic cardiomyopathy biventricular heart failure. Was started on IV Lasix 80 mg twice daily, remains persistently hypoxic, I's and O's shows patient still on positive volume of 300 mL Ordered to IV Lasix, started on IV Lasix drip Pulmonology consulted, Case discussed with pulmonology: Feels patient's persistent respiratory failure/hypoxemia could be due to pulmonary congestion/volume overload, agrees with IV Lasix drip, suggest addition of metolazone if patient still remains on positive volume status. Pulmonology order to place patient on BiPAP continuous Repeat chest x-ray in a.m. Acute decompensated CHF with combined systolic and diastolic dysfunction: Presented with volume overload, hypoxemia with's severe pulmonary congestion, elevated proBNP volume overload Recent admission with similar symptoms, recent echo shows EF of 30-35% with ischemic cardiomyopathy. 1 diastolic dysfunction Cardiology input appreciated, Started on IV Lasix drip/patient is ordered for fluid restriction 1800 mL a day Not a candidate for ASIA or ARB or Aldactone for history of hyperkalemia. Continue to monitor volume status (2) CAD (coronary artery disease): -History of coronary bypass completed in 2014 -Continue beta-varsha, atorvastatin, Plavix Presents with acute hypoxemic respiratory failure secondary to decompensated CHF No evidence of acute coronary event, mild elevation of troponin could be s econdary to demand ischemia/ Does not appear to be an acute coronary event, cardiology eval appreciated (3) Elevated troponin: Possible type II non-ST elevated FL/demand ischemia Intermittent chest pain chest discomfort possibly secondary to decompensated CHF No evidence of acute coronary event or plaque rupture, cardiology eval appreciated Management of decompensated CHF with aggressive diuresis as outlined above (4) Hypertension: Started on IV Lasix drip, will hold Imdur as patient remains borderline hypotensive (5) Hyperlipidemia: -Statin therapy (6) PAF (paroxysmal atrial fibrillation): -Remains rate controlled, continue with amiodarone, On Coumadin for chronic anticoagulation (7) H/O mitral valve replacement: - s/p replacement in 2013 Recent echo showed normal functioning bioprosthetic mitral valve (8) H/O aortic valve replacement: - s/p replacement in 2013 Recent echo showed normal functioning bioprosthetic mitral valve (9) History of coronary artery bypass graft x 1: Present with mild elevation troponin, intermittent chest discomfort secondary to decompensated CHF Chest heaviness discomfort resolved after continue diuresis No cardiac intervention needed, outpatient cardiac meds continued (10) Pernicious anemia: -Hemoglobin appears to be at baseline - Continue iron supplementation (11) CKD (chronic kidney disease) stage 4, GFR 15-29 ml/min: - Baseline of 1.7-1.8, creatinine remains baseline, continue to monitor daily BMP as patient is receiving diuresis To hold Imdur, while on IV Lasix drip to prevent hypotension which can worsen kidney function, avoid NSAIDs and contrast studies (12) Diabetes mellitus, type 2: - uses insulin NovoLog 8 units subcu AC and Tresiba 15 units daily -Continue ISS with Accu-Cheks ACHS - A1C = 6.8 on 07/15/20 -Allow diabetic/HH diet (13) Hypokalemia: Potassium replaced, Follow BMP (14) DVT prophylaxis: -On Coumadin INR therapeutic CODE: Full code Dispo: Patient was recently discharged from rehab, readmitted to [facility] within 48 hours for decompensated CHF, acute hypoxemic respiratory failure due to pulmonary edema. PT OT evaluation requested Patient was not on home oxygen in the past, will need home oxygen arrangement/evaluation prior to discharge Patient's given update over phone Admission and Anticipated Discharge Date Admission Date: August 16, 2020 Subjective Follow-up visit for acute hypoxemic respiratory failure secondary to pulmonary edema caused by acute on chronic decompensated CHF/biventricular heart failure. Patient remains hypoxic requiring 4 L oxygen by nasal cannula, Not much improvement of orthopnea, or shortness of breath, no chest heaviness or chest tightness No cough no fever or chills Review of Systems Review of Systems: All systems reviewed & are unremarkable except as noted in Subjective Physical Exam 2 Constitutional: WD/WN, vitals as above + obese Eyes: + anicteric sclerae ENMT: external ear and nose normal, oropharynx normal Neck: normal visual inspection Respiratory: Auscultation: + diminished lung sounds, + crackles and + rales; no wheezes Cardiovascular: Rate/Rhythm: regular rate and regular rhythm Extremities: + pedal edema and + edema Gastrointestinal (Abdomen): Percussion/Palpation: abdomen soft; abdomen nontender and no ascites Skin: no rashes, warm and dry Neurologic: PERRL, EOMI, accommodation nl, no face palsy, no dysarthria Psychiatric: A+Ox3, euthymic affect Results & Data Results & Data ([facility]) Vital Signs (Past 12 Hours) Vital Signs Temp Pulse Pulse Resp BP Pulse Ox 08/18/20 11:18 36.5 C 72 22 102/59 L 91 08/18/20 08:04 26 H 91 08/18/20 08:00 73 08/18/20 07:15 36.4 C L 68 18 126/86 99 08/18/20 02:40 36.8 C 66 18 150/97 H 96
[2020-08-18] MEDS ORDERED: bisacodyL 5 MG TABEC PO PRN (13:43)
[2020-08-18] MEDS ORDERED: FUROSEMIDE 100 MG in DEXTROSE 5% 90 ML IV SCH (14:00)
--- NOTE | 2020-08-18 14:09 | Cardiology Progress Note ---
Date of Service August 18, 2020 Assessment & Plan (1) Hypokalemia: (2) Pulmonary edema: (3) CHF (congestive heart failure): (4) Elevated troponin: (5) History of ventricular fibrillation: (6) PAF (paroxysmal atrial fibrillation): (7) H/O mitral valve replacement: (8) H/O aortic valve replacement: (9) History of coronary artery bypass graft x 1: (10) CAD (coronary artery disease): No benefit with diuresis to this point. Was seen by pulmonary who recommended continued diuresis. Will increase Lasix frequency to every 8 hours today and should there remain no clinical improvement nor any significant urinary output overnight would consider consulting our nephrology colleagues and possibly start her on a Lasix drip. Supplement potassium orally Add hydralazine if blood pressure permits. No ACEI/ARB/Entresto/Aldactone, RE: Hyperkalemia with past use of both lisinopril and spironolactone, plus his degree of renal impairment. Device interrogation. He is aware that he may require replacement of the RV lead at the time of generator replacement. ? mortar maker placement. Admission and Anticipated Discharge Date Admission Date: August 16, 2020 Subjective Patient seen and examined, chart reviewed. Continues to state that he is no benefit since admission still with significant shortness of breath. Telemetry reviewed: AV sequential pacing Review of Systems Review of Systems: All systems reviewed & are unremarkable except as noted in HPI & below Physical Exam Physical Exam: General: Awake, alert and oriented x 3. No acute distress. HEENT: Normocephalic, atraumatic. Pupils equal, round and reactive to light and accommodation. Extraocular muscles are intact. Anicteric sclera. Moist mucous membranes. Neck: No JVD. No bruit. Cardiovascular: Regular. Positive S-4. Normal S-1 and S-2. No S-3. 3/6 mid to late systolic ejection murmur, greatest at the right sternal border, second intercostal space with radiation to the bilateral carotids. No rubs. Pulmonary: Coarse breath sounds diffusely with scattered rhonchi and wheezing. Abdomen: Bowel sounds x 4, soft. No rebound, guarding or tenderness. No organomegaly. Extremities: No clubbing, cyanosis or edema. +2 pedal pulses bilaterally. Skin: Warm and dry. Results & Data ([facility]) Vital Signs (Past 12 Hours) Vital Signs Temp Pulse Pulse Resp BP Pulse Ox 08/18/20 11:18 36.5 C 72 22 102/59 L 91 08/18/20 08:04 26 H 91 08/18/20 08:00 73 08/18/20 07:15 36.4 C L 68 18 126/86 99 08/18/20 02:40 36.8 C 66 18 150/97 H 96 (1) Pulmonary edema Chronicity: acute Qualified Code(s): J81.0 - Acute pulmonary edema (2) CHF (congestive heart failure) Heart failure chronicity: acute on chronic Heart failure type: unspecified Qualified Code(s): I50.9 - Heart failure, unspecified
[2020-08-18] MEDS: ACETAMINOPHEN 325 MG TAB PO PRN (16:48)
[2020-08-18] MEDS ORDERED: metOLazone 5 MG TABLET PO ONE (18:13)
--- NOTE | 2020-08-18 18:30 | Communication Note ---
Date of Service: August 18, 2020 urine out put low noted in evening per nursing after changing Matthews catheter , no urine out put noted in Matthews Bag , bladder scan : minimum /non detectable residual urine has been on Iv lasix gtt since AM ordered for stat BMP , if Cr is elevated , will need IV fluid bolus hold IV Lasix gtt till lab work is available Rocio Steel MD
[2020-08-18 19:40] LABS: BUN Creatinine Ratio 20.9 (10-20); Calcium 8.1 mg/dl (8.5-10.1); Creatinine Clr Calc Pharmacy 37.1 ml/min; Est GFR (African American) 33.6 ml/min; Potassium 3.6 mmol/L (3.5-5.1)
[2020-08-18] MEDS: ATORVASTATIN 40 MG TAB PO SCH (20:53)
[2020-08-19 06:36] LABS: Hematocrit (blood only) 27.8 % (42-52); Mean Corpuscular Hemoglobin 29.9 pg (25-34); Mean Corpuscular Hgb Conc 32.4 g/dL (32-36); Mean Corpuscular Volume 92.4 fL (80-100); Mean Platelet Volume 11.6 fL (7.4-10.4); Platelet Count 257 K/uL (130-400); RDW Coefficient of Variation 15.9 % (11.5-14.5); Red Blood Count 3.01 M/uL (4.7-6.1); White Blood Count 11.27 K/uL (4.8-10.8)
[2020-08-19 06:56] LABS: Prothrombin Time 57.5 Seconds (9.0-12.0)
[2020-08-19 07:01] LABS: INR 6.6 (0.9-1.1)
[2020-08-19 07:10] LABS: Albumin Level 2.2 gm/dl (3.4-5.0); BUN Creatinine Ratio 21.7 (10-20); Calcium 8.4 mg/dl (8.5-10.1); Creatinine Clr Calc Pharmacy 36.3 ml/min; Est GFR (African American) 32.9 ml/min; Est GFR (Non-African American) 28.3 ml/min; Potassium 3.7 mmol/L (3.5-5.1)
[2020-08-19 07:20] LABS: Albumin Globulin Ratio 0.5 (0.9-2); Bilirubin,Total 1.2 mg/dl (0.2-1); Globulin 4.2 gm/dl (2.5-4.0); Thyroid Stimulating Hormone 2.06 uIu/ml (0.300-4.500); Total Protein 6.4 gm/dl (6.4-8.2)
[2020-08-19] MEDS ORDERED: SODIUM CHLORIDE 0.9% 1000ML 250 ML IV ONE (07:34)
[2020-08-19] MEDS ORDERED: PHYTONADIONE 5 MG TAB PO STA ×3 (07:35→16:31)
--- NOTE | 2020-08-19 07:42 | Communication Note ---
Date of Service: August 19, 2020 urine out put remained very low , 200 ml /overnight Cr 2.2 , marked coagulopathy with transaminitis noted INR > 6 , ordered for Vit K , repeat CMP/INR @ 2 pm pt is ordered NPO , hold amiodarone and statin /coumadin liver USG ordered for 250 ml IV bolus Nephrology consult Rocio Steel MD
--- NOTE | 2020-08-19 07:45 | XRay Report ---
XR chest 1V portable CLINICAL HISTORY: Congestive heart failure. COMPARISON STUDY: Chest radiograph August 17, 2020. FINDINGS: Biventricular left subclavian pacer/AICD, prosthetic cardiac valve and median sternotomy wi res are noted. Cardiomegaly is unchanged. There is no pneumothorax. Bilateral pleural effusions are s imilar to prior exam. Interstitial thickening and bilateral opacities persist. The appearance of the chest is unchanged. IMPRESSION: No significant change in pulmonary edema with small bilateral pleural effusions. ACT 112: Negative or not required by law. Electronically signed by: Ayo Sage M.D. 08/19/2020 7:43 AM
[2020-08-19] MEDS: INSULIN ASPART 100 UNITS/ML 3 ML PEN SC SCH ×3 (08:18→18:56)
[2020-08-19] MEDS ORDERED: metOLazone 5 MG TABLET PO SCH (09:00)
[2020-08-19 09:35] LABS: Chloride Random Urine < 10 mmol/L; Potassium Random Urine 46.4 mmol/L; Sodium Random Urine < 5 mmol/L; Uric Acid Urine Random 31.8 mg/dl
[2020-08-19] MEDS: DOCUSATE SODIUM 100 MG CAP PO SCH (09:42)
[2020-08-19] MEDS: CHOLECALCIFEROL 1,000 UNITS 25 MCG TAB PO SCH (09:42)
[2020-08-19] MEDS: ASCORBIC ACID 500 MG TAB PO SCH (09:42)
[2020-08-19] MEDS: ASPIRIN 81 MG ECTAB PO SCH (09:42)
[2020-08-19] MEDS: METOPROLOL SUCC 50MG EXT REL TAB PO SCH (09:42)
[2020-08-19] MEDS: DULoxetine HCL 20 MG CAP PO SCH (09:42)
[2020-08-19] MEDS: MAGNESIUM OXIDE 400 MG TAB PO SCH (09:43)
[2020-08-19] MEDS: INSULIN GLARGINE SOLOSTAR 100 UNITS/ML 3 ML PEN SC SCH (09:43)
[2020-08-19] MEDS: MICONAZOLE NITRATE POWDER 43 GM EXT SCH ×2 (10:13→20:57)
[2020-08-19] MEDS: POLYETHYLENE (MIRALAX) 17 GM PACK PO SCH (10:14)
--- NOTE | 2020-08-19 10:24 | Electrocardiogram Report ---
Test Reason : Blood Pressure : / mmHG Vent. Rate : 088 BPM Atrial Rate : 088 BPM P-R Int : 138 ms QRS Dur : 050 ms QT Int : 300 ms P-R-T Axes : 000 000 219 degrees QTc Int : 363 ms Poor data quality, interpretation may be adversely affected Sinus rhythm with Bi ventricular-paced complexes and a PVC Abnormal ECG When compared with ECG of 17-AUG-2020 07:36, Premature ventricular complexes are now Present Vent. rate has increased BY 18 BPM Confirmed by Keven Morrell ([id number]) on 08/19/2020 10:24:21 AM Referred By: REFERRED SELF Confirmed By:Keven Morrell
--- NOTE | 2020-08-19 10:25 | CT Scan Report ---
CT SCAN OF THE CHEST WITHOUT IV CONTRAST CLINICAL HISTORY: Hypoxia. Congestive heart failure. COMPARISON STUDY: Chest x-ray dated 08/19/2020. TECHNIQUE: CT scan of the thorax was performed from the thoracic inlet to the upper abdomen. Images are reviewed in the axial, sagittal, and coronal planes. IV contrast was not administered for this ex amination as per the referring clinician. A dose lowering technique was utilized adhering to the [facility]. CT DOSE: 1297.48 mGy.cm FINDINGS: Thyroid: Imaged portions of the thyroid gland are normal in size and attenuation. Thoracic aorta: There is atherosclerotic calcification of the thoracic aorta, which is normal in nina harris and demonstrates standard 3-vessel arch anatomy. Heart: A 2-lead cardiac AICD is present in the left chest wall. The patient is status post midline st ernotomy with postoperative change seen involving the aortic and mitral valves. Epicardial pacing serge ds are noted. The heart is markedly enlarged and without pericardial effusion. The coronary arteries are densely calcified. Lungs and pleural spaces: Secretions are noted in the upper trachea. Diffuse groundglass consolidatio n is seen throughout both lungs. There is intralobular septal thickening. Round atelectasis is sugges oliver at the right lung base. There are small left and trace right pleural effusions with associated at electasis. Left pleural effusion appears at least partially loculated. Mediastinum: Numerous mildly enlarged mediastinal lymph nodes measure up to 11 mm in short axis. Mackenzie: Not well assessed without IV contrast. Axillae: There is no axillary lymphadenopathy. Upper abdomen: The gallbladder is somewhat hyperdense material which could represent vicariously excr eted contrast or sludge. Filling defects within the gallbladder lumen likely represent gallstones. Th ere is a tiny hiatal hernia. The pancreas is atrophic with numerous parenchymal calcifications and co nsistent with chronic pancreatitis. Several stones are present within the main pancreatic duct which is mildly dilated distally. Skeletal structures: The skeletal structures are osteopenic. Spondylotic change is seen throughout th e thoracic spine. Arthritic change is noted in the shoulders. No lytic or blastic bony lesions are se en. IMPRESSION: 1. Cardiomegaly and AICD. Intralobular septal thickening could be related to acute versus chronic con gestive failure. 2. Diffuse groundglass consolidation is seen throughout both lungs. This could represent pulmonary ed chacorta, multifocal pneumonia, and/or ARDS. Clinical correlation will be essential. Radiographic follow-u p to resolution is recommended. 3. Small left and trace right pleural effusions. 4. Cholelithiasis. 5. There is evidence of chronic pancreatitis with large stones within the main pancreatic duct. 6. Mildly enlarged mediastinal lymph nodes are likely reactive. ACT 112: Negative or not required by law. Electronically signed by: Tesfaye Lock M.D. 08/19/2020 10:24 AM
[2020-08-19] MEDS ORDERED: STAT IV Infusion **Titration per Protocol STA (10:31)
--- NOTE | 2020-08-19 10:40 | Ultrasound Report ---
ULTRASOUND RIGHT UPPER QUADRANT ABDOMEN CLINICAL HISTORY: Elevated hepatic transaminases. COMPARISON STUDY: Renal ultrasound dated 07/17/2020. TECHNIQUE: Real-time, grayscale, and color flow sonography of the right upper quadrant of the abdomen was performed. Images are reviewed in the transverse and longitudinal planes. The Examination is sub optimal due to patient's inability to breath-hold and large body habitus. FINDINGS: Liver: The liver is enlarged, measuring 20 cm in length. Echotexture is heterogeneous. There is nodul arity of the hepatic surface contour. There is no intrahepatic biliary ductal dilatation. The main po rtal vein is patent. Gallbladder: The gallbladder is mildly distended and filled with stones and sludge. There is no gallb ladder wall thickening or pericholecystic fluid. A sonographic Jessica's sign is reportedly absent. Th e common bile duct measures up to 0.6 cm in diameter. Pancreas: Visualized portions of the pancreatic head are grossly unremarkable. The majority of the pa ncreas was not visualized.. Right kidney: Survey images of the right kidney demonstrate cortical atrophy. Echotexture is normal. There is no hydronephrosis. Ascites: None. IMPRESSION: 1. The liver is enlarged, heterogeneous, and shows cirrhotic change. 2. Cholelithiasis and biliary sludge with no sonographic evidence of acute cholecystitis. ACT 112: Negative or not required by law. Electronically signed by: Tesfaye Lock M.D. 08/19/2020 10:38 AM
--- NOTE | 2020-08-19 10:59 | Critical Care Consultation ---
Date of Consultation August 19, 2020 Assessment & Plan (1) Acute and chronic respiratory failure with hypoxia: Reason Critically Ill: 74-year-old male with acute on chronic congestive heart failure with acute on chronic respiratory failure and cardiorenal syndrome PLAN: Resp: --Acute on chronic hypoxic respiratory failure Likely secondary to systolic but diastolic CHF on top of CKD --OBED Continue with CPAP at night --Pulmonary hypertension Type II Treatment as above CV: Acute congestive heart failure -Lasix infusion and dobutamine infusion Fluids/Renal: Acute kidney injury on chronic kidney disease -Dobutamine and diuretics hoping for more forward flow to induce diuresis ID: Leukocytosis -Monitor fever curve GI/Nutrition: N.p.o. at this time Heme: Anemia DVT prophylaxis: Supratherapeutic INR Endocrine: ICU hyperglycemia protocol Vascular access: Peripheral IVs Code Status: Full code Disposition: ICU (2) OBED (obstructive sleep apnea): (3) Pulmonary edema: (4) CHF (congestive heart failure): (5) Pulmonary hypertension: Supervising Physician Co-Signing Physician Notes I have personally spent 45 minutes of critical care time in the direct management of this patient. This is a life/limb threatening event. This includes time spent evaluating patient, direct bedside care, chart review, placing orders, interpretation of diagnostic studies, discussion with consultants, patient, and/or family members regarding treatment decisions, as well as other required patient management activities. This time is exclusive of all separately billable procedures, and teaching time and separate from and in addition to any other critical care service time. History of Present Illness Reason for Consultation: Cardiac renal syndrome Requesting Physician: Rocio Steel MD Attending Physician: Rocoi Steel MD Allergies Allergy/AdvReac Type Severity Reaction Status Date / Time No Known Allergies Allergy Unverified 02/12/20 18:24 Home Medications Medication Instructions Recorded Confirmed Type albuterol sulfate 2 puff INHALATION QID PRN 12/07/19 08/16/20 History ascorbic acid (vitamin C) [Vitamin 500 mg PO BID 12/07/19 08/16/20 History C] clopidogrel 75 mg PO QAM 12/07/19 08/16/20 History docusate sodium 100 mg PO BID 12/07/19 08/16/20 History furosemide 80 mg PO QAM 12/07/19 08/16/20 History nitroglycerin 0.4 mg SUBLINGUAL DIRECTED PRN 12/07/19 08/16/20 History omeprazole 20 mg PO QAM PRN 12/07/19 08/16/20 History atorvastatin 80 mg PO QPM 12/30/19 08/16/20 History cyanocobalamin (vitamin B-12) 1,000 mcg IM MO 12/30/19 08/16/20 History magnesium oxide 400 mg PO DAILY 12/30/19 08/16/20 History metoprolol succinate 100 mg PO DAILY 12/30/19 08/16/20 History isosorbide mononitrate 60 mg PO QAM 30 Days #60 tab 01/06/20 08/16/20 Rx duloxetine 20 mg PO QAM 02/12/20 08/16/20 History cholecalciferol (vitamin D3) 125 mcg PO Q2D 07/14/20 08/16/20 History [Vitamin D3] furosemide 40 mg PO DAILY@1300 07/14/20 08/16/20 History insulin aspart U-100 [Novolog 8 unit SUBCUT AC #15 ml 07/25/20 08/16/20 Rx Flexpen U-100 Insulin] insulin degludec [Tresiba 15 unit SUBCUT QAM #15 ml 07/25/20 08/16/20 Rx FlexTouch U-100] warfarin 1.25 mg PO DAILY #20 tab 07/25/20 08/16/20 Rx amiodarone 200 mg PO DAILY 08/16/20 08/16/20 History Patient History Medical History Acute respiratory failure with hypoxia CAD (coronary artery disease) 07/2018: coronary artery bypass grafting x1 with reverse saphenous vein from aorta to right coronary artery via endoscopic saphenous vein harvesting; PCI to mid LAD with RIZWAN Chronic HFrEF (heart failure with reduced ejection fraction) Chronic kidney disease CKD (chronic kidney disease) stage 4, GFR 15-29 ml/min Diabetes mellitus, type 2 GERD (gastroesophageal reflux disease) History of ventricular fibrillation Hyperlipidemia Hypertension BOED on CPAP PAF (paroxysmal atrial fibrillation) Pernicious anemia Surgical History H/O aortic valve replacement Status post bioprosthetic AVR in 2004 Aortic valve prosthesis stenosis and mitral regurgitation requiring redo sternotomy jul 21 2013 with redo AVR and subsequent MVR. H/O mitral valve replacement History of appendectomy History of cardiac cath History of colonoscopy History of coronary artery bypass graft x 1 coronary artery bypass grafting x1 with reverse saphenous vein from aorta to right coronary artery via endoscopic saphenous vein harvesting. History of heart artery stent History of heart valve replacement ICD (implantable cardioverter-defibrillator) in place Family History Father Heart disease SD @ age 64 Mother , age 34, stomach ca Cancer Social History Smoking Status: Never smoker Second Hand Exposure: No; Hx Alcohol Use: Yes Hx Substance Use: No Preferred Language: [place] Communication Ability: Effective Surgical Scrub Tech Required: No Beliefs That Will Affect Care: None marital status: Single Current Living Situation: Alone current occupation: retired Other Information That Helps Us Care for You: No Feels Safe at Home: Yes Safety Concerns: Feels Safe At This Time Assistive Devices: Oxygen - Continuous Review of Systems Review of Systems: All systems reviewed & are unremarkable except as noted in HPI & below Physical Exam Physical Exam: General: Resting. nontoxic. Skin: Cool, dry, Head: Atraumatic Ears, nose, mouth and throat: Obscured by BiPAP Cardiovascular: Decreased capillary refill Respiratory: no respiratory distress Gastrointestinal: Non distended Musculoskeletal: No deformity Results & Data Results & Data ([facility]) Vital Signs (Past 12 Hours) Vital Signs Temp Pulse Pulse Resp BP Pulse Ox 08/19/20 08:37 77 22 93 08/19/20 08:35 78 22 95 08/19/20 08:00 73 08/19/20 07:54 36.3 C L 74 28 H 116/67 91 08/19/20 02:56 36.9 C 69 16 138/63 92 Laboratory Results 08/19/20 08/19/20 08/19/20 Range/Units 12:00 11:48 09:51 WBC (4.8-10.8) K/uL RBC (4.7-6.1) M/uL Hgb (14.0-18.0) g/dL Hct (42-52) % MCV (80-100) fL MCH (25-34) pg MCHC (32-36) g/dL RDW Std Deviation (36.4-46.3) fL RDW Coeff of Rosio (11.5-14.5) % Plt Count (130-400) K/uL MPV (7.4-10.4) fL PT (9.0-12.0) Seconds INR (0.9-1.1) Sodium (136-145) mmol/L Potassium (3.5-5.1) mmol/L Chloride (98-107) mmol/L Carbon Dioxide (21-32) mmol/L Anion Gap (3-11) BUN (7-18) mg/dl Creatinine (0.6-1.4) mg/dl Est Cr Clr Drug Dosing ml/min Est GFR ( Amer) ml/min Est GFR (Non-Af Amer) ml/min BUN/Creatinine Ratio (10-20) Glucose (70-99) mg/dl POC Glucose 121 H (70-99) mg/dl Lactate (0.4-2.0) mmol/L Calcium (8.5-10.1) mg/dl Total Bilirubin (0.2-1) mg/dl AST (15-37) U/L ALT (12-78) U/L Alkaline Phosphatase (45-117) U/L NT-Pro-B Natriuret Pep (0-900) pg/ml Total Protein (6.4-8.2) gm/dl Albumin (3.4-5.0) gm/dl Globulin (2.5-4.0) gm/dl Albumin/Globulin Ratio (0.9-2) Lipase (73-393) U/L Procalcitonin 0.87 H (0-0.5) ng/ml TSH (0.300-4.500) uIu/ml Urine Osmolality (500-800) mOsm/kg Ur Random Creatinine mg/dl Ur Random Sodium mmol/L Ur Random Potassium mmol/L Ur Random Chloride mmol/L Ur Random Uric Acid mg/dl Nasal Screen MRSA (PCR) Pending 08/19/20 08/19/20 08/19/20 Range/Units 09:51 09:05 09:05 WBC (4.8-10.8) K/uL RBC (4.7-6.1) M/uL Hgb (14.0-18.0) g/dL Hct (42-52) % MCV (80-100) fL MCH (25-34) pg MCHC (32-36) g/dL RDW Std Deviation (36.4-46.3) fL RDW Coeff of Rosio (11.5-14.5) % Plt Count (130-400) K/uL MPV (7.4-10.4) fL PT (9.0-12.0) Seconds INR (0.9-1.1) Sodium (136-145) mmol/L Potassium (3.5-5.1) mmol/L Chloride (98-107) mmol/L Carbon Dioxide (21-32) mmol/L Anion Gap (3-11) BUN (7-18) mg/dl Creatinine (0.6-1.4) mg/dl Est Cr Clr Drug Dosing ml/min Est GFR ( Amer) ml/min Est GFR (Non-Af Amer) ml/min BUN/Creatinine Ratio (10-20) Glucose (70-99) mg/dl POC Glucose (70-99) mg/dl Lactate 1.9 (0.4-2.0) mmol/L Calcium (8.5-10.1) mg/dl Total Bilirubin (0.2-1) mg/dl AST (15-37) U/L ALT (12-78) U/L Alkaline Phosphatase (45-117) U/L NT-Pro-B Natriuret Pep (0-900) pg/ml Total Protein (6.4-8.2) gm/dl Albumin (3.4-5.0) gm/dl Globulin (2.5-4.0) gm/dl Albumin/Globulin Ratio (0.9-2) Lipase (73-393) U/L Procalcitonin (0-0.5) ng/ml TSH (0.300-4.500) uIu/ml Urine Osmolality 355 L (500-800) mOsm/kg Ur Random Creatinine 130.0 mg/dl Ur Random Sodium < 5 mmol/L Ur Random Potassium 46.4 mmol/L Ur Random Chloride < 10 mmol/L Ur Random Uric Acid 31.8 mg/dl Nasal Screen MRSA (PCR) 08/19/20 08/19/20 08/19/20 Range/Units 07:59 05:53 05:53 WBC (4.8-10.8) K/uL RBC (4.7-6.1) M/uL Hgb (14.0-18.0) g/dL Hct (42-52) % MCV (80-100) fL MCH (25-34) pg MCHC (32-36) g/dL RDW Std Deviation (36.4-46.3) fL RDW Coeff of Rosio (11.5-14.5) % Plt Count (130-400) K/uL MPV (7.4-10.4) fL PT 57.5 H (9.0-12.0) Seconds INR 6.6 H* (0.9-1.1) Sodium (136-145) mmol/L Potassium (3.5-5.1) mmol/L Chloride (98-107) mmol/L Carbon Dioxide (21-32) mmol/L Anion Gap (3-11) BUN (7-18) mg/dl Creatinine (0.6-1.4) mg/dl Est Cr Clr Drug Dosing ml/min Est GFR ( Amer) ml/min Est GFR (Non-Af Amer) ml/min BUN/Creatinine Ratio (10-20) Glucose (70-99) mg/dl POC Glucose 122 H (70-99) mg/dl Lactate (0.4-2.0) mmol/L Calcium (8.5-10.1) mg/dl Total Bilirubin (0.2-1) mg/dl AST (15-37) U/L ALT (12-78) U/L Alkaline Phosphatase (45-117) U/L NT-Pro-B Natriuret Pep (0-900) pg/ml Total Protein (6.4-8.2) gm/dl Albumin (3.4-5.0) gm/dl Globulin (2.5-4.0) gm/dl Albumin/Globulin Ratio (0.9-2) Lipase 61 L (73-393) U/L Procalcitonin (0-0.5) ng/ml TSH (0.300-4.500) uIu/ml Urine Osmolality (500-800) mOsm/kg Ur Random Creatinine mg/dl Ur Random Sodium mmol/L Ur Random Potassium mmol/L Ur Random Chloride mmol/L Ur Random Uric Acid mg/dl Nasal Screen MRSA (PCR) 0508/19/20 08/18/20 Range/Units 05:53 05:53 20:34 WBC 11.27 H (4.8-10.8) K/uL RBC 3.01 L (4.7-6.1) M/uL Hgb 9.0 L (14.0-18.0) g/dL Hct 27.8 L (42-52) % MCV 92.4 (80-100) fL MCH 29.9 (25-34) pg MCHC 32.4 (32-36) g/dL RDW Std Deviation 53.0 H (36.4-46.3) fL RDW Coeff of Rosio 15.9 H (11.5-14.5) % Plt Count 257 (130-400) K/uL MPV 11.6 H (7.4-10.4) fL PT (9.0-12.0) Seconds INR (0.9-1.1) Sodium 136 (136-145) mmol/L Potassium 3.7 (3.5-5.1) mmol/L Chloride 101 (98-107) mmol/L Carbon Dioxide 25 (21-32) mmol/L Anion Gap 11.0 (3-11) BUN 48 H (7-18) mg/dl Creatinine 2.22 H (0.6-1.4) mg/dl Est Cr Clr Drug Dosing 36.3 ml/min Est GFR ( Amer) 32.9 ml/min Est GFR (Non-Af Amer) 28.3 ml/min BUN/Creatinine Ratio 21.7 H (10-20) Glucose 87 (70-99) mg/dl POC Glucose 131 H (70-99) mg/dl Lactate (0.4-2.0) mmol/L Calcium 8.4 L (8.5-10.1) mg/dl Total Bilirubin 1.2 H (0.2-1) mg/dl AST 240 H (15-37) U/L ALT 119 H (12-78) U/L Alkaline Phosphatase 159 H (45-117) U/L NT-Pro-B Natriuret Pep (0-900) pg/ml Total Protein 6.4 (6.4-8.2) gm/dl Albumin 2.2 L (3.4-5.0) gm/dl Globulin 4.2 H (2.5-4.0) gm/dl Albumin/Globulin Ratio 0.5 L (0.9-2) Lipase (73-393) U/L Procalcitonin (0-0.5) ng/ml TSH 2.060 (0.300-4.500) uIu/ml Urine Osmolality (500-800) mOsm/kg Ur Random Creatinine mg/dl Ur Random Sodium mmol/L Ur Random Potassium mmol/L Ur Random Chloride mmol/L Ur Random Uric Acid mg/dl Nasal Screen MRSA (PCR) 08/18/20 08/18/20 08/18/20 Range/Units 19:04 16:38 06:26 WBC (4.8-10.8) K/uL RBC (4.7-6.1) M/uL Hgb (14.0-18.0) g/dL Hct (42-52) % MCV (80-100) fL MCH (25-34) pg MCHC (32-36) g/dL RDW Std Deviation (36.4-46.3) fL RDW Coeff of Rosio (11.5-14.5) % Plt Count (130-400) K/uL MPV (7.4-10.4) fL PT (9.0-12.0) Seconds INR (0.9-1.1) Sodium 136 (136-145) mmol/L Potassium 3.6 (3.5-5.1) mmol/L Chloride 102 (98-107) mmol/L Carbon Dioxide 25 (21-32) mmol/L Anion Gap 10.0 (3-11) BUN 46 H (7-18) mg/dl Creatinine 2.18 H (0.6-1.4) mg/dl Est Cr Clr Drug Dosing 37.1 ml/min Est GFR ( Amer) 33.6 ml/min Est GFR (Non-Af Amer) 29.0 ml/min BUN/Creatinine Ratio 20.9 H (10-20) Glucose 122 H (70-99) mg/dl POC Glucose 120 H (70-99) mg/dl Lactate (0.4-2.0) mmol/L Calcium 8.1 L (8.5-10.1) mg/dl Total Bilirubin (0.2-1) mg/dl AST (15-37) U/L ALT (12-78) U/L Alkaline Phosphatase (45-117) U/L NT-Pro-B Natriuret Pep > 36994 H (0-900) pg/ml Total Protein (6.4-8.2) gm/dl Albumin (3.4-5.0) gm/dl Globulin (2.5-4.0) gm/dl Albumin/Globulin Ratio (0.9-2) Lipase (73-393) U/L Procalcitonin (0-0.5) ng/ml TSH (0.300-4.500) uIu/ml Urine Osmolality (500-800) mOsm/kg Ur Random Creatinine mg/dl Ur Random Sodium mmol/L Ur Random Potassium mmol/L Ur Random Chloride mmol/L Ur Random Uric Acid mg/dl Nasal Screen MRSA (PCR) Coding Level of Care Code Critical Care 1st 30-74 mins Diagnoses Acute and chronic respiratory failure with hypoxia J96.21 OBED (obstructive sleep apnea) G47.33 Pulmonary edema J81.0 Chronicity: acute CHF (congestive heart failure) I50.9 Heart failure chronicity: acute on chronic Heart failure type: unspecified Pulmonary hypertension I27.20 (1) CHF (congestive heart failure) Heart failure chronicity: acute on chronic Heart failure type: unspecified Qualified Code(s): I50.9 - Heart failure, unspecified (2) Pulmonary edema Chronicity: acute Qualified Code(s): J81.0 - Acute pulmonary edema
[2020-08-19] MEDS ORDERED: ICU PROTOCOL FOR HYPERGLYCEMIA PRN (11:09)
--- NOTE | 2020-08-19 11:09 | Hospitalist Progress Note ---
Date of Service August 19, 2020 Assessment & Plan (1) Acute respiratory failure with hypoxemia: acute hypoxemic respiratory failure secondary to pulmonary edema caused by decompensated CHF with ischemic cardiomyopathy biventricular heart failure. Clinical status continues to worsen, despite of aggressive diuresis attempt. Developed oliguric renal failure, chest x-ray shows florid pulmonary congestion, BNP more than 35,000 worsening since admission. Elevation of LFTs with worsening of coagulopathy, Concern for hepatorenal syndrome caused by passive liver congestion with severe decompensated CHF Previous echo EF was 30%, repeat echo ordered Patient is transferred to ICU, ordered for IV dobutamine drip Very advanced cardiomyopathy with end-stage heart failure, overall prognosis remains extremely poor Patient's acute status and condition updated niece over phone, does not have any or children Patient is full code Given very poor outcome, CODE STATUS needs to be readdressed Acute decompensated CHF with combined systolic and diastolic dysfunction: Presented with volume overload, hypoxemia with's severe pulmonary congestion, elevated proBNP volume overload Recent admission with similar symptoms, recent echo shows EF of 30-35% with i schemic cardiomyopathy. 1 diastolic dysfunction Cardiology input appreciated, Attempted with diuresis IV Lasix drip, with no outcome, cardiac status continues to decline leading to passive hepatic congestion with elevated LFTs coagulopathy, oliguric renal failure Dobutamine drip started in attempt to improve cardiac function Transfer to ICU, Very poor prognosis (2) CAD (coronary artery disease): -History of coronary bypass completed in 2014 Has been on beta-varsha and atorvastatin Plavix: Oral medication will be kept on hold, respiratory failure/multiorgan dysfunction Presents with acute hypoxemic respiratory failure secondary to decompensated CHF No evidence of acute coronary event, limited troponin most likely secondary to demand ischemia-cardiology following Repeat echocardiogram ordered as worsening of cardiac function noted Prognosis remains guarded (3) Elevated troponin: Possible type II non-ST elevated UT/demand ischemia On admission intermittent chest pain chest discomfort possibly secondary to decompensated CHF No evidence of acute coronary event or plaque rupture, cardiology eval appreciated Cardiac function continues to decline in spite of aggressive diuresis, supportive care-respiratory ICU started on dobutamine drip (4) Hypertension: Hold all diuretics/cardiac decompensation Elevated LFTs/coagulopathy Possible hepatorenal symptoms from decompensated heart failure, passive liver congestion. Amiodarone/ statin discontinued, patient is ordered n.p.o. Liver ultrasound shows liver cirrhosis without acute liver or gallbladder disease Dobutamine drip to optimize cardiac function Vitamin K to reverse coagulopathy INR is 6.6, Expected worsening coagulopathy if cardiac function does not improve with dobutamine drip (5) Hyperlipidemia: Statin discontinued for transaminitis (6) PAF (paroxysmal atrial fibrillation): Amiodarone discontinued, worsening of respiratory status ARDS, transaminitis Acuminate discontinued for coagulopathy vitamin K ordered (7) H/O mitral valve replacement: - s/p replacement in 2013 Recent echo showed normal functioning bioprosthetic mitral valve Repeat echo ordered for worsening cardiac function (8) H/O aortic valve replacement: - s/p replacement in 2013 Recent echo showed normal functioning bioprosthetic mitral valve Repeat echo ordered for worsening cardiac function (9) History of coronary artery bypass graft x 1: Present with mild elevation troponin, intermittent chest discomfort secondary to decompensated CHF Worsening of cardiac condition as outlined above (10) Pernicious anemia: - (11) CKD (chronic kidney disease) stage 4, GFR 15-29 ml/min: Acute renal failure with CKD stage IV, possible secondary to cardiac decompensation Oliguric renal failure, leading to progressive volume overload, nephrology consulted, Overall prognosis remains extremely poor (12) Diabetes mellitus, type 2: Insulin sliding scale, ICU pharmacy consult for glycemic management (13) DVT prophylaxis: -INR elevated CODE: Full code Disposition: Transfer to ICU, Patient's niece updated over phone regarding ICU transfer Admission and Anticipated Discharge Date Admission Date: August 16, 2020 Subjective Follow-up visit for acute hypoxemic respiratory failure volume overload decompensated CHF with severe ischemic cardiomyopathy biventricular heart failure. Continue to have a low urine output overnight, remains hypoxic, on BiPAP Seen at bedside, in respiratory distress, Patient is ordered to transfer to ICU, will need to start on dobutamine drip CT chest shows bilateral groundglass opacity suggestive of diffuse pulmonary edema/ARDS/infectious process. Overall prognosis remains extremely poor Markedly elevated LFTs, coagulopathy noted this morning, possible hepatorenal syndrome secondary to cardiac decompensation? Liver ultrasound shows chronic hepatic cirrhosis, chronic gallbladder sludge with no evidence of acute cholecystitis. Case updated to on-call cardiology and pulmonology, ordered for dobutamine drip Remains oliguric, causing significant volume overload, case discussed with nephrology, At present diuretics kept on hold, continue dobutamine drip in ICU to optimize cardiac function. Repeat echo ordered by cardiology, will be done in ICU. 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 Review of Systems Review of Systems: All systems reviewed & are unremarkable except as noted in Subjective Physical Exam Constitutional: WD/WN, vitals as above (In respiratory distress) + obese Eyes: + anicteric sclerae ENMT: external ear and nose normal, oropharynx normal Neck: normal visual inspection Respiratory: Auscultation: + diminished lung sounds, + crackles and + rales Cardiovascular: Rate/Rhythm: regular rate and regular rhythm Extremities: + pedal edema and + edema Gastrointestinal (Abdomen): Percussion/Palpation: abdomen soft; abdomen nontender and no ascites Skin: no rashes, warm and dry Neurologic: PERRL, EOMI, accommodation nl, no face palsy, no dysarthria Psychiatric: Orientation: alert (Respiratory distress on BiPAP, notes head to yes or no) and oriented to person Results & Data Results & Data ([facility]) Vital Signs (Past 12 Hours) Vital Signs Temp Pulse Pulse Resp BP Pulse Ox 08/19/20 08:37 77 22 93 08/19/20 08:35 78 22 95 08/19/20 08:00 73 08/19/20 07:54 36.3 C L 74 28 H 116/67 91 08/19/20 02:56 36.9 C 69 16 138/63 92 08/18/20 22:56 36.6 C 66 20 116/70 92
--- NOTE | 2020-08-19 11:46 | Cardiology Progress Note ---
Date of Service August 19, 2020 Assessment & Plan (1) Hypokalemia: (2) Pulmonary edema: (3) CHF (congestive heart failure): (4) Elevated troponin: (5) History of ventricular fibrillation: (6) PAF (paroxysmal atrial fibrillation): (7) H/O mitral valve replacement: (8) H/O aortic valve replacement: (9) History of coronary artery bypass graft x 1: (10) CAD (coronary artery disease): Continues to decline clinically despite attempts at further diuresis with Lasix drip. Now with signs of hepatic failure likely due to passive congestion. At this point I agree with dobutamine/dopamine support in an effort to mobilize the fluid by increasing cardiac output and increasing renal perfusion. Should this be unsuccessful then I believe the only other option would be palliative care. Patient is not a candidate for any further cardiac intervention. Would like to repeat an echo today if possible to reevaluate LV systolic function as well as pulmonary pressures. Amiodarone discontinued due to slight chance of pulmonary toxicity I discussed CODE STATUS with patient briefly, he is currently not sure what his wishes are. Primary team attempting to contact next of kin. Given his continued clinical decline I would say prognosis is very poor. Admission and Anticipated Discharge Date Admission Date: August 16, 2020 Subjective Patient seen and examined, chart reviewed. Events of overnight reviewed. Case discussed with pulmonary and primary team. Currently patient is in the intensive care unit on BiPAP. Appears somewhat comfortable after initiation of BiPAP. Still continues without significant diuresis. States his breathing is more labored this morning. Denies chest pain or palpitations. Telemetry reviewed: Ventricularly paced rhythm. Review of Systems Review of Systems: All systems reviewed & are unremarkable except as noted in HPI & below Physical Exam Physical Exam: General: Awake, alert and oriented x 3. Conversational dyspnea while on BiPAP. HEENT: Normocephalic, atraumatic. Pupils equal, round and reactive to light and accommodation. Extraocular muscles are intact. Anicteric sclera. Moist mucous membranes. Neck: No JVD. No bruit. Cardiovascular: Regular. Positive S-4. Normal S-1 and S-2. No S-3. 3/6 mid to late systolic ejection murmur, greatest at the right sternal border, second intercostal space with radiation to the bilateral carotids. No rubs. Pulmonary: Poor air movement diffusely with scattered rhonchi. Dry bibasilar crackles present as well. Abdomen: Bowel sounds x 4, soft. No rebound, guarding or tenderness. No organomegaly. Extremities: No clubbing, cyanosis or edema. +2 pedal pulses bilaterally. Skin: Warm and dry. Results & Data ([facility]) Vital Signs (Past 12 Hours) Vital Signs Temp Pulse Pulse Resp BP Pulse Ox 08/19/20 11:32 76 31 H 98 08/19/20 11:13 88 28 H 96 08/19/20 08:37 77 22 93 08/19/20 08:35 78 22 95 08/19/20 08:00 73 08/19/20 07:54 36.3 C L 74 28 H 116/67 91 08/19/20 02:56 36.9 C 69 16 138/63 92 (1) Pulmonary edema Chronicity: acute Qualified Code(s): J81.0 - Acute pulmonary edema (2) CHF (congestive heart failure) Heart failure chronicity: acute on chronic Heart failure type: unspecified Qualified Code(s): I50.9 - Heart failure, unspecified
--- NOTE | 2020-08-19 12:11 | Communication Note ---
Date of Service: August 19, 2020 Discussed CODE STATUS with Mr. Acuña. Patient remains on BiPAP, awake and alert, able to participate in conversation. His declining health condition/seriousness -end-stage status of heart failure, poor prognosis was explained to him by cardiology Dr. Guzmán and pulmonology earlier today . I reinforced the same information that in spite of treatment with medication dobutamine/BiPAP, if he continues to deteriorate, Life support/breathing machine may not be able to revive him, Patient is unsure about DNR/DNI status, wants to think about it His niece Angelica is POA/ medical power of prosecuting attorney, He verbalizes, if clinical condition worsens /he becomes unresponsive, his niece will be able to make medical decisions for him. At present patient remains full code, Palliative care consult placed to address goals of care Overall prognosis remains extremely poor Rocio Steel MD
[2020-08-19] MEDS ORDERED: metOLazone 5 MG TABLET PO ONE (12:25)
[2020-08-19] MEDS: FUROSEMIDE 100 MG in DEXTROSE 5% 90 ML IV SCH ×3 (13:06→22:36)
[2020-08-19] MEDS ORDERED: Nursing to Pharmacy Communication SCH (13:15)
--- NOTE | 2020-08-19 13:20 | Pulmonology Progress Note ---
Date of Service August 19, 2020 Assessment & Plan (1) Acute and chronic respiratory failure with hypoxia: Chest x-ray 08/17/2020 personally reviewed: Portable film, bilateral costophrenic and cardiophrenic angles are blunted, increased cardiac silhouette, AICD appreciated. Patchy opacities of the lower bilaterally. Increase pulmonary vascular congestion 2D echo July 15, 2020: EF 25-30%, grade 2 diastolic dysfunction, PASP 62. Moderate global hypokinesis --Acute on chronic hypoxic respiratory failure Likely secondary to systolic but diastolic CHF on top of CKD BNP 27,000 COVID-19 negative Continue with diuretics Continue with O2 supplementation to keep O2 saturation between 88-92% Recommend BiPAP 14/8 40% when he short of breath. Patient is on amiodarone 200 mg on a daily basis. Amiodarone induced lung toxicity can be seen in patients, but with BNP of greater than 27,000 I would recommend diuresis first. --OBED Continue with CPAP at night --Pulmonary hypertension Type II Treatment as above Plan: CT chest from today shows diffuse groundglass opacities with interlobular thickening likely representing pulmonary edema, left-sided pleural effusion also appreciated. Adding inotrope would be the next step to increase renal perfusion and see if the urine output picks up. Patient will still need diuretics after the inotropes have kicked in. Continue with metolazone. Nephrology has been consulted. Continue with BiPAP which will help with pulmonary edema. Overall prognosis of the patient is poor given his significant comorbidities and end-stage heart disease. Case was discussed with Dr. Guzmán and Dr. Steel Please note the above document was generated using voice recognition software. It may contain grammatical, syntax or spelling errors.Any formal questions or concerns about the content, text or information contained within the body of t his dictation should be directly addressed to the provider for clarification. (2) OBED (obstructive sleep apnea): (3) Pulmonary edema: Chronicity: acute Qualified Code(s): J81.0 - Acute pulmonary edema (4) CHF (congestive heart failure): Heart failure chronicity: acute on chronic Heart failure type: unspecified Qualified Code(s): I50.9 - Heart failure, unspecified (5) Pulmonary hypertension: Admission and Anticipated Discharge Date Admission Date: August 16, 2020 Subjective Patient seen and examined at bedside in the ICU. Patient was transferred to the ICU as his urine output had gone down and his creatinine was going up. He still maintaining his blood pressure pretty well but I think he is going into hepatorenal from CHF. He says that his breathing is the same when he came to the hospital. Denies any chest pain, no headache, no nausea, no vomiting. Has been compliant with CPAP at night. Patient was on Lasix drip since yesterday morning but it was stopped in the even ing as patient's creatinine was trending up and his urine output went down. Review of Systems Review of Systems: All systems reviewed & are unremarkable except as noted in Subjective Physical Exam Physical Exam: Constitutional: Mild respiratory distress HEENT: EOMI, PERRLA Respiratory system: Decreased air entry bilaterally, no wheeze, no rhonchi, positive crackles bilaterally CVS: S1-S2 positive, positive AICD Abdomen: Soft, nontender, nondistended, positive bowel sounds x4, obese Extremities: +2 pulses bilaterally radialis/ dorsalis pedis, no cyanosis, +1 pitting edema bilateral lower extremity Neuro: Awake alert oriented x3 Psych: Normal mood and affect G/U: Positive Matthews Skin: no rashes, warm and dry Lymphatic: no cervical or axillary lymphadenopathy Results & Data Results & Data ([facility]) Vital Signs (Past 12 Hours) Vital Signs Temp Pulse Pulse Resp BP BP Pulse Ox 08/19/20 13:00 76 26 H 100 08/19/20 12:45 78 26 H 100 08/19/20 12:30 77 27 H 100 08/19/20 12:15 79 21 100 08/19/20 12:02 76 27 H 99 08/19/20 12:01 76 26 H 132/71 99 08/19/20 12:00 76 28 H 99 08/19/20 11:45 75 26 H 99 08/19/20 11:32 75 28 H 120/73 99 08/19/20 11:30 76 27 H 99 08/19/20 11:28 76 30 H 119/71 98 08/19/20 11:15 76 97 08/19/20 11:13 88 28 H 96 08/19/20 11:09 37.2 C 08/19/20 11:00 76 94 08/19/20 08:37 77 22 93 08/19/20 08:35 78 22 95 05/30/21 08:00 73 08/19/20 07:54 36.3 C L 74 28 H 116/67 91 08/19/20 02:56 36.9 C 69 16 138/63 92 08/19/20 05:53 08/19/20 05:53 PG Care Time/CCT Total # of Minutes Spent Total Time Spent with Patient: Total time spent is greater than 50% in coordination of care (as documented) at patient's floor/unit and/or counseling patient: Coding Level of Care Code 37912 Subseq Hosp Care Lvl 3 Diagnoses Acute and chronic respiratory failure with hypoxia J96.21 OBED (obstructive sleep apnea) G47.33 Pulmonary edema J81.0 Chronicity: acute CHF (congestive heart failure) I50.9 Heart failure chronicity: acute on chronic Heart failure type: unspecified Pulmonary hypertension I27.20
--- NOTE | 2020-08-19 14:16 | Consultation Report ---
DATE OF CONSULTATION: 08/19/2020 REASON FOR CONSULTATION: Abnormal kidney function in a patient with advanced congestive heart failure. HISTORY OF PRESENT ILLNESS: The patient is a 74-year-old male who was admitted 4 days ago with ischemic cardiomyopathy and CHF exacerbation. The patient has known history of congestive heart failure, biventricular AICD and multiple valvular heart disease as well as chronic kidney disease stage III with baseline creatinine in the high 1s lately. It is worth noting the patient was just admitted to [facility] from 07/14/2020-07/25/2020 and then transferred to [facility] for rehabilitation. From there he went to home, but within few days, he came to the hospital again because of increasing shortness of breath, weight gain as well as edema. He is currently being managed as CHF exacerbation. He has not responded very well to the treatment and has now been transferred to ICU for dobutamine drip. He has received both IV Lasix as well as Lasix drip briefly at 10 mg an hour. There is also talk about possible palliative consult at this time for his advanced cardiac disease. ALLERGIES: None. HOME MEDICATIONS: Reviewed in detail. PAST MEDICAL AND SURGICAL HISTORY: Includes history of acute respiratory failure with hypoxia, coronary artery disease status post CABG, chronic heart failure with reduced ejection fraction, chronic kidney disease, baseline creatinine 1.7, type 2 diabetes, GERD, history of ventricular fibrillation, status post ICD, hypertension, obstructive sleep apnea on CPAP, paroxysmal atrial fibrillation on Coumadin, history of aortic valve replacement, status post bioprosthetic AVR 2014, history of mitral valve replacement, history of coronary artery stenting. FAMILY HISTORY: Negative for renal disease or dialysis. SOCIAL HISTORY: No smoking. He is single, lives alone. He is retired. He uses oxygen and uses a walker for ambulation. REVIEW OF SYSTEMS: Unable to obtain as the patient barely answered any question and he is on a BiPAP and feels very weak and sick. PHYSICAL EXAMINATION: GENERAL: Elderly white male who appears to be quite sick and he is in some respiratory distress. He is on a BiPAP. HEENT: Mucous membrane is moist. NECK: Supple. Jugular venous distention is present. VITAL SIGNS: Blood pressure 132/71, pulse rate 76, respiratory rate 26 per minute, temperature 37.2. CPAP with 50% FIO2. CHEST: Bilateral decreased breath sounds. CARDIOVASCULAR: S1 and S2, irregular systolic murmur heard. ABDOMEN: Soft, nontender. EXTREMITIES: Shows 1+ edema. He has a Matthews catheter. NEUROLOGIC: He is awake and alert; however, could not really test orientation. He is moving all 4 extremities. LABORATORY TESTS: From this morning shows a creatinine of 2.22, BUN is 48 otherwise, normal electrolytes. Creatinine has been trending up slowly. Hemoglobin is 9.0. White count is 11,000, platelet count 257. He had CT scan of the chest done earlier today which shows cardiomegaly, possible pulmonary edema as well as pleural effusion. Liver ultrasound was also done and shows possible cirrhosis, but no evidence of acute cholecystitis. ASSESSMENT AND PLAN: A 74-year-old male with complicated cardiac history and has been labeled essentially as end-stage cardiac disease at this point, by Cardiology. Was admitted with congestive heart failure. He has known chronic kidney disease at baseline, but in the last few days, it has got somewhat worse. Acute renal failure: The acute component is probably related with cardiorenal situation. However, the creatinine rise is not that very prominent and is only minimally higher than his baseline. However, the patient is definitely in decompensated congestive heart failure and needs to be aggressively diuresed. He is now on dobutamine drip, which will potentially help with his renal perfusion and hopefully increase urine output. Also add Lasix drip at 20 mg per hour and metolazone 5 mg 1 dose now. But in the grand scheme of things patient's situation is quite terminal and totally agree with palliative medicine and possible comfort care, but till we do that we can continue with the Lasix and dobutamine drip. Case complexity high and was discussed with primary team.
[2020-08-19 14:44] LABS: Prothrombin Time 63.6 Seconds (9.0-12.0)
[2020-08-19 14:59] LABS: INR 7.4 (0.9-1.1)
[2020-08-19 15:01] LABS: Alanine Aminotransferase 180 U/L (12-78); Albumin Globulin Ratio 0.5 (0.9-2); Albumin Level 2.1 gm/dl (3.4-5.0); Alkaline Phosphatase 177 U/L (45-117); BUN Creatinine Ratio 21.9 (10-20); Bilirubin,Total 1.3 mg/dl (0.2-1); Blood Urea Nitrogen 48 mg/dl (7-18); Calcium 7.6 mg/dl (8.5-10.1); Carbon Dioxide 25 mmol/L (21-32); Chloride 101 mmol/L (98-107); Creatinine Clr Calc Pharmacy 36.6 ml/min; Est GFR (African American) 33.2 ml/min; Est GFR (Non-African American) 28.7 ml/min; Globulin 4.2 gm/dl (2.5-4.0); Glucose 143 mg/dl (70-99); Sodium 136 mmol/L (136-145); Total Protein 6.3 gm/dl (6.4-8.2)
[2020-08-19 15:46] LABS: Potassium 4.1 mmol/L (3.5-5.1)
[2020-08-19] MEDS ORDERED: PHYTONADIONE PED 1 MG/0.5ML AMP/SYRG IV ONE (16:32)
--- NOTE | 2020-08-19 16:44 | Communication Note ---
Date of Service: August 19, 2020 Patient's POA/niece present at bedside, patient's prognosis/end-stage cardiomyopathy/heart failure Leading to possible liver and kidney failure as well All questions answered, patient and niece wants to have more time to decide about DNR/DNI status Both of them are willing to have palliative care consult 2 PM lab reviewed, INR noted to be worsening 7.7, patient received 5 of p.o. vitamin K in a.m. for coagulopathy INR more than 6 Patient is ordered both p.o., and IV vitamin K Setting of coagulopathy secondary to passive liver congestion, P.m. LFTs continue to worsen Minimum urine output while on both dobutamine and Lasix drip patient received 5 mg of p.o. metolazone earlier. Extremely poor prognosis. Rocio Steel MD
[2020-08-19] MEDS ORDERED: PHYTONADIONE 2.5 MG in SODIUM CHLORIDE 0.9% 50 ML IV ONE (17:00)
--- NOTE | 2020-08-19 21:39 | Communication Note ---
Date of Service: August 19, 2020 Had an extensive discussion with the patient at the bedside regarding goals of care, prognosis, likelihood of survival and patient does not want heroic measu res undertaken in event of cardiac arrest. We discussed risks and benefits of intubation for respiratory insufficiency and the underlying pathology again is likely related to pre-existing cardiac disease which would not be amenable to aggressive interventions and accordingly he does not want to be intubated in event of respiratory insufficiency. I have updated his CODE STATUS to DNR/DNI and we are currently continuing his care we do have room to go up on diuretic as well as vasoactive medication. He is producing urine so hopefully we will continue to diurese with minimal adverse effect to the kidneys. Coding Level of Care Code None
[2020-08-20] MEDS: FUROSEMIDE 100 MG in DEXTROSE 5% 90 ML IV SCH ×6 (01:26→22:57)
[2020-08-20 05:41] LABS: Basophils # (auto) 0.01 K/uL (0-0.2); Basophils % (auto) 0.1 %; Eosinophils # (auto) 0.18 K/uL (0-0.5); Eosinophils % (auto) 2.4 %; Hematocrit (blood only) 25.6 % (42-52); Hemoglobin 8.1 g/dL (14.0-18.0); Immature Granulocytes # (auto) 0.02 K/uL (0.00-0.02); Immature Granulocytes % (auto) 0.3 %; Lymphocytes # (auto) 0.93 K/uL (1.2-3.4); Lymphocytes % (auto) 12.3 %; Mean Corpuscular Hemoglobin 29.6 pg (25-34); Mean Corpuscular Hgb Conc 31.6 g/dL (32-36); Mean Corpuscular Volume 93.4 fL (80-100); Mean Platelet Volume 11.5 fL (7.4-10.4); Monocytes # (auto) 0.58 K/uL (0.11-0.59); Monocytes % (auto) 7.7 %; Neutrophils # (auto) 5.84 K/uL (1.4-6.5); Neutrophils % (auto) 77.2 %; Platelet Count 225 K/uL (130-400); RDW Coefficient of Variation 15.8 % (11.5-14.5); RDW Standard Deviation 53.6 fL (36.4-46.3); Red Blood Count 2.74 M/uL (4.7-6.1); White Blood Count 7.56 K/uL (4.8-10.8)
[2020-08-20 06:07] LABS: INR 4.3 (0.9-1.1); Prothrombin Time 39.2 Seconds (9.0-12.0)
[2020-08-20 06:19] LABS: Albumin Level 2.1 gm/dl (3.4-5.0); BUN Creatinine Ratio 24.3 (10-20); Calcium 7.6 mg/dl (8.5-10.1); Creatinine Clr Calc Pharmacy 36.2 ml/min; Est GFR (African American) 32.3 ml/min; Est GFR (Non-African American) 27.9 ml/min; Magnesium 2.2 mg/dl (1.8-2.4); Potassium 3.2 mmol/L (3.5-5.1)
[2020-08-20] MEDS: INSULIN ASPART 100 UNITS/ML 3 ML PEN SC SCH ×5 (06:34→21:03)
[2020-08-20 06:40] LABS: Albumin Globulin Ratio 0.5 (0.9-2); Phosphorus 4.2 mg/dl (2.5-4.9); Total Protein 6.1 gm/dl (6.4-8.2)
--- NOTE | 2020-08-20 08:29 | XRay Report ---
XR chest 1V portable CLINICAL HISTORY: Shortness of breath. COMPARISON STUDY: 08/19/2020 FINDINGS: The heart remains enlarged. There is a left subclavian pacer/defibrillator. There are posts urgical changes of a midline sternotomy and valvular replacement. There is persistent but improving p ulmonary edema. There are small bilateral pleural effusions.[ IMPRESSION: Slight improvement in the pulmonary edema pattern. Small bilateral pleural effusions. ACT 112: Negative or not required by law. Electronically signed by: Adrien Cruz M.D. 08/20/2020 8:27 AM
[2020-08-20] MEDS: MICONAZOLE NITRATE POWDER 43 GM EXT SCH ×2 (08:30→21:04)
[2020-08-20] MEDS: INSULIN GLARGINE SOLOSTAR 100 UNITS/ML 3 ML PEN SC SCH (08:30)
[2020-08-20] MEDS: POTASSIUM CHLORIDE / WTR 10 MEQ/100 ML PLCT IV SCH ×2 (08:36→09:54)
[2020-08-20] MEDS ORDERED: ICU PROTOCOL FOR HYPERGLYCEMIA SCH (09:00)
[2020-08-20] MEDS ORDERED: CYANOCOBALAMIN 1000 MCG/ML VIAL IM SCH (09:00)
--- NOTE | 2020-08-20 10:21 | Electrocardiogram Report ---
Test Reason : Blood Pressure : / mmHG Vent. Rate : 071 BPM Atrial Rate : 071 BPM P-R Int : 000 ms QRS Dur : 172 ms QT Int : 502 ms P-R-T Axes : 000 258 060 degrees QTc Int : 545 ms Normal sinus rhythm bi Ventricular-paced rhythm Abnormal ECG When compared with ECG of 18-AUG-2020 12:58, Vent. rate has decreased BY 17 BPM Confirmed by Keven Morrell ([id number]) on 08/20/2020 10:21:23 AM Referred By: REFERRED SELF Confirmed By:Keven Morrell
--- NOTE | 2020-08-20 10:42 | Critical Care Progress Note ---
Date of Service August 20, 2020 Assessment & Plan (1) Acute and chronic respiratory failure with hypoxia: Reason Critically Ill: 74-year-old male with acute on chronic congestive heart failure with acute on chronic respiratory failure and cardiorenal syndrome PLAN: Resp: --Acute on chronic hypoxic respiratory failure Secondary to acute systolic and diastolic CHF. He has a history of mitral and aortic valve replacement. History of bypass grafting. Followed by cardiology. Currently on dobutamine drips and Lasix drips. Followed by cardiology and nephrology respectively. Echo reviewed with an EF of 15 to 20%. Pulmonary artery systolic pressure on BiPAP 69 mmHg. --OBED Continue with CPAP at night --Pulmonary hypertension Type II Treatment as above CV: Acute congestive heart failure -Lasix infusion and dobutamine infusion He has advanced cardiomyopathy. Will consult palliative care. Fluids/Renal: Acute kidney injury on chronic kidney disease ID: Leukocytosis has resolved -Monitor fever curve GI/Nutrition: Cardiac diet LFTs suggestive hepatic congestion. Heme: Anemia of chronic disease DVT prophylaxis: INR is 4.3 today. Endocrine: ICU hyperglycemia protocol Vascular access: Peripheral IVs Code Status: DNR/DNI Disposition: ICU (2) OBED (obstructive sleep apnea): (3) Pulmonary edema: (4) CHF (congestive heart failure): (5) Pulmonary hypertension: Admission and Anticipated Discharge Date Admission Date: August 16, 2020 Subjective Patient seen examined this morning. Has some mild shortness of breath. Denies chest pain. No nausea or vomiting. Review of Systems Review of Systems: All systems reviewed & are unremarkable except as noted in HPI & below Physical Exam Physical Exam: General: Resting. nontoxic. Skin: Cool, dry, Head: Atraumatic Ears, nose, mouth and throat: Obscured by BiPAP Cardiovascular: Decreased capillary refill Respiratory: no respiratory distress Gastrointestinal: Non distended Musculoskeletal: No deformity Results & Data Results & Data ([facility]) Vital Signs (Past 12 Hours) Vital Signs Temp Pulse Resp BP Pulse Ox 08/20/20 10:00 73 22 99 08/20/20 09:34 72 23 105/56 L 99 08/20/20 09:00 73 23 99 08/20/20 08:39 106 H 31 H 93/68 L 93 08/20/20 08:34 72 28 H 120/72 100 08/20/20 08:24 78 33 H 116/64 94 08/20/20 08:17 71 23 110/53 L 100 08/20/20 08:00 69 22 99 08/20/20 07:34 69 21 120/61 99 08/20/20 07:09 70 19 99 08/20/20 07:00 98.1 F 70 19 99 08/20/20 05:37 97.7 F 08/20/20 05:34 69 20 115/68 97 08/20/20 05:00 74 27 H 92 08/20/20 04:34 75 25 H 109/75 98 08/20/20 04:00 70 21 99 08/20/20 03:35 70 22 108/57 L 98 08/20/20 03:00 75 22 97 08/20/20 02:58 70 20 98 08/20/20 02:34 73 24 116/66 99 08/20/20 02:00 70 20 96 08/20/20 01:43 71 21 107/69 98 08/20/20 01:00 71 23 98 08/20/20 00:59 76 22 95 08/20/20 00:35 74 25 H 130/58 L 97 08/20/20 00:22 75 08/20/20 00:00 97.9 F 75 21 95 08/19/20 23:34 76 28 H 124/61 93 08/19/20 23:00 75 26 H 94 Vital signs, labs and imaging reviewed. Coding Level of Care Code 43082 Subseq Hosp Care Lvl 3 Diagnoses Acute and chronic respiratory failure with hypoxia J96.21 OBED (obstructive sleep apnea) G47.33 Pulmonary edema J81.0 Chronicity: acute CHF (congestive heart failure) I50.9 Heart failure chronicity: acute on chronic Heart failure type: unspecified Pulmonary hypertension I27.20 (1) Pulmonary edema Chronicity: acute Qualified Code(s): J81.0 - Acute pulmonary edema (2) CHF (congestive heart failure) Heart failure chronicity: acute on chronic Heart failure type: unspecified Qualified Code(s): I50.9 - Heart failure, unspecified
[2020-08-20] MEDS ORDERED: Nursing to Pharmacy Communication SCH (10:45)
--- NOTE | 2020-08-20 11:12 | Cardiology Progress Note ---
Date of Service August 20, 2020 Assessment & Plan (1) Chronic HFrEF (heart failure with reduced ejection fraction): Patient with acute on chronic systolic heart failure, due to chronic ischemic cardiomyopathy. Echocardiogram performed yesterday 08/19/2020 revealed severe global left ventricular hypokinesis with ejection fraction in the range of 15-20%, and severe pulmonary hypertension, estimated pulmonary artery systolic pressure 69 mmHg -Previous echocardiogram 07/15/2020 with ejection fraction of 25-30% with inferior posterior hypokinesis to akinesis, apex akinetic. Moderate hypokinesis otherwise. -The patient has a longstanding history of complex cardiac disease. He initially underwent surgical aortic valve replacement in 2004. 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 He underwent CABG times one of the RCA, redo surgical bioprosthetic aortic valve replacement, and bioprosthetic mitral valve replacement at that time in 2013, having established with the undersigned shortly thereafter. -He underwent implantation of a biventricular pacemaker ICD in 2014. -In November,, he underwent cardiac catheterization at [facility] for non- STEMI/V. fib arrest with successful defibrillation by his AICD, severe [place] vessel RCA disease known to be present, with patent graft, and nonobstructive disease elsewhere. Medical management recommended. 12/30/2019, presented with recurrent non-STEMI, troponin peaked at greater than 200 ng/ml overnight. And severe left ventricular systolic function noted in the interim with multiple recurrent hospital stays. -Patient has had slight improvement in terms of urine output on furosemide and dobutamine, but likely palliative care ultimately indicated. Patient now DNR/DNI. -He is going to think about whether or not he wants to have the defibrillation capability of his ICD deactivated. -His ICD is functioning appropriately at present, he is nearing the elective replacement interval, down to 2 months on recent interrogation performed this hospital stay. If he has refractory VT, magnet can be utilized to prevent VT, VF storm. Anticipate need for [employer] entry level sales representative's assistance in deactivating his VT / VF therapies tomorrow. I had long discussion with patient, niece and her at bedside. Continue current level of care at present without escalation . Admission and Anticipated Discharge Date Admission Date: August 16, 2020 Subjective Patient seen in cardiology follow-up. He is hospitalized in the intensive care unit, room 111, and is currently on high flow oxygen 4 L/min, dobutamine infusion, furosemide infusion, and potassium chloride infusion. He is comfortable and conversant without acute distress. Family at bedside including his only family member, his niece, and her . Telemetry reveals sinus rhythm with ventricular pacing without significant ventricular arrhythmias or atrial fibrillation. Review of Systems Review of Systems: All systems reviewed & are unremarkable except as noted in HPI & below Physical Exam Physical Exam: Temp Pulse Resp BP Pulse Ox 36.7 C 73 22 105/56 L 99 08/20/20 07:00 08/20/20 10:00 08/20/20 10:00 08/20/20 09:34 08/20/20 10:00 Constitutional: Chronically ill in appearance Respiratory: Decreased breath sounds bilaterally at the bases Cardiovascular: Rate/Rhythm: regular rhythm Heart Sounds: no murmur Vessels: + JVD Extremities: no edema Gastrointestinal (Abdomen): normal bowel sounds, soft, nontender, no hepatosplenomegaly Neurologic: PERRL, EOMI, accommodation nl, no face palsy, no dysarthria Results & Data ([facility]) Vital Signs (Past 12 Hours) Vital Signs Temp Pulse Resp BP Pulse Ox 08/20/20 10:00 73 22 99 08/20/20 09:34 72 23 105/56 L 99 08/20/20 09:00 73 23 99 08/20/20 08:39 106 H 31 H 93/68 L 93 08/20/20 08:34 72 28 H 120/72 100 08/20/20 08:24 78 33 H 116/64 94 08/20/20 08:17 71 23 110/53 L 100 08/20/20 08:00 69 22 99 08/20/20 07:34 69 21 120/61 99 08/20/20 07:09 70 19 99 08/20/20 07:00 36.7 C 70 19 99 08/20/20 05:37 36.5 C 08/20/20 05:34 69 20 115/68 97 08/20/20 05:00 74 27 H 92 08/20/20 04:34 75 25 H 109/75 98 08/20/20 04:00 70 21 99 08/20/20 03:35 70 22 108/57 L 98 08/20/20 03:00 75 22 97 08/20/20 02:58 70 20 98 08/20/20 02:34 73 24 116/66 99 08/20/20 02:00 70 20 96 08/20/20 01:43 71 21 107/69 98 08/20/20 01:00 71 23 98 08/20/20 00:59 76 22 95 08/20/20 00:35 74 25 H 130/58 L 97 08/20/20 00:22 75 08/20/20 00:00 36.6 C 75 21 95 08/19/20 23:34 76 28 H 124/61 93 Laboratory Results Cardiac Enzymes 08/19/20 08/19/20 08/20/20 Range/Units 14:16 15:16 05:26 AST 388 H 211 H (15-37) U/L Coagulation 08/19/20 08/20/20 Range/Units 14:16 05:26 PT 63.6 H 39.2 H (9.0-12.0) Seconds CBC 08/20/20 Range/Units 05:26 WBC 7.56 (4.8-10.8) K/uL RBC 2.74 L (4.7-6.1) M/uL Hgb 8.1 L (14.0-18.0) g/dL Hct 25.6 L (42-52) % Plt Count 225 (130-400) K/uL Neut # (Auto) 5.84 (1.4-6.5) K/uL Lymph # (Auto) 0.93 L (1.2-3.4) K/uL Pitkin # (Auto) 0.58 (0.11-0.59) K/uL Eos # (Auto) 0.18 (0-0.5) K/uL Baso # (Auto) 0.01 (0-0.2) K/uL Comprehensive Metabolic Panel 08/19/20 08/19/20 08/20/20 Range/Units 14:16 15:16 05:26 Sodium 136 137 (136-145) mmol/L Potassium TNP 4.1 3.2 L D Chloride 101 101 (98-107) mmol/L Carbon Dioxide 25 27 (21-32) mmol/L BUN 48 H 55 H (7-18) mg/dl Creatinine 2.20 H 2.25 H (0.6-1.4) mg/dl Glucose 143 H 132 H (70-99) mg/dl Calcium 7.6 L 7.6 L (8.5-10.1) mg/dl AST 388 H 211 H (15-37) U/L ALT 180 H 138 H (12-78) U/L Alkaline Phosphatase 177 H 160 H (45-117) U/L Total Protein 6.3 L 6.1 L (6.4-8.2) gm/dl Albumin 2.1 L 2.1 L (3.4-5.0) gm/dl Intake and Output 08/19/20 08/20/20 08/20/20 22:59 06:59 14:59 Intake Total 296.376 / 777.376 181 / 777.376 479.517 / 479.517 Output Total 525 / 1675 875 / 1675 Balance -228.624 / -897.624 -694 / -897.624 479.517 / 479.517 Intake: IV 296.376 / 727.376 181 / 727.376 479.517 / 479.517 DOBUTamine HCL 500 mg In 66.793 / 66.793 112.517 / 112.517 Dextrose 5% 210 ml @ 2.5 MCG/KG /MIN 8.558 mls/hr IV .Q24H [facility] Rx#:[id number] Furosemide 100 mg In Dextrose 5 179.333 / 360.333 181 / 360.333 167 / 167 % 90 ml @ 20 MG/HR 20 mls/hr IV .Q5H [facility] Rx#:[id number] Phytonadione 2.5 mg In Sodium 50.25 / 50.25 Chloride 0.9% 50 ml @ 101 mls/ hr IV TODAY@1700 ONE Rx#: [id number] Potassium Chloride / Wtr 10 meq 200 / 200 In 100 ml @ 100 mls/hr IV Q1H [facility] Rx#:[id number] Output: Urine Amount (Catheter) 525 / 1675 875 / 1675 Matthews/Indwelling 525 / 1675 875 / 1675 Other: Weight 116.3 kg Weight Measurement Method Built in [facility] Diagnostic Findings EKG this morning reveals sinus rhythm with ventricular paced rhythm.
--- NOTE | 2020-08-20 11:37 | Hospitalist Progress Note ---
Date of Service August 20, 2020 Assessment & Plan (1) Acute respiratory failure with hypoxemia: acute hypoxemic respiratory failure secondary to pulmonary edema caused by decompensated CHF with ischemic cardiomyopathy biventricular heart failure. Regressed to worsening heart failure, underlying severe ischemic cardiomyopathy, Repeat echo done 08/19/2020 shows worsening of EF 15% Patient is currently in ICU, on IV dobutamine drip, Started on Lasix drip Urine output mildly improved with inotropic support, currently on negative balance, chest x-ray shows some improvement of pulmonary congestion Hypoxia has improved currently on 4 L oxygen via nasal cannula off BiPAP Progression of cardiomyopathy/end-stage heart failure overall prognosis remains very poor Patient and his family aware Patient is currently DNR/DNI after discussion with ICU attending last night continue with supportive care Developed oliguric renal failure, chest x-ray shows florid pulmonary congestion, BNP more than 35,000 worsening since admission. Elevation of LFTs with worsening of coagulopathy, Concern for hepatorenal syndrome caused by passive liver congestion with severe decompensated CHF Previous echo EF was 30%, repeat echo ordered Patient is transferred to ICU, ordered for IV dobutamine drip Very advanced cardiomyopathy with end-stage heart failure, overall prognosis remains extremely poor Patient and family aware, palliative care consulted Acute decompensated CHF with severe ischemic cardiomyopathy Presented with volume overload, hypoxemia with's severe pulmonary congestion, elevated proBNP volume overload Recent admission with similar symptoms, recent echo shows EF of 30-35% with ischemic cardiomyopathy. 1 diastolic dysfunction Repeat echo done yesterday 08/19/2020 shows worsening of cardiac function with global hypokinesis EF 15%(patient's niece updated about the echo finding) Dobutamine drip started in attempt to improve cardiac function Overall prognosis remains guarded (2) CAD (coronary artery disease): -History of coronary bypass completed in 2014 Has been on beta-varsha and atorvastatin Plavix: Oral medication will be kept on hold, respiratory failure/multiorgan dysfunction Presents with acute hypoxemic respiratory failure secondary to decompensated CHF No evidence of acute coronary event, limited troponin most likely secondary to demand ischemia-cardiology following Repeat echocardiogram ordered as worsening of cardiac function noted Prognosis remains guarded (3) Elevated troponin: Possible type II non-ST elevated MD/demand ischemia On admission intermittent chest pain chest discomfort possibly secondary to decompensated CHF No evidence of acute coronary event or plaque rupture, cardiology eval appreciated Cardiac function continues to decline in spite of aggressive diuresis, supportive care-respiratory ICU started on dobutamine drip (4) Hypertension: Hold all diuretics/cardiac decompensation Elevated LFTs/coagulopathy Possible from decompensated heart failure, passive liver congestion. Amiodarone/ statin discontinued, Liver ultrasound shows liver cirrhosis without acute liver or gallbladder disease Dobutamine drip to optimize cardiac function patient was given multiple dose of vitamin K for coagulopathy INR was more than 7 LFTs mildly improved, INR improved to 4.4 no evidence of bleeding (5) Hyperlipidemia: Statin discontinued for transaminitis (6) PAF (paroxysmal atrial fibrillation): Amiodarone discontinued, worsening of respiratory status ARDS, transaminitis Coumadin discontinued for coagulopathy vitamin K ordered (7) H/O mitral valve replacement: - s/p replacement in 2013 (8) H/O aortic valve replacement: - s/p replacement in 2013 (9) History of coronary artery bypass graft x 1: Present with mild elevation troponin, intermittent chest discomfort secondary to decompensated CHF Worsening of cardiac condition as outlined above (10) Pernicious anemia: - (11) CKD (chronic kidney disease) stage 4, GFR 15-29 ml/min: Acute renal failure with CKD stage IV, possible secondary to cardiac decompensation Developed oliguric renal failure, leading to progressive volume overload, nephrology consulted, Patient's urine output improved after being on dobutamine and Lasix drip Overall prognosis remains very poor (12) Diabetes mellitus, type 2: Insulin sliding scale, ICU pharmacy consult for glycemic management (13) DVT prophylaxis: -INR elevated CODE: DNR/DNI Disposition: Patient needs ICU monitoring while on dobutamine drip Lasix drip Plan of care updated to patient's niece POA at bedside Admission and Anticipated Discharge Date Admission Date: August 16, 2020 Subjective Follow-up visit for acute hypoxemic respiratory failure with pulmonary edema, secondary to severe ischemic cardiomyopathy with end-stage heart failure, acute on chronic respiratory failure Patient remained stable overnight, currently on dobutamine drip, Lasix drip. Has been off BiPAP, currently on 4 L oxygen via oxygen mask, Able to speak in complete sentences, appears to be comfortable, awake and alert States that he was able to sleep last night, does not have any chest heaviness or chest discomfort. No fever or chills minimum cough, Urine output improved overnight while on dobutamine drip Patient's POA/niece present at bedside Review of Systems Review of Systems: All systems reviewed & are unremarkable except as noted in Subjective Physical Exam Constitutional: WD/WN, vitals as above (Chronically ill-appearing, no apparent distress) + obese Eyes: + anicteric sclerae ENMT: external ear and nose normal, oropharynx normal Neck: normal visual inspection Respiratory: Auscultation: + diminished lung sounds, + crackles and + rales Cardiovascular: Rate/Rhythm: regular rate and regular rhythm Extremities: + pedal edema and + edema Gastrointestinal (Abdomen): Percussion/Palpation: abdomen soft; abdomen nontender and no ascites Skin: no rashes, warm and dry Neurologic: PERRL, EOMI, accommodation nl, no face palsy, no dysarthria Psychiatric: A+Ox3, euthymic affect Orientation: alert and oriented to person Results & Data Results & Data ([facility]) Vital Signs (Past 12 Hours) Vital Signs Temp Pulse Resp BP Pulse Ox 08/20/20 10:00 73 22 99 08/20/20 09:34 72 23 105/56 L 99 08/20/20 09:00 73 23 99 08/20/20 08:39 106 H 31 H 93/68 L 93 08/20/20 08:34 72 28 H 120/72 100 08/20/20 08:24 78 33 H 116/64 94 08/20/20 08:17 71 23 110/53 L 100 08/20/20 08:00 69 22 99 08/20/20 07:34 69 21 120/61 99 08/20/20 07:09 70 19 99 08/20/20 07:00 36.7 C 70 19 99 08/20/20 05:37 36.5 C 08/20/20 05:34 69 20 115/68 97 08/20/20 05:00 74 27 H 92 08/20/20 04:34 75 25 H 109/75 98 08/20/20 04:00 70 21 99 08/20/20 03:35 70 22 108/57 L 98 08/20/20 03:00 75 22 97 08/20/20 02:58 70 20 98 08/20/20 02:34 73 24 116/66 99 08/20/20 02:00 70 20 96 08/20/20 01:43 71 21 107/69 98 08/20/20 01:00 71 23 98 08/20/20 00:59 76 22 95 08/20/20 00:35 74 25 H 130/58 L 97 08/20/20 00:22 75 08/20/20 00:00 36.6 C 75 21 95 08/19/20 23:34 76 28 H 124/61 93
[2020-08-20] MEDS: ASCORBIC ACID 500 MG TAB PO SCH (21:03)
[2020-08-20] MEDS: DOCUSATE SODIUM 100 MG CAP PO SCH (21:03)
[2020-08-21] MEDS: FUROSEMIDE 100 MG in DEXTROSE 5% 90 ML IV SCH ×4 (04:29→19:49)
[2020-08-21 05:15] LABS: Eosinophils # (auto) 0.28 K/uL (0-0.5); Eosinophils % (auto) 4.1 %; Hematocrit (blood only) 26.8 % (42-52); Hemoglobin 8.3 g/dL (14.0-18.0); Immature Granulocytes # (auto) 0.01 K/uL (0.00-0.02); Immature Granulocytes % (auto) 0.1 %; Lymphocytes # (auto) 0.83 K/uL (1.2-3.4); Lymphocytes % (auto) 12.2 %; Mean Corpuscular Hemoglobin 28.9 pg (25-34); Mean Corpuscular Volume 93.4 fL (80-100); Mean Platelet Volume 11.7 fL (7.4-10.4); Monocytes # (auto) 0.57 K/uL (0.11-0.59); Monocytes % (auto) 8.4 %; Neutrophils # (auto) 5.13 K/uL (1.4-6.5); Neutrophils % (auto) 75.2 %; Platelet Count 234 K/uL (130-400); RDW Coefficient of Variation 15.4 % (11.5-14.5); RDW Standard Deviation 52.7 fL (36.4-46.3); Red Blood Count 2.87 M/uL (4.7-6.1); White Blood Count 6.82 K/uL (4.8-10.8)
[2020-08-21 05:23] LABS: INR 2.7 (0.9-1.1)
[2020-08-21 06:07] LABS: Albumin Globulin Ratio 0.6 (0.9-2); Albumin Level 2.2 gm/dl (3.4-5.0); BUN Creatinine Ratio 26.4 (10-20); Bilirubin,Total 0.8 mg/dl (0.2-1); Calcium 8.1 mg/dl (8.5-10.1); Creatinine Clr Calc Pharmacy 35.9 ml/min; Est GFR (African American) 32.7 ml/min; Est GFR (Non-African American) 28.2 ml/min; Magnesium 2.1 mg/dl (1.8-2.4); Phosphorus 3.7 mg/dl (2.5-4.9); Potassium 3.2 mmol/L (3.5-5.1); Total Protein 6.2 gm/dl (6.4-8.2)
[2020-08-21] MEDS: CHOLECALCIFEROL 1,000 UNITS 25 MCG TAB PO SCH (08:23)
[2020-08-21] MEDS: ASCORBIC ACID 500 MG TAB PO SCH ×2 (08:23→21:04)
[2020-08-21] MEDS: PANTOprazole 40 MG TAB PO SCH (08:24)
[2020-08-21] MEDS: MICONAZOLE NITRATE POWDER 43 GM EXT SCH ×2 (08:24→21:04)
[2020-08-21] MEDS: METOPROLOL SUCC 50MG EXT REL TAB PO SCH (08:24)
[2020-08-21] MEDS: INSULIN GLARGINE SOLOSTAR 100 UNITS/ML 3 ML PEN SC SCH (08:25)
[2020-08-21] MEDS: INSULIN ASPART 100 UNITS/ML 3 ML PEN SC SCH ×4 (08:26→20:45)
[2020-08-21] MEDS: MAGNESIUM OXIDE 400 MG TAB PO SCH (08:29)
[2020-08-21] MEDS: DOCUSATE SODIUM 100 MG CAP PO SCH ×2 (08:29→21:04)
[2020-08-21] MEDS: POLYETHYLENE (MIRALAX) 17 GM PACK PO SCH (08:29)
[2020-08-21] MEDS ORDERED: POTASSIUM CHLORIDE CRTAB 20 MEQ TABCR PO STA (10:06)
--- NOTE | 2020-08-21 10:56 | Critical Care Progress Note ---
Date of Service August 21, 2020 Assessment & Plan (1) Acute and chronic respiratory failure with hypoxia: Patient discussed on multidisciplinary rounds. Discussed with digital press operator would like to keep dobutamine in place along with diuretic therapy. Reason Critically Ill: 74-year-old male with acute on chronic congestive heart failure with acute on chronic respiratory failure and cardiorenal syndrome PLAN: Resp: --Acute on chronic hypoxic respiratory failure Secondary to acute systolic and diastolic CHF. He has a history of mitral and aortic valve replacement. History of bypass grafting. Followed by cardiology. Currently on dobutamine drips and Lasix drips. Followed by cardiology and nephrology respectively. Echo reviewed with an EF of 15 to 20%. Pulmonary artery systolic pressure on BiPAP 69 mmHg. --OBED Continue with CPAP at night --Pulmonary hypertension Type II Treatment as above CV: Acute congestive heart failure -Lasix infusion and dobutamine infusion He has advanced cardiomyopathy. Will consult palliative care. Fluids/Renal: Acute kidney injury on chronic kidney disease ID: Leukocytosis has resolved -Monitor fever curve GI/Nutrition: Cardiac diet LFTs suggestive of hepatic congestion. Heme: Anemia of chronic disease DVT prophylaxis: INR is 2.7 today. Endocrine: ICU hyperglycemia protocol Vascular access: Peripheral IVs Code Status: DNR/DNI Disposition: Okay to transfer to floor. Discussed with hospitalist. (2) OBED (obstructive sleep apnea): (3) Pulmonary edema: (4) CHF (congestive heart failure): (5) Pulmonary hypertension: Admission and Anticipated Discharge Date Admission Date: August 16, 2020 Subjective Patient sitting up in bed. He is talking on the phone. No significant overnight issues. On dobutamine 2.5. Review of Systems Review of Systems: All systems reviewed & are unremarkable except as noted in HPI & below Physical Exam Physical Exam: General: Resting. nontoxic. Skin: Cool, dry, Head: Atraumatic Ears, nose, mouth and throat: Obscured by BiPAP Cardiovascular: Decreased capillary refill Respiratory: no respiratory distress Gastrointestinal: Non distended Musculoskeletal: No deformity Results & Data Results & Data ([facility]) Vital Signs (Past 12 Hours) Vital Signs Temp Pulse Resp BP Pulse Ox 08/21/20 09:35 74 26 H 91/55 L 97 08/21/20 09:00 73 24 99 08/21/20 08:34 77 19 108/52 L 100 08/21/20 08:00 97.7 F 74 19 99 08/21/20 07:34 74 19 121/58 L 99 08/21/20 07:00 75 17 98 08/21/20 05:34 69 17 122/61 98 08/21/20 04:34 97.7 F 76 24 109/64 99 08/21/20 03:34 73 21 115/66 98 08/21/20 02:34 72 27 H 105/61 99 08/21/20 01:34 69 19 116/65 99 08/21/20 00:34 72 20 118/70 98 08/21/20 00:00 97.7 F 08/20/20 23:34 70 19 117/66 97 Vital signs, labs and imaging reviewed. Coding Level of Care Code 87121 Subseq Hosp Care Lv 3 Diagnoses Acute and chronic respiratory failure with hypoxia J96.21 OBED (obstructive sleep apnea) G47.33 Pulmonary edema J81.0 Chronicity: acute CHF (congestive heart failure) I50.9 Heart failure chronicity: acute on chronic Heart failure type: unspecified Pulmonary hypertension I27.20 (1) Pulmonary edema Chronicity: acute Qualified Code(s): J81.0 - Acute pulmonary edema (2) CHF (congestive heart failure) Heart failure chronicity: acute on chronic Heart failure type: unspecified Qualified Code(s): I50.9 - Heart failure, unspecified
--- NOTE | 2020-08-21 12:55 | Cardiology Progress Note ---
Date of Service August 21, 2020 Assessment & Plan (1) Chronic HFrEF (heart failure with reduced ejection fraction): Patient with acute on chronic systolic heart failure, due to chronic ischemic cardiomyopathy. Echocardiogram performed yesterday 08/19/2020 revealed severe global left ventricular hypokinesis with ejection fraction in the range of 15-20%, and severe pulmonary hypertension, estimated pulmonary artery systolic pressure 69 mmHg -Previous echocardiogram 07/15/2020 with ejection fraction of 25-30% with inferior posterior hypokinesis to akinesis, apex akinetic. Moderate hypokinesis otherwise. -The patient has a longstanding history of complex cardiac disease. He initially underwent surgical aortic valve replacement in 2004. In 2013 he initially presented to [place] , then transfered to [facility] with cardiogenic shock, was found to have severe prosthetic aortic valve stenosis as well as severe mitral regurgitation with a flail mitral valve leaflet and a high-grade occlusion of the right coronary artery. He underwent CABG times one of the RCA, redo surgical bioprosthetic aortic valve replacement, and bioprosthetic mitral valve replacement at that time in 2013, having established with the undersigned shortly thereafter. -He underwent implantation of a biventricular pacemaker ICD in 2014. -In November,, he underwent cardiac catheterization at [facility] for non- STEMI/V. fib arrest with successful defibrillation by his AICD, severe [place] vessel RCA disease known to be present, with patent graft, and nonobstructive disease elsewhere. Medical management recommended. 12/30/2019, presented with recurrent non-STEMI, troponin peaked at greater than 200 ng/ml overnight. And severe left ventricular systolic function noted in the interim with multiple recurrent hospital stays. Clinically he is improving with dobutamine and Lasix drips. Some medication changes were made this morning: His metoprolol was restarted and dobutamine discontinued. I do not believe that this is the most prudent course of action. Dobutamine drip to be restarted and will defer dosing of Lasix drip to our nephrology colleagues. His renal function has remained stable and is now over 2 L negative since being started on the drips. He is anemic with a hemoglobin of 8.3. I believe he would benefit from transfusion to maintain hemoglobin greater than 10 but given his volume overload and difficulty with diuresis we will hold off on transfusion and continue to follow. If he has refractory VT, magnet can be utilized to prevent VT, VF storm. Anticipate need for [employer] underwriting account representative's assistance in deactivating his VT / VF therapies tomorrow. Appreciate input from our palliative care colleagues. Admission and Anticipated Discharge Date Admission Date: August 16, 2020 Subjective Patient seen and examined, chart reviewed and case discussed with our nephrology and critical care colleagues. Clinically the patient states he is feeling better today. He notes his breathing is easier and he is now on nasal cannula. He denies chest pain, palpitations, lightheadedness, dizziness or syncope. Telemetry reviewed: Ventricularly paced rhythm. Review of Systems Review of Systems: All systems reviewed & are unremarkable except as noted in HPI & below Physical Exam Physical Exam: General: Awake, alert and oriented x 3. Conversational dyspnea while on BiPAP. HEENT: Normocephalic, atraumatic. Pupils equal, round and reactive to light and accommodation. Extraocular muscles are intact. Anicteric sclera. Moist mucous membranes. Neck: No JVD. No bruit. Cardiovascular: Regular. Positive S-4. Normal S-1 and S-2. No S-3. 3/6 mid to late systolic ejection murmur, greatest at the right sternal border, second intercostal space with radiation to the bilateral carotids. No rubs. Pulmonary: Poor air movement diffusely with scattered rhonchi. Dry bibasilar crackles present as well. Abdomen: Bowel sounds x 4, soft. No rebound, guarding or tenderness. No organomegaly. Extremities: No clubbing, cyanosis or edema. +2 pedal pulses bilaterally. Skin: Warm and dry. Results & Data ([facility]) Vital Signs (Past 12 Hours) Vital Signs Temp Pulse Resp BP Pulse Ox 08/21/20 09:35 74 26 H 91/55 L 97 08/21/20 09:00 73 24 99 08/21/20 08:34 77 19 108/52 L 100 08/21/20 08:00 36.5 C 74 19 99 08/21/20 07:34 74 19 121/58 L 99 08/21/20 07:00 75 17 98 08/21/20 05:34 69 17 122/61 98 08/21/20 04:34 36.5 C 76 24 109/64 99 08/21/20 03:34 73 21 115/66 98 08/21/20 02:34 72 27 H 105/61 99 08/21/20 01:34 69 19 116/65 99
--- NOTE | 2020-08-21 13:32 | Progress Notes ---
DATE: 08/21/2020 NEPHROLOGY PROGRESS NOTE SUBJECTIVE: The patient appears to be better from breathing standpoint. He was on Lasix and dobutamine drip up until this morning and actually that worked pretty good as his urine output was a lot more yesterday, it was about 2750 mL, and he also feels somewhat better and less edematous. OBJECTIVE: VITAL SIGNS: Blood pressure is 91/55, pulse rate 74, respiratory rate 26, temperature 36.5, 97% on 4 liter nasal cannula. HEENT: Mucous membranes moist. NECK: Supple. No jugular venous distention. CHEST: Bilaterally decreased breath sounds. CARDIOVASCULAR: S1, S2 irregular. Soft systolic murmur heard. ABDOMEN: Soft, nontender. EXTREMITIES: Show trace edema. LABORATORY TEST: From this morning shows sodium 133, potassium 3.2, chloride 96, BUN is 59, creatinine is 2.23, which has been fairly stable for the last 5 days. Hemoglobin is 8.3. ASSESSMENT AND PLAN: A 74-year-old male with complicated cardiac history and has been labeled essentially as end-stage cardiac disease at this point by cardiology. He was admitted with congestive heart failure. He has known chronic kidney disease at baseline, but in the last few days, it has gotten somewhat worse. Acute renal failure: The acute component is probably related with a cardiorenal situation. However, creatinine has remained fairly stable now for the last 5 days despite diuretics. His urine output was quite good, yesterday at 2750 mL with dobutamine and Lasix drip. RECOMMENDATIONS: It is reasonable to continue with the Lasix and dobutamine drip. However, I will defer this to cardiology given that he has been labeled as end-stage cardiac disease. It is obvious that his kidneys do work better when he is on combined Lasix and dobutamine drip.
--- NOTE | 2020-08-21 17:05 | Hospitalist Progress Note ---
Date of Service August 21, 2020 Assessment & Plan (1) Acute respiratory failure with hypoxemia: acute hypoxemic respiratory failure secondary to pulmonary edema caused by decompensated CHF with ischemic cardiomyopathy biventricular heart failure. Currently remains stable on IV dobutamine and Lasix drip Regressed to worsening heart failure, underlying severe ischemic cardiomyopathy, Repeat echo done 08/19/2020 shows worsening of EF 15% Urine improved with inotropic support, currently on negative balance, chest x- ray shows some improvement of pulmonary congestion Hypoxia has improved currently on 3-4 L oxygen via nasal cannula off BiPAP Progression of cardiomyopathy/end-stage heart failure overall prognosis remains very poor Patient and his family aware Patient is currently DNR/DNI continue with supportive care Developed oliguric renal failure, chest x-ray shows florid pulmonary congestion, BNP more than 35,000 worsening since admission. Elevation of LFTs with worsening of coagulopathy, Concern for hepatorenal syndrome caused by passive liver congestion with severe decompensated CHF Previous echo EF was 30%, repeat echo ordered Patient was transferred to ICU, ordered for IV dobutamine drip Very advanced cardiomyopathy with end-stage heart failure, overall prognosis remains extremely poor Patient and family aware, palliative care consulted Acute decompensated CHF with severe ischemic cardiomyopathy Presented with volume overload, hypoxemia with's severe pulmonary congestion, elevated proBNP volume overload Recent admission with similar symptoms, recent echo shows EF of 30-35% with ischemic cardiomyopathy. 1 diastolic dysfunction Repeat echo done yesterday 08/19/2020 shows worsening of cardiac function with global hypokinesis EF 15%(patient's niece updated about the echo finding) Dobutamine drip started in attempt to improve cardiac function Overall prognosis remains guarded (2) CAD (coronary artery disease): -History of coronary bypass completed in 2014 Has been on beta-varsha and atorvastatin Plavix: Oral medication will be kept on hold, respiratory failure/multiorgan dysfunction Presents with acute hypoxemic respiratory failure secondary to decompensated CHF No evidence of acute coronary event, limited troponin most likely secondary to demand ischemia-cardiology following Repeat echo shows worsening of cardiac function with EF of 15% Prognosis remains guarded (3) Elevated troponin: Possible type II non-ST elevated DC/demand ischemia -in the setting of cardiogenic shock/severe ischemic cardiomyopathy On admission intermittent chest pain chest discomfort possibly secondary to decompensated CHF No evidence of acute coronary event or plaque rupture, cardiology eval appreciated (4) Hypertension: Again IV Lasix drip Elevated LFTs/coagulopathy Possible from decompensated heart failure, passive liver congestion. Amiodarone/ statin discontinued, Liver ultrasound shows liver cirrhosis without acute liver or gallbladder disease Dobutamine drip to optimize cardiac function patient was given multiple dose of vitamin K for coagulopathy INR was more than 7 LFTs/INR improved after starting on dobutamine, (5) Hyperlipidemia: Statin discontinued for transaminitis (6) PAF (paroxysmal atrial fibrillation): Amiodarone discontinued, worsening of respiratory status ARDS, transaminitis Coumadin discontinued for coagulopathy vitamin K ordered (7) H/O mitral valve replacement: - s/p replacement in 2013 (8) H/O aortic valve replacement: - s/p replacement in 2013 (9) History of coronary artery bypass graft x 1: Present with mild elevation troponin, intermittent chest discomfort secondary to decompensated CHF Worsening of cardiac condition as outlined above (10) Pernicious anemia: - (11) CKD (chronic kidney disease) stage 4, GFR 15-29 ml/min: Acute renal failure with CKD stage IV, possible secondary to cardiac decompensation Developed oliguric renal failure, leading to progressive volume overload, nephrology consulted, Patient's urine output improved after being on dobutamine and Lasix drip Overall prognosis remains very poor (12) Diabetes mellitus, type 2: Insulin sliding scale, (13) DVT prophylaxis: -INR elevated CODE: DNR/DNI Disposition: Overall very poor prognosis, limited life expectancy, palliative care consulted Admission and Anticipated Discharge Date Admission Date: August 16, 2020 Subjective Patient currently on nasal cannula, improvement of orthopnea, No chest heaviness Feels much better, denies of any shortness of breath No fever or chills Review of Systems Review of Systems: All systems reviewed & are unremarkable except as noted in Subjective Physical Exam Constitutional: WD/WN, vitals as above (Chronically ill-appearing, no apparent distress) + obese Eyes: + anicteric sclerae ENMT: external ear and nose normal, oropharynx normal Neck: normal visual inspection Respiratory: Auscultation: + diminished lung sounds, + crackles and + rales Cardiovascular: Rate/Rhythm: regular rate and regular rhythm Extremities: + pedal edema and + edema Gastrointestinal (Abdomen): Percussion/Palpation: abdomen soft; abdomen nontender and no ascites Skin: no rashes, warm and dry Neurologic: PERRL, EOMI, accommodation nl, no face palsy, no dysarthria Psychiatric: A+Ox3, euthymic affect Results & Data Results & Data ([facility]) Vital Signs (Past 12 Hours) Vital Signs Temp Pulse Pulse Resp BP BP Pulse Ox 08/21/20 15:32 36.3 C L 75 18 115/63 97 08/21/20 09:35 74 26 H 91/55 L 97 08/21/20 09:00 73 24 99 08/21/20 08:34 77 19 108/52 L 100 08/21/20 08:00 36.5 C 74 19 99 08/21/20 07:34 74 19 121/58 L 99 08/21/20 07:00 75 17 98 08/21/20 05:34 69 17 122/61 98
[2020-08-21] MEDS ORDERED: STAT IV Infusion **Titration per Protocol STA (22:22)
[2020-08-22] MEDS: FUROSEMIDE 100 MG in DEXTROSE 5% 90 ML IV SCH ×5 (01:03→20:41)
[2020-08-22 07:34] LABS: Eosinophils # (auto) 0.23 K/uL (0-0.5); Eosinophils % (auto) 3.8 %; Hematocrit (blood only) 27.5 % (42-52); Hemoglobin 8.8 g/dL (14.0-18.0); Immature Granulocytes # (auto) 0.02 K/uL (0.00-0.02); Immature Granulocytes % (auto) 0.3 %; Lymphocytes # (auto) 0.98 K/uL (1.2-3.4); Lymphocytes % (auto) 16.2 %; Mean Corpuscular Hemoglobin 29.4 pg (25-34); Mean Platelet Volume 11.4 fL (7.4-10.4); Monocytes # (auto) 0.54 K/uL (0.11-0.59); Monocytes % (auto) 8.9 %; Neutrophils # (auto) 4.28 K/uL (1.4-6.5); Neutrophils % (auto) 70.8 %; Platelet Count 242 K/uL (130-400); RDW Coefficient of Variation 15.6 % (11.5-14.5); RDW Standard Deviation 51.9 fL (36.4-46.3); Red Blood Count 2.99 M/uL (4.7-6.1); White Blood Count 6.05 K/uL (4.8-10.8)
[2020-08-22 07:54] LABS: INR 2.3 (0.9-1.1); Prothrombin Time 21.9 Seconds (9.0-12.0)
[2020-08-22 08:12] LABS: Albumin Level 2.2 gm/dl (3.4-5.0); Calcium 8.6 mg/dl (8.5-10.1); Creatinine Clr Calc Pharmacy 38.3 ml/min; Est GFR (African American) 35.1 ml/min; Est GFR (Non-African American) 30.3 ml/min; Potassium 3.1 mmol/L (3.5-5.1)
[2020-08-22 08:15] LABS: Albumin Globulin Ratio 0.6 (0.9-2); Bilirubin,Total 0.6 mg/dl (0.2-1); Total Protein 6.2 gm/dl (6.4-8.2)
[2020-08-22] MEDS: INSULIN ASPART 100 UNITS/ML 3 ML PEN SC SCH ×4 (08:55→20:53)
[2020-08-22] MEDS: ASCORBIC ACID 500 MG TAB PO SCH ×2 (08:56→20:48)
[2020-08-22] MEDS: PANTOprazole 40 MG TAB PO SCH (08:56)
[2020-08-22] MEDS: INSULIN GLARGINE SOLOSTAR 100 UNITS/ML 3 ML PEN SC SCH (08:57)
[2020-08-22] MEDS: MICONAZOLE NITRATE POWDER 43 GM EXT SCH ×2 (08:57→20:49)
[2020-08-22] MEDS: DOCUSATE SODIUM 100 MG CAP PO SCH ×2 (10:25→20:53)
[2020-08-22] MEDS: POLYETHYLENE (MIRALAX) 17 GM PACK PO SCH (10:25)
[2020-08-22] MEDS: MAGNESIUM OXIDE 400 MG TAB PO SCH (10:25)
--- NOTE | 2020-08-22 10:58 | Cardiology Progress Note ---
Date of Service August 22, 2020 Assessment & Plan (1) Chronic HFrEF (heart failure with reduced ejection fraction): Patient with acute on chronic systolic heart failure, due to chronic ischemic cardiomyopathy. Echocardiogram performed yesterday 08/19/2020 revealed severe global left ventricular hypokinesis with ejection fraction in the range of 15-20%, and severe pulmonary hypertension, estimated pulmonary artery systolic pressure 69 mmHg -Previous echocardiogram 07/15/2020 with ejection fraction of 25-30% with inferior posterior hypokinesis to akinesis, apex akinetic. Moderate hypokinesis otherwise. -The patient has a longstanding history of complex cardiac disease. He initially underwent surgical aortic valve replacement in 2004. In 2013 he initially presented to [place] , then transfered to [facility] with cardiogenic shock, was found to have severe prosthetic aortic valve stenosis as well as severe mitral regurgitation with a flail mitral valve leaflet and a high-grade occlusion of the right coronary artery. He underwent CABG times one of the RCA, redo surgical bioprosthetic aortic valve replacement, and bioprosthetic mitral valve replacement at that time in 2013, having established with the undersigned shortly thereafter. -He underwent implantation of a biventricular pacemaker ICD in 2014. -In November,, he underwent cardiac catheterization at [facility] for non- STEMI/V. fib arrest with successful defibrillation by his AICD, severe [place] vessel RCA disease known to be present, with patent graft, and nonobstructive disease elsewhere. Medical management recommended. 12/30/2019, presented with recurrent non-STEMI, troponin peaked at greater than 200 ng/ml overnight. And severe left ventricular systolic function noted in the interim with multiple recurrent hospital stays. Clinically he is improving with dobutamine and Lasix drips. Another 2 L negative overnight. Would continue. He is anemic with a hemoglobin of 8.3. I believe he would benefit from transfusion to maintain hemoglobin greater than 10 but given his volume overload and difficulty with diuresis we will hold off on transfusion and continue to follow. If he has refractory VT, magnet can be utilized to prevent VT, VF storm. Anticipate need for [employer] advertising sales representative's assistance in deactivating his VT / VF therapies tomorrow. Appreciate input from our palliative care colleagues. Recommend PT/OT evaluation. Consider psychiatric evaluation given worsening depression. Admission and Anticipated Discharge Date Admission Date: August 16, 2020 Subjective Patient seen and examined, chart reviewed. States his breathing is improving but he is getting downtrodden given the fact that he is not been out of bed in some time and unable to ambulate. States breathing is improved and diuresing well. Denies chest pain, palpitations, lightheadedness, dizziness or syncope. Telemetry reviewed: Sinus rhythm with ventricular pacing. Review of Systems Review of Systems: All systems reviewed & are unremarkable except as noted in HPI & below Physical Exam Physical Exam: General: Awake, alert and oriented x 3. Conversational dyspnea while on BiPAP. HEENT: Normocephalic, atraumatic. Pupils equal, round and reactive to light and accommodation. Extraocular muscles are intact. Anicteric sclera. Moist mucous membranes. Neck: No JVD. No bruit. Cardiovascular: Regular. Positive S-4. Normal S-1 and S-2. No S-3. 3/6 mid to late systolic ejection murmur, greatest at the right sternal border, second intercostal space with radiation to the bilateral carotids. No rubs. Pulmonary: Poor air movement diffusely with scattered rhonchi. Dry bibasilar crackles present as well. Abdomen: Bowel sounds x 4, soft. No rebound, guarding or tenderness. No organomegaly. Extremities: No clubbing, cyanosis or edema. +2 pedal pulses bilaterally. Skin: Warm and dry. Results & Data ([facility]) Vital Signs (Past 12 Hours) Vital Signs Temp Pulse Pulse Resp BP Pulse Ox 08/22/20 08:00 36.9 C 60 18 110/63 93 08/22/20 03:24 68 19 94 08/22/20 03:21 36.8 C 69 18 104/64 99 08/22/20 01:17 67 131/72 08/21/20 23:52 36.8 C 70 18 89/48 L 99
--- NOTE | 2020-08-22 12:16 | Nephrology Progress Note ---
Date of Service August 22, 2020 Assessment & Plan Admission and Anticipated Discharge Date Admission Date: August 16, 2020 Subjective NEPHROLOGY PROGRESS NOTE SUBJECTIVE: The patient appears to be better from breathing standpoint. on Lasix and dobutamine drip up until this morning and actually that worked pretty good as his urine output was a lot and he also feels somewhat better and less edematous. OBJECTIVE: HEENT: Mucous membranes moist. NECK: Supple. No jugular venous distention. CHEST: Bilaterally decreased breath sounds. CARDIOVASCULAR: S1, S2 irregular. Soft systolic murmur heard. ABDOMEN: Soft, nontender. EXTREMITIES: Show trace edema. LABORATORY TEST: Creat stable. K is low. ASSESSMENT AND PLAN: A 74-year-old male with complicated cardiac history and has been labeled essentially as end-stage cardiac disease at this point by cardiology. He was admitted with congestive heart failure. He has known chronic kidney disease at baseline, but in the last few days, it has gotten somewhat worse. Acute renal failure: The acute component is probably related with a cardiorenal situation. However, creatinine has remained fairly stable now for the last 5 days despite diuretics at just over 2. His urine output was quite good, with dobutamine and Lasix drip. Low K and will correct RECOMMENDATIONS: It is reasonable to continue with the Lasix and dobutamine drip. However, I will defer this to cardiology given that he has been labeled as end-stage cardiac disease. It is obvious that his kidneys do work better when he is on combined Lasix and dobutamine drip. Also add k.cl 20 bid. Results & Data ([facility]) Vital Signs (Past 12 Hours) Vital Signs Temp Pulse Pulse Resp BP Pulse Ox 08/22/20 08:00 36.9 C 60 18 110/63 93 08/22/20 03:24 68 19 94 08/22/20 03:21 36.8 C 69 18 104/64 99 08/22/20 01:17 67 131/72
[2020-08-22] MEDS: POTASSIUM CHLORIDE CRTAB 20 MEQ TABCR PO SCH ×2 (12:50→20:49)
--- NOTE | 2020-08-22 14:47 | Hospitalist Progress Note ---
Date of Service August 22, 2020 Assessment & Plan (1) Acute respiratory failure with hypoxemia: Acute hypoxemic respiratory failure secondary to pulmonary edema caused by decompensated CHF with ischemic cardiomyopathy biventricular heart failure. Acute decompensated CHF with severe ischemic cardiomyopathy Presented with volume overload, hypoxemia with's severe pulmonary congestion, elevated proBNP volume overload Currently patient is on 3 L of nasal cannula. Appreciate cardiology and nephrology input. Adequate urine output in the last [address] Matthews catheter in place for accurate ins and outs along with daily weights. Currently remains on Lasix infusion and dobutamine. Most recent transthoracic echo with a EF of 15% on 08/19/2020. Most recent chest x-ray with improvement in pulmonary congestion. Progression of cardiomyopathy/end-stage heart failure overall prognosis remains very poor Patient and his family aware Patient is currently DNR/DNI Continue with supportive care. (2) CKD (chronic kidney disease) stage 4, GFR 15-29 ml/min: Acute renal failure with CKD stage IV, possible secondary to cardiac decompensation Developed oliguric renal failure, leading to progressive volume overload, nephrology consulted. Concern for hepatorenal syndrome caused by passive liver congestion with severe decompensated CHF. Patient had adequate urine output in the last 24 hours. Matthews catheter is in place. Patient has responded to Lasix/dobutamine combination. (3) CAD (coronary artery disease): History of coronary bypass completed in 2014 Continue with CORPORATE SAFETY MANAGER beta-varsha/Lipitor/Plavix (4) Elevated troponin: Possible type II non-ST elevated IN/demand ischemia -in the setting of cardiogenic shock/severe ischemic cardiomyopathy On admission intermittent chest pain chest discomfort possibly secondary to decompensated CHF No evidence of acute coronary event or plaque rupture, cardiology eval appreciated (5) Hypertension: Again IV Lasix drip Elevated LFTs/coagulopathy Possible from decompensated heart failure, passive liver congestion. Amiodarone/ statin discontinued, Liver ultrasound shows liver cirrhosis without acute liver or gallbladder disease. (6) Hyperlipidemia: Statin discontinued for transaminitis (7) PAF (paroxysmal atrial fibrillation): Amiodarone discontinued, worsening of respiratory status ARDS, transaminitis (8) H/O mitral valve replacement: - s/p replacement in 2013 (9) H/O aortic valve replacement: - s/p replacement in 2013 (10) History of coronary artery bypass graft x 1: Present with mild elevation troponin, intermittent chest discomfort secondary to decompensated CHF Worsening of cardiac condition as outlined above (11) Pernicious anemia: Hgb of 8.8 today, will continue to monitor. (12) Diabetes mellitus, type 2: Insulin sliding scale, (13) DVT prophylaxis: -INR of 2.1 CODE: DNR/DNI Disposition: Overall very poor prognosis, limited life expectancy, palliative care consulted Admission and Anticipated Discharge Date Admission Date: August 16, 2020 Subjective Patient is awake, alert and oriented x3. Reports he had a restless night. Having a bit headache earlier. Denies any shortness of breath. Denies any chest pain but does have nonproductive cough. Denies any palpitations. Does report some dizziness. Denies any abdominal pain, diarrhea or any other concerns at the moment. Rest of the review of system is negative. Currently remains on 3 L of nasal cannula. Review of Systems Review of Systems: All systems reviewed & are unremarkable except as noted in HPI & below Physical Exam Physical Exam: General: A&Ox3 HENT: NCAT, MMM, EOMI Eyes: PERRLA Neck: Supple, normal range of motion CVS: normal rate and rhythm Resp: b/l brackles breath sounds Abdomen: Soft, ND/NT, +BS Extremities: No c/c/e Neuro: face symmetric, no focal deficit Skin: warm and dry, no rashes/lesions/errythema MSK: normal ROM, no joint swelling/erythema Results & Data Results & Data ([facility]) Vital Signs (Past 12 Hours) Vital Signs Temp Pulse Pulse Resp BP Pulse Ox 08/22/20 12:27 36.8 C 82 18 101/70 99 08/22/20 08:00 36.9 C 60 18 110/63 93 08/22/20 03:24 68 19 94 08/22/20 03:21 36.8 C 69 18 104/64 99
[2020-08-22] MEDS: ALUMINUM/MAGNESIUM SUSP 30 ML UDC PO PRN (16:24)
[2020-08-23] MEDS: FUROSEMIDE 100 MG in DEXTROSE 5% 90 ML IV SCH ×5 (01:40→21:21)
[2020-08-23 08:06] LABS: Eosinophils # (auto) 0.23 K/uL (0-0.5); Hematocrit (blood only) 27.5 % (42-52); Hemoglobin 8.9 g/dL (14.0-18.0); Immature Granulocytes # (auto) 0.02 K/uL (0.00-0.02); Immature Granulocytes % (auto) 0.3 %; Lymphocytes % (auto) 15.6 %; Mean Corpuscular Hemoglobin 29.8 pg (25-34); Mean Corpuscular Hgb Conc 32.4 g/dL (32-36); Mean Platelet Volume 10.9 fL (7.4-10.4); Monocytes # (auto) 0.53 K/uL (0.11-0.59); Monocytes % (auto) 9.2 %; Neutrophils # (auto) 4.08 K/uL (1.4-6.5); Neutrophils % (auto) 70.9 %; Platelet Count 252 K/uL (130-400); RDW Coefficient of Variation 15.8 % (11.5-14.5); RDW Standard Deviation 51.9 fL (36.4-46.3); Red Blood Count 2.99 M/uL (4.7-6.1); White Blood Count 5.76 K/uL (4.8-10.8)
[2020-08-23] MEDS: CHOLECALCIFEROL 1,000 UNITS 25 MCG TAB PO SCH (08:15)
[2020-08-23] MEDS: MAGNESIUM OXIDE 400 MG TAB PO SCH (08:15)
[2020-08-23] MEDS: ASCORBIC ACID 500 MG TAB PO SCH ×2 (08:15→21:18)
[2020-08-23] MEDS: POTASSIUM CHLORIDE CRTAB 20 MEQ TABCR PO SCH ×3 (08:15→21:18)
[2020-08-23] MEDS: INSULIN GLARGINE SOLOSTAR 100 UNITS/ML 3 ML PEN SC SCH (08:15)
[2020-08-23] MEDS: PANTOprazole 40 MG TAB PO SCH (08:16)
[2020-08-23] MEDS: INSULIN ASPART 100 UNITS/ML 3 ML PEN SC SCH ×4 (08:16→21:19)
[2020-08-23] MEDS: MICONAZOLE NITRATE POWDER 43 GM EXT SCH ×2 (08:17→21:18)
[2020-08-23] MEDS: POLYETHYLENE (MIRALAX) 17 GM PACK PO SCH (08:20)
[2020-08-23] MEDS: DOCUSATE SODIUM 100 MG CAP PO SCH ×2 (08:21→21:21)
[2020-08-23 08:40] LABS: Albumin Level 2.3 gm/dl (3.4-5.0); BUN Creatinine Ratio 30.2 (10-20); Calcium 8.5 mg/dl (8.5-10.1); Creatinine Clr Calc Pharmacy 42.6 ml/min; Est GFR (African American) 40.4 ml/min; Est GFR (Non-African American) 34.9 ml/min; Potassium 3.1 mmol/L (3.5-5.1)
[2020-08-23 08:43] LABS: Albumin Globulin Ratio 0.6 (0.9-2); Bilirubin,Total 0.7 mg/dl (0.2-1); Globulin 3.9 gm/dl (2.5-4.0); Total Protein 6.2 gm/dl (6.4-8.2)
--- NOTE | 2020-08-23 10:19 | Nephrology Progress Note ---
Date of Service August 23, 2020 Assessment & Plan Admission and Anticipated Discharge Date Admission Date: August 16, 2020 Subjective NEPHROLOGY PROGRESS NOTE SUBJECTIVE: The patient appears to be better . on Lasix and dobutamine drip and worked pretty good as his urine output was a lot and he also feels somewhat better and less edematous. OBJECTIVE: HEENT: Mucous membranes moist. NECK: Supple. No jugular venous distention. CHEST: Bilaterally decreased breath sounds. CARDIOVASCULAR: S1, S2 irregular. Soft systolic murmur heard. ABDOMEN: Soft, nontender. EXTREMITIES: Show trace edema. LABORATORY TEST: Creat stable. K is still low. ASSESSMENT AND PLAN: A 74-year-old male with complicated cardiac history and has been labeled essentially as end-stage cardiac disease at this point by cardiology. He was admitted with congestive heart failure. He has known chronic kidney disease at baseline, but in the last few days, it has gotten somewhat worse. Acute renal failure: The acute component is probably related with a cardiorenal situation. However, creatinine has remained fairly stable now for the last 5 days despite diuretics at just over 2. His urine output was quite good, with dobutamine and Lasix drip. Low K and will correct RECOMMENDATIONS: It is reasonable to continue with the Lasix and dobutamine drip. However, I will defer this to cardiology given that he has been labeled as end-stage cardiac disease. It is obvious that his kidneys do work better when he is on combined Lasix and dobutamine drip. Raise k.cl 30 tid. He will need lot less dose after lasix drip stopped though Results & Data ([facility]) Vital Signs (Past 12 Hours) Vital Signs Temp Pulse Resp BP Pulse Ox 08/23/20 08:00 36.6 C 72 18 144/69 H 99 08/23/20 04:16 36.5 C 75 18 151/72 H 98 08/22/20 23:31 36.5 C 69 18 95/47 L 99
--- NOTE | 2020-08-23 13:19 | Hospitalist Progress Note ---
Date of Service August 23, 2020 Assessment & Plan (1) Acute respiratory failure with hypoxemia: Acute hypoxemic respiratory failure secondary to pulmonary edema caused by decompensated CHF with ischemic cardiomyopathy biventricular heart failure. Acute decompensated CHF with severe ischemic cardiomyopathy Presented with volume overload, hypoxemia with's severe pulmonary congestion, elevated proBNP volume overload Currently patient is on 3 L of nasal cannula. Was on BiPAP overnight. Appreciate cardiology and nephrology input. Adequate urine output in the last [address] Matthews catheter in place for accurate ins and outs along with daily weights. Currently remains on Lasix infusion and dobutamine. Most recent transthoracic echo with a EF of 15% on 08/19/2020. Most recent chest x-ray with improvement in pulmonary congestion. Progression of cardiomyopathy/end-stage heart failure overall prognosis remains very poor Patient and his family aware Patient is currently DNR/DNI Continue with supportive care. We will order PT OT today. (2) CKD (chronic kidney disease) stage 4, GFR 15-29 ml/min: Acute renal failure with CKD stage IV, possible secondary to cardiac decompensation Developed oliguric renal failure, leading to progressive volume overload, nephrology is on board. Concern for hepatorenal syndrome caused by passive liver congestion with severe decompensated CHF. Patient had adequate urine output in the last 24 hours. Matthews catheter is in place. Patient has responded to Lasix/dobutamine combination. Creatinine today down to 1.87 from 2.10. (3) CAD (coronary artery disease): History of coronary bypass completed in 2014 Continue with [employer] beta-varsha/Lipitor/Plavix (4) Elevated troponin: Possible type II non-ST elevated VA/demand ischemia -in the setting of cardiogenic shock/severe ischemic cardiomyopathy On admission intermittent chest pain chest discomfort possibly secondary to decompensated CHF No evidence of acute coronary event or plaque rupture, cardiology eval appreciated (5) Hypertension: Elevated LFTs/coagulopathy Amiodarone/ statin discontinued, Liver ultrasound shows liver cirrhosis without acute liver or gallbladder disease. Likely secondary to congestion. LFTs are improving. (6) Hyperlipidemia: Statin discontinued for transaminitis (7) PAF (paroxysmal atrial fibrillation): Amiodarone discontinued, worsening of respiratory status ARDS, trans aminitis (8) H/O mitral valve replacement: - s/p replacement in 2013 (9) H/O aortic valve replacement: - s/p replacement in 2013 (10) History of coronary artery bypass graft x 1: Present with mild elevation troponin, intermittent chest discomfort secondary to decompensated CHF Worsening of cardiac condition as outlined above (11) Pernicious anemia: Hgb of 8.9 today, will continue to monitor. (12) Diabetes mellitus, type 2: Insulin sliding scale, (13) DVT prophylaxis: -INR of 2.1 CODE: DNR/DNI Disposition: Overall very poor prognosis, limited life expectancy, palliative care consulted Admission and Anticipated Discharge Date Admission Date: August 16, 2020 Subjective Doing okay this morning. Was on BiPAP overnight. Currently remains on 3 L of nasal cannula. Reports shortness of breath is improved. Does have minimal nonproductive cough. Does report some headache but rest of the review of system is negative. Have not been out of the bed. Review of Systems Review of Systems: All systems reviewed & are unremarkable except as noted in HPI & below Physical Exam Physical Exam: General: A&Ox3 HENT: NCAT, MMM, EOMI Eyes: PERRLA Neck: Supple, normal range of motion CVS: normal rate and rhythm Resp: b/l decrease breath sounds Abdomen: Soft, ND/NT, +BS Extremities: No c/c/e Neuro: face symmetric, no focal deficit Skin: warm and dry, no rashes/lesions/errythema : Matthews catheter in place with clear urine output Results & Data Results & Data ([facility]) Vital Signs (Past 12 Hours) Vital Signs Temp Pulse Resp BP Pulse Ox 08/23/20 12:00 36.6 C 83 22 142/68 H 94 08/23/20 08:00 36.6 C 72 18 144/69 H 99 08/23/20 04:16 36.5 C 75 18 151/72 H 98
[2020-08-23] MEDS ORDERED: LORazepam 1 MG TAB PO PRN (14:30)
--- NOTE | 2020-08-23 15:49 | Psychiatric Consultation ---
Date of Consultation August 23, 2020 Impression / Recommendations Impression 74 year old male with significant cardiac issues facing end of life care. Plan: -Psych service to offer supportive therapy -Consider consulting publications production supervisor and volunteer service for additional assistance with patient therapy -Duloxetine currently being held. I agree with the hold for the time being, as duloxetine is associated with cardiac conduction delays which would be detrimental in this patient with < 15% ejection fraction. Furthermore, patient not showing any acute symptoms of depression. The decision to restart this medication should be revisited if patient's depressive symptoms return. Inventory Assets Strengths: insight, acceptance Needs: supportive assistance. Risk Factors Assessment Male: Yes : Yes Do You Have Access To A Gun?: No Previous Attempt: No Protective Factors Assessment Sabianism Beliefs: Yes : No Stable Relationships: Yes Good Rapport with Provider: Yes Psych History Chief Complaint "I'm feeling okay today". History of Present Illness Per liason" This liaison met with patient, he was calm, pleasant, maintained appropriate eye contact and was attentive to spontaneous conversation. Denies SI, depression or anxiety on this meeting. Stated I do not know where I will go when they are done giving me medications. He mentioned going to [facility], but doesnt know. He did endorse some concern about not knowing his plan of care. He stated When the doctor came in, he said I was getting better, so I dont know where I will go. He has a niece that is his power of middle school english teacher d/t he is single/never , no children. His brother lives in [place] and also has many health conditions that prevent him from travel. This Liaison asked if he had any anxious thoughts or increased helpless/hopelessness, he denied. He said sometimes he feels like a burden to his neighbors, when they gather his mail and get groceries for him. He is used to driving and doing things for himself. Encouraged patient to call [facility] liaison if any psychiatric needs arise. Noted that his Cymbalta has been held since 08/19. Rounded on patient. Resting in bed, pleasant with good eye contact. He reports that he is feeling a little better today. He is unsure about his placement. He reports that he has talked to several family members on the phone, and they are praying for him. Denies depression, states "It's been hard the last year being isolated, not going out much and his health issues." He does identify his neighbor as a support system, along with niece and other family members. Denies needing anything from our service at this time. Will continue to round to provide support." Patient adamantly denies any suicidal or homicidal ideation. Denies any depression or psychotic symptoms. He acknowledged the above information as accurate. Past Psychiatric History Do You Have Access To A Gun?: No History of Previous Suicide Attempt: No Allergies Allergy/AdvReac Type Severity Reaction Status Date / Time No Known Allergies Allergy Unverified 02/12/20 18:24 Home Medications Medication Instructions Recorded Confirmed Type albuterol sulfate 2 puff INHALATION QID PRN 12/07/19 08/16/20 History ascorbic acid (vitamin C) [Vitamin 500 mg PO BID 12/07/19 08/16/20 History C] clopidogrel 75 mg PO QAM 12/07/19 08/16/20 History docusate sodium 100 mg PO BID 12/07/19 08/16/20 History furosemide 80 mg PO QAM 12/07/19 08/16/20 History nitroglycerin 0.4 mg SUBLINGUAL DIRECTED PRN 12/07/19 08/16/20 History omeprazole 20 mg PO QAM PRN 12/07/19 08/16/20 History atorvastatin 80 mg PO QPM 12/30/19 08/16/20 History cyanocobalamin (vitamin B-12) 1,000 mcg IM MO 12/30/19 08/16/20 History magnesium oxide 400 mg PO DAILY 12/30/19 08/16/20 History metoprolol succinate 100 mg PO DAILY 12/30/19 08/16/20 History isosorbide mononitrate 60 mg PO QAM 30 Days #60 tab 01/06/20 08/16/20 Rx duloxetine 20 mg PO QAM 02/12/20 08/16/20 History cholecalciferol (vitamin D3) 125 mcg PO Q2D 07/14/20 08/16/20 History [Vitamin D3] furosemide 40 mg PO DAILY@1300 07/14/20 08/16/20 History insulin aspart U-100 [Novolog 8 unit SUBCUT AC #15 ml 07/25/20 08/16/20 Rx Flexpen U-100 Insulin] insulin degludec [Tresiba 15 unit SUBCUT QAM #15 ml 07/25/20 08/16/20 Rx FlexTouch U-100] warfarin 1.25 mg PO DAILY #20 tab 07/25/20 08/16/20 Rx amiodarone 200 mg PO DAILY 08/16/20 08/16/20 History Personal History Beliefs That Will Affect Care: None Patient History Medical History (Updated 08/20/20 @ 11:13 by Arya Isaacs DO) Acute respiratory failure with hypoxia CAD (coronary artery disease) 07/2018: coronary artery bypass grafting x1 with reverse saphenous vein from aorta to right coronary artery via endoscopic saphenous vein harvesting; PCI to mid LAD with RIZWAN Chronic HFrEF (heart failure with reduced ejection fraction) Chronic kidney disease CKD (chronic kidney disease) stage 4, GFR 15-29 ml/min Diabetes mellitus, type 2 GERD (gastroesophageal reflux disease) History of ventricular fibrillation Hyperlipidemia Hypertension OBED on CPAP PAF (paroxysmal atrial fibrillation) Pernicious anemia Surgical History H/O aortic valve replacement Status post bioprosthetic AVR in 2004 Aortic valve prosthesis stenosis and mitral regurgitation requiring redo sternotomy jul 21 2013 with redo AVR and subsequent MVR. H/O mitral valve replacement History of appendectomy History of cardiac cath History of colonoscopy History of coronary artery bypass graft x 1 coronary artery bypass grafting x1 with reverse saphenous vein from aorta to right coronary artery via endoscopic saphenous vein harvesting. History of heart artery stent History of heart valve replacement ICD (implantable cardioverter-defibrillator) in place Family History Father Heart disease CO @ age 64 Mother , age 34, stomach ca Cancer Social History Smoking Status: Never smoker Second Hand Exposure: No; Hx Alcohol Use: Yes Hx Substance Use: No Preferred Language: Thai Communication Ability: Effective Cv Rn Required: No Beliefs That Will Affect Care: None marital status: Single Current Living Situation: Alone current occupation: retired Other Information That Helps Us Care for You: No Feels Safe at Home: Yes Safety Concerns: Feels Safe At This Time Assistive Devices: Oxygen - Continuous and Walker Physical Exam Vital Signs (Past 24 Hours): Last Vital Signs Temp 36.6 C 08/23/20 12:00 Pulse 83 08/23/20 12:00 Resp 22 08/23/20 12:00 BP 142/68 H 08/23/20 12:00 Pulse Ox 94 08/23/20 12:00 Results & Data (PSY) Medications Administered Acetaminophen (Acetaminophen 325 Mg Tab) 650 mg PO Q4H PRN PRN Reason: Moderate Pain Stop: 09/15/20 10:36 Last Admin: 08/18/20 16:48 Dose: 650 mg Documented by: [id number] Al Hydrox/Mg Hydrox/Simethicone (Aluminum/Magnesium Susp 30 Ml Udc) 15 ml PO Q4H PRN PRN Reason: Dyspepsia Stop: 09/15/20 07:34 Last Admin: 08/22/20 16:24 Dose: 15 ml Documented by: [id number] Albuterol (Albuterol Hfa 8 Gm Inhaler) 2 puffs INH QID PRN PRN Reason: Shortness Of Breath Or Wheezing Stop: 09/15/20 10:36 Last Admin: 08/19/20 08:35 Dose: 2 puffs Documented by: [id number] Ascorbic Acid (Ascorbic Acid 500 Mg Tab) 500 mg PO BID DYLAN Stop: 09/15/20 10:36 Last Admin: 08/23/20 08:15 Dose: 500 mg Documented by: [id number] Admin: 08/22/20 20:48 Dose: 500 mg Documented by: [id number] Admin: 08/22/20 08:56 Dose: 500 mg Documented by: [id number] Admin: 08/21/20 21:04 Dose: 500 mg Documented by: [id number] Admin: 08/21/20 08:23 Dose: 500 mg Documented by: [id number] Admin: 08/20/20 21:03 Dose: 500 mg Documented by: [id number] Admin: 08/19/20 09:42 Dose: 500 mg Documented by: [id number] Admin: 08/18/20 20:53 Dose: 500 mg Documented by: [id number] Admin: 08/18/20 08:08 Dose: 500 mg Documented by: [id number] Admin: 08/17/20 21:00 Dose: 500 mg Documented by: [id number] Admin: 08/17/20 08:51 Dose: 500 mg Documented by: [id number] Admin: 08/16/20 20:47 Dose: 500 mg Documented by: [id number] Admin: 08/16/20 12:18 Dose: 500 mg Documented by: [id number] Aspirin (Aspirin 81 Mg Ectab) 81 mg PO [facility] Stop: 09/15/20 08:59 Last Admin: 08/19/20 09:42 Dose: 81 mg Documented by: [id number] Admin: 08/18/20 08:08 Dose: 81 mg Documented by: [id number] Admin: 08/17/20 08:51 Dose: 81 mg Documented by: [id number] Admin: 08/16/20 12:19 Dose: Not Given Documented by: [id number] Atorvastatin Calcium (Atorvastatin 40 Mg Tab) 80 mg PO QPM [facility] Stop: 09/15/20 20:59 Last Admin: 08/18/20 20:53 Dose: 80 mg Documented by: [id number] Admin: 08/17/20 21:00 Dose: 80 mg Documented by: [id number] Admin: 08/16/20 20:47 Dose: 80 mg Documented by: [id number] Clopidogrel Bisulfate (Clopidogrel Bisulfate 75 Mg Tab) 75 mg PO [facility] Stop: 09/15/20 10:36 Last Admin: 08/18/20 08:07 Dose: 75 mg Documented by: [id number] Admin: 08/17/20 08:52 Dose: 75 mg Documented by: [id number] Admin: 08/16/20 12:18 Dose: 75 mg Documented by: [id number] Cyanocobalamin (Cyanocobalamin 1000 Mcg/Ml Vial) 1,000 mcg IM Q30D [facility] Stop: 09/19/20 08:59 Last Admin: 08/20/20 08:29 Dose: 1,000 mcg Documented by: [id number] Docusate Sodium (Docusate Sodium 100 Mg Cap) 100 mg PO BID [facility] Stop: 09/15/20 10:36 Last Admin: 08/23/20 08:21 Dose: 100 mg Documented by: [id number] Admin: 08/22/20 20:53 Dose: 100 mg Documented by: [id number] Admin: 08/22/20 10:25 Dose: 100 mg Documented by: [id number] Admin: 08/21/20 21:04 Dose: 100 mg Documented by: [id number] Admin: 08/21/20 08:29 Dose: 100 mg Documented by: [id number] Admin: 08/20/20 21:03 Dose: 100 mg Documented by: [id number] Admin: 08/19/20 09:42 Dose: 100 mg Documented by: [id number] Admin: 08/18/20 20:53 Dose: 100 mg Documented by: [id number] Admin: 08/18/20 08:08 Dose: 100 mg Documented by: [id number] Admin: 08/17/20 21:00 Dose: 100 mg Documented by: [id number] Admin: 08/17/20 08:52 Dose: 100 mg Documented by: [id number] Admin: 08/16/20 20:47 Dose: 100 mg Documented by: [id number] Admin: 08/16/20 12:18 Dose: 100 mg Documented by: [id number] Duloxetine HCl (Duloxetine Hcl 20 Mg Cap) 20 mg PO QAM [facility] Stop: 09/15/20 10:36 Last Admin: 08/19/20 09:42 Dose: 20 mg Documented by: [id number] Admin: 08/18/20 08:08 Dose: 20 mg Documented by: [id number] Admin: 08/17/20 08:52 Dose: 20 mg Documented by: [id number] Admin: 08/16/20 12:19 Dose: 20 mg Documented by: [id number] Furosemide 100 mg/ Dextrose 100 mls @ 20 mls/hr IV .Q5H [facility] Stop: 09/18/20 12:29 Last Admin: 08/23/20 12:00 Dose: 20 mg/hr, 20 mls/hr Documented by: [id number] Infusion: 08/23/20 11:34 Dose: 20 mg/hr, 20 mls/hr Documented by: [id number] Admin: 08/23/20 06:34 Dose: 20 mg/hr, 20 mls/hr Documented by: [id number] Infusion: 08/23/20 06:34 Dose: 20 mg/hr, 20 mls/hr Documented by: [id number] Admin: 08/23/20 01:40 Dose: 20 mg/hr, 20 mls/hr Documented by: [id number] Infusion: 08/23/20 01:40 Dose: 20 mg/hr, 20 mls/hr Documented by: [id number] Admin: 08/22/20 20:41 Dose: 20 mg/hr, 20 mls/hr Documented by: [id number] Infusion: 08/22/20 20:41 Dose: 20 mg/hr, 20 mls/hr Documented by: [id number] Admin: 08/22/20 16:19 Dose: 20 mg/hr, 20 mls/hr Documented by: [id number] Infusion: 08/22/20 16:12 Dose: 20 mg/hr, 20 mls/hr Documented by: [id number] Admin: 08/22/20 11:12 Dose: 20 mg/hr, 20 mls/hr Documented by: [id number] Infusion: 08/22/20 10:59 Dose: 20 mg/hr, 20 mls/hr Documented by: [id number] Admin: 08/22/20 05:59 Dose: 20 mg/hr, 20 mls/hr Documented by: [id number] Infusion: 08/22/20 05:59 Dose: 20 mg/hr, 20 mls/hr Documented by: [id number] Admin: 08/22/20 01:03 Dose: 20 mg/hr, 20 mls/hr Documented by: [id number] Infusion: 08/22/20 00:49 Dose: 20 mg/hr, 20 mls/hr Documented by: [id number] Admin: 08/21/20 19:49 Dose: 20 mg/hr, 20 mls/hr Documented by: [id number] Infusion: 08/21/20 19:44 Dose: 20 mg/hr, 20 mls/hr Documented by: [id number] Admin: 08/21/20 14:44 Dose: 20 mg/hr, 20 mls/hr Documented by: [id number] Infusion: 08/21/20 14:29 Dose: 20 mg/hr, 20 mls/hr Documented by: [id number] Admin: 08/21/20 09:29 Dose: 20 mg/hr, 20 mls/hr Documented by: [id number] Infusion: 08/21/20 09:29 Dose: 20 mg/hr, 20 mls/hr Documented by: [id number] Infusion: 08/21/20 07:01 Dose: 20 mg/hr, 20 mls/hr Documented by: [id number] Admin: 08/21/20 04:29 Dose: 20 mg/hr, 20 mls/hr Documented by: [id number] Infusion: 08/21/20 03:57 Dose: 20 mg/hr, 20 mls/hr Documented by: [id number] Admin: 08/20/20 22:57 Dose: 20 mg/hr, 20 mls/hr Documented by: [id number] Infusion: 08/20/20 22:31 Dose: 20 mg/hr, 20 mls/hr Documented by: [id number] Infusion: 08/20/20 19:04 Dose: 20 mg/hr, 20 mls/hr Documented by: [id number] Admin: 08/20/20 17:31 Dose: 20 mg/hr, 20 mls/hr Documented by: [id number] Infusion: 08/20/20 17:20 Dose: 20 mg/hr, 20 mls/hr Documented by: [id number] Admin: 08/20/20 12:20 Dose: 20 mg/hr, 20 mls/hr Documented by: [id number] Infusion: 08/20/20 12:19 Dose: 20 mg/hr, 20 mls/hr Documented by: [id number] Infusion: 08/20/20 10:40 Dose: 20 mg/hr, 20 mls/hr Documented by: [id number] Admin: 08/20/20 08:26 Dose: 30 mg/hr, 30 mls/hr Documented by: [id number] Infusion: 08/20/20 07:58 Dose: 30 mg/hr, 30 mls/hr Documented by: [id number] Admin: 08/20/20 04:38 Dose: 30 mg/hr, 30 mls/hr Documented by: [id number] Infusion: 08/20/20 04:38 Dose: 30 mg/hr, 30 mls/hr Documented by: [id number] Admin: 08/20/20 01:26 Dose: 30 mg/hr, 30 mls/hr Documented by: [id number] Infusion: 08/20/20 01:26 Dose: 30 mg/hr, 30 mls/hr Documented by: [id number] Admin: 08/19/20 22:36 Dose: 30 mg/hr, 30 mls/hr Documented by: [id number] Infusion: 08/19/20 22:35 Dose: 30 mg/hr, 30 mls/hr Documented by: [id number] Infusion: 08/19/20 21:15 Dose: 30 mg/hr, 30 mls/hr Documented by: [id number] Admin: 08/19/20 17:04 Dose: 20 mg/hr, 20 mls/hr Documented by: [id number] Infusion: 08/19/20 17:04 Dose: 20 mg/hr, 20 mls/hr Documented by: [id number] Admin: 08/19/20 13:06 Dose: 20 mg/hr, 20 mls/hr Documented by: [id number] Dobutamine HCl 500 mg/ (Dextrose) 250 mls @ 8.438 mls/hr IV .Q24H [facility]; Protocol Stop: 09/20/20 22:44 Last Admin: 08/22/20 10:27 Dose: 2.5 mcg/kg/min, 8.4 mls/hr Documented by: [id number] Cosigned by: [id number] Insulin Aspart (Insulin Aspart 100 Units/Ml 3 Ml Pen) 0 units SC ACHS [facility] Stop: 09/19/20 11:29 Last Admin: 08/23/20 11:59 Dose: 14 units Documented by: [id number] Cosigned by: [id number] Admin: 08/23/20 08:16 Dose: 9 units Documented by: [id number] Cosigned by: [id number] Admin: 08/22/20 20:53 Dose: Not Given Documented by: [id number] Admin: 08/22/20 17:28 Dose: 13 units Documented by: [id number] Cosigned by: [id number] Admin: 08/22/20 12:48 Dose: 7 units Documented by: [id number] Cosigned by: [id number] Admin: 08/22/20 08:55 Dose: 12 units Documented by: [id number] Cosigned by: [id number] Admin: 08/21/20 20:45 Dose: Not Given Documented by: [id number] Admin: 08/21/20 17:39 Dose: 10 units Documented by: [id number] Cosigned by: [id number] Admin: 08/21/20 12:00 Dose: 16 units Documented by: [id number] Cosigned by: [id number] Admin: 08/21/20 08:26 Dose: 5 units Documented by: [id number] Cosigned by: [id number] Admin: 08/20/20 21:03 Dose: Not Given Documented by: [id number] Cosigned by: [id number] Admin: 08/20/20 16:53 Dose: 7 units Documented by: [id number] Cosigned by: [id number] Admin: 08/20/20 12:13 Dose: 6 units Documented by: [id number] Cosigned by: [id number] Insulin Glargine (Insulin Glargine Solostar 100 Units/Ml 3 Ml Pen) 15 units SC DAILY [facility] Stop: 09/15/20 11:59 Last Admin: 08/23/20 08:15 Dose: 15 units Documented by: [id number] Cosigned by: [id number] Admin: 08/22/20 08:57 Dose: 15 units Documented by: [id number] Cosigned by: [id number] Admin: 08/21/20 08:25 Dose: 15 units Documented by: [id number] Cosigned by: [id number] Admin: 08/20/20 08:30 Dose: 15 units Documented by: [id number] Cosigned by: [id number] Admin: 08/19/20 09:43 Dose: 15 units Documented by: [id number] Cosigned by: [id number] Admin: 08/18/20 08:09 Dose: 15 units Documented by: [id number] Cosigned by: [id number] Admin: 08/17/20 08:49 Dose: 15 units Documented by: [id number] Cosigned by: [id number] Admin: 08/16/20 12:20 Dose: 15 units Documented by: [id number] Cosigned by: [id number] Isosorbide Mononitrate (Isosorbide Fallon Extended Rel 60 Mg Tabcr) 60 mg PO QAM [facility] Stop: 09/15/20 10:36 Last Admin: 08/18/20 08:07 Dose: 60 mg Documented by: [id number] Admin: 08/17/20 08:52 Dose: 60 mg Documented by: [id number] Admin: 08/16/20 12:18 Dose: 60 mg Documented by: [id number] Magnesium Oxide (Magnesium Oxide 400 Mg Tab) 400 mg PO DAILY [facility] Stop: 09/15/20 10:36 Last Admin: 08/23/20 08:15 Dose: 400 mg Documented by: [id number] Admin: 08/22/20 10:25 Dose: 400 mg Documented by: [id number] Admin: 08/21/20 08:29 Dose: 400 mg Documented by: [id number] Admin: 08/19/20 09:43 Dose: 400 mg Documented by: [id number] Admin: 08/18/20 08:08 Dose: 400 mg Documented by: [id number] Admin: 08/17/20 08:52 Dose: 400 mg Documented by: [id number] Admin: 08/16/20 12:18 Dose: 400 mg Documented by: [id number] Miconazole Nitrate (Miconazole Nitrate Powder 43 Gm) 1 appln EXT BID [facility] Stop: 09/15/20 12:53 Last Admin: 08/23/20 08:17 Dose: 1 appln Documented by: [id number] Admin: 08/22/20 20:49 Dose: 1 appln Documented by: [id number] Admin: 08/22/20 08:57 Dose: 1 appln Documented by: [id number] Admin: 08/21/20 21:04 Dose: 1 appln Documented by: [id number] Admin: 08/21/20 08:24 Dose: 1 appln Documented by: [id number] Admin: 08/20/20 21:04 Dose: 1 appln Documented by: [id number] Admin: 08/20/20 08:30 Dose: 1 appln Documented by: [id number] Admin: 08/19/20 20:57 Dose: 1 appln Documented by: [id number] Admin: 08/19/20 10:13 Dose: 1 appln Documented by: [id number] Admin: 08/18/20 20:54 Dose: 1 appln Documented by: [id number] Admin: 08/18/20 08:09 Dose: 1 appln Documented by: [id number] Admin: 08/17/20 21:00 Dose: 1 appln Documented by: [id number] Admin: 08/17/20 08:53 Dose: 1 appln Documented by: [id number] Admin: 08/16/20 20:48 Dose: 1 appln Documented by: [id number] Pantoprazole Sodium (Pantoprazole 40 Mg Tab) 40 mg PO QAM [facility] Stop: 09/20/20 08:59 Last Admin: 08/23/20 08:16 Dose: 40 mg Documented by: [id number] Admin: 08/22/20 08:56 Dose: 40 mg Documented by: [id number] Admin: 08/21/20 08:24 Dose: 40 mg Documented by: [id number] Polyethylene Glycol (Polyethylene (Miralax) 17 Gm Pack) 17 gm PO DAILY [facility] Stop: 09/18/20 08:59 Last Admin: 08/23/20 08:20 Dose: 17 gm Documented by: [id number] Admin: 08/22/20 10:25 Dose: 17 gm Documented by: [id number] Admin: 08/21/20 08:29 Dose: 17 gm Documented by: [id number] Admin: 08/19/20 10:14 Dose: 17 gm Documented by: [id number] Vitamin D (Cholecalciferol 1,000 Units 25 Mcg Tab) 5,000 units PO Q2D [facility] Stop: 09/16/20 08:59 Last Admin: 08/23/20 08:15 Dose: 5,000 units Documented by: [id number] Admin: 08/21/20 08:23 Dose: 5,000 units Documented by: [id number] Admin: 08/19/20 09:42 Dose: 5,000 units Documented by: [id number] Admin: 08/17/20 08:51 Dose: 5,000 units Documented by: [id number] Warfarin Sodium (Warfarin Sod 1.25 Mg Tab) 1.25 mg PO DAILY@1600 [facility] Stop: 09/15/20 15:59 Last Admin: 08/17/20 17:17 Dose: 1.25 mg Documented by: [id number] Admin: 08/16/20 17:18 Dose: 1.25 mg Documented by: [id number] Coding Level of Care Code 42721 [facility] Intl Hosp Care Lvl 2
--- NOTE | 2020-08-23 16:14 | Cardiology Progress Note ---
Date of Service August 23, 2020 Assessment & Plan (1) Chronic HFrEF (heart failure with reduced ejection fraction): Patient with acute on chronic systolic heart failure, due to chronic ischemic cardiomyopathy. Echocardiogram performed yesterday 08/19/2020 revealed severe global left ventricular hypokinesis with ejection fraction in the range of 15-20%, and severe pulmonary hypertension, estimated pulmonary artery systolic pressure 69 mmHg -Previous echocardiogram 07/15/2020 with ejection fraction of 25-30% with inferior posterior hypokinesis to akinesis, apex akinetic. Moderate hypokinesis otherwise. -The patient has a longstanding history of complex cardiac disease. He initially underwent surgical aortic valve replacement in 2004. In 2013 he initially presented to [place] , then transfered to [facility] with cardiogenic shock, was found to have severe prosthetic aortic valve stenosis as well as severe mitral regurgitation with a flail mitral valve leaflet and a high-grade occlusion of the right coronary artery. He underwent CABG times one of the RCA, redo surgical bioprosthetic aortic valve replacement, and bioprosthetic mitral valve replacement at that time in 2013, having established with the undersigned shortly thereafter. -He underwent implantation of a biventricular pacemaker ICD in 2014. -In November,, he underwent cardiac catheterization at [facility] for non- STEMI/V. fib arrest with successful defibrillation by his AICD, severe [place] vessel RCA disease known to be present, with patent graft, and nonobstructive disease elsewhere. Medical management recommended. 12/30/2019, presented with recurrent non-STEMI, troponin peaked at greater than 200 ng/ml overnight. And severe left ventricular systolic function noted in the interim with multiple recurrent hospital stays. Clinically he is continue to improve with dobutamine and Lasix drips. Another 2 L negative overnight. And renal function continues to improve. At this point I would continue the current dobutamine and Lasix drips as long as his fluid balance is remain negative and renal function does not become impaired. Continue to follow on monitor. If he has refractory VT, magnet can be utilized to prevent VT, VF storm. Anticipate need for [employer] training representative's assistance in deactivating his VT / VF therapies tomorrow. Admission and Anticipated Discharge Date Admission Date: August 16, 2020 Subjective Patient seen and examined, chart reviewed. Currently states his breathing is feeling better. His main complaint is that of fatigue and not moving out of bed but denies any complaints of chest pain, palpitations, lightheadedness, dizziness or syncope. Telemetry reviewed: Sinus rhythm with ventricular pacing Review of Systems Review of Systems: All systems reviewed & are unremarkable except as noted in HPI & below Physical Exam Physical Exam: General: Awake, alert and oriented x 3. Conversational dyspnea while on BiPAP. HEENT: Normocephalic, atraumatic. Pupils equal, round and reactive to light and accommodation. Extraocular muscles are intact. Anicteric sclera. Moist mucous membranes. Neck: No JVD. No bruit. Cardiovascular: Regular. Positive S-4. Normal S-1 and S-2. No S-3. 3/6 mid to late systolic ejection murmur, greatest at the right sternal border, second intercostal space with radiation to the bilateral carotids. No rubs. Pulmonary: Poor air movement diffusely with scattered rhonchi. Dry bibasilar crackles present as well. Abdomen: Bowel sounds x 4, soft. No rebound, guarding or tenderness. No organomegaly. Extremities: No clubbing, cyanosis or edema. +2 pedal pulses bilaterally. Skin: Warm and dry. Results & Data ([facility]) Vital Signs (Past 12 Hours) Vital Signs Temp Pulse Resp BP Pulse Ox 08/23/20 12:00 36.6 C 83 22 142/68 H 94 08/23/20 08:00 36.6 C 72 18 144/69 H 99 08/23/20 04:16 36.5 C 75 18 151/72 H 98
[2020-08-24] MEDS ORDERED: CALCIUM CARBONATE 500 MG CHEWABLE TAB PO STA (00:38)
[2020-08-24] MEDS: ALUMINUM/MAGNESIUM SUSP 30 ML UDC PO PRN (00:44)
[2020-08-24] MEDS: FUROSEMIDE 100 MG in DEXTROSE 5% 90 ML IV SCH ×2 (01:28→06:19)
--- NOTE | 2020-08-24 07:49 | Cardiology Progress Note ---
Date of Service August 24, 2020 Assessment & Plan (1) Chronic HFrEF (heart failure with reduced ejection fraction): Patient with acute on chronic systolic heart failure, due to chronic ischemic cardiomyopathy. Echocardiogram performed yesterday 08/19/2020 revealed severe global left ventricular hypokinesis with ejection fraction in the range of 15-20%, and severe pulmonary hypertension, estimated pulmonary artery systolic pressure 69 mmHg -Previous echocardiogram 07/15/2020 with ejection fraction of 25-30% with inferior posterior hypokinesis to akinesis, apex akinetic. Moderate hypokinesis otherwise. -The patient has a longstanding history of complex cardiac disease. He initially underwent surgical aortic valve replacement in 2004. 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 He underwent CABG times one of the RCA, redo surgical bioprosthetic aortic valve replacement, and bioprosthetic mitral valve replacement at that time in 2013, having established with the undersigned shortly thereafter. -He underwent implantation of a biventricular pacemaker ICD in 2014. -In November,, he underwent cardiac catheterization at [facility] for non-STEMI/ V. fib arrest with successful defibrillation by his AICD, severe [place] vessel RCA disease known to be present, with patent graft, and nonobstructive disease elsewhere. Medical management recommended. 12/30/2019, presented with recurrent non-STEMI, troponin peaked at greater than 200 ng/ml overnight. And severe left ventricular systolic function noted in the interim with multiple recurrent hospital stays. Clinically he is continuing to improve with dobutamine and Lasix drips. Another 1.8 L negative overnight. Renal function stable. Patient appears close to euvolemic state. No ACEI/ARB/Entresto/Aldactone, RE: Hyperkalemia with past use of both lisinopril and spironolactone, plus his degree of renal impairment. Chronic iron deficiency anemia PLAN: 1. At this time will attempt transitioning patient from Lasix gtt to Torsemide 40 mg TID with the first dose starting after discontinuation of Lasix gtt- continue to follow BMP and supplement when clinically appropriate. 2. Continue Dobutamine gtt today, will reassess tomorrow about possible discontinuation. 3. Continue to follow on telemetry. 4. Would recommend PT/OT to work with patient to regain strength and movement. Admission and Anticipated Discharge Date Admission Date: August 16, 2020 Supervising Physician Co-Signing Physician Notes I have seen and evaluated the patient. I have reviewed the medical record and discussed the case with the nurse practitioner. The patient is currently on a dobutamine and Lasix drip. My exam today suggest that he is becoming euvolemic. I think we can stop the Lasix drip and start him on torsemide as outlined. I would continue the dobutamine infusion. Patient is complaining of some constipation which nursing is working on. Subjective Patient seen and examined, chart reviewed. States breathing is back to baseline and can lay relatively flat in bed. His main complaint is that of fatigue and weakness from not moving out of bed in over a week. States that prior to this admission he was up and moving without much difficulty. No chest pain, shortness of breath, palpitations, dizziness, syncope or near syncope. No orthopnea, PND, or increased lower extremity edema. Telemetry reviewed: Sinus rhythm with ventricular pacing Currently maintained on IV lasix 20 ml/hr. Weight decreases have tapered off: today 111kg, previously- 111.2, 113.4. He is negative about 1.8L. blood pressure currently stable. 113/66 with a pulse of 85. Review of Systems Review of Systems: All systems reviewed & are unremarkable except as noted in HPI & below Physical Exam Physical Exam: General: No acute distress. A+Ox3. HEENT: Normocephalic. Atraumatic. PERRL. EOMI. Conjunctiva and sclera clear. NECK: No carotid bruits. No JVD. Carotid upstrokes are brisk. Heart: RRR. S1 and S2 noted, soft systolic murmur. No rubs, gallops. PMI non displaced. Lungs: Clear/diminished to auscultation. No wheezes, rhonchi, rales. Abdomen: Normal bowel sounds. Soft. Nontender. No masses or organomegaly. No abdominal bruits. Extremities: No edema. No clubbing or cyanosis. Pulses: radial=2/4, posterior tibial=2/4, dorsalis pedis = 2/4. NEURO: No focal deficits. PSYCH: Normal. Results & Data ([facility]) Vital Signs (Past 12 Hours) Vital Signs Temp Pulse Pulse Resp BP Pulse Ox 08/24/20 04:23 36.4 C L 79 19 115/70 100 08/23/20 23:45 36.5 C 81 20 131/72 99 08/23/20 22:40 80 21 97
[2020-08-24] MEDS: ASCORBIC ACID 500 MG TAB PO SCH ×2 (08:12→20:42)
[2020-08-24] MEDS: POTASSIUM CHLORIDE CRTAB 20 MEQ TABCR PO SCH ×3 (08:12→20:42)
[2020-08-24] MEDS: MICONAZOLE NITRATE POWDER 43 GM EXT SCH ×2 (08:13→20:42)
[2020-08-24] MEDS: MAGNESIUM OXIDE 400 MG TAB PO SCH (08:13)
[2020-08-24] MEDS: INSULIN GLARGINE SOLOSTAR 100 UNITS/ML 3 ML PEN SC SCH (08:13)
[2020-08-24] MEDS: PANTOprazole 40 MG TAB PO SCH (08:13)
[2020-08-24] MEDS: INSULIN ASPART 100 UNITS/ML 3 ML PEN SC SCH ×4 (08:13→21:00)
[2020-08-24] MEDS: DULoxetine HCL 20 MG CAP PO SCH (08:34)
[2020-08-24] MEDS: POLYETHYLENE (MIRALAX) 17 GM PACK PO SCH (08:34)
[2020-08-24] MEDS: DOCUSATE SODIUM 100 MG CAP PO SCH ×2 (08:34→20:45)
--- NOTE | 2020-08-24 12:01 | Hospitalist Progress Note ---
Date of Service August 24, 2020 Assessment & Plan (1) Acute on chronic systolic heart failure: Cardiology managing diuretics and are transitioning him to PO torsemide. Continue following daily weights, strict I/Os and clinical progress. Notably not on GDMT including no ACEI/ARB/Entresto/aldactone 2/2 hyperkalemia in the past in setting of renal insufficiency. He is on Imdur and we may consider adding hydralazine as blood pressure permits. Toprol has not been restarted yet. (2) Acute respiratory failure with hypoxemia: Thought secondary to underlying CHF exacerbatinon, improved with diuresis and dobutamine. (3) Cardiorenal syndrome with renal failure: Nephro following, improvement in renal function overall with current treatment. Continues to have good urine output. (4) Acute kidney injury: as above. (5) CKD (chronic kidney disease) stage 4, GFR 15-29 ml/min: (6) PAF (paroxysmal atrial fibrillation): coumadin on hold-rate is <100. Will discuss proper time to restart anticoagulation with cardiology (7) Transaminitis: Improved, likely related to passive congestion from heart failure exacerbation. (8) Valvular heart disease: Noted complex cardiac history with prosthetic aortic valve and severe MR. (9) OBED (obstructive sleep apnea): (10) Diabetes mellitus, type 2: Hold home insulin and utilize glargine and Novolog with carb coverage and sliding scale as needed. Currently euglycemic and at goal. Recent A1C in June 2020 was at goal 6.8. (11) DVT prophylaxis: SCDs/warfarin on hold DNR/DNI Dipso-uncertain at this time. Patient has poor prognosis and is terminally ill. May consider a palliative care consultation on Thursday to further discuss overall goals of care. [facility] Hospital[facility] Admission and Anticipated Discharge Date Admission Date: August 16, 2020 Subjective 74 yo M presented with generalized weakness, acute on chronic dyspnea and decreased appetite. He was recently admitted to [facility] with acute CHF and pneumonia followed by a stint at rehab and then came from home. He has a complex cardiac history and since admission has been diuresed with furosemide. On 08/19, he was put into the ICU for acute respiratory failure and was started on a lasix infusion and a dobutamine infusion. He developed acute kidney injury on chronic kidney disease, thought secondary to cardiorenal syndrome. He continued to decline with signs of liver failure likely related to passive congestion. He remains on Lasix and dobutamine drips. His biggest issue today is constipation. He otherwise denies any SOB or pain. He is apathetic to food. Review of Systems Review of Systems: All systems reviewed & are unremarkable except as noted in Subjective Physical Exam Physical Exam: CONSTITUTIONAL: WNWD, vitals as above, generally well- appearing EYES: normal conjunctivae, no scleral icterus ENT: external ear and nose normal, MMM RESPIRATORY: clear to auscultation bilaterally, no crackles, rales or wheezes, normal respiratory effort CARDIOVASCULAR: regular rate and rhythm, S1 and 2 heard without murmurs, gallops or rubs, no JVD, no peripheral edema GASTROINTESTINAL: soft, nontender, nondistended. MUSCULOSKELETAL: strength 5/5 throughout, head is normocephalic and atraumatic SKIN: warm and dry NEUROLOGIC: CN 2-12 grossly intact, no sensory deficit, normal cognition, normal speech, no tremor, no gross focal deficits. PSYCHIATRIC: alert cooperative and oriented to person, place and time. Results & Data Results & Data ([facility]) Vital Signs (Past 12 Hours) Vital Signs Temp Pulse Pulse Resp BP Pulse Ox 08/24/20 10:17 80 08/24/20 08:19 36.4 C L 85 19 113/66 99 08/24/20 04:23 36.4 C L 79 19 115/70 100 Medications Administered Current Inpatient Medications Acetaminophen (Acetaminophen 325 Mg Tab) 650 mg PO Q4H PRN PRN Reason: Moderate Pain Stop: 09/15/20 10:36 Last Admin: 08/18/20 16:48 Dose: 650 mg Documented by: Al Hydrox/Mg Hydrox/Simethicone (Aluminum/Magnesium Susp 30 Ml Udc) 15 ml PO Q4H PRN PRN Reason: Dyspepsia Stop: 09/15/20 07:34 Last Admin: 08/24/20 00:44 Dose: 15 ml Documented by: Albuterol (Albuterol Hfa 8 Gm Inhaler) 2 puffs INH QID PRN PRN Reason: Shortness Of Breath Or Wheezing Stop: 09/15/20 10:36 Last Admin: 08/19/20 08:35 Dose: 2 puffs Documented by: Ascorbic Acid (Ascorbic Acid 500 Mg Tab) 500 mg PO BID [facility] Stop: 09/15/20 10:36 Last Admin: 08/24/20 08:12 Dose: 500 mg Documented by: Aspirin (Aspirin 81 Mg Ectab) 81 mg PO QAM [facility] Stop: 09/15/20 08:59 Last Admin: 08/19/20 09:42 Dose: 81 mg Documented by: Atorvastatin Calcium (Atorvastatin 40 Mg Tab) 80 mg PO QPM [facility] Stop: 09/15/20 20:59 Last Admin: 08/18/20 20:53 Dose: 80 mg Documented by: Bisacodyl (Bisacodyl 5 Mg Tabec) 10 mg PO DAILY PRN PRN Reason: Constipation Stop: 09/17/20 13:42 Last Admin: 08/23/20 16:45 Dose: 10 mg Documented by: Clopidogrel Bisulfate (Clopidogrel Bisulfate 75 Mg Tab) 75 mg PO QAM [facility] Stop: 09/15/20 10:36 Last Admin: 08/18/20 08:07 Dose: 75 mg Documented by: Cyanocobalamin (Cyanocobalamin 1000 Mcg/Ml Vial) 1,000 mcg IM Q30D [facility] Stop: 09/19/20 08:59 Last Admin: 08/20/20 08:29 Dose: 1,000 mcg Documented by: Dextrose (Dextrose 50% 50 Ml Syringe) 25 - 50 ml IV UD PRN; Protocol PRN Reason: Hypoglycemia Protocol Stop: 09/15/20 10:36 Docusate Sodium (Docusate Sodium 100 Mg Cap) 100 mg PO BID [facility] Stop: 09/15/20 10:36 Last Admin: 08/24/20 08:34 Dose: 100 mg Documented by: Duloxetine HCl (Duloxetine Hcl 20 Mg Cap) [facility] [place] Stop: 09/15/20 10:36 Last Admin: 08/24/20 08:34 Dose: Not Given Documented by: Glucagon (Glucagon For Inj 1 Mg Vial) 1 mg SQ UD PRN; Protocol PRN Reason: Hypoglycemia Protocol Stop: 09/15/20 10:36 Glucose (Glucose 10 Tabs/Tube) 4 - 8 tabs PO UD PRN; Protocol PRN Reason: Hypoglycemia Protocol Stop: 09/15/20 10:36 Glucose (Glucose 40% Gel 15 Gm Tube) 15 - 30 gm PO UD PRN; Protocol PRN Reason: Hypoglycemia Protocol Stop: 09/15/20 10:36 Dobutamine HCl 500 mg/ (Dextrose) 250 mls @ 8.438 mls/hr IV .Q24H [facility]; Protocol Stop: 09/20/20 22:44 Last Admin: 08/23/20 16:45 Dose: 2.5 mcg/kg/min, 8.4 mls/hr Documented by: Insulin Aspart (Insulin Aspart 100 Units/Ml 3 Ml Pen) 0 units SC ACHS [facility] Stop: 09/19/20 11:29 Last Admin: 08/24/20 08:13 Dose: 10 units Documented by: Insulin Glargine (Insulin Glargine Solostar 100 Units/Ml 3 Ml Pen) 15 units SC DAILY [facility] Stop: 09/15/20 11:59 Last Admin: 08/24/20 08:13 Dose: 15 units Documented by: Isosorbide Mononitrate (Isosorbide [place] Extended Rel 60 Mg Tabcr) 60 mg PO QAM [facility] Stop: 09/15/20 10:36 Last Admin: 08/18/20 08:07 Dose: 60 mg Documented by: Magnesium Hydroxide (Magnesium Hydroxide Susp 30 Ml Udc) 30 ml PO Q12H PRN PRN Reason: Constipation Stop: 09/15/20 07:34 Magnesium Oxide (Magnesium Oxide 400 Mg Tab) 400 mg PO DAILY [facility] Stop: 09/15/20 10:36 Last Admin: 08/24/20 08:13 Dose: 400 mg Documented by: Miconazole Nitrate (Miconazole Nitrate Powder 43 Gm) 1 appln EXT BID [facility] Stop: 09/15/20 12:53 Last Admin: 08/24/20 08:13 Dose: 1 appln Documented by: Miscellaneous (Carbohydrates For Hypoglycemia ) 15 - 30 gm PO UD PRN PRN Reason: Hypoglycemia Protocol Stop: 09/15/20 10:36 Nitroglycerin (Nitroglycerin Sl 0.4 Mg/Tab Tab) 0.4 mg SL UD PRN PRN Reason: Chest Pain Stop: 09/15/20 10:36 Pantoprazole Sodium (Pantoprazole 40 Mg Tab) 40 mg PO QAM [facility] Stop: 09/20/20 08:59 Last Admin: 08/24/20 08:13 Dose: 40 mg Documented by: Polyethylene Glycol (Polyethylene (Miralax) 17 Gm Pack) 17 gm PO DAILY [facility] Stop: 09/18/20 08:59 Last Admin: 08/24/20 08:34 Dose: 17 gm Documented by: Potassium Chloride (Potassium Chloride Crtab 20 Meq Tabcr) 20 meq PO TID [facility] Stop: 09/22/20 13:59 Last Admin: 08/24/20 08:12 Dose: 20 meq Documented by: Torsemide (Torsemide 20 Mg Tab) 40 mg PO TID [facility] Stop: 09/23/20 11:29 Vitamin D (Cholecalciferol 1,000 Units 25 Mcg Tab) 5,000 units PO Q2D [facility] Stop: 09/16/20 08:59 Last Admin: 08/23/20 08:15 Dose: 5,000 units Documented by: Warfarin Sodium (Warfarin Sod 1.25 Mg Tab) 1.25 mg PO DAILY@1600 [facility] Stop: 09/15/20 15:59 Last Admin: 08/17/20 17:17 Dose: 1.25 mg Documented by:
[2020-08-24] MEDS: TORSEMIDE 20 MG TAB PO SCH ×3 (12:11→23:51)
--- NOTE | 2020-08-24 13:47 | Nephrology Progress Note ---
Date of Service August 24, 2020 Assessment & Plan Admission and Anticipated Discharge Date Admission Date: August 16, 2020 Subjective NEPHROLOGY PROGRESS NOTE SUBJECTIVE: The patient appears to be better . On Lasix and dobutamine drip and worked pretty good as his urine output was a lot and he also feels somewhat better and less edematous. OBJECTIVE: HEENT: Mucous membranes moist. NECK: Supple. No jugular venous distention. CHEST: Bilaterally decreased breath sounds. CARDIOVASCULAR: S1, S2 irregular. Soft systolic murmur heard. ABDOMEN: Soft, nontender. EXTREMITIES: Show trace edema. LABORATORY TEST: No labs this AM ASSESSMENT AND PLAN: A 74-year-old male with complicated cardiac history and has been labeled essentially as end-stage cardiac disease at this point by cardiology. He was admitted with congestive heart failure. He has known chronic kidney disease at baseline, but in the last few days, it has gotten somewhat worse. Acute renal failure: The acute component is probably related with a cardiorenal situation. However, creatinine has remained fairly stable now for the last 5 days despite diuretics at just over 2. His urine output was quite good, with dobutamine and Lasix drip. Low K and will correct RECOMMENDATIONS: 1. Agree with cards about changing to oral diuretics. 2 Need BMP now and daily to asess. 3 It is obvious that his kidneys do work better when he is on combined Lasix and dobutamine drip but cannot conitnue this forever. 4 Conitnue k.cl 30 tid pending labs. He will need less dose after lasix drip stopped though Results & Data ([facility]) Vital Signs (Past 12 Hours) Vital Signs Temp Pulse Pulse Resp BP Pulse Ox 08/24/20 12:18 36.6 C 80 20 117/71 99 08/24/20 10:17 80 08/24/20 08:19 36.4 C L 85 19 113/66 99 08/24/20 04:23 36.4 C L 79 19 115/70 100
[2020-08-24] MEDS ORDERED: GLYCERIN ADULT 12 SUPP/BOX SUPP PR ONE (17:54)
[2020-08-25 07:48] LABS: BUN Creatinine Ratio 29.8 (10-20); Calcium 8.9 mg/dl (8.5-10.1); Creatinine Clr Calc Pharmacy 45.9 ml/min; Est GFR (Non-African American) 38.9 ml/min; Potassium 3.6 mmol/L (3.5-5.1)
[2020-08-25] MEDS: ASCORBIC ACID 500 MG TAB PO SCH ×2 (08:44→20:47)
[2020-08-25] MEDS: TORSEMIDE 20 MG TAB PO SCH ×3 (08:44→20:47)
[2020-08-25] MEDS: POTASSIUM CHLORIDE CRTAB 20 MEQ TABCR PO SCH ×3 (08:44→20:47)
[2020-08-25] MEDS: PANTOprazole 40 MG TAB PO SCH (08:45)
[2020-08-25] MEDS: CHOLECALCIFEROL 1,000 UNITS 25 MCG TAB PO SCH (08:45)
[2020-08-25] MEDS: DULoxetine HCL 20 MG CAP PO SCH (08:45)
[2020-08-25] MEDS: INSULIN GLARGINE SOLOSTAR 100 UNITS/ML 3 ML PEN SC SCH (08:45)
[2020-08-25] MEDS: INSULIN ASPART 100 UNITS/ML 3 ML PEN SC SCH ×4 (08:45→21:31)
[2020-08-25] MEDS: MAGNESIUM OXIDE 400 MG TAB PO SCH (08:45)
[2020-08-25] MEDS: MICONAZOLE NITRATE POWDER 43 GM EXT SCH ×2 (08:49→20:47)
[2020-08-25] MEDS: POLYETHYLENE (MIRALAX) 17 GM PACK PO SCH (08:58)
[2020-08-25] MEDS: DOCUSATE SODIUM 100 MG CAP PO SCH ×2 (08:58→20:47)
--- NOTE | 2020-08-25 10:05 | Nephrology Progress Note ---
Date of Service August 25, 2020 Assessment & Plan (1) Acute kidney injury: Patient with acute kidney injury on CKD. Etiology likely cardiorenal syndrome. Patient is diuresing well and was net -1 L. Creatinine downtrending to 1.7 from 1.87 yesterday. Electrolytes are stable. We will continue to monitor renal function with daily BMP. Monitor input output. Being changed to torsemide today (2) Acute on chronic systolic heart failure: Patient with acute on chronic systolic CHF. He has diuresed well on Lasix drip on dobutamine drip. Patient being changed to Demadex today. We will continue to monitor input output and daily standing weight Admission and Anticipated Discharge Date Admission Date: August 16, 2020 Subjective Seen in follow-up for acute kidney injury on CKD and CHF. He feels better today. He denies shortness of breath. He is diuresing well was net -1 L. Creatinine downtrending to 1.7. Review of Systems Review of Systems: All systems reviewed & are unremarkable except as noted in HPI & below Physical Exam Physical Exam: General exam: Appears comfortable, no acute distress HEENT: Pupils are equal and reactive to light Neck: No JVD, neck is supple trachea is midline Respiratory system: Clear breath sounds bilaterally. Gastrointestinal: Abdomen is soft, non distended, non tender, bowel sounds are present CVS: Regular rate and rhythm. No murmurs, rubs or gallops Musculoskeletal: No joint or muscle tenderness Extremities: Non tender, no edema, peripheral pulses are present Neuro: Oriented, no tremors, no focal neurological deficits Skin: No rashes Results & Data ([facility]) Vital Signs (Past 12 Hours) Vital Signs Temp Pulse Resp BP Pulse Ox 08/25/20 08:19 36.3 C L 89 19 115/68 99 08/25/20 04:03 36.3 C L 68 18 134/70 93 08/25/20 03:20 36.4 C L 86 18 117/74 99 08/24/20 23:45 19 08/24/20 22:56 36.9 C 89 20 128/74 99 Laboratory Results 08/25/20 06:32
--- NOTE | 2020-08-25 11:02 | Cardiology Progress Note ---
Date of Service August 25, 2020 Assessment & Plan (1) Valvular heart disease: (2) Acute on chronic systolic heart failure: (3) Cardiorenal syndrome with renal failure: (4) Acute and chronic respiratory failure with hypoxia: The patient had his IV diuretics switched to oral yesterday and he appears to be continuing to improve. I will discontinue his dobutamine infusion today. If nephrology rounds on him today I would be interested in their thoughts on starting the patient on an ASIA inhibitor or Entresto. Admission and Anticipated Discharge Date Admission Date: August 16, 2020 Subjective Patient feels well and has no new cardiac complaints today. Review of Systems Review of Systems: All systems reviewed & are unremarkable except as noted in Subjective Physical Exam Physical Exam: General: no acute distress and stated age Head: normocephalic, no masses, lesions, tenderness or abnormalities Eyes: conjunctiva are pink and non-injected, sclera clear Neck: supple, no adenopathy, no bruits, normal jugular venous pulse, no hepatojugular reflux Chest: normal shape and normal respiratory effort Lungs: clear to auscultation and percussion Cardiac Exam: - regular rate & rhythm, no murmurs gallops or rubs - normal S1, normal S2 Pulses: 2(+) throughout Abdomen: abdomen soft, non-tender, no abnormal masses and no hepatosplenomegaly Musculoskeletal: no gait disturbance, no joint inflammation, no deforming arthritis Extremities: no edema and no cyanosis Neuro: grossly normal exam Results & Data ([facility]) Vital Signs (Past 12 Hours) Vital Signs Temp Pulse Resp BP Pulse Ox 08/25/20 08:19 36.3 C L 89 19 115/68 99 08/25/20 04:03 36.3 C L 68 18 134/70 93 08/25/20 03:20 36.4 C L 86 18 117/74 99 08/24/20 23:45 19 Laboratory Results Laboratory Results - last 24 hr 08/24/20 08/24/20 08/24/20 11:18 16:30 20:15 Sodium Potassium Chloride Carbon Dioxide Anion Gap BUN Creatinine Est Cr Clr Drug Dosing Est GFR ( Amer) Est GFR (Non-Af Amer) BUN/Creatinine Ratio Glucose POC Glucose 118 H 120 H 180 H Calcium 08/25/20 08/25/20 06:32 07:19 Sodium 135 L Potassium 3.6 D Chloride 92 L Carbon Dioxide 39 H Anion Gap 4.0 BUN 51 H Creatinine 1.71 H Est Cr Clr Drug Dosing 45.9 Est GFR ( Amer) 45.0 Est GFR (Non-Af Amer) 38.9 BUN/Creatinine Ratio 29.8 H Glucose 132 H POC Glucose 146 H Calcium 8.9 Medications Administered Current Inpatient Medications Acetaminophen (Acetaminophen 325 Mg Tab) 650 mg PO Q4H PRN PRN Reason: Moderate Pain Stop: 09/15/20 10:36 Last Admin: 08/18/20 16:48 Dose: 650 mg Documented by: Al Hydrox/Mg Hydrox/Simethicone (Aluminum/Magnesium Susp 30 Ml Udc) 15 ml PO Q4H PRN PRN Reason: Dyspepsia Stop: 09/15/20 07:34 Last Admin: 08/24/20 00:44 Dose: 15 ml Documented by: Albuterol (Albuterol Hfa 8 Gm Inhaler) 2 puffs INH QID PRN PRN Reason: Shortness Of Breath Or Wheezing Stop: 09/15/20 10:36 Last Admin: 08/19/20 08:35 Dose: 2 puffs Documented by: Ascorbic Acid (Ascorbic Acid 500 Mg Tab) 500 mg PO BID [facility] Stop: 09/15/20 10:36 Last Admin: 08/25/20 08:44 Dose: 500 mg Documented by: Aspirin (Aspirin 81 Mg Ectab) 81 mg PO QAM [facility] Stop: 09/15/20 08:59 Last Admin: 08/19/20 09:42 Dose: 81 mg Documented by: Atorvastatin Calcium (Atorvastatin 40 Mg Tab) 80 mg PO QPM [facility] Stop: 09/15/20 20:59 Last Admin: 08/18/20 20:53 Dose: 80 mg Documented by: Bisacodyl (Bisacodyl 5 Mg Tabec) 10 mg PO DAILY PRN PRN Reason: Constipation Stop: 09/17/20 13:42 Last Admin: 08/23/20 16:45 Dose: 10 mg Documented by: Clopidogrel Bisulfate (Clopidogrel Bisulfate 75 Mg Tab) 75 mg PO QAM [facility] Stop: 09/15/20 10:36 Last Admin: 08/18/20 08:07 Dose: 75 mg Documented by: Cyanocobalamin (Cyanocobalamin 1000 Mcg/Ml Vial) 1,000 mcg IM Q30D [facility] Stop: 09/19/20 08:59 Last Admin: 08/20/20 08:29 Dose: 1,000 mcg Documented by: Dextrose (Dextrose 50% 50 Ml Syringe) 25 - 50 ml IV UD PRN; Protocol PRN Reason: Hypoglycemia Protocol Stop: 09/15/20 10:36 Docusate Sodium (Docusate Sodium 100 Mg Cap) 100 mg PO BID [facility] Stop: 09/15/20 10:36 Last Admin: 08/25/20 08:58 Dose: Not Given Documented by: Duloxetine HCl (Duloxetine Hcl 20 Mg Cap) 20 mg PO QAM [facility] Stop: 09/15/20 10:36 Last Admin: 08/25/20 08:45 Dose: 20 mg Documented by: Glucagon (Glucagon For Inj 1 Mg Vial) 1 mg SQ UD PRN; Protocol PRN Reason: Hypoglycemia Protocol Stop: 09/15/20 10:36 Glucose (Glucose 10 Tabs/Tube) 4 - 8 tabs PO UD PRN; Protocol PRN Reason: Hypoglycemia Protocol Stop: 09/15/20 10:36 Glucose (Glucose 40% Gel 15 Gm Tube) 15 - 30 gm PO UD PRN; Protocol PRN Reason: Hypoglycemia Protocol Stop: 09/15/20 10:36 Dobutamine HCl 500 mg/ (Dextrose) 250 mls @ 8.438 mls/hr IV .Q24H [facility]; Protocol Stop: 09/20/20 22:44 Last Admin: 08/24/20 21:00 Dose: 2.5 mcg/kg/min, 8.4 mls/hr Documented by: Insulin Aspart (Insulin Aspart 100 Units/Ml 3 Ml Pen) 0 units SC ACHS [facility] Stop: 09/19/20 11:29 Last Admin: 08/25/20 08:45 Dose: 4 units Documented by: Insulin Glargine (Insulin Glargine Solostar 100 Units/Ml 3 Ml Pen) 15 units SC DAILY [facility] Stop: 09/15/20 11:59 Last Admin: 08/25/20 08:45 Dose: 15 units Documented by: Isosorbide Mononitrate (Isosorbide [place] Extended Rel 60 Mg Tabcr) 60 mg PO QAM [facility] Stop: 09/15/20 10:36 Last Admin: 08/18/20 08:07 Dose: 60 mg Documented by: Magnesium Hydroxide (Magnesium Hydroxide Susp 30 Ml Udc) 30 ml PO Q12H PRN PRN Reason: Constipation Stop: 09/15/20 07:34 Last Admin: 08/24/20 14:30 Dose: 30 ml Documented by: Magnesium Oxide (Magnesium Oxide 400 Mg Tab) 400 mg PO DAILY [facility] Stop: 09/15/20 10:36 Last Admin: 08/25/20 08:45 Dose: 400 mg Documented by: Miconazole Nitrate (Miconazole Nitrate Powder 43 Gm) 1 appln EXT BID [facility] Stop: 09/15/20 12:53 Last Admin: 08/25/20 08:49 Dose: 1 appln Documented by: Miscellaneous (Carbohydrates For Hypoglycemia ) 15 - 30 gm PO UD PRN PRN Reason: Hypoglycemia Protocol Stop: 09/15/20 10:36 Nitroglycerin (Nitroglycerin Sl 0.4 Mg/Tab Tab) 0.4 mg SL UD PRN PRN Reason: Chest Pain Stop: 09/15/20 10:36 Pantoprazole Sodium (Pantoprazole 40 Mg Tab) 40 mg PO QAM [facility] Stop: 09/20/20 08:59 Last Admin: 08/25/20 08:45 Dose: 40 mg Documented by: Polyethylene Glycol (Polyethylene (Miralax) 17 Gm Pack) 17 gm PO DAILY [facility] Stop: 09/18/20 08:59 Last Admin: 08/25/20 08:58 Dose: Not Given Documented by: Potassium Chloride (Potassium Chloride Crtab 20 Meq Tabcr) 20 meq PO TID [facility] Stop: 09/22/20 13:59 Last Admin: 08/25/20 08:44 Dose: 20 meq Documented by: Torsemide (Torsemide 20 Mg Tab) 40 mg PO TID [facility] Stop: 09/23/20 11:29 Last Admin: 08/25/20 08:44 Dose: 40 mg Documented by: Vitamin D (Cholecalciferol 1,000 Units 25 Mcg Tab) 5,000 units PO Q2D [facility] Stop: 09/16/20 08:59 Last Admin: 08/25/20 08:45 Dose: 5,000 units Documented by: Warfarin Sodium (Warfarin Sod 1.25 Mg Tab) 1.25 mg PO DAILY@1600 [facility] Stop: 09/15/20 15:59 Last Admin: 08/17/20 17:17 Dose: 1.25 mg Documented by:
--- NOTE | 2020-08-25 13:14 | Palliative Care Consultation ---
Date of Consultation August 25, 2020 Assessment & Plan (1) Palliative care encounter: This is a 74 year old male who presented to the [facility] with worsening shortness of breath. He has been progressively having worsening dyspnea and difficulty with ambulation without becoming short of breath. He had a recent inpatient hospitalization from 07/14/2020 to 07/25/2020 and then transferred to [facility] for rehab on 07/25/2020 to 08/10/2020. Significant PMH include: CHF, HTN, HLD, CKD IV, pAF, history of AVR, CABG x 1, history of MVR, OBED (wears CPAP at night at home), pHTN, cardiorenal syndrome, and others. This gentleman has been followed by numerous specialists, including Cardiology. To date, he is on a Dobutamine and Lasix gtts. The goal is to wean both of them and transition to oral medicinal management; however, his condition is truly end stage and his life expectancy is limited. Palliative Medicine was consulted to discuss overall goals of care. I met with Mr. Durham who was AAOx3 and in no apparent distress. He had just finished eating 75% of his lunch with no difficulties. He was able to hold a full and meaningful conversation. He has full insight into the extent of his disease. He explained that he lives in a mobile home but has been struggling to get around. He does have a neighbor that checks in on him daily. He understands that the goal is to wean him from his continuous infusions, knowing that he is entering a vicious medical cycle with his condition. 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 He understands that his symptoms are to worsen again and he may not get back to his baseline functional status. He states that he eventually would like to transition to a more hospice focused approach in his care at a SNF. He did appoint his niece, Marita Crain as his legal POA for which they already have paperwork. She does live in [place], [place] but has been up to see him over the past few weeks. He said that if his would appear to be more rapid, he would want her to know so that she could potentially visit. FOr now, continue weaning and work towards SNF with Hospice support. Depending on how patient does, could try to transition to skill him and eventually transition to hospice, which he is also agreeable to. Palliative will follow as needed. POLST could be helpful prior to discharge to SNF. (2) Acute on chronic systolic heart failure: (3) Cardiorenal syndrome with renal failure: (4) OBED (obstructive sleep apnea): (5) Weakness: History of Present Illness Reason for Consultation: Goals of Care Requesting Physician: Dr. Steel Attending Physician: Park Kulkarni DO History of Present Illness This is a 74 year old male who presented to the [facility] with worsening shortness of breath. He has been progressively having worsening dyspnea and difficulty with ambulation without becoming short of breath. He had a recent inpatient hospitalization from 07/14/2020 to 07/25/2020 and then transferred to [facility] for rehab on 07/25/2020 to 08/10/2020. Significant PMH include: CHF, HTN, HLD, CKD IV, pAF, history of AVR, CABG x 1, history of MVR, BOED (wears CPAP at night at home), pHTN, cardiorenal syndrome, and others. This gentleman has been followed by numerous specialists, including Cardiology. To date, he is on a Dobutamine and Lasix gtts. The goal is to wean both of them and transition to oral medicinal management; however, his condition is truly end stage and his life expectancy is limited. Palliative Medicine was consulted to discuss overall goals of care. Please see A/P for further details. Thanks for involving palliative medicine with this individual. Allergies Allergy/AdvReac Type Severity Reaction Status Date / Time No Known Allergies Allergy Unverified 02/12/20 18:24 Home Medications Medication Instructions Recorded Confirmed Type albuterol sulfate 2 puff INHALATION QID PRN 12/07/19 08/16/20 History ascorbic acid (vitamin C) [Vitamin 500 mg PO BID 12/07/19 08/16/20 History C] clopidogrel 75 mg PO QAM 12/07/19 08/16/20 History docusate sodium 100 mg PO BID 12/07/19 08/16/20 History furosemide 80 mg PO QAM 12/07/19 08/16/20 History nitroglycerin 0.4 mg SUBLINGUAL DIRECTED PRN 12/07/19 08/16/20 History omeprazole 20 mg PO QAM PRN 12/07/19 08/16/20 History atorvastatin 80 mg PO QPM 12/30/19 08/16/20 History cyanocobalamin (vitamin B-12) 1,000 mcg IM MO 12/30/19 08/16/20 History magnesium oxide 400 mg PO DAILY 12/30/19 08/16/20 History metoprolol succinate 100 mg PO DAILY 12/30/19 08/16/20 History isosorbide mononitrate 60 mg PO QAM 30 Days #60 tab 01/06/20 08/16/20 Rx duloxetine 20 mg PO QAM 02/12/20 08/16/20 History cholecalciferol (vitamin D3) 125 mcg PO Q2D 07/14/20 08/16/20 History [Vitamin D3] furosemide 40 mg PO DAILY@1300 07/14/20 08/16/20 History insulin aspart U-100 [Novolog 8 unit SUBCUT AC #15 ml 07/25/20 08/16/20 Rx Flexpen U-100 Insulin] insulin degludec [Tresiba 15 unit SUBCUT QAM #15 ml 07/25/20 08/16/20 Rx FlexTouch U-100] warfarin 1.25 mg PO DAILY #20 tab 07/25/20 08/16/20 Rx amiodarone 200 mg PO DAILY 08/16/20 08/16/20 History Patient History Medical History Acute respiratory failure with hypoxia CAD (coronary artery disease) 07/2018: coronary artery bypass grafting x1 with reverse saphenous vein from aorta to right coronary artery via endoscopic saphenous vein harvesting; PCI to mid LAD with RIZWAN Chronic HFrEF (heart failure with reduced ejection fraction) Chronic kidney disease CKD (chronic kidney disease) stage 4, GFR 15-29 ml/min Diabetes mellitus, type 2 GERD (gastroesophageal reflux disease) History of ventricular fibrillation Hyperlipidemia Hypertension OBED on CPAP PAF (paroxysmal atrial fibrillation) Pernicious anemia Surgical History H/O aortic valve replacement Status post bioprosthetic AVR in 2004 Aortic valve prosthesis stenosis and mitral regurgitation requiring redo sternotomy jul 21 2013 with redo AVR and subsequent MVR. H/O mitral valve replacement History of appendectomy History of cardiac cath History of colonoscopy History of coronary artery bypass graft x 1 coronary artery bypass grafting x1 with reverse saphenous vein from aorta to right coronary artery via endoscopic saphenous vein harvesting. History of heart artery stent History of heart valve replacement ICD (implantable cardioverter-defibrillator) in place Family History Father Heart disease CO @ age 64 Mother , age 34, stomach ca Cancer Social History Smoking Status: Never smoker Second Hand Exposure: No; Hx Alcohol Use: Yes Hx Substance Use: No Preferred Language: Malay Communication Ability: Effective Certified Legal Investigator Required: No Beliefs That Will Affect Care: None marital status: Single Current Living Situation: Alone current occupation: retired Other Information That Helps Us Care for You: No Feels Safe at Home: Yes Safety Concerns: Feels Safe At This Time Assistive Devices: Oxygen - Continuous Review of Systems Review of Systems: [place] System Assessment Scale: Pain: 0/3 Shortness of Breath: 1/3 Tiredness: 1/3 Lack of appetite: 0/3 Anxiety: 0/3 Palliative Performance Scale: 30% Physical Exam Constitutional: + obese, cooperative and comfortable ENMT: external ear and nose normal, oropharynx normal Nose: + dry nasal mucous membranes Respiratory: + cough Auscultation: + rales Cardiovascular: RRR, no murmur, no edema Heart Sounds: normal S1, normal S2 and + murmur Extremities: normal capillary refill and + edema Gastrointestinal (Abdomen): normal bowel sounds, soft, nontender, no hepatosplenomegaly Inspection/Auscultation: abdomen normal to inspection and normal bowel sounds Percussion/Palpation: abdomen soft Skin: + skin tightening and + pallor Psychiatric: A+Ox3, euthymic affect Insight: good insight Judgement: good judgement Results & Data ([facility]) Vital Signs (Past 12 Hours) Vital Signs Temp Pulse Resp BP Pulse Ox 08/25/20 12:23 36.5 C 88 20 115/70 93 08/25/20 08:19 36.3 C L 89 19 115/68 99 08/25/20 04:03 36.3 C L 68 18 134/70 93 08/25/20 03:20 36.4 C L 86 18 117/74 99 PG Care Time/CCT Total # of Minutes Spent Total Time Spent with Patient: Total time spent is greater than 50% in coordination of care (as documented) at patient's floor/unit and/or counseling patient: 70 minutes with > 50% of that time spent assessing the patient, discussing goals of care with patient and collaborating with IDT ` Coding Level of Care Code 75316 Initial Inpt Care Lvl 3 Diagnoses Palliative care encounter Z51.5 Acute on chronic systolic heart failure I50.23 Cardiorenal syndrome with renal failure I13.10 OBED (obstructive sleep apnea) G47.33 Weakness R53.1 Time Spent (min) 70
[2020-08-25 18:27] LABS: Appearance Urine Cloudy (Clear); Bacteria Urine Automated 1+ (Negative); Bilirubin Urine Negative (Negative); Blood Urine 3+ (Negative); Color Urine Yellow; Epithelial Cell Urine Auto 0-5 /lpf (0-5); Glucose Urine UA Negative (Negative); Ketones Urine Negative (Negative); Leukocyte Esterase Urine 2+ (Negative); Nitrite Urine Negative (Negative); Protein Urine Negative (Negative); Specific Gravity Urine 1.012 (1.000-1.030); Urobilinogen Urine Negative (Negative); WBC Urine Automated >30 /hpf (0-5)
--- NOTE | 2020-08-25 22:17 | Hospitalist Progress Note ---
Date of Service August 25, 2020 Assessment & Plan (1) Acute on chronic systolic heart failure: Cardiology managing diuretics and are transitioning him to PO torsemide. Continue following daily weights, strict I/Os and clinical progress. He is down 7kg since 08/17 (although noted this is a bedscale weight) Notably not on GDMT including no ACEI/ARB/Entresto/aldactone 2/2 hyperkalemia in the past in setting of renal insufficiency. He is on Imdur and we may consider adding hydralazine as blood pressure permits. Toprol has not been restarted yet. Will wait for patient to be off dobutamine and then discuss with cardiology. (2) Acute respiratory failure with hypoxemia: Thought secondary to underlying CHF exacerbation, improved with diuresis and dobutamine. He reports having been on some home oxygen coming into this admission which is a new need for him just in the last few months. (3) Cardiorenal syndrome with renal failure: Nephro following, improvement in renal function overall with current t reatment. Continues to have good urine output. (4) Acute kidney injury: as above. (5) CKD (chronic kidney disease) stage 4, GFR 15-29 ml/min: Acute renal failure with CKD stage IV, possible secondary to cardiac decompensation Developed oliguric renal failure, leading to progressive volume overload, nephrology is on board. Concern for hepatorenal syndrome caused by passive liver congestion with severe decompensated CHF. Patient had adequate urine output in the last 24 hours. Matthews catheter is in place. Patient has responded to Lasix/dobutamine combination. Creatinine today down to 1.87 from 2.10. (6) PAF (paroxysmal atrial fibrillation): coumadin on hold-rate is <100. Will discuss proper time to restart anticoagulation with cardiology (7) Transaminitis: Improved, likely related to passive congestion from heart failure exacerbation. (8) Valvular heart disease: Noted complex cardiac history with prosthetic aortic valve and severe MR. (9) Diabetes mellitus, type 2: Hold home insulin and utilize glargine and Novolog with carb coverage and sliding scale as needed. Currently euglycemic and at goal. Recent A1C in June 2020 was at goal 6.8. (10) DVT prophylaxis: SCDs/warfarin on hold DNR/DNI Dipso-uncertain at this time. Patient has poor prognosis and is terminally ill. Palliative discussion today with patient ultimately not desiring any further escalations of care after this admission. Park Kulkarni DO [facility] Hospitalist Admission and Anticipated Discharge Date Admission Date: August 16, 2020 Subjective 74 yo M presented with generalized weakness, acute on chronic dyspnea and decreased appetite. He was recently admitted to [facility] with acute CHF and pneumonia followed by a stint at rehab and then came from home. He has a complex cardiac history and since admission has been diuresed with furosemide. On 08/19, he was put into the ICU for acute respiratory failure and was started on a lasix infusion and a dobutamine infusion. He developed acute kidney injury on chronic kidney disease, thought secondary to cardiorenal syndrome. He continued to decline with signs of liver failure likely related to passive congestion. He remains on Lasix and dobutamine drips. Today he is being transitioned off the drip. He is still making good urine with creatinine going down. He denies any pain, SOB or other issues. Enema given last night resolved his constipation. He reports some residual gassiness/bloating. Palliative discussion today. He discussed with palliative provider that he doesn't want to go back on any drips or pressors once he is optimized this admission. If he should decline, he prefers to shift to more of a hospice focus. He is a confirmed DNR and his daughter Marita is his medical POA in [place]. If it looks as though he were expected to pass, she would want to be here. For now, doing well overall today Review of Systems Review of Systems: All systems reviewed & are unremarkable except as noted in Subjective Physical Exam Physical Exam: CONSTITUTIONAL: WNWD, vitals as above, generally well- appearing EYES: normal conjunctivae, no scleral icterus ENT: external ear and nose normal, MMM RESPIRATORY: clear to auscultation bilaterally, no crackles, rales or wheezes, normal respiratory effort CARDIOVASCULAR: regular rate and rhythm, S1 and 2 heard without murmurs, gallops or rubs, no JVD, no peripheral edema GASTROINTESTINAL: soft, nontender, nondistended. MUSCULOSKELETAL: strength 5/5 throughout, head is normocephalic and atraumatic SKIN: warm and dry NEUROLOGIC: CN 2-12 grossly intact, no sensory deficit, normal cognition, normal speech, no tremor, no gross focal deficits. PSYCHIATRIC: alert cooperative and oriented to person, place and time. Results & Data Results & Data ([facility]) Vital Signs (Past 12 Hours) Vital Signs Temp Pulse Resp BP Pulse Ox 08/25/20 19:53 36.5 C 95 H 18 135/74 94 08/25/20 15:45 36.4 C L 87 19 116/71 99 08/25/20 12:23 36.5 C 88 20 115/70 93 Laboratory Results BMP 08/25/20 06:32 Sodium 135 L Potassium 3.6 D Chloride 92 L Carbon Dioxide 39 H BUN 51 H Creatinine 1.71 H Glucose 132 H Calcium 8.9 Urine 08/25/20 Range/Units 17:40 Urine Color Yellow Urine Appearance Cloudy A (Clear) Urine pH 5.0 (4.5-7.5) Ur Specific [place] 1.012 (1.000-1.030) Urine Protein Negative (Negative) Urine Glucose (UA) Negative (Negative) Medications Administered Current Inpatient Medications Acetaminophen (Acetaminophen 325 Mg Tab) 650 mg PO Q4H PRN PRN Reason: Moderate Pain Stop: 09/15/20 10:36 Last Admin: 08/18/20 16:48 Dose: 650 mg Documented by: Al Hydrox/Mg Hydrox/Simethicone (Aluminum/Magnesium Susp 30 Ml Udc) 15 ml PO Q4H PRN PRN Reason: Dyspepsia Stop: 09/15/20 07:34 Last Admin: 08/24/20 00:44 Dose: 15 ml Documented by: Albuterol (Albuterol Hfa 8 Gm Inhaler) 2 puffs INH QID PRN PRN Reason: Shortness Of Breath Or Wheezing Stop: 09/15/20 10:36 Last Admin: 08/19/20 08:35 Dose: 2 puffs Documented by: Ascorbic Acid (Ascorbic Acid 500 Mg Tab) 500 mg PO BID [facility] Stop: 09/15/20 10:36 Last Admin: 08/25/20 20:47 Dose: 500 mg Documented by: Aspirin (Aspirin 81 Mg Ectab) 81 mg PO QAM [facility] Stop: 09/15/20 08:59 Last Admin: 08/19/20 09:42 Dose: 81 mg Documented by: Atorvastatin Calcium (Atorvastatin 40 Mg Tab) 80 mg PO QPM [facility] Stop: 09/15/20 20:59 Last Admin: 08/18/20 20:53 Dose: 80 mg Documented by: Bisacodyl (Bisacodyl 5 Mg Tabec) 10 mg PO DAILY PRN PRN Reason: Constipation Stop: 09/17/20 13:42 Last Admin: 08/23/20 16:45 Dose: 10 mg Documented by: Clopidogrel Bisulfate (Clopidogrel Bisulfate 75 Mg Tab) [facility] Stop: 09/15/20 10:36 Last Admin: 08/18/20 08:07 Dose: 75 mg Documented by: Cyanocobalamin (Cyanocobalamin 1000 Mcg/Ml Vial) 1,000 mcg IM Q30D [facility] Stop: 09/19/20 08:59 Last Admin: 08/20/20 08:29 Dose: 1,000 mcg Documented by: Dextrose (Dextrose 50% 50 Ml Syringe) 25 - 50 ml IV UD PRN; Protocol PRN Reason: Hypoglycemia Protocol Stop: 09/15/20 10:36 Docusate Sodium (Docusate Sodium 100 Mg Cap) 100 mg PO BID [facility] Stop: 09/15/20 10:36 Last Admin: 08/25/20 20:47 Dose: 100 mg Documented by: Duloxetine HCl (Duloxetine Hcl 20 Mg Cap) 20 mg PO [facility] Stop: 09/15/20 10:36 Last Admin: 08/25/20 08:45 Dose: 20 mg Documented by: Glucagon (Glucagon For Inj 1 Mg Vial) 1 mg SQ UD PRN; Protocol PRN Reason: Hypoglycemia Protocol Stop: 09/15/20 10:36 Glucose (Glucose 10 Tabs/Tube) 4 - 8 tabs PO UD PRN; Protocol PRN Reason: Hypoglycemia Protocol Stop: 09/15/20 10:36 Glucose (Glucose 40% Gel 15 Gm Tube) 15 - 30 gm PO UD PRN; Protocol PRN Reason: Hypoglycemia Protocol Stop: 09/15/20 10:36 Dobutamine HCl 500 mg/ (Dextrose) 250 mls @ 8.438 mls/hr IV .Q24H [facility]; Protocol Stop: 09/20/20 22:44 Last Admin: 08/24/20 21:00 Dose: 2.5 mcg/kg/min, 8.4 mls/hr Documented by: Insulin Aspart (Insulin Aspart 100 Units/Ml 3 Ml Pen) 0 units SC [facility] Stop: 09/19/20 11:29 Last Admin: 08/25/20 21:31 Dose: Not Given Documented by: Insulin Glargine (Insulin Glargine Solostar 100 Units/Ml 3 Ml Pen) 15 units SC DAILY [facility] Stop: 09/15/20 11:59 Last Admin: 08/25/20 08:45 Dose: 15 units Documented by: Isosorbide Mononitrate (Isosorbide [place] Extended Rel 60 Mg Tabcr) 60 mg PO QAM [facility] Stop: 09/15/20 10:36 Last Admin: 08/18/20 08:07 Dose: 60 mg Documented by: Magnesium Hydroxide (Magnesium Hydroxide Susp 30 Ml Udc) 30 ml PO Q12H PRN PRN Reason: Constipation Stop: 09/15/20 07:34 Last Admin: 08/24/20 14:30 Dose: 30 ml Documented by: Magnesium Oxide (Magnesium Oxide 400 Mg Tab) 400 mg PO DAILY [facility] Stop: 09/15/20 10:36 Last Admin: 08/25/20 08:45 Dose: 400 mg Documented by: Miconazole Nitrate (Miconazole Nitrate Powder 43 Gm) 1 appln EXT BID [facility] Stop: 09/15/20 12:53 Last Admin: 08/25/20 20:47 Dose: 1 appln Documented by: Miscellaneous (Carbohydrates For Hypoglycemia ) 15 - 30 gm PO UD PRN PRN Reason: Hypoglycemia Protocol Stop: 09/15/20 10:36 Nitroglycerin (Nitroglycerin Sl 0.4 Mg/Tab Tab) 0.4 mg SL UD PRN PRN Reason: Chest Pain Stop: 09/15/20 10:36 Pantoprazole Sodium (Pantoprazole 40 Mg Tab) 40 mg PO QAM [facility] Stop: 09/20/20 08:59 Last Admin: 08/25/20 08:45 Dose: 40 mg Documented by: Polyethylene Glycol (Polyethylene (Miralax) 17 Gm Pack) 17 gm PO DAILY [facility] Stop: 09/18/20 08:59 Last Admin: 08/25/20 08:58 Dose: Not Given Documented by: Potassium Chloride (Potassium Chloride Crtab 20 Meq Tabcr) 20 meq PO TID [facility] Stop: 09/22/20 13:59 Last Admin: 08/25/20 20:47 Dose: 20 meq Documented by: Torsemide (Torsemide 20 Mg Tab) 40 mg PO TID [facility] Stop: 09/23/20 11:29 Last Admin: 06/05/21 20:47 Dose: 40 mg Documented by: Vitamin D (Cholecalciferol 1,000 Units 25 Mcg Tab) 5,000 units PO Q2D [facility] Stop: 09/16/20 08:59 Last Admin: 08/25/20 08:45 Dose: 5,000 units Documented by: Warfarin Sodium (Warfarin Sod 1.25 Mg Tab) 1.25 mg PO DAILY@1600 [facility] Stop: 09/15/20 15:59 Last Admin: 08/17/20 17:17 Dose: 1.25 mg Documented by:
[2020-08-26 05:22] LABS: Calcium 8.7 mg/dl (8.5-10.1); Creatinine Clr Calc Pharmacy 44.1 ml/min; Est GFR (African American) 42.9 ml/min; Potassium 3.9 mmol/L (3.5-5.1)
[2020-08-26] MEDS: POTASSIUM CHLORIDE CRTAB 20 MEQ TABCR PO SCH ×3 (08:57→20:49)
[2020-08-26] MEDS: MAGNESIUM OXIDE 400 MG TAB PO SCH (08:57)
[2020-08-26] MEDS: PANTOprazole 40 MG TAB PO SCH (08:57)
[2020-08-26] MEDS: TORSEMIDE 20 MG TAB PO SCH ×2 (08:57→20:49)
[2020-08-26] MEDS: ASCORBIC ACID 500 MG TAB PO SCH ×2 (08:57→20:49)
[2020-08-26] MEDS: DULoxetine HCL 20 MG CAP PO SCH (08:57)
[2020-08-26] MEDS: INSULIN GLARGINE SOLOSTAR 100 UNITS/ML 3 ML PEN SC SCH (08:58)
[2020-08-26] MEDS: MICONAZOLE NITRATE POWDER 43 GM EXT SCH ×2 (08:59→20:49)
[2020-08-26] MEDS: INSULIN ASPART 100 UNITS/ML 3 ML PEN SC SCH ×4 (08:59→22:49)
[2020-08-26] MEDS: DOCUSATE SODIUM 100 MG CAP PO SCH ×2 (09:12→20:48)
[2020-08-26] MEDS: POLYETHYLENE (MIRALAX) 17 GM PACK PO SCH (09:12)
--- NOTE | 2020-08-26 10:10 | Nephrology Progress Note ---
Date of Service August 26, 2020 Assessment & Plan (1) Acute kidney injury: Patient with acute kidney injury on CKD. Etiology likely cardiorenal syndrome. Patient is diuresing well and was net -360ml. Creatinine stable at 1.7. Electrolytes are stable. We will continue to monitor renal function with daily BMP. Monitor input output. (2) Acute on chronic systolic heart failure: Patient with acute on chronic systolic CHF.he will continue Demadex per cardiology. We will continue to monitor input output and daily standing weight Admission and Anticipated Discharge Date Admission Date: August 16, 2020 Subjective Seen in follow-up for acute kidney injury. His breathing is about the same. He remains on oxygen 3 L. No leg swelling. He was net -360 mL. Creatinine is stable. Review of Systems Review of Systems: All systems reviewed & are unremarkable except as noted in HPI & below Physical Exam Physical Exam: General exam: Appears comfortable, no acute distress on oxygen nasal cannula HEENT: Pupils are equal and reactive to light Neck: No JVD, neck is supple trachea is midline Respiratory system: Clear breath sounds bilaterally. Gastrointestinal: Abdomen is soft, non distended, non tender, bowel sounds are present CVS: Regular rate and rhythm. No murmurs, rubs or gallops Musculoskeletal: No joint or muscle tenderness Extremities: Non tender, no edema, peripheral pulses are present Neuro: Oriented, no tremors, no focal neurological deficits Skin: No rashes Results & Data ([facility]) Vital Signs (Past 12 Hours) Vital Signs Temp Pulse Resp BP Pulse Ox 08/26/20 07:49 36.4 C L 86 19 126/71 99 08/25/20 23:53 36.4 C L 86 22 126/71 99 Laboratory Results 08/26/20 04:21
--- NOTE | 2020-08-26 12:14 | Cardiology Progress Note ---
Date of Service August 26, 2020 Assessment & Plan (1) Valvular heart disease: (2) Acute on chronic systolic heart failure: (3) Cardiorenal syndrome with renal failure: (4) Acute and chronic respiratory failure with hypoxia: The dobutamine infusion was not stopped yesterday and I will stop it today. He has a contraction alkalosis and I am going to lower his torsemide to twice daily. The patient has a history of hyperkalemia on ASIA and ARB's which is unfortunate for him. After the dobutamine has been discontinued and he is stable we will start him on long-acting metoprolol. I have ordered metoprolol XL 12.5 mg daily to start tomorrow. Admission and Anticipated Discharge Date Admission Date: August 16, 2020 Subjective Patient appears comfortable and is eating lunch. Review of Systems Review of Systems: All systems reviewed & are unremarkable except as noted in Subjective Physical Exam Physical Exam: General: no acute distress and stated age Head: normocephalic, no masses, lesions, tenderness or abnormalities Eyes: conjunctiva are pink and non-injected, sclera clear Neck: supple, no adenopathy, no bruits, normal jugular venous pulse, no hepatojugular reflux Chest: normal shape and normal respiratory effort Lungs: clear to auscultation and percussion Cardiac Exam: - regular rate & rhythm, no murmurs gallops or rubs - normal S1, normal S2 Pulses: 2(+) throughout Abdomen: abdomen soft, non-tender, no abnormal masses and no hepatosplenomegaly Musculoskeletal: no gait disturbance, no joint inflammation, no deforming arthritis Extremities: no edema and no cyanosis Neuro: grossly normal exam Results & Data ([facility]) Vital Signs (Past 12 Hours) Vital Signs Temp Pulse Resp BP Pulse Ox 08/26/20 11:59 36.5 C 86 22 115/69 98 08/26/20 07:49 36.4 C L 86 19 126/71 99 Laboratory Results Laboratory Results - last 24 hr 08/25/20 08/25/20 08/25/20 16:38 17:40 20:40 Sodium Potassium Chloride Carbon Dioxide Anion Gap BUN Creatinine Est Cr Clr Drug Dosing Est GFR ( Amer) Est GFR (Non-Af Amer) BUN/Creatinine Ratio Glucose POC Glucose 151 H 153 H Calcium Urine Color Yellow Urine Appearance Cloudy A Urine pH 5.0 Ur Specific [place] 1.012 Urine Protein Negative Urine Glucose (UA) Negative Urine Ketones Negative Urine Blood 3+ H Urine Nitrite Negative Urine Bilirubin Negative Urine Urobilinogen Negative Ur Leukocyte Esterase 2+ H Urine WBC (Auto) >30 H Urine RBC (Auto) 10-30 H U Hyaline Cast (Auto) 5-10 H U Epithel Cells (Auto) 0-5 Urine Bacteria (Auto) 1+ H 08/26/20 08/26/20 08/26/20 04:21 07:19 11:23 Sodium 137 Potassium 3.9 Chloride 94 L Carbon Dioxide 41 H* Anion Gap 2.0 L BUN 48 H Creatinine 1.78 H Est Cr Clr Drug Dosing 44.1 Est GFR ( Amer) 42.9 Est GFR (Non-Af Amer) 37.0 BUN/Creatinine Ratio 27.0 H Glucose 116 H POC Glucose 166 H 164 H Calcium 8.7 Urine Color Urine Appearance Urine pH Ur Specific [place] Urine Protein Urine Glucose (UA) Urine Ketones Urine Blood Urine Nitrite Urine Bilirubin Urine Urobilinogen Ur Leukocyte Esterase Urine WBC (Auto) Urine RBC (Auto) U Hyaline Cast (Auto) U Epithel Cells (Auto) Urine Bacteria (Auto) Medications Administered Current Inpatient Medications Acetaminophen (Acetaminophen 325 Mg Tab) 650 mg PO Q4H PRN PRN Reason: Moderate Pain Stop: 09/15/20 10:36 Last Admin: 08/18/20 16:48 Dose: 650 mg Documented by: Al Hydrox/Mg Hydrox/Simethicone (Aluminum/Magnesium Susp 30 Ml Udc) 15 ml PO Q4H PRN PRN Reason: Dyspepsia Stop: 09/15/20 07:34 Last Admin: 08/24/20 00:44 Dose: 15 ml Documented by: Albuterol (Albuterol Hfa 8 Gm Inhaler) 2 puffs INH QID PRN PRN Reason: Shortness Of Breath Or Wheezing Stop: 09/15/20 10:36 Last Admin: 08/19/20 08:35 Dose: 2 puffs Documented by: Ascorbic Acid (Ascorbic Acid 500 Mg Tab) 500 mg PO BID [facility] Stop: 09/15/20 10:36 Last Admin: 08/26/20 08:57 Dose: 500 mg Documented by: Aspirin (Aspirin 81 Mg Ectab) 81 mg PO QAM [facility] Stop: 09/15/20 08:59 Last Admin: 08/19/20 09:42 Dose: 81 mg Documented by: Atorvastatin Calcium (Atorvastatin 40 Mg Tab) 80 mg PO QPM [facility] Stop: 09/15/20 20:59 Last Admin: 08/18/20 20:53 Dose: 80 mg Documented by: Bisacodyl (Bisacodyl 5 Mg Tabec) 10 mg PO DAILY PRN PRN Reason: Constipation Stop: 09/17/20 13:42 Last Admin: 08/23/20 16:45 Dose: 10 mg Documented by: Clopidogrel Bisulfate (Clopidogrel Bisulfate 75 Mg Tab) 75 mg PO QAM [facility] Stop: 09/15/20 10:36 Last Admin: 08/18/20 08:07 Dose: 75 mg Documented by: Cyanocobalamin (Cyanocobalamin 1000 Mcg/Ml Vial) 1,000 mcg IM Q30D [facility] Stop: 09/19/20 08:59 Last Admin: 08/20/20 08:29 Dose: 1,000 mcg Documented by: Dextrose (Dextrose 50% 50 Ml Syringe) 25 - 50 ml IV UD PRN; Protocol PRN Reason: Hypoglycemia Protocol Stop: 09/15/20 10:36 Docusate Sodium (Docusate Sodium 100 Mg Cap) 100 mg PO BID [facility] Stop: 09/15/20 10:36 Last Admin: 08/26/20 09:12 Dose: 100 mg Documented by: Duloxetine HCl (Duloxetine Hcl 20 Mg Cap) 20 mg PO QAM [facility] Stop: 09/15/20 10:36 Last Admin: 08/26/20 08:57 Dose: 20 mg Documented by: Glucagon (Glucagon For Inj 1 Mg Vial) 1 mg SQ UD PRN; Protocol PRN Reason: Hypoglycemia Protocol Stop: 09/15/20 10:36 Glucose (Glucose 10 Tabs/Tube) 4 - 8 tabs PO UD PRN; Protocol PRN Reason: Hypoglycemia Protocol Stop: 09/15/20 10:36 Glucose (Glucose 40% Gel 15 Gm Tube) 15 - 30 gm PO UD PRN; Protocol PRN Reason: Hypoglycemia Protocol Stop: 09/15/20 10:36 Insulin Aspart (Insulin Aspart 100 Units/Ml 3 Ml Pen) 0 units SC ACHS [facility] Stop: 09/19/20 11:29 Last Admin: 08/26/20 08:59 Dose: 6 units Documented by: Insulin Glargine (Insulin Glargine Solostar 100 Units/Ml 3 Ml Pen) 15 units SC DAILY [facility] Stop: 09/15/20 11:59 Last Admin: 08/26/20 08:58 Dose: 15 units Documented by: Isosorbide Mononitrate (Isosorbide [place] Extended Rel 60 Mg Tabcr) 60 mg PO QAM [facility] Stop: 09/15/20 10:36 Last Admin: 08/18/20 08:07 Dose: 60 mg Documented by: Magnesium Hydroxide (Magnesium Hydroxide Susp 30 Ml Udc) 30 ml PO Q12H PRN PRN Reason: Constipation Stop: 09/15/20 07:34 Last Admin: 08/24/20 14:30 Dose: 30 ml Documented by: Magnesium Oxide (Magnesium Oxide 400 Mg Tab) 400 mg PO DAILY [facility] Stop: 09/15/20 10:36 Last Admin: 08/26/20 08:57 Dose: 400 mg Documented by: Metoprolol Succinate (Metoprolol Succ 25mg Ext Rel Tab) 12.5 mg PO QAM [facility] Stop: 09/26/20 08:59 Miconazole Nitrate (Miconazole Nitrate Powder 43 Gm) 1 appln EXT BID [facility] Stop: 09/15/20 12:53 Last Admin: 08/26/20 08:59 Dose: 1 appln Documented by: Miscellaneous (Carbohydrates For Hypoglycemia ) 15 - 30 gm PO UD PRN PRN Reason: Hypoglycemia Protocol Stop: 09/15/20 10:36 Nitroglycerin (Nitroglycerin Sl 0.4 Mg/Tab Tab) 0.4 mg SL UD PRN PRN Reason: Chest Pain Stop: 09/15/20 10:36 Pantoprazole Sodium (Pantoprazole 40 Mg Tab) 40 mg PO QAM [facility] Stop: 09/20/20 08:59 Last Admin: 08/26/20 08:57 Dose: 40 mg Documented by: Polyethylene Glycol (Polyethylene (Miralax) 17 Gm Pack) 17 gm PO DAILY [facility] Stop: 09/18/20 08:59 Last Admin: 08/26/20 09:12 Dose: 17 gm Documented by: Potassium Chloride (Potassium Chloride Crtab 20 Meq Tabcr) 20 meq PO TID [facility] Stop: 09/22/20 13:59 Last Admin: 08/26/20 08:57 Dose: 20 meq Documented by: Torsemide (Torsemide 20 Mg Tab) 40 mg PO BID [facility] Stop: 09/25/20 20:59 Vitamin D (Cholecalciferol 1,000 Units 25 Mcg Tab) 5,000 units PO Q2D [facility] Stop: 09/16/20 08:59 Last Admin: 08/25/20 08:45 Dose: 5,000 units Documented by: Warfarin Sodium (Warfarin Sod 1.25 Mg Tab) 1.25 mg PO DAILY@1600 [facility] Stop: 09/15/20 15:59 Last Admin: 08/17/20 17:17 Dose: 1.25 mg Documented by:
--- NOTE | 2020-08-26 23:42 | Hospitalist Progress Note ---
Date of Service August 26, 2020 Assessment & Plan (1) Acute on chronic systolic heart failure: Doing well on PO torsemide. Continue following daily weights, strict I/Os and clinical progress. He is down 7kg since 08/17 (although noted this is a bedscale weight) Notably not on GDMT including no ACEI/ARB/Entresto/aldactone 2/2 hyperkalemia in the past in setting of renal insufficiency. He is on Imdur and we may consider adding hydralazine as blood pressure permits. Toprol has not been restarted yet. Will wait for patient to be off dobutamine and then consider adding. (2) Acute respiratory failure with hypoxemia: Thought secondary to underlying CHF exacerbation, improved with diuresis and dobutamine. He reports having been on some home oxygen coming into this admission which is a new need for him just in the last few months. (3) Cardiorenal syndrome with renal failure: Nephro following, improvement in renal function overall with current treatment. Continues to have good urine output. (4) Acute kidney injury: as above. (5) CKD (chronic kidney disease) stage 4, GFR 15-29 ml/min: Acute renal failure with CKD stage IV, possible secondary to cardiac decompensation Developed oliguric renal failure, leading to progressive volume overload, nephrology is on board. Concern for hepatorenal syndrome caused by passive liver congestion with severe decompensated CHF. Patient had adequate urine output in the last 24 hours. Matthews catheter is in place. Patient has responded to Lasix/dobutamine combination, which has been stopped. Creatinine today down to 1.7 (6) PAF (paroxysmal atrial fibrillation): coumadin on hold-rate is <100. Will discuss proper time to restart anticoagulation with cardiology (7) Transaminitis: Improved, likely related to passive congestion from heart failure exacerbation. (8) Valvular heart disease: Noted complex cardiac history with prosthetic aortic valve and severe MR. (9) Diabetes mellitus, type 2: Hold home insulin and utilize glargine and Novolog with carb coverage and sliding scale as needed. Currently euglycemic and at goal. Recent A1C in June 2020 was at goal 6.8. (10) DVT prophylaxis: SCDs/warfarin on hold DNR/DNI Dipso-uncertain at this time. Patient has poor prognosis and is terminally ill. Palliative discussion today with patient ultimately not desiring any further escalations of care after this admission. [facility] Admission and Anticipated Discharge Date Admission Date: August 16, 2020 Physical Exam Physical Exam: CONSTITUTIONAL: WNWD, vitals as above, generally well- appearing EYES: normal conjunctivae, no scleral icterus ENT: external ear and nose normal, MMM RESPIRATORY: clear to auscultation bilaterally, no crackles, rales or wheezes, normal respiratory effort CARDIOVASCULAR: regular rate and rhythm, S1 and 2 heard without murmurs, gallops or rubs, no JVD, no peripheral edema GASTROINTESTINAL: soft, nontender, nondistended. MUSCULOSKELETAL: strength 5/5 throughout, head is normocephalic and atraumatic SKIN: warm and dry NEUROLOGIC: CN 2-12 grossly intact, no sensory deficit, normal cognition, normal speech, no tremor, no gross focal deficits. PSYCHIATRIC: alert cooperative and oriented to person, place and time. Results & Data Results & Data ([facility]) Vital Signs (Past 12 Hours) Vital Signs Temp Pulse Resp BP Pulse Ox 08/26/20 23:35 36.3 C L 88 20 117/72 95 08/26/20 19:29 36.8 C 72 19 109/68 97 08/26/20 15:32 36.4 C L 86 20 112/73 100 08/26/20 11:59 36.5 C 86 22 115/69 98 Laboratory Results [facility] 08/26/20 04:21 Sodium 137 Potassium 3.9 Chloride 94 L Carbon Dioxide 41 H* BUN 48 H Creatinine 1.78 H Glucose 116 H Calcium 8.7 Medications Administered Current Inpatient Medications Acetaminophen (Acetaminophen 325 Mg Tab) 650 mg PO Q4H PRN PRN Reason: Moderate Pain Stop: 09/15/20 10:36 Last Admin: 08/18/20 16:48 Dose: 650 mg Documented by: Al Hydrox/Mg Hydrox/Simethicone (Aluminum/Magnesium Susp 30 Ml Udc) 15 ml PO Q4H PRN PRN Reason: Dyspepsia Stop: 09/15/20 07:34 Last Admin: 08/24/20 00:44 Dose: 15 ml Documented by: Albuterol (Albuterol Hfa 8 Gm Inhaler) 2 puffs INH QID PRN PRN Reason: Shortness Of Breath Or Wheezing Stop: 09/15/20 10:36 Last Admin: 08/19/20 08:35 Dose: 2 puffs Documented by: Ascorbic Acid (Ascorbic Acid 500 Mg Tab) 500 mg PO BID [facility] Stop: 09/15/20 10:36 Last Admin: 08/26/20 20:49 Dose: 500 mg Documented by: Aspirin (Aspirin 81 Mg Ectab) 81 mg PO QAM [facility] Stop: 09/15/20 08:59 Last Admin: 08/19/20 09:42 Dose: 81 mg Documented by: Atorvastatin Calcium (Atorvastatin 40 Mg Tab) 80 mg PO QPM [facility] Stop: 09/15/20 20:59 Last Admin: 08/18/20 20:53 Dose: 80 mg Documented by: Bisacodyl (Bisacodyl 5 Mg Tabec) 10 mg PO DAILY PRN PRN Reason: Constipation Stop: 09/17/20 13:42 Last Admin: 08/23/20 16:45 Dose: 10 mg Documented by: Clopidogrel Bisulfate (Clopidogrel Bisulfate 75 Mg Tab) 75 mg PO QAM [facility] Stop: 09/15/20 10:36 Last Admin: 08/18/20 08:07 Dose: 75 mg Documented by: Cyanocobalamin (Cyanocobalamin 1000 Mcg/Ml Vial) 1,000 mcg IM Q30D [facility] Stop: 09/19/20 08:59 Last Admin: 08/20/20 08:29 Dose: 1,000 mcg Documented by: Dextrose (Dextrose 50% 50 Ml Syringe) 25 - 50 ml IV UD PRN; Protocol PRN Reason: Hypoglycemia Protocol Stop: 09/15/20 10:36 Docusate Sodium (Docusate Sodium 100 Mg Cap) 100 mg PO BID [facility] Stop: 09/15/20 10:36 Last Admin: 08/26/20 20:48 Dose: 100 mg Documented by: Duloxetine HCl (Duloxetine Hcl 20 Mg Cap) 20 mg PO QAM [facility] Stop: 09/15/20 10:36 Last Admin: 08/26/20 08:57 Dose: 20 mg Documented by: Glucagon (Glucagon For Inj 1 Mg Vial) 1 mg SQ UD PRN; Protocol PRN Reason: Hypoglycemia Protocol Stop: 09/15/20 10:36 Glucose (Glucose 10 Tabs/Tube) 4 - 8 tabs PO UD PRN; Protocol PRN Reason: Hypoglycemia Protocol Stop: 09/15/20 10:36 Glucose (Glucose 40% Gel 15 Gm Tube) 15 - 30 gm PO UD PRN; Protocol PRN Reason: Hypoglycemia Protocol Stop: 09/15/20 10:36 Insulin Aspart (Insulin Aspart 100 Units/Ml 3 Ml Pen) 0 units SC ACHS [facility] Stop: 09/19/20 11:29 Last Admin: 08/26/20 22:49 Dose: Not Given Documented by: Insulin Glargine (Insulin Glargine Solostar 100 Units/Ml 3 Ml Pen) 15 units SC DAILY [facility] Stop: 09/15/20 11:59 Last Admin: 08/26/20 08:58 Dose: 15 units Documented by: Isosorbide Mononitrate (Isosorbide [place] Extended Rel 60 Mg Tabcr) 60 mg PO QAM [facility] Stop: 09/15/20 10:36 Last Admin: 08/18/20 08:07 Dose: 60 mg Documented by: Magnesium Hydroxide (Magnesium Hydroxide Susp 30 Ml Udc) 30 ml PO Q12H PRN PRN Reason: Constipation Stop: 09/15/20 07:34 Last Admin: 08/24/20 14:30 Dose: 30 ml Documented by: Magnesium Oxide (Magnesium Oxide 400 Mg Tab) 400 mg PO DAILY [facility] Stop: 09/15/20 10:36 Last Admin: 08/26/20 08:57 Dose: 400 mg Documented by: Metoprolol Succinate (Metoprolol Succ 25mg Ext Rel Tab) 12.5 mg PO QAM [facility] Stop: 09/26/20 08:59 Miconazole Nitrate (Miconazole Nitrate Powder 43 Gm) 1 appln EXT BID [facility] Stop: 09/15/20 12:53 Last Admin: 08/26/20 20:49 Dose: 1 appln Documented by: Miscellaneous (Carbohydrates For Hypoglycemia ) 15 - 30 gm PO UD PRN PRN Reason: Hypoglycemia Protocol Stop: 09/15/20 10:36 Nitroglycerin (Nitroglycerin Sl 0.4 Mg/Tab Tab) 0.4 mg SL UD PRN PRN Reason: Chest Pain Stop: 09/15/20 10:36 Pantoprazole Sodium (Pantoprazole 40 Mg Tab) 40 mg PO QAM [facility] Stop: 09/20/20 08:59 Last Admin: 08/26/20 08:57 Dose: 40 mg Documented by: Polyethylene Glycol (Polyethylene (Miralax) 17 Gm Pack) 17 gm PO DAILY [facility] Stop: 09/18/20 08:59 Last Admin: 08/26/20 09:12 Dose: 17 gm Documented by: Potassium Chloride (Potassium Chloride Crtab 20 Meq Tabcr) 20 meq PO TID [facility] Stop: 09/22/20 13:59 Last Admin: 08/26/20 20:49 Dose: 20 meq Documented by: Torsemide (Torsemide 20 Mg Tab) 40 mg PO BID [facility] Stop: 09/25/20 20:59 Last Admin: 08/26/20 20:49 Dose: 40 mg Documented by: Vitamin D (Cholecalciferol 1,000 Units 25 Mcg Tab) 5,000 units PO Q2D [facility] Stop: 09/16/20 08:59 Last Admin: 08/25/20 08:45 Dose: 5,000 units Documented by: Warfarin Sodium (Warfarin Sod 1.25 Mg Tab) 1.25 mg PO DAILY@1600 [facility] Stop: 09/15/20 15:59 Last Admin: 08/17/20 17:17 Dose: 1.25 mg Documented by:
[2020-08-27 07:46] LABS: BUN Creatinine Ratio 24.3 (10-20); Calcium 8.4 mg/dl (8.5-10.1); Creatinine Clr Calc Pharmacy 42.2 ml/min; Est GFR (African American) 41.2 ml/min; Est GFR (Non-African American) 35.6 ml/min; Potassium 4.1 mmol/L (3.5-5.1)
[2020-08-27] MEDS: POLYETHYLENE (MIRALAX) 17 GM PACK PO SCH (08:01)
[2020-08-27] MEDS: POTASSIUM CHLORIDE CRTAB 20 MEQ TABCR PO SCH ×3 (08:02→21:14)
[2020-08-27] MEDS: DOCUSATE SODIUM 100 MG CAP PO SCH ×2 (08:02→21:13)
[2020-08-27] MEDS: TORSEMIDE 20 MG TAB PO SCH ×2 (08:04→21:14)
[2020-08-27] MEDS: ASCORBIC ACID 500 MG TAB PO SCH ×2 (08:04→21:14)
[2020-08-27] MEDS: DULoxetine HCL 20 MG CAP PO SCH (08:04)
[2020-08-27] MEDS: MAGNESIUM OXIDE 400 MG TAB PO SCH (08:04)
[2020-08-27] MEDS: PANTOprazole 40 MG TAB PO SCH (08:04)
[2020-08-27] MEDS: CHOLECALCIFEROL 1,000 UNITS 25 MCG TAB PO SCH (08:05)
[2020-08-27] MEDS: METOPROLOL SUCC 25MG EXT REL TAB PO SCH (08:05)
[2020-08-27] MEDS: MICONAZOLE NITRATE POWDER 43 GM EXT SCH ×2 (08:06→21:14)
[2020-08-27] MEDS: INSULIN GLARGINE SOLOSTAR 100 UNITS/ML 3 ML PEN SC SCH (08:06)
[2020-08-27] MEDS: INSULIN ASPART 100 UNITS/ML 3 ML PEN SC SCH ×4 (08:06→21:14)
--- NOTE | 2020-08-27 10:24 | Cardiology Progress Note ---
Date of Service August 27, 2020 Assessment & Plan (1) Valvular heart disease: (2) Acute on chronic systolic heart failure: (3) Cardiorenal syndrome with renal failure: (4) Acute and chronic respiratory failure with hypoxia: The patient is doing well clinically. We discontinued his dobutamine yesterday. He received his first dose of long-acting metoprolol this morning. At this point I will discontinue his Matthews catheter. Potentially he could be discharged tomorrow. Admission and Anticipated Discharge Date Admission Date: August 16, 2020 Subjective The patient is resting comfortably and has no complaints. Review of Systems Review of Systems: All systems reviewed & are unremarkable except as noted in Subjective Physical Exam Physical Exam: General: no acute distress and stated age Head: normocephalic, no masses, lesions, tenderness or abnormalities Eyes: conjunctiva are pink and non-injected, sclera clear Neck: supple, no adenopathy, no bruits, normal jugular venous pulse, no hepatojugular reflux Chest: normal shape and normal respiratory effort Lungs: clear to auscultation and percussion Cardiac Exam: - regular rate & rhythm, no murmurs gallops or rubs - normal S1, normal S2 Pulses: 2(+) throughout Abdomen: abdomen soft, non-tender, no abnormal masses and no hepatosplenomegaly Musculoskeletal: no gait disturbance, no joint inflammation, no deforming arthritis Extremities: no edema and no cyanosis Neuro: grossly normal exam Results & Data ([facility]) Vital Signs (Past 12 Hours) Vital Signs Temp Pulse Resp BP Pulse Ox 08/27/20 07:42 36.4 C L 86 20 109/69 94 08/27/20 03:45 36.6 C 86 18 110/68 95 08/26/20 23:35 36.3 C L 88 20 117/72 95 Laboratory Results Laboratory Results - last 24 hr 08/26/20 08/26/20 08/26/20 11:23 16:20 20:21 Sodium Potassium Chloride Carbon Dioxide Anion Gap BUN Creatinine Est Cr Clr Drug Dosing Est GFR ( Amer) Est GFR (Non-Af Amer) BUN/Creatinine Ratio Glucose POC Glucose 164 H 116 H 132 H Calcium 08/27/20 08/27/20 07:01 07:02 Sodium 136 Potassium 4.1 Chloride 93 L Carbon Dioxide 40 H Anion Gap 3.0 BUN 45 H Creatinine 1.84 H Est Cr Clr Drug Dosing 42.2 Est GFR ( Amer) 41.2 Est GFR (Non-Af Amer) 35.6 BUN/Creatinine Ratio 24.3 H Glucose 132 H POC Glucose 161 H Calcium 8.4 L Medications Administered Current Inpatient Medications Acetaminophen (Acetaminophen 325 Mg Tab) 650 mg PO Q4H PRN PRN Reason: Moderate Pain Stop: 09/15/20 10:36 Last Admin: 08/18/20 16:48 Dose: 650 mg Documented by: Al Hydrox/Mg Hydrox/Simethicone (Aluminum/Magnesium Susp 30 Ml Udc) 15 ml PO Q4H PRN PRN Reason: Dyspepsia Stop: 09/15/20 07:34 Last Admin: 08/24/20 00:44 Dose: 15 ml Documented by: Albuterol (Albuterol Hfa 8 Gm Inhaler) 2 puffs INH QID PRN PRN Reason: Shortness Of Breath Or Wheezing Stop: 09/15/20 10:36 Last Admin: 08/19/20 08:35 Dose: 2 puffs Documented by: Ascorbic Acid (Ascorbic Acid 500 Mg Tab) 500 mg PO BID [facility] Stop: 09/15/20 10:36 Last Admin: 08/27/20 08:04 Dose: 500 mg Documented by: Aspirin (Aspirin 81 Mg Ectab) [facility] Stop: 09/15/20 08:59 Last Admin: 08/19/20 09:42 Dose: 81 mg Documented by: Atorvastatin Calcium (Atorvastatin 40 Mg Tab) 80 mg PO QPM [facility] Stop: 09/15/20 20:59 Last Admin: 08/18/20 20:53 Dose: 80 mg Documented by: Bisacodyl (Bisacodyl 5 Mg Tabec) 10 mg PO DAILY PRN PRN Reason: Constipation Stop: 09/17/20 13:42 Last Admin: 08/23/20 16:45 Dose: 10 mg Documented by: Clopidogrel Bisulfate (Clopidogrel Bisulfate 75 Mg Tab) 75 mg PO QAM [facility] Stop: 09/15/20 10:36 Last Admin: 08/18/20 08:07 Dose: 75 mg Documented by: Cyanocobalamin (Cyanocobalamin 1000 Mcg/Ml Vial) 1,000 mcg IM Q30D [facility] Stop: 09/19/20 08:59 Last Admin: 08/20/20 08:29 Dose: 1,000 mcg Documented by: Dextrose (Dextrose 50% 50 Ml Syringe) 25 - 50 ml IV UD PRN; Protocol PRN Reason: Hypoglycemia Protocol Stop: 09/15/20 10:36 Docusate Sodium (Docusate Sodium 100 Mg Cap) 100 mg PO BID [facility] Stop: 09/15/20 10:36 Last Admin: 08/27/20 08:02 Dose: 100 mg Documented by: Duloxetine HCl (Duloxetine Hcl 20 Mg Cap) 20 mg PO QAM [facility] Stop: 09/15/20 10:36 Last Admin: 08/27/20 08:04 Dose: 20 mg Documented by: Glucagon (Glucagon For Inj 1 Mg Vial) 1 mg SQ UD PRN; Protocol PRN Reason: Hypoglycemia Protocol Stop: 09/15/20 10:36 Glucose (Glucose 10 Tabs/Tube) 4 - 8 tabs PO UD PRN; Protocol PRN Reason: Hypoglycemia Protocol Stop: 09/15/20 10:36 Glucose (Glucose 40% Gel 15 Gm Tube) 15 - 30 gm PO UD PRN; Protocol PRN Reason: Hypoglycemia Protocol Stop: 09/15/20 10:36 Insulin Aspart (Insulin Aspart 100 Units/Ml 3 Ml Pen) 0 units SC ACHS [facility] Stop: 09/19/20 11:29 Last Admin: 08/27/20 08:06 Dose: 12 units Documented by: Insulin Glargine (Insulin Glargine Solostar 100 Units/Ml 3 Ml Pen) 15 units SC DAILY [facility] Stop: 09/15/20 11:59 Last Admin: 08/27/20 08:06 Dose: 15 units Documented by: Isosorbide Mononitrate (Isosorbide [place] Extended Rel 60 Mg Tabcr) 60 mg PO QAM [facility] Stop: 09/15/20 10:36 Last Admin: 08/18/20 08:07 Dose: 60 mg Documented by: Magnesium Hydroxide (Magnesium Hydroxide Susp 30 Ml Udc) 30 ml PO Q12H PRN PRN Reason: Constipation Stop: 09/15/20 07:34 Last Admin: 08/24/20 14:30 Dose: 30 ml Documented by: Magnesium Oxide (Magnesium Oxide 400 Mg Tab) 400 mg PO DAILY [facility] Stop: 09/15/20 10:36 Last Admin: 08/27/20 08:04 Dose: 400 mg Documented by: Metoprolol Succinate (Metoprolol Succ 25mg Ext Rel Tab) 12.5 mg PO QAM [facility] Stop: 09/26/20 08:59 Last Admin: 08/27/20 08:05 Dose: 12.5 mg Documented by: Miconazole Nitrate (Miconazole Nitrate Powder 43 Gm) 1 appln EXT BID [facility] Stop: 09/15/20 12:53 Last Admin: 08/27/20 08:06 Dose: 1 appln Documented by: Miscellaneous (Carbohydrates For Hypoglycemia ) 15 - 30 gm PO UD PRN PRN Reason: Hypoglycemia Protocol Stop: 09/15/20 10:36 Nitroglycerin (Nitroglycerin Sl 0.4 Mg/Tab Tab) 0.4 mg SL UD PRN PRN Reason: Chest Pain Stop: 09/15/20 10:36 Pantoprazole Sodium (Pantoprazole 40 Mg Tab) 40 mg PO QAM [facility] Stop: 09/20/20 08:59 Last Admin: 08/27/20 08:04 Dose: 40 mg Documented by: Polyethylene Glycol (Polyethylene (Miralax) 17 Gm Pack) 17 gm PO DAILY [facility] Stop: 09/18/20 08:59 Last Admin: 08/27/20 08:01 Dose: 17 gm Documented by: Potassium Chloride (Potassium Chloride Crtab 20 Meq Tabcr) 20 meq PO TID [facility] Stop: 09/22/20 13:59 Last Admin: 08/27/20 08:02 Dose: 20 meq Documented by: Torsemide (Torsemide 20 Mg Tab) 40 mg PO BID [facility] Stop: 09/25/20 20:59 Last Admin: 08/27/20 08:04 Dose: 40 mg Documented by: Vitamin D (Cholecalciferol 1,000 Units 25 Mcg Tab) 5,000 units PO Q2D [facility] Stop: 09/16/20 08:59 Last Admin: 08/27/20 08:05 Dose: 5,000 units Documented by: Warfarin Sodium (Warfarin Sod 1.25 Mg Tab) 1.25 mg PO DAILY@1600 [facility] Stop: 09/15/20 15:59 Last Admin: 08/17/20 17:17 Dose: 1.25 mg Documented by:
--- NOTE | 2020-08-27 14:08 | Hospitalist Progress Note ---
Date of Service August 27, 2020 Assessment & Plan (1) Acute on chronic systolic heart failure: Currently remains on 3 L of nasal cannula. Reports shortness of breath is improved. Does have persistent cough. Adequate urine output. Continue with p.o. torsemide 40 mg twice daily. Continue to monitor ins and outs along with daily weights. Continue with Imdur 60 mg daily, Toprol-XL 12.5 mg daily Notably not on GDMT including no ACEI/ARB/Entresto/aldactone 2/2 hyperkalemia in the past in setting of renal insufficiency. (2) Acute respiratory failure with hypoxemia: Improving currently. Now on 3 L of nasal cannula. (3) Cardiorenal syndrome with renal failure: Remains stable. Nephrology is on board. Continue to monitor daily BMP. Avoid any nephrotoxic agents. (4) Acute kidney injury: as above. (5) CKD (chronic kidney disease) stage 4, GFR 15-29 ml/min: Acute renal failure with CKD stage IV, possible secondary to cardiac decompensation Developed oliguric renal failure, leading to progressive volume overload, nephrology is on board. Concern for hepatorenal syndrome caused by passive liver congestion with severe decompensated CHF. Patient had adequate urine output in the last 24 hours. Matthews catheter is in place. Lasix/dobutamine has been stopped. Creatinine at 1.84 today. Continue with torsemide. (6) PAF (paroxysmal atrial fibrillation): coumadin on hold-rate is <100. Will discuss proper time to restart anticoagulation with cardiology (7) Transaminitis: Improved, likely related to passive congestion from heart failure exacerbation. (8) Valvular heart disease: Noted complex cardiac history with prosthetic aortic valve and severe MR. (9) Diabetes mellitus, type 2: Hold home insulin and utilize glargine and Novolog with carb coverage and sliding scale as needed. Currently euglycemic and at goal. Recent A1C in June 2020 was at goal 6.8. (10) DVT prophylaxis: SCDs/warfarin on hold DNR/DNI Dipso-uncertain at this time. Patient has poor prognosis and is terminally ill. Palliative discussion today with patient ultimately not desiring any further escalations of care after this admission. Admission and Anticipated Discharge Date Admission Date: August 16, 2020 Subjective Doing okay this morning. Awake and alert. Shortness of breath is improved. Currently down to 3 L of nasal cannula. Does have persistent cough. Denies any chest pain, abdominal pain or diarrhea. Further review of system is negative. Review of Systems Review of Systems: All systems reviewed & are unremarkable except as noted in HPI & below Physical Exam Physical Exam: General: A&Ox3 HENT: NCAT, MMM, EOMI Eyes: PERRLA Neck: Supple, normal range of motion CVS: normal rate and rhythm Resp: b/l decrease breath sounds Abdomen: Soft, ND/NT, +BS Extremities: No c/c/e Neuro: face symmetric, no focal deficit Skin: warm and dry, no rashes/lesions/errythema : Matthews catheter in place with clear urine output Results & Data Results & Data ([facility]) Vital Signs (Past 12 Hours) Vital Signs Temp Pulse Resp BP Pulse Ox 08/27/20 11:28 36.4 C L 83 20 111/70 98 08/27/20 07:42 36.4 C L 86 20 109/69 94 08/27/20 03:45 36.6 C 86 18 110/68 95
[2020-08-28] MEDS: POLYETHYLENE (MIRALAX) 17 GM PACK PO SCH (08:31)
[2020-08-28] MEDS: INSULIN ASPART 100 UNITS/ML 3 ML PEN SC SCH ×4 (08:32→21:40)
[2020-08-28] MEDS: INSULIN GLARGINE SOLOSTAR 100 UNITS/ML 3 ML PEN SC SCH (08:33)
[2020-08-28] MEDS: METOPROLOL SUCC 25MG EXT REL TAB PO SCH (08:34)
[2020-08-28] MEDS: MAGNESIUM OXIDE 400 MG TAB PO SCH (08:35)
[2020-08-28] MEDS: DULoxetine HCL 20 MG CAP PO SCH (08:35)
[2020-08-28] MEDS: ASCORBIC ACID 500 MG TAB PO SCH ×2 (08:36→20:59)
[2020-08-28] MEDS: PANTOprazole 40 MG TAB PO SCH (08:36)
[2020-08-28] MEDS: POTASSIUM CHLORIDE CRTAB 20 MEQ TABCR PO SCH ×3 (08:36→20:59)
[2020-08-28] MEDS: TORSEMIDE 20 MG TAB PO SCH ×2 (08:37→20:59)
[2020-08-28] MEDS: DOCUSATE SODIUM 100 MG CAP PO SCH ×2 (08:37→21:02)
[2020-08-28] MEDS: MICONAZOLE NITRATE POWDER 43 GM EXT SCH ×2 (08:38→20:59)
--- NOTE | 2020-08-28 12:11 | Cardiology Progress Note ---
Date of Service August 28, 2020 Assessment & Plan (1) Valvular heart disease: (2) Acute on chronic systolic heart failure: (3) Cardiorenal syndrome with renal failure: (4) Acute and chronic respiratory failure with hypoxia: The patient is doing well and I believe that he can be discharged per the medicine service. The patient I believe is going to a rehab hospital which I think is appropriate however, if he is going to be discharged home then we need to have early follow-up in our clinic. Basically within a week or less after discharge. If he does go to rehab hospital he should continue his current medications. Admission and Anticipated Discharge Date Admission Date: August 16, 2020 Subjective The patient is sitting in a chair and appears comfortable eating lunch. He has no complaints today. Review of Systems Review of Systems: All systems reviewed & are unremarkable except as noted in Subjective Physical Exam Physical Exam: General: no acute distress and stated age Head: normocephalic, no masses, lesions, tenderness or abnormalities Eyes: conjunctiva are pink and non-injected, sclera clear Neck: supple, no adenopathy, no bruits, normal jugular venous pulse, no hepatojugular reflux Chest: normal shape and normal respiratory effort Lungs: clear to auscultation and percussion Cardiac Exam: - regular rate & rhythm, no murmurs gallops or rubs - normal S1, normal S2 Pulses: 2(+) throughout Abdomen: abdomen soft, non-tender, no abnormal masses and no hepatosplenomegaly Musculoskeletal: no gait disturbance, no joint inflammation, no deforming arthritis Extremities: no edema and no cyanosis Neuro: grossly normal exam Results & Data ([facility]) Vital Signs (Past 12 Hours) Vital Signs Temp Pulse Resp BP BP Pulse Ox 08/28/20 11:35 36.5 C 80 20 102/64 100 08/28/20 08:00 36.5 C 86 20 125/69 98 08/28/20 04:08 36.5 C 84 14 104/67 97 Laboratory Results Laboratory Results - last 24 hr 08/27/20 08/27/20 08/28/20 16:13 20:46 07:19 POC Glucose 80 201 H 156 H 08/28/20 11:10 POC Glucose 148 H Medications Administered Current Inpatient Medications Acetaminophen (Acetaminophen 325 Mg Tab) 650 mg PO Q4H PRN PRN Reason: Moderate Pain Stop: 09/15/20 10:36 Last Admin: 08/18/20 16:48 Dose: 650 mg Documented by: Al Hydrox/Mg Hydrox/Simethicone (Aluminum/Magnesium Susp 30 Ml Udc) 15 ml PO Q4H PRN PRN Reason: Dyspepsia Stop: 09/15/20 07:34 Last Admin: 08/24/20 00:44 Dose: 15 ml Documented by: Albuterol (Albuterol Hfa 8 Gm Inhaler) 2 puffs INH QID PRN PRN Reason: Shortness Of Breath Or Wheezing Stop: 09/15/20 10:36 Last Admin: 08/19/20 08:35 Dose: 2 puffs Documented by: Ascorbic Acid (Ascorbic Acid 500 Mg Tab) 500 mg PO BID [facility] Stop: 09/15/20 10:36 Last Admin: 08/28/20 08:36 Dose: 500 mg Documented by: Aspirin (Aspirin 81 Mg Ectab) 81 mg PO QAM [facility] Stop: 09/15/20 08:59 Last Admin: 08/19/20 09:42 Dose: 81 mg Documented by: Atorvastatin Calcium (Atorvastatin 40 Mg Tab) 80 mg PO QPM [facility] Stop: 09/15/20 20:59 Last Admin: 08/18/20 20:53 Dose: 80 mg Documented by: Bisacodyl (Bisacodyl 5 Mg Tabec) 10 mg PO DAILY PRN PRN Reason: Constipation Stop: 09/17/20 13:42 Last Admin: 08/23/20 16:45 Dose: 10 mg Documented by: Clopidogrel Bisulfate (Clopidogrel Bisulfate 75 Mg Tab) 75 mg PO QAM [facility] Stop: 09/15/20 10:36 Last Admin: 08/18/20 08:07 Dose: 75 mg Documented by: Cyanocobalamin (Cyanocobalamin 1000 Mcg/Ml Vial) 1,000 mcg IM Q30D [facility] Stop: 09/19/20 08:59 Last Admin: 08/20/20 08:29 Dose: 1,000 mcg Documented by: Dextrose (Dextrose 50% 50 Ml Syringe) 25 - 50 ml IV UD PRN; Protocol PRN Reason: Hypoglycemia Protocol Stop: 09/15/20 10:36 Docusate Sodium (Docusate Sodium 100 Mg Cap) 100 mg PO BID [facility] Stop: 09/15/20 10:36 Last Admin: 08/28/20 08:37 Dose: 100 mg Documented by: Duloxetine HCl (Duloxetine Hcl 20 Mg Cap) 20 mg PO QAM [facility] Stop: 09/15/20 10:36 Last Admin: 08/28/20 08:35 Dose: 20 mg Documented by: Glucagon (Glucagon For Inj 1 Mg Vial) 1 mg SQ UD PRN; Protocol PRN Reason: Hypoglycemia Protocol Stop: 09/15/20 10:36 Glucose (Glucose 10 Tabs/Tube) 4 - 8 tabs PO UD PRN; Protocol PRN Reason: Hypoglycemia Protocol Stop: 09/15/20 10:36 Glucose (Glucose 40% Gel 15 Gm Tube) 15 - 30 gm PO UD PRN; Protocol PRN Reason: Hypoglycemia Protocol Stop: 09/15/20 10:36 Insulin Aspart (Insulin Aspart 100 Units/Ml 3 Ml Pen) 0 units SC ACHS [facility] Stop: 09/19/20 11:29 Last Admin: 08/28/20 08:32 Dose: 21 units Documented by: Insulin Glargine (Insulin Glargine Solostar 100 Units/Ml 3 Ml Pen) 15 units SC DAILY [facility] Stop: 09/15/20 11:59 Last Admin: 08/28/20 08:33 Dose: 15 units Documented by: Isosorbide Mononitrate (Isosorbide [place] Extended Rel 60 Mg Tabcr) 60 mg PO QAM [facility] Stop: 09/15/20 10:36 Last Admin: 08/18/20 08:07 Dose: 60 mg Documented by: Magnesium Hydroxide (Magnesium Hydroxide Susp 30 Ml Udc) 30 ml PO Q12H PRN PRN Reason: Constipation Stop: 09/15/20 07:34 Last Admin: 08/24/20 14:30 Dose: 30 ml Documented by: Magnesium Oxide (Magnesium Oxide 400 Mg Tab) 400 mg PO DAILY [facility] Stop: 09/15/20 10:36 Last Admin: 08/28/20 08:35 Dose: 400 mg Documented by: Metoprolol Succinate (Metoprolol Succ 25mg Ext Rel Tab) 12.5 mg PO QAM [facility] Stop: 09/26/20 08:59 Last Admin: 08/28/20 08:34 Dose: 12.5 mg Documented by: Miconazole Nitrate (Miconazole Nitrate Powder 43 Gm) 1 appln EXT BID [facility] Stop: 09/15/20 12:53 Last Admin: 08/28/20 08:38 Dose: 1 appln Documented by: Miscellaneous (Carbohydrates For Hypoglycemia ) 15 - 30 gm PO UD PRN PRN Reason: Hypoglycemia Protocol Stop: 09/15/20 10:36 Nitroglycerin (Nitroglycerin Sl 0.4 Mg/Tab Tab) 0.4 mg SL UD PRN PRN Reason: Chest Pain Stop: 09/15/20 10:36 Pantoprazole Sodium (Pantoprazole 40 Mg Tab) 40 mg PO QAM [facility] Stop: 09/20/20 08:59 Last Admin: 08/28/20 08:36 Dose: 40 mg Documented by: Polyethylene Glycol (Polyethylene (Miralax) 17 Gm Pack) 17 gm PO DAILY [facility] Stop: 09/18/20 08:59 Last Admin: 08/28/20 08:31 Dose: 17 gm Documented by: Potassium Chloride (Potassium Chloride Crtab 20 Meq Tabcr) 20 meq PO TID [facility] Stop: 09/22/20 13:59 Last Admin: 08/28/20 08:36 Dose: 20 meq Documented by: Torsemide (Torsemide 20 Mg Tab) 40 mg PO BID [facility] Stop: 09/25/20 20:59 Last Admin: 08/28/20 08:37 Dose: 40 mg Documented by: Vitamin D (Cholecalciferol 1,000 Units 25 Mcg Tab) 5,000 units PO Q2D [facility] Stop: 09/16/20 08:59 Last Admin: 08/27/20 08:05 Dose: 5,000 units Documented by: Warfarin Sodium (Warfarin Sod 1.25 Mg Tab) 1.25 mg PO DAILY@1600 [facility] Stop: 09/15/20 15:59 Last Admin: 08/17/20 17:17 Dose: 1.25 mg Documented by:
--- NOTE | 2020-08-28 13:37 | Hospitalist Progress Note ---
Date of Service August 28, 2020 Assessment & Plan (1) Acute on chronic systolic heart failure: Currently remains on 3 L of nasal cannula. Reports shortness of breath is improved. Adequate urine output in the last 24 hours. Continue with p.o. torsemide 40 mg twice daily. Continue to monitor ins and outs along with daily weights. Continue with Imdur 60 mg daily, Toprol-XL 12.5 mg daily Notably not on GDMT including no ACEI/ARB/Entresto/aldactone 2/2 hyperkalemia in the past in setting of renal insufficiency. (2) Acute respiratory failure with hypoxemia: Improving currently. Now on 3 L of nasal cannula. (3) Cardiorenal syndrome with renal failure: Remains stable. Nephrology is on board. Continue to monitor daily BMP. Avoid any nephrotoxic agents. (4) Acute kidney injury: as above. (5) CKD (chronic kidney disease) stage 4, GFR 15-29 ml/min: Acute renal failure with CKD stage IV, possible secondary to cardiac decompensation Developed oliguric renal failure, leading to progressive volume overload, nephrology is on board. Concern for hepatorenal syndrome caused by passive liver congestion with severe decompensated CHF. Patient had adequate urine output in the last 24 hours. Matthews catheter is in place. Lasix/dobutamine has been stopped. Creatinine is improving. Continue with torsemide. (6) PAF (paroxysmal atrial fibrillation): coumadin on hold-rate is <100. Will discuss proper time to restart anticoagulation with cardiology (7) Transaminitis: Improved, likely related to passive congestion from heart failure exacerbation. (8) Valvular heart disease: Noted complex cardiac history with prosthetic aortic valve and severe MR. (9) Diabetes mellitus, type 2: Hold home insulin and utilize glargine and Novolog with carb coverage and sliding scale as needed. Currently euglycemic and at goal. Recent A1C in June 2020 was at goal 6.8. (10) DVT prophylaxis: SCDs/warfarin on hold DNR/DNI Dipso-uncertain at this time. Patient has poor prognosis and is terminally ill. Palliative discussion today with patient ultimately not desiring any further escalations of care after this admission. Admission and Anticipated Discharge Date Admission Date: August 16, 2020 Subjective Patient sitting in the recliner today. Denies any significant shortness of breath or any cough. Denies any chest pain, palpitations or any dizziness. Currently on 3 L of nasal cannula. Review of Systems Review of Systems: All systems reviewed & are unremarkable except as noted in HPI & below Physical Exam Physical Exam: General: A&Ox3 HENT: NCAT, MMM, EOMI Eyes: PERRLA Neck: Supple, normal range of motion CVS: normal rate and rhythm Resp: b/l decrease breath sounds Abdomen: Soft, ND/NT, +BS Extremities: No c/c/e Neuro: face symmetric, no focal deficit Skin: warm and dry, no rashes/lesions/errythema : Matthews catheter in place with clear urine output Results & Data Results & Data ([facility]) Vital Signs (Past 12 Hours) Vital Signs Temp Pulse Resp BP BP Pulse Ox 08/28/20 11:35 36.5 C 80 20 102/64 100 08/28/20 08:00 36.5 C 86 20 125/69 98 08/28/20 04:08 36.5 C 84 14 104/67 97
[2020-08-29 07:41] LABS: Basophils # (auto) 0.01 K/uL (0-0.2); Basophils % (auto) 0.1 %; Eosinophils # (auto) 0.32 K/uL (0-0.5); Eosinophils % (auto) 4.2 %; Hematocrit (blood only) 29.7 % (42-52); Hemoglobin 9.2 g/dL (14.0-18.0); Immature Granulocytes # (auto) 0.03 K/uL (0.00-0.02); Immature Granulocytes % (auto) 0.4 %; Lymphocytes # (auto) 1.05 K/uL (1.2-3.4); Lymphocytes % (auto) 13.7 %; Mean Corpuscular Hemoglobin 29.2 pg (25-34); Mean Corpuscular Volume 94.3 fL (80-100); Mean Platelet Volume 10.7 fL (7.4-10.4); Monocytes # (auto) 0.72 K/uL (0.11-0.59); Monocytes % (auto) 9.4 %; Neutrophils # (auto) 5.54 K/uL (1.4-6.5); Neutrophils % (auto) 72.2 %; Platelet Count 294 K/uL (130-400); RDW Coefficient of Variation 16.4 % (11.5-14.5); RDW Standard Deviation 56.3 fL (36.4-46.3); Red Blood Count 3.15 M/uL (4.7-6.1); White Blood Count 7.67 K/uL (4.8-10.8)
[2020-08-29 08:17] LABS: Calcium 8.8 mg/dl (8.5-10.1); Creatinine Clr Calc Pharmacy 40.9 ml/min; Est GFR (African American) 39.2 ml/min; Est GFR (Non-African American) 33.8 ml/min; Potassium 4.3 mmol/L (3.5-5.1)
[2020-08-29] MEDS: POTASSIUM CHLORIDE CRTAB 20 MEQ TABCR PO SCH ×2 (08:23→20:14)
[2020-08-29] MEDS: MICONAZOLE NITRATE POWDER 43 GM EXT SCH ×2 (08:24→20:14)
[2020-08-29] MEDS: MAGNESIUM OXIDE 400 MG TAB PO SCH (08:24)
[2020-08-29] MEDS: TORSEMIDE 20 MG TAB PO SCH ×2 (08:24→20:14)
[2020-08-29] MEDS: DULoxetine HCL 20 MG CAP PO SCH (08:24)
[2020-08-29] MEDS: PANTOprazole 40 MG TAB PO SCH (08:24)
[2020-08-29] MEDS: METOPROLOL SUCC 25MG EXT REL TAB PO SCH (08:24)
[2020-08-29] MEDS: ASCORBIC ACID 500 MG TAB PO SCH ×2 (08:24→20:14)
[2020-08-29] MEDS: CHOLECALCIFEROL 1,000 UNITS 25 MCG TAB PO SCH (08:24)
[2020-08-29] MEDS: INSULIN GLARGINE SOLOSTAR 100 UNITS/ML 3 ML PEN SC SCH (08:25)
[2020-08-29] MEDS: INSULIN ASPART 100 UNITS/ML 3 ML PEN SC SCH ×4 (08:27→20:57)
[2020-08-29] MEDS: POLYETHYLENE (MIRALAX) 17 GM PACK PO SCH (08:38)
[2020-08-29] MEDS: DOCUSATE SODIUM 100 MG CAP PO SCH ×2 (08:38→20:14)
--- NOTE | 2020-08-29 10:21 | Nephrology Progress Note ---
Date of Service August 29, 2020 Assessment & Plan Admission and Anticipated Discharge Date Admission Date: August 16, 2020 Subjective NEPHROLOGY PROGRESS NOTE SUBJECTIVE: The patient appears to be better . waiting for placement . No new issues OBJECTIVE: HEENT: Mucous membranes moist. NECK: Supple. No jugular venous distention. CHEST: Bilaterally decreased breath sounds. CARDIOVASCULAR: S1, S2 irregular. Soft systolic murmur heard. ABDOMEN: Soft, nontender. EXTREMITIES: No edema. LABORATORY TEST: Creat and K slowly rising ASSESSMENT AND PLAN: A 74-year-old male with complicated cardiac history and has been labeled essentially as end-stage cardiac disease at this point by cardiology. He was admitted with congestive heart failure. He has known chronic kidney disease at baseline, but in the last few days, it has gotten somewhat worse. Acute renal failure: The acute component is probably related with a cardiorenal situation. However, creatinine has remained fairly stable now for the last 5 days despite diuretics at just over 2. His urine output was quite good, with dobutamine and Lasix drip. Low K and will correct RECOMMENDATIONS: 1. Lower K.cl to 20 bid. 2 May have to consider lowering the demadex dose very slightly--not absolute though as more improtant to keep his breathing stable. Defer to cards. Results & Data ([facility]) Vital Signs (Past 12 Hours) Vital Signs Temp Pulse Resp BP Pulse Ox 08/29/20 07:46 36.4 C L 83 18 111/71 100 08/29/20 04:16 36.5 C 85 18 112/73 96 08/29/20 00:36 36.8 C 79 18 107/72 98
--- NOTE | 2020-08-29 11:07 | Cardiology Progress Note ---
Date of Service August 29, 2020 Assessment & Plan (1) Valvular heart disease: (2) Acute on chronic systolic heart failure: (3) Cardiorenal syndrome with renal failure: (4) Acute and chronic respiratory failure with hypoxia: I would continue the patient's current medications. You may want to consider a fluid restriction as patient's sodium is declining. He is scheduled to be transferred to a rehab hospital on Thursday. Admission and Anticipated Discharge Date Admission Date: August 16, 2020 Subjective The patient has no new cardiac complaints today. He is currently waiting to be transferred to a rehab hospital. Review of Systems Review of Systems: All systems reviewed & are unremarkable except as noted in Subjective Physical Exam Physical Exam: General: no acute distress and stated age Head: normocephalic, no masses, lesions, tenderness or abnormalities Eyes: conjunctiva are pink and non-injected, sclera clear Neck: supple, no adenopathy, no bruits, normal jugular venous pulse, no hepatoju gular reflux Chest: normal shape and normal respiratory effort Lungs: clear to auscultation and percussion Cardiac Exam: - regular rate & rhythm, no murmurs gallops or rubs - normal S1, normal S2 Pulses: 2(+) throughout Abdomen: abdomen soft, non-tender, no abnormal masses and no hepatosplenomegaly Musculoskeletal: no gait disturbance, no joint inflammation, no deforming arthritis Extremities: no edema and no cyanosis Neuro: grossly normal exam Results & Data ([facility]) Vital Signs (Past 12 Hours) Vital Signs Temp Pulse Resp BP Pulse Ox 08/29/20 07:46 36.4 C L 83 18 111/71 100 08/29/20 04:16 36.5 C 85 18 112/73 96 08/29/20 00:36 36.8 C 79 18 107/72 98 Laboratory Results Laboratory Results - last 24 hr 08/28/20 08/28/20 08/28/20 11:10 16:26 20:47 WBC RBC Hgb Hct MCV MCH MCHC RDW Std Deviation RDW Coeff of Rosio Plt Count MPV Immature Gran % (Auto) Neut % (Auto) Lymph % (Auto) [place] % (Auto) Eos % (Auto) Baso % (Auto) Neut # (Auto) Lymph # (Auto) [place] # (Auto) Eos # (Auto) Baso # (Auto) Immature Gran # (Auto) Sodium Potassium Chloride Carbon Dioxide Anion Gap BUN Creatinine Est Cr Clr Drug Dosing Est GFR ( Amer) Est GFR (Non-Af Amer) BUN/Creatinine Ratio Glucose POC Glucose 148 H 86 142 H Calcium 08/29/20 08/29/20 08/29/20 07:20 07:20 07:33 WBC 7.67 RBC 3.15 L Hgb 9.2 L Hct 29.7 L MCV 94.3 MCH 29.2 MCHC 31.0 L RDW Std Deviation 56.3 H RDW Coeff of Rosio 16.4 H Plt Count 294 MPV 10.7 H Immature Gran % (Auto) 0.4 Neut % (Auto) 72.2 Lymph % (Auto) 13.7 [place] % (Auto) 9.4 Eos % (Auto) 4.2 Baso % (Auto) 0.1 Neut # (Auto) 5.54 Lymph # (Auto) 1.05 L [place] # (Auto) 0.72 H Eos # (Auto) 0.32 Baso # (Auto) 0.01 Immature Gran # (Auto) 0.03 H Sodium 133 L Potassium 4.3 Chloride 91 L Carbon Dioxide 38 H Anion Gap 4.0 BUN 48 H Creatinine 1.92 H Est Cr Clr Drug Dosing 40.9 Est GFR ( Amer) 39.2 Est GFR (Non-Af Amer) 33.8 BUN/Creatinine Ratio 25.0 H Glucose 138 H POC Glucose 161 H Calcium 8.8 Medications Administered Current Inpatient Medications Acetaminophen (Acetaminophen 325 Mg Tab) 650 mg PO Q4H PRN PRN Reason: Moderate Pain Stop: 09/15/20 10:36 Last Admin: 08/18/20 16:48 Dose: 650 mg Documented by: Al Hydrox/Mg Hydrox/Simethicone (Aluminum/Magnesium Susp 30 Ml Udc) 15 ml PO Q4H PRN PRN Reason: Dyspepsia Stop: 09/15/20 07:34 Last Admin: 08/24/20 00:44 Dose: 15 ml Documented by: Albuterol (Albuterol Hfa 8 Gm Inhaler) 2 puffs INH QID PRN PRN Reason: Shortness Of Breath Or Wheezing Stop: 09/15/20 10:36 Last Admin: 08/19/20 08:35 Dose: 2 puffs Documented by: Ascorbic Acid (Ascorbic Acid 500 Mg Tab) 500 mg PO BID [facility] Stop: 09/15/20 10:36 Last Admin: 08/29/20 08:24 Dose: 500 mg Documented by: Aspirin (Aspirin 81 Mg Ectab) 81 mg PO QAM [facility] Stop: 09/15/20 08:59 Last Admin: 08/19/20 09:42 Dose: 81 mg Documented by: Atorvastatin Calcium (Atorvastatin 40 Mg Tab) 80 mg PO QPM [facility] Stop: 09/15/20 20:59 Last Admin: 08/18/20 20:53 Dose: 80 mg Documented by: Bisacodyl (Bisacodyl 5 Mg Tabec) 10 mg PO DAILY PRN PRN Reason: Constipation Stop: 09/17/20 13:42 Last Admin: 08/23/20 16:45 Dose: 10 mg Documented by: Clopidogrel Bisulfate (Clopidogrel Bisulfate 75 Mg Tab) [facility] Stop: 09/15/20 10:36 Last Admin: 08/18/20 08:07 Dose: 75 mg Documented by: Cyanocobalamin (Cyanocobalamin 1000 Mcg/Ml Vial) 1,000 mcg IM Q30D [facility] Stop: 09/19/20 08:59 Last Admin: 08/20/20 08:29 Dose: 1,000 mcg Documented by: Dextrose (Dextrose 50% 50 Ml Syringe) 25 - 50 ml IV UD PRN; Protocol PRN Reason: Hypoglycemia Protocol Stop: 09/15/20 10:36 Docusate Sodium (Docusate Sodium 100 Mg Cap) 100 mg PO BID [facility] Stop: 09/15/20 10:36 Last Admin: 08/29/20 08:38 Dose: 100 mg Documented by: Duloxetine HCl (Duloxetine Hcl 20 Mg Cap) 20 mg PO [facility] Stop: 09/15/20 10:36 Last Admin: 08/29/20 08:24 Dose: 20 mg Documented by: Glucagon (Glucagon For Inj 1 Mg Vial) 1 mg SQ UD PRN; Protocol PRN Reason: Hypoglycemia Protocol Stop: 09/15/20 10:36 Glucose (Glucose 10 Tabs/Tube) 4 - 8 tabs PO UD PRN; Protocol PRN Reason: Hypoglycemia Protocol Stop: 09/15/20 10:36 Glucose (Glucose 40% Gel 15 Gm Tube) 15 - 30 gm PO UD PRN; Protocol PRN Reason: Hypoglycemia Protocol Stop: 09/15/20 10:36 Insulin Aspart (Insulin Aspart 100 Units/Ml 3 Ml Pen) 0 units SC ACHS [facility] Stop: 09/19/20 11:29 Last Admin: 08/29/20 08:27 Dose: 6 units Documented by: Insulin Glargine (Insulin Glargine Solostar 100 Units/Ml 3 Ml Pen) 15 units SC DAILY [facility] Stop: 09/15/20 11:59 Last Admin: 08/29/20 08:25 Dose: 15 units Documented by: Isosorbide Mononitrate (Isosorbide [place] Extended Rel 60 Mg Tabcr) 60 mg PO QAM [facility] Stop: 09/15/20 10:36 Last Admin: 08/18/20 08:07 Dose: 60 mg Documented by: Magnesium Hydroxide (Magnesium Hydroxide Susp 30 Ml Udc) 30 ml PO Q12H PRN PRN Reason: Constipation Stop: 09/15/20 07:34 Last Admin: 08/24/20 14:30 Dose: 30 ml Documented by: Magnesium Oxide (Magnesium Oxide 400 Mg Tab) 400 mg PO DAILY [facility] Stop: 09/15/20 10:36 Last Admin: 08/29/20 08:24 Dose: 400 mg Documented by: Metoprolol Succinate (Metoprolol Succ 25mg Ext Rel Tab) 12.5 mg PO QAM [facility] Stop: 09/26/20 08:59 Last Admin: 08/29/20 08:24 Dose: 12.5 mg Documented by: Miconazole Nitrate (Miconazole Nitrate Powder 43 Gm) 1 appln EXT BID [facility] Stop: 09/15/20 12:53 Last Admin: 08/29/20 08:24 Dose: 1 appln Documented by: Miscellaneous (Carbohydrates For Hypoglycemia ) 15 - 30 gm PO UD PRN PRN Reason: Hypoglycemia Protocol Stop: 09/15/20 10:36 Nitroglycerin (Nitroglycerin Sl 0.4 Mg/Tab Tab) 0.4 mg SL UD PRN PRN Reason: Chest Pain Stop: 09/15/20 10:36 Pantoprazole Sodium (Pantoprazole 40 Mg Tab) 40 mg PO QAM [facility] Stop: 09/20/20 08:59 Last Admin: 08/29/20 08:24 Dose: 40 mg Documented by: Polyethylene Glycol (Polyethylene (Miralax) 17 Gm Pack) 17 gm PO DAILY [facility] Stop: 09/18/20 08:59 Last Admin: 08/29/20 08:38 Dose: 17 gm Documented by: Potassium Chloride (Potassium Chloride Crtab 20 Meq Tabcr) 20 meq PO BID [facility] Stop: 09/28/20 20:59 Torsemide (Torsemide 20 Mg Tab) 40 mg PO BID [facility] Stop: 09/25/20 20:59 Last Admin: 08/29/20 08:24 Dose: 40 mg Documented by: Vitamin D (Cholecalciferol 1,000 Units 25 Mcg Tab) 5,000 units PO Q2D [facility] Stop: 09/16/20 08:59 Last Admin: 08/29/20 08:24 Dose: 5,000 units Documented by: Warfarin Sodium (Warfarin Sod 1.25 Mg Tab) 1.25 mg PO DAILY@1600 [facility] Stop: 09/15/20 15:59 Last Admin: 08/17/20 17:17 Dose: 1.25 mg Documented by:
--- NOTE | 2020-08-29 11:43 | Hospitalist Progress Note ---
Date of Service August 29, 2020 Assessment & Plan (1) Acute on chronic systolic heart failure: Currently remains on 3 L of nasal cannula. Wean oxygen as tolerated Continue with p.o. torsemide 40 mg twice daily. Continue with Imdur 60 mg daily, Toprol-XL 12.5 mg daily Notably not on GDMT including no ACEI/ARB/Entresto/aldactone 2/2 hyperkalemia in the past in setting of renal insufficiency. Fluid restriction Cardiology recommendation appreciated Continue to monitor fluid intake and output as well as daily weights (2) Acute respiratory failure with hypoxemia: On 3 L/min of nasal oxygen Wean oxygen as tolerated (3) Cardiorenal syndrome with renal failure: (4) Acute kidney injury: (5) CKD (chronic kidney disease) stage 4, GFR 15-29 ml/min: Acute renal failure with CKD stage IV, possible secondary to cardiac decompensation Developed oliguric renal failure, leading to progressive volume overload. Concern for hepatorenal syndrome caused by passive liver congestion with severe decompensated CHF. Lasix/dobutamine has been stopped. Continue with torsemide. 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 Discuss with Cardiology tomorrow (7) Transaminitis: Improved, likely related to passive congestion from heart failure exacerbation. (8) Valvular heart disease: Noted complex cardiac history with prosthetic aortic valve and severe MR. (9) Diabetes mellitus, type 2: Hold home insulin Insulin glargine and Novolog with carb coverage and sliding scale as needed. Recent A1C in June 2020 was at goal 6.8. (10) DVT prophylaxis: SCDs/warfarin on hold DNR/DNI Dipso-Possible discharge to SNF on thursday Admission and Anticipated Discharge Date Admission Date: August 16, 2020 Subjective 74 yo M with PMHx significant for ischemic cardiomyopathy, CAD with history of CABG x1 and angioplasty, biventricular AICD in place, chronic HFrEF with diastolic dysfunction, history of aortic valve and mitral valve replacements, PAF anticoagulated on warfarin, HTN, HLD, OBED on CPAP, insulin-dependent T2DM, CKD stage IIIb4, depression, GERD who presents to ED secondary to shortness of breath. Managed for acute hypoxic respiratory failure, acute on chronic systolic heart failure, JUAN on CKD 4. Patient seen and examined this morning. Denies any new complaints. Reports numbness shortness of breath with activity Review of Systems Review of Systems: All systems reviewed & are unremarkable except as noted in Subjective Physical Exam Constitutional: + well hydrated and + obese; no acute distress Eyes: PERRL, conjunctivae normal, anicteric sclerae ENMT: external ear and nose normal, oropharynx normal Respiratory: normal respiratory effort, lungs clear to auscultation Cardiovascular: Rate/Rhythm: regular rate and regular rhythm S1 S2 Gastrointestinal (Abdomen): normal bowel sounds, soft, nontender, no hepatosplenomegaly Musculoskeletal: no cyanosis or clubbing, extremities motor strength 5/5 Neurologic: PERRL, EOMI, accommodation nl, no face palsy, no dysarthria Psychiatric: A+Ox3, euthymic affect Results & Data Results & Data ([facility]) Vital Signs (Past 12 Hours) Vital Signs Temp Pulse Pulse Resp BP Pulse Ox 08/29/20 11:37 36.7 C 98 H 18 98 08/29/20 08:00 85 08/29/20 07:46 36.4 C L 83 18 111/71 100 08/29/20 04:16 36.5 C 85 18 112/73 96 08/29/20 00:36 36.8 C 79 18 107/72 98 Laboratory Results Abnormal lab results 08/28/20 08/29/20 08/29/20 Range/Units 20:47 07:20 07:20 RBC 3.15 L (4.7-6.1) M/uL Hgb 9.2 L (14.0-18.0) g/dL Hct 29.7 L (42-52) % MCHC 31.0 L (32-36) g/dL RDW Std Deviation 56.3 H (36.4-46.3) fL RDW Coeff of Rosio 16.4 H (11.5-14.5) % MPV 10.7 H (7.4-10.4) fL Lymph # (Auto) 1.05 L (1.2-3.4) K/uL [place] # (Auto) 0.72 H (0.11-0.59) K/uL Immature Gran # (Auto) 0.03 H (0.00-0.02) K/uL Sodium 133 L (136-145) mmol/L Chloride 91 L (98-107) mmol/L Carbon Dioxide 38 H (21-32) mmol/L BUN 48 H (7-18) mg/dl Creatinine 1.92 H (0.6-1.4) mg/dl BUN/Creatinine Ratio 25.0 H (10-20) Glucose 138 H (70-99) mg/dl POC Glucose 142 H (70-99) mg/dl 08/29/20 08/29/20 Range/Units 07:33 11:43 RBC (4.7-6.1) M/uL Hgb (14.0-18.0) g/dL Hct (42-52) % MCHC (32-36) g/dL RDW Std Deviation (36.4-46.3) fL RDW Coeff of Rosio (11.5-14.5) % MPV (7.4-10.4) fL Lymph # (Auto) (1.2-3.4) K/uL [place] # (Auto) (0.11-0.59) K/uL Immature Gran # (Auto) (0.00-0.02) K/uL Sodium (136-145) mmol/L Chloride (98-107) mmol/L Carbon Dioxide (21-32) mmol/L BUN (7-18) mg/dl Creatinine (0.6-1.4) mg/dl BUN/Creatinine Ratio (10-20) Glucose (70-99) mg/dl POC Glucose 161 H 139 H (70-99) mg/dl
[2020-08-30] MEDS: ASCORBIC ACID 500 MG TAB PO SCH ×2 (08:06→21:02)
[2020-08-30] MEDS: TORSEMIDE 20 MG TAB PO SCH (08:06)
[2020-08-30] MEDS: POTASSIUM CHLORIDE CRTAB 20 MEQ TABCR PO SCH (08:07)
[2020-08-30] MEDS: DULoxetine HCL 20 MG CAP PO SCH (08:07)
[2020-08-30] MEDS: METOPROLOL SUCC 25MG EXT REL TAB PO SCH (08:07)
[2020-08-30] MEDS: MAGNESIUM OXIDE 400 MG TAB PO SCH (08:07)
[2020-08-30] MEDS: MICONAZOLE NITRATE POWDER 43 GM EXT SCH ×2 (08:07→21:02)
[2020-08-30] MEDS: PANTOprazole 40 MG TAB PO SCH (08:07)
[2020-08-30] MEDS: INSULIN ASPART 100 UNITS/ML 3 ML PEN SC SCH ×4 (08:08→20:57)
[2020-08-30] MEDS: INSULIN GLARGINE SOLOSTAR 100 UNITS/ML 3 ML PEN SC SCH (08:08)
[2020-08-30] MEDS: POLYETHYLENE (MIRALAX) 17 GM PACK PO SCH (08:11)
[2020-08-30] MEDS: ACETAMINOPHEN 325 MG TAB PO PRN (08:11)
[2020-08-30] MEDS: DOCUSATE SODIUM 100 MG CAP PO SCH ×2 (08:11→21:02)
[2020-08-30 08:31] LABS: INR 1.3 (0.9-1.1); Prothrombin Time 12.7 Seconds (9.0-12.0)
[2020-08-30 08:51] LABS: Albumin Level 2.6 gm/dl (3.4-5.0); BUN Creatinine Ratio 20.8 (10-20); Bilirubin Direct 0.4 mg/dl (0-0.2); Calcium 8.7 mg/dl (8.5-10.1); Creatinine Clr Calc Pharmacy 37.3 ml/min; Est GFR (African American) 34.9 ml/min; Est GFR (Non-African American) 30.1 ml/min; Magnesium 2.2 mg/dl (1.8-2.4); Potassium 4.6 mmol/L (3.5-5.1)
[2020-08-30 08:54] LABS: Bilirubin,Total 0.9 mg/dl (0.2-1); Phosphorus 3.6 mg/dl (2.5-4.9); Total Protein 6.8 gm/dl (6.4-8.2)
--- NOTE | 2020-08-30 11:18 | Nephrology Progress Note ---
Date of Service August 30, 2020 Assessment & Plan Admission and Anticipated Discharge Date Admission Date: August 16, 2020 Subjective SUBJECTIVE: The patient appears to be better . waiting for placement . No new issues OBJECTIVE: HEENT: Mucous membranes moist. NECK: Supple. No jugular venous distention. CHEST: Bilaterally decreased breath sounds. CARDIOVASCULAR: S1, S2 irregular. Soft systolic murmur heard. ABDOMEN: Soft, nontender. EXTREMITIES: No edema. LABORATORY TEST: Creat and K slowly rising ASSESSMENT AND PLAN: A 74-year-old male with complicated cardiac history and has been labeled essentially as end-stage cardiac disease at this point by cardiology. He was admitted with congestive heart failure. He has known chronic kidney disease at baseline, but in the last few days, it has gotten somewhat worse. Acute renal failure: The acute component is probably related with a cardiorenal situation. However, creatinine has remained fairly stable now for the last 5 days despite diuretics at just over 2. His urine output was quite good, with dobutamine and Lasix drip. Low K and will correct RECOMMENDATIONS: 1. Lower K.cl to 20 daily 2 given rising creat every day, May have to consider lowering the demadex dose slightly--not absolute though as more important to keep his breathing stable. Defer to cards. Results & Data ([facility]) Vital Signs (Past 12 Hours) Vital Signs Temp Pulse Pulse Resp BP BP Pulse Ox 08/30/20 08:11 37.0 C 84 19 112/72 99 08/30/20 08:00 85 08/30/20 03:10 36.5 C 83 20 109/72 100 08/29/20 23:24 36.5 C 87 20 114/74 100
--- NOTE | 2020-08-30 11:23 | Cardiology Progress Note ---
Date of Service August 30, 2020 Assessment & Plan (1) Valvular heart disease: (2) Acute on chronic systolic heart failure: (3) Cardiorenal syndrome with renal failure: (4) Acute and chronic respiratory failure with hypoxia: The patient is currently clinically stable and doing well. His creatinine has slowly started to increase and I would hold his diuretic this afternoon. He will have repeat labs in the morning before he leaves for rehab at which time a decision can be made to either restart his diuretics at a lower dose or hold them for another day. Admission and Anticipated Discharge Date Admission Date: August 16, 2020 Subjective Patient is doing well. He is anxious to be transferred to rehab. Review of Systems Review of Systems: All systems reviewed & are unremarkable except as noted in Subjective Physical Exam Physical Exam: General: no acute distress and stated age Head: normocephalic, no masses, lesions, tenderness or abnormalities Eyes: conjunctiva are pink and non-injected, sclera clear Neck: supple, no adenopathy, no bruits, normal jugular venous pulse, no hepatojugular reflux Chest: normal shape and normal respiratory effort Lungs: clear to auscultation and percussion Cardiac Exam: - regular rate & rhythm, no murmurs gallops or rubs - normal S1, normal S2 Pulses: 2(+) throughout Abdomen: abdomen soft, non-tender, no abnormal masses and no hepatosplenomegaly Musculoskeletal: no gait disturbance, no joint inflammation, no deforming arthritis Extremities: no edema and no cyanosis Neuro: grossly normal exam Results & Data ([facility]) Vital Signs (Past 12 Hours) Vital Signs Temp Pulse Pulse Resp BP BP Pulse Ox 08/30/20 08:11 37.0 C 84 19 112/72 99 08/30/20 08:00 85 08/30/20 03:10 36.5 C 83 20 109/72 100 08/29/20 23:24 36.5 C 87 20 114/74 100 Laboratory Results Laboratory Results - last 24 hr 08/29/20 08/29/20 08/29/20 11:43 16:09 20:48 PT INR Sodium Potassium Chloride Carbon Dioxide Anion Gap BUN Creatinine Est Cr Clr Drug Dosing Est GFR ( Amer) Est GFR (Non-Af Amer) BUN/Creatinine Ratio Glucose POC Glucose 139 H 147 H 83 Calcium Phosphorus Magnesium Total Bilirubin Direct Bilirubin AST ALT Alkaline Phosphatase Total Protein Albumin 08/30/20 08/30/20 08/30/20 07:16 07:51 07:51 PT 12.7 H INR 1.3 H Sodium 133 L Potassium 4.6 Chloride 91 L Carbon Dioxide 36 H Anion Gap 6.0 BUN 44 H Creatinine 2.11 H Est Cr Clr Drug Dosing 37.3 Est GFR ( Amer) 34.9 Est GFR (Non-Af Amer) 30.1 BUN/Creatinine Ratio 20.8 H Glucose 137 H POC Glucose 155 H Calcium 8.7 Phosphorus 3.6 Magnesium 2.2 Total Bilirubin 0.9 Direct Bilirubin 0.4 H AST 18 ALT 19 Alkaline Phosphatase 84 Total Protein 6.8 Albumin 2.6 L Medications Administered Current Inpatient Medications Acetaminophen (Acetaminophen 325 Mg Tab) 650 mg PO Q4H PRN PRN Reason: Moderate Pain Stop: 09/15/20 10:36 Last Admin: 08/30/20 08:11 Dose: 650 mg Documented by: Al Hydrox/Mg Hydrox/Simethicone (Aluminum/Magnesium Susp 30 Ml Udc) 15 ml PO Q4H PRN PRN Reason: Dyspepsia Stop: 09/15/20 07:34 Last Admin: 08/24/20 00:44 Dose: 15 ml Documented by: Albuterol (Albuterol Hfa 8 Gm Inhaler) 2 puffs INH QID PRN PRN Reason: Shortness Of Breath Or Wheezing Stop: 09/15/20 10:36 Last Admin: 08/19/20 08:35 Dose: 2 puffs Documented by: Ascorbic Acid (Ascorbic Acid 500 Mg Tab) 500 mg PO BID [facility] Stop: 09/15/20 10:36 Last Admin: 08/30/20 08:06 Dose: 500 mg Documented by: Aspirin (Aspirin 81 Mg Ectab) 81 mg PO QAM [facility] Stop: 09/15/20 08:59 Last Admin: 08/19/20 09:42 Dose: 81 mg Documented by: Atorvastatin Calcium (Atorvastatin 40 Mg Tab) 80 mg PO QPM [facility] Stop: 09/15/20 20:59 Last Admin: 08/18/20 20:53 Dose: 80 mg Documented by: Bisacodyl (Bisacodyl 5 Mg Tabec) 10 mg PO DAILY PRN PRN Reason: Constipation Stop: 09/17/20 13:42 Last Admin: 08/23/20 16:45 Dose: 10 mg Documented by: Clopidogrel Bisulfate (Clopidogrel Bisulfate 75 Mg Tab) 75 mg PO QAM [facility] Stop: 09/15/20 10:36 Last Admin: 08/18/20 08:07 Dose: 75 mg Documented by: Cyanocobalamin (Cyanocobalamin 1000 Mcg/Ml Vial) 1,000 mcg IM Q30D [facility] Stop: 09/19/20 08:59 Last Admin: 08/20/20 08:29 Dose: 1,000 mcg Documented by: Dextrose (Dextrose 50% 50 Ml Syringe) 25 - 50 ml IV UD PRN; Protocol PRN Reason: Hypoglycemia Protocol Stop: 09/15/20 10:36 Docusate Sodium (Docusate Sodium 100 Mg Cap) 100 mg PO BID [facility] Stop: 09/15/20 10:36 Last Admin: 08/30/20 08:11 Dose: 100 mg Documented by: Duloxetine HCl (Duloxetine Hcl 20 Mg Cap) [facility] Stop: 09/15/20 10:36 Last Admin: 08/30/20 08:07 Dose: 20 mg Documented by: Glucagon (Glucagon For Inj 1 Mg Vial) 1 mg SQ UD PRN; Protocol PRN Reason: Hypoglycemia Protocol Stop: 09/15/20 10:36 Glucose (Glucose 10 Tabs/Tube) 4 - 8 tabs PO UD PRN; Protocol PRN Reason: Hypoglycemia Protocol Stop: 09/15/20 10:36 Glucose (Glucose 40% Gel 15 Gm Tube) 15 - 30 gm PO UD PRN; Protocol PRN Reason: Hypoglycemia Protocol Stop: 09/15/20 10:36 Insulin Aspart (Insulin Aspart 100 Units/Ml 3 Ml Pen) 0 units SC ACHS [facility] Stop: 09/19/20 11:29 Last Admin: 08/30/20 08:08 Dose: 4 units Documented by: Insulin Glargine (Insulin Glargine Solostar 100 Units/Ml 3 Ml Pen) 15 units SC DAILY [facility] Stop: 09/15/20 11:59 Last Admin: 08/30/20 08:08 Dose: 15 units Documented by: Isosorbide Mononitrate (Isosorbide [place] Extended Rel 60 Mg Tabcr) 60 mg PO QAM [facility] Stop: 09/15/20 10:36 Last Admin: 08/18/20 08:07 Dose: 60 mg Documented by: Magnesium Hydroxide (Magnesium Hydroxide Susp 30 Ml Udc) 30 ml PO Q12H PRN PRN Reason: Constipation Stop: 09/15/20 07:34 Last Admin: 08/24/20 14:30 Dose: 30 ml Documented by: Magnesium Oxide (Magnesium Oxide 400 Mg Tab) 400 mg PO DAILY [facility] Stop: 09/15/20 10:36 Last Admin: 08/30/20 08:07 Dose: 400 mg Documented by: Metoprolol Succinate (Metoprolol Succ 25mg Ext Rel Tab) 12.5 mg PO QAM [facility] Stop: 09/26/20 08:59 Last Admin: 08/30/20 08:07 Dose: 12.5 mg Documented by: Miconazole Nitrate (Miconazole Nitrate Powder 43 Gm) 1 appln EXT BID [facility] Stop: 09/15/20 12:53 Last Admin: 08/30/20 08:07 Dose: 1 appln Documented by: Miscellaneous (Carbohydrates For Hypoglycemia ) 15 - 30 gm PO UD PRN PRN Reason: Hypoglycemia Protocol Stop: 09/15/20 10:36 Nitroglycerin (Nitroglycerin Sl 0.4 Mg/Tab Tab) 0.4 mg SL UD PRN PRN Reason: Chest Pain Stop: 09/15/20 10:36 Pantoprazole Sodium (Pantoprazole 40 Mg Tab) 40 mg PO QAM [facility] Stop: 09/20/20 08:59 Last Admin: 08/30/20 08:07 Dose: 40 mg Documented by: Polyethylene Glycol (Polyethylene (Miralax) 17 Gm Pack) 17 gm PO DAILY [facility] Stop: 09/18/20 08:59 Last Admin: 08/30/20 08:11 Dose: Not Given Documented by: Potassium Chloride (Potassium Chloride Crtab 20 Meq Tabcr) 20 meq PO DAILY [facility] Stop: 09/30/20 08:59 Torsemide (Torsemide 20 Mg Tab) 40 mg PO BID [facility] Stop: 09/25/20 20:59 Last Admin: 08/30/20 08:06 Dose: 40 mg Documented by: Vitamin D (Cholecalciferol 1,000 Units 25 Mcg Tab) 5,000 units PO Q2D [facility] Stop: 09/16/20 08:59 Last Admin: 08/29/20 08:24 Dose: 5,000 units Documented by: Warfarin Sodium (Warfarin Sod 1.25 Mg Tab) 1.25 mg PO DAILY@1600 [facility] Stop: 09/29/20 15:59
--- NOTE | 2020-08-30 11:52 | Hospitalist Progress Note ---
Date of Service August 30, 2020 Assessment & Plan (1) Acute on chronic systolic heart failure: Wean oxygen as tolerated Creatinine continues to increase. Currently 2.11 today. Hold torsemide for today. Follow-up creatinine and urine output by tomorrow morning. Will need to determine appropriate dose by then with cardiology Continue with Imdur 60 mg daily, Toprol-XL 12.5 mg daily Notably not on GDMT including no ACEI/ARB/Entresto/aldactone 2/2 hyperkalemia in the past in setting of renal insufficiency. Cardiology recommendation appreciated Continue to monitor fluid intake and output as well as daily weights (2) Acute respiratory failure with hypoxemia: Wean oxygen as tolerated (3) Cardiorenal syndrome with renal failure: (4) Acute kidney injury: (5) CKD (chronic kidney disease) stage 4, GFR 15-29 ml/min: Acute renal failure with CKD stage IV, possible secondary to cardiac decompensation Developed oliguric renal failure, leading to progressive volume overload. Concern for hepatorenal syndrome caused by passive liver congestion with severe decompensated CHF. Lasix/dobutamine has been stopped. Cr increasing. 2.11 today Torsemide held for now. Reassess in AM (6) PAF (paroxysmal atrial fibrillation): Per previous Provider, coumadin on hold Rate controlled LFT normal Warfarin resumed (7) Transaminitis: Improved, likely related to passive congestion from heart failure exacerbation. (8) Valvular heart disease: Noted complex cardiac history with prosthetic aortic valve and severe MR. (9) Diabetes mellitus, type 2: Hold home insulin Insulin glargine and Novolog with carb coverage and sliding scale as needed. Recent A1C in June 2020 was at goal 6.8. (10) DVT prophylaxis: Warfarin DNR/DNI Dipso-Possible discharge to SNF on thursday Admission and Anticipated Discharge Date Admission Date: August 16, 2020 Subjective 74 yo M with PMHx significant for ischemic cardiomyopathy, CAD with history of CABG x1 and angioplasty, biventricular AICD in place, chronic HFrEF with diastolic dysfunction, history of aortic valve and mitral valve replacements, PAF anticoagulated on warfarin, HTN, HLD, OBED on CPAP, insulin-dependent T2DM, CKD stage IIIb4, depression, GERD who presents to ED secondary to shortness of breath. Managed for acute hypoxic respiratory failure, acute on chronic systolic heart failure, JUAN on CKD 4. Patient seen and examined this morning. Complains of exertional dyspnea. Reports some left knee pain today, chronic Review of Systems Review of Systems: All systems reviewed & are unremarkable except as noted in Subjective Physical Exam Constitutional: + well hydrated and + obese; no acute distress Eyes: PERRL, conjunctivae normal, anicteric sclerae ENMT: external ear and nose normal, oropharynx normal Respiratory: normal respiratory effort, lungs clear to auscultation Cardiovascular: Rate/Rhythm: regular rate and regular rhythm S1-S2 Gastrointestinal (Abdomen): normal bowel sounds, soft, nontender, no hepatosplenomegaly Musculoskeletal: no cyanosis or clubbing, extremities motor strength 5/5 No tenderness swelling of left knee. No limitation in range of movement Neurologic: PERRL, EOMI, accommodation nl, no face palsy, no dysarthria Psychiatric: A+Ox3, euthymic affect Results & Data Results & Data ([facility]) Vital Signs (Past 12 Hours) Vital Signs Temp Pulse Pulse Resp BP BP Pulse Ox 08/30/20 08:11 37.0 C 84 19 112/72 99 08/30/20 08:00 85 08/30/20 03:10 36.5 C 83 20 109/72 100 Laboratory Results Abnormal lab results 08/29/20 08/30/20 08/30/20 Range/Units 16:09 07:16 07:51 PT (9.0-12.0) Seconds INR (0.9-1.1) Sodium 133 L (136-145) mmol/L Chloride 91 L (98-107) mmol/L Carbon Dioxide 36 H (21-32) mmol/L BUN 44 H (7-18) mg/dl Creatinine 2.11 H (0.6-1.4) mg/dl BUN/Creatinine Ratio 20.8 H (10-20) Glucose 137 H (70-99) mg/dl POC Glucose 147 H 155 H (70-99) mg/dl Direct Bilirubin 0.4 H (0-0.2) mg/dl Albumin 2.6 L (3.4-5.0) gm/dl 08/30/20 08/30/20 Range/Units 07:51 11:27 PT 12.7 H (9.0-12.0) Seconds INR 1.3 H (0.9-1.1) Sodium (136-145) mmol/L Chloride (98-107) mmol/L Carbon Dioxide (21-32) mmol/L BUN (7-18) mg/dl Creatinine (0.6-1.4) mg/dl BUN/Creatinine Ratio (10-20) Glucose (70-99) mg/dl POC Glucose 192 H (70-99) mg/dl Direct Bilirubin (0-0.2) mg/dl Albumin (3.4-5.0) gm/dl
[2020-08-30] MEDS ORDERED: WARFARIN SOD 1.25 MG TAB PO SCH (16:00)
--- NOTE | 2020-08-30 18:46 | Communication Note ---
Date of Service: August 30, 2020 74 yo M with PMHx significant for ischemic cardiomyopathy, CAD with history of CABG x1 and angioplasty, biventricular AICD in place, chronic HFrEF with diastolic dysfunction, history of aortic valve and mitral valve replacements, PAF anticoagulated on warfarin, HTN, HLD, OBED on CPAP, insulin-dependent T2DM, CKD stage IIIb4, depression, GERD who presents to ED secondary to shortness of breath. Patient seen, denying thoughts of suicide Psych liaison will continue to provide support rounds
[2020-08-30] MEDS: ATORVASTATIN 40 MG TAB PO SCH (21:23)
[2020-08-31 07:50] LABS: INR 1.3 (0.9-1.1); Prothrombin Time 12.7 Seconds (9.0-12.0)
[2020-08-31 08:07] LABS: BUN Creatinine Ratio 24.3 (10-20); Calcium 9.1 mg/dl (8.5-10.1); Creatinine Clr Calc Pharmacy 37.6 ml/min; Est GFR (African American) 34.9 ml/min; Est GFR (Non-African American) 30.1 ml/min; Magnesium 2.3 mg/dl (1.8-2.4); Phosphorus 3.6 mg/dl (2.5-4.9); Potassium 4.5 mmol/L (3.5-5.1)
[2020-08-31] MEDS: PANTOprazole 40 MG TAB PO SCH (08:09)
[2020-08-31] MEDS: METOPROLOL SUCC 25MG EXT REL TAB PO SCH (08:10)
[2020-08-31] MEDS: DULoxetine HCL 20 MG CAP PO SCH (08:10)
[2020-08-31] MEDS: MAGNESIUM OXIDE 400 MG TAB PO SCH (08:10)
[2020-08-31] MEDS: CHOLECALCIFEROL 1,000 UNITS 25 MCG TAB PO SCH (08:11)
[2020-08-31] MEDS: ASCORBIC ACID 500 MG TAB PO SCH (08:11)
[2020-08-31] MEDS: INSULIN GLARGINE SOLOSTAR 100 UNITS/ML 3 ML PEN SC SCH (08:12)
[2020-08-31] MEDS: MICONAZOLE NITRATE POWDER 43 GM EXT SCH (08:12)
[2020-08-31] MEDS: INSULIN ASPART 100 UNITS/ML 3 ML PEN SC SCH ×2 (08:14→12:51)
[2020-08-31] MEDS: POLYETHYLENE (MIRALAX) 17 GM PACK PO SCH (08:16)
[2020-08-31] MEDS: DOCUSATE SODIUM 100 MG CAP PO SCH (08:19)
[2020-08-31] MEDS ORDERED: POTASSIUM CHLORIDE CRTAB 20 MEQ TABCR PO SCH (09:00)
[2020-08-31] MEDS: CLOPIDOGREL BISULFATE 75 MG TAB PO SCH (09:28)
--- NOTE | 2020-08-31 09:52 | Nephrology Progress Note ---
Date of Service August 31, 2020 Assessment & Plan Admission and Anticipated Discharge Date Admission Date: August 16, 2020 Subjective SUBJECTIVE: The patient appears to be better . waiting for placement . No new issues OBJECTIVE: HEENT: Mucous membranes moist. NECK: Supple. No jugular venous distention. CHEST: Bilaterally decreased breath sounds. CARDIOVASCULAR: S1, S2 irregular. Soft systolic murmur heard. ABDOMEN: Soft, nontender. EXTREMITIES: No edema. LABORATORY TEST: Creat and K slowly rising ASSESSMENT AND PLAN: A 74-year-old male with complicated cardiac history and has been labeled essentially as end-stage cardiac disease at this point by cardiology. He was admitted with congestive heart failure. He has known chronic kidney disease at baseline, but in the last few days, it has gotten somewhat worse. Acute renal failure: The acute component is probably related with a cardiorenal situation. However, creatinine has remained fairly stable now for the last 5 days despite diuretics at just over 2. His urine output was quite good, with dobutamine and Lasix drip. Low K and will correct RECOMMENDATIONS: 1.Creat stable--same as yesterday. more important to keep his breathing stable so better to keep him on dry side. Conitnue Current torsemide dose. Results & Data ([facility]) Vital Signs (Past 12 Hours) Vital Signs Temp Pulse Pulse Resp BP Pulse Ox 08/31/20 07:44 36.3 C L 85 18 115/69 97 08/31/20 04:00 36.3 C L 67 20 105/66 92 08/30/20 23:49 88 08/30/20 23:00 37 C 87 20 110/68 96
--- NOTE | 2020-08-31 11:00 | Discharge Summary ---
Date of Service August 31, 2020 Admission HPI Per Admitting Provider This is a 74 yo M with PMHx significant for ischemic cardiomyopathy, CAD with history of CABG x1 and angioplasty, biventricular AICD in place, chronic HFrEF with diastolic dysfunction, history of aortic valve and mitral valve replacements, PAF anticoagulated on warfarin, HTN, HLD, OBED on CPAP, insulin- dependent T2DM, CKD stage IIIb4, depression, GERD who presents to ED secondary to shortness of breath. Patient was recently admitted to [facility] from 07/14/2020 to 07/25/2020 and then transferred to [facility], [place] for rehab on 07/25/2020 to 08/10/2020. Patient arrived home last Thursday. Since then he reports progressive shortness of breath. He is unable to ambulate with walker more than 8-10 feet without significant dyspnea. He reports that his pacemaker went off in the middle the night around 3 AM, as well as early this morning again while in the ER. He notes his pacemaker will require battery replacement later this fall. He admits to having mild waxing and waning left-sided chest pain, rated as 2/10 for the past 3 weeks. He feels it is worse whenever he sleeps on his right side and his arm is laying against the pacemaker. Denies any radiation. Patient denies any changes in diet or fluid intake. Meals on Wheels did start coming back to his house, therefore ate 1 of those meals yesterday. His baseline weight is around 255 pounds, last weighed himself 2 days ago which was 255. At baseline he has some trace swelling in the right leg, however reports swelling has increased slightly in both his feet, and more so in the left. Denies bloating, abdominal swelling, or swelling in fingers. He has been taking all his routinely scheduled medications including Lasix 80 mg p.QAM and 40 mg QPM. He missed his medications today, other than potassium replacement, due to shortness of breath. Of note he was supposed to get home oxygen delivered to his house today, which has been somewhat of a struggle due to paperwork issues, and was supposed to be delivered soon after his discharge from [facility], [place]. He does wear CPAP mask at night. Patient notes he was supposed to follow-up with cardiology as an outpatient tomorrow in the office. He follows with Dr. Isaacs and Bryson Michelle PA-C. Patient lives at home by himself. He has a neighbor who checks in on him once a day. No history of drinking or smoking. In the ER the patient is found to have troponin of 0.053, BNP of 27,000, CXR showing progress pulmonary edema. He has trace edema in his feet and ankles. Admission Exam Per Admitting Provider General: awake, alert, no apparent distress, + obese with BMI 40.1 Head: Normocephalic, atraumatic ENT: PERRL, EOMI, no pharyngeal exudate, mucous membranes slightly dry Chest: Diminished with + faint crackles throughout, absent sounds at bases bilaterally, on 2L via NC with O2 sats at 93%. No rales or wheeze. Cardiac: Regular rate and rhythm, paced, no murmur, JVD unable to be assessed due to body habitus and leonardo on chin/neck, normal peripheral pulses, good capillary refill Abdominal: NABS x 4 quadrants, + obese, soft, nondistended, nontender to palpation, no rebound or guarding Extremities: Normal inspection, 1+ peripheral edema BLE in feet and ankles, no erythema, calfs nontender to palpation Psych: Normal mood and affect Neuro: AAO x 3, strength intact bilaterally and rated 5/5, no motor deficits, speech is clear, no peripheral sensory deficits Principal Diagnosis Acute on chronic systolic heart failure Acute hypoxic respiratory failure Acute on chronic kidney disease stage 4 Discharge Exam Constitutional + well hydrated and + obese; no acute distress Eyes PERRL, conjunctivae normal, anicteric sclerae ENMT external ear and nose normal, oropharynx normal Respiratory normal respiratory effort, lungs clear to auscultation Cardiovascular Rate/Rhythm: regular rate and regular rhythm S1 S2 Gastrointestinal (Abdomen) normal bowel sounds, soft, nontender, no hepatosplenomegaly Musculoskeletal no cyanosis or clubbing, extremities motor strength 5/5 Neurologic PERRL, EOMI, accommodation nl, no face palsy, no dysarthria Psychiatric A+Ox3, euthymic affect Discharge Data Allergies Allergy/AdvReac Type Severity Reaction Status Date / Time No Known Allergies Allergy Unverified 02/12/20 18:24 Consultations 08/16/20 07:29 ED Decision to Admit Stat 08/16/20 07:35 Consult Cardiology Routine 08/18/20 10:54 Consult Pulmonology Routine 08/19/20 07:35 Consult Nephrology Routine 08/19/20 10:31 Consult Collection Clerk Routine 08/19/20 12:11 Consult Palliative Care Routine 08/22/20 14:52 Consult Psychiatry Routine Ordered Studies 08/19/20 07:34 US liver Urgent Liver: The liver is enlarged, measuring 20 cm in length. Echotexture is heterogeneous. There is nodularity of the hepatic surface contour. There is no intrahepatic biliary ductal dilatation. The main portal vein is patent. Gallbladder: The gallbladder is mildly distended and filled with stones and sludge. There is no gallbladder wall thickening or pericholecystic fluid. A sonographic Jessica's sign is reportedly absent. The common bile duct measures up to 0.6 cm in diameter. Pancreas: Visualized portions of the pancreatic head are grossly unremarkable. The majority of the pancreas was not visualized.. Right kidney: Survey images of the right kidney demonstrate cortical atrophy. Echotexture is normal. There is no hydronephrosis. Ascites: None. IMPRESSION: 1. The liver is enlarged, heterogeneous, and shows cirrhotic change. 2. Cholelithiasis and biliary sludge with no sonographic evidence of acute cholecystitis. 08/19/20 08:46 CT chest diagnostic wo con Urgent FINDINGS: Thyroid: Imaged portions of the thyroid gland are normal in size and attenuation. Thoracic aorta: There is atherosclerotic calcification of the thoracic aorta, which is normal in caliber and demonstrates standard 3-vessel arch anatomy. Heart: A 2-lead cardiac AICD is present in the left chest wall. The patient is status post midline sternotomy with postoperative change seen involving the aortic and mitral valves. Epicardial pacing leads are noted. The heart is markedly enlarged and without pericardial effusion. The coronary arteries are densely calcified. Lungs and pleural spaces: Secretions are noted in the upper trachea. Diffuse groundglass consolidation is seen throughout both lungs. There is intralobular septal thickening. Round atelectasis is suggested at the right lung base. There are small left and trace right pleural effusions with associated atelectasis. Le ft pleural effusion appears at least partially loculated. Mediastinum: Numerous mildly enlarged mediastinal lymph nodes measure up to 11 mm in short axis. Mackenzie: Not well assessed without IV contrast. Axillae: There is no axillary lymphadenopathy. Upper abdomen: The gallbladder is somewhat hyperdense material which could represent vicariously excreted contrast or sludge. Filling defects within the gallbladder lumen likely represent gallstones. There is a tiny hiatal hernia. The pancreas is atrophic with numerous parenchymal calcifications and consistent with chronic pancreatitis. Several stones are present within the main pancreatic duct which is mildly dilated distally. Skeletal structures: The skeletal structures are osteopenic. Spondylotic change is seen throughout the thoracic spine. Arthritic change is noted in the shoulders. No lytic or blastic bony lesions are seen. IMPRESSION: 1. Cardiomegaly and AICD. Intralobular septal thickening could be related to acute versus chronic congestive failure. 2. Diffuse groundglass consolidation is seen throughout both lungs. This could represent pulmonary edema, multifocal pneumonia, and/or ARDS. Clinical correlation will be essential. Radiographic follow-up to resolution is recommended. 3. Small left and trace right pleural effusions. 4. Cholelithiasis. 5. There is evidence of chronic pancreatitis with large stones within the main pancreatic duct. 6. Mildly enlarged mediastinal lymph nodes are likely reactive. Hospital Course (1) Acute on chronic systolic heart failure: Patient was manage for acute on chronic systolic heart failure Required diuresis. Was comanaged with maori liaison adviser and muffle operator Had JUAN on CKD Possibly cardiorenal. Initially had elevated LFTs. Likely due to congestive hepatopathy. Amiodarone, statins were suspended at that time. LFTs normalized. Discharge today to assisted facility and torsemide 20 mg twice daily. Amiodarone resumed. Imdur discontinued. Metoprolol succinate dose changed to 12.5 mg daily Still requiring oxygen at 2 to 3 L/min. We will continue to wean at the assisted facility Notably not on GDMT including no ACEI/ARB/Entresto/aldactone 2/2 hyperkalemia in the past in setting of renal insufficiency. Patient is to follow-up with cardiology and nephrology (2) Acute respiratory failure with hypoxemia: Wean oxygen as tolerated (3) Cardiorenal syndrome with renal failure: (4) Acute kidney injury: (5) CKD (chronic kidney disease) stage 4, GFR 15-29 ml/min: Acute renal failure with CKD stage IV, possible secondary to cardiac decompensation Discharged on torsemide 20 mg twice daily. To get BMP next week to manage renal function Needs to follow-up with nephrology. (6) PAF (paroxysmal atrial fibrillation): Rate controlled Continue warfarin (7) Transaminitis: Resolved Likely related to passive congestion from heart failure exacerbation. (8) Valvular heart disease: Noted complex cardiac history with prosthetic aortic valve and severe MR. (9) Diabetes mellitus, type 2: Continue antidiabetic regimen Recent A1C in June 2020 was at goal 6.8. Total Time Total Time Spent Total Time Spent (In Minutes): 50 Total Time Includes: Examination of the Patient, Discharge Planning, Medication Reconciliation and Communication With Other Providers Discharge Plan Discharge Items Patient Disposition: Transfer [facility] Reason For Visit: SOB,CHF Discharge Diagnosis: Acute on chronic systolic heart failure Acute hypoxic respiratory failure Acute on chronic kidney disease stage 4 Activity: As commented below Activity Comment: Per PT/OT instructions Non-emergency contact: Primary Care Provider, Co Teacher and Machine Bander And Cell[employer]er Helper Call non-emergency contact if: you have any medication questions Follow-up/Referrals: Glenn Payne PA-C [Primary Care Provider] - Diet: Carb Consistent or DM2 and Heart Healthy Fluids: 2000ml (8 cups) Ambulatory Orders: Basic Metabolic Panel (Routine) Timeframe: 1 Week Location: Determined by Patient Ordered By: Karin Maynard Attending Provider Instructions: Mr Watkins. You presented to the hospital with shortness of breath. You were managed for acute on chronic systolic heart failure and worsening kidney disease. You were comanaged with the Co Teacher and Machine Bander And Cellophaner Helper. You are being discharged to a assisted facility. Please continue to take medications as prescribed. Attempts will continue to be made to wean down or off the oxygen at the nursing facility. You are being discharged on torsemide 20mg twice daily Your imdur was stopped Your metoprolol succinate was reduced to 12.5mg Please continue taking your amiodarone 200mg daily Please get a basic metabolic panel next week to monitor renal function Please ensure follow up with Cardiology and Nephrology. It was a pleasure taking care of you. Pending Studies at Discharge: No Stand-Alone Forms: My [facility] Skilled Items Patient informed of condition?: Yes DNR: Yes Discharge Level of Care: Skilled Communicable Disease: No Discharge Prognosis: Stable Lines: None Urinary Catheter: No Medications and DC Order Prescriptions: New metoprolol succinate 25 mg Tablet Extended Release 24 Hr 12.5 mg PO QAM 30 Days Qty: 15 RF: 0 potassium chloride [Klor-Con M20] 20 mEq Tablet,Er Particles/Crystals 20 meq PO DAILY 30 Days Qty: 30 RF: 0 torsemide 20 mg Tablet 20 mg PO BID 30 Days Qty: 60 RF: 0 amiodarone 200 mg tablet 200 mg PO DAILY Qty: 30 RF: 0 Continued clopidogrel 75 mg tablet 75 mg PO QAM RF: 0 nitroglycerin 0.4 mg tablet, sublingual 0.4 mg sublingual DIRECTED PRN (Reason: Chest Pain) RF: 0 omeprazole 20 mg capsule,delayed release(DR/EC) 20 mg PO QAM PRN (Reason: Gi Upset) RF: 0 albuterol sulfate 90 mcg/actuation HFA aerosol inhaler 2 puff INHALATION QID PRN (Reason: Shortness Of Breath Or Wheezing) RF: 0 ascorbic acid (vitamin C) [Vitamin C] 500 mg Tablet,Chewable 500 mg PO BID RF: 0 docusate sodium 100 mg Capsule 100 mg PO BID RF: 0 atorvastatin 80 mg tablet 80 mg PO QPM RF: 0 cyanocobalamin (vitamin B-12) 1,000 mcg/mL Solution 1,000 mcg IM MO RF: 0 magnesium oxide 400 mg magnesium Tablet 400 mg PO DAILY RF: 0 duloxetine 20 mg capsule,delayed release(DR/EC) 20 mg PO QAM RF: 0 cholecalciferol (vitamin D3) [Vitamin D3] 125 mcg (5,000 unit) Tablet 125 mcg PO Q2D RF: 0 warfarin 2.5 mg tablet 1.25 mg PO DAILY Qty: 20 RF: 0 Tresiba FlexTouch U-100 100 unit/mL (3 mL) insulin pen 15 unit subcut QAM Qty: 15 RF: 0 insulin aspart U-100 [Novolog Flexpen U-100 Insulin] 100 unit/mL (3 mL) insulin pen 8 unit subcut AC Qty: 15 RF: 0 Discontinued furosemide 80 mg tablet 80 mg PO QAM RF: 0 metoprolol succinate 100 mg tablet extended release 24 hr 100 mg PO DAILY RF: 0 isosorbide mononitrate 30 mg tablet extended release 24 hr 60 mg PO QAM 30 Days Qty: 60 RF: 0 furosemide 80 mg Tablet 40 mg PO DAILY@1300 RF: 0 amiodarone 200 mg tablet 200 mg PO DAILY RF: 0 Discharge Orders: Discharge Order (Routine); Ordered 08/31/20 Ordered By: Karin Agustin Admission Data Admit Date/Time: 08/16/20 07:36 Attending Provider: Karin Agustin I. Admit Provider: Rocio Steel Primary Care Provider: Glenn Payne Other Providers: Isidoro Espinoza ; [facility] ; [place] ; [facility] ; Alka Ching ; Rocio Steel ; Martell Guzmán ; Arya Isaacs ; Catracho De Santiago ; Bryan Iglesias ; Lee Harmon ; Bryson Michelle ; Leilani Mariscal ; Clementine Pereira ; Kayleen Garcia ; Cullen Barclay ; Jodi Zavaleta ; Gama Hollis ; Mauricio Powell ; Augustina Sloan ; Christina Tran ; Dr Silver ; Sarina Gonzalez ; Johnny Lopez Other Interventions: Discharge Summary Assessment (RN) Last Done: 08/31/20 11:11
--- NOTE | 2020-08-31 11:52 | Palliative Care Progress Note ---
Date of Service August 31, 2020 Assessment & Plan (1) Palliative care encounter: I met with Mr. Durham who was AAOx3 and in no apparent distress. He was sitting upright in his bed. He is eager, but also nervous for discharge to SNF for gentle rehab. He is tolerating his 4LNC oxygen and is in no apparent distress. We talked about our previous conversation and his goals remain unchanged that pending how rehab goes, whenever he declines, he would like to shift his focus to hospice. I explained that prior to discharge, it would be helpful to have a POLST form completed in order to assist the staff at [facility] with his overall goals and treatment plan. See below for the details of the POLST completed. Mr. Leigh has no additional symptom management needs. Thanks for allowing Palliative Medicine to follow this individual. (2) Acute on chronic systolic heart failure: (3) Cardiorenal syndrome with renal failure: (4) OBED (obstructive sleep apnea): (5) Weakness: (6) POLST (Physician Orders for Life-Sustaining Treatment): POLST form completed and signed by the patient indicating: DNR/DNI in the event of cardiac or pulmonary arrest, comfort transition if decline with avoiding future hospitalizations, trial abx, and no artificial nutrition/hydration. Copy placed on chart. Original to go to [facility]. His niece, Marita, is his POA and decision maker who lives in [facility]. In the event he would decline, she would like notification so that she can make arrangements to be with him. Admission and Anticipated Discharge Date Admission Date: August 16, 2020 Subjective Patient is doing well. He is anxious to be transferred to rehab. Pending how he does, would like to transition to hospice. See A/P for further details Review of Systems Review of Systems: [place] [facility] Assessment Scale: Pain: 0/3 Shortness of Breath: 1/3 Tiredness: 1/3 Lack of appetite: 0/3 Anxiety: 0/3 Palliative Performance Scale: 30% Physical Exam Constitutional: + obese, cooperative and comfortable ENMT: external ear and nose normal, oropharynx normal Nose: + dry nasal mucous membranes Respiratory: + cough Auscultation: + rales Cardiovascular: RRR, no murmur, no edema Heart Sounds: normal S1, normal S2 and + murmur Extremities: normal capillary refill and + edema Gastrointestinal (Abdomen): normal bowel sounds, soft, nontender, no hepatosplenomegaly Inspection/Auscultation: abdomen normal to inspection and normal bowel sounds Percussion/Palpation: abdomen soft Skin: + skin tightening and + pallor Psychiatric: A+Ox3, euthymic affect Insight: good insight Judgement: good judgement Results & Data ([facility]) Vital Signs (Past 12 Hours) Vital Signs Temp Pulse Pulse Pulse Resp BP BP 08/31/20 11:11 36.3 C L 93 H 85 18 100/65 115/69 08/31/20 07:44 36.3 C L 85 18 115/69 08/31/20 04:00 36.3 C L 67 20 105/66 08/30/20 23:49 88 Pulse Ox 08/31/20 11:11 97 08/31/20 07:44 97 08/31/20 04:00 92 08/30/20 23:49 PG Care Time/CCT Total # of Minutes Spent Total Time Spent with Patient: Total time spent is greater than 50% in coordination of care (as documented) at patient's floor/unit and/or counseling patient: 35 minutes with > 50% of that time spent assessing the patient, discussing and completing a POLST form with the patient, and collaborating with IDT Coding Level of Care Code 93418 Subseq Hosp Care Lvl 3 Diagnoses Palliative care encounter Z51.5 Acute on chronic systolic heart failure I50.23 Cardiorenal syndrome with renal failure I13.10 OBED (obstructive sleep apnea) G47.33 Weakness R53.1 POLST (Physician Orders for Life-Sustaining Treatment) Z78.9 Time Spent (min) 35
== END 2020-08-31 13:27 | DRG 291 ==
LOC: ED 05:25 → 2E 07:36 → SUATTDRO 07:36 → 2E 10:28 → 1E 08-19 11:40 → 2S 08-21 11:21 → 2W 08-30 17:01

== ENCOUNTER 2020-10-17 12:43 | Observation (INO) ==
--- NOTE | 2020-10-17 13:21 | Emergency Department Note ---
Impression & Plan SOB (shortness of breath), CHF (congestive heart failure), Anasarca ED Provider Note INFORMANT: Patient ED PROVIDER(S): Miguel Ángel Donovan MD CHIEF COMPLAINT: Shortness of breath PLAN: Disposition: Admitted Condition: Good Outpatient prescription management: none Referral: None MEDICAL DECISION MAKING: Patient presented because of shortness of breath and weight gain. Zickel examination was concerning for CHF. The patient's chest x-ray was also concerning. The patient was doing well with nasal cannula oxygen. His CBC showed a moderate anemia which is stable for him. INR was minimally elevated at 1.3. The patient's creatinine is bumped up to 3.28. This is concerning for mild JUAN. His BNP is markedly elevated consistent with CHF. The patient was given IV Lasix. Consultation was made with internal medicine. Patient was evaluated in the ER by the [facility] hospitalist service and admitted for further management. Triage Nursing notes reviewed and agree them. Vital Signs: reviewed and remarkable for no significant abnormalities Differential diagnosis: CHF, JUAN, lecture light abnormality, reactive airway disease, pneumonia, pneumothorax, COPD, infections, cardiac ischemia, pulmonary embolism, musculoskeletal, gastrointestinal, as well as other pathologies. Diagnostics interpreted by me: ECG: Twelve-lead ECG reveals a ventricular paced rhythm at 69 bpm. Premature ventricular contractions present. No ST elevation. Cardiac Monitoring: Cardiac monitoring ordered by me: The patient was placed on continuous cardiac monitoring and observed. It revealed a paced rhythm at 70 bpm. Imaging studies: Chest x-ray concerning for CHF. I refer you to the EMR for further details. HPI: The patient is a 74 year old male who presents to the Emergency Room with complaints of shortness of breath. This started over the last week and is worsening today. The patient also notes the following associated symptoms, weakness, a minor fall trying to get in bed today, lower extremity and upper extremity edema, 18 pound weight gain. The patient has been using his diuretics and oxygen for relieving factors. Current pain is rated as 0/10. Patient has a history of CHF and cardiorenal syndrome. He is followed by [facility] for this. Pt denies LOC, headache, fevers, chills, diaphoresis, visual changes, neck pain, chest pain,nausea, vomiting, abdominal pain, back pain, melena, hematochezia, urinary symptoms, numbness, lymphadenopathy, rash, or other complaints. ROS: See above HPI for pertinent positives & negatives. A total of 10 systems reviewed and were otherwise negative. PAST MEDICAL HISTORY:See Below , CHF, CAD PAST SURGICAL HISTORY:See Below, valve replacement, cardiac stent FAMILY HISTORY:See Below SOCIAL HISTORY:See Below, non-smoker HOME MEDICATIONS:See Below ALLERGIES:See Below VITALS:See Below PHYSICAL EXAMINATION: GENERAL: Awake, alert, mildly dyspneic-appearing, in no distress HENT: Normocephalic, atraumatic. Oropharynx unremarkable. EYES: Normal conjunctiva. Sclera non-icteric. NECK: Inspection normal. Non-tender. Supple. No nuchal rigidity. FROM. No masses. RESPIRATORY: Clear to auscultation. No wheezes. No rales. Normal respiratory effort. CARDIAC: Normal rate. Normal rhythm. No murmurs. No rubs. Extremities warm and well perfused. Pulses equal. No JVD. GI: Soft, non-distended. No tenderness to palpation. No rebound or guarding. No masses. RECTAL: Deferred. MUSCULOSKELETAL: Atraumatic. Chest examination reveals no tenderness. The back is symmetrical on inspection without obvious abnormality. There is no CVA tenderness to palpation. 2+ upper extremity edema bilaterally. LOWER EXTREMITIES: Calves are equal size bilaterally and non-tender. 3+ pitting edema. Chronic venous and erythematous discoloration. No cellulitis. NEURO: Normal sensorium. No sensory or motor deficits noted. SKIN: No rash or jaundice noted. Miguel Ángel Donovan MD Past Med/Surg History Medical History Acute respiratory failure with hypoxia CAD (coronary artery disease) 07/2018: coronary artery bypass grafting x1 with reverse saphenous vein from aorta to right coronary artery via endoscopic saphenous vein harvesting; PCI to mid LAD with RIZWAN Chronic HFrEF (heart failure with reduced ejection fraction) Chronic kidney disease CKD (chronic kidney disease) stage 4, GFR 15-29 ml/min Diabetes mellitus, type 2 GERD (gastroesophageal reflux disease) History of ventricular fibrillation Hyperlipidemia Hypertension OBED on CPAP PAF (paroxysmal atrial fibrillation) Palliative care encounter Pernicious anemia POLST (Physician Orders for Life-Sustaining Treatment) Weakness Surgical History H/O aortic valve replacement Status post bioprosthetic AVR in 2004 Aortic valve prosthesis stenosis and mitral regurgitation requiring redo sternotomy jul 21 2013 with redo AVR and subsequent MVR. H/O mitral valve replacement History of appendectomy History of cardiac cath History of colonoscopy History of coronary artery bypass graft x 1 coronary artery bypass grafting x1 with reverse saphenous vein from aorta to right coronary artery via endoscopic saphenous vein harvesting. 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 Beliefs That Will Affect Care: None marital status: Single Current Living Situation: Senior Living current occupation: retired Other Information That Helps Us Care for You: No Feels Safe at Home: Yes Assistive Devices: Oxygen - Continuous and Walker Allergies Allergies Allergy/AdvReac Type Severity Reaction Status Date / Time No Known Allergies Allergy Verified 10/17/20 14:44 Home Meds Home Medications Medication Instructions Recorded Confirmed albuterol sulfate 90 mcg/actuation 2 puff INHALATION Q6H PRN 12/07/19 10/17/20 aerosol inhaler ascorbic acid (vitamin C) 500 mg 500 mg PO BIDM 12/07/19 10/17/20 chewable tablet (Vitamin C) clopidogrel 75 mg tablet 75 mg PO QAM 12/07/19 10/17/20 docusate sodium 100 mg capsule 100 mg PO BIDM 12/07/19 10/17/20 nitroglycerin 0.4 mg sublingual 0.4 mg SUBLINGUAL DIRECTED PRN 12/07/19 10/17/20 tablet omeprazole 20 mg capsule,delayed 20 mg PO DAILY 12/07/19 10/17/20 release atorvastatin 80 mg tablet 80 mg PO HS 12/30/19 10/17/20 cyanocobalamin (vitamin B-12) 1,000 mcg IM MONTHLY 12/30/19 10/17/20 1,000 mcg/mL injection solution magnesium oxide 400 mg PO DAILY 12/30/19 10/17/20 duloxetine 20 mg capsule,delayed 20 mg PO QAM 02/12/20 10/17/20 release cholecalciferol (vitamin D3) 125 125 mcg PO Q2D 07/14/20 10/17/20 mcg (5,000 unit) tablet (Vitamin D3) acetaminophen 325 mg tablet 650 mg PO Q6H PRN 10/17/20 10/17/20 (Tylenol) gabapentin 100 mg capsule 100 mg PO AMHS 10/17/20 10/17/20 insulin degludec 100 unit/mL (3 10 unit SUBCUT QAM 10/17/20 10/17/20 mL) subcutaneous pen (Tresiba FlexTouch U-100 insulin) ipratropium 0.5 mg-albuterol 3 mg 3 ml INHALATION QID 10/17/20 10/17/20 (2.5 mg base)/3 mL nebulization soln isosorbide mononitrate 30 mg 30 mg PO QAM 10/17/20 10/17/20 tablet,extended release 24 hr magnesium hydroxide 400 mg/5 mL 30 ml PO DAILY PRN 10/17/20 10/17/20 oral suspension (Milk of Magnesia) metolazone 2.5 mg tablet 2.5 mg PO BID 10/17/20 10/17/20 metoprolol succinate 25 mg 12.5 mg PO DAILY 10/17/20 10/17/20 tablet,extended release 24 hr potassium chloride 20 mEq 20 meq PO TIDM 10/17/20 10/17/20 tablet,extended release torsemide 20 mg tablet 40 mg PO BIDM 10/17/20 10/17/20 tramadol 50 mg tablet 50 - 100 mg PO Q6H PRN 10/17/20 10/17/20 Previous Rx's Medication Instructions Recorded insulin aspart U-100 100 unit/mL 8 unit SUBCUT AC #15 ml 07/25/20 (3 mL) subcutaneous pen (Novolog Flexpen U-100 Insulin aspart) amiodarone 200 mg tablet 200 mg PO DAILY #30 tab 08/31/20 Results & Data (ED) Vital Signs Vital Signs - 24 hr 10/17/20 12:44 10/17/20 12:57 10/17/20 13:00 Temperature 36.4 C L Temperature Source Oral Pulse Rate 72 69 Pulse Rate from SpO2 Sensor 68 Respiratory Rate 25 H 25 H Respiratory Effort / Characteristics Non-Labored Spontaneous Respiratory Depth Normal Respiratory Pattern Regular Blood Pressure 107/37 L 86/62 L Blood Pressure Mean 60 70 Blood Pressure Position Lying Pulse Oximetry 100 100 Oxygen Delivery Method Nasal Cannula Nasal Cannula Nasal Cannula Oxygen Flow Rate 4 4 4 Sepsis Recent Fever Within 48 Hours No Sepsis New/Unexplained Change in Mental Status No Sepsis Action Taken by Nursing No Action Required 10/17/20 13:21 10/17/20 13:27 10/17/20 14:02 Temperature Temperature Source Pulse Rate 67 69 70 Pulse Rate from SpO2 Sensor 69 71 Respiratory Rate 24 22 19 Respiratory Effort / Characteristics Respiratory Depth Respiratory Pattern Blood Pressure 106/66 Blood Pressure Mean 79 Blood Pressure Position Pulse Oximetry 100 100 100 Oxygen Delivery Method Nasal Cannula Nasal Cannula Nasal Cannula Oxygen Flow Rate 4 4 4 Sepsis Recent Fever Within 48 Hours Sepsis New/Unexplained Change in Mental Status Sepsis Action Taken by Nursing 10/17/20 14:10 10/17/20 14:20 10/17/20 14:30 Temperature Temperature Source Pulse Rate 71 69 71 Pulse Rate from SpO2 Sensor 71 70 72 Respiratory Rate 17 17 19 Respiratory Effort / Characteristics Respiratory Depth Respiratory Pattern Blood Pressure 108/76 Blood Pressure Mean 86 Blood Pressure Position Pulse Oximetry 100 100 100 Oxygen Delivery Method Nasal Cannula Nasal Cannula Nasal Cannula Oxygen Flow Rate 4 4 4 Sepsis Recent Fever Within 48 Hours Sepsis New/Unexplained Change in Mental Status Sepsis Action Taken by Nursing 10/17/20 15:00 Temperature Temperature Source Pulse Rate 72 Pulse Rate from SpO2 Sensor 74 Respiratory Rate 22 Respiratory Effort / Characteristics Respiratory Depth Respiratory Pattern Blood Pressure 133/99 Blood Pressure Mean 110 Blood Pressure Position Pulse Oximetry 100 Oxygen Delivery Method Nasal Cannula Oxygen Flow Rate 4 Sepsis Recent Fever Within 48 Hours Sepsis New/Unexplained Change in Mental Status Sepsis Action Taken by Nursing Laboratory Data Result diagrams: 10/17/20 13:35 10/17/20 13:35 Lab Results 10/17/20 10/17/20 10/17/20 Range/Units 13:32 13:32 13:35 WBC 7.55 (4.8-10.8) K/uL RBC 2.95 L (4.7-6.1) M/uL Hgb 8.6 L (14.0-18.0) g/dL Hct 28.3 L (42-52) % MCV 95.9 (80-100) fL MCH 29.2 (25-34) pg MCHC 30.4 L (32-36) g/dL RDW Std Deviation 68.2 H (36.4-46.3) fL RDW Coeff of Rosio 19.6 H (11.5-14.5) % Plt Count 216 (130-400) K/uL MPV 12.5 H (7.4-10.4) fL Immature Gran % (Auto) 0.1 % Neut % (Auto) 80.8 % Lymph % (Auto) 10.9 % [place] % (Auto) 6.4 % Eos % (Auto) 1.5 % Baso % (Auto) 0.3 % Neut # (Auto) 6.11 (1.4-6.5) K/uL Lymph # (Auto) 0.82 L (1.2-3.4) K/uL [place] # (Auto) 0.48 (0.11-0.59) K/uL Eos # (Auto) 0.11 (0-0.5) K/uL Baso # (Auto) 0.02 (0-0.2) K/uL Immature Gran # (Auto) 0.01 (0.00-0.02) K/uL PT (9.0-12.0) Seconds INR (0.9-1.1) APTT (21.0-31.0) Seconds PTT Ratio Sodium (136-145) mmol/L Potassium (3.5-5.1) mmol/L Chloride (98-107) mmol/L Carbon Dioxide (21-32) mmol/L Anion Gap (3-11) BUN (7-18) mg/dl Creatinine (0.6-1.4) mg/dl Est Cr Clr Drug Dosing ml/min Est GFR ( Amer) ml/min Est GFR (Non-Af Amer) ml/min BUN/Creatinine Ratio (10-20) Glucose (70-99) mg/dl Calcium (8.5-10.1) mg/dl Magnesium (1.8-2.4) mg/dl Total Bilirubin (0.2-1) mg/dl AST (15-37) U/L ALT (12-78) U/L Alkaline Phosphatase (45-117) U/L Troponin I (0-0.045) ng/ml NT-Pro-B Natriuret Pep (0-900) pg/ml Total Protein (6.4-8.2) gm/dl Albumin (3.4-5.0) gm/dl Globulin (2.5-4.0) gm/dl Albumin/Globulin Ratio (0.9-2) Urine Color Urine Appearance (Clear) Urine pH (4.5-7.5) Ur Specific [place] (1.000-1.030) Urine Protein (Negative) Urine Glucose (UA) (Negative) Urine Ketones (Negative) Urine Blood (Negative) Urine Nitrite (Negative) Urine Bilirubin (Negative) Urine Urobilinogen (Negative) Ur Leukocyte Esterase (Negative) Urine WBC (Auto) (0-5) /hpf Urine RBC (Auto) (0-4) /hpf U Hyaline Cast (Auto) (0-5) /lpf U Epithel Cells (Auto) (0-5) /lpf Urine Bacteria (Auto) (Negative) COVID-19 Eval Order Covid19 at [facility] SARS-CoV-2 (PCR) NEGATIVE (Negative) 10/17/20 10/17/20 10/17/20 Range/Units 13:35 13:35 15:00 WBC (4.8-10.8) K/uL RBC (4.7-6.1) M/uL Hgb (14.0-18.0) g/dL Hct (42-52) % MCV (80-100) fL MCH (25-34) pg MCHC (32-36) g/dL RDW Std Deviation (36.4-46.3) fL RDW Coeff of Rosio (11.5-14.5) % Plt Count (130-400) K/uL MPV (7.4-10.4) fL Immature Gran % (Auto) % Neut % (Auto) % Lymph % (Auto) % [place] % (Auto) % Eos % (Auto) % Baso % (Auto) % Neut # (Auto) (1.4-6.5) K/uL Lymph # (Auto) (1.2-3.4) K/uL [place] # (Auto) (0.11-0.59) K/uL Eos # (Auto) (0-0.5) K/uL Baso # (Auto) (0-0.2) K/uL Immature Gran # (Auto) (0.00-0.02) K/uL PT 12.7 H (9.0-12.0) Seconds INR 1.3 H (0.9-1.1) APTT 26.8 (21.0-31.0) Seconds PTT Ratio 1.0 Sodium 136 (136-145) mmol/L Potassium 4.6 (3.5-5.1) mmol/L Chloride 98 (98-107) mmol/L Carbon Dioxide 29 (21-32) mmol/L Anion Gap 9.0 (3-11) BUN 74 H (7-18) mg/dl Creatinine 3.28 H (0.6-1.4) mg/dl Est Cr Clr Drug Dosing 24.1 ml/min Est GFR ( Amer) 20.5 ml/min Est GFR (Non-Af Amer) 17.7 ml/min BUN/Creatinine Ratio 22.6 H (10-20) Glucose 68 L (70-99) mg/dl Calcium 8.5 (8.5-10.1) mg/dl Magnesium 2.1 (1.8-2.4) mg/dl Total Bilirubin 0.7 (0.2-1) mg/dl AST 18 (15-37) U/L ALT 17 (12-78) U/L Alkaline Phosphatase 108 (45-117) U/L Troponin I 0.046 H* (0-0.045) ng/ml NT-Pro-B Natriuret Pep 65244 H (0-900) pg/ml Total Protein 6.6 (6.4-8.2) gm/dl Albumin 2.4 L (3.4-5.0) gm/dl Globulin 4.2 H (2.5-4.0) gm/dl Albumin/Globulin Ratio 0.6 L (0.9-2) Urine Color Yellow Urine Appearance Cloudy A (Clear) Urine pH 6.0 (4.5-7.5) Ur Specific [place] 1.013 (1.000-1.030) Urine Protein 1+ H (Negative) Urine Glucose (UA) Negative (Negative) Urine Ketones Negative (Negative) Urine Blood Trace H (Negative) Urine Nitrite Negative (Negative) Urine Bilirubin Negative (Negative) Urine Urobilinogen Negative (Negative) Ur Leukocyte Esterase 3+ H (Negative) Urine WBC (Auto) >30 H (0-5) /hpf Urine RBC (Auto) 0-4 (0-4) /hpf U Hyaline Cast (Auto) 1-5 (0-5) /lpf U Epithel Cells (Auto) 5-10 H (0-5) /lpf Urine Bacteria (Auto) 3+ H (Negative) COVID-19 Eval Order SARS-CoV-2 (PCR) (Negative) Administered Medications Albuterol (Albut/Ipratrop 3mg/0.5mg Neb 3 Ml Vial) 3 ml INH QIDR DYLAN Stop: 11/16/20 18:59 Last Admin: 10/17/20 19:44 Dose: 3 ml Documented by: [id number] Atorvastatin Calcium (Atorvastatin 40 Mg Tab) 80 mg PO HS DYLAN Stop: 11/16/20 20:59 Last Admin: 10/17/20 20:59 Dose: 80 mg Documented by: [id number] Gabapentin (Gabapentin 100 Mg Cap) 100 mg PO AMHS DYLAN Stop: 11/16/20 20:59 Last Admin: 10/17/20 21:00 Dose: 100 mg Documented by: [id number] Furosemide 60 mg/ Syringe 6 mls @ 4 mls/min IV BID DYLAN Stop: 11/16/20 20:59 Last Admin: 10/17/20 20:59 Dose: 4 mls/min Documented by: [id number] Insulin Aspart (Insulin Aspart 100 Units/Ml 3 Ml Pen) 0 units SC ACHS DYLAN Stop: 11/16/20 18:28 Last Admin: 10/17/20 19:17 Dose: Not Given Documented by: [id number] Cosigned by: [id number] Discontinued Medications Furosemide (Furosemide 40 Mg/4 Ml Vial) 40 mg IV NOW STA Stop: 10/17/20 14:33 Last Admin: 10/17/20 15:03 Dose: 40 mg Documented by: [id number] Imaging Data Radiologist's Impression: Chest X-Ray 10/17/20 13:12 XR chest 1V portable CLINICAL HISTORY: Dyspnea COMPARISON STUDY: Chest CT August 19, 2020. Chest radiograph August 20, 2020. FINDINGS: Note is made of median sternotomy wires, a left subclavian biventricular pacer/AICD and prosthetic aortic and mitral valves. Marked cardiomegaly is again noted. There is no pneumothorax. There are small bilateral pleural effusions. Interstitial thickening and bilateral opacities are noted. IMPRESSION: 1. Interstitial thickening and bilateral opacities. Pulmonary edema is favored however an infectious process could appear similar. 2. Small bilateral pleural effusions. 3. Stable cardiomegaly. ACT 112: Negative or not required by law. Electronically signed by: Ayo Sage M.D. 10/17/2020 1:53 PM Discharge Plan Visit Data Chief Complaint: Shortness of Breath/Dyspnea Stated Complaint: SOB ED Provider: Miguel Ángel Donovan Discharge Problem: SOB (shortness of breath), CHF (congestive heart failure), Anasarca Patient Disposition: Admitted As Inpatient Discharge Instructions Interventions: ED Discharge Assessment Last Done: 10/17/20 17:51
[2020-10-17 13:49] LABS: Basophils # (auto) 0.02 K/uL (0-0.2); Basophils % (auto) 0.3 %; Eosinophils # (auto) 0.11 K/uL (0-0.5); Eosinophils % (auto) 1.5 %; Hematocrit (blood only) 28.3 % (42-52); Hemoglobin 8.6 g/dL (14.0-18.0); Immature Granulocytes # (auto) 0.01 K/uL (0.00-0.02); Immature Granulocytes % (auto) 0.1 %; Lymphocytes # (auto) 0.82 K/uL (1.2-3.4); Lymphocytes % (auto) 10.9 %; Mean Corpuscular Hemoglobin 29.2 pg (25-34); Mean Corpuscular Hgb Conc 30.4 g/dL (32-36); Mean Corpuscular Volume 95.9 fL (80-100); Mean Platelet Volume 12.5 fL (7.4-10.4); Monocytes # (auto) 0.48 K/uL (0.11-0.59); Monocytes % (auto) 6.4 %; Neutrophils # (auto) 6.11 K/uL (1.4-6.5); Neutrophils % (auto) 80.8 %; Platelet Count 216 K/uL (130-400); RDW Coefficient of Variation 19.6 % (11.5-14.5); RDW Standard Deviation 68.2 fL (36.4-46.3); Red Blood Count 2.95 M/uL (4.7-6.1); White Blood Count 7.55 K/uL (4.8-10.8)
--- NOTE | 2020-10-17 13:54 | XRay Report ---
XR chest 1V portable CLINICAL HISTORY: Dyspnea COMPARISON STUDY: Chest CT August 19, 2020. Chest radiograph August 20, 2020. FINDINGS: Note is made of median sternotomy wires, a left subclavian biventricular pacer/AICD and pro sthetic aortic and mitral valves. Marked cardiomegaly is again noted. There is no pneumothorax. There are small bilateral pleural effusions. Interstitial thickening and bilateral opacities are noted. IMPRESSION: 1. Interstitial thickening and bilateral opacities. Pulmonary edema is favored however an infectious process could appear similar. 2. Small bilateral pleural effusions. 3. Stable cardiomegaly. ACT 112: Negative or not required by law. Electronically signed by: Ayo Sage M.D. 10/17/2020 1:53 PM
[2020-10-17 14:01] LABS: INR 1.3 (0.9-1.1); Partial Thromboplastin Time 26.8 Seconds (21.0-31.0); Prothrombin Time 12.7 Seconds (9.0-12.0)
[2020-10-17 14:07] LABS: Albumin Level 2.4 gm/dl (3.4-5.0); BUN Creatinine Ratio 22.6 (10-20); Calcium 8.5 mg/dl (8.5-10.1); Creatinine Clr Calc Pharmacy 24.1 ml/min; Est GFR (African American) 20.5 ml/min; Est GFR (Non-African American) 17.7 ml/min; Magnesium 2.1 mg/dl (1.8-2.4); Potassium 4.6 mmol/L (3.5-5.1)
[2020-10-17 14:20] LABS: Albumin Globulin Ratio 0.6 (0.9-2); Bilirubin,Total 0.7 mg/dl (0.2-1); Globulin 4.2 gm/dl (2.5-4.0); Total Protein 6.6 gm/dl (6.4-8.2); Troponin I 0.046 ng/ml (0-0.045)
[2020-10-17] MEDS ORDERED: FUROSEMIDE 40 MG/4 ML VIAL IV STA (14:32)
--- NOTE | 2020-10-17 14:51 | History & Physical Report ---
Date of Service October 17, 2020 Assessment & Plan (1) Acute on chronic systolic heart failure: (2) Anasarca: (3) Acute kidney injury: (4) Diabetes mellitus, type 2: (5) Weakness: (6) OBED on CPAP: (7) Hypertension: (8) Hyperlipidemia: Plan: Discussed with patient goals of care - his main goal at this point is comfort and he prefers limited aggressive measures. - IV diuresis - Consult nephrology due to JUAN - Consult palliative care - pt considering hospice - Follow labs with electrolyte repletion as needed - CPAP at night for OBED - Pt with increased O2 demand at present - has been on 2 liters outpatient but currently requiring 4 L. Will titrate as needed for comfort/to maintain sats - Insulin sliding scale, accuchecks, diabetic diet - Fall precautions - Daily weights, Is and Os - Pt was previously on chronic anticoagulation with warfarin and was discharged on this in August. However, it is no longer on his medication and pt cannot recall if he is still taking. INR today is 1.3. Will start subQ heparin for DVT prophylaxis but will need to clarify if is to remain on anticoagulation therapy moving forward. Pt seen and reviewed with collaborating physician, Dr. Paredes. Plan of care discussed and as outlined above. Sukhdeep Neri PA-C History of Present Illness Chief Complaint: Dyspnea on exertion and weakness Primary Care Provider: [facility] This is a 74 y/o male with a PMH of ischemic cardiomyopathy, CAD with history of CABG x1 and angioplasty, biventricular AICD in place, chronic HFrEF with diastolic dysfunction, history of aortic valve and mitral valve replacements, PAF previously on chronic AC with warfarin, HTN, dyslipidemia, OBED on CPAP, insulin-dependent T2DM, CKD, depression, and GERD who presents to ED due to progressive dyspnea and peripheral edema. Pt was recently admitted 08/16-08/31/20 with acute on chronic systolic heart failure and JUAN on CKD with cardiorenal sy ndrome. Initially required BiPAP, Lasix gtt, and dobutamine. He was discharged on oxygen at 2-3 L. Discharged to [facility] for rehab and due to inability to live alone safely. Since being there, pt reports that he initially did okay with some progress in physical therapy and a stable oxygen requirement of 2 liters. However, over the past few weeks, he has noticed increased peripheral edema. Over the past week, he has noted progressive dyspnea on exertion although he feels like his breathing at rest is at baseline. He has been evaluated multiple times at [facility] but initially was refusing hospitalization because he wanted to talk to his cardiology provider, Bryson Michelle PA-C tomorrow at his appointment about his treatment plan. However, today, he fell twice and was finally agreeable to transport to the ED and possible admission. Currently, he reports his breathing is stable at rest but he does become dyspneic with prolonged conversation or going to the bathroom. He denies chest pain, palpitations, dizziness, N/V or syncope. He did have two falls today related to generalized weakness, but worse in his lower extremities. He has had an 18 lb wt gain since last week per the SNF notes. Allergies Allergy/AdvReac Type Severity Reaction Status Date / Time No Known Allergies Allergy Verified 10/17/20 14:44 Home Medications Medication Instructions Recorded Confirmed Type albuterol sulfate 90 mcg/actuation 2 puff INHALATION Q6H PRN 12/07/19 10/17/20 History aerosol inhaler ascorbic acid (vitamin C) 500 mg 500 mg PO BIDM 12/07/19 10/17/20 History chewable tablet (Vitamin C) clopidogrel 75 mg tablet 75 mg PO QAM 12/07/19 10/17/20 History docusate sodium 100 mg capsule 100 mg PO BIDM 12/07/19 10/17/20 History nitroglycerin 0.4 mg sublingual 0.4 mg SUBLINGUAL DIRECTED PRN 12/07/19 10/17/20 History tablet omeprazole 20 mg capsule,delayed 20 mg PO DAILY 12/07/19 10/17/20 History release atorvastatin 80 mg tablet 80 mg PO HS 12/30/19 10/17/20 History cyanocobalamin (vitamin B-12) 1,000 mcg IM MONTHLY 12/30/19 10/17/20 History 1,000 mcg/mL injection solution magnesium oxide 400 mg PO DAILY 12/30/19 10/17/20 History duloxetine 20 mg capsule,delayed 20 mg PO QAM 02/12/20 10/17/20 History release cholecalciferol (vitamin D3) 125 125 mcg PO Q2D 07/14/20 10/17/20 History mcg (5,000 unit) tablet (Vitamin D3) insulin aspart U-100 100 unit/mL 8 unit SUBCUT AC #15 ml 07/25/20 10/17/20 Rx (3 mL) subcutaneous pen (Novolog Flexpen U-100 Insulin aspart) amiodarone 200 mg tablet 200 mg PO DAILY #30 tab 08/31/20 10/17/20 Rx acetaminophen 325 mg tablet 650 mg PO Q6H PRN 10/17/20 10/17/20 History (Tylenol) gabapentin 100 mg capsule 100 mg PO AMHS 10/17/20 10/17/20 History insulin degludec 100 unit/mL (3 10 unit SUBCUT QAM 10/17/20 10/17/20 History mL) subcutaneous pen (Tresiba FlexTouch U-100 insulin) ipratropium 0.5 mg-albuterol 3 mg 3 ml INHALATION QID 10/17/20 10/17/20 History (2.5 mg base)/3 mL nebulization soln isosorbide mononitrate 30 mg 30 mg PO QAM 10/17/20 10/17/20 History tablet,extended release 24 hr magnesium hydroxide 400 mg/5 mL 30 ml PO DAILY PRN 10/17/20 10/17/20 History oral suspension (Milk of Magnesia) metolazone 2.5 mg tablet 2.5 mg PO BID 10/17/20 10/17/20 History metoprolol succinate 25 mg 12.5 mg PO DAILY 10/17/20 10/17/20 History tablet,extended release 24 hr potassium chloride 20 mEq 20 meq PO TIDM 10/17/20 10/17/20 History tablet,extended release torsemide 20 mg tablet 40 mg PO BIDM 10/17/20 10/17/20 History tramadol 50 mg tablet 50 - 100 mg PO Q6H PRN 10/17/20 10/17/20 History Past Med/Surg History Medical History Acute respiratory failure with hypoxia CAD (coronary artery disease) 07/2018: coronary artery bypass grafting x1 with reverse saphenous vein from aorta to right coronary artery via endoscopic saphenous vein harvesting; PCI to mid LAD with RIZWAN Chronic HFrEF (heart failure with reduced ejection fraction) Chronic kidney disease CKD (chronic kidney disease) stage 4, GFR 15-29 ml/min Diabetes mellitus, type 2 GERD (gastroesophageal reflux disease) History of ventricular fibrillation Hyperlipidemia Hypertension OBED on CPAP PAF (paroxysmal atrial fibrillation) Palliative care encounter Pernicious anemia POLST (Physician Orders for Life-Sustaining Treatment) Weakness Surgical History H/O aortic valve replacement Status post bioprosthetic AVR in 2004 Aortic valve prosthesis stenosis and mitral regurgitation requiring redo sternotomy jul 21 2013 with redo AVR and subsequent MVR. H/O mitral valve replacement History of appendectomy History of cardiac cath History of colonoscopy History of coronary artery bypass graft x 1 coronary artery bypass grafting x1 with reverse saphenous vein from aorta to right coronary artery via endoscopic saphenous vein harvesting. History of heart artery stent History of heart valve replacement ICD (implantable cardioverter-defibrillator) in place Family History Father Heart disease [place] @ age 64 Mother , age 34, stomach ca Cancer Social History (Updated 10/17/20 @ 15:56 by Aminata Neri PA-C) Smoking Status: Never smoker Second Hand Exposure: No; Hx Alcohol Use: Yes Hx Substance Use: No Preferred Language: Romanian Communication Ability: Effective Graduate Student Required: No Beliefs That Will Affect Care: None marital status: Single Current Living Situation: Longterm current occupation: retired Other Information That Helps Us Care for You: No Feels Safe at Home: Yes Assistive Devices: Oxygen - Continuous and Walker Review of Systems Review of Systems: All systems reviewed & are unremarkable except as noted in HPI & below Constitutional: + fatigue, + weakness and + weight gain; no fever and no chills Eyes: no diplopia and no worsening vision Ear, Nose, Mouth, Throat: no nasal congestion, no nasal discharge and no sore throat Respiratory: + cough (productive of white sputum); no hemoptysis and no wheezing Cardiovascular: as per Subjective / HPI, + dyspnea on exertion, + orthopnea and + edema; no paroxysmal nocturnal dyspnea and no syncope Gastrointestinal: no abdominal pain, no nausea, no vomiting, no diarrhea/loose stools and no blood in stools Genitourinary: + urinary frequency; no dysuria or no hematuria Musculoskeletal: no back pain and no neck pain Integumentary: no rash and no yellowing of the skin Neurologic: + falls and + generalized weakness; no seizure-like activity, no headache(s) and no confusion Psychiatric: no depression, no anxiety and no confusion Physical Exam Constitutional: well developed and well nourished; no acute distress Eyes: + anicteric sclerae; no corneal abnormality Neck: trachea midline Respiratory: no respiratory distress and no labored breathing Auscultation: + diminished lung sounds and + rales (left > right base); no wheezes Cardiovascular: Rate/Rhythm: regular rate and regular rhythm Heart Sounds: no gallop and no cardiac rub Vessels: radial pulses present Extremities: + edema (3+ pitting edema in LE, 2+ in LUE, 1+ in RUE) Gastrointestinal (Abdomen): Inspection/Auscultation: normal bowel sounds; abdomen not distended Percussion/Palpation: abdomen soft; abdomen nontender Musculoskeletal: Head/Neck/Chest: normocephalic and head atraumatic; + neck not supple Skin: +areas of ecchymosis on right > left UE Neurologic: moves all extremities; not confused Psychiatric: A+Ox3, euthymic affect Results & Data Results & Data ([facility]) Vital Signs (Past 12 Hours) Vital Signs Temp Pulse Resp BP Pulse Ox 10/17/20 14:20 69 17 108/76 100 10/17/20 14:10 71 17 100 10/17/20 14:02 70 19 100 10/17/20 13:27 69 22 106/66 100 10/17/20 13:21 67 24 100 10/17/20 13:00 69 25 H 86/62 L 100 10/17/20 12:44 36.4 C L 72 25 H 107/37 L 100 Laboratory Results Laboratory Results - last 24 hr 10/17/20 10/17/20 10/17/20 13:32 13:32 13:35 WBC 7.55 RBC 2.95 L Hgb 8.6 L Hct 28.3 L MCV 95.9 MCH 29.2 MCHC 30.4 L RDW Std Deviation 68.2 H RDW Coeff of Rosio 19.6 H Plt Count 216 MPV 12.5 H Immature Gran % (Auto) 0.1 Neut % (Auto) 80.8 Lymph % (Auto) 10.9 Crenshaw % (Auto) 6.4 Eos % (Auto) 1.5 Baso % (Auto) 0.3 Neut # (Auto) 6.11 Lymph # (Auto) 0.82 L Crenshaw # (Auto) 0.48 Eos # (Auto) 0.11 Baso # (Auto) 0.02 Immature Gran # (Auto) 0.01 PT INR APTT PTT Ratio Sodium Potassium Chloride Carbon Dioxide Anion Gap BUN Creatinine Est Cr Clr Drug Dosing Est GFR ( Amer) Est GFR (Non-Af Amer) BUN/Creatinine Ratio Glucose Calcium Magnesium Total Bilirubin AST ALT Alkaline Phosphatase Troponin I NT-Pro-B Natriuret Pep Total Protein Albumin Globulin Albumin/Globulin Ratio COVID-19 Eval Order Covid19 at [facility] SARS-CoV-2 (PCR) Pending 10/17/20 10/17/20 13:35 13:35 WBC RBC Hgb Hct MCV MCH MCHC RDW Std Deviation RDW Coeff of Rosio Plt Count MPV Immature Gran % (Auto) Neut % (Auto) Lymph % (Auto) Crenshaw % (Auto) Eos % (Auto) Baso % (Auto) Neut # (Auto) Lymph # (Auto) Crenshaw # (Auto) Eos # (Auto) Baso # (Auto) Immature Gran # (Auto) PT 12.7 H INR 1.3 H APTT 26.8 PTT Ratio 1.0 Sodium 136 Potassium 4.6 Chloride 98 Carbon Dioxide 29 Anion Gap 9.0 BUN 74 H Creatinine 3.28 H Est Cr Clr Drug Dosing 24.1 Est GFR ( Amer) 20.5 Est GFR (Non-Af Amer) 17.7 BUN/Creatinine Ratio 22.6 H Glucose 68 L Calcium 8.5 Magnesium 2.1 Total Bilirubin 0.7 AST 18 ALT 17 Alkaline Phosphatase 108 Troponin I 0.046 H* NT-Pro-B Natriuret Pep 75803 H Total Protein 6.6 Albumin 2.4 L Globulin 4.2 H Albumin/Globulin Ratio 0.6 L COVID-19 Eval Order SARS-CoV-2 (PCR) Diagnostic Findings Chest X-ray 10/17/20 - IMPRESSION: 1. Interstitial thickening and bilateral opacities. Pulmonary edema is favored however an infectious process could appear similar. 2. Small bilateral pleural effusions. 3. Stable cardiomegaly. Medications Administered Discontinued Medications Furosemide (Furosemide 40 Mg/4 Ml Vial) 40 mg IV NOW STA Stop: 10/17/20 14:33 Last Admin: 10/17/20 15:03 Dose: 40 mg Documented by: [id number] Code Status & VTE Plan Code Status DNR/DNI Supervising Physician Co-Signing Physician Notes I saw this patient with the physician statistical assistant, I participated in the history, physical, review of systems, and physical exam. I reviewed the medications with the patient and the physician statistical assistant and helped reconcile the medications. I helped take a detailed family and social history as well. I formulated the assessment and plan personally with the physician statistical assistant and went over it with the patient. ROS-No Headache, No Visual Changes, No Nausea, No Vomiting, No Fever, No Chills, No Neck Pain or Stiffness, No Chest Pain, No Palpitations, No SOB, No SIERRA, No Cough, No Sputum, No Wheezing, No Abdominal Pain, No Diarrhea, No Hematemesis, No Hemoptysis, No Unexpected Weight Loss, No Flank pain, No Melena, No Hematochezia, No Frequency, No Urgency, No Burning, No Hematuria, No Rashes, No Diaphoresis. Appetite is decreased, +swelling Physical Exam Gen-AAO x 3, NAD, Afebrile, Conv dyspnea, Obese Head-NCAT, EOMI, PERRLA, Anicteric Sclera, No Posterior Pharyngeal Erythema Neck-Supple, No JVD, No Thyromegaly, No Masses, No LAD, No Bruits Lungs-+Rales, No Rhonchi, No Wheezing, No Crepitus Chest-No S4, +S1, +S2, No S3, No Murmurs, No Rubs, No Gallops, No Ectopy Abdomen-Soft, Bowel Sounds Present, Non Tender, Non Distended, No Hepatomegaly, No Splenomegaly, No Palpable Masses, No Rebound, No Rigidity, No Guarding Musculoskeletal-Full Range of Motion Bilaterally, No CVAT Extremities-No Cyanosis, No Clubbing, Anasarca Nuero-Cranial Nerves II-XII grossly intact, Motor WNL, DTRs WNL, Strength WNL, Non Focal Psych-Normal Mood
[2020-10-17 15:26] LABS: Appearance Urine Cloudy (Clear); Bacteria Urine Automated 3+ (Negative); Bilirubin Urine Negative (Negative); Blood Urine Trace (Negative); Color Urine Yellow; Glucose Urine UA Negative (Negative); Ketones Urine Negative (Negative); Leukocyte Esterase Urine 3+ (Negative); Nitrite Urine Negative (Negative); Protein Urine 1+ (Negative); RBC Urine Automated 0-4 /hpf (0-4); Specific Gravity Urine 1.013 (1.000-1.030); Urobilinogen Urine Negative (Negative); WBC Urine Automated >30 /hpf (0-5)
--- NOTE | 2020-10-17 17:53 | Electrocardiogram Report ---
Test Reason : Blood Pressure : / mmHG Vent. Rate : 068 BPM Atrial Rate : 069 BPM P-R Int : 000 ms QRS Dur : 160 ms QT Int : 476 ms P-R-T Axes : 000 -88 066 degrees QTc Int : 506 ms Ventricular-paced rhythm with occasional Premature ventricular complexes Abnormal ECG When compared with ECG of 20-AUG-2020 06:26, Premature ventricular complexes are now Present Vent. rate has decreased BY 3 BPM Confirmed by Ethan Casper ([id number]) on 10/17/2020 5:52:55 PM Referred By: [facility] Confirmed By:Ethan Casper
[2020-10-17] MEDS ORDERED: GLUCAGON FOR INJ 1 MG VIAL SQ PRN (18:29)
[2020-10-17] MEDS ORDERED: ACETAMINOPHEN 325 MG TAB PO PRN (18:29)
[2020-10-17] MEDS ORDERED: GLUCOSE 10 TABS/TUBE PO PRN (18:29)
[2020-10-17] MEDS ORDERED: CARBOHYDRATES FOR HYPOGLYCEMIA PO PRN (18:29)
[2020-10-17] MEDS: INSULIN ASPART 100 UNITS/ML 3 ML PEN SC SCH ×2 (19:17→21:27)
[2020-10-17] MEDS: ALBUT/IPRATROP 3MG/0.5MG NEB 3 ML VIAL INH SCH (19:44)
[2020-10-17] MEDS: ATORVASTATIN 40 MG TAB PO SCH (20:59)
[2020-10-17] MEDS: FUROSEMIDE 60 MG in SYRINGE 0 ML IV SCH (20:59)
[2020-10-17] MEDS: GABAPENTIN 100 MG CAP PO SCH (21:00)
[2020-10-17] MEDS ORDERED: FUROSEMIDE 40 MG/4 ML VIAL IV SCH (21:00)
[2020-10-17] MEDS: DEXTROSE 50% 50 ML SYRINGE IV PRN (21:31)
[2020-10-17] MEDS: HEPARIN SOD 5,000 UNIT/0.5 ML VIAL SQ SCH (22:17)
[2020-10-18] MEDS: INSULIN ASPART 100 UNITS/ML 3 ML PEN SC SCH ×5 (00:43→20:33)
[2020-10-18] MEDS: DEXTROSE 50% 50 ML SYRINGE IV PRN (00:44)
[2020-10-18] MEDS ORDERED: DEXTROSE 5% 1,000 ML IV SCH (01:00)
[2020-10-18] MEDS: GLUCOSE 40% GEL 15 GM TUBE PO PRN ×2 (04:11→04:41)
[2020-10-18] MEDS: HEPARIN SOD 5,000 UNIT/0.5 ML VIAL SQ SCH ×3 (06:30→21:36)
[2020-10-18] MEDS: ALBUT/IPRATROP 3MG/0.5MG NEB 3 ML VIAL INH SCH ×4 (06:56→20:28)
[2020-10-18 06:58] LABS: INR 1.3 (0.9-1.1); Prothrombin Time 12.7 Seconds (9.0-12.0)
[2020-10-18] MEDS: METOPROLOL SUCC 25MG EXT REL TAB PO SCH (08:27)
[2020-10-18] MEDS: DULoxetine HCL 20 MG CAP PO SCH (08:27)
[2020-10-18] MEDS: CLOPIDOGREL BISULFATE 75 MG TAB PO SCH (08:27)
[2020-10-18] MEDS: POTASSIUM CHLORIDE CRTAB 20 MEQ TABCR PO SCH ×3 (08:27→17:05)
[2020-10-18] MEDS: GABAPENTIN 100 MG CAP PO SCH ×2 (08:27→20:31)
[2020-10-18] MEDS: DOCUSATE SODIUM 100 MG CAP PO SCH ×2 (08:27→17:05)
[2020-10-18] MEDS: MAGNESIUM OXIDE 400 MG TAB PO SCH (08:28)
[2020-10-18] MEDS: AMIODARONE 200 MG TAB PO SCH (08:28)
[2020-10-18] MEDS: CHOLECALCIFEROL 1,000 UNITS 25 MCG TAB PO SCH (08:28)
[2020-10-18] MEDS: ISOSORBIDE MONO EXTENDED REL 30 MG TABCR PO SCH (08:28)
[2020-10-18] MEDS: FUROSEMIDE 60 MG in SYRINGE 0 ML IV SCH (08:36)
[2020-10-18 09:46] LABS: Calcium 8.2 mg/dl (8.5-10.1); Creatinine Clr Calc Pharmacy 27.3 ml/min; Est GFR (African American) 20.7 ml/min; Est GFR (Non-African American) 17.9 ml/min; Potassium 4.3 mmol/L (3.5-5.1)
[2020-10-18 09:47] LABS: Basophils # (auto) 0.06 K/uL (0-0.2); Eosinophils # (auto) 0.33 K/uL (0-0.5); Eosinophils % (auto) 5.2 %; Hematocrit (blood only) 27.5 % (42-52); Hemoglobin 8.6 g/dL (14.0-18.0); Immature Granulocytes # (auto) 0.11 K/uL (0.00-0.02); Immature Granulocytes % (auto) 1.7 %; Lymphocytes % (auto) 15.8 %; Mean Corpuscular Hemoglobin 29.4 pg (25-34); Mean Corpuscular Hgb Conc 31.3 g/dL (32-36); Mean Corpuscular Volume 93.9 fL (80-100); Mean Platelet Volume 12.4 fL (7.4-10.4); Monocytes # (auto) 0.62 K/uL (0.11-0.59); Monocytes % (auto) 9.8 %; Neutrophils # (auto) 4.19 K/uL (1.4-6.5); Neutrophils % (auto) 66.5 %; Platelet Count 208 K/uL (130-400); RDW Coefficient of Variation 19.4 % (11.5-14.5); RDW Standard Deviation 66.4 fL (36.4-46.3); Red Blood Count 2.93 M/uL (4.7-6.1); White Blood Count 6.31 K/uL (4.8-10.8)
[2020-10-18] MEDS: cefTRIAXone SODIUM 2,000 MG in DEXTROSE 5% 50 ML IV SCH (10:01)
[2020-10-18] MEDS: PANTOprazole 40 MG TAB PO SCH (10:01)
--- NOTE | 2020-10-18 11:07 | Cardiology Consultation ---
Date of Consultation October 18, 2020 Assessment & Plan (1) Acute on chronic systolic heart failure: (2) Cardiorenal syndrome with renal failure: (3) Valvular heart disease: (4) ICD (implantable cardioverter-defibrillator) battery depletion: (5) PAF (paroxysmal atrial fibrillation): I had a long discussion with the patient regarding his complex cardiovascular status with end-stage cardiomyopathy and recurrent heart failure. Patient required inotropic therapy as well as IV Lasix infusion during most recent hospitalization. His renal function, has again worsened. Clinical status improved with 2 doses of IV Lasix however anasarca is present. He understands that a prolonged hospitalization would again be necessary to improve his volume status. I discussed his poor prognosis from a cardiovascular standpoint. Patient wishes to proceed with continued conservative medical therapy and inpatient hospitalization at this time, however, would like to pursue palliative care and hospice. Recommend continuing IV Lasix in addition to other cardiovascular medicines as previously ordered. I discussed warfarin anticoagulation with the patient. As he is considering hospice care at this time, we will not restart anticoagulation. In regard to his ICD battery depletion, arrangements will not be made for generator change if patient pursues hospice care. If he changes CODE STATUS and plan of care definitively, ICD therapies can be deactivated at that time. History of Present Illness Reason for Consultation: CHF Requesting Physician: Dr. Benedict Attending Physician: Delta Benedict MD History of Present Illness Complex 74-year-old patient presented emergency department from [facility] due to progressive dyspnea on exertion, and weight gain. Patient initially declining inpatient evaluation. Recently hospitalized in early August due to acute decompensated systolic heart failure. Treated with IV dobutamine and Lasix infusion. Patient recovered clinically and renal function improved. He was evaluated by palliative care during hospitalization with plans to consider hospice with any further or future decompensations of his cardiovascular status. Patient treated with warfarin due to paroxysmal atrial fibrillation. He was discharged in early August with plans for continued anticoagulation, however, per review of records, there is an INR recorded 09/17/20 of 9.9. Follow-up INR performed 09/19/2020 5.0. It appears warfarin was discontinued while residing at [facility]. Patient received 2 doses of IV Lasix since admission. His fluid balance is negative approximately 1300 cc. Respiratory status has improved. Consuming his midday meal. No conversational dyspnea. Notes no orthopnea and progressive diffuse edema over the past few weeks. Nursing reports audible tones from defibrillator. ICD interrogation performed 09/27/20 reporting IMPLEMENTATION MANAGER as of 08/21/2020. Allergies Allergy/AdvReac Type Severity Reaction Status Date / Time No Known Allergies Allergy Verified 10/17/20 14:44 Home Medications Medication Instructions Recorded Confirmed Type albuterol sulfate 90 mcg/actuation 2 puff INHALATION Q6H PRN 12/07/19 10/17/20 History aerosol inhaler ascorbic acid (vitamin C) 500 mg 500 mg PO BIDM 12/07/19 10/17/20 History chewable tablet (Vitamin C) clopidogrel 75 mg tablet 75 mg PO QAM 12/07/19 10/17/20 History docusate sodium 100 mg capsule 100 mg PO BIDM 12/07/19 10/17/20 History nitroglycerin 0.4 mg sublingual 0.4 mg SUBLINGUAL DIRECTED PRN 12/07/19 10/17/20 History tablet omeprazole 20 mg capsule,delayed 20 mg PO DAILY 12/07/19 10/17/20 History release atorvastatin 80 mg tablet 80 mg PO HS 12/30/19 10/17/20 History cyanocobalamin (vitamin B-12) 1,000 mcg IM MONTHLY 12/30/19 10/17/20 History 1,000 mcg/mL injection solution magnesium oxide 400 mg PO DAILY 12/30/19 10/17/20 History duloxetine 20 mg capsule,delayed 20 mg PO QAM 02/12/20 10/17/20 History release cholecalciferol (vitamin D3) 125 125 mcg PO Q2D 07/14/20 10/17/20 History mcg (5,000 unit) tablet (Vitamin D3) insulin aspart U-100 100 unit/mL 8 unit SUBCUT AC #15 ml 07/25/20 10/17/20 Rx (3 mL) subcutaneous pen (Novolog Flexpen U-100 Insulin aspart) amiodarone 200 mg tablet 200 mg PO DAILY #30 tab 08/31/20 10/17/20 Rx acetaminophen 325 mg tablet 650 mg PO Q6H PRN 10/17/20 10/17/20 History (Tylenol) gabapentin 100 mg capsule 100 mg PO AMHS 10/17/20 10/17/20 History insulin degludec 100 unit/mL (3 10 unit SUBCUT QAM 10/17/20 10/17/20 History mL) subcutaneous pen (Tresiba FlexTouch U-100 insulin) ipratropium 0.5 mg-albuterol 3 mg 3 ml INHALATION QID 10/17/20 10/17/20 History (2.5 mg base)/3 mL nebulization soln isosorbide mononitrate 30 mg 30 mg PO QAM 10/17/20 10/17/20 History tablet,extended release 24 hr magnesium hydroxide 400 mg/5 mL 30 ml PO DAILY PRN 10/17/20 10/17/20 History oral suspension (Milk of Magnesia) metolazone 2.5 mg tablet 2.5 mg PO BID 10/17/20 10/17/20 History metoprolol succinate 25 mg 12.5 mg PO DAILY 10/17/20 10/17/20 History tablet,extended release 24 hr potassium chloride 20 mEq 20 meq PO TIDM 10/17/20 10/17/20 History tablet,extended release torsemide 20 mg tablet 40 mg PO BIDM 10/17/20 10/17/20 History tramadol 50 mg tablet 50 - 100 mg PO Q6H PRN 10/17/20 10/17/20 History Patient History Medical History Acute respiratory failure with hypoxia CAD (coronary artery disease) 07/2018: coronary artery bypass grafting x1 with reverse saphenous vein from aorta to right coronary artery via endoscopic saphenous vein harvesting; PCI to mid LAD with RIZWAN Chronic HFrEF (heart failure with reduced ejection fraction) Chronic kidney disease CKD (chronic kidney disease) stage 4, GFR 15-29 ml/min Diabetes mellitus, type 2 GERD (gastroesophageal reflux disease) History of ventricular fibrillation Hyperlipidemia Hypertension OBED on CPAP PAF (paroxysmal atrial fibrillation) Palliative care encounter Pernicious anemia POLST (Physician Orders for Life-Sustaining Treatment) Weakness Surgical History H/O aortic valve replacement Status post bioprosthetic AVR in 2004 Aortic valve prosthesis stenosis and mitral regurgitation requiring redo sternotomy jul 21 2013 with redo AVR and subsequent MVR. H/O mitral valve replacement History of appendectomy History of cardiac cath History of colonoscopy History of coronary artery bypass graft x 1 coronary artery bypass grafting x1 with reverse saphenous vein from aorta to right coronary artery via endoscopic saphenous vein harvesting. History of heart artery stent History of heart valve replacement ICD (implantable cardioverter-defibrillator) in place Family History Father Heart disease [place] @ age 64 Mother , age 34, stomach ca Cancer Social History Smoking Status: Never smoker Second Hand Exposure: No; Hx Alcohol Use: Yes Hx Substance Use: No Preferred Language: Finnish Communication Ability: Effective Hand Worker Required: No Beliefs That Will Affect Care: None marital status: Single Current Living Situation: [facility] current occupation: retired How many Children do You have: 0 Other Information That Helps Us Care for You: No Feels Safe at Home: Yes Assistive Devices: Oxygen - Continuous and Walker Review of Systems Review of Systems: All systems reviewed & are unremarkable except as noted in Subjective Physical Exam Constitutional: well developed, well nourished and + morbidly obese Respiratory: normal respiratory effort; no respiratory distress, no labored breathing and no retractions Auscultation: + diminished lung sounds (Bases bilateral) and + rales (Bases bilateral); no rhonchi and no wheezes Cardiovascular: Rate/Rhythm: regular rate and regular rhythm Heart Sounds: normal S1, normal S2 and + murmur (1/6 systolic ejection murmur heard best at the base.) Vessels: + JVD (Difficult to assess due to body habitus); no carotid bruit Extremities: + edema (Anasarca) Gastrointestinal (Abdomen): Inspection/Auscultation: abdomen normal to inspection, normal bowel sounds and + abdominal edema; abdomen not distended Percussion/Palpation: abdomen soft; abdomen nontender, no guarding and abdomen not rigid Neurologic: moves all extremities; no focal motor deficits Motor/Sensory: no tremor Psychiatric: A+Ox3, euthymic affect Results & Data ([facility]) Vital Signs (Past 12 Hours) Vital Signs Temp Pulse Pulse Resp BP Pulse Ox 10/18/20 10:52 83 18 95 10/18/20 10:43 36.3 C L 69 17 108/63 97 10/18/20 07:24 66 10/18/20 07:08 36.5 C 64 18 104/60 100 07/29/21 06:56 89 89 19 85 L 07/29/21 03:40 36.4 C L 65 18 93/63 L 96 10/18/20 03:18 72 19 92 10/17/20 23:06 36.4 C L 66 18 100/68 91 Diagnostic Findings ECG on admission demonstrates biventricular paced rhythm. And occasional AV pacing. 2D echocardiogram performed 08/19/2020 demonstrates severe global hypokinesis left ventricle with an estimated ejection fraction of 15-20%. Estimated pulmonary artery systolic pressure of 69 mmHg on BiPAP.
--- NOTE | 2020-10-18 12:04 | Consultation Report ---
NEPHROLOGY CONSULTATION DATE OF CONSULTATION: 10/18/2020 REASON FOR CONSULTATION: [id number] renal failure. HISTORY OF PRESENT ILLNESS: The patient is a 74-year-old male with very advanced ischemic cardiomyop athy with an EF of around 15% with biventricular AICD in place. He also has progressively worsening CKD. Most recent creatinine outpatient was in the 2 range. On 10/08, it was 2.45. He presented to the hospital yesterday from the rehab center because of extreme weakness. He essentially slumped ove r after he was too weak to stand. He does not recall having a syncopal episode. He is in full anasa rca at this time with massive edema. According to the patient, he was taking his prescribed diuretic s, but kept on getting worse with the swelling and he has never been this swollen. He is gradually l eaning towards comfort care with palliative medicine who is already on board with the patient care. Rohit gaona is currently written to have Lasix 60 IV b.i.d. The patient was awake and alert and was able to gi ve me a pretty detailed account of his medical problem. His blood pressure is running somewhat low a s expected. Creatinine on admission was in the 3s, and this morning it is still about the same at 3. 25. BUN is somewhat elevated at 75. BNP is very elevated. Chest x-ray shows pulmonary edema. REVIEW OF SYSTEMS: As detailed in HPI. Positive review of systems include increasing weakness, fati marcie, increasing edema, weight gain and shortness of breath. Appetite is poor, but denies nausea, vom iting, diarrhea, abdominal pain, or chest pain. Denies urinary complaint. A total of 12 systems are reviewed and negative. PAST MEDICAL AND SURGICAL HISTORY: Includes ischemic cardiomyopathy with an EF of around 15%, thakkar ry artery disease with history of CABG x1, angioplasty, biventricular AICD, chronic systolic and retana tolic heart failure, aortic valve and mitral valve replacement. Paroxysmal atrial fibrillation, prev iously on Coumadin, but not currently. Hypertension, dyslipidemia. Obstructive sleep apnea, on CPAP . Insulin-dependent type 2 diabetes, chronic kidney disease stage IV with more recent baseline creati nine in the mid 2s and gradually worsening. Depression, GERD, appendicectomy. FAMILY HISTORY: Negative for renal disease or dialysis. SOCIAL HISTORY: Never smoked. No alcohol. He is currently getting rehabilitation at the [facility]. He is single. He has to use oxygen as well as walker continuously. MEDICATIONS AT HOME: Reviewed in detail and is as per the reconciliation list. He was getting metol azone 2.5 twice daily as well as torsemide 40 mg twice daily as an outpatient. ALLERGIES: Allergy list was reviewed and no allergy. PHYSICAL EXAMINATION: GENERAL: Elderly white male who is not in any major overt respiratory distress in resting position; however, he does look weak and chronically ill. He is awake, alert, oriented x3. VITAL SIGNS: Blood pressure 108/63, pulse rate 83, temperature 36.3, and 95% on 2 liters nasal cannu la. HEENT: Mucous membrane is moist. NECK: Supple. Jugular venous distention present. CHEST: Bilaterally very diminished breath sounds, poor quality examination limiting accurate finding s. CARDIOVASCULAR: S1 and S2 regular. Soft systolic murmur heard. ABDOMEN: Soft, nontender, obese with abdominal wall edema. EXTREMITIES: Show anasarca bilaterally. LABORATORY TEST: Reviewed. Baseline creatinine in the mid 2s, current creatinine 3.25. No electro lyte abnormality. BUN is 75. Chest x-ray shows pulmonary edema. BNP is 31,000. Urine dipstick don e yesterday showed some trace blood, trace protein. ASSESSMENT AND PLAN: A 74-year-old male with what appears to be like a terminal cardiac disease at t his time with a very, very low ejection fraction and associated chronic kidney disease. I have been consulted for acute renal failure on background chronic kidney disease. Acute renal failure: The acute component could be cardiorenal syndrome versus superimposed acute tub ular necrosis in a patient who already has a preexisting chronic kidney disease IV from combination o f longstanding diabetes and very poor ejection fraction. He is massively edematous/anasarca at this time and would benefit to some extent with the diuretics. I did explain to him that this is more of a symptom management, but not a definitive treatment of his underlying cardiac disease. He is thinki raymon about doing palliative medicine with comfort care. However, as of now, he is not on comfort care. RECOMMENDATIONS: 1. We will use Lasix drip at 15 mg per hour. 2. Metolazone 5 mg now and daily. 3. If he decides to do comfort care, we will switch over to torsemide 100 twice daily. 4. Even if he does comfort care, I think some diuresis to lower his excessive fluid intake can be re garded as comfort measure. 5. He will not be a candidate for dialysis and he does not want it anyway. 6. Cardiology consult is pending, but will be highly appreciated. 7. Case was discussed with the primary team. Job ID: [id number]
--- NOTE | 2020-10-18 12:57 | Palliative Care Consultation ---
Date of Consultation October 18, 2020 Assessment & Plan (1) SOB (shortness of breath): with advanced heart failure complicated by OBED and pulmonary hypertension. He does get some relief with O2. Monitor with diuresis. Could consider opioid for air hunger if symptoms are not relieved. (2) Palliative care encounter: I had a long talk with Mr. Durham about his illness and what his wishes were for his care. He does not recall completing POLST and initially tells me that while he would not want intubation in the event of cardiopulmonary arrest, he would want CPR. We discussed the fact that the likelihood of successful CPR with his condition and no intubation would be virtually nil. He has had firing of his ICD though he doesn't recall the experience. He understands that his prognosis is poor and had hoped to live until his 75th birthday next month. He is thinking that may not happen and tells me that if there is no chance for him to have a meaningful life or be able to get around independently, he would not want CPR. I asked him what brings him enjoyment and makes his life meaningful and he was not really able to answer that. We discussed the option on the POLST form about comfort measures only and whether he would want to have hospice support at the SNF and he felt that he would. He would like to consider this further and asked me to discuss this with his niece, Geraldine, who is his POA. Of note, he has been considering replacement of his ICD/pacer due to battery depletion. 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 I did call Geraldine on the phone but was not able to reach her. Palliative care will follow to assist with goals of care (3) CHF (congestive heart failure): (4) Cardiorenal syndrome with renal failure: (5) ICD (implantable cardioverter-defibrillator) battery depletion: (6) Pulmonary hypertension: (7) OBED (obstructive sleep apnea): History of Present Illness Reason for Consultation: goals of care Requesting Physician: Trisha Neri PAC Attending Physician: Delta Benedict MD History of Present Illness 74 yo gentleman with CAD and ischemic cardiomyopathy as well as diastolic dysfunction. He has and ICD which he reports has fired multiple times though he does not remember that happening. He also has a history of paroxysmal atrial fibrillation, diabetes, OBED,and CKD with JUAN on this admission. He had been hospitalized about six weeks ago for two weeks for heart failure and discharged to SNF. He was seen by palliative care on that admission and completed a POLST form which indicated DNR, comfort measures only. Per his H&P he had been resistant to returning to the hospital initially but had failed oral diuresis and had two falls so he was admitted for further management. He was hypoxic on admission with O2 requirement increased to 4L from his baseline of 2L. He also now has stage IV kidney disease with GFR of 17.9. He is awake and alert though he has some problems recalling previous events. He complains of dyspnea with exertion, even with conversation. Allergies Allergy/AdvReac Type Severity Reaction Status Date / Time No Known Allergies Allergy Verified 10/17/20 14:44 Home Medications Medication Instructions Recorded Confirmed Type albuterol sulfate 90 mcg/actuation 2 puff INHALATION Q6H PRN 12/07/19 10/17/20 History aerosol inhaler ascorbic acid (vitamin C) 500 mg 500 mg PO BIDM 12/07/19 10/17/20 History chewable tablet (Vitamin C) clopidogrel 75 mg tablet 75 mg PO QAM 12/07/19 10/17/20 History docusate sodium 100 mg capsule 100 mg PO BIDM 12/07/19 10/17/20 History nitroglycerin 0.4 mg sublingual 0.4 mg SUBLINGUAL DIRECTED PRN 12/07/19 10/17/20 History tablet omeprazole 20 mg capsule,delayed 20 mg PO DAILY 12/07/19 10/17/20 History release atorvastatin 80 mg tablet 80 mg PO HS 12/30/19 10/17/20 History cyanocobalamin (vitamin B-12) 1,000 mcg IM MONTHLY 12/30/19 10/17/20 History 1,000 mcg/mL injection solution magnesium oxide 400 mg PO DAILY 12/30/19 10/17/20 History duloxetine 20 mg capsule,delayed 20 mg PO QAM 02/12/20 10/17/20 History release cholecalciferol (vitamin D3) 125 125 mcg PO Q2D 07/14/20 10/17/20 History mcg (5,000 unit) tablet (Vitamin D3) insulin aspart U-100 100 unit/mL 8 unit SUBCUT AC #15 ml 07/25/20 10/17/20 Rx (3 mL) subcutaneous pen (Novolog Flexpen U-100 Insulin aspart) amiodarone 200 mg tablet 200 mg PO DAILY #30 tab 08/31/20 10/17/20 Rx acetaminophen 325 mg tablet 650 mg PO Q6H PRN 10/17/20 10/17/20 History (Tylenol) gabapentin 100 mg capsule 100 mg PO AMHS 10/17/20 10/17/20 History insulin degludec 100 unit/mL (3 10 unit SUBCUT QAM 10/17/20 10/17/20 History mL) subcutaneous pen (Tresiba FlexTouch U-100 insulin) ipratropium 0.5 mg-albuterol 3 mg 3 ml INHALATION QID 10/17/20 10/17/20 History (2.5 mg base)/3 mL nebulization soln isosorbide mononitrate 30 mg 30 mg PO QAM 10/17/20 10/17/20 History tablet,extended release 24 hr magnesium hydroxide 400 mg/5 mL 30 ml PO DAILY PRN 10/17/20 10/17/20 History oral suspension (Milk of Magnesia) metolazone 2.5 mg tablet 2.5 mg PO BID 10/17/20 10/17/20 History metoprolol succinate 25 mg 12.5 mg PO DAILY 10/17/20 10/17/20 History tablet,extended release 24 hr potassium chloride 20 mEq 20 meq PO TIDM 10/17/20 10/17/20 History tablet,extended release torsemide 20 mg tablet 40 mg PO BIDM 10/17/20 10/17/20 History tramadol 50 mg tablet 50 - 100 mg PO Q6H PRN 10/17/20 10/17/20 History Patient History Medical History Acute respiratory failure with hypoxia CAD (coronary artery disease) 07/2018: coronary artery bypass grafting x1 with reverse saphenous vein from aorta to right coronary artery via endoscopic saphenous vein harvesting; PCI to mid LAD with RIZWAN Chronic HFrEF (heart failure with reduced ejection fraction) Chronic kidney disease CKD (chronic kidney disease) stage 4, GFR 15-29 ml/min Diabetes mellitus, type 2 GERD (gastroesophageal reflux disease) History of ventricular fibrillation Hyperlipidemia Hypertension OBED on CPAP PAF (paroxysmal atrial fibrillation) Palliative care encounter Pernicious anemia POLST (Physician Orders for Life-Sustaining Treatment) Weakness Surgical History H/O aortic valve replacement Status post bioprosthetic AVR in 2004 Aortic valve prosthesis stenosis and mitral regurgitation requiring redo sternotomy jul 21 2013 with redo AVR and subsequent MVR. H/O mitral valve replacement History of appendectomy History of cardiac cath History of colonoscopy History of coronary artery bypass graft x 1 coronary artery bypass grafting x1 with reverse saphenous vein from aorta to right coronary artery via endoscopic saphenous vein harvesting. History of heart artery stent History of heart valve replacement ICD (implantable cardioverter-defibrillator) in place Family History Father Heart disease DC @ age 64 Mother , age 34, stomach ca Cancer Social History Smoking Status: Never smoker Second Hand Exposure: No; Hx Alcohol Use: Yes Hx Substance Use: No Preferred Language: Mongolian Communication Ability: Effective Supervisor Force Adjustment Required: No Beliefs That Will Affect Care: None marital status: Single Current Living Situation: [facility] current occupation: retired Other Information That Helps Us Care for You: No Feels Safe at Home: Yes Assistive Devices: CPAP, Oxygen - Continuous and Walker Review of Systems Review of Systems: [place] Symptom Assessment Scale Pain 0/3 Dyspnea 2/3 Fatigue 2/3 Anxiety 0/3 Drowsiness 0/3 Palliative Performance Score 30% Physical Exam Constitutional: + morbidly obese and comfortable Respiratory: dyspnea with conversation, using accessory muscles Cardiovascular: anasarca Neurologic: awake; no focal motor deficits and not confused Psychiatric: Orientation: oriented x 3 Results & Data ([facility]) Vital Signs (Past 12 Hours) Vital Signs Temp Pulse Pulse Resp BP Pulse Ox 10/18/20 10:52 83 18 95 10/18/20 10:43 97.3 F L 69 17 108/63 97 10/18/20 07:24 66 10/18/20 07:08 97.7 F 64 18 104/60 100 10/18/20 06:56 89 89 19 85 L 10/18/20 03:40 97.5 F L 65 18 93/63 L 96 10/18/20 03:18 72 19 92 PG Care Time/CCT Total # of Minutes Spent Total Time Spent: 80 Total Time Spent with Patient: Total time spent is greater than 50% in co ordination of care (as documented) at patient's floor/unit and/or counseling patient:POLST, code status, goals of care, hospice, symptom management Coding Level of Care Code 25782 Initial Inpt Care Lvl 3 Diagnoses SOB (shortness of breath) R06.02 Palliative care encounter Z51.5 CHF (congestive heart failure) I50.9 Cardiorenal syndrome with renal failure I13.10 ICD (implantable cardioverter-defibrillator) battery depletion Z45.02 Pulmonary hypertension I27.20 OBED (obstructive sleep apnea) G47.33
[2020-10-18] MEDS ORDERED: metOLazone 5 MG TABLET PO ONE (15:15)
[2020-10-18] MEDS: FUROSEMIDE 100 MG in DEXTROSE 5% 90 ML IV SCH ×2 (15:19→21:35)
--- NOTE | 2020-10-18 16:41 | Hospitalist Progress Note ---
Date of Service October 18, 2020 Assessment & Plan (1) Acute on chronic systolic heart failure: Plan: Acute on chronic systolic heart failure Chronic respiratory failure with hypoxia- secondary to above Valvular heart disease H/O mitral, aortic valve replacement in 2013 Cardiorenal syndrome S/P ICD -CXR: Interstitial thickening and bilateral opacities. Pulmonary edema is favored however an infectious process could appear similar. Small bilateral pleural effusions. Stable cardiomegaly. -ECHO in July 2020: Severe global hypokinesis, EF 15 to 20% End-stage cardiomyopathy with recurrent heart failure's Very poor prognosis Appreciate cardiology, nephrology Started on Lasix drip, metoprolol Monitor I's and O's, daily weight Palliative care to address goals of care--Appreciate Input Continue supplemental oxygen as needed Acute kidney injury on CKD IV Cardiorenal syndrome Vs ATN Cr:3.25 Monitor renal function Appreciate nephrology input Urinary tract infection-POA Urine culture growing gram-negative bacilli Continue Rocephin empirically Paroxysmal atrial fibrillation Continue amiodarone, metoprolol Currently not on anticoagulation Coronary artery disease S/P CABG Continue home medications DM II Last HbA1c 6.8 Continue insulin therapy DVT Px: Heparin SQ CODE STATUS DNI DNR Admission and Anticipated Discharge Date Admission Date: October 17, 2020 Subjective Patient is seen and examined at bedside States feeling short of breath Also reports generalized weakness Denies chest pain, dizziness, nausea, abdominal pain Discussed with cardiology, nephrology today Review of Systems Review of Systems: All systems reviewed & are unremarkable except as noted in Subjective Physical Exam Physical Exam: Physical Exam: Vitals signs as noted above General Appearance:Morbidly Obese, Mild distress,+Anasarca Head: normocephalic, Atraumatic Eyes: normal inspection, EOMI Neck: supple, Trachea midline Respiratory/Chest: Normal breath sounds, + Basal rales, =ICD Cardiovascular: S1, S2, + murmur Abdomen/GI:Soft, Non tender, Bowel sounds present Extremities/Musculoskeletal:normal inspection, B/L LE edema Neurologic/Psych:AAOX3, grossly no focal neurological deficits Skin: normal color, warm Results & Data Results & Data ([facility]) Vital Signs (Past 12 Hours) Vital Signs Temp Pulse Pulse Resp BP BP Pulse Ox 10/18/20 15:23 72 18 96 10/18/20 15:14 36.3 C L 73 19 111/73 94 10/18/20 14:53 71 10/18/20 10:52 83 18 95 10/18/20 10:43 36.3 C L 69 17 108/63 97 10/18/20 07:24 66 10/18/20 07:08 36.5 C 64 18 104/60 100 10/18/20 06:56 89 89 19 85 L Laboratory Results Short CBC 10/18/20 Range/Units 09:14 WBC 6.31 (4.8-10.8) K/uL Hgb 8.6 L (14.0-18.0) g/dL Hct 27.5 L (42-52) % Plt Count 208 (130-400) K/uL BMP 10/18/20 09:14 Sodium 136 Potassium 4.3 Chloride 98 Carbon Dioxide 27 BUN 75 H Creatinine 3.25 H Glucose 102 H Calcium 8.2 L Cardiac Enzymes 10/17/20 10/18/20 Range/Units 19:31 01:39 Troponin I 0.047 H* 0.050 H* (0-0.045) ng/ml
[2020-10-18] MEDS: ATORVASTATIN 40 MG TAB PO SCH (20:31)
[2020-10-19] MEDS: FUROSEMIDE 100 MG in DEXTROSE 5% 90 ML IV SCH ×4 (03:59→23:08)
[2020-10-19] MEDS: HEPARIN SOD 5,000 UNIT/0.5 ML VIAL SQ SCH ×3 (06:09→21:31)
[2020-10-19] MEDS: ALBUT/IPRATROP 3MG/0.5MG NEB 3 ML VIAL INH SCH ×4 (07:33→20:17)
[2020-10-19 08:18] LABS: BUN Creatinine Ratio 24.3 (10-20); Calcium 8.5 mg/dl (8.5-10.1); Creatinine Clr Calc Pharmacy 27.5 ml/min; Est GFR (African American) 21.1 ml/min; Est GFR (Non-African American) 18.2 ml/min; Potassium 3.6 mmol/L (3.5-5.1)
[2020-10-19] MEDS: METOPROLOL SUCC 25MG EXT REL TAB PO SCH (08:23)
[2020-10-19] MEDS: MAGNESIUM OXIDE 400 MG TAB PO SCH (08:23)
[2020-10-19] MEDS: GABAPENTIN 100 MG CAP PO SCH ×2 (08:23→21:30)
[2020-10-19] MEDS: ISOSORBIDE MONO EXTENDED REL 30 MG TABCR PO SCH (08:24)
[2020-10-19] MEDS: PANTOprazole 40 MG TAB PO SCH (08:24)
[2020-10-19] MEDS: metOLazone 5 MG TABLET PO SCH (08:24)
[2020-10-19] MEDS: DULoxetine HCL 20 MG CAP PO SCH (08:24)
[2020-10-19] MEDS: DOCUSATE SODIUM 100 MG CAP PO SCH ×2 (08:24→16:16)
[2020-10-19] MEDS: CLOPIDOGREL BISULFATE 75 MG TAB PO SCH (08:24)
[2020-10-19] MEDS: AMIODARONE 200 MG TAB PO SCH (08:24)
[2020-10-19] MEDS: POTASSIUM CHLORIDE CRTAB 20 MEQ TABCR PO SCH ×3 (08:24→16:18)
[2020-10-19] MEDS: INSULIN ASPART 100 UNITS/ML 3 ML PEN SC SCH ×4 (08:25→21:37)
[2020-10-19] MEDS ORDERED: POTASSIUM CHLORIDE CRTAB 20 MEQ TABCR PO ONE (09:00)
[2020-10-19] MEDS: cefTRIAXone SODIUM 2,000 MG in DEXTROSE 5% 50 ML IV SCH (10:04)
--- NOTE | 2020-10-19 10:09 | Nephrology Progress Note ---
Date of Service October 19, 2020 Assessment & Plan Admission and Anticipated Discharge Date Admission Date: October 17, 2020 Subjective Only 1100 ml urine despite lasix drip. GENERAL: Elderly white male who is not in any major overt respiratory distress in resting position; however, he does look weak and chronically ill. He is awake, alert, oriented x3. HEENT: Mucous membrane is moist. NECK: Supple. Jugular venous distention present. CHEST: Bilaterally very diminished breath sounds, poor quality examination limiting accurate findings. CARDIOVASCULAR: S1 and S2 regular. Soft systolic murmur heard. ABDOMEN: Soft, nontender, obese with abdominal wall edema. EXTREMITIES: Show anasarca bilaterally. LABORATORY TEST: Reviewed. Baseline creatinine in the mid 2s, current creatinine 3.2. No electrolyte abnormality. Chest x-ray shows pulmonary edema. BNP is 31,000. Urine dipstick done yesterday showed some trace blood, trace protein. ASSESSMENT AND PLAN: A 74-year-old male with what appears to be like a terminal cardiac disease at this time with a very, very low ejection fraction and associated chronic kidney disease. I have been consulted for acute renal failure on background chronic kidney disease. Acute renal failure: The acute component could be cardiorenal syndrome versus superimposed acute tubular necrosis in a patient who already has a preexisting chronic kidney disease IV from combination of longstanding diabetes and very poor ejection fraction. He is massively edematous/anasarca at this time and would benefit to some extent with the diuretics. I did explain to him that this is more of a symptom management, but not a definitive treatment of his underlying cardiac disease. He is thinking about doing palliative medicine with comfort care. However, as of now, he is not on comfort care. RECOMMENDATIONS: 1. Raise Lasix drip to 20/hr. 2. Metolazone 5 mg daily. 3. If he decides to do comfort care, we will switch over to torsemide 100 twice daily with metolazone. 4. Even if he does comfort care, I think some diuresis to lower his excessive edema can be regarded as comfort measure. 5. He will not be a candidate for dialysis and he does not want it anyway. . Results & Data ([facility]) Vital Signs (Past 12 Hours) Vital Signs Temp Pulse Resp BP BP Pulse Ox 10/19/20 08:02 36.7 C 66 18 150/60 H 95 10/19/20 07:37 70 18 97 10/19/20 04:00 35.9 C L 71 20 109/76 90 10/19/20 00:33 36.1 C L 72 20 123/71 89 L
--- NOTE | 2020-10-19 16:13 | Cardiology Progress Note ---
Date of Service October 19, 2020 Assessment & Plan (1) Acute on chronic systolic heart failure: (2) Cardiorenal syndrome with renal failure: (3) Valvular heart disease: (4) ICD (implantable cardioverter-defibrillator) battery depletion: (5) PAF (paroxysmal atrial fibrillation): Plan: Again, I discussed patient's complex cardiovascular status with end-stage cardiomyopathy and recurrent heart failure and cardiorenal syndrome. Poor prognosis reviewed. Patient working with hospice care at this time. He is agreeable to deactivation of ICD therapies. Risk of remaining off warfarin reviewed. He voiced understanding. Continue current medications as previously ordered. Admission and Anticipated Discharge Date Admission Date: October 17, 2020 Subjective Patient seen and examined at the bedside. Minimal urine output despite titration of IV Lasix infusion. Patient subjective dyspnea unchanged. He is deciding to move forward with hospice care. Denies chest discomfort. Telemetry reveals a paced rhythm. Review of Systems Review of Systems: All systems reviewed & are unremarkable except as noted in Subjective Physical Exam Constitutional: well developed, well nourished and + morbidly obese Respiratory: normal respiratory effort; no respiratory distress, no labored breathing and no retractions Auscultation: + diminished lung sounds (Bases bilateral) and + rales (Bases bilateral); no rhonchi and no wheezes Cardiovascular: Rate/Rhythm: regular rate and regular rhythm Heart Sounds: normal S1, normal S2 and + murmur (1/6 systolic ejection murmur heard best at the base.) Vessels: + JVD (Difficult to assess due to body habitus); no carotid bruit Extremities: + edema (Anasarca) Gastrointestinal (Abdomen): Inspection/Auscultation: abdomen normal to inspection, normal bowel sounds and + abdominal edema; abdomen not distended Percussion/Palpation: abdomen soft; abdomen nontender, no guarding and abdomen not rigid Neurologic: moves all extremities; no focal motor deficits Motor/Sensory: no tremor Psychiatric: A+Ox3, euthymic affect Results & Data ([facility]) Vital Signs (Past 12 Hours) Vital Signs Temp Pulse Pulse Resp BP Pulse Ox Pulse Ox 10/19/20 15:47 36.7 C 67 19 133/67 98 10/19/20 15:39 73 18 96 10/19/20 13:50 99 10/19/20 12:06 36.9 C 88 20 158/73 H 95 10/19/20 11:37 66 18 98 10/19/20 08:12 63 10/19/20 08:02 36.7 C 66 18 150/60 H 95 10/19/20 07:37 70 18 97 Pulse Ox Pulse Ox 10/19/20 15:47 10/19/20 15:39 10/19/20 13:50 99 82 L 10/19/20 12:06 10/19/20 11:37 10/19/20 08:12 10/19/20 08:02 10/19/20 07:37
--- NOTE | 2020-10-19 16:28 | Palliative Care Progress Note ---
Date of Service October 19, 2020 Assessment & Plan (1) SOB (shortness of breath): Plan: with exertion. Continue oxygen and diuresis. We did discuss other options including opioids for relief of air hunger if these are not effective. (2) Palliative care encounter: Plan: I talked with Mr. Durham at bedside today and we reviewed our conversation from yesterday. He understands that lasix is having the effect that we'd hoped for and the poor prognosis associated with cardiorenal syndrome. He again talks about his hope to live to his 75th birthday next month but acknowledges that may not happen. He tells me that he would not want dialysis if lasix infusion is not effective. He would like to wait another day to see if diuresis improves. If not, he would want his focus of care to be comfort. If that were the case, we would want to contact a medical field representative to deactivate his ICD. He is considering return to [facility] with hospice. However, I think it would be bergeron to ensure that his symptoms are controlled here before transfer and I did let him know that he may not survive for transfer to [facility]. At his request, I spoke with Geraldine cobb, by phone and updated her. She understands and supports his decision and asked how she can best help him at this time. She has been very supportive and has been keeping other family members up to date. (3) Chronic HFrEF (heart failure with reduced ejection fraction): (4) Acute respiratory failure with hypoxemia: (5) Pulmonary hypertension: (6) OBED (obstructive sleep apnea): (7) Cardiorenal syndrome with renal failure: (8) ICD (implantable cardioverter-defibrillator) battery depletion: Admission and Anticipated Discharge Date Admission Date: October 17, 2020 Subjective Now on furosemide infusion. Per RN UOP 500cc this shift. He had syncopal episode getting out of bed to chair today. Review of Systems Review of Systems: [place] Symptom Assessment Scale Pain 1/3 Dyspnea 1/3 Fatigue 2/3 Drowsiness 1/3 Anxiety 0/3 Palliative Performance Score 30% Physical Exam Constitutional: + ill appearing; no acute distress Respiratory: + uses accessory muscles Cardiovascular: anasarca Gastrointestinal (Abdomen): Inspection/Auscultation: + significant pannus Neurologic: awake; not confused Results & Data ([place]) Vital Signs (Past 12 Hours) Vital Signs Temp Pulse Pulse Resp BP Pulse Ox Pulse Ox 10/19/20 15:47 98.1 F 67 19 133/67 98 10/19/20 15:39 73 18 96 10/19/20 13:50 99 10/19/20 12:06 98.4 F 88 20 158/73 H 95 10/19/20 11:37 66 18 98 10/19/20 08:12 63 10/19/20 08:02 98.1 F 66 18 150/60 H 95 10/19/20 07:37 70 18 97 Pulse Ox Pulse Ox 10/19/20 15:47 10/19/20 15:39 10/19/20 13:50 99 82 L 10/19/20 12:06 10/19/20 11:37 10/19/20 08:12 10/19/20 08:02 10/19/20 07:37 PG Care Time/CCT Total # of Minutes Spent Total Time Spent: 40 Total Time Spent with Patient: Total time spent is greater than 50% in coordination of care (as documented) at patient's floor/unit and/or counseling patient: goals of care, hospice, symptom management, family education and support. Coding Level of Care Code 62922 Subseq Hosp Care Lvl 3 Diagnoses SOB (shortness of breath) R06.02 Palliative care encounter Z51.5 Chronic HFrEF (heart failure with reduced ejection fraction) I50.22 Acute respiratory failure with hypoxemia J96.01 Pulmonary hypertension I27.20 OBED (obstructive sleep apnea) G47.33 Cardiorenal syndrome with renal failure I13.10 ICD (implantable cardioverter-defibrillator) battery depletion Z45.02
--- NOTE | 2020-10-19 18:48 | Hospitalist Progress Note ---
Date of Service October 19, 2020 Assessment & Plan (1) Acute on chronic systolic heart failure: Plan: Acute on chronic systolic heart failure Chronic respiratory failure with hypoxia- secondary to above Valvular heart disease H/O mitral, aortic valve replacement in 2013 Cardiorenal syndrome S/P ICD -CXR: Interstitial thickening and bilateral opacities. Pulmonary edema is favored however an infectious process could appear similar. Small bilateral pleural effusions. Stable cardiomegaly. -ECHO in July 2020: Severe global hypokinesis, EF 15 to 20% End-stage cardiomyopathy with recurrent heart failure's Very poor prognosis Appreciate cardiology, nephrology Continue Lasix drip, metolazone Monitor I's and O's, daily weight Appreciate Palliative care Input Continue supplemental oxygen as needed Poor diuresis despite Lasix drip Increase Lasix to 20 mg/hr Plan to transition to comfort care if no improvement despite aggressive diuresis Acute kidney injury on CKD IV Cardiorenal syndrome Vs ATN Cr:3.2 Monitor renal function Appreciate nephrology input Urinary tract infection-POA Urine culture: Citrobacter Freundii Continue Rocephin Day #2 Paroxysmal atrial fibrillation Continue amiodarone, metoprolol Currently not on anticoagulation Coronary artery disease S/P CABG Continue home medications DM II Last HbA1c 6.8 Continue insulin therapy DVT Px: Heparin SQ CODE STATUS DNI DNR Admission and Anticipated Discharge Date Admission Date: October 17, 2020 Subjective Patient is seen and examined at bedside Only minimal diuresis despite Lasix drip Subjectively feels less dyspneic today No new complaints Denies chest pain, dizziness, nausea, abdominal pain Review of Systems Review of Systems: All systems reviewed & are unremarkable except as noted in Subjective Physical Exam Physical Exam: Physical Exam: Vitals signs as noted above General Appearance:Morbidly Obese, Mild distress,+Anasarca Head: normocephalic, Atraumatic Eyes: normal inspection, EOMI Neck: supple, Trachea midline Respiratory/Chest: Normal breath sounds, + Basal rales, +ICD Cardiovascular: S1, S2, + murmur Abdomen/GI:Soft, Non tender, Bowel sounds present Extremities/Musculoskeletal:normal inspection, B/L LE edema Neurologic/Psych:AAOX3, grossly no focal neurological deficits Skin: normal color, warm Results & Data Results & Data ([facility]) Vital Signs (Past 12 Hours) Vital Signs Temp Pulse Pulse Resp BP Pulse Ox Pulse Ox 10/19/20 16:41 70 10/19/20 15:47 36.7 C 67 19 133/67 98 10/19/20 15:39 73 18 96 10/19/20 13:50 99 10/19/20 12:06 36.9 C 88 20 158/73 H 95 10/19/20 11:37 66 18 98 10/19/20 08:12 63 10/19/20 08:02 36.7 C 66 18 150/60 H 95 10/19/20 07:37 70 18 97 Pulse Ox Pulse Ox 10/19/20 16:41 10/19/20 15:47 10/19/20 15:39 10/19/20 13:50 99 82 L 10/19/20 12:06 10/19/20 11:37 10/19/20 08:12 10/19/20 08:02 10/19/20 07:37 Laboratory Results BMP 10/19/20 06:29 Sodium 136 Potassium 3.6 D Chloride 97 L Carbon Dioxide 29 BUN 78 H Creatinine 3.20 H Glucose 104 H Calcium 8.5
[2020-10-19] MEDS: ATORVASTATIN 40 MG TAB PO SCH (21:31)
[2020-10-20] MEDS: FUROSEMIDE 100 MG in DEXTROSE 5% 90 ML IV SCH ×2 (05:32→11:58)
[2020-10-20] MEDS: HEPARIN SOD 5,000 UNIT/0.5 ML VIAL SQ SCH (05:33)
[2020-10-20] MEDS: ALBUT/IPRATROP 3MG/0.5MG NEB 3 ML VIAL INH SCH ×2 (07:43→11:19)
[2020-10-20 07:51] VITALS: O2SAT 97
[2020-10-20 08:06] LABS: BUN Creatinine Ratio 23.8 (10-20); Calcium 8.4 mg/dl (8.5-10.1); Creatinine Clr Calc Pharmacy 26.1 ml/min; Est GFR (African American) 20.7 ml/min; Est GFR (Non-African American) 17.9 ml/min
[2020-10-20] MEDS: INSULIN ASPART 100 UNITS/ML 3 ML PEN SC SCH ×2 (08:48→12:38)
[2020-10-20] MEDS: CHOLECALCIFEROL 1,000 UNITS 25 MCG TAB PO SCH (08:50)
[2020-10-20] MEDS: DULoxetine HCL 20 MG CAP PO SCH (08:50)
[2020-10-20] MEDS: PANTOprazole 40 MG TAB PO SCH (08:50)
[2020-10-20] MEDS: ISOSORBIDE MONO EXTENDED REL 30 MG TABCR PO SCH (08:50)
[2020-10-20] MEDS: MAGNESIUM OXIDE 400 MG TAB PO SCH (08:51)
[2020-10-20] MEDS: metOLazone 5 MG TABLET PO SCH (08:51)
[2020-10-20] MEDS: CLOPIDOGREL BISULFATE 75 MG TAB PO SCH (08:51)
[2020-10-20] MEDS: METOPROLOL SUCC 25MG EXT REL TAB PO SCH (08:51)
[2020-10-20] MEDS: AMIODARONE 200 MG TAB PO SCH (08:51)
[2020-10-20] MEDS: DOCUSATE SODIUM 100 MG CAP PO SCH (08:52)
[2020-10-20] MEDS: POTASSIUM CHLORIDE CRTAB 20 MEQ TABCR PO SCH (08:52)
[2020-10-20] MEDS: GABAPENTIN 100 MG CAP PO SCH (08:52)
[2020-10-20] MEDS: cefTRIAXone SODIUM 2,000 MG in DEXTROSE 5% 50 ML IV SCH (11:03)
[2020-10-20 11:21] VITALS: PULSE 67
[2020-10-20 11:24] VITALS: TEMP 98.1
--- NOTE | 2020-10-20 11:29 | Hospitalist Progress Note ---
Date of Service October 20, 2020 Assessment & Plan (1) Acute on chronic systolic heart failure: Plan: Acute on chronic systolic heart failure Chronic respiratory failure with hypoxia- secondary to above Valvular heart disease H/O mitral, aortic valve replacement in 2013 Cardiorenal syndrome S/P ICD -CXR: Interstitial thickening and bilateral opacities. Pulmonary edema is favored however an infectious process could appear similar. Small bilateral pleural effusions. Stable cardiomegaly. -ECHO in July 2020: Severe global hypokinesis, EF 15 to 20% End-stage cardiomyopathy with recurrent heart failure's Very poor prognosis Appreciate cardiology, nephrology Continue Lasix drip, metolazone Monitor I's and O's, daily weight Appreciate Palliative care Input Continue supplemental oxygen as needed Poor diuresis despite Lasix drip To transition IV Lasix to torsemide upon discharge. Patient and Patient's family agreed to transition to comfort care upon discharge Plan to discharge to SNF with Hospice services Acute kidney injury on CKD IV Cardiorenal syndrome Vs ATN Cr:3.25 Monitor renal function Appreciate nephrology input Urinary tract infection-POA Urine culture: Citrobacter Freundii Continue Rocephin Day #3 Paroxysmal atrial fibrillation Continue amiodarone, metoprolol Currently not on anticoagulation Coronary artery disease S/P CABG Continue home medications DM II Last HbA1c 6.8 Continue insulin therapy DVT Px: Heparin SQ CODE STATUS DNI DNR Admission and Anticipated Discharge Date Admission Date: October 17, 2020 Subjective Patient is seen and examined at bedside Poor diuresis despite aggressive Lasix drip Discussed with patient at bedside in detail: Preferred to be transition to comfort care Updated patient's family over phone Less dyspnea today Denies chest pain, dizziness, nausea, abdominal pain Discussed with Cardiology today Review of Systems Review of Systems: All systems reviewed & are unremarkable except as noted in Subjective Physical Exam Physical Exam: Physical Exam: Vitals signs as noted above General Appearance:Morbidly Obese, Mild distress,+Anasarca Head: normocephalic, Atraumatic Eyes: normal inspection, EOMI Neck: supple, Trachea midline Respiratory/Chest: Normal breath sounds, + Basal rales, +ICD Cardiovascular: S1, S2, + murmur Abdomen/GI:Soft, Non tender, Bowel sounds present Extremities/Musculoskeletal:normal inspection, B/L LE edema Neurologic/Psych:AAOX3, grossly no focal neurological deficits Skin: normal color, warm Results & Data Results & Data ([facility]) Vital Signs (Past 12 Hours) Vital Signs Temp Pulse Pulse Resp BP Pulse Ox 10/20/20 11:23 36.7 C 67 17 106/68 97 10/20/20 11:20 67 20 97 10/20/20 08:00 35.2 C L 72 71 18 104/60 97 10/20/20 07:44 70 70 20 97 10/20/20 03:46 36.7 C 74 20 134/71 99 10/20/20 03:20 90 22 93 Laboratory Results BMP 10/20/20 10/20/20 06:52 08:15 Sodium 135 L Potassium 3.6 Chloride 96 L Carbon Dioxide 29 BUN 77 H Creatinine 3.25 H Glucose 94 Calcium 8.4 L
--- NOTE | 2020-10-20 11:52 | Discharge Summary ---
Date of Service October 20, 2020 Admission HPI Per Admitting Provider This is a 74 y/o male with a PMH of ischemic cardiomyopathy, CAD with history of CABG x1 and angioplasty, biventricular AICD in place, chronic HFrEF with diastolic dysfunction, history of aortic valve and mitral valve replacements, PAF previously on chronic AC with warfarin, HTN, dyslipidemia, OBED on CPAP, insulin-dependent T2DM, CKD, depression, and GERD who presents to ED due to progressive dyspnea and peripheral edema. Pt was recently admitted 08/16-08/31/20 with acute on chronic systolic heart failure and JUAN on CKD with cardiorenal syndrome. Initially required BiPAP, Lasix gtt, and dobutamine. He was discha rged on oxygen at 2-3 L. Discharged to [facility] for rehab and due to inability to live alone safely. Since being there, pt reports that he initially did okay with some progress in physical therapy and a stable oxygen requirement of 2 liters. However, over the past few weeks, he has noticed increased peripheral edema. Over the past week, he has noted progressive dyspnea on exertion although he feels like his breathing at rest is at baseline. He has been evaluated multiple times at [facility] but initially was refusing hospitalization because he wanted to talk to his cardiology provider, Bryson Michelle PA-C tomorrow at his appointment about his treatment plan. However, today, he fell twice and was finally agreeable to transport to the ED and possible admission. Currently, he reports his breathing is stable at rest but he does become dyspneic with prolonged conversation or going to the bathroom. He denies chest pain, palpitations, dizziness, N/V or syncope. He did have two falls today related to generalized weakness, but worse in his lower extremities. He has had an 18 lb wt gain since last week per the SNF notes. Admission Exam Per Admitting Provider Physical Exam Constitutional: well developed and well nourished; no acute distress Eyes: + anicteric sclerae; no corneal abnormality Neck: trachea midline Respiratory: no respiratory distress and no labored breathing Auscultation: + diminished lung sounds and + rales (left > right base); no wheezes Cardiovascular: Rate/Rhythm: regular rate and regular rhythm Heart Sounds: no gallop and no cardiac rub Vessels: radial pulses present Extremities: + edema (3+ pitting edema in LE, 2+ in LUE, 1+ in RUE) Gastrointestinal (Abdomen): Inspection/Auscultation: normal bowel sounds; abdomen not distended Percussion/Palpation: abdomen soft; abdomen nontender Musculoskeletal: Head/Neck/Chest: normocephalic and head atraumatic; + neck not supple Skin: +areas of ecchymosis on right > left UE Neurologic: moves all extremities; not confused Psychiatric: A+Ox3, euthymic affect Principal Diagnosis Acute on chronic systolic heart failure Chronic respiratory failure with hypoxia Acute kidney injury Urinary tract infection Discharge Data Allergies Allergy/AdvReac Type Severity Reaction Status Date / Time No Known Allergies Allergy Verified 10/17/20 14:44 Consultations 10/17/20 14:45 ED Decision to Admit Stat 10/17/20 18:29 Consult Nephrology Routine Consult Palliative Care Routine 10/18/20 10:34 Consult Cardiology Routine Hospital Course (1) Acute on chronic systolic heart failure: Acute on chronic systolic heart failure Chronic respiratory failure with hypoxia- secondary to above Valvular heart disease H/O mitral, aortic valve replacement in 2013 Cardiorenal syndrome S/P ICD -CXR: Interstitial thickening and bilateral opacities. Pulmonary edema is favored however an infectious process could appear similar. Small bilateral pleural effusions. Stable cardiomegaly. -ECHO in July 2020: Severe global hypokinesis, EF 15 to 20% End-stage cardiomyopathy with recurrent heart failure's Very poor prognosis Appreciate cardiology, nephrology Continue Lasix drip, metolazone Monitor I's and O's, daily weight Appreciate Palliative care Input Continue supplemental oxygen as needed Poor diuresis despite Lasix drip To transition IV Lasix to torsemide upon discharge. Patient and Patient's family agreed to transition to comfort care upon discharge Plan to discharge to SNF with Hospice services Acute kidney injury on CKD IV Cardiorenal syndrome Vs ATN Cr:3.25 Monitor renal function Appreciate nephrology input Urinary tract infection-POA Urine culture: Citrobacter Freundii Continue Rocephin Day #3 Paroxysmal atrial fibrillation Continue amiodarone, metoprolol Currently not on anticoagulation Coronary artery disease S/P CABG Continue home medications DM II Last HbA1c 6.8 Continue insulin therapy DVT Px: Heparin SQ CODE STATUS DNI DNR Total Time Total Time Spent Total Time Spent (In Minutes): 42 minutes Discharge Plan Discharge Items Patient Disposition: Transfer Longterm Fac Reason For Visit: CHF Discharge Diagnosis: Acute on chronic systolic heart failure Chronic respiratory failure with hypoxia Acute kidney injury Urinary tract infection Activity: Per Instructions section Non-emergency contact: Primary Care Provider Call non-emergency contact if: you have any medication questions, your symptoms worsen, your pain is concerning for you and you have a fever Follow-up/Referrals: [facility] [Primary Care Provider] - Diet: Carb Consistent or DM2, Heart Healthy and Low Sodium (2gm) Addtl Attending Provider Instructions: Follow up with Hospice services for further management Pending Studies at Discharge: No Stand-Alone Forms: My [facility] Skilled Items Patient informed of condition?: Yes DNR: Yes Discharge Level of Care: Skilled Communicable Disease: No Discharge Prognosis: Stable Lines: None Urinary Catheter: Yes Medications and DC Order Prescriptions: New cefdinir 300 mg capsule 300 mg PO DAILY 4 Days Qty: 4 RF: 0 Continued clopidogrel 75 mg tablet 75 mg PO QAM RF: 0 nitroglycerin 0.4 mg tablet, sublingual 0.4 mg sublingual DIRECTED PRN (Reason: Chest Pain) RF: 0 omeprazole 20 mg capsule,delayed release(DR/EC) 20 mg PO DAILY RF: 0 albuterol sulfate 90 mcg/actuation HFA aerosol inhaler 2 puff INHALATION Q6H PRN (Reason: Shortness Of Breath Or Wheezing) RF: 0 ascorbic acid (vitamin C) [Vitamin C] 500 mg Tablet,Chewable 500 mg PO BIDM RF: 0 docusate sodium 100 mg Capsule 100 mg PO BIDM RF: 0 atorvastatin 80 mg tablet 80 mg PO HS RF: 0 cyanocobalamin (vitamin B-12) 1,000 mcg/mL Solution 1,000 mcg IM MONTHLY RF: 0 magnesium oxide 400 mg magnesium Tablet 400 mg PO DAILY RF: 0 duloxetine 20 mg capsule,delayed release(DR/EC) 20 mg PO QAM RF: 0 cholecalciferol (vitamin D3) [Vitamin D3] 125 mcg (5,000 unit) Tablet 125 mcg PO Q2D RF: 0 insulin aspart U-100 [Novolog Flexpen U-100 Insulin] 100 unit/mL (3 mL) insulin pen 8 unit subcut AC Qty: 15 RF: 0 amiodarone 200 mg tablet 200 mg PO DAILY Qty: 30 RF: 0 metolazone 2.5 mg Tablet 2.5 mg PO BID RF: 0 acetaminophen [Tylenol] 325 mg Tablet 650 mg PO Q6H PRN (Reason: TEMP/PAIN) RF: 0 ipratropium-albuterol 0.5 mg-3 mg(2.5 mg base)/3 mL Solution For Nebulization 3 ml INHALATION QID RF: 0 isosorbide mononitrate 30 mg Tablet Extended Release 24 Hr 30 mg PO QAM RF: 0 tramadol 50 mg Tablet 50 - 100 mg PO Q6H PRN (Reason: Pain (Scale Score 5-10)) RF: 0 magnesium hydroxide [Milk of Magnesia] 400 mg/5 mL Suspension 30 ml PO DAILY PRN (Reason: Constipation) RF: 0 gabapentin 100 mg Capsule 100 mg PO AMHS RF: 0 metoprolol succinate 25 mg Tablet Extended Release 24 Hr 12.5 mg PO DAILY RF: 0 potassium chloride 20 mEq Tablet Extended Release 20 meq PO TIDM RF: 0 Tresiba FlexTouch U-100 100 unit/mL (3 mL) insulin pen 10 unit subcut QAM RF: 0 Changed torsemide 20 mg Tablet 100 mg PO BIDM Qty: 0 RF: 0 Discharge Orders: Discharge Order (Routine); Ordered 10/20/20 Ordered By: Delta Benedict Admission Data Admit Date/Time: 10/17/20 15:04 Attending Provider: Delta Benedict Admit Provider: Corwin Paredse Primary Care Provider: [facility] Other Providers: Gama Hollis ; Augustina Sloan ; Bryan Iglesias ; [facility] ; [facility], Other Interventions: Discharge Summary Assessment (RN) Last Done: 10/20/20 12:41
[2020-10-20 12:43] VITALS: BP 109/76
== END 2020-10-20 13:39 ==
LOC: ED 12:43 → 2S 15:04 → INTOOBSV 15:04 → SUATTDRO 15:04 → 2S 17:51